=== PATIENT | female | born 1940 | race Caucasian/White ===

== ENCOUNTER 2017-01-13 11:40 | Emergency (ER) | payer OTHER ==
[2017-01-13 12:00] VITALS: TEMP 98.2; BMI 27.3
[2017-01-13 13:50] LABS: BASOPHIL 0.6 % (0-2.0); EOSINOPHIL 5.6 % (0-4.5); MCH 31.7 pg (25.7-33.7); MCHC 34.4 g/dl (32.0-36.0); MEAN CELL VOLUME 91.9 fl (80-96); MEAN PLT VOLUME 8.4 fl (7.5-11.1); NEUTROPHILS 61.6 % (42.8-82.8); PLATELET COUNT 108 K/MM3 (134-434); RDW 13.4 % (11.6-15.6); WHITE BLOOD COUNT 5.1 K/mm3 (4.0-10.0)
[2017-01-13 14:44] LABS: ALBUMIN 2.8 g/dl (3.4-5.0); ANION GAP 6 (8-16); CALCIUM 9.1 mg/dL (8.5-10.1); CO2 30 mmol/L (21-32)
[2017-01-13 14:49] LABS: URINE APPEARANCE CLEAR; URINE BILIRUBIN NEGATIVE (NEGATIVE); URINE BLOOD NEGATIVE (NEGATIVE); URINE COLOR YELLOW; URINE GLUCOSE (UA) 3+ (NEGATIVE); URINE KETONE NEGATIVE (NEGATIVE); URINE LEUK ESTERASE TRACE (NEGATIVE); URINE NITRITE NEGATIVE (NEGATIVE); URINE PROTEIN NEGATIVE (NEGATIVE); URINE UROBILINOGEN NEGATIVE mg/dL (0.2-1.0)
[2017-01-13 14:50] LABS: ALK PHOS 193 U/L (45-117); BILIRUBIN,TOTAL 1.7 mg/dL (0.2-1.0); CPK 51 IU/L (26-192); CREATININE 0.7 mg/dL (0.55-1.02); SGOT/AST 63 U/L (15-37); SGPT/ALT 44 U/L (12-78); TOT PROT 7.2 g/dl (6.4-8.2); TROPONIN I < 0.02 ng/ml (0.00-0.05)
[2017-01-13 14:53] LABS: URINE BACTERIA FEW /hpf (NONE SEEN); URINE HYALINE CAST 3 /lpf; URINE RBC <1 /hpf (0-3); URINE WBC 7 /hpf (3-5)
[2017-01-13 14:56] LABS: GLUCOSE,RANDOM 317 mg/dL (74-106)
[2017-01-13] MEDS ORDERED: Insulin (LOG) Aspart 100 UNITS/ML VIAL SQ ONE (15:00)
[2017-01-13] MEDS ORDERED: ACETAMINOPHEN 325 MG TABLET (FP) PO ONE (15:23)
[2017-01-13] MEDS ORDERED: ACETAMINOPHEN 325 MG TABLET (FP) ONE (15:31)
--- NOTE | 2017-01-13 15:31 | EKG ---
Test Reason : Blood Pressure : / mmHG Vent. Rate : 074 BPM Atrial Rate : 074 BPM P-R Int : 154 ms QRS Dur : 086 ms QT Int : 396 ms P-R-T Axes : 066 008 034 degrees QTc Int : 439 ms NORMAL SINUS RHYTHM POSSIBLE LEFT ATRIAL ENLARGEMENT POSSIBLE ANTERIOR INFARCT , AGE UNDETERMINED ABNORMAL ECG WHEN COMPARED WITH ECG OF 07-DEC-2015 17:58, NO SIGNIFICANT CHANGE WAS FOUND Confirmed by MARYANA SHEPARD, KEITH ([id number]) on 01/13/2017 3:31:21 PM Referred By: Confirmed By:KEITH MIJARES MD
--- NOTE | 2017-01-13 17:02 | PDOC ---
*Physical Exam - Vital Signs Last Vital Signs Temp Pulse Resp BP Pulse Ox 98.2 F 71 18 154/74 98 01/13/17 11:53 01/13/17 15:44 01/13/17 15:44 01/13/17 15:44 01/13/17 15:44 - Physical Exam General Appearance: Yes: Nourished, Appropriately Dressed HEENT: positive: EOMI Neck: positive: Supple Respiratory/Chest: positive: Lungs Clear Cardiovascular: positive: Regular Rhythm, Regular Rate Vascular Pulses: Dorsalis-Pedis (R): 2+ Gastrointestinal/Abdominal: positive: Normal Bowel Sounds, Soft Musculoskeletal: positive: Normal Inspection Extremity: positive: Normal Capillary Refill, Normal Range of Motion Integumentary: positive: Normal Color, Dry, Warm Neurologic: positive: kiln firer helper II-XII NML intact, Fully Oriented, Alert, Motor Strength 09/10 ED Treatment Course - LABORATORY CBC & Chemistry Diagram: 01/13/17 12:57 01/13/17 12:57 - ADDITIONAL ORDERS Additional order review: Laboratory Results 01/13/17 01/13/17 14:33 12:57 Sodium 139 Potassium 4.7 Chloride 103 Carbon Dioxide 30 D Anion Gap 6 L BUN 7 Creatinine 0.7 Creat Clearance w eGFR > 60 Random Glucose 317 H* D Calcium 9.1 Total Bilirubin 1.7 H AST 63 H D ALT 44 D Alkaline Phosphatase 193 H Creatine Kinase 51 Troponin I < 0.02 Total Protein 7.2 Albumin 2.8 L D Urine Color Yellow Urine Appearance Clear Urine pH 6.0 Urine Protein Negative Urine Glucose (UA) 3+ H D Urine Ketones Negative Urine Blood Negative Urine Nitrite Negative Urine Bilirubin Negative Urine Urobilinogen Negative Ur Leukocyte Esterase Trace Urine RBC <1 Urine WBC 7 Ur Epithelial Cells Rare Urine Bacteria Few Hyaline Casts 3 01/13/17 12:57 RBC 4.41 MCV 91.9 MCHC 34.4 RDW 13.4 D MPV 8.4 D Neutrophils % 61.6 Lymphocytes % 24.5 Monocytes % 7.7 Eosinophils % 5.6 H D Basophils % 0.6 - Medications Given in the ED: ED Medications Discontinued Medications Generic Name Dose Route Start Last Admin Trade Name Freq PRN Reason Stop Dose Admin Acetaminophen 650 mg 01/13/17 15:23 01/13/17 15:35 Tylenol - PO 01/13/17 15:24 650 mg ONCE ONE Administration Insulin Aspart 10 units 01/13/17 15:00 01/13/17 15:34 Novolog SQ 01/13/17 15:01 10 units ONCE ONE Administration Medical Decision Making - Medical Decision Making 01/13/17 17:16 pt signed out pending repeat bg repeat bg was 220. pt denies all complaints at this time no cp had mild milner which has improved discussed lab results. pt stable for d/c to home with aide. answered all questions. *DC/Admit/Observation/Transfer Diagnosis at time of Disposition: Diabetes, Hyperglycemia - Discharge Dispostion Disposition: HOME Condition at time of disposition: Stable Admit: No - Referrals Referrals: Jose Harman MD [Primary Care Provider] - Kraig Matos MD [Staff Physician] - - Patient Instructions Additional Instructions: Please follow-up with Boring Machine Set Up Operator Jig and Primary Care Doctor. Please check blood sugars four times a day: before each meal and at bedtime. Desired blood sugar range is 80-120. Please return to the hospital if chest pain returns or worsens.
--- NOTE | 2017-01-13 17:04 | PDOC ---
History of Present Illness - General Chief Complaint: Chest Pain Stated Complaint: CHEST PAIN, DIZZINESS,N/V Time Seen by Provider: 01/13/17 12:07 History Source: Patient, Care Provider (Aide at bedside.) Exam Limitations: Language Barrier (Azeri speaking, windows systems engineer used. Son came later and can tranlate.) - History of Present Illness Initial Comments: 76yo F with PMH of CVA, DM, htn, hypercholesterolemia presents c/o midsternal chest pain. Pt reports having 2 episodes of chest pain: once 2 days ago which resolved on its own, and again this morning. Pt took Tylenol this morning which did not relieve the pain. The pain is worse when walking/with movement, and better with rest. Pain is non-radiating substernal, rated 7/10. Pt also c/ o dizziness, nausea, a systolic blood pressure of 200 (did not recall diastolic ) and a blood glucose of 324 this morning at the onset of the chest pain. Pt denies fever, palpitations, SOB. 01/13/17 16:39 Associated Symptoms: reports: chest pain, nausea/vomiting. denies: diaphoresis , fever/chills, headaches, syncope Aspirin Received prior to arrival: Yes: 81 mg x 1 Past History - Past Medical History Allergies/Adverse Reactions: Allergies Allergy/AdvReac Type Severity Reaction Status Date / Time levofloxacin [From Levaquin] Allergy Intermediate Rash Verified 01/13/17 11:53 Penicillins Allergy Rash Verified 01/13/17 11:53 sulfamethoxazole AdvReac Intermediate Verified 01/13/17 11:53 [From Bactrim] trimethoprim [From Bactrim] AdvReac Intermediate Verified 01/13/17 11:53 Home Medications: Ambulatory Orders Aspirin [ASA -] 81 mg PO DAILY 10/09/14 Atorvastatin Ca [Lipitor] 10 mg PO DAILY 10/09/14 Nadolol 40 mg PO DAILY 10/09/14 Albuterol Sulfate [Proventil HFA Inhaler -] 1 - 2 inh PO Q4H PRN 07/03/15 Ranitidine [Zantac -] 150 mg PO BID #60 tablet 12/17/15 Rifampin [Rifadin -] 600 mg PO MoWeFr@10 #24 capsule 12/17/15 Insulin (Levemir) [Levemir Flexpen -] 0 units SQ DAILY 01/13/17 Anemia: Yes Asthma: Yes Cancer: Yes (LEFT BREAST) Cardiac Disorders: Yes CVA: Yes (08/2011; 06/2013, right sided weakness) Diabetes: Yes GI Disorders: Yes (HX. ULCERS,ESOPHAGEAL VARICES) HTN: Yes Hypercholesterolemia: Yes Liver Disease: Yes (ALCOHOL CIRRHOSIS??-ASCITES) Psychiatric Problems: Yes (ANXIETY.) - Surgical History Cardiac Surgery: Yes (STENT X 1 in LAD 1979) - Immunization History Immunization Up to Date: Yes - Psycho/Social/Smoking Cessation Hx Anxiety: Yes Suicidal Ideation: No Smoking Status: Yes Smoking History: Former smoker Years of Tobacco Use: 5 Have you smoked in the past 12 months: No Number of Cigarettes Smoked Daily: 0 If you are a former smoker, when did you quit?: over 30 years ago Information on smoking cessation initiated: No Hx Alcohol Use: No Drug/Substance Use Hx: No Substance Use Type: None Hx Substance Use Treatment: Yes (ALCOHOL) Review of Systems - Review of Systems Constitutional: No: Chills, Diaphoresis, Fever HEENTM: No: Recent change in vision, Ear Pain, Nose Pain, Throat Pain Respiratory: No: Cough, Shortness of Breath, Stridor, Wheezing, Hemoptysis Cardiac (ROS): Yes: Chest Pain. No: Edema, Irregular Heart Rate, Lightheadedness, Palpitations, Syncope, Chest Tightness ABD/GI: Yes: Nausea. No: Abdominal Distended, Constipated, Diarrhea, Vomiting, Abdominal cramping : No: Dysuria, Hematuria Musculoskeletal: No: Joint Pain, Muscle Pain Integumentary: No: Bruising, Erythema, Rash Neurological: Yes: Dizziness. No: Headache *Physical Exam - Vital Signs Last Vital Signs Temp Pulse Resp BP Pulse Ox 98.2 F 71 18 154/74 98 01/13/17 11:53 01/13/17 15:44 01/13/17 15:44 01/13/17 15:44 01/13/17 15:44 - Physical Exam General Appearance: Yes: Nourished, Appropriately Dressed. No: Apparent Distress HEENT: positive: EOMI, Normal Voice. negative: Pale Conjunctivae, Scleral Icterus (R), Scleral Icterus (L), Rhinorrhea Neck: positive: Trachea midline, Supple Respiratory/Chest: positive: Lungs Clear, Normal Breath Sounds. negative: Respiratory Distress, Accessory Muscle Use Cardiovascular: positive: Regular Rhythm, Regular Rate, S1, S2. negative: Murmur Gastrointestinal/Abdominal: positive: Soft. negative: Distended, Guarding, Rebound, Tenderness Extremity: negative: Swelling, Calf Tenderness, Erythema Integumentary: positive: Dry, Warm. negative: Diaphoresis, Rash Neurologic: positive: Fully Oriented, Alert, Normal Mood/Affect ED Treatment Course - LABORATORY CBC & Chemistry Diagram: 01/13/17 12:57 01/13/17 12:57 - ADDITIONAL ORDERS Additional order review: Laboratory Results 01/13/17 01/13/17 14:33 12:57 Sodium 139 Potassium 4.7 Chloride 103 Carbon Dioxide 30 D Anion Gap 6 L BUN 7 Creatinine 0.7 Creat Clearance w eGFR > 60 Random Glucose 317 H* D Calcium 9.1 Total Bilirubin 1.7 H AST 63 H D ALT 44 D Alkaline Phosphatase 193 H Creatine Kinase 51 Troponin I < 0.02 Total Protein 7.2 Albumin 2.8 L D Urine Color Yellow Urine Appearance Clear Urine pH 6.0 Urine Protein Negative Urine Glucose (UA) 3+ H D Urine Ketones Negative Urine Blood Negative Urine Nitrite Negative Urine Bilirubin Negative Urine Urobilinogen Negative Ur Leukocyte Esterase Trace Urine RBC <1 Urine WBC 7 Ur Epithelial Cells Rare Urine Bacteria Few Hyaline Casts 3 01/13/17 12:57 RBC 4.41 MCV 91.9 MCHC 34.4 RDW 13.4 D MPV 8.4 D Neutrophils % 61.6 Lymphocytes % 24.5 Monocytes % 7.7 Eosinophils % 5.6 H D Basophils % 0.6 - RADIOLOGY Radiology Studies Ordered: Category Date Time Status CHEST X-RAY PORTABLE* [RAD] Stat Radiology 01/13/17 12:47 Completed - Medications Given in the ED: ED Medications Discontinued Medications Generic Name Dose Route Start Last Admin Trade Name Freq PRN Reason Stop Dose Admin Acetaminophen 650 mg 01/13/17 15:23 01/13/17 15:35 Tylenol - PO 01/13/17 15:24 650 mg ONCE ONE Administration Insulin Aspart 10 units 01/13/17 15:00 01/13/17 15:34 Novolog SQ 01/13/17 15:01 10 units ONCE ONE Administration Medical Decision Making - Medical Decision Making 76yo F with PMH of CVA, DM, htn, hypercholesterolemia presents c/o mid sub- sternal chest pain. Pt also c/o dizziness, nausea, htn and hyperglycemia at the onset of chest pain this morning. Pt reports no longer feeling dizzy or nauseous. Blood pressure is improved to 149/68. Pt was last in hospital on for pneumonia. Pt reports that she has a new Smeller and does not remember the name. Last echo in hospital records was from 12/09/15 revealing EF of 75% and increased tricuspid regurg since 02/2015. Pt's PMD is Dr. Kraig Matos and pt reports she follows an Manager Sign at that office. EKG reveals NSR, possible Left atrial enlargement CXR reveals mild increased alvarez central markings -> mild pulmonary venous congestion vs interstitial infiltrates troponins (-) CBC with diff and CMP remarkable for hyperglycemia (317) UA reveals +3 glucosuria Pt reports chest pain has resolved, but she now has a headache. Novolog 10U SQ given for hyperglycemia Tylenol 650mg PO given for headache poc Glucose reassessed 1 hr later -> 220 Pt stable to be discharged home with aide. Pt should follow-up with her PMD and /or Manager Sign. Diet education given and regular blood sugar checks were encouraged. 01/13/17 17:52 *DC/Admit/Observation/Transfer Diagnosis at time of Disposition: Diabetes, Hyperglycemia - Discharge Dispostion Admit: No - Referrals Referrals: Jose Harman MD [Primary Care Provider] - Kraig Matos MD [Staff Physician] - - Patient Instructions Printed Discharge Instructions: DI for Atypical Chest Pain Additional Instructions: Please follow-up with Manager Sign and Primary Care Doctor. Please check blood sugars four times a day: before each meal and at bedtime. Desired blood sugar range is 80-120. Please return to the hospital if chest pain returns or worsens.
[2017-01-13 17:32] VITALS: BP 134/71; PULSE 68
--- NOTE | 2017-01-15 14:46 | PDOC ---
Patient Follow-up (Call Back) - Post ED Follow - Up Condition at time of discharge: Stable Disposition at time of original discharge: HOME Reason for Call Back: Abnwl. Microbiology (+ucx (see sensitivities) Pt not on abx. Called pt, reports intermittent dysuria, no flank pain, n/v/f/c. Rx for macrobid sent to pharmacy given pt's allergies (cr wnl) pt to f/u with PMD)
== END 2017-01-13 17:25 | disposition home or self-care (01) ==
LOC: JER 11:40
PROC: 3E013VG Introduction of Insulin into Subcutaneous Tissue, Percutaneous Approach (ICD-10-PCS; principal; 2017-01-13)
DX: E11.65 Type 2 diabetes mellitus with hyperglycemia (principal); Z79.4 Long term (current) use of insulin; I25.10 Atherosclerotic heart disease of native coronary artery without angina pectoris; I10 Essential (primary) hypertension; Z95.5 Presence of coronary angioplasty implant and graft; I69.851 Hemiplegia and hemiparesis following other cerebrovascular disease affecting right dominant side; Z85.3 Personal history of malignant neoplasm of breast; E78.00 Pure hypercholesterolemia, unspecified; K70.30 Alcoholic cirrhosis of liver without ascites; J44.9 Chronic obstructive pulmonary disease, unspecified; Z87.891 Personal history of nicotine dependence
CPT/HCPCS: 36415; 71010-TC; 80053; 81003; 81015; 84484; 85025; 87086; 87186; 93005; 93010; 99283-25

== ENCOUNTER 2017-09-01 18:44 | Inpatient (IN) | payer OTHER ==
--- NOTE | 2017-09-01 18:51 | PDOC ---
Attending Attestation - [facility] HPI: 09/01/17 19:25 Patient is a 77 yo F with PMH of cirrhosis (secondary to etoh abuse), ascites, thrombocytopenia, left breast cancer, GI bleeds (esophageal), thyroid disorder , CVA (4 years ago- left facial (resolved), residual right sided weakness), CAD with stents DM, HTN, anemia, hypercholesterolemia, anxiety, and hyponatremia, who was BIBA for possible stroke. Patient states that since 10 this morning she felt heaviness in her tongue and left sided weakness. At baseline she uses a walker and was heading to the store when around 2pm when she noticed a significant change in speech with left sided weakness. Afterwards, she states that her headache began. She also notes sob and productive cough with brown sputum. She admits to some chest pressure. Her son came home from work three hours prior to arrival to the ER and called 911. Currently the son notes that the patients speech is still slurred. - Physicial Exam PE: 09/01/17 19:32 Constitutional: Awake, alert, oriented. No acute distress. Head: Left facial droop and weakness. Atraumatic Eyes: PERRL. EOMI. Conjunctivae are not pale. ENT: Mucous membranes are moist and intact. Posterior pharynx without exudates or erythema. Uvula midline. Neck: Supple. Full ROM. No lymphadenopathy. Cardiovascular: Regular rate. Regular rhythm. S1, S2 regular. Distal pulses are 2+ and symmetric. Pulmonary/Chest: Rhonchorous breath sounds - left greater than right. . Abdominal: Soft and non-distended. There is no tenderness. No rebound, guarding or rigidity. No organomegaly. No palpable masses. Good bowel sounds. Back: No CVA tenderness. Musculoskeletal: No edema. No cyanosis. No clubbing. Full range of motion in all extremities. Nocalf tenderness. Radial/pedal pulses are intact and 2+ bilaterally Skin: Skin is warm and dry. No petechiae. No purpura. Neurological: Alert and oriented to person, place, and time. Cranial nerves II -XII are grossly intact. Slurred speech according to patient's son. Strength - LUE 4/5, LLE 5/5, RUE & RLE 4/5 (old and chronic from previous CVA). No sensory deficits. Psychiatric: Good eye contact. Normal interaction, affect and behavior. <Francois,Arpita - Last Filed: 09/01/17 19:25> - Resident Resident Name: DianeLaron - ED Attending Attestation I have performed the following: I have examined & evaluated the patient, The case was reviewed & discussed with the resident, I agree w/resident's findings & plan, Exceptions are as noted - Critical Care Time Total Critical Care Time: 30 Critical Care Statement: The care of this patient involved high complexity decision making to prevent further life threatening deterioration of the patient 's condition and/or to evaluate & treat vital organ system(s) failure or risk of failure. - Medical Decision Making 09/01/17 18:50 I, Dr. Graciela Lobato, DO, attest that this document has been prepared under my direction and personally reviewed by me in its entirety. I further attest, that it accurately reflects all work, treatment, procedures and medical decision -making performed by me. 09/01/17 19:59 a/p: 77yo female with L facial droop, slurred speech, L sided weakness since 10a -hx of CVA in the past with r sided weakness -had L facial weakness during prior cva 4 years ago, facial weakness resolved, but R sided weakness persisted -onset at 10a -no falls, +milner -cough - concerning for pna -will check labs, ekg, cxr, trop, head ct for eval of cva -outside the window for TPA -discussed the plan with the son - will need admission -PMD is Dr. Harman 09/01/17 20:[address] Alamo - recommends admission, ASA 324, lipitor 80, MRI brain without will see patient in consult pt follows with Dr. Harman - covered by [employer] overnight 09/01/17 20:[address] Franco who accepts pt to service <Graciela Lobato - Last Filed: 09/01/17 20:24> Heart Score/ECG Review - ECG Intrepretation Comment:: 09/01/17 19:58 sinus rajeev at 53, nl axis, nl interval, q waves septally that are age indeterminate, no acute st/t wave findings <Graciela Lobato - Last Filed: 09/01/17 20:24> tPA Exclusion checklist 3-4.5h - Time Elapsed Date last known well: 09/01/17 Time last known well: 10:00 Elaspsed time: Day(s) and 10 Hour(s) and 23 Minutes - Thrombolytic Therapy Candidate Is patient eligible for thrombolytic therapy: No - Ineligibility reason(s) Reasons No tPA given: Outside of window - delayed arrival (onset of tongue weakness, slurred speech and L sided heaviness was 10a) <Graciela Lobato - Last Filed: 09/01/17 20:24>
[2017-09-01] MEDS ORDERED: SODIUM CHLORIDE 1,000 ML IV SCH (19:00)
[2017-09-01 19:18] LABS: BASO % 0.4 % (0-2.0)
[2017-09-01 19:20] LABS: EOS % 4.2 % (0-4.5); HEMATOCRIT 40.7 % (32.4-45.2); HEMOGLOBIN 14.2 GM/dL (10.7-15.3); LYMPH % 27.5 % (8-40); MCH 31.4 pg (25.7-33.7); MCHC 34.9 g/dl (32.0-36.0); MEAN CELL VOLUME 89.9 fl (80-96); MONO % 8.9 % (3.8-10.2); PLATELET COUNT 109 K/MM3 (134-434); RBC 4.52 M/mm3 (3.60-5.2); RDW 14.4 % (11.6-15.6); WHITE BLOOD COUNT 5.6 K/mm3 (4.0-10.0)
--- NOTE | 2017-09-01 19:26 | PDOC ---
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 The patient reports onset of a sensation of a heavy tongue as well as slurred speech and worsening left sided weakness at 10am this morning. She report continued symptoms throughout the day prompting her presentation to the ED for further evaluation. She otherwise denies fevers , chills, SOB, chest pain, palpitations, numbness, nausea, vomiting, headache, abdominal pain, or changes with urination or bowel movements. <Laron Contreras - Last Filed: 09/01/17 20:35> - General Chief Complaint: CVA/TIA Stated Complaint: SLURRED SPEECH/WEAKNESS Time Seen by Provider: 09/01/17 18:49 NIH Stroke Scale - Last Known Well Date/Time & Onset Date Last Known Well: 09/01/17 Time Last Known Well: 10:00 - Initial Evaluation Level of consciousness: Alert Ask patient the month and their age: Answers both correctly Ask patient to open & close eyes; make fist and let go: Obeys both correctly Best gaze (horizontal eye movement): Normal Visual field testing: No visual field loss Facial paresis (Show teeth/raise eyebrows/close eyes tight): Minor paralysis ( flattened nasolabial fold, asymmetry on smiling) Motor Function: Left Arm: Normal Motor Function: Right Arm: Normal (extends arm 90 (or 45) degrees for 10 seconds without drift Motor Function: Left Leg: Normal (extends leg 30 degrees for 5 seconds without drift) Motor Function: Right Leg: Drift Limb Ataxia: No ataxia Sensory(Use pinprick test arms,legs,trunk,face/side to side): Normal Best language (Describe picture, name items, read sentences): No Aphasia Dysarthria (read several words): Mild to moderate slurring of words Extinction and Inattention: No abnormality - Total Score NIH Stroke Scale Score: 3 <Laron Contreras - Last Filed: 09/01/17 20:35> Past History <Arpita Parrish - Last Filed: 09/01/17 20:19> - Past Medical History Anemia: Yes Asthma: Yes Cancer: Yes (LEFT BREAST) Cardiac Disorders: Yes CVA: Yes (08/2011; 06/2013, right sided weakness) Diabetes: Yes GI Disorders: Yes (HX. ULCERS,ESOPHAGEAL VARICES) HTN: Yes Hypercholesterolemia: Yes Liver Disease: Yes (ALCOHOL CIRRHOSIS??-ASCITES) Psychiatric Problems: Yes (ANXIETY.) - Surgical History Cardiac Surgery: Yes (STENT X 1 in LAD 1979) - Immunization History Immunization Up to Date: Yes - Suicide/Smoking/Psychosocial Hx Smoking Status: Yes Smoking History: Former smoker Years of Tobacco Use: 5 Have you smoked in the past 12 months: No Number of Cigarettes Smoked Daily: 0 If you are a former smoker, when did you quit?: over 30 years ago Hx Alcohol Use: No Drug/Substance Use Hx: No Substance Use Type: None Hx Substance Use Treatment: Yes (ALCOHOL) <Laron Contreras - Last Filed: 09/01/17 20:35> - Past Medical History Allergies/Adverse Reactions: Allergies Allergy/AdvReac Type Severity Reaction Status Date / Time levofloxacin [From Levaquin] Allergy Intermediate Rash Verified 01/13/17 11:53 Penicillins Allergy Rash Verified 01/13/17 11:53 sulfamethoxazole AdvReac Intermediate Verified 01/13/17 11:53 [From Bactrim] trimethoprim [From Bactrim] AdvReac Intermediate Verified 01/13/17 11:53 Home Medications: Ambulatory Orders Aspirin [ASA -] 81 mg PO DAILY 10/09/14 Atorvastatin Ca [Lipitor] 10 mg PO DAILY 10/09/14 Nadolol 40 mg PO DAILY 10/09/14 Albuterol Sulfate [Proventil HFA Inhaler -] 1 - 2 inh PO Q4H PRN 07/03/15 Ranitidine [Zantac -] 150 mg PO BID #60 tablet 12/17/15 Rifampin [Rifadin -] 600 mg PO MoWeFr@10 #24 capsule 12/17/15 Insulin (Levemir) [Levemir Flexpen -] 0 units SQ DAILY 01/13/17 Nitrofurantoin Monohyd/M-Cryst [Macrobid -] 100 mg PO BID #14 capsule 01/15/17 Review of Systems - Review of Systems Comments:: 09/01/17 20:28 Constitutional: No fevers, chills, fatigue, malaise HEENT: No Rhinorrhea, nasal congestion, visual changes Cardiovascular: No chest pain, syncope, palpitations, lightheadedness Respiratory: No Cough, SOB, Hemoptysis, Gastrointestinal: No Abdominal pain, Nausea, Vomiting, Constipation, Diarrhea, Melena Genitourinary: No Dysuria, Frequency, Urgency, Hesitancy, Hematuria, Flank pain Musculoskeletal: No Myalgia, arthralgia Skin: No rashes, itching, bruising, pallor Neurologic: Weakness, Slurred Speech. No Headache, Dizziness, Numbness, or Tingling Psychiatric: No Hallucinations. No SI or HI <Laron Contreras - Last Filed: 09/01/17 20:35> *Physical Exam - Physical Exam Comments: 09/01/17 20:29 General Appearance: Nourished. No Apparent Distress HEENT: EOMI, QUYEN. No Pharyngeal Erythema, Tonsillar Exudate, Tonsillar Erythema Neck: No Cervical Lymphadenopathy Respiratory/Chest: Lungs Clear, Normal Breath Sounds. No Crackles, Rales, Rhonchi, Wheezing Cardiovascular: Regular Rhythm, Regular Rate. No Murmur, Gallops, Rubs Gastrointestinal/Abdominal: Normal Bowel Sounds, Soft. No Guarding, Rebound, Tenderness Musculoskeletal: No CVA Tenderness Extremity: Normal Capillary Refill Integumentary: Normal Color, Dry, Warm Neurologic: Left sided facial droop noted on exam. No visual field deficits. Fully Oriented, Alert, Normal Mood/Affect, Normal Response, Motor Strength 5/5 in the left leg. Motor strength 3/5 on the right leg. Telephone Lines Repairer strength 4/5 on the left and 3/5 on the right. Normal Finger to Nose and Heel to Pratt <Laron Contreras - Last Filed: 09/01/17 20:35> ED Treatment Course - LABORATORY CBC & Chemistry Diagram: 09/01/17 19:10 09/01/17 19:10 - ADDITIONAL ORDERS Additional order review: Laboratory Results 09/01/17 09/01/17 19:10 19:10 PT with INR 13.90 H INR 1.23 H Sodium 139 Potassium 4.3 Chloride 105 Carbon Dioxide 29 Anion Gap 5 L BUN 12 Creatinine 0.7 Creat Clearance w eGFR > 60 Random Glucose 231 H Calcium 8.5 Total Bilirubin 1.8 H AST 61 H ALT 37 Alkaline Phosphatase 119 H Creatine Kinase 65 Troponin I < 0.02 Total Protein 6.9 Albumin 2.8 L Triglycerides 74 Cholesterol 137 Total LDL Cholesterol 72 HDL Cholesterol 64 H 09/01/17 19:10 RBC 4.52 MCV 89.9 MCHC 34.9 RDW 14.4 MPV 9.0 Neutrophils % 59.0 Lymphocytes % 27.5 Monocytes % 8.9 Eosinophils % 4.2 Basophils % 0.4 - RADIOLOGY Radiograph Interpretation: 09/01/17 20:[address] Impression: No CT evidence of acute intracranial pathology Small chronic left thalamic infarct. Reported By: Carlos Butler MD 09/01/17 2018 <Arpita Parrish - Last Filed: 09/01/17 20:19> - LABORATORY CBC & Chemistry Diagram: 09/01/17 19:10 09/01/17 19:10 - ADDITIONAL ORDERS Additional order review: 09/01/17 19:10 RBC 4.52 MCV 89.9 MCHC 34.9 RDW 14.4 MPV 9.0 Neutrophils % 59.0 Lymphocytes % 27.5 Monocytes % 8.9 Eosinophils % 4.2 Basophils % 0.4 - RADIOLOGY Radiology Studies Ordered: Category Date Time Status HEAD CT (STROKE) [CT] Stat CT Scan 09/01/17 18:50 Ordered <Laron Contreras - Last Filed: 09/01/17 20:35> Medical Decision Making - Medical Decision Making 09/01/17 20:31 The patient is a 77 year old female with a history of HTN, HLD, DM, CAD, 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 Differential includes but is not limited to: CVA, TIA, Infectious, Metabolic derangement. Given the patient's onset of symptoms at 10am, the patient is not a candidate for TPa at this time. CT head does not demonstrate any acute evidence of stroke as read by our radiologist. CBC, cmp, troponin, coags are unremarkable. We discussed the case with Dr. Alamo with neurology who agrees the patient make continue to be experiencing a cva due to her continued symptoms here in the ED and would benefit from MRI, ASA, Lipitor and admission. We discussed the case with the hospitalist team who accepted the patient for admission. We will continue to monitor and reassess the patient while here in the ED. <Laron Contreras - Last Filed: 09/01/17 20:35> *DC/Admit/Observation/Transfer <Arpita Parrish - Last Filed: 09/01/17 20:19> - Discharge Dispostion Admit: Yes <Laron Contreras - Last Filed: 09/01/17 20:35> Diagnosis at time of Disposition: Cerebrovascular accident (CVA) Qualifiers: CVA mechanism: unspecified Qualified Code(s): I63.9 - Cerebral infarction, unspecified - Discharge Dispostion Condition at time of disposition: Stable
[2017-09-01 19:46] LABS: INR 1.23 (0.82-1.09); PROTHROMBIN TIME (PATIENT) 13.9 SEC (9.7-13.0)
[2017-09-01 19:58] LABS: ALBUMIN 2.8 g/dl (3.4-5.0); ANION GAP 5 (8-16); BLOOD UREA NITROGEN 12 mg/dL (7-18); CALCIUM 8.5 mg/dL (8.5-10.1); CHLORIDE 105 mmol/L (98-107); CHOLESTEROL 137 mg/dL (50-200); CO2 29 mmol/L (21-32); CREATININE 0.7 mg/dL (0.55-1.02); GLUCOSE,RANDOM 231 mg/dL (74-106); POTASSIUM 4.3 mmol/L (3.5-5.1); SGOT/AST 61 U/L (15-37); SGPT/ALT 37 U/L (12-78); SODIUM 139 mmol/L (136-145); TRIGLYCERIDES 74 mg/dL (35-160)
[2017-09-01 20:00] LABS: ALK PHOS 119 U/L (45-117); BILIRUBIN,TOTAL 1.8 mg/dL (0.2-1.0); HDL CHOLESTEROL 64 mg/dL (40-60); TOT PROT 6.9 g/dl (6.4-8.2)
[2017-09-01] MEDS ORDERED: ASPIRIN 81 MG CHEWABLE TABLETS PO ONE (20:17)
[2017-09-01] MEDS ORDERED: ATORVASTATIN CA 80 MG TABLET (FP) PO ONE (20:17)
[2017-09-01 20:35] LABS: URINE APPEARANCE CLEAR; URINE BILIRUBIN NEGATIVE (<2.0 mg/dL); URINE BLOOD NEGATIVE (NEGATIVE); URINE COLOR YELLOW; URINE GLUCOSE (UA) NEGATIVE (NEGATIVE); URINE KETONE NEGATIVE (NEGATIVE); URINE LEUK ESTERASE TRACE (NEGATIVE); URINE NITRITE NEGATIVE (NEGATIVE); URINE PROTEIN NEGATIVE (NEGATIVE); URINE UROBILINOGEN 4.0 E.U/dl mg/dL (0.2-1.0)
[2017-09-01 20:38] LABS: EPI CELLS RARE /HPF (FEW); URINE BACTERIA RARE /hpf (NONE SEEN)
[2017-09-01] MEDS ORDERED: ASPIRIN 81 MG CHEWABLE TABLETS ONE (20:43)
[2017-09-01] MEDS ORDERED: ATORVASTATIN CA 80 MG TABLET (FP) ONE (20:43)
[2017-09-01] MEDS ORDERED: ALBUTEROL SO4 18 GM HFA INHALER IH PRN (21:31)
--- NOTE | 2017-09-01 21:41 | HP ---
CHIEF COMPLAINT: L sided weakness PCP: Dr Harman (from chart) HISTORY OF PRESENT ILLNESS: 77yo F with an extensive cardiac hx, and PMHx of alcoholic cirrhosis and 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 She also notes R arm intentional tremors that are new. Symptoms started 10am this morning. She was noted to have speech slurring in the ER, which resolved on our exam. Has prior L thalamic infarct. In the ER, she was hemodynamically stable. She was found to have a NIHSS of 3. SHe was not given tPA since she was out of the window. Head CT shows prior small L thalamic infarct but no new infarct. She is currently getting an MRI and MRA of head & neck. EKG shows some flattened T waves in lateral leads. Recent Travel: Denies PAST MEDICAL HISTORY: Cirrhosis (secondary to etoh abuse), ascites, thrombocytopenia, left breast cancer, GI bleeds (esophageal), thyroid disorder , CVA (4 years ago- left facial (resolved), residual right sided weakness), CAD with stents DM, HTN, anemia, hypercholesterolemia, anxiety, and hyponatremia, PAST SURGICAL HISTORY: Cardiac stents Social History: Smoking: Denies Alcohol: Denies Drugs: Denies Allergies levofloxacin [From Levaquin] Allergy (Intermediate, Verified 09/01/17 20:34) Rash Penicillins Allergy (Verified 09/01/17 20:34) Rash sulfamethoxazole [From Bactrim] Adverse Reaction (Intermediate, Verified 20:34) dizziness, dyspepsia and nausea trimethoprim [From Bactrim] Adverse Reaction (Intermediate, Verified 09/01/17 20 :34) dizziness, dyspepsia and nausea HOME MEDICATIONS: Home Medications Medication Instructions Recorded Aspirin [ASA -] 81 mg PO DAILY 10/09/14 Atorvastatin Ca [Lipitor] 10 mg PO DAILY 10/09/14 Nadolol 40 mg PO DAILY 10/09/14 Albuterol Sulfate [Proventil HFA 1 - 2 inh PO Q4H PRN 07/03/15 Inhaler -] Ranitidine [Zantac -] 150 mg PO BID #60 tablet 12/17/15 Rifampin [Rifadin -] 600 mg PO MoWeFr@10 #24 capsule 12/17/15 Insulin (Levemir) [Levemir Flexpen 0 units SQ DAILY 01/13/17 -] Nitrofurantoin Monohyd/M-Cryst 100 mg PO BID #14 capsule 01/15/17 [Macrobid -] REVIEW OF SYSTEMS CONSTITUTIONAL: Absent: fever, chills, diaphoresis, generalized weakness, malaise, loss of appetite, weight change HEENT: Absent: rhinorrhea, nasal congestion, throat pain, throat swelling, difficulty swallowing, mouth swelling, ear pain, eye pain, visual changes CARDIOVASCULAR: Absent: chest pain, syncope, palpitations, irregular heart rate , lightheadedness, peripheral edema RESPIRATORY: Absent: cough, shortness of breath, dyspnea with exertion, orthopnea, wheezing, stridor, hemoptysis GASTROINTESTINAL:Absent: abdominal pain, abdominal distension, nausea, vomiting , diarrhea, constipation, melena, hematochezia GENITOURINARY: Absent: dysuria, frequency, urgency, hesitancy, hematuria, flank pain, genital pain MUSCULOSKELETAL: Absent: myalgia, arthralgia, joint swelling, back pain, neck pain SKIN: Absent: rash, itching, pallor HEMATOLOGIC/IMMUNOLOGIC: Absent: easy bleeding, easy bruising, lymphadenopathy, frequent infections ENDOCRINE:Absent: unexplained weight gain, unexplained weight loss, heat intolerance, cold intolerance NEUROLOGIC: Absent: headache, focal weakness or paresthesias, dizziness, unsteady gait, seizure, mental status changes, bladder or bowel incontinence PSYCHIATRIC: Absent: anxiety, depression, suicidal or homicidal ideation, hallucinations. PHYSICAL EXAMINATION Vital Signs Period Temp Pulse Resp BP Sys/Donovan Pulse Ox Last 24 Hr 98.0 F-98.6 F 55-70 15-20 131-141/54-84 96-98 GEN: AAOx3, NAD, Lying comfortably HEENT: PERRLA, EOmi, L sided facial droop with flattening of L nasolabial folds CV: S1, S2, RRR LUNG: Crackles on the R side, good air intke ABD: Soft, NT, ND MSK: 3/5 weakness in LUE and LLE. 5/5 on R side. NEURO: Full neurological exam performed. Decreased sensation to R face, RUE, and RLE. L sided facial droop. 3/5 strength on L side, 5/5 on right. Dysmetria on L hand. Intention tremor ASSESSMENT/PLAN: 77yo F with an extensive cardiac hx, and PMHx of alcoholic cirrhosis and prior L thalamic CVA 4 years ago with residual R sided weakness who presented to the ER w/ s/sx of stroke # Suspected CVA -- Patient has new L facial droop and RUE tremor. Out of tPA window. ASA and Statin given in ER. Head CT shows old infarct, nothing new. MRI/MRA pending. Will hold antiHTN meds for now. Allow permissive HTN up to 24hrs, patient's normal BP is around 130s/80s, so will tolerate up to 160s. Continue secondary prevention med mgmt w/ ASA, high intensity statin. Lipid panel ok. Echo to check for clots. NPO for now until s/s evaluates. Dr Alamo consulted in ER. # IDDM -- BGMs and ISS ACHS. Patient verbally stated she takes Levemir 50 HS, but was unsure, hold for now, confirm in AM # HTN -- Hold BB for 24 hour period # Alcoholic Cirrhosis -- Chronic. Labwork is at baseline. # Asthma -- Continue albuterol prn # FEN/PPx -- No IVF, NPO for now until s/s eval. Lovenox SQd # Dispo -- Admit to tele Case d/w Dr Botello & Dr Joan Cline MD - pGY1 Night Nursing Care Partner Visit type - Emergency Visit Emergency Visit: Yes ED Registration Date: 09/01/17 Care time: The patient presented to the Emergency Department on the above date and was hospitalized for further evaluation of their emergent condition. - New Patient This patient is new to me today: Yes Date on this admission: 09/07/17 - Critical Care Critical Care patient: No Hospitalist Screening - Colonoscopy Questionnaire Colonoscopy Questionnaire: Colonoscopy Questionnaire - Patient: 50 - 75 years old and never had a screening colonoscopy: Unknown History of colon or rectal polyps, or CA: Unknown History of IBD, Crohn's disease or UC: Unknown History of abdominal radiation therapy as a child: Unknown - Relative: 1 with colon or rectal CA, or polyps at age 60 or younger: Unknown Colon or rectal CA diagnosed at age 45 or younger: Unknown Multiple relatives with colon or rectal CA: Unknown - Outcome: Screening Result: Negative Screen
[2017-09-02] MEDS: INSULIN SLIDING SCALE (NOVOLOG) 1 VIAL SQ SCH ×5 (00:48→21:37)
[2017-09-02] MEDS: ROSUVASTATIN CA 20 MG TABLET (FP) PO SCH ×2 (00:48→22:23)
[2017-09-02 05:55] VITALS: BMI 24.2
[2017-09-02 06:35] LABS: BASO % 0.4 % (0-2.0); EOS % 5.7 % (0-4.5); HEMOGLOBIN 14.2 GM/dL (10.7-15.3); LYMPH % 32.4 % (8-40); MCH 31.7 pg (25.7-33.7); MCHC 35.6 g/dl (32.0-36.0); MEAN CELL VOLUME 89.2 fl (80-96); MEAN PLT VOLUME 8.9 fl (7.5-11.1); MONO % 8.8 % (3.8-10.2); NEUT % 52.7 % (42.8-82.8); PLATELET COUNT 95 K/MM3 (134-434); RBC 4.49 M/mm3 (3.60-5.2); RDW 14.2 % (11.6-15.6)
[2017-09-02 06:57] LABS: ALBUMIN 2.7 g/dl (3.4-5.0); ANION GAP 4 (8-16); BILIRUBIN,TOTAL 2.1 mg/dL (0.2-1.0); BLOOD UREA NITROGEN 9 mg/dL (7-18); CALCIUM 8.1 mg/dL (8.5-10.1); CHLORIDE 112 mmol/L (98-107); CO2 28 mmol/L (21-32); CREATININE 0.6 mg/dL (0.55-1.02); GLUCOSE,RANDOM 115 mg/dL (74-106); MAGNESIUM 1.6 mg/dL (1.8-2.4); PHOSPHOROUS 3.1 mg/dL (2.5-4.9); POTASSIUM 3.6 mmol/L (3.5-5.1); SGOT/AST 65 U/L (15-37); SGPT/ALT 38 U/L (12-78); SODIUM 144 mmol/L (136-145); TOT PROT 6.6 g/dl (6.4-8.2)
[2017-09-02 07:06] LABS: ALK PHOS 123 U/L (45-117)
--- NOTE | 2017-09-02 07:50 | PN ---
Teaching Attending Note Name of Resident: Flavia Cline ATTENDING PHYSICIAN STATEMENT I saw and evaluated the patient. I reviewed the resident's note and discussed the case with the resident. I agree with the resident's findings and plan as documented. Patient is Slovak speaking and presented c/o right sided weakness in upper and lower extremity. Exam significant for 3/5 strength right side , left sided facial droop with loss of nasolabial folds. Admit to telemetry for CVA workup, MRI/MRA, ECHO, continue aspirin and plavix and atorvastatin. Permissive hypertension.
--- NOTE | 2017-09-02 09:32 | CONSULT ---
Consult - text type - Consultation Consultation Note: Neurology CHIEF COMPLAINT: L sided weakness HISTORY OF PRESENT ILLNESS: 77yo F with an extensive cardiac hx, and PMHx of alcoholic cirrhosis and 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 Symptoms began the morning of admission and in ER was concerned about slurred speech. SHe was not given tPA since she was out of the window. Head CT shows prior small L thalamic infarct but no new infarct. MRI brain, MRA head and neck, completed overnight. Prelim read of mine did not show acute infarct, but awaiting official read. She does having underlying risk factors with HTN, CAD, DM. Does report taking medication daily. Reports feeling better this morning. Carotids occurring at bedside during my evaluation. Recent Travel: Denies PAST MEDICAL HISTORY: Cirrhosis (secondary to etoh abuse), ascites, thrombocytopenia, left breast cancer, GI bleeds (esophageal), thyroid disorder , CVA (4 years ago- left facial (resolved), residual right sided weakness), CAD with stents DM, HTN, anemia, hypercholesterolemia, anxiety, and hyponatremia, PAST SURGICAL HISTORY: Cardiac stents Social History: Smoking: Denies Alcohol: Denies Drugs: Denies Allergies levofloxacin [From Levaquin] Allergy (Intermediate, Verified 09/01/17 20:34) Rash Penicillins Allergy (Verified 09/01/17 20:34) Rash sulfamethoxazole [From Bactrim] Adverse Reaction (Intermediate, Verified 20:34) dizziness, dyspepsia and nausea trimethoprim [From Bactrim] Adverse Reaction (Intermediate, Verified 09/01/17 20 :34) dizziness, dyspepsia and nausea Active Medications Albuterol Sulfate (Ventolin Hfa Inhaler -) 1 puff IH Q4H PRN PRN Reason: ASTHMA Aspirin (Asa -) 81 mg PO DAILY [facility] Enoxaparin Sodium (Lovenox -) 40 mg SQ DAILY [facility] Sodium Chloride (Normal Saline -) 1,000 mls @ 42 mls/hr IV ASDIR [facility] Last Admin: 09/01/17 20:12 Dose: 42 mls/hr Insulin Aspart (Novolog Vial Sliding Scale -) 1 vial SQ ACHS [facility] PRN Reason: Protocol Last Admin: 09/02/17 06:05 Dose: Not Given Insulin Detemir (Levemir Vial) 50 units SQ HS [facility] Rosuvastatin Calcium (Crestor -) 20 mg PO HS [facility] Last Admin: 09/02/17 00:48 Dose: 20 mg REVIEW OF SYSTEMS CONSTITUTIONAL: Absent: fever, chills, diaphoresis, generalized weakness, malaise, loss of appetite, weight change HEENT: Absent: rhinorrhea, nasal congestion, throat pain, throat swelling, difficulty swallowing, mouth swelling, ear pain, eye pain, visual changes CARDIOVASCULAR: Absent: chest pain, syncope, palpitations, irregular heart rate , lightheadedness, peripheral edema RESPIRATORY: Absent: cough, shortness of breath, dyspnea with exertion, orthopnea, wheezing, stridor, hemoptysis GASTROINTESTINAL:Absent: abdominal pain, abdominal distension, nausea, vomiting , diarrhea, constipation, melena, hematochezia GENITOURINARY: Absent: dysuria, frequency, urgency, hesitancy, hematuria, flank pain, genital pain MUSCULOSKELETAL: Absent: myalgia, arthralgia, joint swelling, back pain, neck pain SKIN: Absent: rash, itching, pallor HEMATOLOGIC/IMMUNOLOGIC: Absent: easy bleeding, easy bruising, lymphadenopathy, frequent infections ENDOCRINE:Absent: unexplained weight gain, unexplained weight loss, heat intolerance, cold intolerance NEUROLOGIC: Absent: headache, focal weakness or paresthesias, dizziness, unsteady gait, seizure, mental status changes, bladder or bowel incontinence PSYCHIATRIC: Absent: anxiety, depression, suicidal or homicidal ideation, hallucinations. PHYSICAL EXAMINATION Vital Signs Period Temp Pulse Resp BP Sys/Donovan Pulse Ox Last 24 Hr 98 F-98.6 F 55-84 15-21 117-155/54-93 96-98 GEN: AAOx3, NAD, Lying comfortably HEENT: PERRLA, EOmi, L sided facial droop with flattening of L nasolabial folds CV: S1, S2, RRR LUNG: Crackles on the R side, good air intake ABD: Soft, NT, ND MSK: 3/5 weakness in LUE and LLE. 5/5 on R side. NEURO: L sided facial droop, Diminished PP to R face, RUE, and RLE. 4+L sided, 4 - R sided. Finger to nose intact, gait deferred CT head reviewed MRI, MRA prelim reviewed ASSESSMENT/PLAN: 77yo F with an extensive cardiac hx, and PMHx of alcoholic cirrhosis and 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 Symptoms began the morning of admission and in ER was concerned about slurred speech. SHe was not given tPA since she was out of the window. ead CT showed prior small L thalamic infarct but no new infarct. MRI brain, MRA head and neck, completed overnight. Prelim read of mine did not show acute infarct, but awaiting official read. Reports feeling better this morning. Carotids occurring at bedside during my evaluation, follow up Echo Cardiology consult Monitor BP, can now treat and goal < 160/90 for now, < 130/80 as outpatient on ASA 81mg, leave the same for now, if new CVA noted on imaging then would consider Aggrenox Continue Crestor, goal LDL<70 Monitor glucose, maintain euglycemic range PT DVT PPX
--- NOTE | 2017-09-02 09:46 | EKG ---
Test Reason : Blood Pressure : / mmHG Vent. Rate : 062 BPM Atrial Rate : 062 BPM P-R Int : 172 ms QRS Dur : 096 ms QT Int : 446 ms P-R-T Axes : 063 -01 017 degrees QTc Int : 452 ms NORMAL SINUS RHYTHM INCOMPLETE RIGHT BUNDLE BRANCH BLOCK NONSPECIFIC T WAVE ABNORMALITY ABNORMAL ECG WHEN COMPARED WITH ECG OF 01-SEP-2017 18:55, NO SIGNIFICANT CHANGE WAS FOUND Confirmed by JAY SOLARES MD ([id number]) on 09/02/2017 9:45:46 AM Referred By: Confirmed By:JAY SOLARES MD
--- NOTE | 2017-09-02 09:50 | EKG ---
Test Reason : Blood Pressure : / mmHG Vent. Rate : 053 BPM Atrial Rate : 053 BPM P-R Int : 166 ms QRS Dur : 090 ms QT Int : 488 ms P-R-T Axes : 051 001 014 degrees QTc Int : 457 ms SINUS BRADYCARDIA INCOMPLETE RBBB WHEN COMPARED WITH ECG OF 13-JAN-2017 11:55, NO SIGNIFICANT CHANGE WAS FOUND Confirmed by JAY SOLARES MD ([id number]) on 09/02/2017 9:50:23 AM Referred By: Confirmed By:JAY SOLARES MD
[2017-09-02] MEDS ORDERED: PT OWN MED DRAWER 7, Y5N ONE (09:54)
[2017-09-02] MEDS ORDERED: NADOLOL 40 MG TABLET (FP) PO SCH (10:00)
[2017-09-02] MEDS: ENOXAPARIN NA (PORCINE) 40 MG/0.4 ML DISP.SYRIN SQ SCH (10:00)
[2017-09-02] MEDS: ASPIRIN 81 MG CHEWABLE TABLETS PO SCH (10:00)
--- NOTE | 2017-09-02 10:41 | CONSULT ---
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 Last seen by me in 2014. 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 Cardiovascular: Yes: CAD (stent), HTN, Hyperlipdemia Pulmonary: Yes: Asthma Gastrointestinal: Yes: Ascites (h/o sbp intolerant to bactrim and levaquin), Esophageal Varices (h/o bleeding, banding and on nadalol), GI Bleed (variceal and duodenal ulcer), Peptic Ulcer Disease, Other (diabetic gastropareis, h/o hpylori rxed with pylera) Hepatobiliary: Yes: Cirrhosis Heme/Onc: Yes: Cancer (breast s/p lumpectomy 12/21), Thrombocytopenia (due to cirrhosis) Psych: Yes: Depression Endocrine: Yes: Diabetes Mellitus (historically poor control) - Past Surgical History Past Surgical History: Yes: Colonoscopy (multiple large polyps. poor prep in past.), Stent (cardiac), Tonsillectomy, Upper Endoscopy (h/o esoph varices. on nadalol. s/p banding. due to surveillance egd in 01/2015) - Smoking History Smoking history: Former smoker Have you smoked in the past 12 months: No Aproximately how many cigarettes per day: 0 If you are a former smoker, when did you quit?: over 30 years ago - Alcohol/Substance Use Hx Alcohol Use: No - Social History ADL: Independent History - Admission Reason For Visit: CEREBROVASCULAR ACCIDENT (CVA) - Diagnostics X-ray: Report Reviewed CT Scan: Report Reviewed MRI: Report Reviewed - General Mental Status: Alert and Oriented, Awake and Alert, Able to Follow Commands Attention: Intact Ability to Follow Directions: Excellent Head/Neck Control: WFL - Hearing Hearing: Normal Speech Evaluation - Communication Primary Language: SAMOAN Communication: Yes: Within Normal Limits, Language Barrier Oral Expression Ability: Yes: No Impairment - Speech Production Able to Make Needs Known: Yes: WNL Intelligibility: Yes: WNL - Speech Characteristics Voice Loudness: Normal Voice Pitch: Yes: Normal Voice Phonatory-based Quality: Yes: Normal Speech Pattern: Normal Speech Clarity: < 100% Nasal Resonance: Normal Articulation: Yes: Precise Rate of Speech: Intact - Language/Auditory Comprehension Follows: Yes: 2 Stage Simple Commands - Language/Verbal Expression Able to Respond to Simple Queries: Yes: WNL Able to Communicate Wants and Needs: Yes: WNL Functional Communication Status: Yes: WNL - Swallow Evaluation/Bedside Assessment Current Nutritional Intake: NPO Oral Secretions: Yes: WFL Dentition: Yes: Adequate Facial Symmetry at Rest: Facial Droop Left Facial Symmetry on Retraction: Facial Droop Left Facial Movement: Controlled Against Resistance Opening: Normal Against Resistance Closing: Normal Pucker Lips: Normal Smile: Normal Lingual Movement: Symmetric Lingual Speed of Movement: Normal Lingual Movement Strgth Against Opposition: Normal Lingual Movement Characteristics: Normal Velopharyngeal Movement: Normal Laryngeal Elevation: WFL Laryngeal Movement: Able to Palpate Rate of Intake: WFL Bolus Size: WFL Labial Seal: WFL Chewing: WFL Oral Prep Time: WFL A-P Transit: WFL Pocketing: None Timing of Swallow: WFL Coughing/Throat Clear: Yes (one instance of brief throat clearing) Recommendations - Speech Evaluation, Impression/Plan Impression: Left facial weakness. Verbal. Swallowing overtly intact. - Dysphagia Impressions/Plan Dysphagia Impressions: Ongoing Evaluation *Silent aspiration: cannot be R/O at bedside Recommendations: Modified Barium Swallow (if throat clearing, cough, congestion , vocal wetness) - Recommendations Diet Consistency: Regular (soft) Medication Administration: Whole with water Liquids: Thin Liquids
--- NOTE | 2017-09-02 11:28 | PN ---
Progress Note, Physician Chief Complaint: AWAKE ALERT STILL MILDLY CONFUSED RIGHT SIDED WEAKNESS - Current Medication List Current Medications: Active Medications Albuterol Sulfate (Ventolin Hfa Inhaler -) 1 puff IH Q4H PRN PRN Reason: ASTHMA Aspirin (Asa -) 81 mg PO DAILY [facility] Last Admin: 09/02/17 10:00 Dose: 81 mg Enoxaparin Sodium (Lovenox -) 40 mg SQ DAILY [facility] Last Admin: 09/02/17 10:00 Dose: 40 mg Sodium Chloride (Normal Saline -) 1,000 mls @ 42 mls/hr IV ASDIR [facility] Last Admin: 09/01/17 20:12 Dose: 42 mls/hr Insulin Aspart (Novolog Vial Sliding Scale -) 1 vial SQ ACHS [facility] PRN Reason: Protocol Last Admin: 09/02/17 10:45 Dose: Not Given Insulin Detemir (Levemir Vial) 50 units SQ HS [facility] Rosuvastatin Calcium (Crestor -) 20 mg PO HS [facility] Last Admin: 09/02/17 00:48 Dose: 20 mg - Objective Vital Signs: Vital Signs Temperature 98 F 09/02/17 10:18 Pulse Rate 70 09/02/17 10:18 Respiratory Rate 20 09/02/17 10:18 Blood Pressure 151/71 09/02/17 10:18 O2 Sat by Pulse Oximetry (%) 98 09/02/17 08:00 Constitutional: Yes: Mild Distress Eyes: Yes: WNL HENT: Yes: Other Neck: Yes: WNL Cardiovascular: Yes: WNL Respiratory: Yes: WNL Gastrointestinal: Yes: WNL Genitourinary: Yes: Incontinence Musculoskeletal: Yes: Muscle Weakness Extremities: Yes: Other Edema: No Peripheral Pulses WNL: Yes Integumentary: Yes: WNL Wound/Incision: Yes: Clean/Dry Neurological: Yes: Facial Droop, Weakness ...Motor Strength: RUE, RLE Psychiatric: Yes: WNL Labs: CBC, BMP 09/02/17 03:00 09/02/17 03:00 INR, PTT INR 1.23 (0.82-1.09) H 09/01/17 19:10 Problem List - Problems (1) Cerebrovascular accident (CVA) Code(s): I63.9 - CEREBRAL INFARCTION, UNSPECIFIED Qualifiers: CVA mechanism: unspecified Qualified Code(s): I63.9 - Cerebral infarction, unspecified (2) Anemia Code(s): D64.9 - ANEMIA, UNSPECIFIED (3) CVA (cerebral infarction) Code(s): I63.9 - CEREBRAL INFARCTION, UNSPECIFIED Qualifiers: Cerebral infarction mechanism: unspecified mechanism Qualified Code(s): I63.9 - Cerebral infarction, unspecified (4) Cirrhosis of liver Code(s): K74.60 - UNSPECIFIED CIRRHOSIS OF LIVER (5) Diabetes Code(s): E11.9 - TYPE 2 DIABETES MELLITUS WITHOUT COMPLICATIONS (6) Hypertension Code(s): I10 - ESSENTIAL (PRIMARY) HYPERTENSION Assessment/Plan NEUROLOGY EVAL MRI/MRA BRAIN CAROTID ECHO CARDIOLOGY EVAL LIPID PANEL CHECK A1C DIETARY/SWALLOW EVAL OOB TO CHAIR PT EVAL SNF
[2017-09-02] MEDS: INSULIN (LEVEMIR) 100 UNITS/ML UNITS SQ SCH (21:36)
[2017-09-03] MEDS: INSULIN SLIDING SCALE (NOVOLOG) 1 VIAL SQ SCH ×4 (06:01→21:50)
[2017-09-03] MEDS: ENOXAPARIN NA (PORCINE) 40 MG/0.4 ML DISP.SYRIN SQ SCH (10:00)
[2017-09-03] MEDS: ASPIRIN 81 MG CHEWABLE TABLETS PO SCH (10:00)
--- NOTE | 2017-09-03 12:51 | CONSULT ---
Consult - text type - Consultation Consultation Note: Neurology HISTORY OF PRESENT ILLNESS: 77yo F with an extensive cardiac hx, and PMHx of alcoholic cirrhosis and 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 Symptoms began the morning of admission and in ER was concerned about slurred speech. SHe was not given tPA since she was out of the window. Head CT shows prior small L thalamic infarct but no new infarct. MRI brain, MRA head and neck, completed and did not show acute changes. No vascular malformations, no focal stenosis. Echo completed and normal LV systolic function. She does having underlying risk factors with HTN, CAD, DM. Does report taking medication daily. Reports feeling better this morning. Active Medications Albuterol Sulfate (Ventolin Hfa Inhaler -) 1 puff IH Q4H PRN PRN Reason: ASTHMA Aspirin (Asa -) 81 mg PO DAILY [facility] Last Admin: 09/03/17 10:00 Dose: 81 mg Enoxaparin Sodium (Lovenox -) 40 mg SQ DAILY [facility] Last Admin: 09/03/17 10:00 Dose: 40 mg Insulin Aspart (Novolog Vial Sliding Scale -) 1 vial SQ ACHS [facility] PRN Reason: Protocol Last Admin: 09/03/17 12:18 Dose: 2 units Insulin Detemir (Levemir Vial) 50 units SQ [facility] Last Admin: 09/02/17 21:36 Dose: 50 units Rosuvastatin Calcium (Crestor -) 20 mg PO HS [facility] Last Admin: 09/02/17 22:23 Dose: 20 mg PHYSICAL EXAMINATION Vital Signs Period Temp Pulse Resp BP Sys/Donovan Pulse Ox Last 24 Hr 98.0 F-98.3 F 64-80 16-24 139-174/63-98 98 GEN: AAOx3, NAD, Lying comfortably HEENT: PERRLA, EOmi, L sided facial droop with flattening of L nasolabial folds CV: S1, S2, RRR LUNG: Crackles on the R side, good air intake ABD: Soft, NT, ND MSK: 3/5 weakness in LUE and LLE. 5/5 on R side. NEURO: L sided facial droop, Diminished PP to R face, RUE, and RLE. 4+L sided, 4 - R sided. Finger to nose intact, gait deferred CT head reviewed MRI, MRA reviewed ASSESSMENT/PLAN: 77yo F with an extensive cardiac hx, and PMHx of alcoholic cirrhosis and 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 Symptoms began the morning of admission and in ER was concerned about slurred speech. SHe was not given tPA since she was out of the window. Head CT showed prior small L thalamic infarct but no new infarct. MRI brain, MRA head and neck, completed and did not show acute changes No malformations or significant stenosis Reports feeling better Echo reviewed and normal LV functions Cardiology follow up Monitor BP, can now treat and goal < 160/90 for now, < 130/80 as outpatient on ASA 81mg, leave the same for now Continue Crestor, goal LDL<70 Monitor glucose, maintain euglycemic range PT DVT PPX
--- NOTE | 2017-09-03 15:31 | PN ---
Progress Note, Physician Chief Complaint: AMS History of Present Illness: seen by neurology MRI/MRA unremarkable vitals stable - Current Medication List Current Medications: Active Medications Albuterol Sulfate (Ventolin Hfa Inhaler -) 1 puff IH Q4H PRN PRN Reason: ASTHMA Aspirin (Asa -) 81 mg PO DAILY [facility] Last Admin: 09/03/17 10:00 Dose: 81 mg Enoxaparin Sodium (Lovenox -) 40 mg SQ DAILY [facility] Last Admin: 09/03/17 10:00 Dose: 40 mg Insulin Aspart (Novolog Vial Sliding Scale -) 1 vial SQ ACHS [facility] PRN Reason: Protocol Last Admin: 09/03/17 12:18 Dose: 2 units Insulin Detemir (Levemir Vial) 50 units SQ HS [facility] Last Admin: 09/02/17 21:36 Dose: 50 units Rosuvastatin Calcium (Crestor -) 20 mg PO HS [facility] Last Admin: 09/02/17 22:23 Dose: 20 mg - Objective Vital Signs: Vital Signs Temperature 98.2 F 09/03/17 14:00 Pulse Rate 76 09/03/17 14:00 Respiratory Rate 22 09/03/17 14:00 Blood Pressure 152/86 09/03/17 14:00 O2 Sat by Pulse Oximetry (%) 98 09/02/17 20:00 Constitutional: Yes: Well Nourished, No Distress, Calm Cardiovascular: Yes: Regular Rate and Rhythm Respiratory: Yes: Regular Gastrointestinal: Yes: Normal Bowel Sounds, Soft Musculoskeletal: Yes: WNL Extremities: Yes: WNL Edema: No Peripheral Pulses WNL: Yes Neurological: Yes: Alert, Pre-Existing Deficit Psychiatric: Yes: Alert Labs: CBC, BMP 09/02/17 03:00 09/02/17 03:00 INR, PTT INR 1.23 (0.82-1.09) H 09/01/17 19:10 Problem List - Problems (1) Cerebrovascular accident (CVA) Assessment/Plan: -seen by neurology No acute changes on MRI/MRA Code(s): I63.9 - CEREBRAL INFARCTION, UNSPECIFIED Qualifiers: CVA mechanism: unspecified Qualified Code(s): I63.9 - Cerebral infarction, unspecified (2) Diabetes Assessment/Plan: A1c at 7.6 BGM Insulin Diabetic diet Code(s): E11.9 - TYPE 2 DIABETES MELLITUS WITHOUT COMPLICATIONS (3) Hypertension Assessment/Plan: Seen by Cardiology BP goal below 160/90 as inpatient and 130/80 as outpatient Code(s): I10 - ESSENTIAL (PRIMARY) HYPERTENSION Assessment/Plan see problem list DVt prophylaxis Physical therapy SNF
--- NOTE | 2017-09-03 18:24 | CON.CARD ---
Consult Consult Specialty:: Cardiology Referred by:: Flex Gerard NP Reason for Consultation:: Cerebrovascular disease - History of Present Illness Chief Complaint: Weakness History of Present Illness: 77 yo with hx dm, htn, hld, prior L thalamic CVA 4 years ago with residual R sided weakness, cad s/p remote pci in P.R., cirrhosis (etoh cirrhosis with varices s/p banding by dr park), breast ca 12/2014, presented to the ER with L sided facial droop and an increase in her R sided weakness. Symptoms began the morning of admission and in ER was concerned about slurred speech. SHe was not given tPA since she was out of the window. Head CT shows prior small L thalamic infarct but no new infarct. MRI brain, MRA head and neck, completed and did not show acute changes. No vascular malformations, no focal stenosis. Echo completed and normal LV systolic function. She does having underlying risk factors with HTN, CAD, DM. Does report taking medication daily. Reports symptoms improving, BP elevated, denies chest pain, dyspnea, palpitations. - History Source History Provided By: Medical Record Limitations to Obtaining History: Language Barrier - Past Medical History [employer]ICAL [employer]: Yes: CVA Cardio/Vascular: Yes: CAD (stent), HTN, Hyperlipdemia Pulmonary: Yes: Asthma Gastrointestinal: Yes: Ascites (h/o sbp intolerant to bactrim and levaquin), Esophageal Varices (h/o bleeding, banding and on nadalol), GI Bleed (variceal and duodenal ulcer), Peptic Ulcer Disease, Other (diabetic gastropareis, h/o hpylori rxed with pylera) Hepatobiliary: Yes: Cirrhosis Psych: Yes: Depression Endocrine: Yes: Diabetes Mellitus (historically poor control) - Past Surgical History Past Surgical History: Yes: Colonoscopy (multiple large polyps. poor prep in past.), Stent (cardiac), Tonsillectomy, Upper Endoscopy (h/o esoph varices. on nadalol. s/p banding. due to surveillance egd in 01/2015) - Alcohol/Substance Use Hx Alcohol Use: No - Smoking History Smoking history: Former smoker Have you smoked in the past 12 months: No Aproximately how many cigarettes per day: 0 If you are a former smoker, when did you quit?: over 30 years ago - Social History Usual Living Arrangement: Alone ADL: Independent Home Medications - Allergies Allergies/Adverse Reactions: Allergies Allergy/AdvReac Type Severity Reaction Status Date / Time levofloxacin [From Levaquin] Allergy Intermediate Rash Verified 09/01/17 20:34 Penicillins Allergy Rash Verified 09/01/17 20:34 sulfamethoxazole AdvReac Intermediate Verified 09/01/17 20:34 [From Bactrim] trimethoprim [From Bactrim] AdvReac Intermediate Verified 09/01/17 20:34 - Home Medications Home Medications: Ambulatory Orders Aspirin [ASA -] 81 mg PO DAILY 10/09/14 Atorvastatin Ca [Lipitor] 10 mg PO DAILY 10/09/14 Nadolol 40 mg PO DAILY 10/09/14 Albuterol Sulfate [Proventil HFA Inhaler -] 1 - 2 inh PO Q4H PRN 07/03/15 Ranitidine [Zantac -] 150 mg PO BID #60 tablet 12/17/15 Rifampin [Rifadin -] 600 mg PO MoWeFr@10 #24 capsule 12/17/15 Nitrofurantoin Monohyd/M-Cryst [Macrobid -] 100 mg PO BID #14 capsule 01/15/17 Insulin Detemir [Levemir Flextouch] 50 units SQ HS 09/02/17 Family Disease History - Family Disease History Family Disease History: Diabetes: Brother Review of Systems - Review of Systems Constitutional: reports: Weakness Neurological: reports: Change in Speech Vital Signs: Vital Signs Temperature 98.6 F 09/03/17 18:00 Pulse Rate 83 09/03/17 18:00 Respiratory Rate 19 09/03/17 18:00 Blood Pressure 170/80 09/03/17 18:00 O2 Sat by Pulse Oximetry (%) 98 09/02/17 20:00 Constitutional: Yes: No Distress, Calm, Thin Neck: Yes: Supple Respiratory: Yes: Regular, CTA Bilaterally Gastrointestinal: Yes: Normal Bowel Sounds, Soft Cardiovascular: Yes: Regular Rate and Rhythm JVD: No Carotid Bruit: No Heart Sounds: Yes: S1, S2 Murmur: Yes: Systolic Murmur, Grade 2 Edema: No - Other Data Labs, Other Data: CBC, BMP 09/02/17 03:00 09/02/17 03:00 INR, PTT INR 1.23 (0.82-1.09) H 09/01/17 19:10 SB @ 53 Ejection Fraction %: LVEF > or = 40 % Imaging - Results Chest X-ray: Report Reviewed (Interstitial changes) MRI: Report Reviewed (No acute strokes) Problem List - Problems (1) Cerebrovascular disease Code(s): I67.9 - CEREBROVASCULAR DISEASE, UNSPECIFIED (2) Hyperlipidemia Code(s): E78.5 - HYPERLIPIDEMIA, UNSPECIFIED Qualifiers: Hyperlipidemia type: pure hypercholesterolemia Qualified Code(s): E78.00 - Pure hypercholesterolemia, unspecified; E78.0 - Pure hypercholesterolemia (3) Coronary artery disease Code(s): I25.10 - ATHSCL HEART DISEASE OF [place] CORONARY ARTERY W/O ANG PCTRS Qualifiers: Coronary Disease-Associated Artery/Lesion type: [place] artery [place] vs. transplanted heart: [place] heart Associated angina: without angina Qualified Code(s): I25.10 - Atherosclerotic heart disease of [place] coronary artery without angina pectoris (4) S/P coronary artery stent placement Code(s): Z95.5 - PRESENCE OF CORONARY ANGIOPLASTY IMPLANT AND GRAFT (5) Chronic ischemic heart disease Code(s): I25.9 - CHRONIC ISCHEMIC HEART DISEASE, UNSPECIFIED (6) Cirrhosis of liver Code(s): K74.60 - UNSPECIFIED CIRRHOSIS OF LIVER Qualifiers: Hepatic cirrhosis type: alcoholic cirrhosis Ascites presence: without ascites Qualified Code(s): K70.30 - Alcoholic cirrhosis of liver without ascites (7) Esophageal varices without bleeding Code(s): I85.00 - ESOPHAGEAL VARICES WITHOUT BLEEDING (8) Hypertension Code(s): I10 - ESSENTIAL (PRIMARY) HYPERTENSION Assessment/Plan 09/02/2017 Echo: Normal LV size and fxn, mild MR, mod AR, TR, MRA neg carotid stenosis carotids 02/2015: no sig stenosis stress echo 05/2013: no ecg or echo changes of ischemia patent prior stent in lad and no sig residual dz on cath 10/2011 1. Cerebrovascular disease with old L thalamic lacunar infarct 2. Cirrhosis of liver referable to prior etoh abuse 3. HTN 4. CAD s/p s/p remote pci in P.R. (lad) 5. Hyperlipidemia 6. Chronic atypical cp P:1. Continue ASA 81 qd, Crestor 20 qhs, resume Nadolol 20 qd and Diovan 80 qd as hemodynamics tolerate 2. DVT prophylaxis 3. Thank you for consultative opportunity
[2017-09-03] MEDS ORDERED: PT OWN MED DRAWER 7, Y5N ONE (21:15)
[2017-09-03] MEDS: ROSUVASTATIN CA 20 MG TABLET (FP) PO SCH (21:47)
[2017-09-03] MEDS: INSULIN (LEVEMIR) 100 UNITS/ML UNITS SQ SCH (21:50)
[2017-09-04] MEDS: INSULIN SLIDING SCALE (NOVOLOG) 1 VIAL SQ SCH ×4 (06:30→21:49)
[2017-09-04] MEDS: ENOXAPARIN NA (PORCINE) 40 MG/0.4 ML DISP.SYRIN SQ SCH (09:38)
[2017-09-04] MEDS: ASPIRIN 81 MG CHEWABLE TABLETS PO SCH (09:38)
--- NOTE | 2017-09-04 10:05 | PN ---
Progress Note (short form) - Note Progress Note: S: no cp sob palps dizzy, mild cough o: Vital Signs Period Temp Pulse Resp BP Sys/Donovan Pulse Ox Last 24 Hr 98 F-98.6 F 76-87 16-22 136-171/57-86 nad no jvd rrr s1s2 2/6 sys murmur at lsb/apex ctab, nl eff aaox3 no le e/c/c abd nt nd pos bs no jaundice diaphoresis Current Medications Generic Name Dose Route Start Last Admin Trade Name Freq PRN Reason Stop Dose Admin Albuterol Sulfate 1 puff 09/01/17 21:31 Ventolin Hfa Inhaler - IH Q4H PRN ASTHMA Aspirin 81 mg 09/02/17 10:00 09/04/17 09:38 Asa - PO 81 mg DAILY [facility] Administration Enoxaparin Sodium 40 mg 09/02/17 10:00 09/04/17 09:38 Lovenox - SQ 40 mg DAILY [facility] Administration Insulin Aspart 1 vial 09/01/17 22:00 09/04/17 06:30 Novolog Vial Sliding Scale - SQ Not Given ACHS [facility] Protocol Insulin Detemir 50 units 09/02/17 22:00 09/03/17 21:50 Levemir Vial SQ 50 units HS [facility] Administration Rosuvastatin Calcium 20 mg 09/01/17 22:00 09/03/17 21:47 Crestor - PO 20 mg HS [facility] Administration CBC, BMP 09/02/17 03:00 09/02/17 03:00 EKG: sr, nl intervals, possible LVH. Non-specific T wave abnormalities, no ischemic changes echo 10/2014: nl lv/rv, no sig valve path echo 12/2015: nl lv/rv, mod-sev tr, rvsp 37 echo 08/2017: nl lv/rv, mild mr, mod tr, mod ar mibi 02/2017: nl mpi, nl lvef CT chest: consolidation in left lung apex, lingula and RUL, RLL. diffuse nodularity, LAD. carotids 02/2015: no sig stenosis stress echo 05/2013: no ecg or echo changes of ischemia tele: sr a/p: 77 yo with hx dm, htn, hld, cvas/tias, cad s/p remote pci in P.R., cirrhosis (etoh cirrhosis with varices s/p banding by dr park), breast ca 12/2014, here with tia. TIA with h/o CVA -h/o CVA x 2 in past, here now with TIA -cont ASA. Con't statin. bp control as mentioned below Cirrhosis of liver -sec to prior etoh abuse -no signs of bleeding on asa mod-sev tr - no signs right heart failure on exam - rv normal on echo and no sig pulm htn - monitor for now Hypertension -resume home nadolol 20 qd. also was on diovan 80. Chronic ischemic heart disease/cad s/p remote pci in P.R. (lad) -patent prior stent in lad and no sig residual dz on cath 10/2011 -no ischemia on recent mibi -no signs acs here -cont nadolol (on for portal htn) -cont asa, statin
[2017-09-04] MEDS: NADOLOL 20 MG TABLET (FP) PO SCH (11:41)
--- NOTE | 2017-09-04 12:10 | PN ---
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 Symptoms began the morning of admission and in ER was concerned about slurred speech. SHe was not given tPA since she was out of the window. Head CT shows prior small L thalamic infarct but no new infarct. MRI brain, MRA head and neck, completed and did not show acute changes. No vascular malformations, no focal stenosis. Echo completed and normal LV systolic function. She does having underlying risk factors with HTN, CAD, DM which are being addressd medically. Doing well and sitting in chair, no new neurologic complaints this AM. Being seen by Cardiology, note reviewed. Active Medications Albuterol Sulfate (Ventolin Hfa Inhaler -) 1 puff IH Q4H PRN PRN Reason: ASTHMA Aspirin (Asa -) 81 mg PO DAILY [facility] Last Admin: 09/04/17 09:38 Dose: 81 mg Enoxaparin Sodium (Lovenox -) 40 mg SQ DAILY [facility] Last Admin: 09/04/17 09:38 Dose: 40 mg Insulin Aspart (Novolog Vial Sliding Scale -) 1 vial SQ [facility] PRN Reason: Protocol Last Admin: 09/04/17 11:36 Dose: Not Given Insulin Detemir (Levemir Vial) 50 units SQ [facility] Last Admin: 09/03/17 21:50 Dose: 50 units Nadolol (Corgard -) 20 mg PO DAILY [facility] Last Admin: 09/04/17 11:41 Dose: 20 mg Rosuvastatin Calcium (Crestor -) 20 mg PO [facility] Last Admin: 09/03/17 21:47 Dose: 20 mg PHYSICAL EXAMINATION Active Medications Generic Name Dose Route Start Last Admin Trade Name Freq PRN Reason Stop Dose Admin Albuterol Sulfate 1 puff 09/01/17 21:31 Ventolin Hfa Inhaler - IH Q4H PRN ASTHMA Aspirin 81 mg 09/02/17 10:00 09/04/17 09:38 Asa - PO 81 mg DAILY [facility] Administration Enoxaparin Sodium 40 mg 09/02/17 10:00 09/04/17 09:38 Lovenox - SQ 40 mg DAILY [facility] Administration Insulin Aspart 1 vial 09/01/17 22:00 09/04/17 11:36 Novolog Vial Sliding Scale - SQ Not Given ACHS [facility] Protocol Insulin Detemir 50 units 09/02/17 22:00 09/03/17 21:50 Levemir Vial SQ 50 units HS [facility] Administration Nadolol 20 mg 09/04/17 10:15 09/04/17 11:41 Corgard - PO 20 mg DAILY [facility] Administration Rosuvastatin Calcium 20 mg 09/01/17 22:00 09/03/17 21:47 Crestor - PO 20 mg HS [facility] Administration GEN: AAOx3, NAD, Lying comfortably HEENT: PERRLA, EOmi, L sided facial droop with flattening of L nasolabial folds CV: S1, S2, RRR LUNG: Crackles on the R side, good air intake ABD: Soft, NT, ND MSK: 3/5 weakness in LUE and LLE. 5/5 on R side. NEURO: L sided facial droop, Diminished PP to R face, RUE, and RLE. 4+L sided, 4 - R sided. Finger to nose intact, gait deferred CT head reviewed MRI, MRA reviewed ASSESSMENT/PLAN: 77yo F with an extensive cardiac hx, and PMHx of alcoholic cirrhosis and 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 Symptoms began the morning of admission and in ER was concerned about slurred speech. SHe was not given tPA since she was out of the window. Head CT showed prior small L thalamic infarct but no new infarct. MRI brain, MRA head and neck, completed and did not show acute changes No malformations or significant stenosis Echo reviewed and normal LV functions Cardiology follow up Monitor BP, can now treat and goal < 160/90 for now, < 130/80 as outpatient on ASA 81mg, leave the same for now as no new infarct noted Continue Pratibha, currently LDL 72 Monitor glucose, maintain euglycemic range PT DVT PPX
--- NOTE | 2017-09-04 20:48 | PN ---
Progress Note, Physician Chief Complaint: AMS History of Present Illness: seen by neurology MRI/MRA unremarkable vitals stable - Current Medication List Current Medications: Active Medications Albuterol Sulfate (Ventolin Hfa Inhaler -) 1 puff IH Q4H PRN PRN Reason: ASTHMA Aspirin (Asa -) 81 mg PO DAILY [facility] Last Admin: 09/04/17 09:38 Dose: 81 mg Enoxaparin Sodium (Lovenox -) 40 mg SQ DAILY [facility] Last Admin: 09/04/17 09:38 Dose: 40 mg Insulin Aspart (Novolog Vial Sliding Scale -) 1 vial SQ ACHS [facility] PRN Reason: Protocol Last Admin: 09/04/17 16:26 Dose: 2 units Insulin Detemir (Levemir Vial) 50 units SQ [facility] Last Admin: 09/03/17 21:50 Dose: 50 units Nadolol (Corgard -) 20 mg PO DAILY [facility] Last Admin: 09/04/17 11:41 Dose: 20 mg Rosuvastatin Calcium (Crestor -) 20 mg PO [facility] Last Admin: 09/03/17 21:47 Dose: 20 mg - Objective Vital Signs: Vital Signs Temperature 98 F 09/04/17 16:25 Pulse Rate 77 09/04/17 20:00 Respiratory Rate 18 09/04/17 20:00 Blood Pressure 160/74 09/04/17 20:00 O2 Sat by Pulse Oximetry (%) 98 09/02/17 20:00 Constitutional: Yes: Well Nourished, No Distress, Calm Cardiovascular: Yes: Regular Rate and Rhythm Respiratory: Yes: Regular Gastrointestinal: Yes: Normal Bowel Sounds, Soft Musculoskeletal: Yes: Muscle Weakness Edema: No Peripheral Pulses WNL: Yes Neurological: Yes: Pre-Existing Deficit Labs: CBC, BMP 09/02/17 03:00 09/02/17 03:00 INR, PTT INR 1.23 (0.82-1.09) H 09/01/17 19:10 Problem List - Problems (1) Cerebrovascular accident (CVA) Assessment/Plan: -seen by neurology No acute changes on MRI/MRA Code(s): I63.9 - CEREBRAL INFARCTION, UNSPECIFIED Qualifiers: CVA mechanism: unspecified Qualified Code(s): I63.9 - Cerebral infarction, unspecified (2) Diabetes Assessment/Plan: A1c at 7.6 BGM Insulin Diabetic diet Code(s): E11.9 - TYPE 2 DIABETES MELLITUS WITHOUT COMPLICATIONS (3) Hypertension Assessment/Plan: Seen by Cardiology BP goal below 160/90 as inpatient and 130/80 as outpatient Started on Nadolol Monitor trend Code(s): I10 - ESSENTIAL (PRIMARY) HYPERTENSION Assessment/Plan see problem list DVt prophylaxis Physical therapy SNF
[2017-09-04] MEDS: ROSUVASTATIN CA 20 MG TABLET (FP) PO SCH (21:49)
[2017-09-04] MEDS: INSULIN (LEVEMIR) 100 UNITS/ML UNITS SQ SCH (21:50)
[2017-09-05 04:06] VITALS: TEMP 98.4
[2017-09-05] MEDS: INSULIN SLIDING SCALE (NOVOLOG) 1 VIAL SQ SCH ×2 (06:09→12:18)
[2017-09-05 08:04] VITALS: BP 119/49; PULSE 62
--- NOTE | 2017-09-05 09:38 | PN ---
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 Symptoms began the morning of admission and in ER was concerned about slurred speech. SHe was not given tPA since she was out of the window. Head CT shows prior small L thalamic infarct but no new infarct. MRI brain, MRA head and neck, completed and did not show acute changes. No vascular malformations, no focal stenosis. Echo completed and normal LV systolic function. She does having underlying risk factors with HTN, CAD, DM which are being addressd medically. Doing well and sitting in chair, no new neurologic complaints this AM. Doing well, sitting in chair at bedside. Active Medications Albuterol Sulfate (Ventolin Hfa Inhaler -) 1 puff IH Q4H PRN PRN Reason: ASTHMA Aspirin (Asa -) 81 mg PO DAILY [facility] Last Admin: 09/04/17 09:38 Dose: 81 mg Enoxaparin Sodium (Lovenox -) 40 mg SQ DAILY [facility] Last Admin: 09/04/17 09:38 Dose: 40 mg Insulin Aspart (Novolog Vial Sliding Scale -) 1 vial SQ [facility] PRN Reason: Protocol Last Admin: 09/05/17 06:09 Dose: Not Given Insulin Detemir (Levemir Vial) 50 units SQ [facility] Last Admin: 09/04/17 21:50 Dose: 50 units Nadolol (Corgard -) 20 mg PO DAILY [facility] Last Admin: 09/04/17 11:41 Dose: 20 mg Rosuvastatin Calcium (Crestor -) 20 mg PO [facility] Last Admin: 09/04/17 21:49 Dose: 20 mg PHYSICAL EXAMINATION Vital Signs Temperature 98.4 F 09/05/17 04:00 Pulse Rate 62 09/05/17 08:00 Respiratory Rate 21 09/05/17 08:04 Blood Pressure 119/49 09/05/17 08:00 O2 Sat by Pulse Oximetry (%) 98 09/02/17 20:00 GEN: AAOx3, NAD, Lying comfortably HEENT: PERRLA, EOmi, L sided facial droop with flattening of L nasolabial folds CV: S1, S2, RRR LUNG: Crackles on the R side, good air intake ABD: Soft, NT, ND MSK: 3/5 weakness in LUE and LLE. 5/5 on R side. NEURO: L sided facial droop, Diminished PP to R face, RUE, and RLE. 5-L sided, 5 - R sided. Finger to nose intact, gait deferred CBCD WBC 5.0 K/mm3 (4.0-10.0) 09/02/17 03:00 RBC 4.49 M/mm3 (3.60-5.2) 09/02/17 03:00 Hgb 14.2 GM/dL (10.7-15.3) 09/02/17 03:00 Hct 40.0 % (32.4-45.2) 09/02/17 03:00 MCV 89.2 fl (80-96) 09/02/17 03:00 MCHC 35.6 g/dl (32.0-36.0) 09/02/17 03:00 RDW 14.2 % (11.6-15.6) 09/02/17 03:00 Plt Count 95 K/MM3 (134-434) L 09/02/17 03:00 MPV 8.9 fl (7.5-11.1) 09/02/17 03:00 CMP Sodium 144 mmol/L (136-145) 09/02/17 03:00 Potassium 3.6 mmol/L (3.5-5.1) 09/02/17 03:00 Chloride 112 mmol/L (98-107) H 09/02/17 03:00 Carbon Dioxide 28 mmol/L (21-32) 09/02/17 03:00 Anion Gap 4 (8-16) L 09/02/17 03:00 BUN 9 mg/dL (7-18) 09/02/17 03:00 Creatinine 0.6 mg/dL (0.55-1.02) 09/02/17 03:00 Creat Clearance w eGFR > 60 (>60) 09/02/17 03:00 Calcium 8.1 mg/dL (8.5-10.1) L 09/02/17 03:00 Total Bilirubin 2.1 mg/dL (0.2-1.0) H 09/02/17 03:00 AST 65 U/L (15-37) H 09/02/17 03:00 ALT 38 U/L (12-78) 09/02/17 03:00 Alkaline Phosphatase 123 U/L (45-117) H 09/02/17 03:00 Total Protein 6.6 g/dl (6.4-8.2) 09/02/17 03:00 Albumin 2.7 g/dl (3.4-5.0) L 09/02/17 03:00 CT head reviewed MRI, MRA reviewed ASSESSMENT/PLAN: 77yo F with an extensive cardiac hx, and PMHx of alcoholic cirrhosis and 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 Symptoms began the morning of admission and in ER was concerned about slurred speech. SHe was not given tPA since she was out of the window. Head CT showed prior small L thalamic infarct but no new infarct. MRI brain, MRA head and neck, completed and did not show acute changes No malformations or significant stenosis Echo reviewed and normal LV functions Cardiology follow up Monitor BP, < 130/80 as outpatient on ASA 81mg, leave the same for now as no new infarct noted Continue Crestor, currently LDL 72 Monitor glucose, maintain euglycemic range PT DVT PPX Neurologically appears stable Consider discharge planning
[2017-09-05] MEDS: ENOXAPARIN NA (PORCINE) 40 MG/0.4 ML DISP.SYRIN SQ SCH (10:27)
[2017-09-05] MEDS: ASPIRIN 81 MG CHEWABLE TABLETS PO SCH (10:27)
[2017-09-05] MEDS ORDERED: PT OWN MED DRAWER 7, Y5N ONE (11:47)
[2017-09-05] MEDS ORDERED: HEMOQUE TEST 1 EACH EACH ONE (12:05)
--- NOTE | 2017-09-05 12:36 | PN ---
Progress Note, Physician Chief Complaint: cva History of Present Illness: denies cp, sob, palpit, syncope - Current Medication List Current Medications: Active Medications Albuterol Sulfate (Ventolin Hfa Inhaler -) 1 puff IH Q4H PRN PRN Reason: ASTHMA Aspirin (Asa -) 81 mg PO DAILY [facility] Last Admin: 09/05/17 10:27 Dose: 81 mg Enoxaparin Sodium (Lovenox -) 40 mg SQ DAILY [facility] Last Admin: 09/05/17 10:27 Dose: 40 mg Insulin Aspart (Novolog Vial Sliding Scale -) 1 vial SQ ACHS [facility] PRN Reason: Protocol Last Admin: 09/05/17 12:18 Dose: 2 units Insulin Detemir (Levemir Vial) 50 units SQ HS [facility] Last Admin: 09/04/17 21:50 Dose: 50 units Nadolol (Corgard -) 20 mg PO DAILY [facility] Last Admin: 09/04/17 11:41 Dose: 20 mg Rosuvastatin Calcium (Crestor -) 20 mg PO HS [facility] Last Admin: 09/04/17 21:49 Dose: 20 mg - Objective Vital Signs: Vital Signs Temperature 98.4 F 09/05/17 04:00 Pulse Rate 62 09/05/17 08:00 Respiratory Rate 21 09/05/17 08:04 Blood Pressure 119/49 09/05/17 08:00 O2 Sat by Pulse Oximetry (%) 98 09/02/17 20:00 Constitutional: Yes: Well Nourished, No Distress, Calm Cardiovascular: Yes: Regular Rate and Rhythm, Murmur (3/6 early COLIN rusb), S1, S2. No: Gallop Respiratory: Yes: Regular, Rales (L base). No: Accessory Muscle Use, Wheezes Extremities: No: Cold Edema: No Neurological: Yes: Alert. No: Seizure Psychiatric: No: Agitated Labs: CBC, BMP 09/02/17 03:00 09/02/17 03:00 INR, PTT INR 1.23 (0.82-1.09) H 09/01/17 19:10 Assessment/Plan EKG: sr, nl intervals, possible LVH. Non-specific T wave abnormalities, no ischemic changes echo 12/2015: nl lv/rv, mod-sev tr, rvsp 37 echo 08/2017: nl lv/rv, mild mr, mod tr, mod ar mibi 02/2017: nl mpi, nl lvef CT chest: consolidation in left lung apex, lingula and RUL, RLL. diffuse nodularity, LAD. tele: NSR a/p: 77 yo with hx dm, htn, hld, cvas/tias, cad s/p remote pci in P.R., cirrhosis (etoh cirrhosis with varices s/p banding by dr park), breast ca 12/2014, here with tia. TIA with h/o CVA -h/o CVA x 2 in past, here now with TIA -cont ASA. Con't statin. bp control as mentioned below -remainder of plan per neuro Cirrhosis of liver -sec to prior etoh abuse -no signs of bleeding on asa mod-sev tr - no signs right heart failure on exam - rv normal on echo and no sig pulm htn - monitor clinically Hypertension -resume home nadolol 20 qd. also was on diovan 80. -hasn't followed up with us (patricia) in office in long time Chronic ischemic heart disease/cad s/p remote pci in P.R. (lad) -patent prior stent in lad and no sig residual dz on cath 10/2011 -no ischemia on recent mibi -no signs acs here -cont nadolol (on for portal htn) -cont asa, statin (previously cleared for statin by GI/liver, LFTs had been stable as outpt, remain stable here)
--- NOTE | 2017-09-05 13:05 | DS ---
Physical Examination Vital Signs: Vital Signs Temperature 98.4 F 09/05/17 04:00 Pulse Rate 62 09/05/17 08:00 Respiratory Rate 21 09/05/17 08:04 Blood Pressure 119/49 09/05/17 08:00 O2 Sat by Pulse Oximetry (%) 98 09/02/17 20:00 Constitutional: Yes: Mild Distress Eyes: Yes: WNL HENT: Yes: Other Neck: Yes: WNL Cardiovascular: Yes: WNL Respiratory: Yes: WNL Gastrointestinal: Yes: WNL Renal/: Yes: Incontinence Musculoskeletal: Yes: Muscle Weakness Edema: No Peripheral Pulses WNL: Yes Integumentary: Yes: WNL Wound/Incision: Yes: Clean/Dry Neurological: Yes: Facial Droop, Unsteady Gait, Weakness ...Motor Strength: LUE, LLE, RUE, RLE Psychiatric: Yes: Other Labs: CBC, BMP 09/02/17 03:00 09/02/17 03:00 Discharge Summary Reason For Visit: CEREBROVASCULAR ACCIDENT (CVA) Current Active Problems Cerebrovascular accident (CVA) (Acute) Cerebrovascular disease (Acute) Coronary artery disease (Acute) Hyperlipidemia (Acute) S/P coronary artery stent placement (Acute) Procedures: Principal: MRI BRAIN Hospital Course: ACUTE CVA WITH HEMEPARESIS RIGHT SIDE WITH FACIAL DROOP, TREATED IN ICU WITH CARDIO/NEURO WORKUP, WILL NEED AGGRESSIVE PHYSICAL THERAPY AND LIPID LOWERING STATIN THERAPY/ASA. Condition: Stable - Instructions Diet, Activity, Other Instructions: LOW FAT Disposition: RETIREMENT FACILITY - Home Medications Comprehensive Discharge Medication List: Ambulatory Orders Aspirin [ASA -] 81 mg PO DAILY 10/09/14 Atorvastatin Ca [Lipitor] 10 mg PO DAILY 10/09/14 Nadolol 40 mg PO DAILY 10/09/14 Albuterol Sulfate [Proventil HFA Inhaler -] 1 - 2 inh PO Q4H PRN 07/03/15 Ranitidine [Zantac -] 150 mg PO BID #60 tablet 12/17/15 Rifampin [Rifadin -] 600 mg PO MoWeFr@10 #24 capsule 12/17/15 Nitrofurantoin Monohyd/M-Cryst [Macrobid -] 100 mg PO BID #14 capsule 01/15/17 Insulin Detemir [Levemir Flextouch] 50 units SQ HS 09/02/17 Enoxaparin [Lovenox -] 40 mg SQ DAILY disp.[facility]yrin 09/05/17 Insulin Sliding Scale [Novolog Vial Sliding Scale -] 1 vial SQ ACHS units 09/05 Nadolol [Corgard -] 20 mg PO DAILY tablet 09/05/17 Rosuvastatin [Crestor -] 20 mg PO HS tablet 09/05/17
[2017-09-05] MEDS: NADOLOL 20 MG TABLET (FP) PO SCH (14:22)
== END 2017-09-05 13:40 | DRG 65 ==
LOC: JER 18:44 → JERBED 20:23 → J2W 09-02 02:01
PROVIDERS: ADMIT Internal Medicine; ATTEND Family Medicine
DX: I63.9 Cerebral infarction, unspecified (principal); I69.351 Hemiplegia and hemiparesis following cerebral infarction affecting right dominant side; K70.30 Alcoholic cirrhosis of liver without ascites; D69.6 Thrombocytopenia, unspecified; I25.10 Atherosclerotic heart disease of native coronary artery without angina pectoris; E11.9 Type 2 diabetes mellitus without complications; I10 Essential (primary) hypertension; D64.9 Anemia, unspecified; E78.00 Pure hypercholesterolemia, unspecified; C50.912 Malignant neoplasm of unspecified site of left female breast; R29.703 NIHSS score 3; Z87.891 Personal history of nicotine dependence; Z88.0 Allergy status to penicillin; J45.909 Unspecified asthma, uncomplicated; I34.0 Nonrheumatic mitral (valve) insufficiency; I36.1 Nonrheumatic tricuspid (valve) insufficiency; Z95.5 Presence of coronary angioplasty implant and graft
CPT/HCPCS: 36415; 70450-TC; 70544-TC; 70547-TC; 70551-TC; 71045-TC-FY; 80053; 81003; 81015; 82465; 82550; 82607; 82962; 83036; 83718; 83721; 83735; 84100; 84443; 84478; 84484; 85025; 85610; 86850; 86900; 86901; 93005; 93010; 93306-TC; 97116-GP; 99285-25; J7030

== ENCOUNTER 2018-01-24 15:47 | Inpatient (IN) | payer OTHER ==
[2018-01-24] MEDS ORDERED: ACETAMINOPHEN 1000 MG/100 ML VIAL (NON FORMULARY) IVPB ONE (16:03)
[2018-01-24] MEDS ORDERED: ALBUTEROL SO4 2.5/IPRATROPIUM 0.5 INH SOL 3 ML VIAL.NEB. NEB ONE ×3 (16:03→21:17)
[2018-01-24] MEDS ORDERED: SODIUM CHLORIDE 1,000 ML IV STA (16:03)
[2018-01-24] MEDS ORDERED: ACETAMINOPHEN INJECTION 100 ML IVPB ONE (16:36)
--- NOTE | 2018-01-24 16:39 | PDOC ---
History of Present Illness - General Chief Complaint: Shortness of Breath Stated Complaint: COUGH, FLUID IN LUNGS Time Seen by Provider: 01/24/18 15:52 History Source: Patient Exam Limitations: No Limitations - History of Present Illness Initial Comments: 01/24/18 16:36 Patient is a 77F with history of CAD w/ stents, DM, HTN, anemia, GI bleed, CVA, hyponatremia, HLD, breast Ca here today complaining of two days of fevers, chills, chest pain with cough, and shortness of breath. She was brought in today by her son because the patient was having difficulty breathing. Patient denies abdominal pain, dysuria. Denies leg swelling. Past History - Past Medical History Allergies/Adverse Reactions: Allergies Allergy/AdvReac Type Severity Reaction Status Date / Time levofloxacin [From Levaquin] Allergy Intermediate Rash Verified 09/01/17 20:34 Penicillins Allergy Rash Verified 09/01/17 20:34 sulfamethoxazole AdvReac Intermediate Verified 09/01/17 20:34 [From Bactrim] trimethoprim [From Bactrim] AdvReac Intermediate Verified 09/01/17 20:34 Home Medications: Ambulatory Orders Aspirin [ASA -] 81 mg PO DAILY 10/09/14 Albuterol Sulfate [Proventil HFA Inhaler -] 1 - 2 inh PO Q4H PRN 07/03/15 Insulin Detemir [Levemir Flextouch] 50 units SQ HS 09/02/17 Nadolol [Corgard -] 20 mg PO DAILY tablet 09/05/17 Albuterol 0.083% Nebulizer Elizabeth [Ventolin 0.083% Nebulizer Soln -] 1 amp NEB PRN PRN 01/24/18 Amlodipine Besylate [Norvasc -] 5 mg PO DAILY 01/24/18 Escitalopram Oxalate [Lexapro -] 10 mg PO DAILY 01/24/18 Fludrocortisone Acetate [Florinef -] 0.1 mg PO DAILY 01/24/18 Fluticasone Furoate [Arnuity Ellipta] 100 mcg IH DAILY 01/24/18 Insulin Lispro [Humalog] 100 unit SQ [facility] 01/24/18 Losartan Potassium [Cozaar -] 25 mg PO DAILY 01/24/18 Pantoprazole Sodium [Protonix] 40 mg PO DAILY 01/24/18 Rosuvastatin [Crestor -] 20 mg PO DAILY 01/24/18 Umeclidinium [place] [Incruse Ellipta] 62.5 mcg IH DAILY 01/24/18 Anemia: Yes Asthma: Yes Cancer: Yes (LEFT BREAST) Cardiac Disorders: Yes CVA: Yes (08/2011; 06/2013, right sided weakness) COPD: No CHF: No Dementia: No Diabetes: Yes GI Disorders: Yes (HX. ULCERS,ESOPHAGEAL VARICES) Disorders: No HTN: Yes Hypercholesterolemia: Yes Liver Disease: Yes (ALCOHOL CIRRHOSIS??-ASCITES) Psychiatric Problems: Yes (ANXIETY.) Seizures: No Thyroid Disease: No - Surgical History Abdominal Surgery: No Appendectomy: No Cardiac Surgery: Yes (STENT X 1 in LAD 1978) Cholecystectomy: No Lung Surgery: No Neurologic Surgery: No Orthopedic Surgery: No - Immunization History Immunization Up to Date: Yes - Suicide/Smoking/Psychosocial Hx Smoking Status: Yes Smoking History: Former smoker Years of Tobacco Use: 5 Have you smoked in the past 12 months: No Number of Cigarettes Smoked Daily: 0 If you are a former smoker, when did you quit?: over 30 years ago Information on smoking cessation initiated: No Hx Alcohol Use: No Drug/Substance Use Hx: No Substance Use Type: None Hx Substance Use Treatment: Yes (ALCOHOL) Review of Systems - Review of Systems Comments:: 01/24/18 16:38 GENERAL/CONSTITUTIONAL: +fever +chills. No weakness. HEAD, EYES, EARS, NOSE AND THROAT: No change in vision. No sore throat. CARDIOVASCULAR: +chest pain +shortness of breath RESPIRATORY: +cough, +wheezing, No hemoptysis. GASTROINTESTINAL: No nausea, vomiting, diarrhea or constipation. GENITOURINARY: No dysuria, frequency, or change in urination. MUSCULOSKELETAL: No joint or muscle swelling or pain. No neck or back pain. SKIN: No rash NEUROLOGIC: No headache, vertigo, loss of consciousness, or change in strength/ sensation. ENDOCRINE: No increased thirst. No abnormal weight change HEMATOLOGIC/LYMPHATIC: No anemia, easy bleeding, or history of blood clots. ALLERGIC/IMMUNOLOGIC: No hives or skin allergy. *Physical Exam - Vital Signs Last Vital Signs Temp Pulse Resp BP Pulse Ox 99.0 F 92 H 20 134/117 97 01/24/18 16:11 01/24/18 16:11 01/24/18 16:11 01/24/18 16:11 01/24/18 16:11 - Physical Exam Comments: 01/24/18 16:39 GENERAL: Awake, alert, and fully oriented, in no acute distress, warm to touch HEAD: No signs of trauma, normocephalic, atraumatic EYES: PERRLA, EOMI, sclera anicteric, conjunctiva clear ENT: Auricles normal inspection, hearing grossly normal, nares patent, oropharynx clear without exudates. Moist mucosa NECK: Normal ROM, supple, no lymphadenopathy, JVD, or masses LUNGS: Coughing, small breaths in, wheezing, decreased breath sounds on the right HEART: Tachycardic and normal rhythm, normal S1 and S2, no murmurs, rubs or gallops, peripheral pulses normal and equal bilaterally. ABDOMEN: Soft, nontender, normoactive bowel sounds. No guarding, no rebound. No masses EXTREMITIES: Normal inspection, Normal range of motion, no edema. No clubbing or cyanosis. NEUROLOGICAL: Cranial nerves II through XII grossly intact. Normal speech, no focal sensorimotor deficits SKIN: Warm, Dry, normal turgor, no rashes or lesions noted. ED Treatment Course - LABORATORY CBC & Chemistry Diagram: 01/24/18 16:30 01/24/18 16:30 - RADIOLOGY Radiology Studies Ordered: Category Date Time Status CHEST X-RAY PORTABLE* [RAD] Stat Radiology 01/24/18 16:02 Ordered Medical Decision Making - Medical Decision Making 01/24/18 16:43 Patient is 77F with history of CAD s/p stenting, HLD, CVA DM, HTN, anemia, hyponatremia here today with cough, tactile fever and shortness of breath. Vital signs notable for HR in 100s initially, spO2 of 88% on room air initially , coughing. Given duoneb, septic workup initiated. CXR shows chronic lung disease, questionable infiltrate in right side. Given clinical picture will treat for pneumonia. Patient refusing rectal temp. 01/24/18 16:53 Patient allergic to PCN, levofloxacin, bactrim. Chart reviewed, has tolerated ceftriaxone in the past. Will treat with ceftriaxone and azithromycin. 01/24/18 17:59 ?Congestive changes reported on cxr, will hydrate gently with fluids given patients lactic acid of 2.1. CBC normal. VBG reassuring. Trop/CMP pending. 01/24/18 18:06 Trop undetectable, CMP shows mildly elevated bilirubin at baseline, otherwise normal. Page out for admission. *DC/Admit/Observation/Transfer Diagnosis at time of Disposition: Pneumonia - Discharge Dispostion Condition at time of disposition: Stable Decision to Admit order: Yes - Referrals Referrals: Kraig Matos MD [Primary Care Provider] - - Patient Instructions - Post Discharge Activity
[2018-01-24] MEDS ORDERED: AZITHROMYCIN IVPB 500 MG in DEXTROSE 5%-WATER - 250 ML IVPB ONE (16:52)
[2018-01-24] MEDS ORDERED: CEFTRIAXONE 1,000 MG in DEXTROSE 5%-WATER - 50 ML IVPB ONE (16:52)
[2018-01-24 17:00] LABS: BASO % 0.4 % (0-2.0); EOS % 3.9 % (0-4.5); HEMATOCRIT 40.4 % (32.4-45.2); HEMOGLOBIN 13.9 GM/dL (10.7-15.3); LYMPH % 22.6 % (8-40); MCH 31.2 pg (25.7-33.7); MCHC 34.5 g/dl (32.0-36.0); MEAN CELL VOLUME 90.4 fl (80-96); MEAN PLT VOLUME 8.4 fl (7.5-11.1); NEUT % 65.1 % (42.8-82.8); PLATELET COUNT 139 K/MM3 (134-434); RBC 4.47 M/mm3 (3.60-5.2); RDW 14.3 % (11.6-15.6)
[2018-01-24 17:02] LABS: VENOUS PH 7.43 (7.32-7.42); VENOUS PO2 43.9 mmHg (28-48)
[2018-01-24] MEDS ORDERED: CEFTRIAXONE 1 GM/50 ML BAG ONE (17:10)
[2018-01-24] MEDS ORDERED: AZITHROMYCIN IVPB 250 ML IVPB ONE (17:10)
[2018-01-24 17:12] LABS: INR 1.27 (0.83-1.09); PROTHROMBIN TIME (PATIENT) 14.3 SEC (9.7-13.0)
[2018-01-24 17:15] LABS: ACTIVATED PTT 33.7 SECONDS (25.2-36.5)
[2018-01-24 17:34] LABS: URINE APPEARANCE CLEAR; URINE BILIRUBIN NEGATIVE (<2.0 mg/dL); URINE COLOR LTYELLOW; URINE GLUCOSE (UA) NEGATIVE (NEGATIVE); URINE KETONE NEGATIVE (NEGATIVE); URINE LEUK ESTERASE NEGATIVE (NEGATIVE); URINE NITRITE NEGATIVE (NEGATIVE); URINE PROTEIN NEGATIVE (NEGATIVE)
[2018-01-24 17:57] LABS: ALBUMIN 3.2 g/dl (3.4-5.0); ANION GAP 8 MMOL/L (8-16); BLOOD UREA NITROGEN 5 mg/dL (7-18); CALCIUM 8.8 mg/dL (8.5-10.1); CHLORIDE 104 mmol/L (98-107); CO2 25 mmol/L (21-32); CREATININE 0.8 mg/dL (0.55-1.3); GLUCOSE,RANDOM 186 mg/dL (74-106); POTASSIUM 3.5 mmol/L (3.5-5.1); SGOT/AST 72 U/L (15-37); SGPT/ALT 41 U/L (13-61); SODIUM 137 mmol/L (136-145); TOT PROT 7.7 g/dl (6.4-8.2)
[2018-01-24 17:58] LABS: ALK PHOS 146 U/L (45-117)
--- NOTE | 2018-01-24 18:27 | PDOC ---
Attending Attestation - Resident Resident Name: AmarilisLokesh - ED Attending Attestation I have performed the following: I have examined & evaluated the patient, The case was reviewed & discussed with the resident, I agree w/resident's findings & plan, Exceptions are as noted - HPI HPI: 01/24/18 18:26 77 F with h/o CAD w/ stents, DM, HTN, anemia, GI bleed, CVA, hyponatremia, HLD, breast Ca presenting to ED with cough, fever, and SOB. Mild chest pain with coughing. No leg swelling. No recent travel. No known sick contacts. - Physicial Exam PE: 01/24/18 18:28 "GENERAL: Awake, alert, and fully oriented, in no acute distress. HEAD: No signs of trauma EYES: PERRLA, EOMI, sclera anicteric, conjunctiva clear ENT: Auricles normal inspection, hearing grossly normal, nares patent, oropharynx clear without exudates. Moist mucosa NECK: Nontender, no stepoffs, Normal ROM, supple, no lymphadenopathy, JVD, or masses LUNGS: + bilateral expiratory wheezes + bibasilar rales HEART: Regular rate and rhythm, normal S1 and S2, no murmurs, rubs or gallops ABDOMEN: Soft, nontender, normoactive bowel sounds. No guarding, no rebound. No masses EXTREMITIES: Normal range of motion, no edema. No clubbing or cyanosis. No cords, erythema, or tenderness NEUROLOGICAL: Cranial nerves II through XII intact. 5/5 strength and sensation in all extremities, Normal speech, normal gait, normal cerebellar function SKIN: Warm, Dry, normal turgor, no rashes or lesions noted. - Critical Care Time Total Critical Care Time: 60 Critical Care Statement: The care of this patient involved high complexity decision making to prevent further life threatening deterioration of the patient 's condition and/or to evaluate & treat vital organ system(s) failure or risk of failure. - Medical Decision Making 01/24/18 18:28 77 F with cough, CP, SOB, and fevers. Exam notable for hypoxia, with rales and wheezes on exam. Will evaluate for CHF. ALso consider COPD/asthma flare. Will also r/o PNA. - Labs, trop, BNP - CXR - Nebs - Abx - Admit
--- NOTE | 2018-01-24 19:42 | HP ---
Admitting History and Physical - Primary Care Physician PCP: Shawna Cornell - Admission Chief Complaint: Fever, SOB, CP with cough History of Present Illness: 77 y/o woman PMHx of: CAD with stent(1978, LAD), HTN, HLD, DM, Anemia, GI Bleed , Alcohol Cirrhosis, CVA, Hyponatremia, L- Breast Ca, Anxiety. Who presents to the ED with fever, chills, SOB, CP with cough x 2 days. 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: CVA Cardiovascular: Yes: CAD (stent), HTN, Hyperlipdemia Pulmonary: Yes: Asthma Gastrointestinal: Yes: Ascites (h/o sbp intolerant to bactrim and levaquin), Esophageal Varices (h/o bleeding, banding and on nadalol), GI Bleed (variceal and duodenal ulcer), Peptic Ulcer Disease, Other (diabetic gastropareis, h/o hpylori rxed with pylera) Hepatobiliary: Yes: Cirrhosis Heme/Onc: Yes: Cancer (breast s/p lumpectomy 12/21), Thrombocytopenia (due to cirrhosis) Psych: Yes: Depression Endocrine: Yes: Diabetes Mellitus (historically poor control) - Past Surgical History Past Surgical History: Yes: Colonoscopy (multiple large polyps. poor prep in past.), Stent (cardiac), Tonsillectomy, Upper Endoscopy (h/o esoph varices. on nadalol. s/p banding. due to surveillance egd in 01/2015) - Smoking History Smoking history: Former smoker Have you smoked in the past 12 months: No Aproximately how many cigarettes per day: 0 If you are a former smoker, when did you quit?: over 30 years ago - Alcohol/Substance Use Hx Alcohol Use: No History of Substance Use: reports: None - Social History Usual Living Arrangement: Yes: With Child ADL: Independent History of Recent Travel: No Home Medications - Allergies Allergies/Adverse Reactions: Allergies Allergy/AdvReac Type Severity Reaction Status Date / Time levofloxacin [From Levaquin] Allergy Intermediate Rash Verified 09/01/17 20:34 Penicillins Allergy Rash Verified 09/01/17 20:34 sulfamethoxazole AdvReac Intermediate Verified 09/01/17 20:34 [From Bactrim] trimethoprim [From Bactrim] AdvReac Intermediate Verified 09/01/17 20:34 - Home Medications Home Medications: Ambulatory Orders Aspirin [ASA -] 81 mg PO DAILY 10/09/14 Albuterol Sulfate [Proventil HFA Inhaler -] 1 - 2 inh PO Q4H PRN 07/03/15 Insulin Detemir [Levemir Flextouch] 50 units SQ HS 09/02/17 Nadolol [Corgard -] 20 mg PO DAILY tablet 09/05/17 Albuterol 0.083% Nebulizer Elizabeth [Ventolin 0.083% Nebulizer Soln -] 1 amp NEB PRN PRN 01/24/18 Amlodipine Besylate [Norvasc -] 5 mg PO DAILY 01/24/18 Escitalopram Oxalate [Lexapro -] 10 mg PO DAILY 01/24/18 Fludrocortisone Acetate [Florinef -] 0.1 mg PO DAILY 01/24/18 Fluticasone Furoate [Arnuity Ellipta] 100 mcg IH DAILY 01/24/18 Insulin Lispro [Humalog] 100 unit SQ ASDIR 01/24/18 Losartan Potassium [Cozaar -] 25 mg PO DAILY 01/24/18 Pantoprazole Sodium [Protonix] 40 mg PO DAILY 01/24/18 Rosuvastatin [Crestor -] 20 mg PO DAILY 01/24/18 Umeclidinium [place] [Incruse Ellipta] 62.5 mcg IH DAILY 01/24/18 Family Disease History - Family Disease History Family Disease History: Diabetes: Brother Review of Systems - Review of Systems Constitutional: reports: Chills, Fever Eyes: reports: No Symptoms HENT: reports: No Symptoms Neck: reports: No Symptoms Cardiovascular: reports: Chest Pain, Shortness of Breath Respiratory: reports: Cough, SOB Gastrointestinal: reports: No Symptoms Genitourinary: reports: No Symptoms Breasts: reports: No Symptoms Reported Musculoskeletal: reports: No Symptoms Integumentary: reports: No Symptoms Neurological: reports: No Symptoms Endocrine: reports: No Symptoms Hematology/Lymphatic: reports: No Symptoms Psychiatric: reports: No Symptoms Physical Examination Vital Signs: Vital Signs Temperature 99.0 F 01/24/18 16:11 Pulse Rate 80 01/24/18 18:09 Respiratory Rate 16 01/24/18 18:09 Blood Pressure 116/68 01/24/18 18:09 O2 Sat by Pulse Oximetry (%) 98 01/24/18 18:09 Constitutional: Yes: Well Nourished, No Distress, Calm Eyes: Yes: WNL, Conjunctiva Clear, EOM Intact, PERRL HENT: Yes: WNL, Atraumatic, Normocephalic Neck: Yes: WNL, Supple, Trachea Midline Cardiovascular: Yes: WNL, Regular Rate and Rhythm Respiratory: Yes: On Nasal O2, Rales, Rhonchi, Wheezes Gastrointestinal: Yes: WNL, Normal Bowel Sounds, Soft, Abdomen, Obese Renal/: Yes: WNL Musculoskeletal: Yes: WNL Extremities: Yes: WNL Edema: No Peripheral Pulses WNL: Yes Neurological: Yes: WNL, Alert, Oriented, Cran Nerves II-XII Intact ...Motor Strength: WNL Psychiatric: Yes: WNL, Alert, Oriented Labs: CBC, BMP 01/24/18 16:30 01/24/18 16:30 Laboratory Results - last 24 hr 01/24/18 01/24/18 01/24/18 16:30 16:30 16:30 WBC 8.0 RBC 4.47 Hgb 13.9 Hct 40.4 MCV 90.4 MCH 31.2 MCHC 34.5 RDW 14.3 Plt Count 139 D MPV 8.4 Absolute Neuts (auto) 5.2 Neutrophils % 65.1 D Lymphocytes % 22.6 D Monocytes % 8.0 Eosinophils % 3.9 Basophils % 0.4 Nucleated RBC % 0 PT with INR 14.30 H INR 1.27 H PTT (Actin FS) 33.7 VBG pH POC VBG pCO2 POC VBG pO2 Mixed VBG HCO3 Sodium 137 Potassium 3.5 Chloride 104 Carbon Dioxide 25 Anion Gap 8 BUN 5 L Creatinine 0.8 Creat Clearance w eGFR > 60 Random Glucose 186 H Lactic Acid Calcium 8.8 Total Bilirubin 2.0 H AST 72 H ALT 41 Alkaline Phosphatase 146 H Troponin I Total Protein 7.7 Albumin 3.2 L Urine Color Urine Appearance Urine pH Ur Specific [place] Urine Protein Urine Glucose (UA) Urine Ketones Urine Blood Urine Nitrite Urine Bilirubin Urine Urobilinogen Ur Leukocyte Esterase 01/24/18 01/24/18 01/24/18 16:30 16:50 16:50 WBC RBC Hgb Hct MCV MCH MCHC RDW Plt Count MPV Absolute Neuts (auto) Neutrophils % Lymphocytes % Monocytes % Eosinophils % Basophils % Nucleated RBC % PT with INR INR PTT (Actin FS) VBG pH 7.43 H POC VBG pCO2 37.0 L POC VBG pO2 43.9 Mixed VBG HCO3 24.3 Sodium Potassium Chloride Carbon Dioxide Anion Gap BUN Creatinine Creat Clearance w eGFR Random Glucose Lactic Acid 2.1 H Calcium Total Bilirubin AST ALT Alkaline Phosphatase Troponin I < 0.02 Total Protein Albumin Urine Color Urine Appearance Urine pH Ur Specific [place] Urine Protein Urine Glucose (UA) Urine Ketones Urine Blood Urine Nitrite Urine Bilirubin Urine Urobilinogen Ur Leukocyte Esterase 01/24/18 01/24/18 17:23 18:30 WBC RBC Hgb Hct MCV MCH MCHC RDW Plt Count MPV Absolute Neuts (auto) Neutrophils % Lymphocytes % Monocytes % Eosinophils % Basophils % Nucleated RBC % PT with INR INR PTT (Actin FS) VBG pH POC VBG pCO2 POC VBG pO2 Mixed VBG HCO3 Sodium Potassium Chloride Carbon Dioxide Anion Gap BUN Creatinine Creat Clearance w eGFR Random Glucose Lactic Acid 4.2 H* Calcium Total Bilirubin AST ALT Alkaline Phosphatase Troponin I Total Protein Albumin Urine Color Ltyellow Urine Appearance Clear Urine pH 7.0 Ur Specific [place] 1.004 Urine Protein Negative Urine Glucose (UA) Negative Urine Ketones Negative Urine Blood Negative Urine Nitrite Negative Urine Bilirubin Negative Urine Urobilinogen 2.0 H Ur Leukocyte Esterase Negative Intake & Output 01/21/18 01/22/18 01/23/18 01/24/18 23:59 23:59 23:59 23:59 Weight 72.575 kg Current Medications Generic Name Dose Route Start Last Admin Trade Name Freq PRN Reason Stop Dose Admin Albuterol/Ipratropium 1 amp 01/24/18 19:50 Duoneb - NEB Q6H PRN SHORTNESS OF BREATH Amlodipine Besylate 5 mg 01/25/18 10:00 Norvasc - PO DAILY [facility] Aspirin 81 mg 01/25/18 10:00 Asa - PO DAILY [facility] Escitalopram Oxalate 10 mg 01/25/18 10:00 Lexapro - PO DAILY [facility] Fludrocortisone Acetate 0.1 mg 01/25/18 10:00 Florinef - PO DAILY [facility] Heparin Sodium (Porcine) 5,000 unit 01/24/18 22:00 Heparin - SQ BID [facility] Insulin Aspart 1 vial 01/24/18 22:00 Novolog Vial Sliding Scale - SQ ACHS [facility] Protocol Losartan Potassium 25 mg 01/25/18 10:00 Cozaar - PO DAILY [facility] Nadolol 20 mg 01/25/18 10:00 Corgard - PO DAILY [facility] Pantoprazole Sodium 40 mg 01/25/18 10:00 Protonix - PO DAILY [facility] Rosuvastatin Calcium 20 mg 01/24/18 22:00 Crestor - PO HS [facility] Imaging - Results Chest X-ray: Report Reviewed, Image Reviewed Problem List - Problems (1) Pneumonia Code(s): J18.9 - PNEUMONIA, UNSPECIFIED ORGANISM Qualifiers: (2) Cough Code(s): R05 - COUGH (3) Asthma Code(s): J45.909 - UNSPECIFIED ASTHMA, UNCOMPLICATED Qualifiers: Asthma severity: unspecified severity Asthma complication type: uncomplicated (4) Anemia Code(s): D64.9 - ANEMIA, UNSPECIFIED (5) Anxiety Code(s): F41.9 - ANXIETY DISORDER, UNSPECIFIED (6) Chronic ischemic heart disease Code(s): I25.9 - CHRONIC ISCHEMIC HEART DISEASE, UNSPECIFIED (7) Cirrhosis of liver Code(s): K74.60 - UNSPECIFIED CIRRHOSIS OF LIVER Qualifiers: Hepatic cirrhosis type: alcoholic cirrhosis Ascites presence: without ascites Qualified Code(s): K70.30 - Alcoholic cirrhosis of liver without ascites (8) Coronary artery disease Code(s): I25.10 - ATHSCL HEART DISEASE OF [place] CORONARY ARTERY W/O ANG PCTRS Qualifiers: Coronary Disease-Associated Artery/Lesion type: [place] artery [place] vs. transplanted heart: [place] heart Associated angina: without angina Qualified Code(s): I25.10 - Atherosclerotic heart disease of [place] coronary artery without angina pectoris (9) Depression Code(s): F32.9 - MAJOR DEPRESSIVE DISORDER, SINGLE EPISODE, UNSPECIFIED (10) Diabetes Code(s): E11.9 - TYPE 2 DIABETES MELLITUS WITHOUT COMPLICATIONS (11) Dyspnea Code(s): R06.00 - DYSPNEA, UNSPECIFIED Qualifiers: Dyspnea type: shortness of breath Qualified Code(s): R06.02 - Shortness of breath (12) Hyperlipidemia Code(s): E78.5 - HYPERLIPIDEMIA, UNSPECIFIED Qualifiers: Hyperlipidemia type: pure hypercholesterolemia Qualified Code(s): E78.00 - Pure hypercholesterolemia, unspecified; E78.0 - Pure hypercholesterolemia (13) Hypertension Code(s): I10 - ESSENTIAL (PRIMARY) HYPERTENSION (14) S/P coronary artery stent placement Code(s): Z95.5 - PRESENCE OF CORONARY ANGIOPLASTY IMPLANT AND GRAFT Assessment/Plan 77 y/o woman Admitted for Community Acquired Pneumonia for further evaluation of their emergent condition. Plan 1. CAP- [id number] 1, CXR image- ?RML, blood cultures pending, LA 2.1, Ceftriaxone, Azithromycin given in ED, Will start Aztreonam in am, Appreciate ID consult, will order sputum culture, urine legionella, Influenza swab, O2, monitor CBC, Duonebs. 2. Asthma- stable, Duonebs, Continue home meds, Appreciate Pulm Consult, Peak flows, Monitor vitals. 3.CAD- stable, s/p stent, CXR reviewed, EKG reviewed, CP likely pleuritic secondary to cough from PNA, continue home meds 4. HTN- sub optimal, monitor BP, continue home meds, monitor renal function 5. HLD- continue home med 6. CVA hx- fall precautions, continue home meds 7. IDDM- sub optimal, BGMs, ISS, Diabetic Diet, HgbA1c in am 8. Anemia- stable, will transfuse if Hgb < 7.0 9. Hx GI Bleed- stable, no active bleed 10. Cirrhosis- stable, Alcohol related, monitor LFTs 11. Anxiety- controlled, continue home meds 12. FEN- Replete lytes prn, Low Na, Diabetic Diet 13. DVT ppx- OOB, SCDs Code Status: Full Code Dispo: Requires Inpatient Care Visit type - Emergency Visit Emergency Visit: Yes ED Registration Date: 01/24/18 Care time: The patient presented to the Emergency Department on the above date and was hospitalized for further evaluation of their emergent condition. - New Patient This patient is new to me today: Yes Date on this admission: 01/24/18 - Critical Care Critical Care patient: No Hospitalist Screening - Colonoscopy Questionnaire Colonoscopy Questionnaire: Colonoscopy Questionnaire - Patient: 50 - 75 years old and never had a screening colonoscopy: Unknown History of colon or rectal polyps, or CA: Unknown History of IBD, Crohn's disease or UC: Unknown History of abdominal radiation therapy as a child: Unknown - Relative: 1 with colon or rectal CA, or polyps at age 60 or younger: Unknown Colon or rectal CA diagnosed at age 45 or younger: Unknown Multiple relatives with colon or rectal CA: Unknown - Outcome: Screening Result: Negative Screen
[2018-01-24] MEDS: ALBUTEROL SO4 2.5/IPRATROPIUM 0.5 INH SOL 3 ML VIAL.NEB. NEB PRN (21:37)
[2018-01-24] MEDS ORDERED: HEPARIN NA (PORCINE) 5,000 UNITS/ML 1ML VIAL ONE (21:41)
[2018-01-24] MEDS ORDERED: INSULIN (NOVOLOG MIX 70/30) 100 UNITS/ML MDV SQ ONE (21:41)
[2018-01-24] MEDS: HEPARIN NA (PORCINE) 5,000 UNITS/ML 1ML VIAL SQ SCH (21:44)
[2018-01-24] MEDS: INSULIN SLIDING SCALE (NOVOLOG) 1 VIAL SQ SCH (21:44)
[2018-01-24] MEDS: ROSUVASTATIN CA 20 MG TABLET (FP) PO SCH (21:55)
[2018-01-25] MEDS: INSULIN SLIDING SCALE (NOVOLOG) 1 VIAL SQ SCH ×4 (06:07→21:23)
[2018-01-25 07:52] LABS: BASO % 0.6 % (0-2.0); EOS % 6.2 % (0-4.5); HEMATOCRIT 37.2 % (32.4-45.2); HEMOGLOBIN 12.6 GM/dL (10.7-15.3); LYMPH % 23.9 % (8-40); MCH 30.7 pg (25.7-33.7); MCHC 33.8 g/dl (32.0-36.0); MEAN CELL VOLUME 90.8 fl (80-96); MEAN PLT VOLUME 8.5 fl (7.5-11.1); MONO % 6.7 % (3.8-10.2); NEUT % 62.6 % (42.8-82.8); PLATELET COUNT 108 K/MM3 (134-434); RDW 14.4 % (11.6-15.6); WHITE BLOOD COUNT 6.1 K/mm3 (4.0-10.0)
[2018-01-25 08:13] LABS: ANION GAP 9 MMOL/L (8-16); BLOOD UREA NITROGEN 5 mg/dL (7-18); CALCIUM 8.3 mg/dL (8.5-10.1); CHLORIDE 108 mmol/L (98-107); CO2 25 mmol/L (21-32); CREATININE 0.7 mg/dL (0.55-1.3); GLUCOSE,RANDOM 152 mg/dL (74-106); POTASSIUM 3.7 mmol/L (3.5-5.1); SODIUM 142 mmol/L (136-145)
[2018-01-25] MEDS: ALBUTEROL SO4 2.5/IPRATROPIUM 0.5 INH SOL 3 ML VIAL.NEB. NEB PRN ×3 (08:29→19:12)
[2018-01-25] MEDS ORDERED: FUROSEMIDE 40 MG/4 ML INJECTABLE VIAL IVPUSH ONE (09:03)
--- NOTE | 2018-01-25 09:03 | PN ---
Progress Note, Physician Chief Complaint: AWAKE ALERT EVENTS AND NOTES REVIEWED - Current Medication List Current Medications: Active Medications Albuterol/Ipratropium (Duoneb -) 1 amp NEB Q6H PRN PRN Reason: SHORTNESS OF BREATH Last Admin: 01/25/18 08:29 Dose: 1 amp Amlodipine Besylate (Norvasc -) 5 mg PO DAILY [facility] Aspirin (Asa -) 81 mg PO DAILY [facility] Escitalopram Oxalate (Lexapro -) 10 mg PO DAILY [facility] Fludrocortisone Acetate (Florinef -) 0.1 mg PO DAILY [facility] Heparin Sodium (Porcine) (Heparin -) 5,000 unit SQ BID KANNAN Last Admin: 01/24/18 21:44 Dose: 5,000 unit Aztreonam 1 gm/ Dextrose 50 mls @ 100 mls/hr IVPB Q8H-IV [facility]; Protocol Aztreonam 1 gm/ Dextrose 50 mls @ 100 mls/hr IVPB Q8H-IV [facility] Stop: 01/26/18 10:29 Insulin Aspart (Novolog Vial Sliding Scale -) 1 vial SQ ACHS [facility]; Protocol Last Admin: 01/25/18 06:07 Dose: Not Given Losartan Potassium (Cozaar -) 25 mg PO DAILY [facility] Nadolol (Corgard -) 20 mg PO DAILY [facility] Non-Formulary Medication (Fluticasone Furoate [Arnuity Ellipta]) 100 mcg IH DAILY [facility] Pantoprazole Sodium (Protonix -) 40 mg PO DAILY [facility] Rosuvastatin Calcium (Crestor -) 20 mg PO HS [facility] Last Admin: 01/24/18 21:55 Dose: 20 mg - Objective Vital Signs: Vital Signs Temperature 98.3 F 01/25/18 06:43 Pulse Rate 98 H 01/25/18 06:43 Respiratory Rate 20 01/25/18 06:43 Blood Pressure 153/80 01/25/18 06:43 O2 Sat by Pulse Oximetry (%) 96 01/24/18 18:23 Constitutional: Yes: Mild Distress Eyes: Yes: WNL HENT: Yes: WNL Neck: Yes: WNL Cardiovascular: Yes: WNL Respiratory: Yes: On Nasal O2, Wheezes Gastrointestinal: Yes: WNL Genitourinary: Yes: WNL Musculoskeletal: Yes: Muscle Weakness Extremities: Yes: Other Edema: Yes Integumentary: Yes: WNL Wound/Incision: Yes: Clean/Dry Neurological: Yes: Pre-Existing Deficit ...Motor Strength: LLE, RLE Psychiatric: Yes: Other Labs: CBC, BMP 01/25/18 07:10 01/25/18 07:10 INR, PTT INR 1.27 (0.83-1.09) H 01/24/18 16:30 Problem List - Problems (1) Pneumonia Code(s): J18.9 - PNEUMONIA, UNSPECIFIED ORGANISM Qualifiers: (2) Anemia Code(s): D64.9 - ANEMIA, UNSPECIFIED (3) Angina pectoris Code(s): I20.9 - ANGINA PECTORIS, UNSPECIFIED (4) Anxiety Code(s): F41.9 - ANXIETY DISORDER, UNSPECIFIED (5) Asthma Code(s): J45.909 - UNSPECIFIED ASTHMA, UNCOMPLICATED Qualifiers: Asthma severity: unspecified severity Asthma complication type: uncomplicated (6) Hyperlipidemia Code(s): E78.5 - HYPERLIPIDEMIA, UNSPECIFIED Qualifiers: Hyperlipidemia type: pure hypercholesterolemia Qualified Code(s): E78.00 - Pure hypercholesterolemia, unspecified; E78.0 - Pure hypercholesterolemia (7) Hypertension Code(s): I10 - ESSENTIAL (PRIMARY) HYPERTENSION (8) S/P coronary artery stent placement Code(s): Z95.5 - PRESENCE OF CORONARY ANGIOPLASTY IMPLANT AND GRAFT Assessment/Plan IV ABX IV LASIX 02 NC 2L PULM/ID/CARDIO CONSULT OOB TO CHAIR DVT PROPHYLAXIS
[2018-01-25] MEDS: LOSARTAN POTASSIUM 25 MG TABLET PO SCH (09:36)
[2018-01-25] MEDS: ESCITALOPRAM OXALATE 10 MG TABLET (FP) PO SCH (09:36)
[2018-01-25] MEDS: amLODIPine BESYLATE 5 MG TABLET (FP) PO SCH (09:36)
[2018-01-25] MEDS: NADOLOL 20 MG TABLET (FP) PO SCH (09:36)
[2018-01-25] MEDS: PANTOPRAZOLE 40 MG TABLET (FP) PO SCH (09:36)
[2018-01-25] MEDS: ASPIRIN 81 MG CHEWABLE TABLETS PO SCH (09:36)
[2018-01-25] MEDS: HEPARIN NA (PORCINE) 5,000 UNITS/ML 1ML VIAL SQ SCH ×2 (09:36→21:13)
--- NOTE | 2018-01-25 09:51 | CON.CARD ---
Consult Consult Specialty:: Cardiology Referred by:: Ambrosio Reason for Consultation:: shortness of breath - History of Present Illness Chief Complaint: cough History of Present Illness: 77F h/o CAD with stent(1979, LAD), HTN, HLD, DM, Anemia, GI Bleed, Alcohol Cirrhosis, CVA, Hyponatremia, L- Breast Ca, Anxiety p/w fever, chills, cp, cough. Treating empirically for PNA, started on abx, ID consulted. Trop neg x1 , BNP pending. no leukocyosis, lactate 4.2. This morning received one dose of IV lasix 40 mg. feels better today. still has cough and gets pain in chest when coughing or deep breaths. Sees Dr. Ceja in clinic. 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 poor prep in past.), Stent (cardiac), Tonsillectomy, Upper Endoscopy (h/o esoph varices. on nadalol. s/p banding. due to surveillance egd in 01/2015) - Alcohol/Substance Use Hx Alcohol Use: No History of Substance Use: reports: None - Smoking History Smoking history: Former smoker Have you smoked in the past 12 months: No Aproximately how many cigarettes per day: 0 If you are a former smoker, when did you quit?: over 30 years ago - Social History Usual Living Arrangement: Alone ADL: Independent History of Recent Travel: No Home Medications - Allergies Allergies/Adverse Reactions: Allergies Allergy/AdvReac Type Severity Reaction Status Date / Time levofloxacin [From Levaquin] Allergy Intermediate Rash Verified 09/01/17 20:34 Penicillins Allergy Rash Verified 09/01/17 20:34 sulfamethoxazole AdvReac Intermediate Verified 09/01/17 20:34 [From Bactrim] trimethoprim [From Bactrim] AdvReac Intermediate Verified 09/01/17 20:34 - Home Medications Home Medications: Ambulatory Orders Aspirin [ASA -] 81 mg PO DAILY 10/09/14 Albuterol Sulfate [Proventil HFA Inhaler -] 1 - 2 inh PO Q4H PRN 07/03/15 Insulin Detemir [Levemir Flextouch] 50 units SQ HS 09/02/17 Nadolol [Corgard -] 20 mg PO DAILY tablet 09/05/17 Albuterol 0.083% Nebulizer Elizabeth [Ventolin 0.083% Nebulizer Soln -] 1 amp NEB PRN PRN 01/24/18 Amlodipine Besylate [Norvasc -] 5 mg PO DAILY 01/24/18 Escitalopram Oxalate [Lexapro -] 10 mg PO DAILY 01/24/18 Fludrocortisone Acetate [Florinef -] 0.1 mg PO DAILY 01/24/18 Fluticasone Furoate [Arnuity Ellipta] 100 mcg IH DAILY 01/24/18 Insulin Lispro [Humalog] 100 unit SQ ASDIR 01/24/18 Losartan Potassium [Cozaar -] 25 mg PO DAILY 01/24/18 Pantoprazole Sodium [Protonix] 40 mg PO DAILY 01/24/18 Rosuvastatin [Crestor -] 20 mg PO DAILY 01/24/18 Umeclidinium [place] [Incruse Ellipta] 62.5 mcg IH DAILY 01/24/18 Family Disease History - Family Disease History Family Disease History: Diabetes: Brother Review of Systems - Review of Systems Constitutional: reports: No Symptoms Eyes: reports: No Symptoms HENT: reports: No Symptoms Neck: reports: No Symptoms Cardiovascular: reports: Chest Pain, Shortness of Breath Respiratory: reports: Cough Gastrointestinal: reports: No Symptoms Genitourinary: reports: No Symptoms Musculoskeletal: reports: Back Pain Integumentary: reports: No Symptoms Neurological: reports: No Symptoms Endocrine: reports: No Symptoms Hematology/Lymphatic: reports: No Symptoms Psychiatric: reports: No Symptoms Vital Signs: Vital Signs Temperature 98.3 F 01/25/18 06:43 Pulse Rate 98 H 01/25/18 06:43 Respiratory Rate 20 01/25/18 06:43 Blood Pressure 153/80 01/25/18 06:43 O2 Sat by Pulse Oximetry (%) 96 01/24/18 18:23 Constitutional: Yes: Well Nourished, No Distress, Calm Eyes: Yes: WNL HENT: Yes: Atraumatic, Normocephalic Neck: Yes: Supple, Trachea Midline Respiratory: Yes: CTA Bilaterally, On Nasal O2 Gastrointestinal: Yes: Normal Bowel Sounds, Soft Renal/: Yes: WNL Cardiovascular: Yes: Regular Rate and Rhythm JVD: No Heart Sounds: Yes: S1, S2 Edema: No Peripheral Pulses WNL: Yes Peripheral Pulses: 2+ Left Doralis Pedis, 2+ Right Dorsalis Pedis Integumentary: Yes: WNL Neurological: Yes: Alert, Oriented ...Motor Strength: WNL Psychiatric: Yes: Alert, Oriented - Other Data Labs, Other Data: CBC, BMP 01/25/18 07:10 01/25/18 07:10 INR, PTT INR 1.27 (0.83-1.09) H 01/24/18 16:30 Troponin, BNP 01/24/18 16:50 Troponin I < 0.02 Troponin, BNP 01/24/18 16:50 Troponin I < 0.02 Assessment/Plan EKG: sinus rhythm, TWI anterior leads CXR: mild congestion, chronic interstitial changes echo 12/2015: nl lv/rv, mod-sev tr, rvsp 37 echo 08/2017: nl lv/rv, mild mr, mod tr, mod ar mibi 02/2017: nl mpi, nl lvef a/p: 77 yo with hx dm, htn, hld, cvas/tias, cad s/p remote pci in P.R., cirrhosis (etoh cirrhosis with varices s/p banding by dr park), breast ca 12/2014, here with shortness of breath, chest pain Dyspnea, ILD, COPD - treating empirically for PNA per primary team - CXR shows mild congestion/chronic interstitial changes - received lasix 40 mg IV times one this AM - pulm following, CT chest ordered and sputum AFB - hold on further lasix at this point, appears euvolemic. nl EF 08/2017 chest pain - likely pleuritic from cough - trop neg x 1, trending troponins. EKG with new TWI compared to prior however given clinical picture not concerning for ischemia Cirrhosis of liver -sec to prior etoh abuse -no signs of bleeding on asa -on nadolol, h/o varices mod-sev tr - no signs right heart failure on exam - rv normal on echo and no sig pulm htn 08/2017 - monitor clinically Hypertension -on home nadolol, cozaar, amlodipine Chronic ischemic heart disease/cad s/p remote pci in P.R. (lad) -patent prior stent in lad and no sig residual dz on cath 10/2011 -no ischemia on recent mibi -no signs acs here -cont nadolol (on for portal htn) -cont asa, statin (previously cleared for statin by GI/liver, LFTs had been stable as outpt, remain stable here)
--- NOTE | 2018-01-25 09:52 | CON.PULM ---
Consult Consult Specialty:: PULM/CCM Referred by:: MANOLO Reason for Consultation:: SOB /PNA - History of Present Illness Chief Complaint: Cough / SOB History of Present Illness: 77 F, known to me from previous admissions. 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 She was supposed to be on Zithromax/ETH/RIF TIW. Unknown if she started/completed this treatment. Baseline CT: groundglass opacities / nodules / bronchiectasis No recent travel history or sick contacts. Denies hemoptysis or night sweats. CXR: No gross change from previous CXR imaging. 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 poor prep in past.), Stent (cardiac), Tonsillectomy, Upper Endoscopy (h/o esoph varices. on nadalol. s/p banding. due to surveillance egd in 01/2015) - Alcohol/Substance Use Hx Alcohol Use: No History of Substance Use: reports: None - Smoking History Smoking history: Former smoker Have you smoked in the past 12 months: No Aproximately how many cigarettes per day: 0 If you are a former smoker, when did you quit?: over 30 years ago - Social History Usual Living Arrangement: Alone ADL: Independent History of Recent Travel: No Home Medications - Allergies Allergies/Adverse Reactions: Allergies Allergy/AdvReac Type Severity Reaction Status Date / Time levofloxacin [From Levaquin] Allergy Intermediate Rash Verified 09/01/17 20:34 Penicillins Allergy Rash Verified 09/01/17 20:34 sulfamethoxazole AdvReac Intermediate Verified 09/01/17 20:34 [From Bactrim] trimethoprim [From Bactrim] AdvReac Intermediate Verified 09/01/17 20:34 - Home Medications Home Medications: Ambulatory Orders Aspirin [ASA -] 81 mg PO DAILY 10/09/14 Albuterol Sulfate [Proventil HFA Inhaler -] 1 - 2 inh PO Q4H PRN 07/03/15 Insulin Detemir [Levemir Flextouch] 50 units SQ HS 09/02/17 Nadolol [Corgard -] 20 mg PO DAILY tablet 09/05/17 Albuterol 0.083% Nebulizer Elizabeth [Ventolin 0.083% Nebulizer Soln -] 1 amp NEB PRN PRN 01/24/18 Amlodipine Besylate [Norvasc -] 5 mg PO DAILY 01/24/18 Escitalopram Oxalate [Lexapro -] 10 mg PO DAILY 01/24/18 Fludrocortisone Acetate [Florinef -] 0.1 mg PO DAILY 01/24/18 Fluticasone Furoate [Arnuity Ellipta] 100 mcg IH DAILY 01/24/18 Insulin Lispro [Humalog] 100 unit SQ ASDIR 01/24/18 Losartan Potassium [Cozaar -] 25 mg PO DAILY 01/24/18 Pantoprazole Sodium [Protonix] 40 mg PO DAILY 01/24/18 Rosuvastatin [Crestor -] 20 mg PO DAILY 01/24/18 Umeclidinium [place] [Incruse Ellipta] 62.5 mcg IH DAILY 01/24/18 Family Disease History - Family Disease History Family Disease History: Diabetes: Brother Review of Systems - Review of Systems Constitutional: reports: Malaise. denies: Chills, Fever, Night Sweats, Unintentional Wgt. Loss Eyes: reports: No Symptoms HENT: reports: No Symptoms Neck: reports: No Symptoms Cardiovascular: reports: Chest Pain, Shortness of Breath. denies: Edema, Palpitations Respiratory: reports: Cough, SOB, SOB on Exertion. denies: Hemoptysis, Orthopnea, Snoring, Wheezing Gastrointestinal: reports: No Symptoms Genitourinary: reports: No Symptoms Breasts: reports: No Symptoms Reported Musculoskeletal: reports: No Symptoms Integumentary: reports: No Symptoms Neurological: reports: No Symptoms Endocrine: reports: No Symptoms Hematology/Lymphatic: reports: No Symptoms Psychiatric: reports: No Symptoms Physical Exam Vital Sings: Vital Signs Temperature 98.3 F 01/25/18 06:43 Pulse Rate 98 H 01/25/18 06:43 Respiratory Rate 20 01/25/18 06:43 Blood Pressure 153/80 01/25/18 06:43 O2 Sat by Pulse Oximetry (%) 96 01/24/18 18:23 Constitutional: Yes: No Distress Eyes: Yes: Conjunctiva Clear, EOM Intact HENT: Yes: Atraumatic, Normocephalic Neck: Yes: Supple, Trachea Midline Cardiovascular: Yes: Regular Rate and Rhythm Respiratory: Yes: Cough, Diminished, On Nasal O2, Rhonchi, SOB on Exertion, Tachypnea. No: Accessory Muscle Use, Rales, Stridor, Wheezes ...Inspection: Yes: WNL ...Clubbing: No Gastrointestinal: Yes: Normal Bowel Sounds, Soft Musculoskeletal: Yes: WNL Extremities: Yes: WNL Edema: No Peripheral Pulses WNL: Yes Integumentary: Yes: WNL Neurological: Yes: Alert, Oriented ...Motor Strength: WNL Psychiatric: Yes: WNL, Alert, Oriented Labs: CBC, BMP 01/25/18 07:10 01/25/18 07:10 Imaging - Results Chest X-ray: Report Reviewed, Image Reviewed Assessment/Plan Problem List - Problems (1) Pneumonia Code(s): J18.9 - PNEUMONIA, UNSPECIFIED ORGANISM Qualifiers: (2) Cough Code(s): R05 - COUGH (3) Asthma Code(s): J45.909 - UNSPECIFIED ASTHMA, UNCOMPLICATED Qualifiers: Asthma severity: unspecified severity Asthma complication type: uncomplicated (4) Anemia Code(s): D64.9 - ANEMIA, UNSPECIFIED (5) Anxiety Code(s): F41.9 - ANXIETY DISORDER, UNSPECIFIED (6) Chronic ischemic heart disease Code(s): I25.9 - CHRONIC ISCHEMIC HEART DISEASE, UNSPECIFIED (7) Cirrhosis of liver Code(s): K74.60 - UNSPECIFIED CIRRHOSIS OF LIVER Qualifiers: Hepatic cirrhosis type: alcoholic cirrhosis Ascites presence: without ascites Qualified Code(s): K70.30 - Alcoholic cirrhosis of liver without ascites (8) Coronary artery disease Code(s): I25.10 - ATHSCL HEART DISEASE OF [place] CORONARY ARTERY W/O ANG PCTRS Qualifiers: Coronary Disease-Associated Artery/Lesion type: [place] artery [place] vs. transplanted heart: [place] heart Associated angina: without angina Qualified Code(s): I25.10 - Atherosclerotic heart disease of [place] coronary artery without angina pectoris (9) Depression Code(s): F32.9 - MAJOR DEPRESSIVE DISORDER, SINGLE EPISODE, UNSPECIFIED (10) Diabetes Code(s): E11.9 - TYPE 2 DIABETES MELLITUS WITHOUT COMPLICATIONS (11) Dyspnea Code(s): R06.00 - DYSPNEA, UNSPECIFIED Qualifiers: Dyspnea type: shortness of breath Qualified Code(s): R06.02 - Shortness of breath (12) Hyperlipidemia Code(s): E78.5 - HYPERLIPIDEMIA, UNSPECIFIED Qualifiers: Hyperlipidemia type: pure hypercholesterolemia Qualified Code(s): E78.00 - Pure hypercholesterolemia, unspecified; E78.0 - Pure hypercholesterolemia (13) Hypertension Code(s): I10 - ESSENTIAL (PRIMARY) HYPERTENSION (14) S/P coronary artery stent placement Code(s): Z95.5 - PRESENCE OF CORONARY ANGIOPLASTY IMPLANT AND GRAFT Assessment/Plan LUCILLE previously diagnosed in 2016: unclear if she received treatment CT chest ID evaluation has been called IVF Follow [place] O2 as needed No clear indication for systemic steroids at this time Check sputum AFB Will follow Dr Viveros
[2018-01-25] MEDS ORDERED: AZTREONAM 1 GM in DEXTROSE 5%-WATER - 50 ML IVPB SCH (10:00)
[2018-01-25] MEDS ORDERED: CEFUROXIME INJECTION 750 MG in DEXTROSE 5%-WATER - 50 ML IVPB SCH (10:00)
[2018-01-25] MEDS: FLUDROCORTISONE ACETATE 0.1 MG TABLET (FP) PO SCH (12:30)
--- NOTE | 2018-01-25 12:37 | PN ---
Progress Note (short form) - Note Progress Note: ID Consult dictated Pneumonia Hx NTM lung infection Multiple antibiotic allergies Pending c/s empiric vancomycin/ aztreonam
--- NOTE | 2018-01-25 13:37 | EKG ---
Test Reason : Blood Pressure : / mmHG Vent. Rate : 085 BPM Atrial Rate : 085 BPM P-R Int : 146 ms QRS Dur : 086 ms QT Int : 388 ms P-R-T Axes : 044 -20 012 degrees QTc Int : 461 ms NORMAL SINUS RHYTHM POSSIBLE ANTERIOR INFARCT , AGE UNDETERMINED ABNORMAL ECG WHEN COMPARED WITH ECG OF 02-SEP-2017 00:17, BORDERLINE CRITERIA FOR ANTERIOR INFARCT ARE NOW PRESENT INVERTED T WAVES HAVE REPLACED NONSPECIFIC T WAVE ABNORMALITY IN ANTERIOR LEADS Confirmed by KINJAL VICENTE MD ([id number]) on 01/25/2018 1:37:05 PM Referred By: Confirmed By:KINJAL VICENTE MD
[2018-01-25] MEDS: VANCOMYCIN 1,000 MG in DEXTROSE 5%-WATER - 250 ML IVPB SCH (13:48)
--- NOTE | 2018-01-25 16:58 | HOSP ---
Subjective - Review of Symptoms Musculoskeletal: Yes: Muscle Pain Physical Examination Vital Signs: Vital Signs Temperature 97.9 F 01/25/18 14:43 Pulse Rate 87 01/25/18 14:43 Respiratory Rate 18 01/25/18 14:43 Blood Pressure 131/73 01/25/18 14:43 O2 Sat by Pulse Oximetry (%) 96 01/25/18 09:00 Constitutional: Yes: Well Nourished Eyes: Yes: WNL HENT: Yes: WNL Neck: Yes: WNL Respiratory: Yes: WNL Gastrointestinal: Yes: WNL Labs: CBC, BMP 01/25/18 07:10 01/25/18 07:10 Hospitalist Encounter Assessment: 77 year old female with here for pneumonia, currently on IV antibiotics with supportive care with eladio. Informed by RN that patient was having chest pain that started today, worsening with coughing. exam awake, alert in no acute distress, tolerating room air. States chest pain only occurs with coughing and is intermittent since yesterday. No chest pain currently. EKG NSR, no st elevations lung diminished anteriorly/posteriorly, coughing with deep breathing. plan will give one dose of cough suppressant saline treatment via neb x 1 may provided a layer of humidification has eladio ordered chest pain is muscular secondary to coughing spells incentive spirometer
[2018-01-25] MEDS ORDERED: guaiFENesin/D-METHORPHAN HB 5 ML UNIT-DOSE CUPS PO ONE (17:21)
[2018-01-25] MEDS ORDERED: MENTHOL/PHENOL 1 EACH UD MM PRN (17:23)
[2018-01-25] MEDS ORDERED: SODIUM CHLORIDE FOR INHALATION 3 ML VIAL.NEB IH ONE ×4 (17:26→18:00)
[2018-01-25] MEDS ORDERED: PT OWN MED DRAWER 7, Y5N ONE ×2 (17:28→23:59)
[2018-01-25] MEDS: AZTREONAM 1 GM in DEXTROSE 5%-WATER - 50 ML IVPB SCH (17:30)
[2018-01-25] MEDS ORDERED: ROSUVASTATIN CA 10 MG TABLET (FP) ONE (21:08)
[2018-01-25] MEDS ORDERED: INSULIN (NOVOLOG) ASPART 100 UNITS/ML 10ML VIAL ONE (21:08)
[2018-01-25] MEDS: ROSUVASTATIN CA 20 MG TABLET (FP) PO SCH (21:31)
[2018-01-26] MEDS: VANCOMYCIN 1,000 MG in DEXTROSE 5%-WATER - 250 ML IVPB SCH ×2 (00:06→12:20)
--- NOTE | 2018-01-26 01:43 | CONS ---
DATE OF CONSULTATION: DATE OF DICTATION: 01/25/2018 This 77-year-old female is evaluated for pneumonia. History was obtained primarily from the chart. She was admitted to the hospital on January 24, 2018, with a 2-day history of complaints of fever, chills, shortness of breath, cough, and chest pain. She reports worsening cough with production of yellowish sputum. She was admitted to the hospital where a chest x-ray and CAT scan were obtained. CAT scan shows bilateral ground glass infiltrate with bilateral nodular lung lesions. Patient has a history of nontuberculous mycobacterial infection of the lung. It is unclear whether or not she had been treated in the past. On review of previous cultures, she has had several positive sputum cultures for MAC. At the present time, she is awake and alert. She is mildly short of breath at rest on oxygen mask. PAST MEDICAL HISTORY: Positive for coronary artery disease, diabetes mellitus, hypertension, gastroesophageal bleeding, stroke with right hemiparesis, hyperlipidemia, left breast cancer, chronic liver disease, history of atypical mycobacterial infection of the lung in 2016. ALLERGIES: LEVAQUIN, PENICILLIN, AND SULFA (RASH). MEDICATIONS: Include Florinef, Cozaar, heparin, Lexapro, Coreg, Norvasc, Crestor, aspirin, Protonix. SOCIAL HISTORY: Former smoker. Lives in the community. REVIEW OF SYSTEMS: Neurologic: No loss of consciousness, seizure activity, focal weakness. Cardiac: Negative for chest pain or palpitations. Respiratory: As per HPI. Gastrointestinal: Negative for vomiting or diarrhea. Genitourinary: Negative for urinary tract infection. LABORATORY DATA: White count 6.1, hematocrit 37.2, platelet count 108, BUN 5, creatinine 0.7, lactic acid 2.2. Urinalysis: Negative leukocyte esterase. Legionella antigen negative. CAT scan: As described. PHYSICAL EXAMINATION: General: She is awake and alert. She is mildly short of breath at rest. Vital Signs: Temperature 98.3, blood pressure 153/80, pulse 98 and regular, respirations 20 per minute. HEENT: Sclerae anicteric. Heart Sounds: S1, S2. Lungs: Bilateral crepitus and scattered rhonchi. Abdomen: Soft. No tenderness elicited. No mass, rebound, or rigidity. Extremities: Negative for edema. IMPRESSION: 1. Bilateral pneumonia. 2. History of nontuberculous mycobacterial lung infection. 3. Multiple antibiotic allergies. PLAN: Pending cultures. Empiric antibiotic coverage with vancomycin and Azactam in this PENICILLIN ALLERGIC patient. 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 We will discuss with Pulmonary. Treatment may commence after acute pneumonitis has been treated. Will follow, thank you for the kind referral. JAY SAMUELS M.D. [id number]
[2018-01-26] MEDS: AZTREONAM 1 GM in DEXTROSE 5%-WATER - 50 ML IVPB SCH ×3 (02:15→17:23)
[2018-01-26] MEDS: INSULIN SLIDING SCALE (NOVOLOG) 1 VIAL SQ SCH ×4 (06:45→21:42)
[2018-01-26 07:38] LABS: CHOLESTEROL 129 mg/dL (50-200); HDL CHOLESTEROL 59 mg/dL (40-60); TRIGLYCERIDES 56 mg/dL (0-150)
--- NOTE | 2018-01-26 09:04 | PN ---
Progress Note, Physician Chief Complaint: AWAKE ALERT DENIES FEVER OR CHILLS FEELING BETTER - Current Medication List Current Medications: Active Medications Albuterol/Ipratropium (Duoneb -) 1 amp NEB Q6H PRN PRN Reason: SHORTNESS OF BREATH Last Admin: 01/25/18 19:12 Dose: 1 amp Amlodipine Besylate (Norvasc -) 5 mg PO DAILY [facility] Last Admin: 01/25/18 09:36 Dose: 5 mg Aspirin (Asa -) 81 mg PO DAILY [facility] Last Admin: 01/25/18 09:36 Dose: 81 mg Escitalopram Oxalate (Lexapro -) 10 mg PO DAILY [facility] Last Admin: 01/25/18 09:36 Dose: 10 mg Eucalyptus/Menthol/Phenol/Sorbitol (Cepastat Lozenge -) 1 each MM Q4H PRN PRN Reason: SORE THROAT Fludrocortisone Acetate (Florinef -) 0.1 mg PO DAILY [facility] Last Admin: 01/25/18 12:30 Dose: 0.1 mg Heparin Sodium (Porcine) (Heparin -) 5,000 unit SQ BID [facility] Last Admin: 01/25/18 21:13 Dose: 5,000 unit Aztreonam 1 gm/ Dextrose 50 mls @ 100 mls/hr IVPB Q8H-IV [facility]; Protocol Last Admin: 01/26/18 02:15 Dose: 100 mls/hr Vancomycin HCl 1,000 mg/ (Dextrose) 250 mls @ 166.667 mls/hr IVPB BID@0100, 1300 [facility]; Protocol Last Admin: 01/26/18 00:06 Dose: 166.667 mls/hr Insulin Aspart (Novolog Vial Sliding Scale -) 1 vial SQ ACHS [facility]; Protocol Last Admin: 01/26/18 06:45 Dose: Not Given Losartan Potassium (Cozaar -) 25 mg PO DAILY [facility] Last Admin: 01/25/18 09:36 Dose: 25 mg Nadolol (Corgard -) 20 mg PO DAILY [facility] Last Admin: 01/25/18 09:36 Dose: 20 mg Non-Formulary Medication (Fluticasone Furoate [Arnuity Ellipta]) 100 mcg IH DAILY [facility] Pantoprazole Sodium (Protonix -) 40 mg PO DAILY [facility] Last Admin: 01/25/18 09:36 Dose: 40 mg Rosuvastatin Calcium (Crestor -) 20 mg PO HS [facility] Last Admin: 01/25/18 21:31 Dose: 20 mg - Objective Vital Signs: Vital Signs Temperature 98.7 F 01/26/18 06:00 Pulse Rate 76 01/26/18 06:00 Respiratory Rate 20 01/26/18 06:00 Blood Pressure 131/69 01/26/18 06:00 O2 Sat by Pulse Oximetry (%) 95 01/25/18 21:00 Constitutional: Yes: Mild Distress Eyes: Yes: WNL HENT: Yes: WNL Neck: Yes: WNL Cardiovascular: Yes: WNL Respiratory: Yes: On Nasal O2, Wheezes Gastrointestinal: Yes: WNL Genitourinary: Yes: Incontinence Musculoskeletal: Yes: Muscle Weakness Extremities: Yes: Other Edema: No Peripheral Pulses WNL: Yes Integumentary: Yes: WNL Wound/Incision: Yes: Clean/Dry Neurological: Yes: Pre-Existing Deficit ...Motor Strength: LLE, RLE Psychiatric: Yes: Other Labs: CBC, BMP 01/25/18 07:10 01/25/18 07:10 INR, PTT INR 1.27 (0.83-1.09) H 01/24/18 16:30 Problem List - Problems (1) Pneumonia Code(s): J18.9 - PNEUMONIA, UNSPECIFIED ORGANISM Qualifiers: (2) Anemia Code(s): D64.9 - ANEMIA, UNSPECIFIED (3) Angina pectoris Code(s): I20.9 - ANGINA PECTORIS, UNSPECIFIED (4) Anxiety Code(s): F41.9 - ANXIETY DISORDER, UNSPECIFIED (5) Asthma Code(s): J45.909 - UNSPECIFIED ASTHMA, UNCOMPLICATED Qualifiers: Asthma severity: unspecified severity Asthma complication type: uncomplicated (6) Hyperlipidemia Code(s): E78.5 - HYPERLIPIDEMIA, UNSPECIFIED Qualifiers: Hyperlipidemia type: pure hypercholesterolemia Qualified Code(s): E78.00 - Pure hypercholesterolemia, unspecified; E78.0 - Pure hypercholesterolemia (7) Hypertension Code(s): I10 - ESSENTIAL (PRIMARY) HYPERTENSION (8) S/P coronary artery stent placement Code(s): Z95.5 - PRESENCE OF CORONARY ANGIOPLASTY IMPLANT AND GRAFT Assessment/Plan IV ABX AWAIT FOR CULTURES IV LASIX, CT SCAN SHOWS CHF ALSO 02 NC 2L PULM/ID/CARDIO CONSULT OOB TO CHAIR DVT PROPHYLAXIS SNF PLACEMENT
--- NOTE | 2018-01-26 09:59 | EKG ---
Test Reason : Blood Pressure : / mmHG Vent. Rate : 066 BPM Atrial Rate : 066 BPM P-R Int : 162 ms QRS Dur : 090 ms QT Int : 456 ms P-R-T Axes : 051 -12 -02 degrees QTc Int : 478 ms NORMAL SINUS RHYTHM NORMAL ECG WHEN COMPARED WITH ECG OF 24-JAN-2018 17:04, BORDERLINE CRITERIA FOR ANTERIOR INFARCT ARE NO LONGER PRESENT T WAVE INVERSION NO LONGER EVIDENT IN ANTERIOR LEADS Confirmed by MARYANA SHEPARD, KEITH ([id number]) on 01/26/2018 9:58:44 AM Referred By: EDUAR FIELDS Confirmed By:KEITH MIJARES MD
[2018-01-26] MEDS ORDERED: AZTREONAM 1 GM in DEXTROSE 5%-WATER - 50 ML IVPB SCH (10:00)
[2018-01-26] MEDS ORDERED: PT OWN MED DRAWER 7, Y5N ONE ×2 (10:13→17:22)
[2018-01-26] MEDS: amLODIPine BESYLATE 5 MG TABLET (FP) PO SCH (10:18)
[2018-01-26] MEDS: NADOLOL 20 MG TABLET (FP) PO SCH (10:18)
[2018-01-26] MEDS: FLUDROCORTISONE ACETATE 0.1 MG TABLET (FP) PO SCH (10:18)
[2018-01-26] MEDS: LOSARTAN POTASSIUM 25 MG TABLET PO SCH (10:18)
[2018-01-26] MEDS: PANTOPRAZOLE 40 MG TABLET (FP) PO SCH (10:18)
[2018-01-26] MEDS: HEPARIN NA (PORCINE) 5,000 UNITS/ML 1ML VIAL SQ SCH ×2 (10:18→21:39)
[2018-01-26] MEDS: ESCITALOPRAM OXALATE 10 MG TABLET (FP) PO SCH (10:18)
[2018-01-26] MEDS: ASPIRIN 81 MG CHEWABLE TABLETS PO SCH (10:18)
[2018-01-26] MEDS ORDERED: INSULIN (NOVOLOG) ASPART 100 UNITS/ML 10ML VIAL ONE ×2 (11:34→16:40)
--- NOTE | 2018-01-26 13:04 | PN ---
Progress Note, Physician History of Present Illness: PULMONARY ALERT,SOME CLINICAL IMPROVEMENT ,LESS COUGH,LESS SOB - Current Medication List Current Medications: Active Medications Albuterol/Ipratropium (Duoneb -) 1 amp NEB Q6H PRN PRN Reason: SHORTNESS OF BREATH Last Admin: 01/25/18 19:12 Dose: 1 amp Amlodipine Besylate (Norvasc -) 5 mg PO DAILY [facility] Last Admin: 01/26/18 10:18 Dose: 5 mg Aspirin (Asa -) 81 mg PO DAILY [facility] Last Admin: 01/26/18 10:18 Dose: 81 mg Escitalopram Oxalate (Lexapro -) 10 mg PO DAILY [facility] Last Admin: 01/26/18 10:18 Dose: 10 mg Eucalyptus/Menthol/Phenol/Sorbitol (Cepastat Lozenge -) 1 each MM Q4H PRN PRN Reason: SORE THROAT Last Admin: 01/26/18 10:18 Dose: 1 each Fludrocortisone Acetate (Florinef -) 0.1 mg PO DAILY [facility] Last Admin: 01/26/18 10:18 Dose: 0.1 mg Heparin Sodium (Porcine) (Heparin -) 5,000 unit SQ BID [facility] Last Admin: 01/26/18 10:18 Dose: 5,000 unit Aztreonam 1 gm/ Dextrose 50 mls @ 100 mls/hr IVPB Q8H-IV [facility]; Protocol Last Admin: 01/26/18 10:18 Dose: 100 mls/hr Vancomycin HCl 1,000 mg/ (Dextrose) 250 mls @ 166.667 mls/hr IVPB BID@0100, 1300 [facility]; Protocol Last Admin: 01/26/18 12:20 Dose: 166.667 mls/hr Insulin Aspart (Novolog Vial Sliding Scale -) 1 vial SQ ACHS [facility]; Protocol Last Admin: 01/26/18 11:42 Dose: 2 unit Losartan Potassium (Cozaar -) 25 mg PO DAILY [facility] Last Admin: 01/26/18 10:18 Dose: 25 mg Nadolol (Corgard -) 20 mg PO DAILY [facility] Last Admin: 01/26/18 10:18 Dose: 20 mg Non-Formulary Medication (Fluticasone Furoate [Arnuity Ellipta]) 100 mcg IH DAILY [facility] Pantoprazole Sodium (Protonix -) 40 mg PO DAILY [facility] Last Admin: 01/26/18 10:18 Dose: 40 mg Rosuvastatin Calcium (Crestor -) 20 mg PO HS [facility] Last Admin: 01/25/18 21:31 Dose: 20 mg - Objective Vital Signs: Vital Signs Temperature 98.1 F 01/26/18 10:00 Pulse Rate 81 01/26/18 10:00 Respiratory Rate 18 01/26/18 10:00 Blood Pressure 119/49 01/26/18 10:00 O2 Sat by Pulse Oximetry (%) 95 01/25/18 21:00 Constitutional: Yes: Well Nourished, Calm Eyes: Yes: WNL HENT: Yes: WNL Neck: Yes: WNL Cardiovascular: Yes: Regular Rate and Rhythm, S1, S2 Respiratory: Yes: Rales, Rhonchi (MAEVE CRACKLES AND SCATTERED RHONCHI) Gastrointestinal: Yes: Normal Bowel Sounds, Soft Extremities: Yes: WNL Edema: No - ....Imaging Chest X-ray: Report Reviewed, Image Reviewed Assessment/Plan Problem List - Problems (1) Pneumonia Code(s): J18.9 - PNEUMONIA, UNSPECIFIED ORGANISM Qualifiers: (2) Cough Code(s): R05 - COUGH (3) Asthma Code(s): J45.909 - UNSPECIFIED ASTHMA, UNCOMPLICATED Qualifiers: Asthma severity: unspecified severity Asthma complication type: uncomplicated (4) Anemia Code(s): D64.9 - ANEMIA, UNSPECIFIED (5) Anxiety Code(s): F41.9 - ANXIETY DISORDER, UNSPECIFIED (6) Chronic ischemic heart disease Code(s): I25.9 - CHRONIC ISCHEMIC HEART DISEASE, UNSPECIFIED (7) Cirrhosis of liver Code(s): K74.60 - UNSPECIFIED CIRRHOSIS OF LIVER Qualifiers: Hepatic cirrhosis type: alcoholic cirrhosis Ascites presence: without ascites Qualified Code(s): K70.30 - Alcoholic cirrhosis of liver without ascites (8) Coronary artery disease Code(s): I25.10 - ATHSCL HEART DISEASE OF [place] CORONARY ARTERY W/O ANG PCTRS Qualifiers: Coronary Disease-Associated Artery/Lesion type: [place] artery [place] vs. transplanted heart: [place] heart Associated angina: without angina Qualified Code(s): I25.10 - Atherosclerotic heart disease of [place] coronary artery without angina pectoris (9) Depression Code(s): F32.9 - MAJOR DEPRESSIVE DISORDER, SINGLE EPISODE, UNSPECIFIED (10) Diabetes Code(s): E11.9 - TYPE 2 DIABETES MELLITUS WITHOUT COMPLICATIONS (11) Dyspnea Code(s): R06.00 - DYSPNEA, UNSPECIFIED Qualifiers: Dyspnea type: shortness of breath Qualified Code(s): R06.02 - Shortness of breath (12) Hyperlipidemia Code(s): E78.5 - HYPERLIPIDEMIA, UNSPECIFIED Qualifiers: Hyperlipidemia type: pure hypercholesterolemia Qualified Code(s): E78.00 - Pure hypercholesterolemia, unspecified; E78.0 - Pure hypercholesterolemia (13) Hypertension Code(s): I10 - ESSENTIAL (PRIMARY) HYPERTENSION (14) S/P coronary artery stent placement Code(s): Z95.5 - PRESENCE OF CORONARY ANGIOPLASTY IMPLANT AND GRAFT Assessment/Plan LUCILLE previously diagnosed in 2016: unclear if she received treatment ABX as per ID O2 as needed Check sputum AFB DR WESLEY
--- NOTE | 2018-01-26 14:09 | PN ---
Progress Note, Physician History of Present Illness: Awake, alert Seated in bed C/O cough productive of yellowish sputum No c/o chest pain Breathing non-labored on nasal cannula Afebrile - Current Medication List Current Medications: Active Medications Albuterol/Ipratropium (Duoneb -) 1 amp NEB Q6H PRN PRN Reason: SHORTNESS OF BREATH Last Admin: 01/25/18 19:12 Dose: 1 amp Amlodipine Besylate (Norvasc -) 5 mg PO DAILY [facility] Last Admin: 01/26/18 10:18 Dose: 5 mg Aspirin (Asa -) 81 mg PO DAILY [facility] Last Admin: 01/26/18 10:18 Dose: 81 mg Escitalopram Oxalate (Lexapro -) 10 mg PO DAILY [facility] Last Admin: 01/26/18 10:18 Dose: 10 mg Eucalyptus/Menthol/Phenol/Sorbitol (Cepastat Lozenge -) 1 each MM Q4H PRN PRN Reason: SORE THROAT Last Admin: 01/26/18 10:18 Dose: 1 each Fludrocortisone Acetate (Florinef -) 0.1 mg PO DAILY [facility] Last Admin: 01/26/18 10:18 Dose: 0.1 mg Heparin Sodium (Porcine) (Heparin -) 5,000 unit SQ BID [facility] Last Admin: 01/26/18 10:18 Dose: 5,000 unit Aztreonam 1 gm/ Dextrose 50 mls @ 100 mls/hr IVPB Q8H-IV [facility]; Protocol Last Admin: 01/26/18 10:18 Dose: 100 mls/hr Vancomycin HCl 1,000 mg/ (Dextrose) 250 mls @ 166.667 mls/hr IVPB BID@0100, 1300 [facility]; Protocol Last Admin: 01/26/18 12:20 Dose: 166.667 mls/hr Insulin Aspart (Novolog Vial Sliding Scale -) 1 vial SQ ACHS [facility]; Protocol Last Admin: 01/26/18 11:42 Dose: 2 unit Losartan Potassium (Cozaar -) 25 mg PO DAILY [facility] Last Admin: 01/26/18 10:18 Dose: 25 mg Nadolol (Corgard -) 20 mg PO DAILY [facility] Last Admin: 01/26/18 10:18 Dose: 20 mg Non-Formulary Medication (Fluticasone Furoate [Arnuity Ellipta]) 100 mcg IH DAILY [facility] Pantoprazole Sodium (Protonix -) 40 mg PO DAILY [facility] Last Admin: 01/26/18 10:18 Dose: 40 mg Rosuvastatin Calcium (Crestor -) 20 mg PO HS [facility] Last Admin: 01/25/18 21:31 Dose: 20 mg - Objective Vital Signs: Vital Signs Temperature 98.1 F 01/26/18 10:00 Pulse Rate 81 01/26/18 10:00 Respiratory Rate 18 01/26/18 10:00 Blood Pressure 119/49 01/26/18 10:00 O2 Sat by Pulse Oximetry (%) 96 01/26/18 09:00 Constitutional: Yes: No Distress Eyes: Yes: Conjunctiva Clear Cardiovascular: Yes: Regular Rate and Rhythm, S1, S2 Respiratory: Yes: Other (+ bilateral crepitations and rhonchi) Gastrointestinal: Yes: Normal Bowel Sounds, Soft. 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
--- NOTE | 2018-01-26 16:46 | PN ---
Progress Note (short form) - Note Progress Note: s: feels better today. no chest pain today. breathing better, has cough. no palps, dizziness, lightheadedness o: Current Medications Albuterol/Ipratropium (Duoneb -) 1 amp NEB Q6H PRN PRN Reason: SHORTNESS OF BREATH Last Admin: 01/25/18 19:12 Dose: 1 amp Amlodipine Besylate (Norvasc -) 5 mg PO DAILY [facility] Last Admin: 01/26/18 10:18 Dose: 5 mg Aspirin (Asa -) 81 mg PO DAILY [facility] Last Admin: 01/26/18 10:18 Dose: 81 mg Escitalopram Oxalate (Lexapro -) 10 mg PO DAILY [facility] Last Admin: 01/26/18 10:18 Dose: 10 mg Eucalyptus/Menthol/Phenol/Sorbitol (Cepastat Lozenge -) 1 each MM Q4H PRN PRN Reason: SORE THROAT Last Admin: 01/26/18 10:18 Dose: 1 each Fludrocortisone Acetate (Florinef -) 0.1 mg PO DAILY [facility] Last Admin: 01/26/18 10:18 Dose: 0.1 mg Heparin Sodium (Porcine) (Heparin -) 5,000 unit SQ BID [facility] Last Admin: 01/26/18 10:18 Dose: 5,000 unit Aztreonam 1 gm/ Dextrose 50 mls @ 100 mls/hr IVPB Q8H-IV [facility]; Protocol Last Admin: 01/26/18 10:18 Dose: 100 mls/hr Vancomycin HCl 1,000 mg/ (Dextrose) 250 mls @ 166.667 mls/hr IVPB BID@0100, 1300 [facility]; Protocol Last Admin: 01/26/18 12:20 Dose: 166.667 mls/hr Insulin Aspart (Novolog Vial Sliding Scale -) 1 vial SQ ACHS [facility]; Protocol Last Admin: 01/26/18 11:42 Dose: 2 unit Losartan Potassium (Cozaar -) 25 mg PO DAILY [facility] Last Admin: 01/26/18 10:18 Dose: 25 mg Nadolol (Corgard -) 20 mg PO DAILY [facility] Last Admin: 01/26/18 10:18 Dose: 20 mg Non-Formulary Medication (Fluticasone Furoate [Arnuity Ellipta]) 100 mcg IH DAILY [facility] Pantoprazole Sodium (Protonix -) 40 mg PO DAILY [facility] Last Admin: 01/26/18 10:18 Dose: 40 mg Rosuvastatin Calcium (Crestor -) 20 mg PO HS [facility] Last Admin: 01/25/18 21:31 Dose: 20 mg Vital Signs: Vital Signs Period Temp Pulse Resp BP Sys/Donovan Pulse Ox Last 24 Hr 97.5 F-98.7 F 64-98 18-22 116-137/49-81 95-96 Constitutional: Yes: Well Nourished, No Distress, Calm Eyes: Yes: WNL HENT: Yes: Atraumatic, Normocephalic Neck: Yes: Supple, Trachea Midline Respiratory: Yes: CTA Bilaterally, On Nasal O2 Gastrointestinal: Yes: Normal Bowel Sounds, Soft Renal/: Yes: WNL Cardiovascular: Yes: Regular Rate and Rhythm JVD: No Heart Sounds: Yes: S1, S2 Edema: No Peripheral Pulses WNL: Yes Peripheral Pulses: 2+ Left Doralis Pedis, 2+ Right Dorsalis Pedis Integumentary: Yes: WNL Neurological: Yes: Alert, Oriented ...Motor Strength: WNL Psychiatric: Yes: Alert, Oriented Assessment/Plan EKG: sinus rhythm, TWI anterior leads CXR: mild congestion, chronic interstitial changes echo 12/2015: nl lv/rv, mod-sev tr, rvsp 37 echo 08/2017: nl lv/rv, mild mr, mod tr, mod ar mibi 02/2017: nl mpi, nl lvef CT chest 01/2018 bronchiectasis and ground glass opacification unchanged since 2017, advanced hepatocellular disease a/p: 77 yo with hx dm, htn, hld, cvas/tias, cad s/p remote pci in P.R., cirrhosis (etoh cirrhosis with varices s/p banding by dr park), breast ca 12/2014, here with shortness of breath, chest pain Dyspnea, ILD, COPD - treating empirically for PNA per primary team - CXR shows mild congestion/chronic interstitial changes - received lasix 40 mg IV times one 01/25, now appears euvolemic, holding diuretics - pulm and ID following, on IV abx sputum AFB pending chest pain - likely pleuritic from cough, now resolved, cough improving - trop negative, EKG with new TWI compared to prior however given clinical picture not concerning for ischemia Cirrhosis of liver -sec to prior etoh abuse -no signs of bleeding on asa -on nadolol, h/o varices mod-sev tr - no signs right heart failure on exam - rv normal on echo and no sig pulm htn 08/2017 - monitor clinically Hypertension -on home nadolol, cozaar, amlodipine Chronic ischemic heart disease/cad s/p remote pci in P.R. ([facility]) -patent prior stent in [facility] and no sig residual dz on cath 10/2011 -no ischemia on recent mibi -no signs acs here -cont nadolol (on for portal htn) -cont asa, statin (previously cleared for statin by GI/liver, LFTs had been stable as outpt, remain stable here)
[2018-01-26] MEDS ORDERED: ROSUVASTATIN CA 10 MG TABLET (FP) ONE (20:57)
[2018-01-26] MEDS: ROSUVASTATIN CA 20 MG TABLET (FP) PO SCH (21:39)
[2018-01-27] MEDS: VANCOMYCIN 1,000 MG in DEXTROSE 5%-WATER - 250 ML IVPB SCH ×2 (00:11→13:40)
[2018-01-27] MEDS: AZTREONAM 1 GM in DEXTROSE 5%-WATER - 50 ML IVPB SCH ×3 (02:28→17:46)
[2018-01-27] MEDS: INSULIN SLIDING SCALE (NOVOLOG) 1 VIAL SQ SCH ×4 (06:18→21:44)
[2018-01-27] MEDS ORDERED: PT OWN MED DRAWER 7, Y5N ONE ×3 (10:02→13:38)
[2018-01-27] MEDS: HEPARIN NA (PORCINE) 5,000 UNITS/ML 1ML VIAL SQ SCH ×2 (10:05→21:44)
[2018-01-27] MEDS: ESCITALOPRAM OXALATE 10 MG TABLET (FP) PO SCH (10:06)
[2018-01-27] MEDS: ASPIRIN 81 MG CHEWABLE TABLETS PO SCH (10:06)
[2018-01-27] MEDS: NADOLOL 20 MG TABLET (FP) PO SCH (10:06)
[2018-01-27] MEDS: PANTOPRAZOLE 40 MG TABLET (FP) PO SCH (10:06)
[2018-01-27] MEDS: amLODIPine BESYLATE 5 MG TABLET (FP) PO SCH (10:06)
[2018-01-27] MEDS: FLUDROCORTISONE ACETATE 0.1 MG TABLET (FP) PO SCH (11:19)
[2018-01-27] MEDS: LOSARTAN POTASSIUM 25 MG TABLET PO SCH (11:19)
--- NOTE | 2018-01-27 12:07 | PN ---
Progress Note, Physician Chief Complaint: AWAKE ALERT FEELING BETTER - Current Medication List Current Medications: Active Medications Albuterol/Ipratropium (Duoneb -) 1 amp NEB Q6H PRN PRN Reason: SHORTNESS OF BREATH Last Admin: 01/25/18 19:12 Dose: 1 amp Amlodipine Besylate (Norvasc -) 5 mg PO DAILY [facility] Last Admin: 01/27/18 10:06 Dose: 5 mg Aspirin (Asa -) 81 mg PO DAILY [facility] Last Admin: 01/27/18 10:06 Dose: 81 mg Escitalopram Oxalate (Lexapro -) 10 mg PO DAILY [facility] Last Admin: 01/27/18 10:06 Dose: 10 mg Eucalyptus/Menthol/Phenol/Sorbitol (Cepastat Lozenge -) 1 each MM Q4H PRN PRN Reason: SORE THROAT Last Admin: 01/26/18 10:18 Dose: 1 each Fludrocortisone Acetate (Florinef -) 0.1 mg PO DAILY [facility] Last Admin: 01/27/18 11:19 Dose: 0.1 mg Heparin Sodium (Porcine) (Heparin -) 5,000 unit SQ BID [facility] Last Admin: 01/27/18 10:05 Dose: 5,000 unit Aztreonam 1 gm/ Dextrose 50 mls @ 100 mls/hr IVPB Q8H-IV [facility]; Protocol Last Admin: 01/27/18 10:06 Dose: 100 mls/hr Vancomycin HCl 1,000 mg/ (Dextrose) 250 mls @ 166.667 mls/hr IVPB BID@0100, 1300 [facility]; Protocol Last Admin: 01/27/18 00:11 Dose: 166.667 mls/hr Insulin Aspart (Novolog Vial Sliding Scale -) 1 vial SQ ACHS [facility]; Protocol Last Admin: 01/27/18 11:47 Dose: 2 unit Losartan Potassium (Cozaar -) 25 mg PO DAILY [facility] Last Admin: 01/27/18 11:19 Dose: 25 mg Nadolol (Corgard -) 20 mg PO DAILY [facility] Last Admin: 01/27/18 10:06 Dose: 20 mg Non-Formulary Medication (Fluticasone Furoate [Arnuity Ellipta]) 100 mcg IH DAILY [facility] Pantoprazole Sodium (Protonix -) 40 mg PO DAILY [facility] Last Admin: 09/21/18 10:06 Dose: 40 mg Rosuvastatin Calcium (Crestor -) 20 mg PO HS [facility] Last Admin: 01/26/18 21:39 Dose: 20 mg - Objective Vital Signs: Vital Signs Temperature 98.0 F 01/27/18 10:00 Pulse Rate 68 01/27/18 10:00 Respiratory Rate 16 01/27/18 10:00 Blood Pressure 117/57 L 01/27/18 10:00 O2 Sat by Pulse Oximetry (%) 96 01/26/18 21:00 Constitutional: Yes: Mild Distress Eyes: Yes: WNL HENT: Yes: WNL Neck: Yes: WNL Cardiovascular: Yes: WNL Respiratory: Yes: Diminished, On Nasal O2 Gastrointestinal: Yes: WNL Genitourinary: Yes: WNL Musculoskeletal: Yes: WNL Extremities: Yes: WNL Edema: No Peripheral Pulses WNL: Yes Integumentary: Yes: WNL Wound/Incision: Yes: Clean/Dry Neurological: Yes: WNL ...Motor Strength: WNL Psychiatric: Yes: WNL Labs: CBC, BMP 01/25/18 07:10 01/25/18 07:10 INR, PTT INR 1.27 (0.83-1.09) H 01/24/18 16:30 Problem List - Problems (1) Pneumonia Code(s): J18.9 - PNEUMONIA, UNSPECIFIED ORGANISM Qualifiers: (2) Anemia Code(s): D64.9 - ANEMIA, UNSPECIFIED (3) Angina pectoris Code(s): I20.9 - ANGINA PECTORIS, UNSPECIFIED (4) Anxiety Code(s): F41.9 - ANXIETY DISORDER, UNSPECIFIED (5) Asthma Code(s): J45.909 - UNSPECIFIED ASTHMA, UNCOMPLICATED Qualifiers: Asthma severity: unspecified severity Asthma complication type: uncomplicated (6) Hyperlipidemia Code(s): E78.5 - HYPERLIPIDEMIA, UNSPECIFIED Qualifiers: Hyperlipidemia type: pure hypercholesterolemia Qualified Code(s): E78.00 - Pure hypercholesterolemia, unspecified; E78.0 - Pure hypercholesterolemia (7) Hypertension Code(s): I10 - ESSENTIAL (PRIMARY) HYPERTENSION (8) S/P coronary artery stent placement Code(s): Z95.5 - PRESENCE OF CORONARY ANGIOPLASTY IMPLANT AND GRAFT Assessment/Plan IV ABX IV LASIX, CT SCAN SHOWS CHF ALSO 02 NC 2L PULM/ID/CARDIO CONSULT OOB TO CHAIR DVT PROPHYLAXIS SNF PLACEMENT
--- NOTE | 2018-01-27 15:18 | PN ---
Progress Note, Physician History of Present Illness: pulmonary alert,no distress,-dyspnea - Current Medication List Current Medications: Active Medications Albuterol/Ipratropium (Duoneb -) 1 amp NEB Q6H PRN PRN Reason: SHORTNESS OF BREATH Last Admin: 01/25/18 19:12 Dose: 1 amp Amlodipine Besylate (Norvasc -) 5 mg PO DAILY [facility] Last Admin: 01/27/18 10:06 Dose: 5 mg Aspirin (Asa -) 81 mg PO DAILY [facility] Last Admin: 01/27/18 10:06 Dose: 81 mg Escitalopram Oxalate (Lexapro -) 10 mg PO DAILY [facility] Last Admin: 01/27/18 10:06 Dose: 10 mg Eucalyptus/Menthol/Phenol/Sorbitol (Cepastat Lozenge -) 1 each MM Q4H PRN PRN Reason: SORE THROAT Last Admin: 01/26/18 10:18 Dose: 1 each Fludrocortisone Acetate (Florinef -) 0.1 mg PO DAILY [facility] Last Admin: 01/27/18 11:19 Dose: 0.1 mg Heparin Sodium (Porcine) (Heparin -) 5,000 unit SQ BID [facility] Last Admin: 01/27/18 10:05 Dose: 5,000 unit Aztreonam 1 gm/ Dextrose 50 mls @ 100 mls/hr IVPB Q8H-IV [facility]; Protocol Last Admin: 01/27/18 10:06 Dose: 100 mls/hr Vancomycin HCl 1,000 mg/ (Dextrose) 250 mls @ 166.667 mls/hr IVPB BID@0100, 1300 [facility]; Protocol Last Admin: 01/27/18 13:40 Dose: 166.667 mls/hr Insulin Aspart (Novolog Vial Sliding Scale -) 1 vial SQ ACHS [facility]; Protocol Last Admin: 01/27/18 11:47 Dose: 2 unit Losartan Potassium (Cozaar -) 25 mg PO DAILY [facility] Last Admin: 01/27/18 11:19 Dose: 25 mg Nadolol (Corgard -) 20 mg PO DAILY [facility] Last Admin: 01/27/18 10:06 Dose: 20 mg Non-Formulary Medication (Fluticasone Furoate [Arnuity Ellipta]) 100 mcg IH DAILY [facility] Pantoprazole Sodium (Protonix -) 40 mg PO DAILY [facility] Last Admin: 01/27/18 10:06 Dose: 40 mg Rosuvastatin Calcium (Crestor -) 20 mg PO HS [facility] Last Admin: 01/26/18 21:39 Dose: 20 mg - Objective Vital Signs: Vital Signs Temperature 98.3 F 01/27/18 14:45 Pulse Rate 63 01/27/18 14:45 Respiratory Rate 16 01/27/18 14:45 Blood Pressure 120/59 L 01/27/18 14:45 O2 Sat by Pulse Oximetry (%) 96 01/26/18 21:00 Constitutional: Yes: Well Nourished, Calm Eyes: Yes: WNL HENT: Yes: WNL Neck: Yes: WNL Cardiovascular: Yes: Regular Rate and Rhythm, S1, S2 Respiratory: Yes: Wheezes (few wheezes) Gastrointestinal: Yes: Normal Bowel Sounds, Soft Extremities: Yes: WNL Edema: No Labs: CBC, BMP Assessment/Plan Problem List - Problems (1) Pneumonia Code(s): J18.9 - PNEUMONIA, UNSPECIFIED ORGANISM Qualifiers: (2) Cough Code(s): R05 - COUGH (3) Asthma Code(s): J45.909 - UNSPECIFIED ASTHMA, UNCOMPLICATED Qualifiers: Asthma severity: unspecified severity Asthma complication type: uncomplicated (4) Anemia Code(s): D64.9 - ANEMIA, UNSPECIFIED (5) Anxiety Code(s): F41.9 - ANXIETY DISORDER, UNSPECIFIED (6) Chronic ischemic heart disease Code(s): I25.9 - CHRONIC ISCHEMIC HEART DISEASE, UNSPECIFIED (7) Cirrhosis of liver Code(s): K74.60 - UNSPECIFIED CIRRHOSIS OF LIVER Qualifiers: Hepatic cirrhosis type: alcoholic cirrhosis Ascites presence: without ascites Qualified Code(s): K70.30 - Alcoholic cirrhosis of liver without ascites (8) Coronary artery disease Code(s): I25.10 - ATHSCL HEART DISEASE OF [place] CORONARY ARTERY W/O ANG PCTRS Qualifiers: Coronary Disease-Associated Artery/Lesion type: [place] artery [place] vs. transplanted heart: [place] heart Associated angina: without angina Qualified Code(s): I25.10 - Atherosclerotic heart disease of [place] coronary artery without angina pectoris (9) Depression Code(s): F32.9 - MAJOR DEPRESSIVE DISORDER, SINGLE EPISODE, UNSPECIFIED (10) Diabetes Code(s): E11.9 - TYPE 2 DIABETES MELLITUS WITHOUT COMPLICATIONS (11) Dyspnea Code(s): R06.00 - DYSPNEA, UNSPECIFIED Qualifiers: Dyspnea type: shortness of breath Qualified Code(s): R06.02 - Shortness of breath (12) Hyperlipidemia Code(s): E78.5 - HYPERLIPIDEMIA, UNSPECIFIED Qualifiers: Hyperlipidemia type: pure hypercholesterolemia Qualified Code(s): E78.00 - Pure hypercholesterolemia, unspecified; E78.0 - Pure hypercholesterolemia (13) Hypertension Code(s): I10 - ESSENTIAL (PRIMARY) HYPERTENSION (14) S/P coronary artery stent placement Code(s): Z95.5 - PRESENCE OF CORONARY ANGIOPLASTY IMPLANT AND GRAFT Assessment/Plan [place]UC[place]LE previously diagnosed in 2016: unclear if she received treatment ABX as per ID O2 as needed Check sputum AFB DR WESLEY
--- NOTE | 2018-01-27 15:21 | PN ---
Progress Note (short form) - Note Progress Note: s: still has cough, stable dyspnea. no cp, palps, dizziness, lightheadedness o: Current Medications Albuterol/Ipratropium (Duoneb -) 1 amp NEB Q6H PRN PRN Reason: SHORTNESS OF BREATH Last Admin: 01/25/18 19:12 Dose: 1 amp Amlodipine Besylate (Norvasc -) 5 mg PO DAILY [facility] Last Admin: 01/27/18 10:06 Dose: 5 mg Aspirin (Asa -) 81 mg PO DAILY [facility] Last Admin: 01/27/18 10:06 Dose: 81 mg Escitalopram Oxalate (Lexapro -) 10 mg PO DAILY [facility] Last Admin: 01/27/18 10:06 Dose: 10 mg Eucalyptus/Menthol/Phenol/Sorbitol (Cepastat Lozenge -) 1 each MM Q4H PRN PRN Reason: SORE THROAT Last Admin: 01/26/18 10:18 Dose: 1 each Fludrocortisone Acetate (Florinef -) 0.1 mg PO DAILY [facility] Last Admin: 01/27/18 11:19 Dose: 0.1 mg Heparin Sodium (Porcine) (Heparin -) 5,000 unit SQ BID [facility] Last Admin: 01/27/18 10:05 Dose: 5,000 unit Aztreonam 1 gm/ Dextrose 50 mls @ 100 mls/hr IVPB Q8H-IV [facility]; Protocol Last Admin: 01/27/18 10:06 Dose: 100 mls/hr Vancomycin HCl 1,000 mg/ (Dextrose) 250 mls @ 166.667 mls/hr IVPB BID@0100, 1300 [facility]; Protocol Last Admin: 01/27/18 13:40 Dose: 166.667 mls/hr Insulin Aspart (Novolog Vial Sliding Scale -) 1 vial SQ ACHS [facility]; Protocol Last Admin: 01/27/18 11:47 Dose: 2 unit Losartan Potassium (Cozaar -) 25 mg PO DAILY [facility] Last Admin: 01/27/18 11:19 Dose: 25 mg Nadolol (Corgard -) 20 mg PO DAILY [facility] Last Admin: 01/27/18 10:06 Dose: 20 mg Non-Formulary Medication (Fluticasone Furoate [Arnuity Ellipta]) 100 mcg IH DAILY [facility] Pantoprazole Sodium (Protonix -) 40 mg PO DAILY [facility] Last Admin: 01/27/18 10:06 Dose: 40 mg Rosuvastatin Calcium (Crestor -) 20 mg PO HS [facility] Last Admin: 01/26/18 21:39 Dose: 20 mg Vital Signs: Vital Signs Period Temp Pulse Resp BP Sys/Donovan Pulse Ox Last 24 Hr 98.0 F-98.4 F 62-77 16-20 110-134/57-78 96 Constitutional: Yes: Well Nourished, No Distress, Calm Eyes: Yes: WNL HENT: Yes: Atraumatic, Normocephalic Neck: Yes: Supple, Trachea Midline Respiratory: Yes: CTA Bilaterally Gastrointestinal: Yes: Normal Bowel Sounds, Soft Renal/: Yes: WNL Cardiovascular: Yes: Regular Rate and Rhythm JVD: No Heart Sounds: Yes: S1, S2 Edema: No Peripheral Pulses WNL: Yes Peripheral Pulses: 2+ Left Doralis Pedis, 2+ Right Dorsalis Pedis Integumentary: Yes: WNL Neurological: Yes: Alert, Oriented ...Motor Strength: WNL Psychiatric: Yes: Alert, Oriented Assessment/Plan EKG: sinus rhythm, TWI anterior leads CXR: mild congestion, chronic interstitial changes echo 12/2015: nl lv/rv, mod-sev tr, rvsp 37 echo 08/2017: nl lv/rv, mild mr, mod tr, mod ar mibi 02/2017: nl mpi, nl lvef CT chest 01/2018 bronchiectasis and ground glass opacification unchanged since 2017, advanced hepatocellular disease a/p: 77 yo with hx dm, htn, hld, cvas/tias, cad s/p remote pci in P.R., cirrhosis (etoh cirrhosis with varices s/p banding by dr park), breast ca 12/2014, here with shortness of breath, chest pain Dyspnea, ILD, COPD - treating empirically for PNA per primary team - CXR shows mild congestion/chronic interstitial changes - received lasix 40 mg IV times one 01/25, remains euvolemic, holding diuretics - pulm and ID following, on IV abx chest pain - likely pleuritic from cough, now resolved, cough improving - trop negative, EKG with new TWI compared to prior however given clinical picture not concerning for ischemia Cirrhosis of liver -sec to prior etoh abuse -no signs of bleeding on asa -on nadolol, h/o varices mod-sev tr - no signs right heart failure on exam - rv normal on echo and no sig pulm htn 08/2017 - monitor clinically Hypertension -on home nadolol, cozaar, amlodipine Chronic ischemic heart disease/cad s/p remote pci in P.R. ([facility]) -patent prior stent in [facility] and no sig residual dz on cath 10/2011 -no ischemia on recent mibi -no signs acs here -cont nadolol (on for portal htn) -cont asa, statin (previously cleared for statin by GI/liver, LFTs had been stable as outpt, remain stable here)
[2018-01-27] MEDS ORDERED: INSULIN (NOVOLOG) ASPART 100 UNITS/ML 10ML VIAL ONE (16:57)
[2018-01-27] MEDS: ALBUTEROL SO4 2.5/IPRATROPIUM 0.5 INH SOL 3 ML VIAL.NEB. NEB PRN (20:40)
[2018-01-27] MEDS ORDERED: ROSUVASTATIN CA 10 MG TABLET (FP) ONE (21:04)
[2018-01-27] MEDS: ROSUVASTATIN CA 20 MG TABLET (FP) PO SCH (21:44)
[2018-01-28] MEDS ORDERED: PT OWN MED DRAWER 7, Y5N ONE ×2 (00:55→09:50)
[2018-01-28] MEDS: AZTREONAM 1 GM in DEXTROSE 5%-WATER - 50 ML IVPB SCH ×3 (01:35→17:20)
[2018-01-28] MEDS: INSULIN SLIDING SCALE (NOVOLOG) 1 VIAL SQ SCH (06:04)
[2018-01-28 06:52] LABS: HEMATOCRIT 37.8 % (32.4-45.2); HEMOGLOBIN 13.1 GM/dL (10.7-15.3); MCH 30.9 pg (25.7-33.7); MCHC 34.6 g/dl (32.0-36.0); MEAN CELL VOLUME 89.5 fl (80-96); MEAN PLT VOLUME 8.1 fl (7.5-11.1); PLATELET COUNT 127 K/MM3 (134-434); RBC 4.22 M/mm3 (3.60-5.2); RDW 14.4 % (11.6-15.6); WHITE BLOOD COUNT 6.5 K/mm3 (4.0-10.0)
[2018-01-28 07:26] LABS: ANION GAP 6 MMOL/L (8-16); BLOOD UREA NITROGEN 6 mg/dL (7-18); CALCIUM 8.3 mg/dL (8.5-10.1); CHLORIDE 110 mmol/L (98-107); CO2 28 mmol/L (21-32); CREATININE 0.6 mg/dL (0.55-1.3); GLUCOSE,RANDOM 115 mg/dL (74-106); POTASSIUM 3.4 mmol/L (3.5-5.1); SODIUM 143 mmol/L (136-145)
[2018-01-28] MEDS ORDERED: ACETAMINOPHEN 325 MG TABLET (FP) PO PRN (07:52)
[2018-01-28] MEDS ORDERED: POTASSIUM CHLORIDE ORAL LIQUID 20 MEQ/15 ML PO ONE (07:53)
[2018-01-28] MEDS: FLUTICASONE FUROATE 100 MCG IH SCH (07:54)
--- NOTE | 2018-01-28 08:02 | PN ---
Progress Note, Physician Chief Complaint: Pneumonia History of Present Illness: NAD in bed c/o headache self ambulatory afebrile Seen by ID, pulmonary and Cardiology on IV Vancomycin and Aztreonam On bronchodilators - Current Medication List Current Medications: Active Medications Acetaminophen (Tylenol -) 650 mg PO Q4H PRN PRN Reason: PAIN OR FEVER Albuterol/Ipratropium (Duoneb -) 1 amp NEB Q6H PRN PRN Reason: SHORTNESS OF BREATH Last Admin: 01/27/18 20:40 Dose: 1 amp Amlodipine Besylate (Norvasc -) 5 mg PO DAILY [facility] Last Admin: 01/27/18 10:06 Dose: 5 mg Aspirin (Asa -) 81 mg PO DAILY [facility] Last Admin: 01/27/18 10:06 Dose: 81 mg Escitalopram Oxalate (Lexapro -) 10 mg PO DAILY [facility] Last Admin: 01/27/18 10:06 Dose: 10 mg Eucalyptus/Menthol/Phenol/Sorbitol (Cepastat Lozenge -) 1 each MM Q4H PRN PRN Reason: SORE THROAT Last Admin: 01/26/18 10:18 Dose: 1 each Fludrocortisone Acetate (Florinef -) 0.1 mg PO DAILY [facility] Last Admin: 01/27/18 11:19 Dose: 0.1 mg Heparin Sodium (Porcine) (Heparin -) 5,000 unit SQ BID [facility] Last Admin: 01/27/18 21:44 Dose: 5,000 unit Aztreonam 1 gm/ Dextrose 50 mls @ 100 mls/hr IVPB Q8H-IV [facility]; Protocol Last Admin: 01/28/18 01:35 Dose: 100 mls/hr Vancomycin HCl 1,000 mg/ (Dextrose) 250 mls @ 166.667 mls/hr IVPB DAILY@1300 [facility]; Protocol Insulin Aspart (Novolog Vial Sliding Scale -) 1 vial SQ ACHS [facility]; Protocol Last Admin: 01/28/18 06:04 Dose: Not Given Losartan Potassium (Cozaar -) 25 mg PO DAILY [facility] Last Admin: 01/27/18 11:19 Dose: 25 mg Nadolol (Corgard -) 20 mg PO DAILY [facility] Last Admin: 01/27/18 10:06 Dose: 20 mg Pantoprazole Sodium (Protonix -) 40 mg PO DAILY [facility] Last Admin: 01/27/18 10:06 Dose: 40 mg Potassium Chloride (Potassium Chloride Oral Liquid) 40 meq PO ONCE ONE Stop: 01/28/18 07:54 Rosuvastatin Calcium (Crestor -) 20 mg PO HS [facility] Last Admin: 01/27/18 21:44 Dose: 20 mg - Objective Vital Signs: Vital Signs Temperature 98.5 F 01/28/18 06:00 Pulse Rate 68 01/28/18 06:00 Respiratory Rate 20 01/28/18 06:00 Blood Pressure 109/62 01/28/18 06:00 O2 Sat by Pulse Oximetry (%) 97 01/27/18 21:00 Constitutional: Yes: Well Nourished, No Distress, Calm Cardiovascular: Yes: Regular Rate and Rhythm, Murmur (Grade III/) Respiratory: Yes: Regular, Rales (BLLE) Gastrointestinal: Yes: Normal Bowel Sounds, Soft Musculoskeletal: Yes: WNL Extremities: Yes: WNL Edema: No Peripheral Pulses WNL: Yes Neurological: Yes: Alert, Oriented Psychiatric: Yes: Alert, Oriented Labs: CBC, BMP 01/28/18 06:30 01/28/18 06:30 INR, PTT INR 1.27 (0.83-1.09) H 01/24/18 16:30 Problem List - Problems (1) Pneumonia Assessment/Plan: -Repeat CXR -On bronchodilators -Continue IV abx -Steroid not indicated at this time -Nasal O 2 PRN, maintain SpO2> 90% -Pulmonary on board -Add pulmicort 0.25 mg BID Code(s): J18.9 - PNEUMONIA, UNSPECIFIED ORGANISM Qualifiers: (2) Chronic ischemic heart disease Assessment/Plan: -Seen by cardiology: -patent prior stent in [facility] and no sig residual dz on cath 10/2011 -no ischemia on recent mibi -no signs acs here -cont nadolol (on for portal htn) -cont asa, statin (previously cleared for statin by GI/liver, LFTs had been stable as outpt, remain stable here) Code(s): I25.9 - CHRONIC ISCHEMIC HEART DISEASE, UNSPECIFIED (3) Diabetes Assessment/Plan: -A1C 6.5% -BGM AC HS- would d/c -Diabetic low sodium diet -Novolog insulin sliding scale-D/C -renal function is normal, would prefer PO hypoglycemics- start Januvia 100 mg po daily -RD consult Code(s): E11.9 - TYPE 2 DIABETES MELLITUS WITHOUT COMPLICATIONS (4) Hypertension Assessment/Plan: -On nadolol, amlodipine and losartan -On asa 81 mg po daily -Seen by Cardiology -Vitals stable Code(s): I10 - ESSENTIAL (PRIMARY) HYPERTENSION (5) Hypokalemia Assessment/Plan: -Kcl 40 meq once -repeat BMP in am Code(s): E87.6 - HYPOKALEMIA Assessment/Plan see problem list DVT prophylaxis Self ambulatory dispo: home once ready for discharge
[2018-01-28] MEDS ORDERED: ALBUTEROL SO4 0.083% IH SOL 2.5 MG/3 ML VIAL.NEB. NEB SCH (08:15)
[2018-01-28] MEDS: ALBUTEROL SO4 0.083% IH SOL 2.5 MG/3 ML VIAL.NEB. NEB SCH ×4 (09:46→21:39)
[2018-01-28] MEDS: BUDESONIDE 0.25 MG/2ML INH SUSP VIAL NEB SCH ×2 (09:46→20:34)
[2018-01-28] MEDS: NADOLOL 20 MG TABLET (FP) PO SCH (09:56)
[2018-01-28] MEDS: sitaGLIPtin PHOSPHATE 100 MG TABLET (FP) PO SCH (09:56)
[2018-01-28] MEDS: ASPIRIN 81 MG CHEWABLE TABLETS PO SCH (09:56)
[2018-01-28] MEDS: LOSARTAN POTASSIUM 25 MG TABLET PO SCH (09:56)
[2018-01-28] MEDS: amLODIPine BESYLATE 5 MG TABLET (FP) PO SCH (09:56)
[2018-01-28] MEDS: HEPARIN NA (PORCINE) 5,000 UNITS/ML 1ML VIAL SQ SCH ×2 (09:56→21:26)
[2018-01-28] MEDS: ESCITALOPRAM OXALATE 10 MG TABLET (FP) PO SCH (09:56)
[2018-01-28] MEDS: PANTOPRAZOLE 40 MG TABLET (FP) PO SCH (09:56)
[2018-01-28] MEDS: FLUDROCORTISONE ACETATE 0.1 MG TABLET (FP) PO SCH (10:03)
--- NOTE | 2018-01-28 12:01 | PN ---
Progress Note, Physician History of Present Illness: pulmonary alert,-resp distress,+ cough yellow sputum - Current Medication List Current Medications: Active Medications Acetaminophen (Tylenol -) 650 mg PO Q4H PRN PRN Reason: PAIN OR FEVER Last Admin: 01/28/18 08:50 Dose: 650 mg Albuterol Sulfate (Ventolin 0.083% Nebulizer Soln -) 1 amp NEB Q4H [facility] Last Admin: 01/28/18 09:46 Dose: 1 amp Amlodipine Besylate (Norvasc -) 5 mg PO DAILY [facility] Last Admin: 01/28/18 09:56 Dose: 5 mg Aspirin (Asa -) 81 mg PO DAILY [facility] Last Admin: 01/28/18 09:56 Dose: 81 mg Budesonide (Pulmicort 0.25 Mg Nebulizer -) 1 amp NEB RBID [facility] Last Admin: 01/28/18 09:46 Dose: 1 amp Escitalopram Oxalate (Lexapro -) 10 mg PO DAILY [facility] Last Admin: 01/28/18 09:56 Dose: 10 mg Eucalyptus/Menthol/Phenol/Sorbitol (Cepastat Lozenge -) 1 each MM Q4H PRN PRN Reason: SORE THROAT Last Admin: 01/26/18 10:18 Dose: 1 each Fludrocortisone Acetate (Florinef -) 0.1 mg PO DAILY [facility] Last Admin: 01/28/18 10:03 Dose: 0.1 mg Heparin Sodium (Porcine) (Heparin -) 5,000 unit SQ BID [facility] Last Admin: 01/28/18 09:56 Dose: 5,000 unit Aztreonam 1 gm/ Dextrose 50 mls @ 100 mls/hr IVPB Q8H-IV [facility]; Protocol Last Admin: 01/28/18 09:56 Dose: 100 mls/hr Vancomycin HCl 1,000 mg/ (Dextrose) 250 mls @ 166.667 mls/hr IVPB DAILY@1300 [facility]; Protocol Losartan Potassium (Cozaar -) 25 mg PO DAILY [facility] Last Admin: 01/28/18 09:56 Dose: 25 mg Nadolol (Corgard -) 20 mg PO DAILY [facility] Last Admin: 01/28/18 09:56 Dose: Not Given Pantoprazole Sodium (Protonix -) 40 mg PO DAILY [facility] Last Admin: 01/28/18 09:56 Dose: 40 mg Rosuvastatin Calcium (Crestor -) 20 mg PO HS [facility] Last Admin: 01/27/18 21:44 Dose: 20 mg Sitagliptin Phosphate (Januvia -) 100 mg PO DAILY@0700 [facility] Last Admin: 01/28/18 09:56 Dose: 100 mg - Objective Vital Signs: Vital Signs Temperature 97.6 F 01/28/18 10:00 Pulse Rate 58 L 01/28/18 10:00 Respiratory Rate 18 01/28/18 10:00 Blood Pressure 111/62 01/28/18 10:00 O2 Sat by Pulse Oximetry (%) 97 01/27/18 21:00 Constitutional: Yes: Well Nourished, Calm Eyes: Yes: WNL HENT: Yes: WNL Neck: Yes: WNL Cardiovascular: Yes: Regular Rate and Rhythm, S1, S2 Respiratory: Yes: Wheezes (few wheezes) Gastrointestinal: Yes: Normal Bowel Sounds, Soft Extremities: Yes: WNL Edema: No Labs: CBC, BMP 01/28/18 06:30 01/28/18 06:30 INR, PTT INR 1.27 (0.83-1.09) H 01/24/18 16:30 Assessment/Plan Problem List - Problems (1) Pneumonia Code(s): J18.9 - PNEUMONIA, UNSPECIFIED ORGANISM Qualifiers: (2) Cough Code(s): R05 - COUGH (3) Asthma Code(s): J45.909 - UNSPECIFIED ASTHMA, UNCOMPLICATED Qualifiers: Asthma severity: unspecified severity Asthma complication type: uncomplicated (4) Anemia Code(s): D64.9 - ANEMIA, UNSPECIFIED (5) Anxiety Code(s): F41.9 - ANXIETY DISORDER, UNSPECIFIED (6) Chronic ischemic heart disease Code(s): I25.9 - CHRONIC ISCHEMIC HEART DISEASE, UNSPECIFIED (7) Cirrhosis of liver Code(s): K74.60 - UNSPECIFIED CIRRHOSIS OF LIVER Qualifiers: Hepatic cirrhosis type: alcoholic cirrhosis Ascites presence: without ascites Qualified Code(s): K70.30 - Alcoholic cirrhosis of liver without ascites (8) Coronary artery disease Code(s): I25.10 - ATHSCL HEART DISEASE OF [place] CORONARY ARTERY W/O ANG PCTRS Qualifiers: Coronary Disease-Associated Artery/Lesion type: [place] artery [place] vs. transplanted heart: [place] heart Associated angina: without angina Qualified Code(s): I25.10 - Atherosclerotic heart disease of [place] coronary artery without angina pectoris (9) Depression Code(s): F32.9 - MAJOR DEPRESSIVE DISORDER, SINGLE EPISODE, UNSPECIFIED (10) Diabetes Code(s): E11.9 - TYPE 2 DIABETES MELLITUS WITHOUT COMPLICATIONS (11) Dyspnea Code(s): R06.00 - DYSPNEA, UNSPECIFIED Qualifiers: Dyspnea type: shortness of breath Qualified Code(s): R06.02 - Shortness of breath (12) Hyperlipidemia Code(s): E78.5 - HYPERLIPIDEMIA, UNSPECIFIED Qualifiers: Hyperlipidemia type: pure hypercholesterolemia Qualified Code(s): E78.00 - Pure hypercholesterolemia, unspecified; E78.0 - Pure hypercholesterolemia (13) Hypertension Code(s): I10 - ESSENTIAL (PRIMARY) HYPERTENSION (14) S/P coronary artery stent placement Code(s): Z95.5 - PRESENCE OF CORONARY ANGIOPLASTY IMPLANT AND GRAFT Assessment/Plan LUCILLE previously diagnosed in 2016: unclear if she received treatment ABX as per ID O2 as needed DR WESLEY
[2018-01-28] MEDS: VANCOMYCIN 1,000 MG in DEXTROSE 5%-WATER - 250 ML IVPB SCH (12:09)
[2018-01-28 13:50] VITALS: BMI 26.5
[2018-01-28] MEDS ORDERED: ROSUVASTATIN CA 10 MG TABLET (FP) ONE ×2 (20:51→21:28)
[2018-01-28] MEDS: ROSUVASTATIN CA 20 MG TABLET (FP) PO SCH (21:26)
[2018-01-29] MEDS: ALBUTEROL SO4 0.083% IH SOL 2.5 MG/3 ML VIAL.NEB. NEB SCH ×4 (02:10→13:51)
[2018-01-29] MEDS: AZTREONAM 1 GM in DEXTROSE 5%-WATER - 50 ML IVPB SCH ×3 (02:17→17:15)
[2018-01-29] MEDS ORDERED: PT OWN MED DRAWER 7, Y5N ONE ×3 (02:59→12:53)
[2018-01-29] MEDS: sitaGLIPtin PHOSPHATE 100 MG TABLET (FP) PO SCH (06:12)
[2018-01-29] MEDS ORDERED: INSULIN (NOVOLOG) ASPART 100 UNITS/ML 10ML VIAL ONE ×2 (06:54→21:43)
[2018-01-29] MEDS: BUDESONIDE 0.25 MG/2ML INH SUSP VIAL NEB SCH ×2 (07:30→19:54)
--- NOTE | 2018-01-29 07:51 | PN ---
Progress Note, Physician Chief Complaint: Pneumonia History of Present Illness: NAD in bed c/o headache self ambulatory afebrile Seen by ID, pulmonary and Cardiology on IV Vancomycin and Aztreonam On bronchodilators - Current Medication List Current Medications: Active Medications Acetaminophen (Tylenol -) 650 mg PO Q4H PRN PRN Reason: PAIN OR FEVER Last Admin: 01/28/18 08:50 Dose: 650 mg Albuterol Sulfate (Ventolin 0.083% Nebulizer Soln -) 1 amp NEB Q4H [facility] Last Admin: 01/29/18 06:20 Dose: 1 amp Amlodipine Besylate (Norvasc -) 5 mg PO DAILY [facility] Last Admin: 01/28/18 09:56 Dose: 5 mg Aspirin (Asa -) 81 mg PO DAILY [facility] Last Admin: 01/28/18 09:56 Dose: 81 mg Budesonide (Pulmicort 0.25 Mg Nebulizer -) 1 amp NEB RBID [facility] Last Admin: 01/28/18 20:34 Dose: 1 amp Escitalopram Oxalate (Lexapro -) 10 mg PO DAILY [facility] Last Admin: 01/28/18 09:56 Dose: 10 mg Eucalyptus/Menthol/Phenol/Sorbitol (Cepastat Lozenge -) 1 each MM Q4H PRN PRN Reason: SORE THROAT Last Admin: 01/26/18 10:18 Dose: 1 each Fludrocortisone Acetate (Florinef -) 0.1 mg PO DAILY [facility] Last Admin: 01/28/18 10:03 Dose: 0.1 mg Heparin Sodium (Porcine) (Heparin -) 5,000 unit SQ BID [facility] Last Admin: 01/28/18 21:26 Dose: 5,000 unit Aztreonam 1 gm/ Dextrose 50 mls @ 100 mls/hr IVPB Q8H-IV [facility]; Protocol Last Admin: 01/29/18 02:17 Dose: 100 mls/hr Vancomycin HCl 1,000 mg/ (Dextrose) 250 mls @ 166.667 mls/hr IVPB DAILY@1300 [facility]; Protocol Last Admin: 01/28/18 12:09 Dose: 166.667 mls/hr Losartan Potassium (Cozaar -) 25 mg PO DAILY [facility] Last Admin: 01/28/18 09:56 Dose: 25 mg Nadolol (Corgard -) 20 mg PO DAILY [facility] Last Admin: 01/28/18 09:56 Dose: Not Given Pantoprazole Sodium (Protonix -) 40 mg PO DAILY [facility] Last Admin: 01/28/18 09:56 Dose: 40 mg Rosuvastatin Calcium (Crestor -) 20 mg PO HS [facility] Last Admin: 01/28/18 21:26 Dose: 20 mg Sitagliptin Phosphate (Januvia -) 100 mg PO DAILY@0700 [facility] Last Admin: 01/29/18 06:12 Dose: 100 mg - Objective Vital Signs: Vital Signs Temperature 98.5 F 01/29/18 07:07 Pulse Rate 69 01/29/18 07:07 Respiratory Rate 20 01/29/18 07:07 Blood Pressure 124/67 01/29/18 07:07 O2 Sat by Pulse Oximetry (%) 97 01/28/18 09:00 Constitutional: Yes: Well Nourished, No Distress, Calm Cardiovascular: Yes: Regular Rate and Rhythm Respiratory: Yes: Regular Gastrointestinal: Yes: Normal Bowel Sounds, Soft Musculoskeletal: Yes: WNL Extremities: Yes: WNL Edema: No Peripheral Pulses WNL: Yes Neurological: Yes: Alert, Oriented Psychiatric: Yes: Alert, Oriented Labs: CBC, BMP 01/28/18 06:30 INR, PTT INR 1.27 (0.83-1.09) H 01/24/18 16:30 Problem List - Problems (1) Pneumonia Assessment/Plan: -Repeat CXR -On bronchodilators -Continue IV abx -Steroid not indicated at this time -Nasal O 2 PRN, maintain SpO2> 90% -Pulmonary on board -Add pulmicort 0.25 mg BID Code(s): J18.9 - PNEUMONIA, UNSPECIFIED ORGANISM Qualifiers: (2) Chronic ischemic heart disease Assessment/Plan: -Seen by cardiology: -patent prior stent in lad and no sig residual dz on cath 10/2011 -no ischemia on recent mibi -no signs acs here -cont nadolol (on for portal htn) -cont asa, statin (previously cleared for statin by GI/liver, LFTs had been stable as outpt, remain stable here) Code(s): I25.9 - CHRONIC ISCHEMIC HEART DISEASE, UNSPECIFIED (3) Diabetes Assessment/Plan: -A1C 6.5% -BGM AC HS- would d/c -Diabetic low sodium diet -Novolog insulin sliding scale-D/C -renal function is normal, would prefer PO hypoglycemics- start Januvia 100 mg po daily -RD consult Code(s): E11.9 - TYPE 2 DIABETES MELLITUS WITHOUT COMPLICATIONS (4) Hypertension Assessment/Plan: -On nadolol, amlodipine and losartan -On asa 81 mg po daily -Seen by Cardiology -Vitals stable Code(s): I10 - ESSENTIAL (PRIMARY) HYPERTENSION (5) Hypokalemia Assessment/Plan: -Kcl 40 meq once yesterday -today's labs pending -monitor trend Code(s): E87.6 - HYPOKALEMIA Assessment/Plan see problem list DVT prophylaxis Self ambulatory dispo: home once ready for discharge
[2018-01-29 08:18] LABS: ANION GAP 4 MMOL/L (8-16); BLOOD UREA NITROGEN 6 mg/dL (7-18); CALCIUM 8.4 mg/dL (8.5-10.1); CHLORIDE 111 mmol/L (98-107); CO2 29 mmol/L (21-32); CREATININE 0.9 mg/dL (0.55-1.3); GLUCOSE,RANDOM 115 mg/dL (74-106); SODIUM 144 mmol/L (136-145)
[2018-01-29] MEDS: NADOLOL 20 MG TABLET (FP) PO SCH (09:45)
[2018-01-29] MEDS: LOSARTAN POTASSIUM 25 MG TABLET PO SCH (09:45)
[2018-01-29] MEDS: ASPIRIN 81 MG CHEWABLE TABLETS PO SCH (09:45)
[2018-01-29] MEDS: PANTOPRAZOLE 40 MG TABLET (FP) PO SCH (09:46)
[2018-01-29] MEDS: ESCITALOPRAM OXALATE 10 MG TABLET (FP) PO SCH (09:46)
[2018-01-29] MEDS: amLODIPine BESYLATE 5 MG TABLET (FP) PO SCH (09:46)
[2018-01-29] MEDS: FLUDROCORTISONE ACETATE 0.1 MG TABLET (FP) PO SCH (09:46)
[2018-01-29] MEDS: HEPARIN NA (PORCINE) 5,000 UNITS/ML 1ML VIAL SQ SCH ×2 (09:47→21:52)
[2018-01-29] MEDS: VANCOMYCIN 1,000 MG in DEXTROSE 5%-WATER - 250 ML IVPB SCH (12:57)
--- NOTE | 2018-01-29 13:37 | PN ---
Progress Note, Physician History of Present Illness: pulmonary alert,feeling better,less dyspneic - Current Medication List Current Medications: Active Medications Acetaminophen (Tylenol -) 650 mg PO Q4H PRN PRN Reason: PAIN OR FEVER Last Admin: 01/28/18 08:50 Dose: 650 mg Albuterol Sulfate (Ventolin 0.083% Nebulizer Soln -) 1 amp NEB Q4H [facility] Last Admin: 01/29/18 10:05 Dose: 1 amp Amlodipine Besylate (Norvasc -) 5 mg PO DAILY [facility] Last Admin: 01/29/18 09:46 Dose: 5 mg Aspirin (Asa -) 81 mg PO DAILY [facility] Last Admin: 01/29/18 09:45 Dose: 81 mg Budesonide (Pulmicort 0.25 Mg Nebulizer -) 1 amp NEB RBID [facility] Last Admin: 01/29/18 07:30 Dose: 1 amp Escitalopram Oxalate (Lexapro -) 10 mg PO DAILY [facility] Last Admin: 01/29/18 09:46 Dose: 10 mg Eucalyptus/Menthol/Phenol/Sorbitol (Cepastat Lozenge -) 1 each MM Q4H PRN PRN Reason: SORE THROAT Last Admin: 01/26/18 10:18 Dose: 1 each Fludrocortisone Acetate (Florinef -) 0.1 mg PO DAILY [facility] Last Admin: 01/29/18 09:46 Dose: 0.1 mg Heparin Sodium (Porcine) (Heparin -) 5,000 unit SQ BID [facility] Last Admin: 01/29/18 09:47 Dose: 5,000 unit Aztreonam 1 gm/ Dextrose 50 mls @ 100 mls/hr IVPB Q8H-IV [facility]; Protocol Last Admin: 01/29/18 09:46 Dose: 100 mls/hr Vancomycin HCl 1,000 mg/ (Dextrose) 250 mls @ 166.667 mls/hr IVPB DAILY@1300 [facility]; Protocol Last Admin: 01/29/18 12:57 Dose: 166.667 mls/hr Losartan Potassium (Cozaar -) 25 mg PO DAILY [facility] Last Admin: 01/29/18 09:45 Dose: 25 mg Nadolol (Corgard -) 20 mg PO DAILY [facility] Last Admin: 01/29/18 09:45 Dose: 20 mg Pantoprazole Sodium (Protonix -) 40 mg PO DAILY [facility] Last Admin: 01/29/18 09:46 Dose: 40 mg Rosuvastatin Calcium (Crestor -) 20 mg PO HS [facility] Last Admin: 01/28/18 21:26 Dose: 20 mg Sitagliptin Phosphate (Januvia -) 100 mg PO DAILY@0700 [facility] Last Admin: 01/29/18 06:12 Dose: 100 mg - Objective Vital Signs: Vital Signs Temperature 97.8 F 01/29/18 08:15 Pulse Rate 65 01/29/18 08:15 Respiratory Rate 20 01/29/18 08:15 Blood Pressure 138/70 01/29/18 08:15 O2 Sat by Pulse Oximetry (%) 97 01/28/18 09:00 Constitutional: Yes: Well Nourished, Calm Eyes: Yes: WNL HENT: Yes: WNL Neck: Yes: WNL Cardiovascular: Yes: Regular Rate and Rhythm, S1, S2 Respiratory: Yes: Wheezes (few wheezes) Gastrointestinal: Yes: Normal Bowel Sounds, Soft Extremities: Yes: WNL Edema: No Labs: CBC, BMP 01/29/18 06:30 INR, PTT INR 1.27 (0.83-1.09) H 01/24/18 16:30 Assessment/Plan Problem List - Problems (1) Pneumonia Code(s): J18.9 - PNEUMONIA, UNSPECIFIED ORGANISM Qualifiers: (2) Cough Code(s): R05 - COUGH (3) Asthma Code(s): J45.909 - UNSPECIFIED ASTHMA, UNCOMPLICATED Qualifiers: Asthma severity: unspecified severity Asthma complication type: uncomplicated (4) Anemia Code(s): D64.9 - ANEMIA, UNSPECIFIED (5) Anxiety Code(s): F41.9 - ANXIETY DISORDER, UNSPECIFIED (6) Chronic ischemic heart disease Code(s): I25.9 - CHRONIC ISCHEMIC HEART DISEASE, UNSPECIFIED (7) Cirrhosis of liver Code(s): K74.60 - UNSPECIFIED CIRRHOSIS OF LIVER Qualifiers: Hepatic cirrhosis type: alcoholic cirrhosis Ascites presence: without ascites Qualified Code(s): K70.30 - Alcoholic cirrhosis of liver without ascites (8) Coronary artery disease Code(s): I25.10 - ATHSCL HEART DISEASE OF [place] CORONARY ARTERY W/O ANG PCTRS Qualifiers: Coronary Disease-Associated Artery/Lesion type: [place] artery [place] vs. transplanted heart: [place] heart Associated angina: without angina Qualified Code(s): I25.10 - Atherosclerotic heart disease of [place] coronary artery without angina pectoris (9) Depression Code(s): F32.9 - MAJOR DEPRESSIVE DISORDER, SINGLE EPISODE, UNSPECIFIED (10) Diabetes Code(s): E11.9 - TYPE 2 DIABETES MELLITUS WITHOUT COMPLICATIONS (11) Dyspnea Code(s): R06.00 - DYSPNEA, UNSPECIFIED Qualifiers: Dyspnea type: shortness of breath Qualified Code(s): R06.02 - Shortness of breath (12) Hyperlipidemia Code(s): E78.5 - HYPERLIPIDEMIA, UNSPECIFIED Qualifiers: Hyperlipidemia type: pure hypercholesterolemia Qualified Code(s): E78.00 - Pure hypercholesterolemia, unspecified; E78.0 - Pure hypercholesterolemia (13) Hypertension Code(s): I10 - ESSENTIAL (PRIMARY) HYPERTENSION (14) S/P coronary artery stent placement Code(s): Z95.5 - PRESENCE OF CORONARY ANGIOPLASTY IMPLANT AND GRAFT Assessment/Plan LUCILLE previously diagnosed in 2016: unclear if she received treatment ABX as per ID O2 as needed INHALED BRONCHODILATORS DR WESLEY
[2018-01-29] MEDS ORDERED: ROSUVASTATIN CA 10 MG TABLET (FP) ONE (21:52)
[2018-01-29] MEDS: ROSUVASTATIN CA 20 MG TABLET (FP) PO SCH (21:52)
[2018-01-30] MEDS: AZTREONAM 1 GM in DEXTROSE 5%-WATER - 50 ML IVPB SCH ×3 (01:19→17:48)
[2018-01-30] MEDS: sitaGLIPtin PHOSPHATE 100 MG TABLET (FP) PO SCH (06:38)
[2018-01-30] MEDS ORDERED: INSULIN (NOVOLOG) ASPART 100 UNITS/ML 10ML VIAL ONE (06:48)
[2018-01-30] MEDS: BUDESONIDE 0.25 MG/2ML INH SUSP VIAL NEB SCH ×2 (07:30→20:47)
--- NOTE | 2018-01-30 10:12 | PN ---
Progress Note (short form) - Note Progress Note: PULMONARY Denies shortness of breath, cough or fevers. Vital Signs Period Temp Pulse Resp BP Sys/Donovan Pulse Ox Last 24 Hr 97.8 F-98.2 F 61-64 18-20 115-135/59-68 97 Gen: NAD at rest Heart: RRR Lung: bilateral rales Abd: soft, nontender Ext: no edema CBC, BMP 01/28/18 06:30 01/29/18 06:30 Active Medications Acetaminophen (Tylenol -) 650 mg PO Q4H PRN PRN Reason: PAIN OR FEVER Last Admin: 01/28/18 08:50 Dose: 650 mg Albuterol Sulfate (Ventolin 0.083% Nebulizer Soln -) 1 amp NEB Q4H PRN PRN Reason: SHORT OF BREATH/WHEEZING Amlodipine Besylate (Norvasc -) 5 mg PO DAILY [facility] Last Admin: 01/29/18 09:46 Dose: 5 mg Aspirin (Asa -) 81 mg PO DAILY [facility] Last Admin: 01/29/18 09:45 Dose: 81 mg Budesonide (Pulmicort 0.25 Mg Nebulizer -) 1 amp NEB RBID [facility] Last Admin: 01/30/18 07:30 Dose: 1 amp Escitalopram Oxalate (Lexapro -) 10 mg PO DAILY [facility] Last Admin: 01/29/18 09:46 Dose: 10 mg Eucalyptus/Menthol/Phenol/Sorbitol (Cepastat Lozenge -) 1 each MM Q4H PRN PRN Reason: SORE THROAT Last Admin: 01/26/18 10:18 Dose: 1 each Fludrocortisone Acetate (Florinef -) 0.1 mg PO DAILY [facility] Last Admin: 01/29/18 09:46 Dose: 0.1 mg Heparin Sodium (Porcine) (Heparin -) 5,000 unit SQ BID [facility] Last Admin: 01/29/18 21:52 Dose: 5,000 unit Aztreonam 1 gm/ Dextrose 50 mls @ 100 mls/hr IVPB Q8H-IV [facility]; Protocol Last Admin: 01/30/18 01:19 Dose: 100 mls/hr Vancomycin HCl 1,000 mg/ (Dextrose) 250 mls @ 166.667 mls/hr IVPB DAILY@1300 [facility]; Protocol Last Admin: 01/29/18 12:57 Dose: 166.667 mls/hr Losartan Potassium (Cozaar -) 25 mg PO DAILY [facility] Last Admin: 01/29/18 09:45 Dose: 25 mg Nadolol (Corgard -) 20 mg PO DAILY [facility] Last Admin: 01/29/18 09:45 Dose: 20 mg Pantoprazole Sodium (Protonix -) 40 mg PO DAILY [facility] Last Admin: 01/29/18 09:46 Dose: 40 mg Rosuvastatin Calcium (Crestor -) 20 mg PO HS [facility] Last Admin: 01/29/18 21:52 Dose: 20 mg Sitagliptin Phosphate (Januvia -) 100 mg PO DAILY@0700 [facility] Last Admin: 01/30/18 06:38 Dose: 100 mg A/P Pneumonia h/o TIFFANIE COPD Liver Cirrhosis CAD HTN Hyperlipidemia - complete antibiotics - inhaled bronchodilators as needed - O2 to keep SpO2 >90% - will need outpt f/u of chest imaging - DVT prophylaxis
[2018-01-30] MEDS: LOSARTAN POTASSIUM 25 MG TABLET PO SCH (10:45)
[2018-01-30] MEDS: HEPARIN NA (PORCINE) 5,000 UNITS/ML 1ML VIAL SQ SCH ×2 (10:45→21:15)
[2018-01-30] MEDS: amLODIPine BESYLATE 5 MG TABLET (FP) PO SCH (10:45)
[2018-01-30] MEDS: NADOLOL 20 MG TABLET (FP) PO SCH (10:45)
[2018-01-30] MEDS: ESCITALOPRAM OXALATE 10 MG TABLET (FP) PO SCH (10:45)
[2018-01-30] MEDS: PANTOPRAZOLE 40 MG TABLET (FP) PO SCH (10:45)
[2018-01-30] MEDS: ASPIRIN 81 MG CHEWABLE TABLETS PO SCH (10:45)
--- NOTE | 2018-01-30 11:43 | PN ---
Progress Note, Physician Chief Complaint: patient seen and examined in bed breathing better on iv abx vancomycin and aztreonam - Current Medication List Current Medications: Active Medications Acetaminophen (Tylenol -) 650 mg PO Q4H PRN PRN Reason: PAIN OR FEVER Last Admin: 01/28/18 08:50 Dose: 650 mg Albuterol Sulfate (Ventolin 0.083% Nebulizer Soln -) 1 amp NEB Q4H PRN PRN Reason: SHORT OF BREATH/WHEEZING Amlodipine Besylate (Norvasc -) 5 mg PO DAILY [facility] Last Admin: 01/30/18 10:45 Dose: 5 mg Aspirin (Asa -) 81 mg PO DAILY [facility] Last Admin: 01/30/18 10:45 Dose: 81 mg Budesonide (Pulmicort 0.25 Mg Nebulizer -) 1 amp NEB RBID [facility] Last Admin: 01/30/18 07:30 Dose: 1 amp Escitalopram Oxalate (Lexapro -) 10 mg PO DAILY [facility] Last Admin: 01/30/18 10:45 Dose: 10 mg Eucalyptus/Menthol/Phenol/Sorbitol (Cepastat Lozenge -) 1 each MM Q4H PRN PRN Reason: SORE THROAT Last Admin: 01/26/18 10:18 Dose: 1 each Fludrocortisone Acetate (Florinef -) 0.1 mg PO DAILY [facility] Last Admin: 01/29/18 09:46 Dose: 0.1 mg Heparin Sodium (Porcine) (Heparin -) 5,000 unit SQ BID [facility] Last Admin: 01/30/18 10:45 Dose: 5,000 unit Aztreonam 1 gm/ Dextrose 50 mls @ 100 mls/hr IVPB Q8H-IV [facility]; Protocol Last Admin: 01/30/18 10:46 Dose: 100 mls/hr Vancomycin HCl 1,000 mg/ (Dextrose) 250 mls @ 166.667 mls/hr IVPB DAILY@1300 [facility]; Protocol Last Admin: 01/29/18 12:57 Dose: 166.667 mls/hr Losartan Potassium (Cozaar -) 25 mg PO DAILY [facility] Last Admin: 01/30/18 10:45 Dose: 25 mg Nadolol (Corgard -) 20 mg PO DAILY [facility] Last Admin: 01/30/18 10:45 Dose: 20 mg Pantoprazole Sodium (Protonix -) 40 mg PO DAILY [facility] Last Admin: 01/30/18 10:45 Dose: 40 mg Rosuvastatin Calcium (Crestor -) 20 mg PO HS [facility] Last Admin: 01/29/18 21:52 Dose: 20 mg Sitagliptin Phosphate (Januvia -) 100 mg PO DAILY@0700 [facility] Last Admin: 01/30/18 06:38 Dose: 100 mg - Objective Vital Signs: Vital Signs Temperature 98.1 F 01/30/18 06:00 Pulse Rate 63 01/30/18 06:00 Respiratory Rate 18 01/30/18 06:00 Blood Pressure 115/65 01/30/18 06:00 O2 Sat by Pulse Oximetry (%) 97 01/29/18 21:00 Constitutional: Yes: Calm Neck: Yes: Trachea Midline Cardiovascular: Yes: Regular Rate and Rhythm, S1, S2 Respiratory: Yes: Rales Gastrointestinal: Yes: Normal Bowel Sounds, Soft Edema: No Neurological: Yes: Alert, Oriented Labs: CBC, BMP 01/28/18 06:30 01/29/18 06:30 INR, PTT INR 1.27 (0.83-1.09) H 01/24/18 16:30 Problem List - Problems (1) Hypokalemia Assessment/Plan: improved Code(s): E87.6 - HYPOKALEMIA (2) Pneumonia Assessment/Plan: iv vanco and axtreonam Microbiology 01/25/18 06:00 Urine For Antigen Detection Legionella Antigen - Final 01/25/18 06:00 Urine For Antigen Detection Streptococcus pneumoniae Antigen (M - Final 01/25/18 06:00 Sputum - Expectorated Gram Stain - Final 01/25/18 06:00 Sputum - Expectorated Sputum Culture - Final Pseudomonas Aeruginosa bronchodilators oxygen pulm on board dvt ppx Code(s): J18.9 - PNEUMONIA, UNSPECIFIED ORGANISM Qualifiers: (3) Diabetes Assessment/Plan: avani Code(s): E11.9 - TYPE 2 DIABETES MELLITUS WITHOUT COMPLICATIONS Qualifiers: Diabetes mellitus type: type 2 (4) Depression Assessment/Plan: lexapro Code(s): F32.9 - MAJOR DEPRESSIVE DISORDER, SINGLE EPISODE, UNSPECIFIED
[2018-01-30] MEDS ORDERED: PT OWN MED DRAWER 7, Y5N ONE ×3 (12:19→21:48)
[2018-01-30] MEDS: FLUDROCORTISONE ACETATE 0.1 MG TABLET (FP) PO SCH (12:23)
[2018-01-30] MEDS: VANCOMYCIN 1,000 MG in DEXTROSE 5%-WATER - 250 ML IVPB SCH (12:23)
--- NOTE | 2018-01-30 13:56 | PN ---
Progress Note (short form) - Note Progress Note: s: still has cough, stable dyspnea. no cp, palps, dizziness, lightheadedness o: Current Medications Acetaminophen (Tylenol -) 650 mg PO Q4H PRN PRN Reason: PAIN OR FEVER Last Admin: 01/28/18 08:50 Dose: 650 mg Albuterol Sulfate (Ventolin 0.083% Nebulizer Soln -) 1 amp NEB Q4H PRN PRN Reason: SHORT OF BREATH/WHEEZING Amlodipine Besylate (Norvasc -) 5 mg PO DAILY [facility] Last Admin: 01/30/18 10:45 Dose: 5 mg Aspirin (Asa -) 81 mg PO DAILY [facility] Last Admin: 01/30/18 10:45 Dose: 81 mg Budesonide (Pulmicort 0.25 Mg Nebulizer -) 1 amp NEB RBID [facility] Last Admin: 01/30/18 07:30 Dose: 1 amp Escitalopram Oxalate (Lexapro -) 10 mg PO DAILY [facility] Last Admin: 01/30/18 10:45 Dose: 10 mg Eucalyptus/Menthol/Phenol/Sorbitol (Cepastat Lozenge -) 1 each MM Q4H PRN PRN Reason: SORE THROAT Last Admin: 01/26/18 10:18 Dose: 1 each Fludrocortisone Acetate (Florinef -) 0.1 mg PO DAILY [facility] Last Admin: 01/30/18 12:23 Dose: 0.1 mg Heparin Sodium (Porcine) (Heparin -) 5,000 unit SQ BID [facility] Last Admin: 01/30/18 10:45 Dose: 5,000 unit Aztreonam 1 gm/ Dextrose 50 mls @ 100 mls/hr IVPB Q8H-IV [facility]; Protocol Last Admin: 01/30/18 10:46 Dose: 100 mls/hr Vancomycin HCl 1,000 mg/ (Dextrose) 250 mls @ 166.667 mls/hr IVPB DAILY@1300 [facility]; Protocol Last Admin: 01/30/18 12:23 Dose: 166.667 mls/hr Losartan Potassium (Cozaar -) 25 mg PO DAILY [facility] Last Admin: 01/30/18 10:45 Dose: 25 mg Nadolol (Corgard -) 20 mg PO DAILY [facility] Last Admin: 01/30/18 10:45 Dose: 20 mg Pantoprazole Sodium (Protonix -) 40 mg PO DAILY [facility] Last Admin: 01/30/18 10:45 Dose: 40 mg Rosuvastatin Calcium (Crestor -) 20 mg PO HS [facility] Last Admin: 01/29/18 21:52 Dose: 20 mg Sitagliptin Phosphate (Januvia -) 100 mg PO DAILY@0700 [facility] Last Admin: 01/30/18 06:38 Dose: 100 mg Vital Signs: Vital Signs Period Temp Pulse Resp BP Sys/Donovan Pulse Ox Last 24 Hr 97.8 F-98.2 F 61-64 18-18 109-135/59-67 97 Constitutional: Yes: Well Nourished, No Distress, Calm Eyes: Yes: WNL HENT: Yes: Atraumatic, Normocephalic Neck: Yes: Supple, Trachea Midline Respiratory: diffuse fine crackles bilaterally Gastrointestinal: Yes: Normal Bowel Sounds, Soft Renal/: Yes: WNL Cardiovascular: Yes: Regular Rate and Rhythm JVD: No Heart Sounds: Yes: S1, S2 Edema: No Peripheral Pulses WNL: Yes Peripheral Pulses: 2+ Left Doralis Pedis, 2+ Right Dorsalis Pedis Integumentary: Yes: WNL Neurological: Yes: Alert, Oriented ...Motor Strength: WNL Psychiatric: Yes: Alert, Oriented Assessment/Plan EKG: sinus rhythm, TWI anterior leads CXR: mild congestion, chronic interstitial changes echo 12/2015: nl lv/rv, mod-sev tr, rvsp 37 echo 08/2017: nl lv/rv, mild mr, mod tr, mod ar mibi 02/2017: nl mpi, nl lvef CT chest 01/2018 bronchiectasis and ground glass opacification unchanged since 2017, advanced hepatocellular disease a/p: 77 yo with hx dm, htn, hld, cvas/tias, cad s/p remote pci in [facility] cirrhosis (etoh cirrhosis with varices s/p banding by dr park), breast ca 12/2014, here with shortness of breath, chest pain Dyspnea, ILD, COPD - treating empirically for PNA per primary team - CXR shows mild congestion/chronic interstitial changes - received lasix 40 mg IV times one 01/25 - pulm and ID following, on IV abx - euvolemic, holding diuretics chest pain - likely pleuritic from cough, resolved - trop negative, EKG with new TWI compared to prior however given clinical picture not concerning for ischemia Cirrhosis of liver -sec to prior etoh abuse -no signs of bleeding on asa -on nadolol, h/o varices mod-sev tr - no signs right heart failure on exam - rv normal on echo and no sig pulm htn 08/2017 - monitor clinically Hypertension -on home nadolol, cozaar, amlodipine Chronic ischemic heart disease/cad s/p remote pci in [facility] ([place]) -patent prior stent in [place] and no sig residual dz on cath 10/2011 -no ischemia on recent mibi -no signs acs here -cont nadolol (on for portal htn) -cont asa, statin (previously cleared for statin by GI/liver, LFTs had been stable as outpt, remain stable here)
[2018-01-30] MEDS ORDERED: ROSUVASTATIN CA 10 MG TABLET (FP) ONE (21:13)
[2018-01-30] MEDS: ROSUVASTATIN CA 20 MG TABLET (FP) PO SCH (21:15)
[2018-01-31] MEDS ORDERED: PT OWN MED DRAWER 7, Y5N ONE ×5 (02:31→17:18)
[2018-01-31] MEDS: AZTREONAM 1 GM in DEXTROSE 5%-WATER - 50 ML IVPB SCH ×3 (02:40→17:28)
[2018-01-31] MEDS: sitaGLIPtin PHOSPHATE 100 MG TABLET (FP) PO SCH (06:38)
[2018-01-31] MEDS: BUDESONIDE 0.25 MG/2ML INH SUSP VIAL NEB SCH ×2 (07:45→20:25)
[2018-01-31] MEDS: PANTOPRAZOLE 40 MG TABLET (FP) PO SCH (10:23)
[2018-01-31] MEDS: FLUDROCORTISONE ACETATE 0.1 MG TABLET (FP) PO SCH (10:23)
[2018-01-31] MEDS: NADOLOL 20 MG TABLET (FP) PO SCH (10:23)
[2018-01-31] MEDS: HEPARIN NA (PORCINE) 5,000 UNITS/ML 1ML VIAL SQ SCH ×2 (10:23→21:30)
[2018-01-31] MEDS: ESCITALOPRAM OXALATE 10 MG TABLET (FP) PO SCH (10:24)
[2018-01-31] MEDS: amLODIPine BESYLATE 5 MG TABLET (FP) PO SCH (10:24)
[2018-01-31] MEDS: LOSARTAN POTASSIUM 25 MG TABLET PO SCH (10:24)
[2018-01-31] MEDS: ASPIRIN 81 MG CHEWABLE TABLETS PO SCH (10:24)
--- NOTE | 2018-01-31 10:26 | PN ---
Progress Note (short form) - Note Progress Note: PULMONARY Denies shortness of breath, cough or fevers. Vital Signs Period Temp Pulse Resp BP Sys/Donovan Pulse Ox Last 24 Hr 97.7 F-98.3 F 55-62 18-20 113-122/54-58 Gen: NAD at rest Heart: RRR Lung: bilateral rales Abd: soft, nontender Ext: no edema CBC, BMP 01/28/18 06:30 01/29/18 06:30 Active Medications Acetaminophen (Tylenol -) 650 mg PO Q4H PRN PRN Reason: PAIN OR FEVER Last Admin: 01/28/18 08:50 Dose: 650 mg Albuterol Sulfate (Ventolin 0.083% Nebulizer Soln -) 1 amp NEB Q4H PRN PRN Reason: SHORT OF BREATH/WHEEZING Amlodipine Besylate (Norvasc -) 5 mg PO DAILY [facility] Last Admin: 01/31/18 10:24 Dose: 5 mg Aspirin (Asa -) 81 mg PO DAILY [facility] Last Admin: 01/31/18 10:24 Dose: 81 mg Budesonide (Pulmicort 0.25 Mg Nebulizer -) 1 amp NEB RBID [facility] Last Admin: 01/31/18 07:45 Dose: 1 amp Escitalopram Oxalate (Lexapro -) 10 mg PO DAILY [facility] Last Admin: 01/31/18 10:24 Dose: 10 mg Eucalyptus/Menthol/Phenol/Sorbitol (Cepastat Lozenge -) 1 each MM Q4H PRN PRN Reason: SORE THROAT Last Admin: 01/26/18 10:18 Dose: 1 each Fludrocortisone Acetate (Florinef -) 0.1 mg PO DAILY [facility] Last Admin: 01/31/18 10:23 Dose: 0.1 mg Heparin Sodium (Porcine) (Heparin -) 5,000 unit SQ BID [facility] Last Admin: 01/31/18 10:23 Dose: 5,000 unit Aztreonam 1 gm/ Dextrose 50 mls @ 100 mls/hr IVPB Q8H-IV [facility]; Protocol Last Admin: 01/31/18 10:24 Dose: 100 mls/hr Vancomycin HCl 1,000 mg/ (Dextrose) 250 mls @ 166.667 mls/hr IVPB DAILY@1300 [facility]; Protocol Last Admin: 09/24/18 12:23 Dose: 166.667 mls/hr Losartan Potassium (Cozaar -) 25 mg PO DAILY [facility] Last Admin: 01/31/18 10:24 Dose: 25 mg Nadolol (Corgard -) 20 mg PO DAILY [facility] Last Admin: 01/31/18 10:23 Dose: 20 mg Pantoprazole Sodium (Protonix -) 40 mg PO DAILY [facility] Last Admin: 01/31/18 10:23 Dose: 40 mg Rosuvastatin Calcium (Crestor -) 20 mg PO HS [facility] Last Admin: 01/30/18 21:15 Dose: 20 mg Sitagliptin Phosphate (Januvia -) 100 mg PO DAILY@0700 [facility] Last Admin: 01/31/18 06:38 Dose: 100 mg A/P Pneumonia h/o TIFFANIE COPD Liver Cirrhosis CAD HTN Hyperlipidemia - complete antibiotics - inhaled bronchodilators as needed - O2 to keep SpO2 >90% - will need outpt f/u of chest imaging - DVT prophylaxis
--- NOTE | 2018-01-31 13:56 | PN ---
Progress Note, Physician Chief Complaint: patient in bed no distress awake alert - Current Medication List Current Medications: Active Medications Acetaminophen (Tylenol -) 650 mg PO Q4H PRN PRN Reason: PAIN OR FEVER Last Admin: 01/28/18 08:50 Dose: 650 mg Albuterol Sulfate (Ventolin 0.083% Nebulizer Soln -) 1 amp NEB Q4H PRN PRN Reason: SHORT OF BREATH/WHEEZING Amlodipine Besylate (Norvasc -) 5 mg PO DAILY [facility] Last Admin: 01/31/18 10:24 Dose: 5 mg Aspirin (Asa -) 81 mg PO DAILY [facility] Last Admin: 01/31/18 10:24 Dose: 81 mg Budesonide (Pulmicort 0.25 Mg Nebulizer -) 1 amp NEB RBID [facility] Last Admin: 01/31/18 07:45 Dose: 1 amp Escitalopram Oxalate (Lexapro -) 10 mg PO DAILY [facility] Last Admin: 01/31/18 10:24 Dose: 10 mg Eucalyptus/Menthol/Phenol/Sorbitol (Cepastat Lozenge -) 1 each MM Q4H PRN PRN Reason: SORE THROAT Last Admin: 01/26/18 10:18 Dose: 1 each Fludrocortisone Acetate (Florinef -) 0.1 mg PO DAILY [facility] Last Admin: 01/31/18 10:23 Dose: 0.1 mg Heparin Sodium (Porcine) (Heparin -) 5,000 unit SQ BID [facility] Last Admin: 01/31/18 10:23 Dose: 5,000 unit Aztreonam 1 gm/ Dextrose 50 mls @ 100 mls/hr IVPB Q8H-IV [facility]; Protocol Last Admin: 01/31/18 10:24 Dose: 100 mls/hr Vancomycin HCl 1,000 mg/ (Dextrose) 250 mls @ 166.667 mls/hr IVPB DAILY@1300 [facility]; Protocol Last Admin: 01/30/18 12:23 Dose: 166.667 mls/hr Losartan Potassium (Cozaar -) 25 mg PO DAILY [facility] Last Admin: 01/31/18 10:24 Dose: 25 mg Nadolol (Corgard -) 20 mg PO DAILY [facility] Last Admin: 01/31/18 10:23 Dose: 20 mg Pantoprazole Sodium (Protonix -) 40 mg PO DAILY [facility] Last Admin: 01/31/18 10:23 Dose: 40 mg Rosuvastatin Calcium (Crestor -) 20 mg PO HS [facility] Last Admin: 01/30/18 21:15 Dose: 20 mg Sitagliptin Phosphate (Januvia -) 100 mg PO DAILY@0700 [facility] Last Admin: 01/31/18 06:38 Dose: 100 mg - Objective Vital Signs: Vital Signs Temperature 98.0 F 01/31/18 10:00 Pulse Rate 64 01/31/18 10:00 Respiratory Rate 20 01/31/18 10:00 Blood Pressure 119/64 01/31/18 10:00 O2 Sat by Pulse Oximetry (%) 97 01/29/18 21:00 Constitutional: Yes: Calm, Thin Cardiovascular: Yes: Regular Rate and Rhythm, S1, S2 Respiratory: Yes: CTA Bilaterally Gastrointestinal: Yes: Normal Bowel Sounds, Soft Edema: No Neurological: Yes: Alert, Oriented Labs: CBC, BMP 01/28/18 06:30 01/29/18 06:30 INR, PTT INR 1.27 (0.83-1.09) H 01/24/18 16:30 Problem List - Problems (1) Hypokalemia Assessment/Plan: improved Code(s): E87.6 - HYPOKALEMIA (2) Pneumonia Assessment/Plan: iv vanco and axtreonam will continue till tmw Microbiology 01/25/18 06:00 Urine For Antigen Detection Legionella Antigen - Final 01/25/18 06:00 Urine For Antigen Detection Streptococcus pneumoniae Antigen (M - Final 01/25/18 06:00 Sputum - Expectorated Gram Stain - Final 01/25/18 06:00 Sputum - Expectorated Sputum Culture - Final Pseudomonas Aeruginosa bronchodilators oxygen pulm on board dvt ppx Code(s): J18.9 - PNEUMONIA, UNSPECIFIED ORGANISM Qualifiers: (3) Diabetes Assessment/Plan: avani Code(s): E11.9 - TYPE 2 DIABETES MELLITUS WITHOUT COMPLICATIONS Qualifiers: Diabetes mellitus type: type 2 (4) Depression Assessment/Plan: lexapro Code(s): F32.9 - MAJOR DEPRESSIVE DISORDER, SINGLE EPISODE, UNSPECIFIED
[2018-01-31] MEDS: VANCOMYCIN 1,000 MG in DEXTROSE 5%-WATER - 250 ML IVPB SCH (14:09)
--- NOTE | 2018-01-31 15:31 | PN ---
Progress Note (short form) - Note Progress Note: s: still has cough, but better. no cp, palps, dizziness, lightheadedness o: Current Medications Generic Name Dose Route Start Last Admin Trade Name Freq PRN Reason Stop Dose Admin Acetaminophen 650 mg 01/28/18 07:52 01/28/18 08:50 Tylenol - PO 650 mg Q4H PRN Administration PAIN OR FEVER Albuterol Sulfate 1 amp 01/29/18 14:15 Ventolin 0.083% Nebulizer Soln - NEB Q4H PRN SHORT OF BREATH/WHEEZING Amlodipine Besylate 5 mg 01/25/18 10:00 01/31/18 10:24 Norvasc - PO 5 mg DAILY [facility] Administration Aspirin 81 mg 01/25/18 10:00 01/31/18 10:24 Asa - PO 81 mg DAILY [facility] Administration Budesonide 1 amp 01/28/18 08:00 01/31/18 07:45 Pulmicort 0.25 Mg Nebulizer - NEB 1 amp RBID [facility] Administration Escitalopram Oxalate 10 mg 01/25/18 10:00 01/31/18 10:24 Lexapro - PO 10 mg DAILY [facility] Administration Eucalyptus/Menthol/Phenol/Sorbitol 1 each 01/25/18 17:23 01/26/18 10:18 Cepastat Lozenge - MM 1 each Q4H PRN Administration SORE THROAT Fludrocortisone Acetate 0.1 mg 01/25/18 10:00 01/31/18 10:23 Florinef - PO 0.1 mg DAILY [facility] Administration Heparin Sodium (Porcine) 5,000 unit 01/24/18 22:00 01/31/18 10:23 Heparin - SQ 5,000 unit BID [facility] Administration Aztreonam 1 gm/ Dextrose 50 mls @ 100 mls/hr 01/25/18 18:00 01/31/18 10:24 IVPB 100 mls/hr Q8H-IV [facility] Administration Protocol Vancomycin HCl 1,000 mg/ 250 mls @ 166.667 mls/hr 01/28/18 13:00 01/31/18 14: 09 Dextrose IVPB 166.667 mls/hr DAILY@1300 [facility] Administration Protocol Insulin Aspart 1 vial 01/31/18 16:30 Novolog Vial Sliding Scale - SQ BIDAC [facility] Protocol Losartan Potassium 25 mg 01/25/18 10:00 01/31/18 10:24 Cozaar - PO 25 mg DAILY [facility] Administration Nadolol 20 mg 01/25/18 10:00 01/31/18 10:23 Corgard - PO 20 mg DAILY [facility] Administration Pantoprazole Sodium 40 mg 01/25/18 10:00 01/31/18 10:23 Protonix - PO 40 mg DAILY [facility] Administration Rosuvastatin Calcium 20 mg 01/24/18 22:00 01/30/18 21:15 Crestor - PO 20 mg HS [facility] Administration Sitagliptin Phosphate 100 mg 01/28/18 08:04 01/31/18 06:38 Januvia - PO 100 mg DAILY@0700 [facility] Administration Vital Signs: Vital Signs Period Temp Pulse Resp BP Sys/Donovan Pulse Ox Last 24 Hr 97.6 F-98.3 F 56-64 18-20 112-120/56-64 Constitutional: Yes: Well Nourished, No Distress, Calm Neck: Yes: Supple, Trachea Midline Respiratory: diffuse fine crackles bilaterally Gastrointestinal: Yes: Normal Bowel Sounds, Soft Cardiovascular: Yes: Regular Rate and Rhythm JVD: No Heart Sounds: Yes: S1, S2 Edema: No Peripheral Pulses WNL: Yes Integumentary: Yes: no jaundice diaphoresis Neurological: Yes: Alert, Oriented EKG: sinus rhythm, TWI anterior leads CXR: mild congestion, chronic interstitial changes echo 12/2015: nl lv/rv, mod-sev tr, rvsp 37 echo 08/2017: nl lv/rv, mild mr, mod tr, mod ar mibi 02/2017: nl mpi, nl lvef CT chest 01/2018 bronchiectasis and ground glass opacification unchanged since 2017, advanced hepatocellular disease a/p: 77 yo with hx dm, htn, hld, cvas/tias, cad s/p remote pci in P.R., cirrhosis (etoh cirrhosis with varices s/p banding by dr park), breast ca 12/2014, here with shortness of breath, chest pain Dyspnea, ILD, COPD - treating empirically for PNA per primary team - CXR shows mild congestion/chronic interstitial changes - received lasix 40 mg IV times one 01/25 - pulm and ID following, on IV abx - euvolemic, holding diuretics chest pain - likely pleuritic from cough, resolved - trop negative, EKG with new TWI compared to prior however given clinical picture not concerning for ischemia Cirrhosis of liver -sec to prior etoh abuse -no signs of bleeding on asa -on nadolol, h/o varices mod-sev tr - no signs right heart failure on exam - rv normal on echo and no sig pulm htn 08/2017 - monitor clinically Hypertension -on home nadolol, cozaar, amlodipine Chronic ischemic heart disease/cad s/p remote pci in P.R. ([facility]) -patent prior stent in lad and no sig residual dz on cath 10/2011 -no ischemia on recent mibi -no signs acs here -cont nadolol (on for portal htn) -cont asa, statin (previously cleared for statin by GI/liver, LFTs had been stable as outpt, remain stable here)
[2018-01-31] MEDS ORDERED: INSULIN (NOVOLOG) ASPART 100 UNITS/ML 10ML VIAL ONE (17:17)
[2018-01-31] MEDS: INSULIN SLIDING SCALE (NOVOLOG) 1 VIAL SQ SCH (17:29)
[2018-01-31] MEDS: ALBUTEROL SO4 0.083% IH SOL 2.5 MG/3 ML VIAL.NEB. NEB PRN (20:25)
[2018-01-31] MEDS ORDERED: ROSUVASTATIN CA 10 MG TABLET (FP) ONE (21:28)
[2018-01-31] MEDS: ROSUVASTATIN CA 20 MG TABLET (FP) PO SCH (21:30)
[2018-02-01] MEDS ORDERED: PT OWN MED DRAWER 7, Y5N ONE ×6 (01:07→21:06)
[2018-02-01] MEDS: AZTREONAM 1 GM in DEXTROSE 5%-WATER - 50 ML IVPB SCH ×3 (01:16→17:29)
[2018-02-01] MEDS: INSULIN SLIDING SCALE (NOVOLOG) 1 VIAL SQ SCH ×2 (06:02→17:29)
[2018-02-01] MEDS: sitaGLIPtin PHOSPHATE 100 MG TABLET (FP) PO SCH (06:11)
[2018-02-01] MEDS: BUDESONIDE 0.25 MG/2ML INH SUSP VIAL NEB SCH ×2 (08:15→20:05)
--- NOTE | 2018-02-01 08:26 | PN ---
Progress Note, Physician - Current Medication List Current Medications: Active Medications Acetaminophen (Tylenol -) 650 mg PO Q4H PRN PRN Reason: PAIN OR FEVER Last Admin: 01/28/18 08:50 Dose: 650 mg Albuterol Sulfate (Ventolin 0.083% Nebulizer Soln -) 1 amp NEB Q4H PRN PRN Reason: SHORT OF BREATH/WHEEZING Last Admin: 01/31/18 20:25 Dose: 1 amp Amlodipine Besylate (Norvasc -) 5 mg PO DAILY [facility] Last Admin: 01/31/18 10:24 Dose: 5 mg Aspirin (Asa -) 81 mg PO DAILY [facility] Last Admin: 01/31/18 10:24 Dose: 81 mg Budesonide (Pulmicort 0.25 Mg Nebulizer -) 1 amp NEB RBID [facility] Last Admin: 02/01/18 08:15 Dose: 1 amp Escitalopram Oxalate (Lexapro -) 10 mg PO DAILY [facility] Last Admin: 01/31/18 10:24 Dose: 10 mg Eucalyptus/Menthol/Phenol/Sorbitol (Cepastat Lozenge -) 1 each MM Q4H PRN PRN Reason: SORE THROAT Last Admin: 01/26/18 10:18 Dose: 1 each Fludrocortisone Acetate (Florinef -) 0.1 mg PO DAILY [facility] Last Admin: 01/31/18 10:23 Dose: 0.1 mg Heparin Sodium (Porcine) (Heparin -) 5,000 unit SQ BID [facility] Last Admin: 01/31/18 21:30 Dose: 5,000 unit Aztreonam 1 gm/ Dextrose 50 mls @ 100 mls/hr IVPB Q8H-IV [facility]; Protocol Last Admin: 02/01/18 01:16 Dose: 100 mls/hr Vancomycin HCl 1,000 mg/ (Dextrose) 250 mls @ 166.667 mls/hr IVPB DAILY@1300 [facility]; Protocol Last Admin: 01/31/18 14:09 Dose: 166.667 mls/hr Insulin Aspart (Novolog Vial Sliding Scale -) 1 vial SQ BIDAC [facility]; Protocol Last Admin: 02/01/18 06:02 Dose: Not Given Losartan Potassium (Cozaar -) 25 mg PO DAILY [facility] Last Admin: 01/31/18 10:24 Dose: 25 mg Nadolol (Corgard -) 20 mg PO DAILY [facility] Last Admin: 01/31/18 10:23 Dose: 20 mg Pantoprazole Sodium (Protonix -) 40 mg PO DAILY [facility] Last Admin: 01/31/18 10:23 Dose: 40 mg Rosuvastatin Calcium (Crestor -) 20 mg PO HS [facility] Last Admin: 01/31/18 21:30 Dose: 20 mg Sitagliptin Phosphate (Januvia -) 100 mg PO DAILY@0700 [facility] Last Admin: 02/01/18 06:11 Dose: 100 mg - Objective Vital Signs: Vital Signs Temperature 97.9 F 02/01/18 07:41 Pulse Rate 58 L 02/01/18 07:41 Respiratory Rate 20 02/01/18 07:41 Blood Pressure 133/54 L 02/01/18 07:41 O2 Sat by Pulse Oximetry (%) 96 01/31/18 21:00 Cardiovascular: Yes: S1, S2 Respiratory: Yes: On Nasal O2, Rhonchi Gastrointestinal: Yes: Normal Bowel Sounds, Soft Labs: CBC, BMP 01/28/18 06:30 01/29/18 06:30 INR, PTT INR 1.27 (0.83-1.09) H 01/24/18 16:30 Assessment/Plan - Problems (1) Hypokalemia Assessment/Plan: improved Code(s): E87.6 - HYPOKALEMIA (2) Pneumonia Assessment/Plan: iv vanco and axtreonam will continue till tmw Microbiology 01/25/18 06:00 Urine For Antigen Detection Legionella Antigen - Final 01/25/18 06:00 Urine For Antigen Detection Streptococcus pneumoniae Antigen (M - Final 01/25/18 06:00 Sputum - Expectorated Gram Stain - Final 01/25/18 06:00 Sputum - Expectorated Sputum Culture - Final Pseudomonas Aeruginosa bronchodilators oxygen pulm on board dvt ppx Code(s): J18.9 - PNEUMONIA, UNSPECIFIED ORGANISM Qualifiers: (3) Diabetes Assessment/Plan: avani Code(s): E11.9 - TYPE 2 DIABETES MELLITUS WITHOUT COMPLICATIONS Qualifiers: Diabetes mellitus type: type 2 (4) Depression Assessment/Plan: lexapro Code(s): F32.9 - MAJOR DEPRESSIVE DISORDER, SINGLE EPISODE, UNSPECIFIED
[2018-02-01] MEDS: ASPIRIN 81 MG CHEWABLE TABLETS PO SCH (09:24)
[2018-02-01] MEDS: LOSARTAN POTASSIUM 25 MG TABLET PO SCH (09:24)
[2018-02-01] MEDS: ESCITALOPRAM OXALATE 10 MG TABLET (FP) PO SCH (09:24)
[2018-02-01] MEDS: NADOLOL 20 MG TABLET (FP) PO SCH (09:24)
[2018-02-01] MEDS: amLODIPine BESYLATE 5 MG TABLET (FP) PO SCH (09:24)
[2018-02-01] MEDS: PANTOPRAZOLE 40 MG TABLET (FP) PO SCH (09:24)
[2018-02-01] MEDS: FLUDROCORTISONE ACETATE 0.1 MG TABLET (FP) PO SCH (09:28)
[2018-02-01] MEDS: HEPARIN NA (PORCINE) 5,000 UNITS/ML 1ML VIAL SQ SCH ×2 (09:29→21:10)
[2018-02-01] MEDS: VANCOMYCIN 1,000 MG in DEXTROSE 5%-WATER - 250 ML IVPB SCH (13:50)
--- NOTE | 2018-02-01 14:04 | PN ---
Progress Note (short form) - Note Progress Note: PULMONARY Denies shortness of breath, + nonproductive cough. No fevers. Vital Signs Period Temp Pulse Resp BP Sys/Donovan Pulse Ox Last 24 Hr 97.6 F-98.6 F 58-63 16-22 100-135/53-82 96-96 Gen: NAD at rest Heart: RRR Lung: bilateral rales Abd: soft, nontender Ext: no edema CBC, BMP 01/28/18 06:30 01/29/18 06:30 Active Medications Acetaminophen (Tylenol -) 650 mg PO Q4H PRN PRN Reason: PAIN OR FEVER Last Admin: 01/28/18 08:50 Dose: 650 mg Albuterol Sulfate (Ventolin 0.083% Nebulizer Soln -) 1 amp NEB Q4H PRN PRN Reason: SHORT OF BREATH/WHEEZING Last Admin: 01/31/18 20:25 Dose: 1 amp Amlodipine Besylate (Norvasc -) 5 mg PO DAILY [facility] Last Admin: 02/01/18 09:24 Dose: 5 mg Aspirin (Asa -) 81 mg PO DAILY [facility] Last Admin: 02/01/18 09:24 Dose: 81 mg Budesonide (Pulmicort 0.25 Mg Nebulizer -) 1 amp NEB RBID [facility] Last Admin: 02/01/18 08:15 Dose: 1 amp Escitalopram Oxalate (Lexapro -) 10 mg PO DAILY [facility] Last Admin: 02/01/18 09:24 Dose: 10 mg Eucalyptus/Menthol/Phenol/Sorbitol (Cepastat Lozenge -) 1 each MM Q4H PRN PRN Reason: SORE THROAT Last Admin: 01/26/18 10:18 Dose: 1 each Fludrocortisone Acetate (Florinef -) 0.1 mg PO DAILY [facility] Last Admin: 02/01/18 09:28 Dose: 0.1 mg Heparin Sodium (Porcine) (Heparin -) 5,000 unit SQ BID [facility] Last Admin: 02/01/18 09:29 Dose: 5,000 unit Aztreonam 1 gm/ Dextrose 50 mls @ 100 mls/hr IVPB Q8H-IV [facility]; Protocol Last Admin: 02/01/18 09:29 Dose: 100 mls/hr Vancomycin HCl 1,000 mg/ (Dextrose) 250 mls @ 166.667 mls/hr IVPB DAILY@1300 [facility]; Protocol Last Admin: 02/01/18 13:50 Dose: 166.667 mls/hr Insulin Aspart (Novolog Vial Sliding Scale -) 1 vial SQ BIDAC [facility]; Protocol Last Admin: 02/01/18 06:02 Dose: Not Given Losartan Potassium (Cozaar -) 25 mg PO DAILY [facility] Last Admin: 02/01/18 09:24 Dose: 25 mg Nadolol (Corgard -) 20 mg PO DAILY [facility] Last Admin: 02/01/18 09:24 Dose: 20 mg Pantoprazole Sodium (Protonix -) 40 mg PO DAILY [facility] Last Admin: 02/01/18 09:24 Dose: 40 mg Rosuvastatin Calcium (Crestor -) 20 mg PO HS [facility] Last Admin: 01/31/18 21:30 Dose: 20 mg Sitagliptin Phosphate (Januvia -) 100 mg PO DAILY@0700 [facility] Last Admin: 02/01/18 06:11 Dose: 100 mg A/P Pneumonia h/o KALIE COPD Liver Cirrhosis CAD HTN Hyperlipidemia - complete antibiotics - inhaled bronchodilators as needed - O2 to keep SpO2 >90% - will need outpt f/u of chest imaging - DVT prophylaxis
--- NOTE | 2018-02-01 17:33 | PN ---
Progress Note (short form) - Note Progress Note: s: still has cough, but better. no cp, palps, dizziness, lightheadedness o: Current Medications Generic Name Dose Route Start Last Admin Trade Name Freq PRN Reason Stop Dose Admin Acetaminophen 650 mg 01/28/18 07:52 01/28/18 08:50 Tylenol - PO 650 mg Q4H PRN Administration PAIN OR FEVER Albuterol Sulfate 1 amp 01/29/18 14:15 01/31/18 20:25 Ventolin 0.083% Nebulizer Soln - NEB 1 amp Q4H PRN Administration SHORT OF BREATH/WHEEZING Amlodipine Besylate 5 mg 01/25/18 10:00 02/01/18 09:24 Norvasc - PO 5 mg DAILY [facility] Administration Aspirin 81 mg 01/25/18 10:00 02/01/18 09:24 Asa - PO 81 mg DAILY [facility] Administration Budesonide 1 amp 01/28/18 08:00 02/01/18 08:15 Pulmicort 0.25 Mg Nebulizer - NEB 1 amp RBID [facility] Administration Escitalopram Oxalate 10 mg 01/25/18 10:00 02/01/18 09:24 Lexapro - PO 10 mg DAILY [facility] Administration Eucalyptus/Menthol/Phenol/Sorbitol 1 each 01/25/18 17:23 01/26/18 10:18 Cepastat Lozenge - MM 1 each Q4H PRN Administration SORE THROAT Fludrocortisone Acetate 0.1 mg 01/25/18 10:00 02/01/18 09:28 Florinef - PO 0.1 mg DAILY [facility] Administration Heparin Sodium (Porcine) 5,000 unit 01/24/18 22:00 02/01/18 09:29 Heparin - SQ 5,000 unit BID [facility] Administration Aztreonam 1 gm/ Dextrose 50 mls @ 100 mls/hr 01/25/18 18:00 02/01/18 17:29 IVPB 100 mls/hr Q8H-IV [facility] Administration Protocol Vancomycin HCl 1,000 mg/ 250 mls @ 166.667 mls/hr 01/28/18 13:00 02/01/18 13: 50 Dextrose IVPB 166.667 mls/hr DAILY@1300 [facility] Administration Protocol Insulin Aspart 1 vial 01/31/18 16:30 02/01/18 17:29 Novolog Vial Sliding Scale - SQ Not Given BIDAC [facility] Protocol Losartan Potassium 25 mg 01/25/18 10:00 02/01/18 09:24 Cozaar - PO 25 mg DAILY [facility] Administration Nadolol 20 mg 01/25/18 10:00 02/01/18 09:24 Corgard - PO 20 mg DAILY [facility] Administration Pantoprazole Sodium 40 mg 01/25/18 10:00 02/01/18 09:24 Protonix - PO 40 mg DAILY [facility] Administration Rosuvastatin Calcium 20 mg 01/24/18 22:00 01/31/18 21:30 Crestor - PO 20 mg HS [facility] Administration Sitagliptin Phosphate 100 mg 01/28/18 08:04 02/01/18 06:11 Januvia - PO 100 mg DAILY@0700 [facility] Administration Vital Signs: Vital Signs Period Temp Pulse Resp BP Sys/Donovan Pulse Ox Last 24 Hr 97.6 F-98.6 F 54-63 16-22 106-135/53-82 96-96 Constitutional: Yes: Well Nourished, No Distress, Calm Neck: Yes: Supple, Trachea Midline Respiratory: diffuse fine crackles bilaterally Gastrointestinal: Yes: Normal Bowel Sounds, Soft Cardiovascular: Yes: Regular Rate and Rhythm JVD: No Heart Sounds: Yes: S1, S2 Edema: No Peripheral Pulses WNL: Yes Integumentary: Yes: no jaundice diaphoresis Neurological: Yes: Alert, Oriented Laboratory Last Values WBC 6.5 K/mm3 (4.0-10.0) 01/28/18 06:30 RBC 4.22 M/mm3 (3.60-5.2) 01/28/18 06:30 Hgb 13.1 GM/dL (10.7-15.3) 01/28/18 06:30 Hct 37.8 % (32.4-45.2) 01/28/18 06:30 MCV 89.5 fl (80-96) 01/28/18 06:30 MCH 30.9 pg (25.7-33.7) 01/28/18 06:30 MCHC 34.6 g/dl (32.0-36.0) 01/28/18 06:30 RDW 14.4 % (11.6-15.6) 01/28/18 06:30 Plt Count 127 K/MM3 (134-434) L 01/28/18 06:30 MPV 8.1 fl (7.5-11.1) 01/28/18 06:30 Absolute Neuts (auto) 3.8 K/mm3 (1.5-8.0) 01/25/18 07:10 Neutrophils % 62.6 % (42.8-82.8) 01/25/18 07:10 Lymphocytes % 23.9 % (8-40) 01/25/18 07:10 Monocytes % 6.7 % (3.8-10.2) 01/25/18 07:10 Eosinophils % 6.2 % (0-4.5) H 01/25/18 07:10 Basophils % 0.6 % (0-2.0) 01/25/18 07:10 Nucleated RBC % 0 % (0-0) 01/25/18 07:10 PT with INR 14.30 SEC (9.7-13.0) H 01/24/18 16:30 INR 1.27 (0.83-1.09) H 01/24/18 16:30 PTT (Actin FS) 33.7 SECONDS (25.2-36.5) 01/24/18 16:30 VBG pH 7.43 (7.32-7.42) H 01/24/18 16:50 POC VBG pCO2 37.0 mmHg (38-52) L 01/24/18 16:50 POC VBG pO2 43.9 mmHg (28-48) 01/24/18 16:50 Mixed VBG HCO3 24.3 meq/L (19-25) 01/24/18 16:50 Sodium 144 mmol/L (136-145) 01/29/18 06:30 Potassium 4.0 mmol/L (3.5-5.1) 01/29/18 06:30 Chloride 111 mmol/L (98-107) H 01/29/18 06:30 Carbon Dioxide 29 mmol/L (21-32) 01/29/18 06:30 Anion Gap 4 MMOL/L (8-16) L 01/29/18 06:30 BUN 6 mg/dL (7-18) L 01/29/18 06:30 Creatinine 0.9 mg/dL (0.55-1.3) 01/29/18 06:30 Creat Clearance w eGFR > 60 (>60) 01/29/18 06:30 POC Glucometer 110 UNITS (80-120) 02/01/18 05:37 Random Glucose 115 mg/dL (74-106) H 01/29/18 06:30 Hemoglobin A1c % 6.5 % (4.2-6.3) H 01/25/18 07:10 Lactic Acid 2.2 mmol/L (0.4-2.0) H* 01/25/18 05:30 Calcium 8.4 mg/dL (8.5-10.1) L 01/29/18 06:30 Total Bilirubin 2.0 mg/dL (0.2-1) H 01/24/18 16:30 AST 72 U/L (15-37) H 01/24/18 16:30 ALT 41 U/L (13-61) 01/24/18 16:30 Alkaline Phosphatase 146 U/L (45-117) H 01/24/18 16:30 Troponin I < 0.02 ng/ml (0.00-0.05) 01/24/18 16:50 B-Natriuretic Peptide 66.23 pg/ml (5-450) 01/25/18 07:10 Total Protein 7.7 g/dl (6.4-8.2) 01/24/18 16:30 Albumin 3.2 g/dl (3.4-5.0) L 01/24/18 16:30 Triglycerides 56 mg/dL (0-150) 01/26/18 06:30 Cholesterol 129 mg/dL (50-200) 01/26/18 06:30 Total LDL Cholesterol 81 mg/dL (5-100) 01/26/18 06:30 HDL Cholesterol 59 mg/dL (40-60) 01/26/18 06:30 Urine Color Ltyellow 01/24/18 17:23 Urine Appearance Clear 01/24/18 17:23 Urine pH 7.0 (5.0-8.0) 01/24/18 17:23 Ur Specific [place] 1.004 (1.001-1.035) 01/24/18 17:23 Urine Protein Negative (NEGATIVE) 01/24/18 17:23 Urine Glucose (UA) Negative (NEGATIVE) 01/24/18 17:23 Urine Ketones Negative (NEGATIVE) 01/24/18 17:23 Urine Blood Negative (NEGATIVE) 01/24/18 17:23 Urine Nitrite Negative (NEGATIVE) 01/24/18 17:23 Urine Bilirubin Negative (<2.0 mg/dL) 01/24/18 17:23 Urine Urobilinogen 2.0 mg/dL (0.2-1.0) H 01/24/18 17:23 Ur Leukocyte Esterase Negative (NEGATIVE) 01/24/18 17:23 Vancomycin Pre-Dose 10.5 ug/ml (18-26) L 02/01/18 07:00 EKG: sinus rhythm, TWI anterior leads CXR: mild congestion, chronic interstitial changes echo 12/2015: nl lv/rv, mod-sev tr, rvsp 37 echo 08/2017: nl lv/rv, mild mr, mod tr, mod ar mibi 02/2017: nl mpi, nl lvef CT chest 01/2018 bronchiectasis and ground glass opacification unchanged since 2017, advanced hepatocellular disease a/p: 77 yo with hx dm, htn, hld, cvas/tias, cad s/p remote pci in P.R., cirrhosis (etoh cirrhosis with varices s/p banding by dr park), breast ca 12/2014, here with shortness of breath, chest pain Dyspnea, ILD, COPD - treating empirically for PNA per primary team - CXR shows mild congestion/chronic interstitial changes - received lasix 40 mg IV times one 01/25 - pulm and ID following, on IV abx - euvolemic, holding diuretics chest pain - likely pleuritic from cough, resolved - trop negative, EKG with new TWI compared to prior however given clinical picture not concerning for ischemia Cirrhosis of liver -sec to prior etoh abuse -no signs of bleeding on asa -on nadolol, h/o varices mod-sev tr - no signs right heart failure on exam - rv normal on echo and no sig pulm htn 08/2017 - monitor clinically Hypertension -cont nadolol, cozaar, amlodipine Chronic ischemic heart disease/cad s/p remote pci in P.R. ([facility]) -patent prior stent in lad and no sig residual dz on cath 10/2011 -no ischemia on recent mibi -no signs acs here -cont nadolol (on for portal htn) -cont asa, statin (previously cleared for statin by GI/liver, LFTs had been stable as outpt, remain stable here)
[2018-02-01] MEDS: ROSUVASTATIN CA 20 MG TABLET (FP) PO SCH (21:10)
[2018-02-02] MEDS ORDERED: PT OWN MED DRAWER 7, Y5N ONE ×5 (01:41→17:30)
[2018-02-02] MEDS: AZTREONAM 1 GM in DEXTROSE 5%-WATER - 50 ML IVPB SCH ×3 (01:44→17:33)
[2018-02-02] MEDS: INSULIN SLIDING SCALE (NOVOLOG) 1 VIAL SQ SCH ×2 (06:09→17:38)
[2018-02-02] MEDS: sitaGLIPtin PHOSPHATE 100 MG TABLET (FP) PO SCH (06:09)
[2018-02-02] MEDS: BUDESONIDE 0.25 MG/2ML INH SUSP VIAL NEB SCH ×2 (08:10→20:15)
--- NOTE | 2018-02-02 09:17 | PN ---
Progress Note, Physician - Current Medication List Current Medications: Active Medications Acetaminophen (Tylenol -) 650 mg PO Q4H PRN PRN Reason: PAIN OR FEVER Last Admin: 01/28/18 08:50 Dose: 650 mg Albuterol Sulfate (Ventolin 0.083% Nebulizer Soln -) 1 amp NEB Q4H PRN PRN Reason: SHORT OF BREATH/WHEEZING Last Admin: 01/31/18 20:25 Dose: 1 amp Amlodipine Besylate (Norvasc -) 5 mg PO DAILY [facility] Last Admin: 02/01/18 09:24 Dose: 5 mg Aspirin (Asa -) 81 mg PO DAILY [facility] Last Admin: 02/01/18 09:24 Dose: 81 mg Budesonide (Pulmicort 0.25 Mg Nebulizer -) 1 amp NEB RBID [facility] Last Admin: 02/02/18 08:10 Dose: 1 amp Escitalopram Oxalate (Lexapro -) 10 mg PO DAILY [facility] Last Admin: 02/01/18 09:24 Dose: 10 mg Eucalyptus/Menthol/Phenol/Sorbitol (Cepastat Lozenge -) 1 each MM Q4H PRN PRN Reason: SORE THROAT Last Admin: 01/26/18 10:18 Dose: 1 each Fludrocortisone Acetate (Florinef -) 0.1 mg PO DAILY [facility] Last Admin: 02/01/18 09:28 Dose: 0.1 mg Heparin Sodium (Porcine) (Heparin -) 5,000 unit SQ BID [facility] Last Admin: 02/01/18 21:10 Dose: 5,000 unit Aztreonam 1 gm/ Dextrose 50 mls @ 100 mls/hr IVPB Q8H-IV [facility]; Protocol Last Admin: 02/02/18 01:44 Dose: 100 mls/hr Vancomycin HCl 1,000 mg/ (Dextrose) 250 mls @ 166.667 mls/hr IVPB DAILY@1300 [facility]; Protocol Last Admin: 02/01/18 13:50 Dose: 166.667 mls/hr Insulin Aspart (Novolog Vial Sliding Scale -) 1 vial SQ BIDAC [facility]; Protocol Last Admin: 02/02/18 06:09 Dose: Not Given Losartan Potassium (Cozaar -) 25 mg PO DAILY [facility] Last Admin: 02/01/18 09:24 Dose: 25 mg Nadolol (Corgard -) 20 mg PO DAILY [facility] Last Admin: 02/01/18 09:24 Dose: 20 mg Pantoprazole Sodium (Protonix -) 40 mg PO DAILY [facility] Last Admin: 02/01/18 09:24 Dose: 40 mg Rosuvastatin Calcium (Crestor -) 20 mg PO HS [facility] Last Admin: 02/01/18 21:10 Dose: 20 mg Sitagliptin Phosphate (Januvia -) 100 mg PO DAILY@0700 [facility] Last Admin: 02/02/18 06:09 Dose: 100 mg - Objective Vital Signs: Vital Signs Temperature 98 F 02/02/18 07:03 Pulse Rate 60 02/02/18 07:03 Respiratory Rate 20 02/02/18 07:03 Blood Pressure 127/65 02/02/18 07:03 O2 Sat by Pulse Oximetry (%) 96 02/01/18 09:00 Cardiovascular: Yes: S1, S2 Respiratory: Yes: Rhonchi Gastrointestinal: Yes: Normal Bowel Sounds, Soft Labs: CBC, BMP 01/28/18 06:30 01/29/18 06:30 INR, PTT INR 1.27 (0.83-1.09) H 01/24/18 16:30 Assessment/Plan - Problems (1) Hypokalemia Assessment/Plan: improved Code(s): E87.6 - HYPOKALEMIA (2) Pneumonia Assessment/Plan: iv vanco and aztreonam---ID Follow up will continue till tmw Microbiology 01/25/18 06:00 Urine For Antigen Detection Legionella Antigen - Final 01/25/18 06:00 Urine For Antigen Detection Streptococcus pneumoniae Antigen (M - Final 01/25/18 06:00 Sputum - Expectorated Gram Stain - Final 01/25/18 06:00 Sputum - Expectorated Sputum Culture - Final Pseudomonas Aeruginosa bronchodilators oxygen pulm on board dvt ppx Code(s): J18.9 - PNEUMONIA, UNSPECIFIED ORGANISM Qualifiers: (3) Diabetes Assessment/Plan: avani Code(s): E11.9 - TYPE 2 DIABETES MELLITUS WITHOUT COMPLICATIONS Qualifiers: Diabetes mellitus type: type 2 (4) Depression Assessment/Plan: lexapro Code(s): F32.9 - MAJOR DEPRESSIVE DISORDER, SINGLE EPISODE, UNSPECIFIED
[2018-02-02] MEDS: NADOLOL 20 MG TABLET (FP) PO SCH (09:34)
[2018-02-02] MEDS: LOSARTAN POTASSIUM 25 MG TABLET PO SCH (09:34)
[2018-02-02] MEDS: ASPIRIN 81 MG CHEWABLE TABLETS PO SCH (09:34)
[2018-02-02] MEDS: amLODIPine BESYLATE 5 MG TABLET (FP) PO SCH (09:35)
[2018-02-02] MEDS: PANTOPRAZOLE 40 MG TABLET (FP) PO SCH (09:35)
[2018-02-02] MEDS: FLUDROCORTISONE ACETATE 0.1 MG TABLET (FP) PO SCH (09:35)
[2018-02-02] MEDS: ESCITALOPRAM OXALATE 10 MG TABLET (FP) PO SCH (09:35)
[2018-02-02] MEDS: HEPARIN NA (PORCINE) 5,000 UNITS/ML 1ML VIAL SQ SCH ×2 (09:35→22:46)
--- NOTE | 2018-02-02 10:07 | PN ---
Progress Note (short form) - Note Progress Note: PULMONARY Denies shortness of breath, + cough with yellow sputum. No fevers. Vital Signs Period Temp Pulse Resp BP Sys/Donovan Pulse Ox Last 24 Hr 97.6 F-98.6 F 54-60 18-20 115-130/54-65 Gen: NAD at rest Heart: RRR Lung: bilateral rales Abd: soft, nontender Ext: no edema CBC, BMP 01/28/18 06:30 01/29/18 06:30 Active Medications Acetaminophen (Tylenol -) 650 mg PO Q4H PRN PRN Reason: PAIN OR FEVER Last Admin: 01/28/18 08:50 Dose: 650 mg Albuterol Sulfate (Ventolin 0.083% Nebulizer Soln -) 1 amp NEB Q4H PRN PRN Reason: SHORT OF BREATH/WHEEZING Last Admin: 01/31/18 20:25 Dose: 1 amp Amlodipine Besylate (Norvasc -) 5 mg PO DAILY [facility] Last Admin: 02/02/18 09:35 Dose: 5 mg Aspirin (Asa -) 81 mg PO DAILY [facility] Last Admin: 02/02/18 09:34 Dose: 81 mg Budesonide (Pulmicort 0.25 Mg Nebulizer -) 1 amp NEB RBID [facility] Last Admin: 02/02/18 08:10 Dose: 1 amp Escitalopram Oxalate (Lexapro -) 10 mg PO DAILY [facility] Last Admin: 02/02/18 09:35 Dose: 10 mg Eucalyptus/Menthol/Phenol/Sorbitol (Cepastat Lozenge -) 1 each MM Q4H PRN PRN Reason: SORE THROAT Last Admin: 01/26/18 10:18 Dose: 1 each Fludrocortisone Acetate (Florinef -) 0.1 mg PO DAILY [facility] Last Admin: 02/02/18 09:35 Dose: 0.1 mg Heparin Sodium (Porcine) (Heparin -) 5,000 unit SQ BID [facility] Last Admin: 02/02/18 09:35 Dose: 5,000 unit Aztreonam 1 gm/ Dextrose 50 mls @ 100 mls/hr IVPB Q8H-IV [facility]; Protocol Last Admin: 02/02/18 01:44 Dose: 100 mls/hr Vancomycin HCl 1,000 mg/ (Dextrose) 250 mls @ 166.667 mls/hr IVPB DAILY@1300 [facility]; Protocol Last Admin: 02/01/18 13:50 Dose: 166.667 mls/hr Insulin Aspart (Novolog Vial Sliding Scale -) 1 vial SQ BIDAC [facility]; Protocol Last Admin: 02/02/18 06:09 Dose: Not Given Losartan Potassium (Cozaar -) 25 mg PO DAILY [facility] Last Admin: 02/02/18 09:34 Dose: 25 mg Nadolol (Corgard -) 20 mg PO DAILY [facility] Last Admin: 02/02/18 09:34 Dose: 20 mg Pantoprazole Sodium (Protonix -) 40 mg PO DAILY [facility] Last Admin: 02/02/18 09:35 Dose: 40 mg Rosuvastatin Calcium (Crestor -) 20 mg PO HS [facility] Last Admin: 02/01/18 21:10 Dose: 20 mg Sitagliptin Phosphate (Januvia -) 100 mg PO DAILY@0700 [facility] Last Admin: 02/02/18 06:09 Dose: 100 mg A/P Pneumonia h/o KALIE COPD Liver Cirrhosis CAD HTN Hyperlipidemia - complete antibiotics - ID f/u as sputum growing pansensitive pseudomonas - inhaled bronchodilators as needed - O2 to keep SpO2 >90% - will need outpt f/u of chest imaging - DVT prophylaxis
--- NOTE | 2018-02-02 11:03 | PN ---
Progress Note (short form) - Note Progress Note: s: still has cough, but better. no cp, palps, dizziness, lightheadedness o: Current Medications Generic Name Dose Route Start Last Admin Trade Name Freq PRN Reason Stop Dose Admin Acetaminophen 650 mg 01/28/18 07:52 01/28/18 08:50 Tylenol - PO 650 mg Q4H PRN Administration PAIN OR FEVER Albuterol Sulfate 1 amp 01/29/18 14:15 01/31/18 20:25 Ventolin 0.083% Nebulizer Soln - NEB 1 amp Q4H PRN Administration SHORT OF BREATH/WHEEZING Amlodipine Besylate 5 mg 01/25/18 10:00 02/02/18 09:35 Norvasc - PO 5 mg DAILY [facility] Administration Aspirin 81 mg 01/25/18 10:00 02/02/18 09:34 Asa - PO 81 mg DAILY [facility] Administration Budesonide 1 amp 01/28/18 08:00 02/02/18 08:10 Pulmicort 0.25 Mg Nebulizer - NEB 1 amp RBID [facility] Administration Escitalopram Oxalate 10 mg 01/25/18 10:00 02/02/18 09:35 Lexapro - PO 10 mg DAILY [facility] Administration Eucalyptus/Menthol/Phenol/Sorbitol 1 each 01/25/18 17:23 01/26/18 10:18 Cepastat Lozenge - MM 1 each Q4H PRN Administration SORE THROAT Fludrocortisone Acetate 0.1 mg 01/25/18 10:00 02/02/18 09:35 Florinef - PO 0.1 mg DAILY [facility] Administration Heparin Sodium (Porcine) 5,000 unit 01/24/18 22:00 02/02/18 09:35 Heparin - SQ 5,000 unit BID [facility] Administration Aztreonam 1 gm/ Dextrose 50 mls @ 100 mls/hr 01/25/18 18:00 02/02/18 10:40 IVPB 100 mls/hr Q8H-IV [facility] Administration Protocol Vancomycin HCl 1,000 mg/ 250 mls @ 166.667 mls/hr 01/28/18 13:00 02/01/18 13: 50 Dextrose IVPB 166.667 mls/hr DAILY@1300 [facility] Administration Protocol Insulin Aspart 1 vial 01/31/18 16:30 02/02/18 06:09 Novolog Vial Sliding Scale - SQ Not Given BIDAC [facility] Protocol Losartan Potassium 25 mg 01/25/18 10:00 02/02/18 09:34 Cozaar - PO 25 mg DAILY [facility] Administration Nadolol 20 mg 01/25/18 10:00 02/02/18 09:34 Corgard - PO 20 mg DAILY [facility] Administration Pantoprazole Sodium 40 mg 01/25/18 10:00 02/02/18 09:35 Protonix - PO 40 mg DAILY [facility] Administration Rosuvastatin Calcium 20 mg 01/24/18 22:00 02/01/18 21:10 Crestor - PO 20 mg HS [facility] Administration Sitagliptin Phosphate 100 mg 01/28/18 08:04 02/02/18 06:09 Januvia - PO 100 mg DAILY@0700 [facility] Administration Vital Signs: Vital Signs Period Temp Pulse Resp BP Sys/Donovan Pulse Ox Last 24 Hr 97.6 F-98.7 F 54-61 18-20 115-130/54-65 Constitutional: Yes: Well Nourished, No Distress, Calm Neck: Yes: Supple, Trachea Midline Respiratory: diffuse fine crackles bilaterally Gastrointestinal: Yes: Normal Bowel Sounds, Soft Cardiovascular: Yes: Regular Rate and Rhythm JVD: No Heart Sounds: Yes: S1, S2 Edema: No Peripheral Pulses WNL: Yes Integumentary: Yes: no jaundice diaphoresis Neurological: Yes: Alert, Oriented CBC, BMP 01/28/18 06:30 01/29/18 06:30 EKG: sinus rhythm, TWI anterior leads CXR: mild congestion, chronic interstitial changes echo 12/2015: nl lv/rv, mod-sev tr, rvsp 37 echo 08/2017: nl lv/rv, mild mr, mod tr, mod ar mibi 02/2017: nl mpi, nl lvef CT chest 01/2018 bronchiectasis and ground glass opacification unchanged since 2017, advanced hepatocellular disease a/p: 77 yo with hx dm, htn, hld, cvas/tias, cad s/p remote pci in [facility].R., cirrhosis (etoh cirrhosis with varices s/p banding by dr park), breast ca 12/2014, here with shortness of breath, chest pain Dyspnea, ILD, COPD - treating empirically for PNA per primary - CXR shows mild congestion/chronic interstitial changes - received lasix 40 mg IV times one 01/25 - pulm and ID following, on IV abx - euvolemic, holding diuretics chest pain - likely pleuritic from cough, resolved - trop negative, EKG with new TWI compared to prior however given clinical picture not concerning for ischemia Cirrhosis of liver -sec to prior etoh abuse -no signs of bleeding on asa -on nadolol, h/o varices mod-sev tr - no signs right heart failure on exam - rv normal on echo and no sig pulm htn 08/2017 - monitor clinically Hypertension -cont nadolol, cozaar, amlodipine Chronic ischemic heart disease/cad s/p remote pci in [facility] ([facility]) -patent prior stent in [facility] and no sig residual dz on cath 10/2011 -no ischemia on recent mibi -no signs acs here -cont nadolol (on for portal htn) -cont asa, statin (previously cleared for statin by GI/liver, LFTs had been stable as outpt, remain stable here) cardiac connolly stable
[2018-02-02] MEDS: VANCOMYCIN 1,000 MG in DEXTROSE 5%-WATER - 250 ML IVPB SCH (12:39)
[2018-02-02] MEDS ORDERED: INSULIN (NOVOLOG) ASPART 100 UNITS/ML 10ML VIAL ONE (16:34)
[2018-02-02] MEDS: ALBUTEROL SO4 0.083% IH SOL 2.5 MG/3 ML VIAL.NEB. NEB PRN (20:25)
--- NOTE | 2018-02-02 22:32 | PN ---
Progress Note, Physician History of Present Illness: Awake, alert Seated in bed No c/o chest pain Breathing non-labored Afebrile - Current Medication List Current Medications: Active Medications Acetaminophen (Tylenol -) 650 mg PO Q4H PRN PRN Reason: PAIN OR FEVER Last Admin: 01/28/18 08:50 Dose: 650 mg Albuterol Sulfate (Ventolin 0.083% Nebulizer Soln -) 1 amp NEB Q4H PRN PRN Reason: SHORT OF BREATH/WHEEZING Last Admin: 02/02/18 20:25 Dose: 1 amp Amlodipine Besylate (Norvasc -) 5 mg PO DAILY [facility] Last Admin: 02/02/18 09:35 Dose: 5 mg Aspirin (Asa -) 81 mg PO DAILY [facility] Last Admin: 02/02/18 09:34 Dose: 81 mg Budesonide (Pulmicort 0.25 Mg Nebulizer -) 1 amp NEB RBID [facility] Last Admin: 02/02/18 20:15 Dose: 1 amp Escitalopram Oxalate (Lexapro -) 10 mg PO DAILY [facility] Last Admin: 02/02/18 09:35 Dose: 10 mg Eucalyptus/Menthol/Phenol/Sorbitol (Cepastat Lozenge -) 1 each MM Q4H PRN PRN Reason: SORE THROAT Last Admin: 01/26/18 10:18 Dose: 1 each Fludrocortisone Acetate (Florinef -) 0.1 mg PO DAILY [facility] Last Admin: 02/02/18 09:35 Dose: 0.1 mg Heparin Sodium (Porcine) (Heparin -) 5,000 unit SQ BID [facility] Last Admin: 02/02/18 09:35 Dose: 5,000 unit Aztreonam 1 gm/ Dextrose 50 mls @ 100 mls/hr IVPB Q8H-IV [facility]; Protocol Last Admin: 02/02/18 17:33 Dose: 100 mls/hr Vancomycin HCl 1,000 mg/ (Dextrose) 250 mls @ 166.667 mls/hr IVPB DAILY@1300 [facility]; Protocol Last Admin: 02/02/18 12:39 Dose: 166.667 mls/hr Insulin Aspart (Novolog Vial Sliding Scale -) 1 vial SQ BIDAC [facility]; Protocol Last Admin: 02/02/18 17:38 Dose: 2 units Losartan Potassium (Cozaar -) 25 mg PO DAILY [facility] Last Admin: 02/02/18 09:34 Dose: 25 mg Nadolol (Corgard -) 20 mg PO DAILY [facility] Last Admin: 02/02/18 09:34 Dose: 20 mg Pantoprazole Sodium (Protonix -) 40 mg PO DAILY [facility] Last Admin: 02/02/18 09:35 Dose: 40 mg Rosuvastatin Calcium (Crestor -) 20 mg PO HS [facility] Last Admin: 02/01/18 21:10 Dose: 20 mg Sitagliptin Phosphate (Januvia -) 100 mg PO DAILY@0700 [facility] Last Admin: 02/02/18 06:09 Dose: 100 mg - Objective Vital Signs: Vital Signs Temperature 97.8 F 02/02/18 16:30 Pulse Rate 51 L 02/02/18 16:30 Respiratory Rate 20 02/02/18 16:30 Blood Pressure 104/55 L 02/02/18 16:30 O2 Sat by Pulse Oximetry (%) 96 02/01/18 09:00 Constitutional: Yes: No Distress Cardiovascular: Yes: Regular Rate and Rhythm, S1, S2 Respiratory: Yes: Rhonchi, Other (+ bilatersal crepitations) Gastrointestinal: Yes: Normal Bowel Sounds, Soft Labs: CBC, BMP 01/28/18 06:30 01/29/18 06:30 INR, PTT INR 1.27 (0.83-1.09) H 01/24/18 16:30 Assessment/Plan Bilateral pneumonia Multiple antibiotic allergies Hx Pulmonary MAC Continue vancomycin/ aztreonam day #9 Complete 10d course
[2018-02-02] MEDS: ROSUVASTATIN CA 20 MG TABLET (FP) PO SCH (22:45)
[2018-02-03] MEDS: AZTREONAM 1 GM in DEXTROSE 5%-WATER - 50 ML IVPB SCH ×3 (02:21→17:07)
[2018-02-03] MEDS: sitaGLIPtin PHOSPHATE 100 MG TABLET (FP) PO SCH (06:56)
[2018-02-03] MEDS: BUDESONIDE 0.25 MG/2ML INH SUSP VIAL NEB SCH ×2 (07:45→20:34)
[2018-02-03] MEDS: ALBUTEROL SO4 0.083% IH SOL 2.5 MG/3 ML VIAL.NEB. NEB PRN (07:45)
[2018-02-03] MEDS ORDERED: PT OWN MED DRAWER 7, Y5N ONE ×3 (09:53→16:59)
[2018-02-03] MEDS: ASPIRIN 81 MG CHEWABLE TABLETS PO SCH (09:59)
[2018-02-03] MEDS: NADOLOL 20 MG TABLET (FP) PO SCH (09:59)
[2018-02-03] MEDS: LOSARTAN POTASSIUM 25 MG TABLET PO SCH (10:00)
[2018-02-03] MEDS: PANTOPRAZOLE 40 MG TABLET (FP) PO SCH (10:00)
[2018-02-03] MEDS: ESCITALOPRAM OXALATE 10 MG TABLET (FP) PO SCH (10:00)
[2018-02-03] MEDS: amLODIPine BESYLATE 5 MG TABLET (FP) PO SCH (10:00)
[2018-02-03] MEDS: FLUDROCORTISONE ACETATE 0.1 MG TABLET (FP) PO SCH (10:00)
[2018-02-03] MEDS: HEPARIN NA (PORCINE) 5,000 UNITS/ML 1ML VIAL SQ SCH ×2 (10:02→23:14)
--- NOTE | 2018-02-03 11:00 | PN ---
Progress Note, Physician History of Present Illness: Awake, alert Seated in bed No c/o chest pain Breathing non-labored on RA Reports occasional cough productive of yellow sputum Afebrile - Current Medication List Current Medications: Active Medications Acetaminophen (Tylenol -) 650 mg PO Q4H PRN PRN Reason: PAIN OR FEVER Last Admin: 01/28/18 08:50 Dose: 650 mg Albuterol Sulfate (Ventolin 0.083% Nebulizer Soln -) 1 amp NEB Q4H PRN PRN Reason: SHORT OF BREATH/WHEEZING Last Admin: 02/03/18 07:45 Dose: 1 amp Amlodipine Besylate (Norvasc -) 5 mg PO DAILY [facility] Last Admin: 02/03/18 10:00 Dose: 5 mg Aspirin (Asa -) 81 mg PO DAILY [facility] Last Admin: 02/03/18 09:59 Dose: 81 mg Budesonide (Pulmicort 0.25 Mg Nebulizer -) 1 amp NEB RBID [facility] Last Admin: 02/03/18 07:45 Dose: 1 amp Escitalopram Oxalate (Lexapro -) 10 mg PO DAILY [facility] Last Admin: 02/03/18 10:00 Dose: 10 mg Eucalyptus/Menthol/Phenol/Sorbitol (Cepastat Lozenge -) 1 each MM Q4H PRN PRN Reason: SORE THROAT Last Admin: 01/26/18 10:18 Dose: 1 each Fludrocortisone Acetate (Florinef -) 0.1 mg PO DAILY [facility] Last Admin: 02/03/18 10:00 Dose: 0.1 mg Heparin Sodium (Porcine) (Heparin -) 5,000 unit SQ BID [facility] Last Admin: 02/03/18 10:02 Dose: 5,000 unit Aztreonam 1 gm/ Dextrose 50 mls @ 100 mls/hr IVPB Q8H-IV [facility]; Protocol Last Admin: 02/03/18 10:01 Dose: 100 mls/hr Vancomycin HCl 1,000 mg/ (Dextrose) 250 mls @ 166.667 mls/hr IVPB DAILY@1300 [facility]; Protocol Last Admin: 02/02/18 12:39 Dose: 166.667 mls/hr Insulin Aspart (Novolog Vial Sliding Scale -) 1 vial SQ BIDAC [facility]; Protocol Last Admin: 02/02/18 17:38 Dose: 2 units Losartan Potassium (Cozaar -) 25 mg PO DAILY [facility] Last Admin: 02/03/18 10:00 Dose: 25 mg Nadolol (Corgard -) 20 mg PO DAILY [facility] Last Admin: 02/03/18 09:59 Dose: 20 mg Pantoprazole Sodium (Protonix -) 40 mg PO DAILY [facility] Last Admin: 02/03/18 10:00 Dose: 40 mg Rosuvastatin Calcium (Crestor -) 20 mg PO HS [facility] Last Admin: 02/02/18 22:45 Dose: 20 mg Sitagliptin Phosphate (Januvia -) 100 mg PO DAILY@0700 [facility] Last Admin: 02/03/18 06:56 Dose: 100 mg - Objective Vital Signs: Vital Signs Temperature 97.6 F 02/03/18 06:00 Pulse Rate 61 02/03/18 06:00 Respiratory Rate 20 02/03/18 06:00 Blood Pressure 130/70 02/03/18 06:00 O2 Sat by Pulse Oximetry (%) 96 02/01/18 09:00 Constitutional: Yes: No Distress Cardiovascular: Yes: Regular Rate and Rhythm, S1, S2 Respiratory: Yes: Other (+ bilateral crepitations, scatterred rhonchi) Gastrointestinal: Yes: Soft. 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
--- NOTE | 2018-02-03 11:12 | PN ---
Progress Note (short form) - Note Progress Note: PULMONARY OFFERS NO COMPLAINTS Day 10 IV antibiotics VSS/AFEBRILE ANICTERIC SCATTERED RHONCHI S1S2 BS+ SOFT NO EDEMA LABS/MEDS/NOTES/IMAGES REVIEWED Spoke with Dr Matos ( PMD) he states she completed a full course of MAC treatment by Dr Petersen. A/P Pneumonia h/o KALIE treated COPD Liver Cirrhosis CAD HTN Hyperlipidemia - complete antibiotics as per ID - ID f/u as sputum growing pansensitive pseudomonas - inhaled bronchodilators as needed - O2 to keep SpO2 >90% - will need outpt f/u of chest imaging - DVT prophylaxis Omega Correa MD
--- NOTE | 2018-02-03 11:24 | PN ---
Progress Note (short form) - Note Progress Note: s: still has cough, but better. no cp, palps, dizziness, lightheadedness o: Current Medications Generic Name Dose Route Start Last Admin Trade Name Freq PRN Reason Stop Dose Admin Acetaminophen 650 mg 01/28/18 07:52 01/28/18 08:50 Tylenol - PO 650 mg Q4H PRN Administration PAIN OR FEVER Albuterol Sulfate 1 amp 01/29/18 14:15 02/03/18 07:45 Ventolin 0.083% Nebulizer Soln - NEB 1 amp Q4H PRN Administration SHORT OF BREATH/WHEEZING Amlodipine Besylate 5 mg 01/25/18 10:00 02/03/18 10:00 Norvasc - PO 5 mg DAILY [facility] Administration Aspirin 81 mg 01/25/18 10:00 02/03/18 09:59 Asa - PO 81 mg DAILY [facility] Administration Budesonide 1 amp 01/28/18 08:00 02/03/18 07:45 Pulmicort 0.25 Mg Nebulizer - NEB 1 amp RBID [facility] Administration Escitalopram Oxalate 10 mg 01/25/18 10:00 02/03/18 10:00 Lexapro - PO 10 mg DAILY [facility] Administration Eucalyptus/Menthol/Phenol/Sorbitol 1 each 01/25/18 17:23 01/26/18 10:18 Cepastat Lozenge - MM 1 each Q4H PRN Administration SORE THROAT Fludrocortisone Acetate 0.1 mg 01/25/18 10:00 02/03/18 10:00 Florinef - PO 0.1 mg DAILY [facility] Administration Heparin Sodium (Porcine) 5,000 unit 01/24/18 22:00 02/03/18 10:02 Heparin - SQ 5,000 unit BID [facility] Administration Aztreonam 1 gm/ Dextrose 50 mls @ 100 mls/hr 01/25/18 18:00 02/03/18 10:01 IVPB 100 mls/hr Q8H-IV [facility] Administration Protocol Vancomycin HCl 1,000 mg/ 250 mls @ 166.667 mls/hr 01/28/18 13:00 02/02/18 12: 39 Dextrose IVPB 166.667 mls/hr DAILY@1300 [facility] Administration Protocol Insulin Aspart 1 vial 01/31/18 16:30 02/02/18 17:38 Novolog Vial Sliding Scale - SQ 2 units BIDAC [facility] Administration Protocol Losartan Potassium 25 mg 01/25/18 10:00 02/03/18 10:00 Cozaar - PO 25 mg DAILY [facility] Administration Nadolol 20 mg 01/25/18 10:00 02/03/18 09:59 Corgard - PO 20 mg DAILY [facility] Administration Pantoprazole Sodium 40 mg 01/25/18 10:00 02/03/18 10:00 Protonix - PO 40 mg DAILY [facility] Administration Rosuvastatin Calcium 20 mg 01/24/18 22:00 02/02/18 22:45 Crestor - PO 20 mg HS [facility] Administration Sitagliptin Phosphate 100 mg 01/28/18 08:04 02/03/18 06:56 Januvia - PO 100 mg DAILY@0700 [facility] Administration Vital Signs: Vital Signs Period Temp Pulse Resp BP Sys/Donovan Pulse Ox Last 24 Hr 97.6 F-97.9 F 51-61 18-20 104-130/55-70 Constitutional: Yes: Well Nourished, No Distress, Calm Neck: Yes: Supple, Trachea Midline Respiratory: diffuse fine crackles bilaterally Gastrointestinal: Yes: Normal Bowel Sounds, Soft Cardiovascular: Yes: Regular Rate and Rhythm JVD: No Heart Sounds: Yes: S1, S2 Edema: No Peripheral Pulses WNL: Yes Integumentary: Yes: no jaundice diaphoresis Neurological: Yes: Alert, Oriented CBC, BMP 01/28/18 06:30 01/29/18 06:30 EKG: sinus rhythm, TWI anterior leads CXR: mild congestion, chronic interstitial changes echo 12/2015: nl lv/rv, mod-sev tr, rvsp 37 echo 08/2017: nl lv/rv, mild mr, mod tr, mod ar mibi 02/2017: nl mpi, nl lvef CT chest 01/2018 bronchiectasis and ground glass opacification unchanged since 2017, advanced hepatocellular disease a/p: 77 yo with hx dm, htn, hld, cvas/tias, cad s/p remote pci in [facility]R., cirrhosis (etoh cirrhosis with varices s/p banding by dr park), breast ca 12/2014, here with shortness of breath, chest pain Dyspnea, ILD, COPD - treating empirically for PNA per primary - CXR shows mild congestion/chronic interstitial changes - received lasix 40 mg IV times one 01/25 - pulm and ID following, on IV abx - euvolemic, holding diuretics chest pain - likely pleuritic from cough, resolved - trop negative, EKG with new TWI compared to prior however given clinical picture not concerning for ischemia Cirrhosis of liver -sec to prior etoh abuse -no signs of bleeding on asa -on nadolol, h/o varices mod-sev tr - no signs right heart failure on exam - rv normal on echo and no sig pulm htn 08/2017 - monitor clinically Hypertension -cont nadolol, cozaar, amlodipine Chronic ischemic heart disease/cad s/p remote pci in [facility] ([facility]) -patent prior stent in [place] and no sig residual dz on cath 10/2011 -no ischemia on recent mibi -no signs acs here -cont nadolol (on for portal htn) -cont asa, statin (previously cleared for statin by GI/liver, LFTs had been stable as outpt, remain stable here) cardiac connolly stable
[2018-02-03] MEDS: VANCOMYCIN 1,000 MG in DEXTROSE 5%-WATER - 250 ML IVPB SCH (13:05)
--- NOTE | 2018-02-03 15:13 | PN ---
Progress Note, Physician Chief Complaint: AWAKE ALERT FEELING BETTER - Current Medication List Current Medications: Active Medications Acetaminophen (Tylenol -) 650 mg PO Q4H PRN PRN Reason: PAIN OR FEVER Last Admin: 01/28/18 08:50 Dose: 650 mg Amlodipine Besylate (Norvasc -) 5 mg PO DAILY [facility] Last Admin: 02/03/18 10:00 Dose: 5 mg Aspirin (Asa -) 81 mg PO DAILY [facility] Last Admin: 02/03/18 09:59 Dose: 81 mg Budesonide (Pulmicort 0.25 Mg Nebulizer -) 1 amp NEB RBID [facility] Last Admin: 02/03/18 07:45 Dose: 1 amp Escitalopram Oxalate (Lexapro -) 10 mg PO DAILY [facility] Last Admin: 02/03/18 10:00 Dose: 10 mg Eucalyptus/Menthol/Phenol/Sorbitol (Cepastat Lozenge -) 1 each MM Q4H PRN PRN Reason: SORE THROAT Last Admin: 01/26/18 10:18 Dose: 1 each Fludrocortisone Acetate (Florinef -) 0.1 mg PO DAILY [facility] Last Admin: 02/03/18 10:00 Dose: 0.1 mg Heparin Sodium (Porcine) (Heparin -) 5,000 unit SQ BID [facility] Last Admin: 02/03/18 10:02 Dose: 5,000 unit Aztreonam 1 gm/ Dextrose 50 mls @ 100 mls/hr IVPB Q8H-IV [facility]; Protocol Last Admin: 02/03/18 10:01 Dose: 100 mls/hr Vancomycin HCl 1,000 mg/ (Dextrose) 250 mls @ 166.667 mls/hr IVPB DAILY@1300 [facility]; Protocol Last Admin: 02/03/18 13:05 Dose: 166.667 mls/hr Insulin Aspart (Novolog Vial Sliding Scale -) 1 vial SQ BIDAC [facility]; Protocol Last Admin: 02/02/18 17:38 Dose: 2 units Losartan Potassium (Cozaar -) 25 mg PO DAILY [facility] Last Admin: 02/03/18 10:00 Dose: 25 mg Nadolol (Corgard -) 20 mg PO DAILY [facility] Last Admin: 02/03/18 09:59 Dose: 20 mg Pantoprazole Sodium (Protonix -) 40 mg PO DAILY [facility] Last Admin: 02/03/18 10:00 Dose: 40 mg Rosuvastatin Calcium (Crestor -) 20 mg PO HS [facility] Last Admin: 02/02/18 22:45 Dose: 20 mg Sitagliptin Phosphate (Januvia -) 100 mg PO DAILY@0700 [facility] Last Admin: 02/03/18 06:56 Dose: 100 mg - Objective Vital Signs: Vital Signs Temperature 98.2 F 02/03/18 14:00 Pulse Rate 60 02/03/18 14:00 Respiratory Rate 18 02/03/18 14:00 Blood Pressure 116/61 02/03/18 14:00 O2 Sat by Pulse Oximetry (%) 96 02/01/18 09:00 Constitutional: Yes: No Distress Eyes: Yes: WNL HENT: Yes: WNL Neck: Yes: WNL Cardiovascular: Yes: WNL Respiratory: Yes: WNL Gastrointestinal: Yes: WNL Genitourinary: Yes: WNL Musculoskeletal: Yes: WNL Extremities: Yes: WNL Edema: No Peripheral Pulses WNL: Yes Integumentary: Yes: WNL Wound/Incision: Yes: Clean/Dry Neurological: Yes: WNL ...Motor Strength: WNL Psychiatric: Yes: WNL Labs: CBC, BMP 01/28/18 06:30 01/29/18 06:30 INR, PTT INR 1.27 (0.83-1.09) H 01/24/18 16:30 Problem List - Problems (1) Pneumonia Code(s): J18.9 - PNEUMONIA, UNSPECIFIED ORGANISM Qualifiers: (2) Anemia Code(s): D64.9 - ANEMIA, UNSPECIFIED (3) Angina pectoris Code(s): I20.9 - ANGINA PECTORIS, UNSPECIFIED (4) Anxiety Code(s): F41.9 - ANXIETY DISORDER, UNSPECIFIED (5) Asthma Code(s): J45.909 - UNSPECIFIED ASTHMA, UNCOMPLICATED Qualifiers: Asthma severity: unspecified severity Asthma complication type: uncomplicated (6) Hyperlipidemia Code(s): E78.5 - HYPERLIPIDEMIA, UNSPECIFIED Qualifiers: Hyperlipidemia type: pure hypercholesterolemia Qualified Code(s): E78.00 - Pure hypercholesterolemia, unspecified; E78.0 - Pure hypercholesterolemia (7) Hypertension Code(s): I10 - ESSENTIAL (PRIMARY) HYPERTENSION (8) S/P coronary artery stent placement Code(s): Z95.5 - PRESENCE OF CORONARY ANGIOPLASTY IMPLANT AND GRAFT Assessment/Plan IV ABX STOPPED TODAY OBSERVE OFF ABX LASIX CHANGE TO PO 02 NC 2L PULM/ID/CARDIO CONSULT OOB TO CHAIR DVT PROPHYLAXIS SNF PLACEMENT
[2018-02-03] MEDS: INSULIN SLIDING SCALE (NOVOLOG) 1 VIAL SQ SCH ×2 (16:41→16:42)
[2018-02-03] MEDS ORDERED: ROSUVASTATIN CA 10 MG TABLET (FP) ONE (23:12)
[2018-02-03] MEDS: ROSUVASTATIN CA 20 MG TABLET (FP) PO SCH (23:13)
[2018-02-04] MEDS: AZTREONAM 1 GM in DEXTROSE 5%-WATER - 50 ML IVPB SCH ×2 (02:29→11:28)
[2018-02-04] MEDS: INSULIN SLIDING SCALE (NOVOLOG) 1 VIAL SQ SCH ×2 (06:28→17:15)
[2018-02-04] MEDS: sitaGLIPtin PHOSPHATE 100 MG TABLET (FP) PO SCH (06:29)
[2018-02-04] MEDS: BUDESONIDE 0.25 MG/2ML INH SUSP VIAL NEB SCH ×2 (07:31→20:36)
[2018-02-04 07:59] LABS: HEMATOCRIT 37.3 % (32.4-45.2); HEMOGLOBIN 12.8 GM/dL (10.7-15.3); MCH 30.5 pg (25.7-33.7); MCHC 34.2 g/dl (32.0-36.0); MEAN CELL VOLUME 89.4 fl (80-96); MEAN PLT VOLUME 8.7 fl (7.5-11.1); PLATELET COUNT 84 K/MM3 (134-434); RBC 4.18 M/mm3 (3.60-5.2); RDW 14.4 % (11.6-15.6)
[2018-02-04 08:40] LABS: ANION GAP 7 MMOL/L (8-16); BLOOD UREA NITROGEN 7 mg/dL (7-18); CALCIUM 8.5 mg/dL (8.5-10.1); CHLORIDE 111 mmol/L (98-107); CO2 26 mmol/L (21-32); CREATININE 0.9 mg/dL (0.55-1.3); GLUCOSE,RANDOM 109 mg/dL (74-106); SODIUM 144 mmol/L (136-145)
--- NOTE | 2018-02-04 11:04 | PN ---
Progress Note (short form) - Note Progress Note: PULMONARY Denies shortness of breath, + cough improving. No fevers. Vital Signs Period Temp Pulse Resp BP Sys/Donovan Pulse Ox Last 24 Hr 97.9 F-98.3 F 56-65 18-20 110-128/59-65 96 Gen: NAD at rest Heart: RRR Lung: bilateral rales but less Abd: soft, nontender Ext: no edema CBC, BMP 02/04/18 07:06 02/04/18 07:06 Active Medications Acetaminophen (Tylenol -) 650 mg PO Q4H PRN PRN Reason: PAIN OR FEVER Last Admin: 01/28/18 08:50 Dose: 650 mg Amlodipine Besylate (Norvasc -) 5 mg PO DAILY [facility] Last Admin: 02/03/18 10:00 Dose: 5 mg Aspirin (Asa -) 81 mg PO DAILY [facility] Last Admin: 02/03/18 09:59 Dose: 81 mg Budesonide (Pulmicort 0.25 Mg Nebulizer -) 1 amp NEB RBID [facility] Last Admin: 02/04/18 07:31 Dose: 1 amp Escitalopram Oxalate (Lexapro -) 10 mg PO DAILY [facility] Last Admin: 02/03/18 10:00 Dose: 10 mg Eucalyptus/Menthol/Phenol/Sorbitol (Cepastat Lozenge -) 1 each MM Q4H PRN PRN Reason: SORE THROAT Last Admin: 01/26/18 10:18 Dose: 1 each Fludrocortisone Acetate (Florinef -) 0.1 mg PO DAILY [facility] Last Admin: 02/03/18 10:00 Dose: 0.1 mg Heparin Sodium (Porcine) (Heparin -) 5,000 unit SQ BID [facility] Last Admin: 02/03/18 23:14 Dose: 5,000 unit Aztreonam 1 gm/ Dextrose 50 mls @ 100 mls/hr IVPB Q8H-IV [facility]; Protocol Last Admin: 02/04/18 02:29 Dose: 100 mls/hr Vancomycin HCl 1,000 mg/ (Dextrose) 250 mls @ 166.667 mls/hr IVPB DAILY@1300 [facility]; Protocol Last Admin: 02/03/18 13:05 Dose: 166.667 mls/hr Insulin Aspart (Novolog Vial Sliding Scale -) 1 vial SQ BIDAC [facility]; Protocol Last Admin: 02/04/18 06:28 Dose: Not Given Losartan Potassium (Cozaar -) 25 mg PO DAILY [facility] Last Admin: 02/03/18 10:00 Dose: 25 mg Nadolol (Corgard -) 20 mg PO DAILY [facility] Last Admin: 02/03/18 09:59 Dose: 20 mg Pantoprazole Sodium (Protonix -) 40 mg PO DAILY [facility] Last Admin: 02/03/18 10:00 Dose: 40 mg Rosuvastatin Calcium (Crestor -) 20 mg PO HS [facility] Last Admin: 02/03/18 23:13 Dose: 20 mg Sitagliptin Phosphate (Januvia -) 100 mg PO DAILY@0700 [facility] Last Admin: 02/04/18 06:29 Dose: 100 mg A/P Pneumonia h/o KALIE COPD Liver Cirrhosis CAD HTN Hyperlipidemia - complete antibiotics - inhaled bronchodilators as needed - O2 to keep SpO2 >90% - will need outpt f/u of chest imaging - DVT prophylaxis
[2018-02-04] MEDS: amLODIPine BESYLATE 5 MG TABLET (FP) PO SCH (11:14)
[2018-02-04] MEDS: PANTOPRAZOLE 40 MG TABLET (FP) PO SCH (11:14)
[2018-02-04] MEDS: ASPIRIN 81 MG CHEWABLE TABLETS PO SCH (11:14)
[2018-02-04] MEDS: ESCITALOPRAM OXALATE 10 MG TABLET (FP) PO SCH (11:14)
[2018-02-04] MEDS: LOSARTAN POTASSIUM 25 MG TABLET PO SCH (11:14)
[2018-02-04] MEDS: HEPARIN NA (PORCINE) 5,000 UNITS/ML 1ML VIAL SQ SCH ×2 (11:15→22:53)
[2018-02-04] MEDS: NADOLOL 20 MG TABLET (FP) PO SCH (11:15)
[2018-02-04] MEDS ORDERED: PT OWN MED DRAWER 7, Y5N ONE ×2 (11:23→20:15)
[2018-02-04] MEDS: FLUDROCORTISONE ACETATE 0.1 MG TABLET (FP) PO SCH (11:23)
--- NOTE | 2018-02-04 12:26 | DS ---
Physical Examination Vital Signs: Vital Signs Temperature 98.2 F 02/04/18 11:13 Pulse Rate 62 02/04/18 11:13 Respiratory Rate 18 02/04/18 11:13 Blood Pressure 120/55 L 02/04/18 11:13 O2 Sat by Pulse Oximetry (%) 96 02/03/18 21:00 Cardiovascular: Yes: S1, S2 Respiratory: Yes: Rhonchi Gastrointestinal: Yes: Normal Bowel Sounds, Soft Labs: CBC, BMP 02/04/18 07:06 02/04/18 07:06 Discharge Summary Reason For Visit: PNEUMONIA Current Active Problems Hypokalemia (Acute) Pneumonia (Acute) Hospital Course: - Problems (1) Hypokalemia Assessment/Plan: replace renal check mag Code(s): E87.6 - HYPOKALEMIA (2) Pneumonia Assessment/Plan: iv vanco and axtreonam--dc id follow up noted Microbiology 01/25/18 06:00 Urine For Antigen Detection Legionella Antigen - Final 01/25/18 06:00 Urine For Antigen Detection Streptococcus pneumoniae Antigen (M - Final 01/25/18 06:00 Sputum - Expectorated Gram Stain - Final 01/25/18 06:00 Sputum - Expectorated Sputum Culture - Final Pseudomonas Aeruginosa bronchodilators oxygen pulm on board dvt ppx Code(s): J18.9 - PNEUMONIA, UNSPECIFIED ORGANISM Qualifiers: (3) Diabetes Assessment/Plan: syl aleman to asses meds off insulin Code(s): E11.9 - TYPE 2 DIABETES MELLITUS WITHOUT COMPLICATIONS Qualifiers: Diabetes mellitus type: type 2 (4) Depression Assessment/Plan: lexapro Code(s): F32.9 - MAJOR DEPRESSIVE DISORDER, SINGLE EPISODE, UNSPECIFIED Condition: Stable - Instructions Referrals: Kraig Matos MD [Primary Care Provider] - 1 Week - Home Medications Comprehensive Discharge Medication List: Ambulatory Orders Aspirin [ASA -] 81 mg PO DAILY 10/09/14 Albuterol Sulfate [Proventil HFA Inhaler -] 1 - 2 inh PO Q4H PRN 07/03/15 Nadolol [Corgard -] 20 mg PO DAILY tablet 09/05/17 Albuterol 0.083% Nebulizer Elizabeth [Ventolin 0.083% Nebulizer Soln -] 1 amp NEB PRN PRN 01/24/18 Amlodipine Besylate [Norvasc -] 5 mg PO DAILY 01/24/18 Escitalopram Oxalate [Lexapro -] 10 mg PO DAILY 01/24/18 Fludrocortisone Acetate [Florinef -] 0.1 mg PO DAILY 01/24/18 Fluticasone Furoate [Arnuity Ellipta] 100 mcg IH DAILY 01/24/18 Insulin Lispro [Humalog Kwikpen U-100] 100 unit SQ ASDIR 01/24/18 Losartan Potassium [Cozaar -] 25 mg PO DAILY 01/24/18 Pantoprazole Sodium [Protonix] 40 mg PO DAILY 01/24/18 Rosuvastatin [Crestor -] 20 mg PO DAILY 01/24/[address] [place] [Incruse Ellipta] 62.5 mcg IH DAILY 01/24/18 Sitagliptin Phosphate [Januvia -] 100 mg PO DAILY@0700 #30 ud 02/04/18
[2018-02-04] MEDS ORDERED: POTASSIUM CHLORIDE ORAL LIQUID 20 MEQ/15 ML PO ONE (12:30)
[2018-02-04] MEDS: ROSUVASTATIN CA 20 MG TABLET (FP) PO SCH (22:52)
[2018-02-05] MEDS: sitaGLIPtin PHOSPHATE 100 MG TABLET (FP) PO SCH (06:52)
[2018-02-05] MEDS: INSULIN SLIDING SCALE (NOVOLOG) 1 VIAL SQ SCH ×2 (06:52→17:55)
[2018-02-05] MEDS: BUDESONIDE 0.25 MG/2ML INH SUSP VIAL NEB SCH ×2 (07:30→20:37)
[2018-02-05 09:31] LABS: ANION GAP 11 MMOL/L (8-16); BLOOD UREA NITROGEN 5 mg/dL (7-18); CALCIUM 8.9 mg/dL (8.5-10.1); CHLORIDE 112 mmol/L (98-107); CO2 22 mmol/L (21-32); CREATININE 0.7 mg/dL (0.55-1.3); GLUCOSE,RANDOM 89 mg/dL (74-106); MAGNESIUM 2.1 mg/dL (1.8-2.4); POTASSIUM 3.3 mmol/L (3.5-5.1); SODIUM 145 mmol/L (136-145)
[2018-02-05] MEDS ORDERED: PT OWN MED DRAWER 7, Y5N ONE (09:37)
[2018-02-05] MEDS: HEPARIN NA (PORCINE) 5,000 UNITS/ML 1ML VIAL SQ SCH ×2 (09:50→21:31)
[2018-02-05] MEDS: LOSARTAN POTASSIUM 25 MG TABLET PO SCH (09:51)
[2018-02-05] MEDS: FLUDROCORTISONE ACETATE 0.1 MG TABLET (FP) PO SCH (09:51)
[2018-02-05] MEDS: amLODIPine BESYLATE 5 MG TABLET (FP) PO SCH (09:51)
[2018-02-05] MEDS: ESCITALOPRAM OXALATE 10 MG TABLET (FP) PO SCH (09:52)
[2018-02-05] MEDS: PANTOPRAZOLE 40 MG TABLET (FP) PO SCH (09:52)
[2018-02-05] MEDS: ASPIRIN 81 MG CHEWABLE TABLETS PO SCH (09:52)
[2018-02-05] MEDS: NADOLOL 20 MG TABLET (FP) PO SCH (09:52)
[2018-02-05] MEDS ORDERED: POTASSIUM CHLORIDE TABS 10 MEQ TABLET.ER (FP) PO ONE (10:00)
--- NOTE | 2018-02-05 10:47 | CONSULT ---
Consult - text type - Consultation Consultation Note: Renal Consult for Hypokalemia This is a 77 year old woman with hx of CAD, Hypertension, Hyperlipidemia, DM, Anemia, GIB, Alocholic cirrhosis, CVA, Left Breast Ca who presented with sob, cough an found to have PNA and now with hypokalemia. Pt denies any N/V/D. Tolerating oral diet. No diuretic use or frequent urination. On PPI. ON IV Abx for PNA, feels better overall. Denies any CP, SOB, Muscle weakness. PMhx: as above Allergies: as listed in EMR Family hx: NC Social Hx: Former etoh ROS: as per HPI, all other petinent ros negative Home Medications Medication Instructions Recorded Aspirin [ASA -] 81 mg PO DAILY 10/09/14 Albuterol Sulfate [Proventil HFA 1 - 2 inh PO Q4H PRN 07/03/15 Inhaler -] Nadolol [Corgard -] 20 mg PO DAILY tablet 09/05/17 Albuterol 0.083% Nebulizer Elizabeth 1 amp NEB PRN PRN 01/24/18 [Ventolin 0.083% Nebulizer Soln -] Amlodipine Besylate [Norvasc -] 5 mg PO DAILY 01/24/18 Escitalopram Oxalate [Lexapro -] 10 mg PO DAILY 01/24/18 Fludrocortisone Acetate [Florinef 0.1 mg PO DAILY 01/24/18 -] Fluticasone Furoate [Arnuity 100 mcg IH DAILY 01/24/18 Ellipta] Insulin Lispro [Humalog Kwikpen 100 unit SQ ASDIR 01/24/18 U-100] Losartan Potassium [Cozaar -] 25 mg PO DAILY 01/24/18 Pantoprazole Sodium [Protonix] 40 mg PO DAILY 01/24/18 Rosuvastatin [Crestor -] 20 mg PO DAILY 01/24/18 Umeclidinium [place] [Incruse 62.5 mcg IH DAILY 01/24/18 Ellipta] Sitagliptin Phosphate [Januvia -] 100 mg PO DAILY@0700 #30 ud 02/04/18 Intake & Output 02/02/18 02/03/18 02/04/18 02/05/18 23:59 23:59 23:59 23:59 Intake Total 500 950 850 Balance 500 950 850 Vital Signs Temperature 97.6 F 02/05/18 07:33 Pulse Rate 62 02/05/18 07:33 Respiratory Rate 20 02/05/18 07:33 Blood Pressure 125/56 L 02/05/18 07:33 O2 Sat by Pulse Oximetry (%) 98 02/04/18 09:10 NAD awake and alert neck supple, no JVD RRR, No M/R Dec Bs, midl rales soft NT/ND No LE edema, clubbing or cyanosis CBC, BMP 02/04/18 07:06 02/05/18 06:30 Current Medications Acetaminophen (Tylenol -) 650 mg PO Q4H PRN PRN Reason: PAIN OR FEVER Last Admin: 01/28/18 08:50 Dose: 650 mg Amlodipine Besylate (Norvasc -) 5 mg PO DAILY [facility] Last Admin: 02/05/18 09:51 Dose: 5 mg Aspirin (Asa -) 81 mg PO DAILY [facility] Last Admin: 02/05/18 09:52 Dose: 81 mg Budesonide (Pulmicort 0.25 Mg Nebulizer -) 1 amp NEB RBID [facility] Last Admin: 02/05/18 07:30 Dose: 1 amp Escitalopram Oxalate (Lexapro -) 10 mg PO DAILY [facility] Last Admin: 02/05/18 09:52 Dose: 10 mg Eucalyptus/Menthol/Phenol/Sorbitol (Cepastat Lozenge -) 1 each MM Q4H PRN PRN Reason: SORE THROAT Last Admin: 01/26/18 10:18 Dose: 1 each Fludrocortisone Acetate (Florinef -) 0.1 mg PO DAILY [facility] Last Admin: 02/05/18 09:51 Dose: 0.1 mg Heparin Sodium (Porcine) (Heparin -) 5,000 unit SQ BID [facility] Last Admin: 02/05/18 09:50 Dose: 5,000 unit Insulin Aspart ([facility]; Protocol Last Admin: 02/05/18 06:52 Dose: Not Given Losartan Potassium (Cozaar -) 25 mg PO DAILY [facility] Last Admin: 02/05/18 09:51 Dose: 25 mg Nadolol (Corgard -) 20 mg PO DAILY [facility] Last Admin: 02/05/18 09:52 Dose: 20 mg Pantoprazole Sodium (Protonix -) 40 mg PO DAILY [facility] Last Admin: 02/05/18 09:52 Dose: 40 mg Rosuvastatin Calcium (Crestor -) 20 mg PO HS [facility] Last Admin: 02/04/18 22:52 Dose: 20 mg Sitagliptin Phosphate (Januvia -) 100 mg PO DAILY@0700 [facility] Last Admin: 02/05/18 06:52 Dose: 100 mg 77 year old woman with hx of CAD, Hypertension, Hyperlipidemia, DM, Anemia, GIB , Alocholic cirrhosis, CVA, Left Breast Ca who presented with sob, cough an found to have PNA and now with hypokalemia. #Hypokalmeia w/o diuretics/GI losses #PNA #Thrombocytopenia #Hypertension K losses likely due to renal losses in some cases exogenous steroids (florinef) can lead to salt retention and increased urinary K loss Would supplant KCL 20-40meq daily for now Trend Mg levels and keep > 2 Continue ARB BP at goal Continue Abx as per ID Trend K daily Trend Plts counts, not on heparin Thank you Aman Whitehead DO
--- NOTE | 2018-02-05 11:19 | PN ---
Progress Note (short form) - Note Progress Note: s: no cp, palps, dizziness, lightheadedness, sob o: Current Medications Generic Name Dose Route Start Last Admin Trade Name Freq PRN Reason Stop Dose Admin Acetaminophen 650 mg 01/28/18 07:52 01/28/18 08:50 Tylenol - PO 650 mg Q4H PRN Administration PAIN OR FEVER Amlodipine Besylate 5 mg 01/25/18 10:00 02/05/18 09:51 Norvasc - PO 5 mg DAILY [facility] Administration Aspirin 81 mg 01/25/18 10:00 02/05/18 09:52 Asa - PO 81 mg DAILY [facility] Administration Budesonide 1 amp 01/28/18 08:00 02/05/18 07:30 Pulmicort 0.25 Mg Nebulizer - NEB 1 amp RBID [facility] Administration Escitalopram Oxalate 10 mg 01/25/18 10:00 02/05/18 09:52 Lexapro - PO 10 mg DAILY [facility] Administration Eucalyptus/Menthol/Phenol/Sorbitol 1 each 01/25/18 17:23 01/26/18 10:18 Cepastat Lozenge - MM 1 each Q4H PRN Administration SORE THROAT Fludrocortisone Acetate 0.1 mg 01/25/18 10:00 02/05/18 09:51 Florinef - PO 0.1 mg DAILY [facility] Administration Heparin Sodium (Porcine) 5,000 unit 01/24/18 22:00 02/05/18 09:50 Heparin - SQ 5,000 unit BID [facility] Administration Insulin Aspart 1 vial 01/31/18 16:30 02/05/18 06:52 Novolog Vial Sliding Scale - SQ Not Given B[facility]AC [facility] Protocol Losartan Potassium 25 mg 01/25/18 10:00 02/05/18 09:51 Cozaar - PO 25 mg DAILY [facility] Administration Nadolol 20 mg 01/25/18 10:00 02/05/18 09:52 Corgard - PO 20 mg DAILY [facility] Administration Pantoprazole Sodium 40 mg 01/25/18 10:00 02/05/18 09:52 Protonix - PO 40 mg DAILY [facility] Administration Rosuvastatin Calcium 20 mg 01/24/18 22:00 02/04/18 22:52 Crestor - PO 20 mg HS [facility] Administration Sitagliptin Phosphate 100 mg 01/28/18 08:04 02/05/18 06:52 Januvia - PO 100 mg DAILY@0700 [facility] Administration Vital Signs: Vital Signs Period Temp Pulse Resp BP Sys/Donovan Pulse Ox Last 24 Hr 97.6 F-98.2 F 58-62 18-20 114-125/56-61 Constitutional: Yes: Well Nourished, No Distress, Calm Neck: Yes: Supple, Trachea Midline Respiratory: cta bl nl eff Gastrointestinal: Yes: Normal Bowel Sounds, Soft Cardiovascular: Yes: Regular Rate and Rhythm JVD: No Heart Sounds: Yes: S1, S2 Edema: No Integumentary: Yes: no jaundice diaphoresis Neurological: Yes: Alert, Oriented CBC, BMP 02/04/18 07:06 02/05/18 06:30 EKG: sinus rhythm, TWI anterior leads CXR: mild congestion, chronic interstitial changes echo 12/2015: nl lv/rv, mod-sev tr, rvsp 37 echo 08/2017: nl lv/rv, mild mr, mod tr, mod ar mibi 02/2017: nl mpi, nl lvef CT chest 01/2018 bronchiectasis and ground glass opacification unchanged since 2017, advanced hepatocellular disease a/p: 77 yo with hx dm, htn, hld, cvas/tias, cad s/p remote pci in P.R., cirrhosis (etoh cirrhosis with varices s/p banding by dr park), breast ca 12/2014, here with shortness of breath, chest pain Dyspnea, ILD, COPD - s/p abx for pna chest pain - likely pleuritic from cough, resolved - trop negative, EKG with new TWI compared to prior however given clinical picture not concerning for ischemia Cirrhosis of liver -sec to prior etoh abuse -no signs of bleeding on asa -on nadolol, h/o varices mod-sev tr - no signs right heart failure on exam - rv normal on echo and no sig pulm htn 08/2017 Hypertension -cont nadolol, cozaar, amlodipine Chronic ischemic heart disease/cad s/p remote pci in P.R. (lad) -patent prior stent in lad and no sig residual dz on cath 10/2011 -no ischemia on recent mibi -no signs acs here -cont nadolol (on for portal htn) -cont asa, statin (previously cleared for statin by GI/liver, LFTs had been stable as outpt, remain stable here) cardiac connolly stable
[2018-02-05] MEDS ORDERED: POTASSIUM CHLORIDE TABS 20 MEQ TABLET.ER (FP) PO ONE (11:30)
--- NOTE | 2018-02-05 11:32 | PN ---
Progress Note, Physician - Current Medication List Current Medications: Active Medications Acetaminophen (Tylenol -) 650 mg PO Q4H PRN PRN Reason: PAIN OR FEVER Last Admin: 01/28/18 08:50 Dose: 650 mg Amlodipine Besylate (Norvasc -) 5 mg PO DAILY [facility] Last Admin: 02/05/18 09:51 Dose: 5 mg Aspirin (Asa -) 81 mg PO DAILY [facility] Last Admin: 02/05/18 09:52 Dose: 81 mg Budesonide (Pulmicort 0.25 Mg Nebulizer -) 1 amp NEB RBID [facility] Last Admin: 02/05/18 07:30 Dose: 1 amp Escitalopram Oxalate (Lexapro -) 10 mg PO DAILY [facility] Last Admin: 02/05/18 09:52 Dose: 10 mg Eucalyptus/Menthol/Phenol/Sorbitol (Cepastat Lozenge -) 1 each MM Q4H PRN PRN Reason: SORE THROAT Last Admin: 01/26/18 10:18 Dose: 1 each Fludrocortisone Acetate (Florinef -) 0.1 mg PO DAILY [facility] Last Admin: 02/05/18 09:51 Dose: 0.1 mg Heparin Sodium (Porcine) (Heparin -) 5,000 unit SQ BID [facility] Last Admin: 02/05/18 09:50 Dose: 5,000 unit Insulin Aspart ([facility] -) [facility] Protocol Last Admin: 02/05/18 06:52 Dose: Not Given Losartan Potassium (Cozaar -) 25 mg PO DAILY [facility] Last Admin: 02/05/18 09:51 Dose: 25 mg Nadolol (Corgard -) 20 mg PO DAILY [facility] Last Admin: 02/05/18 09:52 Dose: 20 mg Pantoprazole Sodium (Protonix -) 40 mg PO DAILY [facility] Last Admin: 02/05/18 09:52 Dose: 40 mg Potassium Chloride (K-Dur -) 20 meq PO DAILY [facility] Rosuvastatin Calcium (Crestor -) 20 mg PO HS [facility] Last Admin: 02/04/18 22:52 Dose: 20 mg Sitagliptin Phosphate (Januvia -) 100 mg PO DAILY@0700 [facility] Last Admin: 02/05/18 06:52 Dose: 100 mg - Objective Vital Signs: Vital Signs Temperature 97.6 F 02/05/18 07:33 Pulse Rate 62 02/05/18 07:33 Respiratory Rate 20 02/05/18 07:33 Blood Pressure 125/56 L 02/05/18 07:33 O2 Sat by Pulse Oximetry (%) 98 02/04/18 09:10 Cardiovascular: Yes: S1, S2 Respiratory: Yes: Regular, CTA Bilaterally Gastrointestinal: Yes: Normal Bowel Sounds, Soft Labs: CBC, BMP 02/04/18 07:06 02/05/18 06:30 INR, PTT INR 1.27 (0.83-1.09) H 01/24/18 16:30 Assessment/Plan - Problems (1) Hypokalemia Assessment/Plan: improved Code(s): E87.6 - HYPOKALEMIA (2) Pneumonia Assessment/Plan: iv vanco and aztreonam---ID Follow up will continue till tmw Microbiology 01/25/18 06:00 Urine For Antigen Detection Legionella Antigen - Final 01/25/18 06:00 Urine For Antigen Detection Streptococcus pneumoniae Antigen (M - Final 01/25/18 06:00 Sputum - Expectorated Gram Stain - Final 01/25/18 06:00 Sputum - Expectorated Sputum Culture - Final Pseudomonas Aeruginosa bronchodilators oxygen pulm on board dvt ppx Code(s): J18.9 - PNEUMONIA, UNSPECIFIED ORGANISM Qualifiers: (3) Diabetes Assessment/Plan: avani Code(s): E11.9 - TYPE 2 DIABETES MELLITUS WITHOUT COMPLICATIONS Qualifiers: Diabetes mellitus type: type 2 (4) Depression Assessment/Plan: lexapro Code(s): F32.9 - MAJOR DEPRESSIVE DISORDER, SINGLE EPISODE, UNSPECIFIED (5) Thrombocytopenia Assessment/Plan: Monitor-hem consult
[2018-02-05 12:59] LABS: BASO % 0.8 % (0-2.0); EOS % 5.9 % (0-4.5); HEMATOCRIT 37.5 % (32.4-45.2); HEMOGLOBIN 12.6 GM/dL (10.7-15.3); LYMPH % 28.3 % (8-40); MCH 30.1 pg (25.7-33.7); MCHC 33.6 g/dl (32.0-36.0); MEAN CELL VOLUME 89.5 fl (80-96); MEAN PLT VOLUME 8.7 fl (7.5-11.1); MONO % 8.5 % (3.8-10.2); NEUT % 56.5 % (42.8-82.8); PLATELET COUNT 84 K/MM3 (134-434); RBC 4.19 M/mm3 (3.60-5.2); RDW 14.5 % (11.6-15.6); WHITE BLOOD COUNT 5.3 K/mm3 (4.0-10.0)
--- NOTE | 2018-02-05 13:10 | PN ---
Progress Note (short form) - Note Progress Note: PULMONARY Denies shortness of breath, + cough resolving. No fevers. Vital Signs Period Temp Pulse Resp BP Sys/Donovan Pulse Ox Last 24 Hr 97.6 F-98.2 F 58-62 18-20 114-125/56-61 Gen: NAD at rest Heart: RRR Lung: bilateral rales but less Abd: soft, nontender Ext: no edema CBC, BMP 02/05/18 12:32 02/05/18 06:30 Active Medications Acetaminophen (Tylenol -) 650 mg PO Q4H PRN PRN Reason: PAIN OR FEVER Last Admin: 01/28/18 08:50 Dose: 650 mg Amlodipine Besylate (Norvasc -) 5 mg PO DAILY [facility] Last Admin: 02/05/18 09:51 Dose: 5 mg Aspirin (Asa -) 81 mg PO DAILY [facility] Last Admin: 02/05/18 09:52 Dose: 81 mg Budesonide (Pulmicort 0.25 Mg Nebulizer -) 1 amp NEB RBID [facility] Last Admin: 02/05/18 07:30 Dose: 1 amp Escitalopram Oxalate (Lexapro -) 10 mg PO DAILY [facility] Last Admin: 02/05/18 09:52 Dose: 10 mg Eucalyptus/Menthol/Phenol/Sorbitol (Cepastat Lozenge -) 1 each MM Q4H PRN PRN Reason: SORE THROAT Last Admin: 01/26/18 10:18 Dose: 1 each Fludrocortisone Acetate (Florinef -) 0.1 mg PO DAILY [facility] Last Admin: 02/05/18 09:51 Dose: 0.1 mg Heparin Sodium (Porcine) (Heparin -) 5,000 unit SQ BID [facility] Last Admin: 02/05/18 09:50 Dose: 5,000 unit Insulin Aspart ([facility] Sliding Scale -) [facility] Last Admin: 02/05/18 06:52 Dose: Not Given Losartan Potassium (Cozaar -) 25 mg PO DAILY [facility] Last Admin: 02/05/18 09:51 Dose: 25 mg Nadolol (Corgard -) 20 mg PO DAILY [facility] Last Admin: 02/05/18 09:52 Dose: 20 mg Pantoprazole Sodium (Protonix -) 40 mg PO DAILY [facility] Last Admin: 02/05/18 09:52 Dose: 40 mg Potassium Chloride (K-Dur -) 20 meq PO DAILY [facility] Rosuvastatin Calcium (Crestor -) 20 mg PO HS [facility] Last Admin: 02/04/18 22:52 Dose: 20 mg Sitagliptin Phosphate (Januvia -) 100 mg PO DAILY@0700 [facility] Last Admin: 02/05/18 06:52 Dose: 100 mg A/P Pneumonia h/o KALIE COPD Liver Cirrhosis CAD HTN Hyperlipidemia - completed antibiotics - inhaled bronchodilators as needed - O2 to keep SpO2 >90% - will need outpt f/u of chest imaging - DVT prophylaxis
--- NOTE | 2018-02-05 15:10 | CONSULT ---
Consult - text type - Consultation Consultation Note: This is a 77 year old woman with hx of CAD, Hypertension, Hyperlipidemia, DM, Anemia, GIB, Alocholic cirrhosis, CVA, Left Breast Ca who presented with sob, cough an found to have PNA and now with hypokalemia. Pt denies any N/V/D. Tolerating oral diet. No diuretic use or frequent urination. On PPI. ON IV Abx for PNA, feels better overall. Denies any CP, SOB, Muscle weakness. PMhx: as above Allergies: as listed in EMR Family hx: NC Social Hx: Former etoh ROS: as per HPI, all other petinent ros negative Last Vital Signs Temp Pulse Resp BP Pulse Ox 98 F 62 18 120/52 L 98 02/05/18 10:00 02/05/18 10:00 02/05/18 10:00 02/05/18 10:00 02/05/18 09:00 Cor: RSR, No murmurs, No gallops Lungs: Clear to P&A Abd: Soft, Normal bowel sounds, No organomegaly Ext:No significant edema Skin: No rashes, Integument intact Abnormal Lab Results 02/05/18 02/05/18 06:30 12:32 Plt Count 84 L Eosinophils % 5.9 H Potassium 3.3 L Chloride 112 H BUN 5 L Active Medications Generic Name Dose Route Start Last Admin Trade Name Freq PRN Reason Stop Dose Admin Acetaminophen 650 mg 01/28/18 07:52 01/28/18 08:50 Tylenol - PO 650 mg Q4H PRN Administration PAIN OR FEVER Amlodipine Besylate 5 mg 01/25/18 10:00 02/05/18 09:51 Norvasc - PO 5 mg DAILY KANNAN Administration Aspirin 81 mg 01/25/18 10:00 02/05/18 09:52 Asa - PO 81 mg DAILY KANNAN Administration Budesonide 1 amp 01/28/18 08:00 02/05/18 07:30 Pulmicort 0.25 Mg Nebulizer - NEB 1 amp RBID KANNAN Administration Escitalopram Oxalate 10 mg 01/25/18 10:00 02/05/18 09:52 Lexapro - PO 10 mg DAILY KANNAN Administration Eucalyptus/Menthol/Phenol/Sorbitol 1 each 01/25/18 17:23 01/26/18 10:18 Cepastat Lozenge - MM 1 each Q4H PRN Administration SORE THROAT Fludrocortisone Acetate 0.1 mg 01/25/18 10:00 02/05/18 09:51 Florinef - PO 0.1 mg DAILY KANNAN Administration Heparin Sodium (Porcine) 5,000 unit 01/24/18 22:00 02/05/18 09:50 Heparin - SQ 5,000 unit BID KANNAN Administration Insulin Aspart 1 vial 01/31/18 16:30 02/05/18 06:52 Novolog Vial Sliding Scale - SQ Not Given BIDAC KANNAN Protocol Losartan Potassium 25 mg 01/25/18 10:00 02/05/18 09:51 Cozaar - PO 25 mg DAILY KANNAN Administration Nadolol 20 mg 01/25/18 10:00 02/05/18 09:52 Corgard - PO 20 mg DAILY KANNAN Administration Pantoprazole Sodium 40 mg 01/25/18 10:00 02/05/18 09:52 Protonix - PO 40 mg DAILY KANNAN Administration Potassium Chloride 20 meq 02/06/18 10:00 K-Dur - PO DAILY KANNAN Rosuvastatin Calcium 20 mg 01/24/18 22:00 02/04/18 22:52 Crestor - PO 20 mg HS KANNAN Administration Sitagliptin Phosphate 100 mg 01/28/18 08:04 02/05/18 06:52 Januvia - PO 100 mg DAILY@0700 KANNAN Administration A/P 77 year old woman with hx of CAD, Hypertension, Hyperlipidemia, DM, Anemia, GIB , Alocholic cirrhosis, CVA, Left Breast Ca who presented with sob, cough an found to have PNA and now with hypokalemia. Thrombocytopenia ---chronic, mild--baseline 90s to 150 Most likely ITP worsened due to pneumonia Check B12/folate/TSH/fT4/ check u/s liver/spleen monitor
--- NOTE | 2018-02-05 15:47 | CONSULT ---
Consult Consult Specialty:: endocrine Referred by:: dr.annabi smith Reason for Consultation:: diabetes melllitus - History of Present Illness Chief Complaint: high sugar History of Present Illness: 77 y/o woman PMHx of: CAD with stent(1978, LAD), HTN, HLD, DM, Anemia, GI Bleed , Alcohol Cirrhosis, CVA, Hyponatremia,adrenal insufiency L- Breast Ca, Anxiety. 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 poor prep in past.), Stent (cardiac), Tonsillectomy, Upper Endoscopy (h/o esoph varices. on nadalol. s/p banding. due to surveillance egd in 01/2015) - Alcohol/Substance Use Hx Alcohol Use: No History of Substance Use: reports: None - Smoking History Smoking history: Former smoker Have you smoked in the past 12 months: No Aproximately how many cigarettes per day: 0 If you are a former smoker, when did you quit?: over 30 years ago - Social History Usual Living Arrangement: Alone ADL: Independent History of Recent Travel: No Home Medications - Allergies Allergies/Adverse Reactions: Allergies Allergy/AdvReac Type Severity Reaction Status Date / Time levofloxacin [From Levaquin] Allergy Intermediate Rash Verified 09/01/17 20:34 Penicillins Allergy Rash Verified 09/01/17 20:34 sulfamethoxazole AdvReac Intermediate Verified 09/01/17 20:34 [From Bactrim] trimethoprim [From Bactrim] AdvReac Intermediate Verified 09/01/17 20:34 - Home Medications Home Medications: Ambulatory Orders Aspirin [ASA -] 81 mg PO DAILY 10/09/14 Albuterol Sulfate [Proventil HFA Inhaler -] 1 - 2 inh PO Q4H PRN 07/03/15 Nadolol [Corgard -] 20 mg PO DAILY tablet 09/05/17 Albuterol 0.083% Nebulizer Elizabeth [Ventolin 0.083% Nebulizer Soln -] 1 amp NEB PRN PRN 01/24/18 Amlodipine Besylate [Norvasc -] 5 mg PO DAILY 01/24/18 Escitalopram Oxalate [Lexapro -] 10 mg PO DAILY 01/24/18 Fludrocortisone Acetate [Florinef -] 0.1 mg PO DAILY 01/24/18 Fluticasone Furoate [Arnuity Ellipta] 100 mcg IH DAILY 01/24/18 Insulin Lispro [Humalog Kwikpen U-100] 100 unit SQ ASDIR 01/24/18 Losartan Potassium [Cozaar -] 25 mg PO DAILY 01/24/18 Pantoprazole Sodium [Protonix] 40 mg PO DAILY 01/24/18 Rosuvastatin [Crestor -] 20 mg PO DAILY 01/24/18 Umeclidinium [place] [Incruse Ellipta] 62.5 mcg IH DAILY 01/24/18 Sitagliptin Phosphate [Januvia -] 100 mg PO DAILY@0700 #30 ud 02/04/18 Potassium Chloride [K-Dur -] 20 meq PO DAILY #30 tablet.er 02/05/18 Family Disease History - Family Disease History Family Disease History: Diabetes: Brother Review of Systems - Review of Systems Constitutional: reports: Lethargy, Weakness Eyes: reports: No Symptoms HENT: reports: No Symptoms Neck: reports: No Symptoms Cardiovascular: reports: Shortness of Breath Respiratory: reports: Exercise Intolerance, SOB on Exertion Gastrointestinal: reports: Constipation Genitourinary: reports: No Symptoms Breasts: reports: Pain, Skin Changes Musculoskeletal: reports: Muscle Cramps, Muscle Weakness Integumentary: reports: No Symptoms Neurological: reports: No Symptoms Physical Exam Vital Signs: Vital Signs Temperature 98 F 02/05/18 10:00 Pulse Rate 62 02/05/18 10:00 Respiratory Rate 18 02/05/18 10:00 Blood Pressure 120/52 L 02/05/18 10:00 O2 Sat by Pulse Oximetry (%) 98 02/05/18 09:00 Constitutional: Yes: Anxious Eyes: Yes: EOM Intact HENT: Yes: Normocephalic Neck: Yes: Trachea Midline Cardiovascular: Yes: Regular Rate and Rhythm Respiratory: Yes: CTA Bilaterally Gastrointestinal: Yes: Normal Bowel Sounds ...Rectal Exam: Yes: Deferred Musculoskeletal: Yes: WNL Extremities: Yes: WNL Neurological: Yes: Alert, Oriented Labs: CBC, BMP 02/05/18 12:32 02/05/18 06:30 Problem List - Problems (1) Type 2 diabetes mellitus with diabetic neuropathic arthropathy Code(s): E11.610 - TYPE 2 DIABETES MELLITUS W DIABETIC NEUROPATHIC ARTHROPATHY (2) Anemia Code(s): D64.9 - ANEMIA, UNSPECIFIED (3) Angina pectoris Code(s): I20.9 - ANGINA PECTORIS, UNSPECIFIED (4) Anterior epistaxis Code(s): R04.0 - EPISTAXIS Assessment/Plan Current Active Problems adrenal mineralcorticoid defiency diabetes mellitus hyperglycemia/insulin dependent Hypokalemia (Acute) Pneumonia (Acute) Abnormal Lab Results 02/05/18 02/05/18 06:30 12:32 Plt Count 84 L Eosinophils % 5.9 H Potassium 3.3 L Chloride 112 H BUN 5 L Laboratory Results - last 24 hr 02/04/18 02/05/18 02/05/18 17:14 06:30 06:51 WBC RBC Hgb Hct MCV MCH MCHC RDW Plt Count MPV Absolute Neuts (auto) Neutrophils % Lymphocytes % Monocytes % Eosinophils % Basophils % Nucleated RBC % Sodium 145 Potassium 3.3 L Chloride 112 H Carbon Dioxide 22 Anion Gap 11 BUN 5 L Creatinine 0.7 Creat Clearance w eGFR > 60 POC Glucometer 145 91 Random Glucose 89 Calcium 8.9 Magnesium 2.1 02/05/18 12:32 WBC 5.3 RBC 4.19 Hgb 12.6 Hct 37.5 MCV 89.5 MCH 30.1 MCHC 33.6 RDW 14.5 Plt Count 84 L MPV 8.7 Absolute Neuts (auto) 3.0 Neutrophils % 56.5 Lymphocytes % 28.3 Monocytes % 8.5 Eosinophils % 5.9 H Basophils % 0.8 Nucleated RBC % 0 Sodium Potassium Chloride Carbon Dioxide Anion Gap BUN Creatinine Creat Clearance w eGFR POC Glucometer Random Glucose Calcium Magnesium plan: bgm qid novolog insulin doses florinef .1mg hs levemir 20 units am hold if sugar below 100mg/dl januvia 50mg daily
--- NOTE | 2018-02-05 15:50 | PN ---
Progress Note (short form) - Note Progress Note: addendum dx lactic acidosis with pneumonia Problem List - Problems (1) Pneumonia Code(s): J18.9 - PNEUMONIA, UNSPECIFIED ORGANISM Qualifiers: (2) Anemia Code(s): D64.9 - ANEMIA, UNSPECIFIED (3) Angina pectoris Code(s): I20.9 - ANGINA PECTORIS, UNSPECIFIED (4) Anxiety Code(s): F41.9 - ANXIETY DISORDER, UNSPECIFIED (5) Asthma Code(s): J45.909 - UNSPECIFIED ASTHMA, UNCOMPLICATED (6) Hyperlipidemia Code(s): E78.5 - HYPERLIPIDEMIA, UNSPECIFIED Qualifiers: Qualified Code(s): E78.00 - Pure hypercholesterolemia, unspecified; E78.0 - Pure hypercholesterolemia (7) Hypertension Code(s): I10 - ESSENTIAL (PRIMARY) HYPERTENSION (8) S/P coronary artery stent placement Code(s): Z95.5 - PRESENCE OF CORONARY ANGIOPLASTY IMPLANT AND GRAFT
[2018-02-05] MEDS ORDERED: ROSUVASTATIN CA 10 MG TABLET (FP) ONE (20:08)
[2018-02-05] MEDS: ROSUVASTATIN CA 20 MG TABLET (FP) PO SCH (21:31)
[2018-02-06] MEDS: sitaGLIPtin PHOSPHATE 100 MG TABLET (FP) PO SCH (06:48)
[2018-02-06] MEDS: INSULIN (LEVEMIR) 100 UNITS/ML UNITS SQ SCH (06:57)
[2018-02-06 07:01] LABS: BASO % 1.2 % (0-2.0); EOS % 7.2 % (0-4.5); HEMATOCRIT 37.5 % (32.4-45.2); HEMOGLOBIN 12.8 GM/dL (10.7-15.3); LYMPH % 31.4 % (8-40); MCH 30.4 pg (25.7-33.7); MEAN CELL VOLUME 89.2 fl (80-96); MEAN PLT VOLUME 8.9 fl (7.5-11.1); MONO % 8.1 % (3.8-10.2); NEUT % 52.1 % (42.8-82.8); PLATELET COUNT 87 K/MM3 (134-434); RDW 14.9 % (11.6-15.6); WHITE BLOOD COUNT 5.5 K/mm3 (4.0-10.0)
[2018-02-06 07:16] LABS: ANION GAP 10 MMOL/L (8-16); BLOOD UREA NITROGEN 6 mg/dL (7-18); CALCIUM 8.9 mg/dL (8.5-10.1); CHLORIDE 113 mmol/L (98-107); CO2 23 mmol/L (21-32); CREATININE 0.8 mg/dL (0.55-1.3); GLUCOSE,RANDOM 103 mg/dL (74-106); POTASSIUM 3.5 mmol/L (3.5-5.1); SODIUM 146 mmol/L (136-145)
[2018-02-06] MEDS ORDERED: INSULIN (LEVEMIR) 100 UNITS/ML UNITS SQ ONE (07:19)
[2018-02-06] MEDS ORDERED: PT OWN MED DRAWER 7, Y5N ONE ×4 (07:20→21:15)
[2018-02-06] MEDS: INSULIN SLIDING SCALE (NOVOLOG) 1 VIAL SQ SCH ×2 (07:36→17:40)
[2018-02-06] MEDS: BUDESONIDE 0.25 MG/2ML INH SUSP VIAL NEB SCH ×2 (07:40→20:00)
--- NOTE | 2018-02-06 08:20 | PN ---
Progress Note (short form) - Note Progress Note: PLAN AND NOTES REVIEWED OVER THE WEEKEND PATIENT HAD WORSENING OF ITP AND ADRENAL INSUFFICIENCY ON CORTEF 1MG HS HEMATOLOGY WORKUP IN PROGRESS PLATLETS DOWN TO 87. WILL MONITOR LABS/F/U SONO LIVER SPLEEN Problem List - Problems (1) Pneumonia Code(s): J18.9 - PNEUMONIA, UNSPECIFIED ORGANISM Qualifiers: (2) Anemia Code(s): D64.9 - ANEMIA, UNSPECIFIED (3) Angina pectoris Code(s): I20.9 - ANGINA PECTORIS, UNSPECIFIED (4) Anxiety Code(s): F41.9 - ANXIETY DISORDER, UNSPECIFIED (5) Asthma Code(s): J45.909 - UNSPECIFIED ASTHMA, UNCOMPLICATED Qualifiers: Asthma severity: unspecified severity Asthma complication type: uncomplicated (6) Hyperlipidemia Code(s): E78.5 - HYPERLIPIDEMIA, UNSPECIFIED Qualifiers: Hyperlipidemia type: pure hypercholesterolemia Qualified Code(s): E78.00 - Pure hypercholesterolemia, unspecified; E78.0 - Pure hypercholesterolemia (7) Hypertension Code(s): I10 - ESSENTIAL (PRIMARY) HYPERTENSION (8) S/P coronary artery stent placement Code(s): Z95.5 - PRESENCE OF CORONARY ANGIOPLASTY IMPLANT AND GRAFT
--- NOTE | 2018-02-06 10:35 | PN ---
Progress Note (short form) - Note Progress Note: Breathing continues to slowly improve, No CP or SOB. Cough is resolving. No fevers. Intake & Output 02/03/18 02/04/18 02/05/18 02/06/18 23:59 23:59 23:59 23:59 Intake Total 950 850 700 Balance 950 850 700 Last Vital Signs Temp Pulse Resp BP Pulse Ox 98 F 61 20 124/65 98 02/06/18 06:38 02/06/18 06:38 02/05/18 21:28 02/06/18 06:38 02/05/18 21:00 Active Medications Acetaminophen (Tylenol -) 650 mg PO Q4H PRN PRN Reason: PAIN OR FEVER Last Admin: 01/28/18 08:50 Dose: 650 mg Amlodipine Besylate (Norvasc -) 5 mg PO DAILY [facility] Last Admin: 02/05/18 09:51 Dose: 5 mg Aspirin (Asa -) 81 mg PO DAILY [facility] Last Admin: 02/05/18 09:52 Dose: 81 mg Budesonide (Pulmicort 0.25 Mg Nebulizer -) 1 amp NEB RBID [facility] Last Admin: 02/05/18 20:37 Dose: 1 amp Escitalopram Oxalate (Lexapro -) 10 mg PO DAILY [facility] Last Admin: 02/05/18 09:52 Dose: 10 mg Eucalyptus/Menthol/Phenol/Sorbitol (Cepastat Lozenge -) 1 each MM Q4H PRN PRN Reason: SORE THROAT Last Admin: 01/26/18 10:18 Dose: 1 each Fludrocortisone Acetate (Florinef -) 0.1 mg PO DAILY [facility] Last Admin: 02/05/18 09:51 Dose: 0.1 mg Insulin Aspart (Novolog Vial Sliding Scale -) 1 vial SQ BIDAC [facility]; Protocol Last Admin: 02/06/18 07:36 Dose: Not Given Insulin Detemir (Levemir Vial) 20 units SQ AM [facility] Last Admin: 02/06/18 06:57 Dose: 20 units Losartan Potassium (Cozaar -) 25 mg PO DAILY [facility] Last Admin: 02/05/18 09:51 Dose: 25 mg Nadolol (Corgard -) 20 mg PO DAILY [facility] Last Admin: 02/05/18 09:52 Dose: 20 mg Pantoprazole Sodium (Protonix -) 40 mg PO DAILY [facility] Last Admin: 02/05/18 09:52 Dose: 40 mg Potassium Chloride (K-Dur -) 20 meq PO DAILY [facility] Rosuvastatin Calcium (Crestor -) 20 mg PO HS [facility] Last Admin: 02/05/18 21:31 Dose: 20 mg Sitagliptin Phosphate (Januvia -) 100 mg PO DAILY@0700 [facility] Last Admin: 02/06/18 06:48 Dose: 100 mg Gen: NAD at rest Heart: RRR Lung: Improving bibasilar rhonchi Abd: soft, nontender Ext: no edema Laboratory Results - last 24 hr 02/05/18 02/06/18 02/06/18 12:32 06:00 06:00 WBC 5.3 5.5 RBC 4.19 4.20 Hgb 12.6 12.8 Hct 37.5 37.5 MCV 89.5 89.2 MCH 30.1 30.4 MCHC 33.6 34.0 RDW 14.5 14.9 Plt Count 84 L 87 L MPV 8.7 8.9 Absolute Neuts (auto) 3.0 2.9 Neutrophils % 56.5 52.1 Lymphocytes % 28.3 31.4 Monocytes % 8.5 8.1 Eosinophils % 5.9 H 7.2 H Basophils % 0.8 1.2 Nucleated RBC % 0 0 Sodium 146 H Potassium 3.5 Chloride 113 H Carbon Dioxide 23 Anion Gap 10 BUN 6 L Creatinine 0.8 Creat Clearance w eGFR > 60 POC Glucometer Random Glucose 103 Calcium 8.9 Cortisol PM Sample 02/06/18 02/06/18 06:00 06:47 WBC RBC Hgb Hct MCV MCH MCHC RDW Plt Count MPV Absolute Neuts (auto) Neutrophils % Lymphocytes % Monocytes % Eosinophils % Basophils % Nucleated RBC % Sodium Potassium Chloride Carbon Dioxide Anion Gap BUN Creatinine Creat Clearance w eGFR POC Glucometer 107 Random Glucose Calcium Cortisol PM Sample Cancelled A/P Pneumonia h/o KALIE COPD Liver Cirrhosis CAD HTN Hyperlipidemia ITP Suspected adrenal insufficiency - completed antibiotics - inhaled bronchodilators as needed - O2 to keep SpO2 >90% - will need outpt f/u of chest imaging - DVT prophylaxis Dr Viveros
[2018-02-06] MEDS: LOSARTAN POTASSIUM 25 MG TABLET PO SCH (11:00)
[2018-02-06] MEDS: ASPIRIN 81 MG CHEWABLE TABLETS PO SCH (11:00)
[2018-02-06] MEDS: POTASSIUM CHLORIDE TABS 20 MEQ TABLET.ER (FP) PO SCH (11:00)
[2018-02-06] MEDS: NADOLOL 20 MG TABLET (FP) PO SCH (11:00)
[2018-02-06] MEDS: amLODIPine BESYLATE 5 MG TABLET (FP) PO SCH (11:00)
[2018-02-06] MEDS: PANTOPRAZOLE 40 MG TABLET (FP) PO SCH (11:00)
[2018-02-06] MEDS: ESCITALOPRAM OXALATE 10 MG TABLET (FP) PO SCH (11:00)
[2018-02-06] MEDS: FLUDROCORTISONE ACETATE 0.1 MG TABLET (FP) PO SCH (11:07)
--- NOTE | 2018-02-06 13:16 | PN ---
Progress Note, Physician Chief Complaint: The patient sen in her bed . Feeling well. Poor appetite. No chest pain. No shortness of breath. History of Present Illness: This is a 77 year old woman with hx of CAD, Hypertension, Hyperlipidemia, DM, Anemia, GIB, Alocholic cirrhosis of liver, CVA, Left Breast Ca who presented with sob, cough an found to have PNA and Hypokalemia. Pt denies any N/V/D. - Current Medication List Current Medications: Active Medications Acetaminophen (Tylenol -) 650 mg PO Q4H PRN PRN Reason: PAIN OR FEVER Last Admin: 01/28/18 08:50 Dose: 650 mg Amlodipine Besylate (Norvasc -) 5 mg PO DAILY [facility] Last Admin: 02/06/18 11:00 Dose: 5 mg Aspirin (Asa -) 81 mg PO DAILY [facility] Last Admin: 02/06/18 11:00 Dose: 81 mg Budesonide (Pulmicort 0.25 Mg Nebulizer -) 1 amp NEB RBID [facility] Last Admin: 02/06/18 07:40 Dose: 1 amp Escitalopram Oxalate (Lexapro -) 10 mg PO DAILY [facility] Last Admin: 02/06/18 11:00 Dose: 10 mg Eucalyptus/Menthol/Phenol/Sorbitol (Cepastat Lozenge -) 1 each MM Q4H PRN PRN Reason: SORE THROAT Last Admin: 01/26/18 10:18 Dose: 1 each Fludrocortisone Acetate (Florinef -) 0.1 mg PO DAILY [facility] Last Admin: 02/06/18 11:07 Dose: 0.1 mg Insulin Aspart (Novolog Vial Sliding Scale -) 1 vial SQ BIDAC [facility]; Protocol Last Admin: 02/06/18 07:36 Dose: Not Given Insulin Detemir (Levemir Vial) 20 units SQ AM [facility] Last Admin: 02/06/18 06:57 Dose: 20 units Losartan Potassium (Cozaar -) 25 mg PO DAILY [facility] Last Admin: 02/06/18 11:00 Dose: 25 mg Nadolol (Corgard -) 20 mg PO DAILY [facility] Last Admin: 02/06/18 11:00 Dose: 20 mg Pantoprazole Sodium (Protonix -) 40 mg PO DAILY [facility] Last Admin: 02/06/18 11:00 Dose: 40 mg Potassium Chloride (K-Dur -) 20 meq PO DAILY [facility] Last Admin: 02/06/18 11:00 Dose: 20 meq Rosuvastatin Calcium (Crestor -) 20 mg PO HS [facility] Last Admin: 02/05/18 21:31 Dose: 20 mg Sitagliptin Phosphate (Januvia -) 100 mg PO DAILY@0700 [facility] Last Admin: 02/06/18 06:48 Dose: 100 mg - Objective Vital Signs: Vital Signs Temperature 98 F 02/06/18 06:38 Pulse Rate 61 02/06/18 06:38 Respiratory Rate 20 02/05/18 21:28 Blood Pressure 124/65 02/06/18 06:38 O2 Sat by Pulse Oximetry (%) 98 02/05/18 21:00 Constitutional: Yes: Well Nourished, No Distress Eyes: Yes: Conjunctiva Clear HENT: Yes: Normocephalic Neck: Yes: Supple, Trachea Midline Respiratory: Yes: Regular, CTA Bilaterally Gastrointestinal: Yes: Normal Bowel Sounds, Soft Edema: No Neurological: Yes: Alert, Oriented Labs: CBC, BMP 02/06/18 06:00 02/06/18 06:00 INR, PTT INR 1.27 (0.83-1.09) H 01/24/18 16:30 Problem List - Problems (1) Hypokalemia Code(s): E87.6 - HYPOKALEMIA (2) Pneumonia Code(s): J18.9 - PNEUMONIA, UNSPECIFIED ORGANISM Qualifiers: (3) Type 2 diabetes mellitus with diabetic neuropathic arthropathy Code(s): E11.610 - TYPE 2 DIABETES MELLITUS W DIABETIC NEUROPATHIC ARTHROPATHY (4) Anemia Code(s): D64.9 - ANEMIA, UNSPECIFIED (5) Anxiety Code(s): F41.9 - ANXIETY DISORDER, UNSPECIFIED (6) Breast cancer Code(s): C50.919 - MALIGNANT NEOPLASM OF UNSP SITE OF UNSPECIFIED FEMALE BREAST (7) Cerebrovascular accident (CVA) Code(s): I63.9 - CEREBRAL INFARCTION, UNSPECIFIED Qualifiers: CVA mechanism: unspecified Qualified Code(s): I63.9 - Cerebral infarction, unspecified (8) Cirrhosis of liver Code(s): K74.60 - UNSPECIFIED CIRRHOSIS OF LIVER Qualifiers: Hepatic cirrhosis type: alcoholic cirrhosis Ascites presence: without ascites Qualified Code(s): K70.30 - Alcoholic cirrhosis of liver without ascites Assessment/Plan This is a 77 y/o female with multiple medical problems including CAD, Hypertension, Hyperlipidemia, DM, Anemia, GIB, Alocholic cirrhosis, CVA, Left Breast Ca who presented with sob, cough. The patient was found to have Pneumonia and Hypokalemia. On fluodrocortisone daily. Hypokalemia is resolving on KCl supplements. Fluodrocortisone is a very pitent mineralocoticoid and is a powerful Kaliuretic agent. Will need to monitor the Serum Potassium as long as she is on it, and supplement as needed. Will continue the KDure as ordered, concur with the current management and w/u. Thank you. Juany Leyva MD
--- NOTE | 2018-02-06 15:41 | PN ---
Progress Note (short form) - Note Progress Note: s: no cp, palps, dizziness, lightheadedness, sob o: Current Medications Acetaminophen (Tylenol -) 650 mg PO Q4H PRN PRN Reason: PAIN OR FEVER Last Admin: 01/28/18 08:50 Dose: 650 mg Amlodipine Besylate (Norvasc -) 5 mg PO DAILY [facility] Last Admin: 02/06/18 11:00 Dose: 5 mg Aspirin (Asa -) 81 mg PO DAILY [facility] Last Admin: 02/06/18 11:00 Dose: 81 mg Budesonide (Pulmicort 0.25 Mg Nebulizer -) 1 amp NEB RBID [facility] Last Admin: 02/06/18 07:40 Dose: 1 amp Escitalopram Oxalate (Lexapro -) 10 mg PO DAILY [facility] Last Admin: 02/06/18 11:00 Dose: 10 mg Eucalyptus/Menthol/Phenol/Sorbitol (Cepastat Lozenge -) 1 each MM Q4H PRN PRN Reason: SORE THROAT Last Admin: 01/26/18 10:18 Dose: 1 each Fludrocortisone Acetate (Florinef -) 0.1 mg PO DAILY [facility] Last Admin: 02/06/18 11:07 Dose: 0.1 mg Insulin Aspart (Novolog Vial Sliding Scale -) 1 vial SQ BIDAC [facility]; Protocol Last Admin: 02/06/18 07:36 Dose: Not Given Insulin Detemir (Levemir Vial) 20 units SQ AM [facility] Last Admin: 02/06/18 06:57 Dose: 20 units Losartan Potassium (Cozaar -) 25 mg PO DAILY [facility] Last Admin: 02/06/18 11:00 Dose: 25 mg Nadolol (Corgard -) 20 mg PO DAILY [facility] Last Admin: 02/06/18 11:00 Dose: 20 mg Pantoprazole Sodium (Protonix -) 40 mg PO DAILY [facility] Last Admin: 02/06/18 11:00 Dose: 40 mg Potassium Chloride (K-Dur -) 20 meq PO DAILY [facility] Last Admin: 02/06/18 11:00 Dose: 20 meq Rosuvastatin Calcium (Crestor -) 20 mg PO HS [facility] Last Admin: 02/05/18 21:31 Dose: 20 mg Sitagliptin Phosphate (Januvia -) 100 mg PO DAILY@0700 [facility] Last Admin: 02/06/18 06:48 Dose: 100 mg Vital Signs: Vital Signs Period Temp Pulse Resp BP Sys/Donovan Pulse Ox Last 24 Hr 97.8 F-98 F 57-61 18-20 120-135/55-65 98 Constitutional: Yes: Well Nourished, No Distress, Calm Neck: Yes: Supple, Trachea Midline Respiratory: cta bl nl eff Gastrointestinal: Yes: Normal Bowel Sounds, Soft Cardiovascular: Yes: Regular Rate and Rhythm JVD: No Heart Sounds: Yes: S1, S2 Edema: No Integumentary: Yes: no jaundice diaphoresis Neurological: Yes: Alert, Oriented EKG: sinus rhythm, TWI anterior leads CXR: mild congestion, chronic interstitial changes echo 12/2015: nl lv/rv, mod-sev tr, rvsp 37 echo 08/2017: nl lv/rv, mild mr, mod tr, mod ar mibi 02/2017: nl mpi, nl lvef CT chest 01/2018 bronchiectasis and ground glass opacification unchanged since 2017, advanced hepatocellular disease a/p: 77 yo with hx dm, htn, hld, cvas/tias, cad s/p remote pci in P.R., cirrhosis (etoh cirrhosis with varices s/p banding by dr park), breast ca 12/2014, here with shortness of breath, chest pain Dyspnea, ILD, COPD - s/p abx for pna chest pain - likely pleuritic from cough, resolved - trop negative, EKG with new TWI compared to prior however given clinical picture not concerning for ischemia Cirrhosis of liver -sec to prior etoh abuse -no signs of bleeding on asa -on nadolol, h/o varices mod-sev tr - no signs right heart failure on exam - rv normal on echo and no sig pulm htn 08/2017 Hypertension -cont nadolol, cozaar, amlodipine Chronic ischemic heart disease/cad s/p remote pci in P.R. (lad) -patent prior stent in lad and no sig residual dz on cath 10/2011 -no ischemia on recent mibi -no signs acs here -cont nadolol (on for portal htn) -cont asa, statin (previously cleared for statin by GI/liver, LFTs had been stable as outpt, remain stable here) cardiac connolly stable
--- NOTE | 2018-02-06 21:13 | PN ---
Progress Note (short form) - Note Progress Note: Patient seen and examied Feels well o: Current Medications Acetaminophen (Tylenol -) 650 mg PO Q4H PRN PRN Reason: PAIN OR FEVER Last Admin: 01/28/18 08:50 Dose: 650 mg Amlodipine Besylate (Norvasc -) 5 mg PO DAILY [facility] Last Admin: 02/06/18 11:00 Dose: 5 mg Aspirin (Asa -) 81 mg PO DAILY [facility] Last Admin: 02/06/18 11:00 Dose: 81 mg Budesonide (Pulmicort 0.25 Mg Nebulizer -) 1 amp NEB RBID [facility] Last Admin: 02/06/18 07:40 Dose: 1 amp Escitalopram Oxalate (Lexapro -) 10 mg PO DAILY [facility] Last Admin: 02/06/18 11:00 Dose: 10 mg Eucalyptus/Menthol/Phenol/Sorbitol (Cepastat Lozenge -) 1 each MM Q4H PRN PRN Reason: SORE THROAT Last Admin: 01/26/18 10:18 Dose: 1 each Fludrocortisone Acetate (Florinef -) 0.1 mg PO DAILY [facility] Last Admin: 02/06/18 11:07 Dose: 0.1 mg Insulin Aspart (Novolog Vial Sliding Scale -) 1 vial SQ BIDAC [facility]; Protocol Last Admin: 02/06/18 07:36 Dose: Not Given Insulin Detemir (Levemir Vial) 20 units SQ AM [facility] Last Admin: 02/06/18 06:57 Dose: 20 units Losartan Potassium (Cozaar -) 25 mg PO DAILY [facility] Last Admin: 02/06/18 11:00 Dose: 25 mg Nadolol (Corgard -) 20 mg PO DAILY [facility] Last Admin: 02/06/18 11:00 Dose: 20 mg Pantoprazole Sodium (Protonix -) 40 mg PO DAILY [facility] Last Admin: 02/06/18 11:00 Dose: 40 mg Potassium Chloride (K-Dur -) 20 meq PO DAILY [facility] Last Admin: 02/06/18 11:00 Dose: 20 meq Rosuvastatin Calcium (Crestor -) 20 mg PO HS [facility] Last Admin: 02/05/18 21:31 Dose: 20 mg Sitagliptin Phosphate (Januvia -) 100 mg PO DAILY@0700 [facility] Last Admin: 02/06/18 06:48 Dose: 100 mg Vital Signs: Vital Signs Period Temp Pulse Resp BP Sys/Donovan Pulse Ox Last 24 Hr 97.8 F-98 F 57-61 18-20 120-135/55-65 98 Constitutional: Yes: Well Nourished, No Distress, Calm Neck: Yes: Supple, Trachea Midline Respiratory: cta bl nl eff Gastrointestinal: Yes: Normal Bowel Sounds, Soft Cardiovascular: Yes: Regular Rate and Rhythm Heart Sounds: Yes: S1, S2 Integumentary: Yes: no jaundice diaphoresis Neurological: Yes: Alert, Oriented A/P 77 year old woman with hx of CAD, Hypertension, Hyperlipidemia, DM, Anemia, GIB , Alocholic cirrhosis, CVA, Left Breast Ca who presented with sob, cough an found to have PNA and now with hypokalemia. Thrombocytopenia ---chronic, mild--baseline 90s to 150 Most likely cirrhosis worsened due to pneumonia Stable now and at base line Unlikely HIT Reverse AG ratio--check protein studies ? liver disease Needs follow up as outpatient
[2018-02-06] MEDS: ROSUVASTATIN CA 20 MG TABLET (FP) PO SCH (21:28)
[2018-02-07] MEDS ORDERED: INSULIN (NOVOLOG) ASPART 100 UNITS/ML 10ML VIAL ONE (06:02)
[2018-02-07] MEDS ORDERED: PT OWN MED DRAWER 7, Y5N ONE (06:03)
[2018-02-07] MEDS: sitaGLIPtin PHOSPHATE 100 MG TABLET (FP) PO SCH (06:19)
[2018-02-07] MEDS: INSULIN (LEVEMIR) 100 UNITS/ML UNITS SQ SCH (06:22)
[2018-02-07] MEDS: INSULIN SLIDING SCALE (NOVOLOG) 1 VIAL SQ SCH ×2 (06:22→16:39)
[2018-02-07] MEDS ORDERED: INSULIN (LEVEMIR) 100 UNITS/ML UNITS SQ ONE (06:32)
[2018-02-07 07:18] LABS: HEMATOCRIT 40.5 % (32.4-45.2); HEMOGLOBIN 13.7 GM/dL (10.7-15.3); MCH 30.3 pg (25.7-33.7); MCHC 33.8 g/dl (32.0-36.0); MEAN CELL VOLUME 89.6 fl (80-96); MEAN PLT VOLUME 8.6 fl (7.5-11.1); PLATELET COUNT 100 K/MM3 (134-434); RBC 4.52 M/mm3 (3.60-5.2); RDW 14.6 % (11.6-15.6)
[2018-02-07] MEDS: BUDESONIDE 0.25 MG/2ML INH SUSP VIAL NEB SCH (07:30)
[2018-02-07 09:16] LABS: ALBUMIN 2.6 g/dl (3.4-5.0); ALK PHOS 111 U/L (45-117); ANION GAP 8 MMOL/L (8-16); BILIRUBIN,TOTAL 1.3 mg/dL (0.2-1); BLOOD UREA NITROGEN 6 mg/dL (7-18); CALCIUM 8.6 mg/dL (8.5-10.1); CHLORIDE 111 mmol/L (98-107); CO2 24 mmol/L (21-32); CREATININE 0.8 mg/dL (0.55-1.3); GLUCOSE,RANDOM 92 mg/dL (74-106); POTASSIUM 3.3 mmol/L (3.5-5.1); SGOT/AST 52 U/L (15-37); SGPT/ALT 30 U/L (13-61); SODIUM 142 mmol/L (136-145); TOT PROT 7.1 g/dl (6.4-8.2)
[2018-02-07] MEDS: ASPIRIN 81 MG CHEWABLE TABLETS PO SCH (09:51)
[2018-02-07] MEDS: NADOLOL 20 MG TABLET (FP) PO SCH (09:51)
[2018-02-07] MEDS: amLODIPine BESYLATE 5 MG TABLET (FP) PO SCH (09:51)
[2018-02-07] MEDS: FLUDROCORTISONE ACETATE 0.1 MG TABLET (FP) PO SCH (09:51)
[2018-02-07] MEDS: ESCITALOPRAM OXALATE 10 MG TABLET (FP) PO SCH (09:51)
[2018-02-07] MEDS: POTASSIUM CHLORIDE TABS 20 MEQ TABLET.ER (FP) PO SCH (09:51)
[2018-02-07] MEDS: PANTOPRAZOLE 40 MG TABLET (FP) PO SCH (09:51)
[2018-02-07] MEDS: LOSARTAN POTASSIUM 25 MG TABLET PO SCH (09:51)
[2018-02-07] MEDS ORDERED: POTASSIUM CHLORIDE TABS 20 MEQ TABLET.ER (FP) PO ONE (10:13)
--- NOTE | 2018-02-07 10:15 | DS ---
Physical Examination Vital Signs: Vital Signs Temperature 98.9 F 02/07/18 06:37 Pulse Rate 60 02/07/18 06:37 Respiratory Rate 20 02/07/18 06:37 Blood Pressure 126/67 02/07/18 06:37 O2 Sat by Pulse Oximetry (%) 97 02/06/18 21:00 Constitutional: Yes: Calm Neck: Yes: Trachea Midline Cardiovascular: Yes: Regular Rate and Rhythm, S1, S2 Respiratory: Yes: CTA Bilaterally Gastrointestinal: Yes: Normal Bowel Sounds, Soft Edema: No Neurological: Yes: Alert, Oriented Labs: CBC, BMP 02/07/18 06:30 02/07/18 06:30 Discharge Summary Reason For Visit: PNEUMONIA Current Active Problems Hypokalemia (Acute) Pneumonia (Acute) Type 2 diabetes mellitus with diabetic neuropathic arthropathy (Acute) Hospital Course: - Primary Care Physician PCP: Shawna Cornell - Admission Chief Complaint: Fever, SOB, CP with cough History of Present Illness: 77 y/o woman PMHx of: CAD with stent(1979, LAD), HTN, HLD, DM, Anemia, GI Bleed , Alcohol Cirrhosis, CVA, Hyponatremia, L- Breast Ca, Anxiety. Who presents to the ED with fever, chills, SOB, CP with cough x 2 days. 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 Cardiovascular: Yes: CAD (stent), HTN, Hyperlipdemia Pulmonary: Yes: Asthma Gastrointestinal: Yes: Ascites (h/o sbp intolerant to bactrim and levaquin), Esophageal Varices (h/o bleeding, banding and on nadalol), GI Bleed (variceal and duodenal ulcer), Peptic Ulcer Disease, Other (diabetic gastropareis, h/o hpylori rxed with pylera) Hepatobiliary: Yes: Cirrhosis Heme/Onc: Yes: Cancer (breast s/p lumpectomy 12/21), Thrombocytopenia (due to cirrhosis) Psych: Yes: Depression Endocrine: Yes: Diabetes Mellitus (historically poor control) - Past Surgical History Past Surgical History: Yes: Colonoscopy (multiple large polyps. poor prep in past.), Stent (cardiac), Tonsillectomy, Upper Endoscopy (h/o esoph varices. on nadalol. s/p banding. due to surveillance egd in 01/2015) hospital course: dspnea secondary to pna got 10 days of iv abx vancomycin and aztreonam hx pulmonary MAC thrombocytopenia followed by heme- can see as outpatient hypokalemia on fludocortisone, potassium supplement ordered needs to be checked as outpatient as well lactic acidosis resolved, pna improved completed abx therapy cxr shows improvement as well DM on insulin hba1c 6.5 Condition: Stable - Instructions Diet, Activity, Other Instructions: SEE DR PARRY THIS WEEK FOR BLOOD TEST FOR POTASSIUM Referrals: Kraig Parry MD [Primary Care Provider] - 1 Week Disposition: HOME - Home Medications Comprehensive Discharge Medication List: Ambulatory Orders Aspirin [ASA -] 81 mg PO DAILY 10/09/14 Albuterol Sulfate [Proventil HFA Inhaler -] 1 - 2 inh PO Q4H PRN 07/03/15 Nadolol [Corgard -] 20 mg PO DAILY tablet 09/05/17 Albuterol 0.083% Nebulizer Elizabeth [Ventolin 0.083% Nebulizer Soln -] 1 amp NEB PRN PRN 01/24/18 Amlodipine Besylate [Norvasc -] 5 mg PO DAILY 01/24/18 Escitalopram Oxalate [Lexapro -] 10 mg PO DAILY 01/24/18 Fludrocortisone Acetate [Florinef -] 0.1 mg PO DAILY 01/24/18 Fluticasone Furoate [Arnuity Ellipta] 100 mcg IH DAILY 01/24/18 Insulin Lispro [Humalog Kwikpen U-100] 100 unit SQ ASDIR 01/24/18 Losartan Potassium [Cozaar -] 25 mg PO DAILY 01/24/18 Pantoprazole Sodium [Protonix] 40 mg PO DAILY 01/24/18 Rosuvastatin [Crestor -] 20 mg PO DAILY 01/24/18 Umeclidinium [place] [Incruse Ellipta] 62.5 mcg IH DAILY 01/24/18 Sitagliptin Phosphate [Januvia -] 100 mg PO DAILY@0700 #30 ud 02/04/18 Potassium Chloride [K-Dur -] 20 meq PO DAILY #30 tablet.er 02/05/18
--- NOTE | 2018-02-07 10:23 | PN ---
Progress Note (short form) - Note Progress Note: extra potassium dose ordered called son Ji and left message on answering machine called other son as well and no answer , no answering machine to leave message Problem List - Problems (1) Hypokalemia Code(s): E87.6 - HYPOKALEMIA (2) Pneumonia Code(s): J18.9 - PNEUMONIA, UNSPECIFIED ORGANISM Qualifiers: (3) Diabetes Code(s): E11.9 - TYPE 2 DIABETES MELLITUS WITHOUT COMPLICATIONS Qualifiers: Diabetes mellitus type: type 2 (4) Depression Code(s): F32.9 - MAJOR DEPRESSIVE DISORDER, SINGLE EPISODE, UNSPECIFIED
--- NOTE | 2018-02-07 10:32 | PN ---
Progress Note (short form) - Note Progress Note: Breathing continues to improve. No CP or SOB. Cough is resolving. No fevers. Intake & Output 02/04/18 02/05/18 02/06/18 02/07/18 23:59 23:59 23:59 23:59 Intake Total 850 700 200 Balance 850 700 200 Last Vital Signs Temp Pulse Resp BP Pulse Ox 98.9 F 60 20 126/67 97 02/07/18 06:37 02/07/18 06:37 02/07/18 06:37 02/07/18 06:37 02/06/18 21:00 Active Medications Acetaminophen (Tylenol -) 650 mg PO Q4H PRN PRN Reason: PAIN OR FEVER Last Admin: 01/28/18 08:50 Dose: 650 mg Amlodipine Besylate (Norvasc -) 5 mg PO DAILY [facility] Last Admin: 02/07/18 09:51 Dose: 5 mg Aspirin (Asa -) 81 mg PO DAILY [facility] Last Admin: 02/07/18 09:51 Dose: 81 mg Budesonide (Pulmicort 0.25 Mg Nebulizer -) 1 amp NEB RBID [facility] Last Admin: 02/06/18 20:00 Dose: 1 amp Escitalopram Oxalate (Lexapro -) 10 mg PO DAILY [facility] Last Admin: 02/07/18 09:51 Dose: 10 mg Eucalyptus/Menthol/Phenol/Sorbitol (Cepastat Lozenge -) 1 each MM Q4H PRN PRN Reason: SORE THROAT Last Admin: 01/26/18 10:18 Dose: 1 each Fludrocortisone Acetate (Florinef -) 0.1 mg PO DAILY [facility] Last Admin: 02/07/18 09:51 Dose: 0.1 mg Insulin Aspart (Novolog Vial Sliding Scale -) 1 vial SQ BIDAC [facility]; Protocol Last Admin: 02/07/18 06:22 Dose: Not Given Insulin Detemir (Levemir Vial) 12 units SQ AM [facility] Losartan Potassium (Cozaar -) 25 mg PO DAILY [facility] Last Admin: 02/07/18 09:51 Dose: 25 mg Nadolol (Corgard -) 20 mg PO DAILY [facility] Last Admin: 02/07/18 09:51 Dose: 20 mg Pantoprazole Sodium (Protonix -) 40 mg PO DAILY [facility] Last Admin: 02/07/18 09:51 Dose: 40 mg Potassium Chloride (K-Dur -) 20 meq PO DAILY [facility] Last Admin: 02/07/18 09:51 Dose: 20 meq Rosuvastatin Calcium (Crestor -) 20 mg PO HS [facility] Last Admin: 02/06/18 21:28 Dose: 20 mg Sitagliptin Phosphate (Januvia -) 100 mg PO DAILY@0700 [facility] Last Admin: 02/07/18 06:19 Dose: 100 mg Gen: NAD at rest Heart: RRR Lung: Improving bibasilar rhonchi Abd: soft, nontender Ext: no edema Laboratory Results - last 24 hr 02/06/18 02/06/18 02/07/18 06:00 17:21 06:20 WBC RBC Hgb Hct MCV MCH MCHC RDW Plt Count MPV Sodium Potassium Chloride Carbon Dioxide Anion Gap BUN Creatinine Creat Clearance w eGFR POC Glucometer 134 82 Random Glucose Calcium Total Bilirubin AST ALT Alkaline Phosphatase Total Protein Albumin Vitamin B12 TSH Free T4 Cortisol AM Sample 6.5 Cortisol PM Sample Cancelled 02/07/18 02/07/18 06:30 06:30 WBC 6.0 RBC 4.52 Hgb 13.7 Hct 40.5 MCV 89.6 MCH 30.3 MCHC 33.8 RDW 14.6 Plt Count 100 L MPV 8.6 Sodium 142 Potassium 3.3 L Chloride 111 H Carbon Dioxide 24 Anion Gap 8 BUN 6 L Creatinine 0.8 Creat Clearance w eGFR > 60 POC Glucometer Random Glucose 92 Calcium 8.6 Total Bilirubin 1.3 H AST 52 H ALT 30 Alkaline Phosphatase 111 Total Protein 7.1 Albumin 2.6 L Vitamin B12 1521 H TSH 1.53 Free T4 1.27 Cortisol AM Sample Cortisol PM Sample A/P Pneumonia h/o KALIE COPD Liver Cirrhosis CAD HTN Hyperlipidemia ITP Suspected adrenal insufficiency - completed antibiotics - inhaled bronchodilators as needed - O2 to keep SpO2 >90% - will need outpt f/u of chest imaging - DVT prophylaxis - D/C planning Dr Viveros
--- NOTE | 2018-02-07 11:31 | PN ---
Progress Note (short form) - Note Progress Note: s: no cp, palps, dizziness, lightheadedness, sob o: Current Medications Acetaminophen (Tylenol -) 650 mg PO Q4H PRN PRN Reason: PAIN OR FEVER Last Admin: 01/28/18 08:50 Dose: 650 mg Amlodipine Besylate (Norvasc -) 5 mg PO DAILY [facility] Last Admin: 02/07/18 09:51 Dose: 5 mg Aspirin (Asa -) 81 mg PO DAILY [facility] Last Admin: 02/07/18 09:51 Dose: 81 mg Budesonide (Pulmicort 0.25 Mg Nebulizer -) 1 amp NEB RBID [facility] Last Admin: 02/07/18 07:30 Dose: 1 amp Escitalopram Oxalate (Lexapro -) 10 mg PO DAILY [facility] Last Admin: 02/07/18 09:51 Dose: 10 mg Eucalyptus/Menthol/Phenol/Sorbitol (Cepastat Lozenge -) 1 each MM Q4H PRN PRN Reason: SORE THROAT Last Admin: 01/26/18 10:18 Dose: 1 each Fludrocortisone Acetate (Florinef -) 0.1 mg PO DAILY [facility] Last Admin: 02/07/18 09:51 Dose: 0.1 mg Insulin Aspart (Novolog Vial Sliding Scale -) 1 vial SQ BIDAC [facility]; Protocol Last Admin: 02/07/18 06:22 Dose: Not Given Insulin Detemir (Levemir Vial) 12 units SQ AM [facility] Losartan Potassium (Cozaar -) 25 mg PO DAILY [facility] Last Admin: 02/07/18 09:51 Dose: 25 mg Nadolol (Corgard -) 20 mg PO DAILY [facility] Last Admin: 02/07/18 09:51 Dose: 20 mg Pantoprazole Sodium (Protonix -) 40 mg PO DAILY [facility] Last Admin: 02/07/18 09:51 Dose: 40 mg Potassium Chloride (K-Dur -) 20 meq PO DAILY [facility] Last Admin: 02/07/18 09:51 Dose: 20 meq Rosuvastatin Calcium (Crestor -) 20 mg PO HS [facility] Last Admin: 02/06/18 21:28 Dose: 20 mg Sitagliptin Phosphate (Januvia -) 100 mg PO DAILY@0700 [facility] Last Admin: 02/07/18 06:19 Dose: 100 mg Vital Signs: Vital Signs Period Temp Pulse Resp BP Sys/Donovan Pulse Ox Last 24 Hr 98.0 F-98.9 F 56-60 20-20 107-126/50-67 97 Constitutional: Yes: Well Nourished, No Distress, Calm Neck: Yes: Supple, Trachea Midline Respiratory: cta bl nl eff Gastrointestinal: Yes: Normal Bowel Sounds, Soft Cardiovascular: Yes: Regular Rate and Rhythm JVD: No Heart Sounds: Yes: S1, S2 Edema: No Integumentary: Yes: no jaundice diaphoresis Neurological: Yes: Alert, Oriented EKG: sinus rhythm, TWI anterior leads CXR: mild congestion, chronic interstitial changes echo 12/2015: nl lv/rv, mod-sev tr, rvsp 37 echo 08/2017: nl lv/rv, mild mr, mod tr, mod ar mibi 02/2017: nl mpi, nl lvef CT chest 01/2018 bronchiectasis and ground glass opacification unchanged since 2017, advanced hepatocellular disease a/p: 77 yo with hx dm, htn, hld, cvas/tias, cad s/p remote pci in P.R., cirrhosis (etoh cirrhosis with varices s/p banding by dr park), breast ca 12/2014, here with shortness of breath, chest pain Dyspnea, ILD, COPD - s/p abx for pna chest pain - likely pleuritic from cough, resolved - trop negative, EKG with new TWI compared to prior however given clinical picture not concerning for ischemia Cirrhosis of liver -sec to prior etoh abuse -no signs of bleeding on asa -on nadolol, h/o varices mod-sev tr - no signs right heart failure on exam - rv normal on echo and no sig pulm htn 08/2017 Hypertension -cont nadolol, cozaar, amlodipine Chronic ischemic heart disease/cad s/p remote pci in P.R. (lad) -patent prior stent in lad and no sig residual dz on cath 10/2011 -no ischemia on recent mibi -no signs acs here -cont nadolol (on for portal htn) -cont asa, statin (previously cleared for statin by GI/liver, LFTs had been stable as outpt, remain stable here) cardiac connolly stable
[2018-02-07 15:55] VITALS: BP 120/53; PULSE 56; TEMP 98.2
--- NOTE | 2018-02-07 16:16 | PN ---
Progress Note (short form) - Note Progress Note: Renal follow up for Hypokalemia Pt seen and examined at the bedside no acute complaints no sob, cp, abd pain Vital Signs Temperature 98.2 F 02/07/18 13:25 Pulse Rate 56 L 02/07/18 13:25 Respiratory Rate 20 02/07/18 13:25 Blood Pressure 120/53 L 02/07/18 13:25 O2 Sat by Pulse Oximetry (%) 97 02/07/18 09:00 Intake & Output 02/04/18 02/05/18 02/06/18 02/07/18 23:59 23:59 23:59 23:59 Intake Total 850 700 200 200 Balance 850 700 200 200 NAD awake and alert RRR, No M/R CTA, no rales or wheeze soft NT/ND No Le edema, clubbing or cyanosis CBC, BMP 02/07/18 06:30 02/07/18 06:30 Current Medications Acetaminophen (Tylenol -) 650 mg PO Q4H PRN PRN Reason: PAIN OR FEVER Last Admin: 01/28/18 08:50 Dose: 650 mg Amlodipine Besylate (Norvasc -) 5 mg PO DAILY [facility] Last Admin: 02/07/18 09:51 Dose: 5 mg Aspirin (Asa -) 81 mg PO DAILY [facility] Last Admin: 02/07/18 09:51 Dose: 81 mg Budesonide (Pulmicort 0.25 Mg Nebulizer -) 1 amp NEB RBID [facility] Last Admin: 02/07/18 07:30 Dose: 1 amp Escitalopram Oxalate (Lexapro -) 10 mg PO DAILY [facility] Last Admin: 02/07/18 09:51 Dose: 10 mg Eucalyptus/Menthol/Phenol/Sorbitol (Cepastat Lozenge -) 1 each MM Q4H PRN PRN Reason: SORE THROAT Last Admin: 01/26/18 10:18 Dose: 1 each Fludrocortisone Acetate (Florinef -) 0.1 mg PO DAILY [facility] Last Admin: 02/07/18 09:51 Dose: 0.1 mg Insulin Aspart (Novolog Vial Sliding Scale -) 1 vial SQ BIDAC [facility]; Protocol Last Admin: 02/07/18 06:22 Dose: Not Given Insulin Detemir (Levemir Vial) 12 units SQ AM [facility] Losartan Potassium (Cozaar -) 25 mg PO DAILY [facility] Last Admin: 02/07/18 09:51 Dose: 25 mg Nadolol (Corgard -) 20 mg PO DAILY [facility] Last Admin: 02/07/18 09:51 Dose: 20 mg Pantoprazole Sodium (Protonix -) 40 mg PO DAILY [facility] Last Admin: 02/07/18 09:51 Dose: 40 mg Potassium Chloride (K-Dur -) 20 meq PO DAILY [facility] Last Admin: 02/07/18 09:51 Dose: 20 meq Rosuvastatin Calcium (Crestor -) 20 mg PO HS [facility] Last Admin: 02/06/18 21:28 Dose: 20 mg Sitagliptin Phosphate (Januvia -) 100 mg PO DAILY@0700 [facility] Last Admin: 02/07/18 06:19 Dose: 100 mg 77 year old woman with hx of CAD, Hypertension, Hyperlipidemia, DM, Anemia, GIB , Alocholic cirrhosis, CVA, Left Breast Ca who presented with sob, cough an found to have PNA and now with hypokalemia. #Hypokalmeia w/o diuretics/GI losses Continue KCL daily as outpatient repeat labs in 1 week with PMD if K remains low can follow up in our office for management Thank you Aman Whitehead DO
[2018-02-08] MEDS ORDERED: INSULIN (LEVEMIR) 100 UNITS/ML UNITS SQ SCH (07:00)
== END 2018-02-07 16:46 | disposition home or self-care (01) | DRG 178 ==
LOC: JER 15:47 → JERBED 18:23 → J8W 22:43
PROVIDERS: ADMIT Family Medicine; ATTEND Family Medicine
DX: J15.1 Pneumonia due to Pseudomonas (principal); J84.9 Interstitial pulmonary disease, unspecified; E87.2 Acidosis; J45.909 Unspecified asthma, uncomplicated; I25.10 Atherosclerotic heart disease of native coronary artery without angina pectoris; I10 Essential (primary) hypertension; E78.5 Hyperlipidemia, unspecified; D64.9 Anemia, unspecified; F41.8 Other specified anxiety disorders; Z98.61 Coronary angioplasty status; E87.6 Hypokalemia; J44.9 Chronic obstructive pulmonary disease, unspecified; R07.9 Chest pain, unspecified; K70.30 Alcoholic cirrhosis of liver without ascites; E11.610 Type 2 diabetes mellitus with diabetic neuropathic arthropathy; D69.6 Thrombocytopenia, unspecified; I36.1 Nonrheumatic tricuspid (valve) insufficiency
CPT/HCPCS: 36415; 71045-TC-FY; 71046-TC-FY; 71250-TC; 76700-TC; 80048; 80053; 80061; 81003; 82533; 82607; 82747; 82784; 82803; 82962; 83036; 83605; 83721; 83735; 83880; 84155; 84165; 84439; 84443; 84484; 85014; 85025; 85027; 85610; 85730; 86022; 86334; 87040; 87070; 87086; 87116; 87186; 87205; 87206; 87804; 87899; 93005; 93010; 94010; 94640; 97116-GP; 99285-25; G0480; J0131; J1644; J7030; J7620

== ENCOUNTER 2018-05-06 16:27 | Inpatient (IN) | payer OTHER ==
--- NOTE | 2018-05-06 17:08 | PDOC ---
History of Present Illness - General Chief Complaint: Back Pain Stated Complaint: BACK AND LEG PAIN Time Seen by Provider: 05/06/18 17:07 History Source: Patient, Family (Son) Exam Limitations: No Limitations - History of Present Illness Initial Comments: Pt is a 77 yo F, with PMH of CAD (with stents), DM, HTN, anemia, hypoNa, CVA (L- sided residual deficits/tremor), and breast CA, who is presenting with complaints of fatigue, decreased PO food and fluid intake, and sacral ulcers x1 month. Pt is accompanied by her son, who states the pt flew in from [place] today, and she was there for a month after her . Her son states that the pt was staying with her daughter in [place], but the family noticed the pt not ambulating and eating as often, and the family members could not help the pt with her activities of daily living. The ulcers in her sacral region started a few weeks ago since the pt has been lying in bed. The [place] the [place] today, and the son brought her immediately to the ER due to complaints of pain in sacral region and that pt appeared more weak than usual. The pt has no family members available here who will be able to help her with her daily activities. Pt denies any fevers/chills, headache, vision changes, chest pain, palpitations, SOB, nausea/vomiting, abdominal pain, urinary symptoms, diarrhea/ constipation, or leg swelling more than usual. Social: Pt denies any cigarette, alcohol, or drug use. Pt just traveled from [place], no sick contacts known. Surgical: no relevant history Family: no relevant history 05/07/18 00:13 Past History - Travel Traveled outside of the country in the last 30 days: Yes If so, where?: [place] Close contact w/someone who was outside of country & ill: No - Past Medical History Allergies/Adverse Reactions: Allergies Allergy/AdvReac Type Severity Reaction Status Date / Time levofloxacin [From Levaquin] Allergy Intermediate Rash Verified 05/06/18 16:50 Penicillins Allergy Rash Verified 05/06/18 16:50 sulfamethoxazole AdvReac Intermediate Verified 05/06/18 16:50 [From Bactrim] trimethoprim [From Bactrim] AdvReac Intermediate Verified 05/06/18 16:50 Home Medications: Ambulatory Orders Aspirin [ASA -] 81 mg PO DAILY 10/09/14 Albuterol Sulfate [Proventil HFA Inhaler -] 1 - 2 inh PO Q4H PRN 07/03/15 Nadolol [Corgard -] 20 mg PO DAILY tablet 09/05/17 Amlodipine Besylate [Norvasc -] 5 mg PO DAILY 01/24/18 Escitalopram Oxalate [Lexapro -] 10 mg PO DAILY 01/24/18 Fludrocortisone Acetate [Florinef -] 0.1 mg PO DAILY 01/24/18 Fluticasone Furoate [Arnuity Ellipta] 100 mcg IH DAILY 01/24/18 Pantoprazole Sodium [Protonix] 40 mg PO DAILY 01/24/18 Umeclidinium Huntley [Incruse Ellipta] 62.5 mcg IH DAILY 01/24/18 Atorvastatin Calcium [Lipitor] 10 mg PO DAILY 05/07/18 Humalog Kwikpen U-100 2 - 12 units SQ ASDIR PRN 05/07/18 Insulin (Levemir) [Levemir Vial] 50 units SQ ACDIN 05/07/18 Nortriptyline HCl [Pamelor -] 25 mg PO DAILY 05/07/18 Valsartan/Hydrochlorothiazide [Diovan Hct 320-12.5 mg Tab] 1 each PO 05/07/18 Anemia: Yes Asthma: Yes Cancer: Yes (breast cancer) Cardiac Disorders: Yes (cad with stents) CVA: Yes COPD: No Diabetes: Yes GI Disorders: Yes (HX. ULCERS,ESOPHAGEAL VARICES) HTN: Yes Hypercholesterolemia: Yes Liver Disease: Yes (ALCOHOL CIRRHOSIS??-ASCITES) Psychiatric Problems: Yes (ANXIETY.) - Surgical History Cardiac Surgery: Yes (STENT X 1 in LAD 1978) - Immunization History Immunization Up to Date: Yes - Suicide/Smoking/Psychosocial Hx Smoking Status: Yes Smoking History: Never smoked Years of Tobacco Use: 5 Have you smoked in the past 12 months: No Number of Cigarettes Smoked Daily: 0 If you are a former smoker, when did you quit?: over 30 years ago Information on smoking cessation initiated: No Hx Alcohol Use: No Drug/Substance Use Hx: No Substance Use Type: None Hx Substance Use Treatment: Yes (ALCOHOL) Review of Systems - Review of Systems Able to Perform ROS?: Yes Is the patient limited Palestinian proficient: Yes Constitutional: Yes: Loss of Appetite, Malaise, Weakness, Weight Stable. No: Chills, Fever HEENTM: No: Recent change in vision, Nose Congestion, Hearing Loss, Throat Swelling, Difficulty Swallowing Respiratory: No: Cough, Orthopnea, Shortness of Breath Cardiac (ROS): No: Chest Pain, Edema, Irregular Heart Rate, Lightheadedness, Palpitations, Syncope, Chest Tightness ABD/GI: Yes: Poor Appetite, Poor Fluid Intake. No: Constipated, Diarrhea, Nausea, Vomiting, Abdominal cramping : No: Burning, Dysuria, Frequency, Hematuria, Urgency Musculoskeletal: Yes: See HPI, Back Pain (lower back pain/sacral area 2/2 to new ulcers and lying in bed), Muscle Weakness. No: Muscle Pain Integumentary: Yes: See HPI, Lesions (new ulcers on sacral region). No: Rash Neurological: Yes: Pre-Existing Deficit (CVA in the past -- tremor in L arm and L leg), Tremors, Weakness, Unsteady Gait (chronic issues with ambulation; past history of CVA). No: Headache, Numbness, Ataxia, Dizziness Psychiatric: Yes: Depression, Stressors, Emotional Problems, Change in Appetite. No: Sleep Pattern Change Endocrine: No: Increased Urine, Change in Weight Hematologic/Lymphatic: No: Anemia, Blood Clots, Easy Bleeding All Other Systems: Reviewed and Negative *Physical Exam - Vital Signs Last Vital Signs Temp Pulse Resp BP Pulse Ox 96.5 F L 56 L 16 130/55 L 98 05/06/18 16:40 05/06/18 16:40 05/06/18 16:40 05/06/18 16:40 05/06/18 16:40 - Physical Exam General Appearance: Yes: Nourished, Appropriately Dressed, Obese. No: Apparent Distress (pt mildly uncomfortable due to ulcers, but can lie comfortably, vitals stable, NAD) HEENT: positive: EOMI, QUYEN, Normal ENT Inspection, Normal Voice, Pharynx Normal , Hearing Grossly Normal. negative: Scleral Icterus (R), Scleral Icterus (L), Pharyngeal Erythema, Tonsillar Exudate, Tonsillar Erythema, Hearing Decreased Neck: positive: Trachea midline, Normal Thyroid, Supple. negative: Tender, Rigid, Lymphadenopathy (R), Lymphadenopathy (L), Rigidity Respiratory/Chest: positive: Decreased Breath Sounds, Rhonchi (coarse lung sounds b/l anterior and posterior). negative: Chest Tender, Lungs Clear, Normal Breath Sounds, Respiratory Distress, Accessory Muscle Use, Wheezing, Dullness Cardiovascular: positive: Regular Rhythm, S1, S2, Edema (mild b/l pedal edema), Bradycardia (HR in 50s-60s, pt has had similar rate in the past). negative: Regular Rate, JVD, Murmur Vascular Pulses: Carotid (R): 4+, Carotid (L): 4+ Gastrointestinal/Abdominal: positive: Normal Bowel Sounds, Flat, Soft. negative : Tender, Organomegaly, Pulsatile Mass, Guarding, Rebound, Tenderness Rectal Exam: positive: deferred Lymphatic: negative: Adenopathy, Tenderness Musculoskeletal: positive: Normal Inspection. negative: CVA Tenderness, Decreased Range of Motion Extremity: positive: Normal Capillary Refill, Normal Inspection, Normal Range of Motion, Pelvis Stable, Pedal Edema. negative: Tender Integumentary: positive: Normal Color, Dry, Warm, Other (Stage 2 sacral ulcers, no active drainage, no foul smell). negative: Rash Neurologic: positive: astronomy department chair II-XII NML intact, Fully Oriented, Alert, Normal Mood/ Affect, Normal Response, Motor Strength 5/5, Depressed Affect. negative: EOM Palsy, Facial Droop, Sensory Deficit, Finger to Nose Moderate Sedation - Procedure Monitoring Vital Signs: Procedure Monitoring Vital Signs Temperature 96.5 F L 05/06/18 16:40 Pulse Rate 56 L 05/06/18 16:40 Respiratory Rate 16 05/06/18 16:40 Blood Pressure 130/55 L 05/06/18 16:40 O2 Sat by Pulse Oximetry (%) 98 05/06/18 16:40 ED Treatment Course - LABORATORY CBC & Chemistry Diagram: 05/07/18 15:50 05/07/18 15:50 Medical Decision Making - Medical Decision Making Pt was seen at bedside, also will be seen by attending Dr. Rajput. Pt presenting with complaints of fatigue, decreased PO food and fluid intake, and sacral ulcers x1 month. Pt is accompanied by her son, who states the pt flew in from [place] today, and she was there for a month after her . Her son states that the pt was staying with her daughter in [place], but the family noticed the pt not ambulating and eating as often, and the family members could not help the pt with her activities of daily living. The ulcers in her sacral region started a few weeks ago since the pt has been lying in bed. [place], and the son brought her immediately to the ER due to complaints of pain in sacral region and that pt appeared more weak than usual. The pt has no family members available here who will be able to help her with her daily activities. Pt denies any fevers/chills, headache, vision changes , chest pain, palpitations, SOB, nausea/vomiting, abdominal pain, urinary symptoms, diarrhea/constipation, or leg swelling more than usual. Vitals stable, temp 96.5, initiated active re-warming with warm blankets. PE showed [] Considering sepsis 2/2 sacral ulcers, UTI, flu. Ordered work-up including septic work-up/blood cultures, ECG, chest x-ray. Provided 1 L IV NS, 1 g IV tylenol for improvement of pain and fever control. Will continue to reassess pt and monitor for symptomatic improvement. 05/06/18 19:04 First labs sent were QNS -- re-sent CBC and coags to lab. Will send urine sample, will likely need to straight cath, once we can get pt into a private room. 05/06/18 19:09 Lab stated CMP was QNS for cardiac profile. Re-sent blood for cardiac profile and lactic acid. 05/06/18 21:40 CMP: K 3.1 -- will replete with 40 PO K. ECG: NSR, HR 69, Qtc 531. TWIs increased in V2-V3 compared to prior ECG, no reciprocal changes. 05/06/18 21:48 Troponin negative. Influenza test negative. Repeat lactic 2.6 (improving). Pt has b/l pitting pedal edema, chest x-ray looked hazy b/l. Will hold off on additional fluid resuscitation for now. Providing 1 g Vanc to cover for potential infection from sacral ulcers. 05/06/18 22:42 Hospitalist team at bedside to see pt. 05/07/18 00:04 Pt lying comfortably and has been able to eat in department. Awaiting bed upstairs. 05/07/18 00:16 *DC/Admit/Observation/Transfer Diagnosis at time of Disposition: Lactic acidosis Sacral decubitus ulcer Qualifiers: Pressure injury stage: stage 2 Qualified Code(s): L89.152 - Pressure ulcer of sacral region, stage 2 Failure to thrive Qualifiers: Failure to thrive age range: in adult Qualified Code(s): R62.7 - Adult failure to thrive - Discharge Dispostion Condition at time of disposition: Stable Decision to Admit order: Yes - Referrals - Patient Instructions - Post Discharge Activity
[2018-05-06] MEDS ORDERED: ACETAMINOPHEN 1000 MG/100 ML VIAL (NON FORMULARY) IVPB ONE (17:20)
[2018-05-06] MEDS ORDERED: ACETAMINOPHEN INJECTION 100 ML IVPB ONE (17:26)
[2018-05-06] MEDS ORDERED: SODIUM CHLORIDE 1,000 ML IV STA (17:34)
[2018-05-06 19:09] LABS: ALBUMIN 2.4 g/dl (3.4-5.0); ALK PHOS 248 U/L (45-117); ANION GAP 9 MMOL/L (8-16); BILIRUBIN,TOTAL 3.4 mg/dL (0.2-1); BLOOD UREA NITROGEN 9 mg/dL (7-18); CALCIUM 8.6 mg/dL (8.5-10.1); CHLORIDE 106 mmol/L (98-107); CO2 25 mmol/L (21-32); CREATININE 1.1 mg/dL (0.55-1.3); GLUCOSE,RANDOM 212 mg/dL (74-106); POTASSIUM 3.1 mmol/L (3.5-5.1); SGOT/AST 70 U/L (15-37); SGPT/ALT 39 U/L (13-61); SODIUM 140 mmol/L (136-145); TOT PROT 6.9 g/dl (6.4-8.2)
[2018-05-06] MEDS ORDERED: POTASSIUM CHLORIDE TABS 20 MEQ TABLET.ER (FP) PO ONE ×2 (19:16→21:13)
--- NOTE | 2018-05-06 19:31 | PDOC ---
Attending Attestation - Resident Resident Name: Alexandra Gayle - ED Attending Attestation I have performed the following: I have examined & evaluated the patient, The case was reviewed & discussed with the resident, I agree w/resident's findings & plan - HPI HPI: 05/06/18 21:46 [id number], with a significant past medical history of CAD (s/p stenting), DM, HTN, anemia, GI bleed, CVA (2014 with residual right sided deficits), hyponatremia, HLD, breast Ca, who presents to the emergency department with, back pain along a sacral decubitus ulcer. +Generalized weakness, poor PO intake and family unable to care for her. Primary Care Physician: Dr. Matos - Physicial Exam PE: 05/06/18 21:47 NAD, well appearing, MMM, nl conjunctiva, anicteric; neck supple. lungs clear, + soft holosystolic murmur, abdomen soft nontender. RUIZ x4, no focal neuro deficits.+ Sacral decubitus ulcer. No peripheral edema. normal color for ethnicity, WWP. - Medical Decision Making 05/06/18 21:47 See HPI for details Vital signs reviewed, wnl. no fever rectally, 97.5. Prior notes reviewed, including admissions, discharges and consultations. laboratory results and imaging reviewed, basic labs and lytes wnl, notable for lactic acidosis (no fever to suggest sepsis/infection), possible dehydration. lactic acid downtrending with hydration UA_neg prelim for infection Cardiac panel_neg trop. EKG normal sinus rhythm, no interval abnormalities, narrow QRS, ST and T wave segments and morphology normal. TWI in precordial and inferior leads, changed from prior. ED course: sacral ulcer, possible source of infection, though no fevers, + lactic. so IV vancomycin for possible sacral ulcer/infection. Dispo: Admit for lactic acidosis/sacral decub ulcer, FTT, poor mobility and inability for family to care for her. Discussed results and management plan with pt and family member at bedside, agree with impression and plan 05/07/18 00:52 05/07/18 01:26 05/07/18 16:35
[2018-05-06 19:35] LABS: INR 1.25 (0.83-1.09); PROTHROMBIN TIME (PATIENT) 14.8 SEC (9.7-13.0)
[2018-05-06 19:37] LABS: BASO % 0.1 % (0-2.0); EOS % 0.3 % (0-4.5); HEMOGLOBIN 15.3 GM/dL (10.7-15.3); LYMPH % 13.1 % (8-40); MCH 29.4 pg (25.7-33.7); MCHC 34.1 g/dl (32.0-36.0); MEAN CELL VOLUME 86.3 fl (80-96); MEAN PLT VOLUME 8.4 fl (7.5-11.1); MONO % 5.3 % (3.8-10.2); NEUT % 81.2 % (42.8-82.8); PLATELET COUNT 155 K/MM3 (134-434); RBC 5.21 M/mm3 (3.60-5.2); WHITE BLOOD COUNT 10.2 K/mm3 (4.0-10.0)
[2018-05-06 19:38] LABS: ACTIVATED PTT 31.9 SECONDS (25.2-36.5)
[2018-05-06] MEDS ORDERED: POTASSIUM CHLORIDE ORAL LIQUID 20 MEQ/15 ML PO ONE (21:33)
[2018-05-06] MEDS ORDERED: VANCOMYCIN 1,000 MG in DEXTROSE 5%-WATER - 250 ML IVPB ONE (22:43)
--- NOTE | 2018-05-06 23:57 | PN ---
Teaching Attending Note Name of Resident: Bhakti Connor ATTENDING PHYSICIAN STATEMENT I saw and evaluated the patient. I reviewed the resident's note and discussed the case with the resident. I agree with the resident's findings and plan as documented. PCP: Dr. Matos SUBJECTIVE: Seen and examined with resident; please refer to their note for further historical details. Briefly, this is a 77 y/o HF who is Serbian-speaking only who presents to the hospital with a CC of back pain around a stage II sacral ulcer. She has a history of multiple admits here and has a history of HTN, CAD , DM, Anemia, GIB, Alcoholic cirrhosis, L-breast cancer (unsure of complete history but the son tells us that, MAC pneumonia, pseudomonas colonization, chronic thrombocytopenia, moderate to severe TR. She is a poor historian and doesn't know the medications she is taking. She has a decubitus that has been hurting her for the past 5-6 days with pain radiating throughout the site. She recently traveled back from [place] where she was staying with family after the of her ; [place] and per the ER there were issues taking care of her at home and there was concern so she was brought to the hospital. Poor PO intake. No anil source of infection identifed. Medication list is unknown; spoke to son Ji who said that he would bring the list to the hospital in the AM. 10 sys ROS done and negative aside from HPI PMH and PSH reviewed FH asked and noncontributory Socially she just got back from [place] and recently ; has h/o EtOH cirrhosis but denies current EtOH abuse Medication list pending; old med list from prior admissions reviewed OBJECTIVE: VS, labs, imaging reviewed NAD, AAO, resting comfortably in bed Stage II sacral decub with minimal surrounding erythema and no anil drainage or foul odor RRR s1/2 no mgr Lungs CTAB w/ sym exp Mild tenderness to palpation without any localizing sx; ND, +BS. Body habitus limits assessment of hsm. Dependent edema noted, moves all 4 extremities, normal muscle tone CN2-12 wnl, no fnd Normal mood, appropriate affect Labs show leukocytosis to 10 with a lactate of 3.5 that trended down to 2.5; negative UA; negative CE's, Kypokalemia to 3.1, glu 212. Bili elevated to 3.4, AST/ALT 70/39, 248 Alk Phos, negative flu, negative prior HIV. Prior hepatitis panel reviewed Imaging pending; CT abdomen/pelvis EKG reviewed ASSESSMENT AND PLAN: Mrs. Ribera is a 77 y/o female presenting to the ER with back pain found to have a positive LA with no fever or identifying source of infection. 1) Elevated Lactate -She had a lactate that came down with hydration. No fever, WBC is only 10. No source of infection identified so far but she does have some abdominal pain to examination so will check a CT. Negative UA, CXR, no cough or SOB, decub present but not infected-appearing. Check ESR/CRP, panculture. Consult ID if further concern persists for occult infection. No fevers. 2) Stage II Decub -Present on admission; doesn't appear infected. Cultured for completeness and consulting wound care for further recs. 3) History of Breast Cancer -Per the son she had a lump removed and she never had any chemo or radiation; reviewing old records. Needs to be followed up 4) Hx CAD -S/p remote PCI to LAD in [place] -Continue home meds; monitor. HR in mid to high 50s so watch with BB. 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 Needs OP followup with GI, scope, etc. Not currently drinking per the pt. 7) H/o ILD -Has seen pulm in past, respiratory status stable 8) HTN -Continue home meds, monitor 9) History of MAC/Pseud -Consider if she is infected said organisms 10) Moderate to severe TR -Reviewed old echo; monitor. Avoid fluctuations in BP 11) Adrenal Insufficiency -Continue home steroids, consider AM cortisol 12) Thrombocytopenia -Trend CBC; trending at baseline. Likely due to cirrhosis 13) Abdominal Discomfort with elevated bilirubin -CT abdomen pending; consider additional studies based on what is seen. Fractionate bili and trend CMP. H/o cirrhosis considered but want to r/o any other occult pathology FENA -LR@60 -PRN replete; replete K. Consider atypical causes of hypokalemia as this is persistent -Cardiac diet -As tolerated; consult PT She will need her home meds entered and reconciled; being brought in by son * Full Code
[2018-05-07] MEDS ORDERED: POTASSIUM CHLORIDE ORAL LIQUID 20 MEQ/15 ML ONE (00:43)
[2018-05-07] MEDS ORDERED: VANCOMYCIN 1 GRAM (PRE-DOCKED) 1,000 MG/250 ML BAG IVPB ONE (00:44)
[2018-05-07 01:24] LABS: URINE APPEARANCE CLEAR; URINE BILIRUBIN NEGATIVE (<2.0 mg/dL); URINE COLOR YELLOW; URINE GLUCOSE (UA) NEGATIVE (NEGATIVE); URINE KETONE NEGATIVE (NEGATIVE); URINE LEUK ESTERASE TRACE (NEGATIVE); URINE NITRITE NEGATIVE (NEGATIVE); URINE PROTEIN 2+ (NEGATIVE); URINE UROBILINOGEN 4.0 E.U/dl mg/dL (0.2-1.0)
[2018-05-07] MEDS ORDERED: ACETAMINOPHEN 325 MG TABLET (FP) PO ONE (01:37)
--- NOTE | 2018-05-07 01:48 | HP ---
<Bhakti Connor - Last Filed: 05/07/18 22:22> CHIEF COMPLAINT: back pain, dropped off by family PCP: Dr. Matos HISTORY OF PRESENT ILLNESS: History given by ED resident. 77F w/ pmhx of CAD, DM, HTN, CVA (2013 w/ R residual deficits), anemia, breast cx 12/21 who was brought to the hospital by family with complaints of back pain. Per son, pt arrived from [place] today. Recently, her 1 month ago after which she traveled to [place] to be with her siblings. It was noted that pt was found to have decreased motivation and ability to perform IADLs so pt was sent back [place] Pt's son received her and consequently found the pt not able to function independently. Pt now currently complaining of lower back pain that has been limiting her ability to ambulate. She admits to taking medications but does not know the name of her medication list. Of note, per son, pt was diagnosed with breast cancer, after which she had a lumpectomy. Denies undergoing radiation or chemotherapy for further treatment. ER course was notable for: (1) Lac 3.5 > 2.6, T Bili 2.4, AST/ALT 54/33, Alk P 218, CRP 4m K 3.1 (2) NS 1L, IV Tylenol; K repleted (3) Recent Travel: Arrived from [place] today PAST MEDICAL HISTORY: CAD DM HTN CVA (2013) anemia breast cancer (diagnosed 12/21) PAST SURGICAL HISTORY: lumpectomy Social History: Smoking: Denies Alcohol: Former drinker Drugs: Denies Family History: Denies Allergies levofloxacin [From Levaquin] Allergy (Intermediate, Verified 05/06/18 16:50) Rash Penicillins Allergy (Verified 05/06/18 16:50) Rash sulfamethoxazole [From Bactrim] Adverse Reaction (Intermediate, Verified 16:50) dizziness, dyspepsia and nausea trimethoprim [From Bactrim] Adverse Reaction (Intermediate, Verified 05/06/18 16 :50) dizziness, dyspepsia and nausea HOME MEDICATIONS: Home Medications Medication Instructions Recorded Aspirin [ASA -] 81 mg PO DAILY 10/09/14 Albuterol Sulfate [Proventil HFA 1 - 2 inh PO Q4H PRN 07/03/15 Inhaler -] Nadolol [Corgard -] 20 mg PO DAILY tablet 09/05/17 Albuterol 0.083% Nebulizer Elizabeth 1 amp NEB PRN PRN 01/24/18 [Ventolin 0.083% Nebulizer Soln -] Amlodipine Besylate [Norvasc -] 5 mg PO DAILY 01/24/18 Escitalopram Oxalate [Lexapro -] 10 mg PO DAILY 01/24/18 Fludrocortisone Acetate [Florinef 0.1 mg PO DAILY 01/24/18 -] Fluticasone Furoate [Arnuity 100 mcg IH DAILY 01/24/18 Ellipta] Insulin Lispro [Humalog Kwikpen 100 unit SQ ASDIR 01/24/18 U-100] Losartan Potassium [Cozaar -] 25 mg PO DAILY 01/24/18 Pantoprazole Sodium [Protonix] 40 mg PO DAILY 01/24/18 Rosuvastatin [Crestor -] 20 mg PO DAILY 01/24/18 Umeclidinium [place] [Incruse 62.5 mcg IH DAILY 01/24/18 Ellipta] Sitagliptin Phosphate [Januvia -] 100 mg PO DAILY@0700 #30 ud 02/04/18 Potassium Chloride [K-Dur -] 20 meq PO DAILY #30 tablet.er 02/05/18 Insulin (Levemir) [Levemir Vial] 12 units SQ AM #100 units 02/07/18 REVIEW OF SYSTEMS CONSTITUTIONAL: +poor appetite; -f/c, weight loss HEENT: -throat pain, rhinorrhea, ear pain, eye pain CARDIOVASCULAR: -cp, lightheadedness, peripheral edema RESPIRATORY: -cough, sob, blake, orthopnea, wheezing GASTROINTESTINAL: +abdominal pain; -distension, n/v, c/d, melena, hematochezia GENITOURINARY: -dysuria, frequency, hesitancy, hematuria, flank pain MUSCULOSKELETAL: -myalgia, neck pain ENDOCRINE: -hot flashes, -unintentional weight changes NEUROLOGIC: -milner, dizziness, seizure, mental status changes PHYSICAL EXAMINATION Vital Signs - 24 hr 05/06/18 16:40 Temperature 96.5 F L Pulse Rate 56 L Respiratory 16 Rate Blood Pressure 130/55 L O2 Sat by Pulse 98 Oximetry (%) GENERAL: AAOx3. NAD. HEENT: AT/NC. EOMI. Dry membranes. NECK: Normal range of motion, supple without lymphadenopathy, JVD, or masses. LUNGS: CTA B/L. No wheezes, rhonchi, crackles noted. HEART: RRR. Normal S1, S2. No murmurs noted. ABDOMEN: Soft, NT/ND. No masses/bruit noted. +BS in all 4Q's. MUSCULOSKELETAL: No CVA tenderness. EXTREMITIES: No peripheral edema noted. 5/5 muscle strength in u/l b/l LE. NEUROLOGICAL: Normal speech. CN II-XII intact. PSYCHIATRIC: Cooperative. Good eye contact. Appropriate mood and affect. SKIN: 0.5x1cm Stage II sacral decubitus ulcer, non-draining, dry, erythematous CBCD WBC 10.2 K/mm3 (4.0-10.0) H 05/06/18 18:54 RBC 5.21 M/mm3 (3.60-5.2) H 05/06/18 18:54 Hgb 15.3 GM/dL (10.7-15.3) 05/06/18 18:54 Hct 45.0 % (32.4-45.2) 05/06/18 18:54 MCV 86.3 fl (80-96) 05/06/18 18:54 MCHC 34.1 g/dl (32.0-36.0) 05/06/18 18:54 RDW 18.0 % (11.6-15.6) H 05/06/18 18:54 Plt Count 155 K/MM3 (134-434) D 05/06/18 18:54 MPV 8.4 fl (7.5-11.1) 05/06/18 18:54 CMP Sodium 140 mmol/L (136-145) 05/06/18 18:15 Potassium 3.1 mmol/L (3.5-5.1) L 05/06/18 18:15 Chloride 106 mmol/L (98-107) 05/06/18 18:15 Carbon Dioxide 25 mmol/L (21-32) 05/06/18 18:15 Anion Gap 9 MMOL/L (8-16) 05/06/18 18:15 BUN 9 mg/dL (7-18) 05/06/18 18:15 Creatinine 1.1 mg/dL (0.55-1.3) 05/06/18 18:15 Creat Clearance w eGFR 48.42 (>60) 05/06/18 18:15 Calcium 8.6 mg/dL (8.5-10.1) 05/06/18 18:15 Total Bilirubin 3.4 mg/dL (0.2-1) H 05/06/18 18:15 AST 70 U/L (15-37) H 05/06/18 18:15 ALT 39 U/L (13-61) 05/06/18 18:15 Alkaline Phosphatase 248 U/L (45-117) H 05/06/18 18:15 Total Protein 6.9 g/dl (6.4-8.2) 05/06/18 18:15 Albumin 2.4 g/dl (3.4-5.0) L 05/06/18 18:15 ASSESSMENT/PLAN: 77F w/ pmhx of CAD s/p stent placement, DM, HTN, anemia, CVA (2013, residual R sided deficits), HLD, Breast cx (diagnosed 12/21) brought by the family with complaints of back pain. #Elevated Lactate -Lac 3.5 > 2.6; improved after NS given. -cont to trend lactate, cont giving IVf -Source of infection unclear, but pt complaining of abd pain; CTAP ordered -U/A neg, CXR neg, denie cough symptoms. Upon physical exam, sacral decubitus does not appear to look toxic or infected. -ESR/CRP, BCx, UCx, ordered -Will consider giving IV abx if potential source found on imaging #Stage II Sacral decubitus ulcer -does not appear to look infected -frequent turns daily -daily cleaning/wound dressing changes -wound cx ordered #Hx of Breast cx (diagnosed 12/2014) -Obtain records -According to son, pt underwent lumpectomy, but pt did not have radiation or chemotherapy -further follow up warranted #Hypokalemia; K 3.1 -KCl 10 mEq x 10 bags -replete PRN #CAD -home meds per primary team #DM -hold home DM meds -BGMs ACHS -ISS ACHS #HTN -home meds per primary team #Anemia; Hgb currently stable at 15. 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 Will likely need GI follow up outpatient #Adrenal Insufficiency -meds per primary team #Prophylaxis -SQH #FEN -NS @ 77 -recheck lytes in AM (K) -diabetic/sodium-controlled diet dispo -admit to tele inpt -full code -needs meds reconciled Visit type - Emergency Visit Emergency Visit: Yes ED Registration Date: 05/06/18 Care time: The patient presented to the Emergency Department on the above date and was hospitalized for further evaluation of their emergent condition. - New Patient This patient is new to me today: Yes Date on this admission: 05/07/18 - Critical Care Critical Care patient: No <JustinajayLes goodwin - Last Filed: 05/29/18 19:33> Seen and examined;agree with all the above aside form as edited by me in my own note. Thank you. Was present for all vital parts of encounter; plan discussed with me. Agree with above as documented by the resident.
[2018-05-07 02:07] LABS: EPI CELLS MODERATE /HPF (FEW); URINE HYALINE CAST 4 /lpf; URINE MUCUS RARE
[2018-05-07] MEDS ORDERED: ACETAMINOPHEN 325 MG TABLET (FP) ONE (02:47)
[2018-05-07] MEDS ORDERED: KCL 10 MEQ IVPB 10 MEQ/100 ML INFUS.BAG IVPB ONE (02:48)
[2018-05-07] MEDS: SODIUM CHLORIDE 1,000 ML IV SCH (02:55)
[2018-05-07] MEDS: KCL 10 MEQ IVPB 10 MEQ/100 ML INFUS.BAG IVPB SCH ×3 (02:55→18:18)
[2018-05-07 07:59] LABS: MAGNESIUM 1.9 mg/dL (1.8-2.4)
[2018-05-07] MEDS ORDERED: AZITHROMYCIN IVPB 500 MG/250 ML BAG IVPB SCH (10:00)
--- NOTE | 2018-05-07 11:26 | EKG ---
Test Reason : Blood Pressure : / mmHG Vent. Rate : 069 BPM Atrial Rate : 069 BPM P-R Int : 156 ms QRS Dur : 090 ms QT Int : 496 ms P-R-T Axes : 051 -28 -20 degrees QTc Int : 531 ms NORMAL SINUS RHYTHM MINIMAL VOLTAGE CRITERIA FOR LVH, MAY BE NORMAL VARIANT ANTERIOR INFARCT , AGE UNDETERMINED PROLONGED QT ABNORMAL ECG WHEN COMPARED WITH ECG OF 25-JAN-2018 16:47, T WAVE INVERSION NOW EVIDENT IN ANTERIOR LEADS Confirmed by KEITH MIJARES MD ([id number]) on 05/07/2018 11:26:11 AM Referred By: Confirmed By:KEITH MIJARES MD
[2018-05-07] MEDS ORDERED: CEFEPIME 2 GM in DEXTROSE 5%-WATER 100 ML IVPB SCH (12:45)
--- NOTE | 2018-05-07 14:48 | CON.PULM ---
Consult Consult Specialty:: PULMONARY Referred by:: PMD Reason for Consultation:: SOB - History of Present Illness Chief Complaint: BACK PAIN History of Present Illness: Pt is a 77 yo F, with PMH of CAD (with stents), DM, HTN, anemia, hypoNa, CVA (L- sided residual deficits/tremor), and breast CA, who is presenting with complaints of fatigue, decreased PO food and fluid intake, and sacral ulcers x1 month. Pt is accompanied by her son, who states the pt flew in from [place] today, and she was there for a month after her . Her son states that the pt was staying with her daughter in [place], but the family noticed the pt not ambulating and eating as often, and the family members could not help the pt with her activities of daily living. The ulcers in her sacral region started a few weeks ago since the pt has been lying in bed. The [place] today, and the son brought her immediately to the ER due to complaints of pain in sacral region and that pt appeared more weak than usual. The pt has no family members available here who will be able to help her with her daily activities. Pt denies any fevers/chills, headache, vision changes, chest pain, palpitations, SOB, nausea/vomiting, abdominal pain, urinary symptoms, diarrhea/ constipation, or leg swelling more than usual. 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: CVA Cardio/Vascular: Yes: CAD (stent), HTN, Hyperlipdemia Pulmonary: Yes: Asthma Gastrointestinal: Yes: Ascites (h/o sbp intolerant to bactrim and levaquin), Esophageal Varices (h/o bleeding, banding and on nadalol), GI Bleed (variceal and duodenal ulcer), Peptic Ulcer Disease, Other (diabetic gastropareis, h/o hpylori rxed with pylera) Hepatobiliary: Yes: Cirrhosis ...: No Heme/Onc: No: Anemia Psych: Yes: Depression Endocrine: Yes: Diabetes Mellitus (historically poor control) Dermatology: Yes: Other (SACRAL DECUBITI) - Past Surgical History Past Surgical History: Yes: Colonoscopy (multiple large polyps. poor prep in past.), Stent (cardiac), Tonsillectomy, Upper Endoscopy (h/o esoph varices. on nadalol. s/p banding. due to surveillance egd in 01/2015) - Alcohol/Substance Use Hx Alcohol Use: No History of Substance Use: reports: None - Smoking History Smoking history: Never smoked Have you smoked in the past 12 months: No Aproximately how many cigarettes per day: 0 If you are a former smoker, when did you quit?: over 30 years ago - Social History Usual Living Arrangement: Alone ADL: Independent Place of : Other History of Recent Travel: Yes Home Medications - Allergies Allergies/Adverse Reactions: Allergies Allergy/AdvReac Type Severity Reaction Status Date / Time levofloxacin [From Levaquin] Allergy Intermediate Rash Verified 05/06/18 16:50 Penicillins Allergy Rash Verified 05/06/18 16:50 sulfamethoxazole AdvReac Intermediate Verified 05/06/18 16:50 [From Bactrim] trimethoprim [From Bactrim] AdvReac Intermediate Verified 05/06/18 16:50 - Home Medications Home Medications: Ambulatory Orders Aspirin [ASA -] 81 mg PO DAILY 10/09/14 Albuterol Sulfate [Proventil HFA Inhaler -] 1 - 2 inh PO Q4H PRN 07/03/15 Nadolol [Corgard -] 20 mg PO DAILY tablet 09/05/17 Albuterol 0.083% Nebulizer Elizabeth [Ventolin 0.083% Nebulizer Soln -] 1 amp NEB PRN PRN 01/24/18 Amlodipine Besylate [Norvasc -] 5 mg PO DAILY 01/24/18 Escitalopram Oxalate [Lexapro -] 10 mg PO DAILY 01/24/18 Fludrocortisone Acetate [Florinef -] 0.1 mg PO DAILY 01/24/18 Fluticasone Furoate [Arnuity Ellipta] 100 mcg IH DAILY 01/24/18 Insulin Lispro [Humalog Kwikpen U-100] 100 unit SQ ASDIR 01/24/18 Losartan Potassium [Cozaar -] 25 mg PO DAILY 01/24/18 Pantoprazole Sodium [Protonix] 40 mg PO DAILY 01/24/18 Rosuvastatin [Crestor -] 20 mg PO DAILY 01/24/18 Umeclidinium [place] [Incruse Ellipta] 62.5 mcg IH DAILY 01/24/18 Sitagliptin Phosphate [Januvia -] 100 mg PO DAILY@0700 #30 ud 02/04/18 Potassium Chloride [K-Dur -] 20 meq PO DAILY #30 tablet.er 02/05/18 Insulin (Levemir) [Levemir Vial] 12 units SQ AM #100 units 02/07/18 Family Disease History - Family Disease History Family Disease History: Diabetes: Brother Review of Systems Unable to obtain ROS, reason: POOR INFORMANT - Review of Systems Musculoskeletal: reports: Back Pain Physical Exam Vital Sings: Vital Signs Temperature 96.5 F L 05/06/18 16:40 Pulse Rate 56 L 05/06/18 16:40 Respiratory Rate 16 05/06/18 16:40 Blood Pressure 130/55 L 05/06/18 16:40 O2 Sat by Pulse Oximetry (%) 98 05/06/18 16:40 Constitutional: Yes: Anxious Eyes: Yes: EOM Intact HENT: Yes: Normocephalic Neck: Yes: Trachea Midline Cardiovascular: Yes: Regular Rate and Rhythm Respiratory: Yes: Diminished Gastrointestinal: Yes: Normal Bowel Sounds Edema: LLE: 1+, RLE: 1+ Integumentary: Yes: Other (SACRAL DECUBITI) Labs: CBC, BMP 05/06/18 18:54 05/06/18 18:15 REST REVIEWED Imaging - Results Chest X-ray: Report Reviewed, Image Reviewed Cat Scan: Report Reviewed Ultrasound: Report Reviewed Problem List - Problems (1) Asthma Code(s): J45.909 - UNSPECIFIED ASTHMA, UNCOMPLICATED Qualifiers: Asthma severity: unspecified severity Asthma complication type: uncomplicated (2) Breast cancer Code(s): C50.919 - MALIGNANT NEOPLASM OF UNSP SITE OF UNSPECIFIED FEMALE BREAST (3) CVA (cerebral infarction) Code(s): I63.9 - CEREBRAL INFARCTION, UNSPECIFIED Qualifiers: Cerebral infarction mechanism: unspecified mechanism Qualified Code(s): I63.9 - Cerebral infarction, unspecified (4) Chronic ischemic heart disease Code(s): I25.9 - CHRONIC ISCHEMIC HEART DISEASE, UNSPECIFIED (5) Cirrhosis of liver Code(s): K74.60 - UNSPECIFIED CIRRHOSIS OF LIVER Qualifiers: Hepatic cirrhosis type: alcoholic cirrhosis Ascites presence: without ascites Qualified Code(s): K70.30 - Alcoholic cirrhosis of liver without ascites (6) Coagulopathy Code(s): D68.9 - COAGULATION DEFECT, UNSPECIFIED (7) Depression Code(s): F32.9 - MAJOR DEPRESSIVE DISORDER, SINGLE EPISODE, UNSPECIFIED (8) Diabetes Code(s): E11.9 - TYPE 2 DIABETES MELLITUS WITHOUT COMPLICATIONS Qualifiers: Diabetes mellitus type: type 2 (9) Esophageal varices without bleeding Code(s): I85.00 - ESOPHAGEAL VARICES WITHOUT BLEEDING (10) Hyperlipidemia Code(s): E78.5 - HYPERLIPIDEMIA, UNSPECIFIED Qualifiers: Hyperlipidemia type: pure hypercholesterolemia Qualified Code(s): E78.00 - Pure hypercholesterolemia, unspecified; E78.0 - Pure hypercholesterolemia (11) Hypertension Code(s): I10 - ESSENTIAL (PRIMARY) HYPERTENSION (12) S/P coronary artery stent placement Code(s): Z95.5 - PRESENCE OF CORONARY ANGIOPLASTY IMPLANT AND GRAFT Assessment/Plan 77 YEAR OLD FEMALE APPEARING MUCH OLDER THAN STATED AGE DEVELOPED SACRAL DECUBITI AND SEVERE PAIN WITH SIGNS OF INFECTION LIKELY POLYMICROBIAL SACRAL ULCER INFECTION MULTIPLE CO-MORBID CONDITIONS: CVA/PCI STENT/BREAST CA BILATERAL INFILTRATES NOTED ON CXR APPEARING CHRONIC IN NATURE UPON REVIEW OF PREV CT CHEST (01/2018) INFILTRATES AND B/L NODULES ARE PRESENT WHICH COULD BE C/W METASTATIC DISEASE GOALS OF CARE TO BE DETERMINED REVIEW OLD RECORDS NOT TO REPEAT RECENT TESTING O2 SUPPLEMENTATION CUTURE DECUBITI WILL LIKELY NEED A DEBRIDEMENT AND OFFLOADING/WOUND CONSULT SHOULD BE CALLED WOULD CONTINUE BRONCHODILATORS GLYCEMIC CONTROL PAIN RELIEF Omega AMARO MD
[2018-05-07] MEDS ORDERED: KCL 10 MEQ IVPB 20 MEQ/200 ML INFUS.BAG IVPB ONE (15:47)
[2018-05-07] MEDS ORDERED: AZITHROMYCIN IVPB 500 MG/250 ML BAG IVPB ONE (15:47)
--- NOTE | 2018-05-07 15:57 | PN ---
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 sacral ulcer is superficial and not infected no signs sepsis other then elevated lactic acid etiology of her liver cirrhosis is unclear as well I don't think she has sepsis- but cultures have been sent her cxray is unchanged and her decubitus is a stage 2 and not infected her hip pain may be from her comp fx l1 rocephin for now (has tolerated cephalsosporins in the past)-would stop if cultures are negative multiple antibiotic allergies noted Problem List - Problems (1) Elevated lactic acid level Code(s): R79.89 - OTHER SPECIFIED ABNORMAL FINDINGS OF BLOOD CHEMISTRY (2) Sacral ulcer Code(s): L98.429 - NON-PRESSURE CHRONIC ULCER OF BACK WITH UNSPECIFIED SEVERITY (3) Cirrhosis of liver Code(s): K74.60 - UNSPECIFIED CIRRHOSIS OF LIVER Qualifiers: Hepatic cirrhosis type: alcoholic cirrhosis Ascites presence: without ascites Qualified Code(s): K70.30 - Alcoholic cirrhosis of liver without ascites (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
[2018-05-07 16:26] LABS: BASO % 0.6 % (0-2.0); EOS % 3.4 % (0-4.5); HEMATOCRIT 44.5 % (32.4-45.2); LYMPH % 15.6 % (8-40); MCH 29.5 pg (25.7-33.7); MCHC 33.7 g/dl (32.0-36.0); MEAN CELL VOLUME 87.4 fl (80-96); MEAN PLT VOLUME 8.5 fl (7.5-11.1); MONO % 6.9 % (3.8-10.2); NEUT % 73.5 % (42.8-82.8); PLATELET COUNT 147 K/MM3 (134-434); RBC 5.09 M/mm3 (3.60-5.2); WHITE BLOOD COUNT 9.7 K/mm3 (4.0-10.0)
[2018-05-07 16:46] LABS: ALBUMIN 2.2 g/dl (3.4-5.0); ALK PHOS 218 U/L (45-117); ANION GAP 8 MMOL/L (8-16); BILIRUBIN,TOTAL 2.4 mg/dL (0.2-1); BLOOD UREA NITROGEN 7 mg/dL (7-18); CALCIUM 8.4 mg/dL (8.5-10.1); CHLORIDE 111 mmol/L (98-107); CO2 26 mmol/L (21-32); GLUCOSE,RANDOM 167 mg/dL (74-106); LDH 352 U/L (84-246); POTASSIUM 3.1 mmol/L (3.5-5.1); SGOT/AST 54 U/L (15-37); SGPT/ALT 33 U/L (13-61); SODIUM 145 mmol/L (136-145); TOT PROT 6.2 g/dl (6.4-8.2)
--- NOTE | 2018-05-07 16:46 | CONS ---
INFECTIOUS DISEASE CONSULTATION REQUESTED BY: Hospitalist service DATE OF CONSULTATION: DATE OF DICTATION: 05/07/2018 HISTORY OF PRESENT ILLNESS: This is a 77-year-old woman who was brought directly to the hospital from the airport. She lost her last month in [place]. She has been eating poorly and not ambulating there. She says she has not been ambulating due to pain in her right hip. She developed a bedsore. When her son picked her up at the airport, he brought her to the hospital because she was complaining of severe sacral pain. She was evaluated in the emergency room where she was noted to have generalized weakness. She was hypothermic and had an elevated lactic acid with a normal white count. She was admitted for sepsis. Her workup to date has included a CAT scan of her abdomen and pelvis that showed ascites, cirrhosis, varices, and a compression fracture of L1. Ultrasound as well showed the ascites. She has a chest x-ray unchanged from prior films that shows increased interstitial and nodular infiltrates. The patient has a history in 2015 of a workup that revealed that. She was treated for this by Dr. Petersen at that time. ALLERGIES: She has multiple allergies including LEVAQUIN, PENICILLIN and BACTRIM. She has tolerated cephalosporins in the past. PAST MEDICAL HISTORY: Notable for coronary artery disease, diabetes, hypertension, CVA in 2013, anemia, breast cancer, and liver cirrhosis of unclear etiology. MEDICATIONS: At home include aspirin, albuterol, Corgard, amlodipine, Lexapro, Florinef, fluticasone, insulin, losartan, Protonix, Crestor, Januvia, potassium. SOCIAL HISTORY: She just lost her and she has returned to live with her son. There is no history of cigarette or substance abuse. REVIEW OF SYSTEMS: She has had a poor appetite. She reports hip pain which is making it difficult for her to ambulate. She denies any cough or shortness of breath. PHYSICAL EXAM: General: She is awake and alert. She notes bilateral lower extremity pain and lower back pain. She is completely alert. Vital Signs: Temperature is 98.2, pulse 56, blood pressure 130/55, respiratory rate 16, weight is 72 kg. She is saturating 98% on room air. HEENT: She is normocephalic. Her eyes are anicteric. Neck: Supple. Lungs: Have bibasilar crackles. Heart: Regular rate and rhythm. Abdomen: Soft, nontender. Extremities: Without edema. Skin: She has a stage 2 sacral ulcer with minimal erythema. There are no erosions. There is no purulence and there is nothing to suggest infection. DIAGNOSTIC DATA: She had an influenza screen that is negative. White count is 10.2. Hemoglobin is 16.3, platelets are 155. BUN 9, creatinine 1.1. Glucose 212. Total bilirubin of 3.4 with alkaline phosphatase of 248. Cultures have been sent. IN SUMMARY: This is an elderly woman who has been brought to the hospital with prior history of pulmonary mass with a superficial sacral ulcer and hip that could be well referred from the compression fracture of L1. I would treat her with Rocephin for now. She has tolerated cephalosporins in the past, though I doubt she has sepsis and would stop antibiotics if the cultures are negative. Multiple antibiotic allergies are noted. The etiology of her hip pain needs to be investigated as well as her generalized weakness and poor appetite. The etiology of her cirrhosis as well is unclear. Further recommendations to follow. The case was discussed with the hospitalist. Moisés [id number]
--- NOTE | 2018-05-07 18:11 | PN ---
Progress Note, Physician Chief Complaint: back pain Depression lactic acidosis History of Present Illness: Brought in to the hospital directly from the airport Lost her 1 month ago, has been declining ever since Depressed Stage 3 on coccyx area, mild purulent drainage on the dressing c/o back pain hx of MAC, ground glass appearance on CT n CXR Liver cirrhosis 2/2 to alcohol abuse? 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 Last Colonoscopy/EGD-07/03/15- several hyperplastic polyps - Current Medication List Current Medications: Active Medications Sodium Chloride (Normal Saline -) 1,000 mls @ 75 mls/hr IV ASDIR KANNAN Last Admin: 05/07/18 02:55 Dose: 75 mls/hr Ceftriaxone Sodium 1 gm/ (Dextrose) 50 mls @ 100 mls/hr IVPB DAILY KANNAN; Protocol Insulin Aspart (Novolog Vial Sliding Scale -) 1 vial SQ ACHS KANNAN; Protocol - Objective Vital Signs: Vital Signs Temperature 96.5 F L 05/06/18 16:40 Pulse Rate 56 L 05/06/18 16:40 Respiratory Rate 16 05/06/18 16:40 Blood Pressure 130/55 L 05/06/18 16:40 O2 Sat by Pulse Oximetry (%) 98 05/06/18 16:40 Constitutional: Yes: Well Nourished, No Distress, Calm Cardiovascular: Yes: Regular Rate and Rhythm Respiratory: Yes: Regular Gastrointestinal: Yes: Normal Bowel Sounds, Soft Musculoskeletal: Yes: Muscle Weakness Extremities: Yes: WNL Edema: No Peripheral Pulses WNL: Yes Integumentary: Yes: Pressure Ulcer (stage III) Neurological: Yes: Alert, Pre-Existing Deficit Psychiatric: Yes: Alert Labs: CBC, BMP 05/07/18 15:50 05/07/18 15:50 INR, PTT INR 1.25 (0.83-1.09) H 05/06/18 18:54 Problem List - Problems (1) Back pain Assessment/Plan: -2/2 to compression fracture of L1 and L4, L1-acute/subacute -has had kyphoplasty for L4 fx -NS consult -pain management Code(s): M54.9 - DORSALGIA, UNSPECIFIED (2) Elevated lactic acid level Assessment/Plan: -not 2/2 to sepsis -multifactorial-malignancy?DM2 Code(s): R79.89 - OTHER SPECIFIED ABNORMAL FINDINGS OF BLOOD CHEMISTRY (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 Assessment/Plan: -Pulmonary consult -is not on any maintenance abx -no acute symptoms at this time Code(s): A31.0 - PULMONARY MYCOBACTERIAL INFECTION (4) Lactic acidosis Code(s): E87.2 - ACIDOSIS (5) Sacral decubitus ulcer Code(s): L89.159 - PRESSURE ULCER OF SACRAL REGION, UNSPECIFIED STAGE Qualifiers: Pressure injury stage: stage 2 Qualified Code(s): L89.152 - Pressure ulcer of sacral region, stage 2 (6) Cirrhosis of liver Code(s): K74.60 - UNSPECIFIED CIRRHOSIS OF LIVER Qualifiers: Hepatic cirrhosis type: alcoholic cirrhosis Ascites presence: without ascites Qualified Code(s): K70.30 - Alcoholic cirrhosis of liver without ascites (7) Diabetes Assessment/Plan: -Check A1c -Start Metformin 500 mg po bid, given her renal fxn is normal -Novolog sliding scale -BGM AC HS -Diabetic/low sodium diet Code(s): E11.9 - TYPE 2 DIABETES MELLITUS WITHOUT COMPLICATIONS Qualifiers: Diabetes mellitus type: type 2 (8) Hypokalemia Assessment/Plan: -2/2 to decreased po intake -replace and monitor trend Code(s): E87.6 - HYPOKALEMIA Assessment/Plan see problem list Physical therapy
[2018-05-07] MEDS: INSULIN SLIDING SCALE (NOVOLOG) 1 VIAL SQ SCH ×2 (18:21→21:42)
[2018-05-07] MEDS: CEFEPIME HCL/D5W 2 GM/50 ML BAG IVPB SCH ×2 (18:27→20:12)
[2018-05-07] MEDS ORDERED: CEFTRIAXONE 1 GM/50 ML BAG ONE (18:29)
[2018-05-07] MEDS: CEFTRIAXONE 1 GM in DEXTROSE 5%-WATER - 50 ML IVPB SCH (18:30)
[2018-05-08] MEDS ORDERED: MORPHINE SULFATE 2 MG/ML VIAL IVPUSH ONE ×2 (00:54→01:30)
[2018-05-08] MEDS: INSULIN SLIDING SCALE (NOVOLOG) 1 VIAL SQ SCH ×5 (02:00→21:27)
[2018-05-08] MEDS ORDERED: MORPHINE SULFATE 2 MG/ML VIAL ONE (02:08)
[2018-05-08] MEDS: SODIUM CHLORIDE 1,000 ML IV SCH (02:51)
[2018-05-08 07:41] LABS: BASO % 0.6 % (0-2.0); EOS % 3.3 % (0-4.5); HEMATOCRIT 42.2 % (32.4-45.2); LYMPH % 20.4 % (8-40); MCH 28.9 pg (25.7-33.7); MCHC 33.2 g/dl (32.0-36.0); MEAN CELL VOLUME 87.1 fl (80-96); MEAN PLT VOLUME 8.2 fl (7.5-11.1); MONO % 8.1 % (3.8-10.2); NEUT % 67.6 % (42.8-82.8); PLATELET COUNT 129 K/MM3 (134-434); RBC 4.85 M/mm3 (3.60-5.2); RDW 18.5 % (11.6-15.6); WHITE BLOOD COUNT 8.1 K/mm3 (4.0-10.0)
[2018-05-08 08:54] LABS: ALK PHOS 205 U/L (45-117); ANION GAP 9 MMOL/L (8-16); BILIRUBIN,TOTAL 1.9 mg/dL (0.2-1); BLOOD UREA NITROGEN 7 mg/dL (7-18); CALCIUM 8.4 mg/dL (8.5-10.1); CHLORIDE 115 mmol/L (98-107); CO2 23 mmol/L (21-32); CREATININE 0.8 mg/dL (0.55-1.3); GLUCOSE,RANDOM 146 mg/dL (74-106); SGOT/AST 49 U/L (15-37); SGPT/ALT 32 U/L (13-61); SODIUM 147 mmol/L (136-145); TOT PROT 5.8 g/dl (6.4-8.2)
[2018-05-08 09:00] LABS: POTASSIUM 2.8 mmol/L (3.5-5.1)
[2018-05-08] MEDS ORDERED: DEXTROSE 5%-WATER - 50 ML IVPB ONE (09:27)
[2018-05-08] MEDS ORDERED: cefTRIAXone SODIUM 1 GM VIAL ONE (09:27)
[2018-05-08] MEDS: CEFTRIAXONE 1 GM in DEXTROSE 5%-WATER - 50 ML IVPB SCH (09:29)
[2018-05-08] MEDS ORDERED: POTASSIUM CHLORIDE ORAL LIQUID 20 MEQ/15 ML PO ONE ×2 (10:50→15:09)
[2018-05-08 11:26] LABS: MAGNESIUM 1.5 mg/dL (1.8-2.4)
[2018-05-08] MEDS ORDERED: MAGNESIUM SULF 50% (8.12 MEQ/2 ML-1 GM VIAL) IVPB ONE (11:57)
[2018-05-08] MEDS ORDERED: ACETAMINOPHEN 325 MG TABLET (FP) PO PRN (12:02)
--- NOTE | 2018-05-08 12:03 | PN ---
Progress Note, Physician Chief Complaint: patient in bed complaining of back pain - Current Medication List Current Medications: Active Medications Sodium Chloride (Normal Saline -) 1,000 mls @ 75 mls/hr IV ASDIR [facility] Last Admin: 05/08/18 02:51 Dose: 75 mls/hr Ceftriaxone Sodium 1 gm/ (Dextrose) 50 mls @ 100 mls/hr IVPB DAILY [facility]; Protocol Last Admin: 05/08/18 09:29 Dose: 100 mls/hr Insulin Aspart (Novolog Vial Sliding Scale -) 1 vial SQ ACHS [facility]; Protocol Last Admin: 05/08/18 06:18 Dose: Not Given Potassium Chloride (Potassium Chloride Oral Liquid) 40 meq PO ONCE ONE Stop: 05/08/18 15:10 - Objective Vital Signs: Vital Signs Temperature 98.6 F 05/08/18 06:00 Pulse Rate 67 05/08/18 06:00 Respiratory Rate 18 05/08/18 06:00 Blood Pressure 151/76 05/08/18 06:00 O2 Sat by Pulse Oximetry (%) 97 05/07/18 23:00 Constitutional: Yes: Anxious Cardiovascular: Yes: Regular Rate and Rhythm, S1, S2 Respiratory: Yes: CTA Bilaterally Gastrointestinal: Yes: Normal Bowel Sounds, Soft Labs: CBC, BMP 05/08/18 06:50 05/08/18 06:50 INR, PTT INR 1.25 (0.83-1.09) H 05/06/18 18:54 Problem List - Problems (1) Back pain Assessment/Plan: ct abdomen show compression fracture of L1 gage get ANSELMO eval pain control/ stool softner Code(s): M54.9 - DORSALGIA, UNSPECIFIED (2) Electrolyte abnormality Assessment/Plan: potassium and magnesium repleted recheck in AM Code(s): E87.8 - OTH DISORDERS OF ELECTROLYTE AND FLUID BALANCE, NEC (3) Sacral decubitus ulcer Assessment/Plan: frequent turn position wound care consult wound culture pending Code(s): L89.159 - PRESSURE ULCER OF SACRAL REGION, UNSPECIFIED STAGE Qualifiers: Pressure injury stage: stage 2 Qualified Code(s): L89.152 - Pressure ulcer of sacral region, stage 2 (4) Elevated lactic acid level Assessment/Plan: ID consult ordered got iv vancomycin yesterday Microbiology 05/06/18 18:31 Blood - Peripheral Venous Blood Culture - Preliminary NO GROWTH OBTAINED AFTER 24 HOURS, INCUBATION TO CONTINUE FOR 4 DAYS. 05/06/18 18:31 Blood - Peripheral Venous Blood Culture - Preliminary NO GROWTH OBTAINED AFTER 24 HOURS, INCUBATION TO CONTINUE FOR 4 DAYS. Code(s): R79.89 - OTHER SPECIFIED ABNORMAL FINDINGS OF BLOOD CHEMISTRY
[2018-05-08] MEDS: oxyCODONE HCL 5 MG TABLET PO PRN (12:11)
[2018-05-08 13:15] LABS: HEP.C VIRUS AB <0.1 s/co ratio (0.0-0.9)
--- NOTE | 2018-05-08 14:28 | PN ---
Progress Note, Physician History of Present Illness: PULMONARY ALERT,NO DISTRESS,C/O BACK PAIN - Current Medication List Current Medications: Active Medications Acetaminophen (Tylenol -) 650 mg PO Q6H PRN PRN Reason: PAIN LEVEL 4 - 6 Heparin Sodium (Porcine) (Heparin -) 5,000 unit SQ BID [facility] Sodium Chloride (Normal Saline -) 1,000 mls @ 75 mls/hr IV ASDIR [facility] Last Admin: 05/08/18 02:51 Dose: 75 mls/hr Ceftriaxone Sodium 1 gm/ (Dextrose) 50 mls @ 100 mls/hr IVPB DAILY [facility]; Protocol Last Admin: 05/08/18 09:29 Dose: 100 mls/hr Insulin Aspart (Novolog Vial Sliding Scale -) 1 vial SQ ACHS [facility]; Protocol Last Admin: 05/08/18 12:04 Dose: Not Given Oxycodone HCl (Roxicodone -) 5 mg PO Q6H PRN PRN Reason: PAIN LEVEL 7 - 10 Last Admin: 05/08/18 12:11 Dose: 5 mg Potassium Chloride (Potassium Chloride Oral Liquid) 40 meq PO ONCE ONE Stop: 05/08/18 15:10 - Objective Vital Signs: Vital Signs Temperature 98.6 F 05/08/18 06:00 Pulse Rate 67 05/08/18 06:00 Respiratory Rate 18 05/08/18 06:00 Blood Pressure 151/76 05/08/18 06:00 O2 Sat by Pulse Oximetry (%) 97 05/07/18 23:00 Constitutional: Yes: Well Nourished, Calm Eyes: Yes: WNL HENT: Yes: WNL Neck: Yes: WNL Cardiovascular: Yes: Regular Rate and Rhythm, S1, S2 Respiratory: Yes: Diminished Gastrointestinal: Yes: Normal Bowel Sounds, Soft Extremities: Yes: WNL Edema: No Labs: CBC, BMP 05/08/18 06:50 05/08/18 06:50 INR, PTT INR 1.25 (0.83-1.09) H 05/06/18 18:54 Assessment/Plan Problem List - Problems (1) Asthma Code(s): J45.909 - UNSPECIFIED ASTHMA, UNCOMPLICATED Qualifiers: Asthma severity: unspecified severity Asthma complication type: uncomplicated (2) Breast cancer Code(s): C50.919 - MALIGNANT NEOPLASM OF UNSP SITE OF UNSPECIFIED FEMALE BREAST (3) CVA (cerebral infarction) Code(s): I63.9 - CEREBRAL INFARCTION, UNSPECIFIED Qualifiers: Cerebral infarction mechanism: unspecified mechanism Qualified Code(s): I63.9 - Cerebral infarction, unspecified (4) Chronic ischemic heart disease Code(s): I25.9 - CHRONIC ISCHEMIC HEART DISEASE, UNSPECIFIED (5) Cirrhosis of liver Code(s): K74.60 - UNSPECIFIED CIRRHOSIS OF LIVER Qualifiers: Hepatic cirrhosis type: alcoholic cirrhosis Ascites presence: without ascites Qualified Code(s): K70.30 - Alcoholic cirrhosis of liver without ascites (6) Coagulopathy Code(s): D68.9 - COAGULATION DEFECT, UNSPECIFIED (7) Depression Code(s): F32.9 - MAJOR DEPRESSIVE DISORDER, SINGLE EPISODE, UNSPECIFIED (8) Diabetes Code(s): E11.9 - TYPE 2 DIABETES MELLITUS WITHOUT COMPLICATIONS Qualifiers: Diabetes mellitus type: type 2 (9) Esophageal varices without bleeding Code(s): I85.00 - ESOPHAGEAL VARICES WITHOUT BLEEDING (10) Hyperlipidemia Code(s): E78.5 - HYPERLIPIDEMIA, UNSPECIFIED Qualifiers: Hyperlipidemia type: pure hypercholesterolemia Qualified Code(s): E78.00 - Pure hypercholesterolemia, unspecified; E78.0 - Pure hypercholesterolemia (11) Hypertension Code(s): I10 - ESSENTIAL (PRIMARY) HYPERTENSION (12) S/P coronary artery stent placement Code(s): Z95.5 - PRESENCE OF CORONARY ANGIOPLASTY IMPLANT AND GRAFT Assessment/Plan SACRAL DECUBITI AND SEVERE PAIN WITH SIGNS OF INFECTION LIKELY POLYMICROBIAL SACRAL ULCER INFECTION CVA PCI STENT BREAST CA BILATERAL INFILTRATES NOTED ON CXR APPEARING CHRONIC IN NATURE H/O KALIE GOALS OF CARE TO BE DETERMINED O2 SUPPLEMENTATION WILL LIKELY NEED A DEBRIDEMENT AND OFFLOADING/WOUND CONSULT SHOULD BE CALLED WOULD CONTINUE BRONCHODILATORS GLYCEMIC CONTROL PAIN RELIEF DR WESLEY
--- NOTE | 2018-05-08 15:07 | CONSULT ---
Consult - text type - Consultation Consultation Note: NEUROSURGERY CONSULTATION Sue Ribera is a 77 year old female who was brought into the ER with a recent history of back pain and inability to ambulate. The patient has multiple medical problems including: CAD, DM, HTN, CVA in 2014, anemia, and Breast cancer. The patient is lying in bed and describes a fall approximately 1 week ago. She has pain associated with changes in position and had difficulty getting on and off a bedpan. She has not been ambulating due to back pain. CT Lumbar demonstrates fractures in L4 and L1. The L4 fracture was treated with percutaneous cement augmentation (likely kyphoplasty) and the L1 fracture appears new. The L1 fracture was not present on CT Lumbar performed on February. There is retropulsion of bone (burst fracture) and at least 50% canal compromise. It is not easy to determine the level of the conus on the CT images , however, there is concern for possible compression. 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 This patient may experience some pain control and ability to ambulate with Physical Therapy with a Lumbar corset (abdominal binder versus Addison Quickdraw type brace). I feel that MRI Lumbar will be important to evaluate the spinal cord/conus, and posterior ligamentous complex as well as to check for edema within L1 (to determine acuity).
[2018-05-08 17:18] LABS: ALBUMIN 2.1 g/dl (3.4-5.0); ALK PHOS 218 U/L (45-117); ANION GAP 8 MMOL/L (8-16); BILIRUBIN,TOTAL 1.7 mg/dL (0.2-1); BLOOD UREA NITROGEN 8 mg/dL (7-18); CALCIUM 8.3 mg/dL (8.5-10.1); CHLORIDE 113 mmol/L (98-107); CO2 24 mmol/L (21-32); CREATININE 0.9 mg/dL (0.55-1.3); GLUCOSE,RANDOM 217 mg/dL (74-106); SGOT/AST 50 U/L (15-37); SGPT/ALT 33 U/L (13-61); SODIUM 145 mmol/L (136-145); TOT PROT 6.1 g/dl (6.4-8.2)
[2018-05-08] MEDS: HEPARIN NA (PORCINE) 5,000 UNITS/ML 1ML VIAL SQ SCH (21:24)
[2018-05-08 21:37] VITALS: BMI 27.4
[2018-05-09] MEDS: INSULIN SLIDING SCALE (NOVOLOG) 1 VIAL SQ SCH ×4 (06:26→21:48)
[2018-05-09] MEDS: SODIUM CHLORIDE 1,000 ML IV SCH (06:26)
[2018-05-09] MEDS: oxyCODONE HCL 5 MG TABLET PO PRN (06:29)
[2018-05-09 07:12] LABS: CARCINOEMBRYONIC ANTIGEN 4.6 ng/mL (0.0-4.7)
[2018-05-09 07:27] LABS: BASO % 0.4 % (0-2.0); EOS % 2.3 % (0-4.5); HEMATOCRIT 41.6 % (32.4-45.2); HEMOGLOBIN 13.9 GM/dL (10.7-15.3); LYMPH % 19.6 % (8-40); MCH 29.1 pg (25.7-33.7); MCHC 33.4 g/dl (32.0-36.0); MEAN CELL VOLUME 87.1 fl (80-96); MEAN PLT VOLUME 8.3 fl (7.5-11.1); MONO % 8.5 % (3.8-10.2); NEUT % 69.2 % (42.8-82.8); PLATELET COUNT 125 K/MM3 (134-434); RBC 4.77 M/mm3 (3.60-5.2); RDW 18.1 % (11.6-15.6); WHITE BLOOD COUNT 8.8 K/mm3 (4.0-10.0)
[2018-05-09 07:55] LABS: ALBUMIN 2.1 g/dl (3.4-5.0); ALK PHOS 201 U/L (45-117); ANION GAP 9 MMOL/L (8-16); BILIRUBIN,TOTAL 2.3 mg/dL (0.2-1); BLOOD UREA NITROGEN 6 mg/dL (7-18); CHLORIDE 112 mmol/L (98-107); CO2 23 mmol/L (21-32); CREATININE 0.7 mg/dL (0.55-1.3); GLUCOSE,RANDOM 111 mg/dL (74-106); SGOT/AST 47 U/L (15-37); SGPT/ALT 29 U/L (13-61); SODIUM 144 mmol/L (136-145); TOT PROT 5.7 g/dl (6.4-8.2)
[2018-05-09 08:13] LABS: POTASSIUM 2.9 mmol/L (3.5-5.1)
[2018-05-09] MEDS ORDERED: DEXTROSE 5%-WATER - 50 ML IVPB ONE (09:39)
[2018-05-09] MEDS ORDERED: cefTRIAXone SODIUM 1 GM VIAL ONE (09:39)
[2018-05-09] MEDS: POTASSIUM CHLORIDE ORAL LIQUID 20 MEQ/15 ML PO SCH (09:52)
[2018-05-09] MEDS: CEFTRIAXONE 1 GM in DEXTROSE 5%-WATER - 50 ML IVPB SCH (09:52)
[2018-05-09] MEDS: HEPARIN NA (PORCINE) 5,000 UNITS/ML 1ML VIAL SQ SCH ×2 (09:53→21:48)
[2018-05-09] MEDS: KCL 10 MEQ IVPB 10 MEQ/100 ML INFUS.BAG IVPB SCH ×3 (09:53→12:49)
--- NOTE | 2018-05-09 10:06 | PN ---
Progress Note, Physician Chief Complaint: back pain Depression lactic acidosis History of Present Illness: [place] Lost her 1 month ago, has been declining ever since Depressed Stage 3 on coccyx area, mild purulent drainage on the dressing c/o back pain hx of MAC, ground glass appearance on CT and CXR Liver cirrhosis 2/2 to alcohol abuse? 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 Last Colonoscopy/EGD-07/03/15- several hyperplastic polyps CA 19.9 elevated, however not diagnostic - Current Medication List Current Medications: Active Medications Acetaminophen (Tylenol -) 650 mg PO Q6H PRN PRN Reason: PAIN LEVEL 4 - 6 Last Admin: 05/09/18 09:51 Dose: 650 mg Duloxetine HCl (Cymbalta -) 20 mg PO DAILY [facility] Gabapentin (Neurontin -) 100 mg PO TID [facility] Heparin Sodium (Porcine) (Heparin -) 5,000 unit SQ BID [facility] Last Admin: 05/09/18 09:53 Dose: 5,000 unit Ceftriaxone Sodium 1 gm/ (Dextrose) 50 mls @ 100 mls/hr IVPB DAILY [facility]; Protocol Last Admin: 05/09/18 09:52 Dose: 100 mls/hr Potassium Chloride (Potassium Chloride 10 Meq Premix Ivpb -) 10 meq in 100 mls @ 100 mls/hr IVPB Q60M [facility] Stop: 05/09/18 12:29 Last Admin: 05/09/18 09:53 Dose: 100 mls/hr Insulin Aspart (Novolog Vial Sliding Scale -) 1 vial SQ ACHS [facility]; Protocol Last Admin: 05/09/18 06:26 Dose: Not Given Metformin HCl (Glucophage -) 500 mg PO BID@0700,1630 [facility] Oxycodone HCl (Roxicodone -) 5 mg PO Q6H PRN PRN Reason: PAIN LEVEL 7 - 10 Last Admin: 05/09/18 06:29 Dose: 5 mg Potassium Chloride (Potassium Chloride Oral Liquid) 40 meq PO DAILY [facility] Last Admin: 05/09/18 09:52 Dose: 40 meq - Objective Vital Signs: Vital Signs Temperature 98.3 F 05/09/18 06:54 Pulse Rate 90 01/01/19 06:54 Respiratory Rate 20 05/09/18 06:54 Blood Pressure 124/90 05/09/18 06:54 O2 Sat by Pulse Oximetry (%) 95 05/08/18 21:00 Constitutional: Yes: Well Nourished, No Distress, Calm Cardiovascular: Yes: Regular Rate and Rhythm Respiratory: Yes: Rales (BLL) Gastrointestinal: Yes: Normal Bowel Sounds, Soft, Abdomen, Obese, Ascites Genitourinary: Yes: WNL Musculoskeletal: Yes: Back Pain Extremities: Yes: WNL Edema: No Peripheral Pulses WNL: Yes Wound/Incision: Yes: Dressing Removed, Draining (minimal purulent) Neurological: Yes: Alert, Pre-Existing Deficit Psychiatric: Yes: Alert Labs: CBC, BMP 05/09/18 06:30 05/09/18 06:30 INR, PTT INR 1.25 (0.83-1.09) H 05/06/18 18:54 Problem List - Problems (1) Back pain Assessment/Plan: -2/2 to compression fracture of L1 and L4, L1-acute/subacute -has had kyphoplasty for L4 fx -NS consult -pain management -added gabapentin 100 mg po tid Code(s): M54.9 - DORSALGIA, UNSPECIFIED (2) Elevated lactic acid level Assessment/Plan: -not 2/2 to sepsis -multifactorial-malignancy?DM2 -D/C IVF Code(s): R79.89 - OTHER SPECIFIED ABNORMAL FINDINGS OF BLOOD CHEMISTRY (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 Assessment/Plan: -Pulmonary consult -is not on any maintenance abx -no acute symptoms at this time Code(s): A31.0 - PULMONARY MYCOBACTERIAL INFECTION (4) Sacral decubitus ulcer Assessment/Plan: -wound culture pending -Debridement not indicated -encouraged offloading -Allevyn dressing on the sacrum Code(s): L89.159 - PRESSURE ULCER OF SACRAL REGION, UNSPECIFIED STAGE Qualifiers: Pressure injury stage: stage 2 Qualified Code(s): L89.152 - Pressure ulcer of sacral region, stage 2 (5) Cirrhosis of liver Code(s): K74.60 - UNSPECIFIED CIRRHOSIS OF LIVER Qualifiers: Hepatic cirrhosis type: alcoholic cirrhosis Ascites presence: with ascites Qualified Code(s): K70.31 - Alcoholic cirrhosis of liver with ascites (6) Diabetes Assessment/Plan: -A1c 6.8 -Start Metformin 500 mg po bid, given her renal fxn is normal -Novolog sliding scale -BGM AC HS -Diabetic/low sodium diet Code(s): E11.9 - TYPE 2 DIABETES MELLITUS WITHOUT COMPLICATIONS Qualifiers: Diabetes mellitus type: type 2 (7) Hypokalemia Assessment/Plan: -2/2 to decreased po intake -replace= KCl 40 meq PO + KCl 10 meqx3 through IV -monitor trend Code(s): E87.6 - HYPOKALEMIA (8) Depression Assessment/Plan: -start cymbalta 20 mg po daily-anxiety/depression and hopefully chronic pain Code(s): F32.9 - MAJOR DEPRESSIVE DISORDER, SINGLE EPISODE, UNSPECIFIED Assessment/Plan see problem list Physical therapy
[2018-05-09] MEDS ORDERED: INSULIN (NOVOLOG) ASPART 100 UNITS/ML 10ML VIAL ONE ×3 (10:17→16:04)
--- NOTE | 2018-05-09 10:22 | CON.GI ---
Consult Consult Specialty:: GI: for Dr. Woods Referred by:: Dr. 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 Was living in [place] after the of her . Has a history of liver disease and she states being evaluated by Dr. Ekta Franlkin. She is aware that she is in [place] now but has not seen her of late. Dr. Pena's prior work-up of Ms. Ribera included 07/01/15 MRI/MRCP of abdomen that revealed cirrhotic appearing liver, renal cysts, enlarged heart and normal biliary tract. 07/03/17 colonoscopy revealed a diminutive cecal tubular adenoma, hyperplastic sigmoid polyp and prior tattoo site. 04/10/15 EGD revealed 2 columns of small-med sized varices. There were no stigmata described however banding was performed. Daily nadolol was recommended. Admission CT scan of the abdomen without contrast revealed thickened gastric wall, ascites, possible gallstones, slighltly disteneded gallbladder, splenomegaly. 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 poor prep in past.), Stent (cardiac), Tonsillectomy, Upper Endoscopy (h/o esoph varices. on nadalol. s/p banding. due to surveillance egd in 04/10/15) - Alcohol/Substance Use Hx Alcohol Use: Yes (occasional beer) History of Substance Use: reports: None - Smoking History Smoking history: Former smoker Have you smoked in the past 12 months: No Aproximately how many cigarettes per day: 0 If you are a former smoker, when did you quit?: over 30 years ago - Social History Usual Living Arrangement: Alone ADL: Independent Place of : Other ([place]) History of Recent Travel: Yes Home Medications - Allergies Allergies/Adverse Reactions: Allergies Allergy/AdvReac Type Severity Reaction Status Date / Time levofloxacin [From Levaquin] Allergy Intermediate Rash Verified 05/06/18 16:50 Penicillins Allergy Rash Verified 05/06/18 16:50 sulfamethoxazole AdvReac Intermediate Verified 05/06/18 16:50 [From Bactrim] trimethoprim [From Bactrim] AdvReac Intermediate Verified 05/06/18 16:50 - Home Medications Home Medications: Ambulatory Orders Aspirin [ASA -] 81 mg PO DAILY 10/09/14 Albuterol Sulfate [Proventil HFA Inhaler -] 1 - 2 inh PO Q4H PRN 07/03/15 Nadolol [Corgard -] 20 mg PO DAILY tablet 09/05/17 Amlodipine Besylate [Norvasc -] 5 mg PO DAILY 01/24/18 Escitalopram Oxalate [Lexapro -] 10 mg PO DAILY 01/24/18 Fludrocortisone Acetate [Florinef -] 0.1 mg PO DAILY 01/24/18 Fluticasone Furoate [Arnuity Ellipta] 100 mcg IH DAILY 01/24/18 Pantoprazole Sodium [Protonix] 40 mg PO DAILY 01/24/18 Umeclidinium [place] [Incruse Ellipta] 62.5 mcg IH DAILY 01/24/18 Atorvastatin Calcium [Lipitor] 10 mg PO DAILY 05/07/18 Humalog Kwikpen U-100 2 - 12 units SQ ASDIR PRN 05/07/18 Insulin (Levemir) [Levemir Vial] 50 units SQ ACDIN 05/07/18 Nortriptyline HCl [Pamelor -] 25 mg PO DAILY 05/07/18 Valsartan/Hydrochlorothiazide [Diovan Hct 320-12.5 mg Tab] 1 each PO 05/07/18 Family Disease History - Family Disease History Family Disease History: Diabetes: Brother (4 brothers), Other: Father ( 80's: unclear cancer), Mother ( 90's, unclear cause), Brother, Sister ( 7 sisters), Son (3, 1 : does not recall cause), Daughter (3) Review of Systems - Review of Systems Constitutional: denies: Chills Gastrointestinal: denies: Abdominal Pain, Bloating, Constipation, Diarrhea, Melena, Rectal Bleeding, Vomiting, Vomiting Blood Musculoskeletal: reports: Back Pain Physical Exam-GI Vital Signs: Vital Signs Temperature 98.3 F 05/09/18 06:54 Pulse Rate 90 05/09/18 06:54 Respiratory Rate 20 05/09/18 06:54 Blood Pressure 124/90 05/09/18 06:54 O2 Sat by Pulse Oximetry (%) 95 05/08/18 21:00 Constitutional: Yes: Calm Eyes: No: Sclera Icterus Cardiovascular: Yes: Regular Rate and Rhythm, Murmur (+ 2/6) Respiratory: Yes: Rhonchi (bilaterally) Gastrointestinal Inspection: Yes: Distention (mildly protuberant abdomen). No: Scars ...Auscultate: Yes: Normoactive Bowel Sounds ...Palpate: No: Hepatomegaly, Splenomegaly, Tenderness ...Percussion: No: Tympanitic Edema: No (No LE edema) Neurological: Yes: Alert, Oriented (x person, partially to place and time), Tremors. No: [facility] Labs: CBC, BMP 05/09/18 06:30 05/09/18 06:30 INR, PTT INR 1.25 (0.83-1.09) H 05/06/18 18:54 Hepatic Panel Total Bilirubin 2.3 mg/dL (0.2-1) H 05/09/18 06:30 AST 47 U/L (15-37) H 05/09/18 06:30 ALT 29 U/L (13-61) 05/09/18 06:30 Alkaline Phosphatase 201 U/L (45-117) H 05/09/18 06:30 Albumin 2.1 g/dl (3.4-5.0) L 05/09/18 06:30 Laboratory Tests 05/07/18 06:20 Hepatitis A IgM Ab Negative Hep Bs Antigen Negative Hep B Core IgM Ab Negative Hepatitis C Antibody <0.1 Imaging - Results Cat Scan: Report Reviewed, Image Reviewed Ultrasound: Report Reviewed (No biliary ductal dilatation) Problem List - Problems (1) Cirrhosis of liver Assessment/Plan: Unclear etiology: possibly MISHRA as she does not give heavy alcohol history Q6 Month AFP tumor marker and hepatic US Needs diuresis / further evaluation, CXR given tachypnea / rhonchi noted on exam : [employer] 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 Will need surveillance upper endopscopy when clinical condition permits as well. We discussed follow-up options. She was amenable to following up with Dr. Ekta [place] and explained that she would discuss things with her son. MRCP of the abdomen when clinical course permits for evaluation of biliary tract. No clinical cholecystitis. Suspect that thickened GB wall reflecting hypoalbuminemic state and ascites. 2g low Na diet Non-selective beta leander therapy Code(s): K74.60 - UNSPECIFIED CIRRHOSIS OF LIVER Qualifiers: Hepatic cirrhosis type: alcoholic cirrhosis Ascites presence: with ascites Qualified Code(s): K70.31 - Alcoholic cirrhosis of liver with ascites
[2018-05-09] MEDS: DULoxetine HCL 20 MG CAPSULE.DR (FP) PO SCH (11:47)
--- NOTE | 2018-05-09 11:49 | PN ---
Progress Note (short form) - Note Progress Note: PULMONARY VSS/AFEBRILE DAY #3 IV ANTIBIOTICS NO SIGNIFICANT CHANGE IN EXAM LABS/MEDS/NOTES REVIEWED - Problems (1) Asthma Code(s): J45.909 - UNSPECIFIED ASTHMA, UNCOMPLICATED Qualifiers: Asthma severity: unspecified severity Asthma complication type: uncomplicated (2) Breast cancer Code(s): C50.919 - MALIGNANT NEOPLASM OF UNSP SITE OF UNSPECIFIED FEMALE BREAST (3) CVA (cerebral infarction) Code(s): I63.9 - CEREBRAL INFARCTION, UNSPECIFIED Qualifiers: Cerebral infarction mechanism: unspecified mechanism Qualified Code(s): I63.9 - Cerebral infarction, unspecified (4) Chronic ischemic heart disease Code(s): I25.9 - CHRONIC ISCHEMIC HEART DISEASE, UNSPECIFIED (5) Cirrhosis of liver Code(s): K74.60 - UNSPECIFIED CIRRHOSIS OF LIVER Qualifiers: Hepatic cirrhosis type: alcoholic cirrhosis Ascites presence: without ascites Qualified Code(s): K70.30 - Alcoholic cirrhosis of liver without ascites (6) Coagulopathy Code(s): D68.9 - COAGULATION DEFECT, UNSPECIFIED (7) Depression Code(s): F32.9 - MAJOR DEPRESSIVE DISORDER, SINGLE EPISODE, UNSPECIFIED (8) Diabetes Code(s): E11.9 - TYPE 2 DIABETES MELLITUS WITHOUT COMPLICATIONS Qualifiers: Diabetes mellitus type: type 2 (9) Esophageal varices without bleeding Code(s): I85.00 - ESOPHAGEAL VARICES WITHOUT BLEEDING (10) Hyperlipidemia Code(s): E78.5 - HYPERLIPIDEMIA, UNSPECIFIED Qualifiers: Hyperlipidemia type: pure hypercholesterolemia Qualified Code(s): E78.00 - Pure hypercholesterolemia, unspecified; E78.0 - Pure hypercholesterolemia (11) Hypertension Code(s): I10 - ESSENTIAL (PRIMARY) HYPERTENSION (12) S/P coronary artery stent placement Code(s): Z95.5 - PRESENCE OF CORONARY ANGIOPLASTY IMPLANT AND GRAFT Assessment/Plan 77 YEAR OLD FEMALE APPEARING MUCH OLDER THAN STATED AGE DEVELOPED SACRAL DECUBITI AND SEVERE PAIN WITH SIGNS OF INFECTION LIKELY POLYMICROBIAL SACRAL ULCER INFECTION MULTIPLE CO-MORBID CONDITIONS: CVA/PCI STENT/BREAST CA BILATERAL INFILTRATES NOTED ON CXR APPEARING CHRONIC IN NATURE UPON REVIEW OF PREV CT CHEST (01/2018) INFILTRATES AND B/L NODULES ARE PRESENT WHICH COULD BE C/W METASTATIC DISEASE GOALS OF CARE TO BE DETERMINED REVIEW OLD RECORDS NOT TO REPEAT RECENT TESTING O2 SUPPLEMENTATION CUTURE DECUBITI WILL LIKELY NEED A DEBRIDEMENT AND OFFLOADING/WOUND CONSULT SHOULD BE CALLED WOULD CONTINUE BRONCHODILATORS GLYCEMIC CONTROL PAIN RELIEF CONSIDER CT CHEST GIVEN CXR FINDINGS Omega AMARO MD Problem List - Problems (1) Asthma Code(s): J45.909 - UNSPECIFIED ASTHMA, UNCOMPLICATED Qualifiers: Asthma severity: unspecified severity Asthma complication type: uncomplicated (2) Breast cancer Code(s): C50.919 - MALIGNANT NEOPLASM OF UNSP SITE OF UNSPECIFIED FEMALE BREAST (3) CVA (cerebral infarction) Code(s): I63.9 - CEREBRAL INFARCTION, UNSPECIFIED Qualifiers: Cerebral infarction mechanism: unspecified mechanism Qualified Code(s): I63.9 - Cerebral infarction, unspecified (4) Chronic ischemic heart disease Code(s): I25.9 - CHRONIC ISCHEMIC HEART DISEASE, UNSPECIFIED (5) Cirrhosis of liver Code(s): K74.60 - UNSPECIFIED CIRRHOSIS OF LIVER Qualifiers: Hepatic cirrhosis type: alcoholic cirrhosis Ascites presence: with ascites Qualified Code(s): K70.31 - Alcoholic cirrhosis of liver with ascites (6) Coagulopathy Code(s): D68.9 - COAGULATION DEFECT, UNSPECIFIED (7) Depression Code(s): F32.9 - MAJOR DEPRESSIVE DISORDER, SINGLE EPISODE, UNSPECIFIED (8) Diabetes Code(s): E11.9 - TYPE 2 DIABETES MELLITUS WITHOUT COMPLICATIONS Qualifiers: Diabetes mellitus type: type 2 (9) Esophageal varices without bleeding Code(s): I85.00 - ESOPHAGEAL VARICES WITHOUT BLEEDING (10) Hyperlipidemia Code(s): E78.5 - HYPERLIPIDEMIA, UNSPECIFIED Qualifiers: Hyperlipidemia type: pure hypercholesterolemia Qualified Code(s): E78.00 - Pure hypercholesterolemia, unspecified; E78.0 - Pure hypercholesterolemia (11) Hypertension Code(s): I10 - ESSENTIAL (PRIMARY) HYPERTENSION (12) S/P coronary artery stent placement Code(s): Z95.5 - PRESENCE OF CORONARY ANGIOPLASTY IMPLANT AND GRAFT
[2018-05-09] MEDS: GABAPENTIN 100 MG CAPSULE (FP) PO SCH ×2 (14:08→21:48)
[2018-05-09] MEDS: metFORMIN HCL 500 MG TABLET (FP) PO SCH (16:07)
--- NOTE | 2018-05-09 20:23 | PN ---
Progress Note (short form) - Note Progress Note: Patient lying in bed with continued complaints of low back pain. She is moving both legs with grossly full power. Awaiting Lumbar MRI to assess L1 burst fracture and L4 compression fracture previously treated with kyphoplasty. Cervical MRI obtained which demonstrates soft disc herniation at C34 and C45 with spondylosis at multiple levels including C56 and C67 to include hypertrophy of the posterior longitudinal ligament, osteophytes, disc bulges and canal stenosis. There is effacement of the ventral and dorsal CSF spaces and deformation of the contours of the Cervical spinal cord. The patient describes numbness and tingling in her hands with dropping things and loss of fine motor skills. Given her potential pulmonary metastatic disease and infected sacral/coccygeal decubitus, she is not an ideal candidate for spinal instrumentation. Hopefully the L1 fracture can heal in a brace and I would recommend TLSO (routine postop Lumbar brace from [employer]) and standing films in brace. MRI Lumbar will still be important in management. Cervical spondylosis and neck pain may be amenable to surgical intervention, however, decision making for this will need to reflect her overall medical condition and other active medical processes. Will follow.
[2018-05-10] MEDS: oxyCODONE HCL 5 MG TABLET PO PRN ×2 (01:11→09:42)
[2018-05-10] MEDS ORDERED: ALBUTEROL SO4 0.083% IH SOL 2.5 MG/3 ML VIAL.NEB. NEB ONE ×3 (01:59→10:56)
[2018-05-10] MEDS: INSULIN SLIDING SCALE (NOVOLOG) 1 VIAL SQ SCH ×4 (06:15→22:12)
[2018-05-10] MEDS: GABAPENTIN 100 MG CAPSULE (FP) PO SCH ×3 (06:15→22:08)
[2018-05-10] MEDS: metFORMIN HCL 500 MG TABLET (FP) PO SCH ×2 (06:15→16:22)
[2018-05-10 07:24] LABS: BASO % 0.8 % (0-2.0); EOS % 3.5 % (0-4.5); HEMATOCRIT 41.6 % (32.4-45.2); HEMOGLOBIN 14.1 GM/dL (10.7-15.3); LYMPH % 25.3 % (8-40); MCH 29.4 pg (25.7-33.7); MCHC 33.9 g/dl (32.0-36.0); MEAN CELL VOLUME 86.9 fl (80-96); MONO % 8.8 % (3.8-10.2); NEUT % 61.6 % (42.8-82.8); PLATELET COUNT 139 K/MM3 (134-434); RBC 4.78 M/mm3 (3.60-5.2); RDW 18.4 % (11.6-15.6); WHITE BLOOD COUNT 9.1 K/mm3 (4.0-10.0)
[2018-05-10 07:56] LABS: ALBUMIN 2.1 g/dl (3.4-5.0); ALK PHOS 232 U/L (45-117); ANION GAP 8 MMOL/L (8-16); BLOOD UREA NITROGEN 6 mg/dL (7-18); CALCIUM 8.1 mg/dL (8.5-10.1); CHLORIDE 106 mmol/L (98-107); CO2 23 mmol/L (21-32); CREATININE 0.8 mg/dL (0.55-1.3); GLUCOSE,RANDOM 206 mg/dL (74-106); POTASSIUM 3.4 mmol/L (3.5-5.1); SGOT/AST 46 U/L (15-37); SGPT/ALT 32 U/L (13-61); SODIUM 137 mmol/L (136-145)
--- NOTE | 2018-05-10 09:21 | CONSULT ---
Consult - text type - Consultation Consultation Note: Neurology HISTORY OF PRESENT ILLNESS: 77F w/ pmhx of CAD, DM, HTN, CVA (2013 w/ R residual deficits), anemia, breast cx 12/21 who was brought to the hospital by family with complaints of back pain. Per son, pt arrived from [place] day of admission. Recently, her 1 month ago after which she traveled to [place] to be with her siblings. It was noted that pt was found to have decreased motivation and ability to perform IADLs so pt was sent back [place] Pt's son received her and consequently found the pt not able to function independently. OF note, was complaining of lower back pain that has been limiting her ability to ambulate. Per notes, patient with L1 and L4 compression fx. L1 acute/subacute , L4 s/p kyphoplasty per notes. NSGY note reviewed, no acute surgical intervention thus far. Neurologically with RUE tremor noted, denies h/o Parkinson's but appears to be consistent with pill rolling. Will add Sinemet 25/ 100 tid to regiment. Recent Travel: Arrived from [place] today PAST MEDICAL HISTORY: CAD DM HTN CVA (2013) anemia breast cancer (diagnosed 12/21) PAST SURGICAL HISTORY: lumpectomy Social History: Smoking: Denies Alcohol: Former drinker Drugs: Denies Family History: Denies Allergies levofloxacin [From Levaquin] Allergy (Intermediate, Verified 05/06/18 16:50) Rash Penicillins Allergy (Verified 05/06/18 16:50) Rash sulfamethoxazole [From Bactrim] Adverse Reaction (Intermediate, Verified 16:50) dizziness, dyspepsia and nausea trimethoprim [From Bactrim] Adverse Reaction (Intermediate, Verified 05/06/18 16 :50) dizziness, dyspepsia and nausea HOME MEDICATIONS: Home Medications Medication Instructions Recorded Aspirin [ASA -] 81 mg PO DAILY 10/09/14 Albuterol Sulfate [Proventil HFA 1 - 2 inh PO Q4H PRN 07/03/15 Inhaler -] Nadolol [Corgard -] 20 mg PO DAILY tablet 09/05/17 Albuterol 0.083% Nebulizer Elizabeth 1 amp NEB PRN PRN 01/24/18 [Ventolin 0.083% Nebulizer Soln -] Amlodipine Besylate [Norvasc -] 5 mg PO DAILY 01/24/18 Escitalopram Oxalate [Lexapro -] 10 mg PO DAILY 01/24/18 Fludrocortisone Acetate [Florinef 0.1 mg PO DAILY 01/24/18 -] Fluticasone Furoate [Arnuity 100 mcg IH DAILY 01/24/18 Ellipta] Insulin Lispro [Humalog Kwikpen 100 unit SQ ASDIR 01/24/18 U-100] Losartan Potassium [Cozaar -] 25 mg PO DAILY 01/24/18 Pantoprazole Sodium [Protonix] 40 mg PO DAILY 01/24/18 Rosuvastatin [Crestor -] 20 mg PO DAILY 01/24/18 Umeclidinium Frederick [Incruse 62.5 mcg IH DAILY 01/24/18 Ellipta] Sitagliptin Phosphate [Januvia -] 100 mg PO DAILY@0700 #30 ud 02/04/18 Potassium Chloride [K-Dur -] 20 meq PO DAILY #30 tablet.er 02/05/18 Insulin (Levemir) [Levemir Vial] 12 units SQ AM #100 units 02/07/18 REVIEW OF SYSTEMS CONSTITUTIONAL: +poor appetite; -f/c, weight loss HEENT: -throat pain, rhinorrhea, ear pain, eye pain CARDIOVASCULAR: -cp, lightheadedness, peripheral edema RESPIRATORY: -cough, sob, blake, orthopnea, wheezing GASTROINTESTINAL: +abdominal pain; -distension, n/v, c/d, melena, hematochezia GENITOURINARY: -dysuria, frequency, hesitancy, hematuria, flank pain MUSCULOSKELETAL: -myalgia, neck pain ENDOCRINE: -hot flashes, -unintentional weight changes NEUROLOGIC: -milner, dizziness, seizure, mental status changes PHYSICAL EXAMINATION Vital Signs Period Temp Pulse Resp BP Sys/Donovan Pulse Ox Last 24 Hr 98 F-98.3 F 96-110 18-20 142-152/80-84 95 GENERAL: AAOx3. NAD. HEENT: AT/NC. EOMI. Dry membranes. NECK: Normal range of motion, supple without lymphadenopathy, JVD, or masses. LUNGS: CTA B/L. No wheezes, rhonchi, crackles noted. HEART: RRR. Normal S1, S2. No murmurs noted. ABDOMEN: Soft, NT/ND. No masses/bruit noted. +BS in all 4Q's. MUSCULOSKELETAL: No CVA tenderness. EXTREMITIES: No peripheral edema noted. 5/5 muscle strength in u/l b/l LE. NEUROLOGICAL: Normal speech. CN II-XII intact, RUE low amplitude tremor noted, minimal cogwheeling, strenght intact grossly, gait deferred PSYCHIATRIC: Cooperative. Good eye contact. Appropriate mood and affect. SKIN: 0.5x1cm Stage II sacral decubitus ulcer, non-draining, dry, erythematous CBCD WBC 9.1 K/mm3 (4.0-10.0) 05/10/18 06:30 RBC 4.78 M/mm3 (3.60-5.2) 05/10/18 06:30 Hgb 14.1 GM/dL (10.7-15.3) 05/10/18 06:30 Hct 41.6 % (32.4-45.2) 05/10/18 06:30 MCV 86.9 fl (80-96) 05/10/18 06:30 MCHC 33.9 g/dl (32.0-36.0) 05/10/18 06:30 RDW 18.4 % (11.6-15.6) H 05/10/18 06:30 Plt Count 139 K/MM3 (134-434) 05/10/18 06:30 MPV 8.0 fl (7.5-11.1) 05/10/18 06:30 CMP Sodium 137 mmol/L (136-145) 05/10/18 06:30 Potassium 3.4 mmol/L (3.5-5.1) L 05/10/18 06:30 Chloride 106 mmol/L (98-107) 05/10/18 06:30 Carbon Dioxide 23 mmol/L (21-32) 05/10/18 06:30 Anion Gap 8 MMOL/L (8-16) 05/10/18 06:30 BUN 6 mg/dL (7-18) L 05/10/18 06:30 Creatinine 0.8 mg/dL (0.55-1.3) 05/10/18 06:30 Creat Clearance w eGFR > 60 (>60) 05/10/18 06:30 Random Glucose 206 mg/dL (74-106) H 05/10/18 06:30 Calcium 8.1 mg/dL (8.5-10.1) L 05/10/18 06:30 Total Bilirubin 2.0 mg/dL (0.2-1) H 05/10/18 06:30 AST 46 U/L (15-37) H 05/10/18 06:30 ALT 32 U/L (13-61) 05/10/18 06:30 Alkaline Phosphatase 232 U/L (45-117) H 05/10/18 06:30 Total Protein 6.0 g/dl (6.4-8.2) L 05/10/18 06:30 Albumin 2.1 g/dl (3.4-5.0) L 05/10/18 06:30 CARDIAC ENZYMES Creatine Kinase 178 IU/L (26-192) 05/06/18 21:11 Troponin I 0.02 ng/ml (0.00-0.05) 05/06/18 21:11 ASSESSMENT/PLAN: 77F w/ pmhx of CAD, DM, HTN, CVA (2013 w/ R residual deficits), anemia, breast cx 12/21 who was brought to the hospital by family with complaints of back pain. Per son, pt arrived from [place] day of admission. Recently, her 1 month ago after which she traveled to [place] to be with her siblings. It was noted that pt was found to have decreased motivation and ability to perform IADLs so pt was sent [place] Pt's son received her and consequently found the pt not able to function independently. OF note, was complaining of lower back pain that has been limiting her ability to ambulate. Per notes, patient with L1 and L4 compression fx. L1 acute/subacute , L4 s/p kyphoplasty per notes. NSGY note reviewed, no acute surgical intervention thus far. Neurologically with RUE tremor noted, denies h/o Parkinson's but appears to be consistent with pill rolling. Less likely to be benign essential tremor. Will add Sinemet 25/100 tid to regiment. MRI C spine also completed, awaiting offical report, follow up. Continued medical optimization, ambulation as tolerated, especially with sacral decub. Likely to require placement. Fall risk. Physicial therapy as tolerated.
[2018-05-10] MEDS ORDERED: cefTRIAXone SODIUM 1 GM VIAL ONE (09:26)
[2018-05-10] MEDS: DULoxetine HCL 20 MG CAPSULE.DR (FP) PO SCH (09:38)
[2018-05-10] MEDS: POTASSIUM CHLORIDE ORAL LIQUID 20 MEQ/15 ML PO SCH (09:38)
[2018-05-10] MEDS: CEFTRIAXONE 1 GM in DEXTROSE 5%-WATER - 50 ML IVPB SCH (09:38)
[2018-05-10] MEDS: HEPARIN NA (PORCINE) 5,000 UNITS/ML 1ML VIAL SQ SCH ×2 (09:38→22:09)
[2018-05-10] MEDS ORDERED: INSULIN (NOVOLOG) ASPART 100 UNITS/ML 10ML VIAL ONE ×2 (10:35→16:16)
--- NOTE | 2018-05-10 10:46 | PN ---
Progress Note, Physician Chief Complaint: back pain Depression lactic acidosis History of Present Illness: Brought in to the [place] Lost her 1 month ago, has been declining ever since Depressed Stage 3 on coccyx area, mild purulent drainage on the dressing c/o back pain hx of MAC, ground glass appearance on CT and CXR Liver cirrhosis 2/2 to alcohol abuse? 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 Last Colonoscopy/EGD-07/03/15- several hyperplastic polyps CA 19.9 elevated, however not diagnostic SOB today, IVF stopped yesterday Seen by pulmonary - Current Medication List Current Medications: Active Medications Acetaminophen (Tylenol -) 650 mg PO Q6H PRN PRN Reason: PAIN LEVEL 4 - 6 Last Admin: 05/09/18 09:51 Dose: 650 mg Carbidopa/Levodopa (Sinemet 25/100 -) 1 each PO TID [facility] Duloxetine HCl (Cymbalta -) 20 mg PO DAILY [facility] Last Admin: 05/10/18 09:38 Dose: 20 mg Gabapentin (Neurontin -) 100 mg PO TID [facility] Last Admin: 05/10/18 06:15 Dose: 100 mg Heparin Sodium (Porcine) (Heparin -) 5,000 unit SQ BID [facility] Last Admin: 05/10/18 09:38 Dose: 5,000 unit Ceftriaxone Sodium 1 gm/ (Dextrose) 50 mls @ 100 mls/hr IVPB DAILY [facility]; Protocol Last Admin: 05/10/18 09:38 Dose: 100 mls/hr Insulin Aspart (Novolog Vial Sliding Scale -) 1 vial SQ ACHS [facility]; Protocol Last Admin: 05/10/18 06:15 Dose: Not Given Metformin HCl (Glucophage -) 500 mg PO BID@0700,1630 [facility] Last Admin: 05/10/18 06:15 Dose: 500 mg Oxycodone HCl (Roxicodone -) 5 mg PO Q6H PRN PRN Reason: PAIN LEVEL 7 - 10 Last Admin: 05/10/18 09:42 Dose: 5 mg Potassium Chloride (Potassium Chloride Oral Liquid) 40 meq PO DAILY [facility] Last Admin: 05/10/18 09:38 Dose: 40 meq - Objective Vital Signs: Vital Signs Temperature 98.0 F 05/10/18 06:00 Pulse Rate 110 H 05/10/18 06:00 Respiratory Rate 20 05/10/18 02:00 Blood Pressure 145/82 05/10/18 06:00 O2 Sat by Pulse Oximetry (%) 95 05/09/18 21:00 Constitutional: Yes: Well Nourished, Calm, Mild Distress Cardiovascular: Yes: Regular Rate and Rhythm Respiratory: Yes: Regular, On Nasal O2, Rhonchi (BLL), SOB Gastrointestinal: Yes: Normal Bowel Sounds, Soft, Abdomen, Obese, Ascites Musculoskeletal: Yes: Muscle Weakness Edema: Yes Edema: LLE: Trace, RLE: Trace Peripheral Pulses WNL: Yes Wound/Incision: Yes: Dressing Dry and Intact Neurological: Yes: Alert, Pre-Existing Deficit Psychiatric: Yes: Alert Labs: CBC, BMP 05/10/18 06:30 05/10/18 06:30 INR, PTT INR 1.25 (0.83-1.09) H 05/06/18 18:54 Problem List - Problems (1) Back pain Assessment/Plan: -2/2 to compression fracture of L1 and L4, L1-acute/subacute -has had kyphoplasty for L4 fx -NS consult -pain management -added gabapentin 100 mg po tid -Oxycodone 5 mg po Q6H PRN -Cervical spine MRI still pending -Physical therapy -Lumbar MRI pending Code(s): M54.9 - DORSALGIA, UNSPECIFIED (2) Elevated lactic acid level Assessment/Plan: -not 2/2 to sepsis -multifactorial-malignancy?DM2 Code(s): R79.89 - OTHER SPECIFIED ABNORMAL FINDINGS OF BLOOD CHEMISTRY (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 Assessment/Plan: -Pulmonary consult -is not on any maintenance abx -no acute symptoms at this time Code(s): A31.0 - PULMONARY MYCOBACTERIAL INFECTION (4) Sacral decubitus ulcer Assessment/Plan: -wound culture pending -Debridement not indicated -encouraged offloading -Allevyn dressing on the sacrum Code(s): L89.159 - PRESSURE ULCER OF SACRAL REGION, UNSPECIFIED STAGE Qualifiers: Pressure injury stage: stage 2 Qualified Code(s): L89.152 - Pressure ulcer of sacral region, stage 2 (5) Cirrhosis of liver Code(s): K74.60 - UNSPECIFIED CIRRHOSIS OF LIVER Qualifiers: Hepatic cirrhosis type: alcoholic cirrhosis Ascites presence: with ascites Qualified Code(s): K70.31 - Alcoholic cirrhosis of liver with ascites (6) Diabetes Assessment/Plan: -A1c 6.8 -Start Metformin 500 mg po bid, given her renal fxn is normal -Novolog sliding scale -BGM AC HS -Diabetic/low sodium diet Code(s): E11.9 - TYPE 2 DIABETES MELLITUS WITHOUT COMPLICATIONS Qualifiers: Diabetes mellitus type: type 2 (7) Hypokalemia Assessment/Plan: -2/2 to decreased po intake -improved -replace= KCl 40 meq PO daily -monitor trend Code(s): E87.6 - HYPOKALEMIA (8) Depression Assessment/Plan: -start cymbalta 20 mg po daily-anxiety/depression and hopefully chronic pain Code(s): F32.9 - MAJOR DEPRESSIVE DISORDER, SINGLE EPISODE, UNSPECIFIED (9) Tremor Assessment/Plan: -Seen by neurology -started on Sinemet Code(s): R25.1 - TREMOR, UNSPECIFIED (10) Shortness of breath Assessment/Plan: -fluid overload? -CXR stat -Bronchodilators+ pulmicort added -Furosemide 40 mg IVP Code(s): R06.02 - SHORTNESS OF BREATH Assessment/Plan see problem list physical therapy
[2018-05-10] MEDS ORDERED: oxyCODONE HCL 5 MG TABLET PO PRN (10:54)
[2018-05-10] MEDS: FUROSEMIDE 40 MG/4 ML INJECTABLE VIAL IVPUSH SCH (11:08)
--- NOTE | 2018-05-10 12:08 | PN ---
Progress Note (short form) - Note Progress Note: PULMONARY More short of breath today. Given lasix. Vital Signs Period Temp Pulse Resp BP Sys/Donovan Pulse Ox Last 24 Hr 98 F-98.3 F 96-110 18-20 142-152/80-84 95 Gen: mildly tachypneic at rest Heart: RRR Lung: scattered rhonchi Abd: soft, nontender Ext: no edema CBC, BMP 05/10/18 06:30 05/10/18 06:30 Active Medications Acetaminophen (Tylenol -) 650 mg PO Q6H PRN PRN Reason: PAIN LEVEL 4 - 6 Last Admin: 05/09/18 09:51 Dose: 650 mg Albuterol/Ipratropium (Duoneb -) 1 amp NEB RQ4H [place] Budesonide (Pulmicort 0.5 Mg Nebulizer -) 1 amp NEB RBID [facility] Carbidopa/Levodopa (Sinemet 25/100 -) 1 each PO TID [facility] Duloxetine HCl (Cymbalta -) 20 mg PO DAILY [facility] Last Admin: 05/10/18 09:38 Dose: 20 mg Furosemide (Lasix Injection -) 40 mg IVPUSH DAILY [facility] Last Admin: 05/10/18 11:08 Dose: 40 mg Gabapentin (Neurontin -) 100 mg PO TID [facility] Last Admin: 05/10/18 06:15 Dose: 100 mg Heparin Sodium (Porcine) (Heparin -) 5,000 unit SQ BID [facility] Last Admin: 05/10/18 09:38 Dose: 5,000 unit Ceftriaxone Sodium 1 gm/ (Dextrose) 50 mls @ 100 mls/hr IVPB DAILY [facility]; Protocol Last Admin: 05/10/18 09:38 Dose: 100 mls/hr Insulin Aspart (Novolog Vial Sliding Scale -) 1 vial SQ ACHS [facility]; Protocol Last Admin: 05/10/18 10:47 Dose: 2 unit Metformin HCl (Glucophage -) 500 mg PO BID@0700,1630 [facility] Last Admin: 05/10/18 06:15 Dose: 500 mg Oxycodone HCl (Roxicodone -) 5 mg PO Q4H PRN PRN Reason: PAIN LEVEL 7 - 10 Potassium Chloride (Potassium Chloride Oral Liquid) 40 meq PO DAILY [facility] Last Admin: 05/10/18 09:38 Dose: 40 meq A/P UTI r/o Pneumonia Interstitial Lung Disease CAD h/o CVA h/o Breast Ca - agree with lasix trial - CXR - O2 to keep spO2 >90% - inhaled bronchodilators - if CXR significantly different, consider CT chest noncontrast - DVT prophylaxis
[2018-05-10] MEDS: ALBUTEROL SO4 2.5/IPRATROPIUM 0.5 INH SOL 3 ML VIAL.NEB. NEB SCH ×3 (12:15→20:30)
[2018-05-10] MEDS: CARBIDOPA/LEVODOPA 25/100 TABLET (FP) PO SCH ×2 (14:07→22:08)
--- NOTE | 2018-05-10 14:32 | PN ---
Progress Note (short form) - Note Progress Note: awake and alert feels better less hip pain Vital Signs Period Temp Pulse Resp BP Sys/Donovan Pulse Ox Last 24 Hr 98 F-98.2 F 96-110 18-20 142-146/81-84 95 cor-rrr lungs decreased bs at bases abd soft,nt ext no edema superficial sacral ulcer- clean no drainage or erythema CBC, BMP 05/10/18 06:30 05/10/18 06:30 Microbiology 05/08/18 03:15 Ulcer Gram Stain - Final 05/08/18 03:15 Ulcer Wound Culture - Final Yeast Like Organism 05/06/18 18:31 Blood - Peripheral Venous Blood Culture - Preliminary NO GROWTH OBTAINED AFTER 72 HOURS, INCUBATION TO CONTINUE FOR 2 DAYS. 05/06/18 18:31 Blood - Peripheral Venous Blood Culture - Preliminary NO GROWTH OBTAINED AFTER 72 HOURS, INCUBATION TO CONTINUE FOR 2 DAYS. 05/07/18 01:09 Urine - Urine - Catheterized Urine Culture - Final Contaminated: Please Repeat a/p no signs sepsis- would d/c rocephin consider chest ct in 2016 she had w/u of abnormal chest ct- quantiferon was negative and sputum grew MAC she was treated for pulmonary MAC by Dr Petersen sacral ulcer is superficial and not infected no signs sepsis other then elevated lactic acid etiology of her liver cirrhosis is unclear as well multiple antibiotic allergies noted Problem List - Problems (1) Elevated lactic acid level Code(s): R79.89 - OTHER SPECIFIED ABNORMAL FINDINGS OF BLOOD CHEMISTRY (2) Sacral ulcer Code(s): L98.429 - NON-PRESSURE CHRONIC ULCER OF BACK WITH UNSPECIFIED SEVERITY (3) Cirrhosis of liver Code(s): K74.60 - UNSPECIFIED CIRRHOSIS OF LIVER Qualifiers: Hepatic cirrhosis type: alcoholic cirrhosis Ascites presence: with ascites Qualified Code(s): K70.31 - Alcoholic cirrhosis of liver with ascites (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
--- NOTE | 2018-05-10 15:24 | CONSULT ---
Consult Consult Specialty:: HEMATOLOGY-ONCOLOGY Referred by:: Rajani Schulte NP Reason for Consultation:: hx of breast ca - History of Present Illness Chief Complaint: immobility, lower back pain History of Present Illness: 77 yr old Austrian-speaking woman with hx of breast cancer(dx'd in 2014) hx of CVA, DMII, hypoNa, hx of variceal bleed, ascitis, hx of colon polyps, hx of MAC txment, presents with lower back pain, decr appetite and decr mobility for past month. brought in by family for further evaluation. pt c/o lower back and sacral pain. a/w nausea denies sob, chest pain, abdominal pain, vomiting, diarrhea, constipation, fevers , weight loss, visual changes, trauma, LE edema. feels that her abdomen has been the same girth. 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 poor prep in past.), Stent (cardiac), Tonsillectomy, Upper Endoscopy (h/o esoph varices. on nadalol. s/p banding. due to surveillance egd in 04/10/15) - Alcohol/Substance Use Hx Alcohol Use: Yes (occasional beer) History of Substance Use: reports: None - Smoking History Smoking history: Former smoker Have you smoked in the past 12 months: No Aproximately how many cigarettes per day: 0 If you are a former smoker, when did you quit?: over 30 years ago - Social History Usual Living Arrangement: Alone ADL: Independent History of Recent Travel: Yes Home Medications - Allergies Allergies/Adverse Reactions: Allergies Allergy/AdvReac Type Severity Reaction Status Date / Time levofloxacin [From Levaquin] Allergy Intermediate Rash Verified 05/06/18 16:50 Penicillins Allergy Rash Verified 05/06/18 16:50 sulfamethoxazole AdvReac Intermediate Verified 05/06/18 16:50 [From Bactrim] trimethoprim [From Bactrim] AdvReac Intermediate Verified 05/06/18 16:50 - Home Medications Home Medications: Ambulatory Orders Aspirin [ASA -] 81 mg PO DAILY 10/09/14 Albuterol Sulfate [Proventil HFA Inhaler -] 1 - 2 inh PO Q4H PRN 07/03/15 Nadolol [Corgard -] 20 mg PO DAILY tablet 09/05/17 Amlodipine Besylate [Norvasc -] 5 mg PO DAILY 01/24/18 Escitalopram Oxalate [Lexapro -] 10 mg PO DAILY 01/24/18 Fludrocortisone Acetate [Florinef -] 0.1 mg PO DAILY 01/24/18 Fluticasone Furoate [Arnuity Ellipta] 100 mcg IH DAILY 01/24/18 Pantoprazole Sodium [Protonix] 40 mg PO DAILY 01/24/18 Umeclidinium Corral [Incruse Ellipta] 62.5 mcg IH DAILY 01/24/18 Atorvastatin Calcium [Lipitor] 10 mg PO DAILY 05/07/18 Humalog Kwikpen U-100 2 - 12 units SQ ASDIR PRN 05/07/18 Insulin (Levemir) [Levemir Vial] 50 units SQ ACDIN 05/07/18 Nortriptyline HCl [Pamelor -] 25 mg PO DAILY 05/07/18 Valsartan/Hydrochlorothiazide [Diovan Hct 320-12.5 mg Tab] 1 each PO 05/07/18 Family Disease History - Family Disease History Family Disease History: Diabetes: Brother (4 brothers), Other: Father ( 80's: unclear cancer), Mother ( 90's, unclear cause), Brother, Sister ( 7 sisters), Son (3, 1 : does not recall cause), Daughter (3) Physical Exam Vital Signs: Vital Signs Temperature 98.4 F 05/10/18 14:00 Pulse Rate 129 H 05/10/18 14:00 Respiratory Rate 20 05/10/18 14:00 Blood Pressure 146/86 05/10/18 14:00 O2 Sat by Pulse Oximetry (%) 95 05/10/18 08:00 Labs: CBC, BMP 05/10/18 06:30 05/10/18 06:30 Assessment/Plan 77 yr old woman with multiple co-morbidities presents with lower back pain and decreased mobility found to have sacral decubitis ulcer Stage III. A/P no f/u notes in outpatient clinic, unclear why pt was not started on hormonal therapy for breast biopsy findings if surgical intervention for lumbar fracture is attempted, would recommend biopsy to evaluate for metastatic lesions, defer surgical intervention for 5- 7days off ASA await MRI Lumbar spine for further evaluation, osteolytic vs metastatic fracture if mobility improves, will likely need bone scan and mammogram as outpatient for mets, possible rebiopsy and bone density scan prior to initiation of any treatment also found to have ascitis, if paracentesis is attempted, please send for cytological evaluation. DVT prophylaxis
--- NOTE | 2018-05-10 17:14 | PN ---
Progress Note (short form) - Note Progress Note: Vascular Surgery Stage 3 sacral ulcer. 2x2 cm with area of slough centrally. Start santyl to area daily. offload area please. Reuben Milian DO
--- NOTE | 2018-05-10 17:33 | PN ---
Progress Note (short form) - Note Progress Note: Patient lying in bed complaining of back and neck pains. 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 Patient may benefit from Anterior Cervical Decompression and Fusion (likely C34 ACDF and C5 & C6 Corpectomies with anglican of lordosis and reconstruction using PEEK cages and anterior plating). I discussed this with the patient and plan to speak with her son to review the risks, benefits and alternatives to surgery in detail. MRI Lumbar still pending.
[2018-05-10] MEDS: COLLAGENASE CLOSTRIDIUM HIST. 30 GRAMS TUBE TP SCH (18:15)
--- NOTE | 2018-05-10 18:43 | RAPID ---
Physical Examination Vital Signs: Vital Signs Temperature 98.4 F 05/10/18 14:00 Pulse Rate 129 H 05/10/18 14:00 Respiratory Rate 20 05/10/18 14:00 Blood Pressure 146/86 05/10/18 14:00 O2 Sat by Pulse Oximetry (%) 95 05/10/18 08:00 Labs: CBC, BMP 05/10/18 06:30 05/10/18 06:30 Rapid Response - Rapid Response Assessment: Rapid response called on unit. Per nurse, vitals were taken and patient was seen tachy at 139. Upon initial exam, pt denied chest pain, sob, abd pain, difficulty breathing. Pt is Grenadian speaking and able to respond to commands and answer questions. VS: 149/81 HR 139 97% RA PE: Comfortable, NAD. Alert and oriented. CTA B/L tachycardic. Normal S1, S2. No murmurs noted. No reproducible chest tenderness. Abd soft, NT/ND. Responds to commands. A/P: -hold metformin and oxycodone -continued home meds: Nadolol, Losartan, Amlodipine -EKG done showed sinus tachycardia, no evidence of ischemic changes -trops ordered -transfer orders for telemetry -repeat EKG in AM -Echo deferred for now as previously done 08/24 -CXR done earlier today showed chronic lung dz with superimposed infiltrate. Pt already received Rocephin today. -will follow up labs and sign out to night team
[2018-05-10] MEDS: LOSARTAN POTASSIUM 25 MG TABLET PO SCH (18:54)
[2018-05-10] MEDS: NADOLOL 20 MG TABLET (FP) PO SCH (18:54)
[2018-05-10] MEDS: BUDESONIDE 0.5 MG/2 ML INH SUSP VIAL NEB SCH (20:30)
[2018-05-10] MEDS ORDERED: PT OWN MED DRAWER 7, Y5N ONE (21:20)
[2018-05-11] MEDS: ALBUTEROL SO4 2.5/IPRATROPIUM 0.5 INH SOL 3 ML VIAL.NEB. NEB SCH ×6 (00:05→20:53)
[2018-05-11 07:00] LABS: BASO % 0.7 % (0-2.0); EOS % 3.8 % (0-4.5); HEMATOCRIT 39.6 % (32.4-45.2); HEMOGLOBIN 13.3 GM/dL (10.7-15.3); LYMPH % 27.4 % (8-40); MCH 29.3 pg (25.7-33.7); MCHC 33.6 g/dl (32.0-36.0); MEAN CELL VOLUME 87.1 fl (80-96); MEAN PLT VOLUME 8.2 fl (7.5-11.1); MONO % 9.7 % (3.8-10.2); NEUT % 58.4 % (42.8-82.8); PLATELET COUNT 139 K/MM3 (134-434); RBC 4.54 M/mm3 (3.60-5.2); RDW 18.1 % (11.6-15.6); WHITE BLOOD COUNT 9.8 K/mm3 (4.0-10.0)
[2018-05-11] MEDS: CARBIDOPA/LEVODOPA 25/100 TABLET (FP) PO SCH ×3 (07:04→21:06)
[2018-05-11] MEDS: INSULIN SLIDING SCALE (NOVOLOG) 1 VIAL SQ SCH ×4 (07:04→21:06)
[2018-05-11] MEDS: GABAPENTIN 100 MG CAPSULE (FP) PO SCH ×3 (07:04→21:06)
[2018-05-11 07:26] LABS: ALK PHOS 216 U/L (45-117); ANION GAP 7 MMOL/L (8-16); BILIRUBIN,TOTAL 1.6 mg/dL (0.2-1); BLOOD UREA NITROGEN 6 mg/dL (7-18); CALCIUM 8.5 mg/dL (8.5-10.1); CHLORIDE 104 mmol/L (98-107); CO2 28 mmol/L (21-32); CREATININE 0.7 mg/dL (0.55-1.3); GLUCOSE,RANDOM 143 mg/dL (74-106); POTASSIUM 3.4 mmol/L (3.5-5.1); SGOT/AST 46 U/L (15-37); SGPT/ALT 10 U/L (13-61); SODIUM 139 mmol/L (136-145); TOT PROT 5.7 g/dl (6.4-8.2)
[2018-05-11] MEDS: BUDESONIDE 0.5 MG/2 ML INH SUSP VIAL NEB SCH ×2 (08:18→20:52)
--- NOTE | 2018-05-11 08:24 | PN ---
Teaching Attending Note Name of Resident: Kayley Simms ATTENDING PHYSICIAN STATEMENT I saw and evaluated the patient. I reviewed the resident's note and discussed the case with the resident. I agree with the resident's findings and plan as documented. SUBJECTIVE:Patient seen and examined Presents with compression fracture of lumbar spine , immobility , with decubitus . 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 Current problems directed tow lower back compression and pain. MRI of lumbar spine pending N.S note seen Has been on ASA therapy and if surgery is to be performed would delay at least 5-7 days. Seen by wound care and therapy acted. Need to be certain that compression is osteoporotic rather than pathologic. Bone scan and mammogram in future . Would vertebroplasty be of benefit for lumbar compression? I.R. and N.S. input pending MRI. Last Vital Signs Temp Pulse Resp BP Pulse Ox 97.9 F 94 H 18 111/71 98 05/11/18 06:00 05/11/18 06:00 05/11/18 06:00 05/11/18 06:00 05/10/18 21:00 HEENT: RAJI, EOM Intact, right ptosis Oropharynx: No thrush, No mucositis Nodes: Without adenopathy Breasts: Without masses; left breast scar 3:00 Cor: RSR, No murmurs, No gallops Lungs: Clear to P&A Abd: Soft, Normal bowel sounds, No organomegaly Ext:No significant edema Skin: decubitus dressed sacrum CBC, BMP 05/11/18 05:30 05/11/18 06:00 Current Medications Generic Name Dose Route Start Last Admin Trade Name Freq PRN Reason Stop Dose Admin Acetaminophen 650 mg 05/08/18 12:02 05/09/18 09:51 Tylenol - PO 650 mg Q6H PRN Administration PAIN LEVEL 4 - 6 Albuterol/Ipratropium 1 amp 05/10/18 12:00 05/11/18 07:56 Duoneb - NEB 1 amp RQ4H [facility] Administration Amlodipine Besylate 5 mg 05/11/18 10:00 Norvasc - PO DAILY [facility] Budesonide 1 amp 05/10/18 20:00 05/11/18 08:18 Pulmicort 0.5 Mg Nebulizer - NEB 1 amp RBID [facility] Administration Carbidopa/Levodopa 1 each 05/10/18 14:00 05/11/18 07:04 Sinemet 25/100 - PO 1 each TID [facility] Administration Collagenase 1 applic 05/10/18 17:30 05/10/18 18:15 Santyl - TP Not Given DAILY [facility] Protocol Furosemide 40 mg 05/10/18 11:15 05/10/18 11:08 Lasix Injection - IVPUSH 40 mg DAILY [facility] Administration Gabapentin 100 mg 05/09/18 14:00 05/11/18 07:04 Neurontin - PO 100 mg TID [facility] Administration Heparin Sodium (Porcine) 5,000 unit 05/08/18 22:00 05/10/18 22:09 Heparin - SQ 5,000 unit BID [facility] Administration Insulin Aspart 1 vial 05/07/18 07:00 05/11/18 07:04 Novolog Vial Sliding Scale - SQ Not Given ACHS [facility] Protocol Losartan Potassium 25 mg 05/10/18 17:55 05/10/18 18:54 Cozaar - PO 25 mg DAILY [facility] Administration Nadolol 20 mg 05/10/18 18:00 05/10/18 18:54 Corgard - PO 20 mg DAILY [facility] Administration Potassium Chloride 40 meq 05/09/18 10:00 05/10/18 09:38 Potassium Chloride Oral Liquid PO 40 meq DAILY [facility] Administration Impression: Compression lumbar spine - await MRI re further management decisions. Mammogrma and bone scan in future when feasible. OBJECTIVE: ASSESSMENT AND PLAN:
--- NOTE | 2018-05-11 08:57 | PN ---
Progress Note (short form) - Note Progress Note: Neurology HISTORY OF PRESENT ILLNESS: 77F w/ pmhx of CAD, DM, HTN, CVA (2013 w/ R residual deficits), anemia, breast cx 12/21 who was brought to the hospital by family with complaints of back pain. Per son, pt arrived from [place] day of admission. Recently, her 1 month ago after which she traveled to [place] to be with her siblings. It was noted that pt was found to have decreased motivation and ability to perform IADLs so pt was sent [place] Pt's son received her and consequently found the pt not able to function independently. OF note, was complaining of lower back pain that has been limiting her ability to ambulate. Per notes, patient with L1 and L4 compression fx. L1 acute/subacute , L4 s/p kyphoplasty per notes. MRI C spine compelted and with bulge/herniation , slight impingement at C3/C4, NSGY note reviewed, considering ACDF. MRI L spine pending. Neurologically with RUE tremor noted, denied h/o Parkinson's but appeared to be consistent with pill rolling. Added Sinemet 25/100 tid to regiment, tremor still visible, slightly reduced, will need more time to evaluate medication. Allergies levofloxacin [From Levaquin] Allergy (Intermediate, Verified 05/06/18 16:50) Rash Penicillins Allergy (Verified 05/06/18 16:50) Rash sulfamethoxazole [From Bactrim] Adverse Reaction (Intermediate, Verified 16:50) dizziness, dyspepsia and nausea trimethoprim [From Bactrim] Adverse Reaction (Intermediate, Verified 05/06/18 16 :50) dizziness, dyspepsia and nausea Active Medications Acetaminophen (Tylenol -) 650 mg PO Q6H PRN PRN Reason: PAIN LEVEL 4 - 6 Last Admin: 05/09/18 09:51 Dose: 650 mg Albuterol/Ipratropium (Duoneb -) 1 amp NEB RQ4H [facility] Last Admin: 05/11/18 07:56 Dose: 1 amp Amlodipine Besylate (Norvasc -) 5 mg PO DAILY [facility] Budesonide (Pulmicort 0.5 Mg Nebulizer -) 1 amp NEB RBID [facility] Last Admin: 05/11/18 08:18 Dose: 1 amp Carbidopa/Levodopa (Sinemet 25/100 -) 1 each PO TID [facility] Last Admin: 05/11/18 07:04 Dose: 1 each Collagenase (Santyl -) 1 applic TP DAILY [facility]; Protocol Last Admin: 05/10/18 18:15 Dose: Not Given Furosemide (Lasix Injection -) 40 mg IVPUSH DAILY [facility] Last Admin: 05/10/18 11:08 Dose: 40 mg Gabapentin (Neurontin -) 100 mg PO TID [facility] Last Admin: 05/11/18 07:04 Dose: 100 mg Heparin Sodium (Porcine) (Heparin -) 5,000 unit SQ BID [facility] Last Admin: 05/10/18 22:09 Dose: 5,000 unit Insulin Aspart (Novolog Vial Sliding Scale -) 1 vial SQ ACHS [facility]; Protocol Last Admin: 05/11/18 07:04 Dose: Not Given Losartan Potassium (Cozaar -) 25 mg PO DAILY [facility] Last Admin: 05/10/18 18:54 Dose: 25 mg Nadolol (Corgard -) 20 mg PO DAILY [facility] Last Admin: 05/10/18 18:54 Dose: 20 mg Potassium Chloride (Potassium Chloride Oral Liquid) 40 meq PO DAILY [facility] Last Admin: 05/10/18 09:38 Dose: 40 meq PHYSICAL EXAMINATION Vital Signs Period Temp Pulse Resp BP Sys/Donovan Pulse Ox Last 24 Hr 97.9 F-98.4 F 94-135 18-20 111-151/67-86 98 GENERAL: AAOx3. NAD. HEENT: AT/NC. EOMI. Dry membranes. NECK: Normal range of motion, supple without lymphadenopathy, JVD, or masses. LUNGS: CTA B/L. No wheezes, rhonchi, crackles noted. HEART: RRR. Normal S1, S2. No murmurs noted. ABDOMEN: Soft, NT/ND. No masses/bruit noted. +BS in all 4Q's. MUSCULOSKELETAL: No CVA tenderness. EXTREMITIES: No peripheral edema noted. 5/5 muscle strength in u/l b/l LE. NEUROLOGICAL: Normal speech. CN II-XII intact, RUE low amplitude tremor noted, minimal cogwheeling, strenght intact grossly, gait deferred PSYCHIATRIC: Cooperative. Good eye contact. Appropriate mood and affect. SKIN: 0.5x1cm Stage II sacral decubitus ulcer, non-draining, dry, erythematous CBCD WBC 9.8 K/mm3 (4.0-10.0) 05/11/18 05:30 RBC 4.54 M/mm3 (3.60-5.2) 05/11/18 05:30 Hgb 13.3 GM/dL (10.7-15.3) 05/11/18 05:30 Hct 39.6 % (32.4-45.2) 05/11/18 05:30 MCV 87.1 fl (80-96) 05/11/18 05:30 MCHC 33.6 g/dl (32.0-36.0) 05/11/18 05:30 RDW 18.1 % (11.6-15.6) H 05/11/18 05:30 Plt Count 139 K/MM3 (134-434) 05/11/18 05:30 MPV 8.2 fl (7.5-11.1) 05/11/18 05:30 CMP Sodium 139 mmol/L (136-145) 05/11/18 06:00 Potassium 3.4 mmol/L (3.5-5.1) L 05/11/18 06:00 Chloride 104 mmol/L (98-107) 05/11/18 06:00 Carbon Dioxide 28 mmol/L (21-32) 05/11/18 06:00 Anion Gap 7 MMOL/L (8-16) L 05/11/18 06:00 BUN 6 mg/dL (7-18) L 05/11/18 06:00 Creatinine 0.7 mg/dL (0.55-1.3) 05/11/18 06:00 Creat Clearance w eGFR > 60 (>60) 05/11/18 06:00 Random Glucose 143 mg/dL (74-106) H 05/11/18 06:00 Calcium 8.5 mg/dL (8.5-10.1) 05/11/18 06:00 Total Bilirubin 1.6 mg/dL (0.2-1) H 05/11/18 06:00 AST 46 U/L (15-37) H 05/11/18 06:00 ALT 10 U/L (13-61) L 05/11/18 06:00 Alkaline Phosphatase 216 U/L (45-117) H 05/11/18 06:00 Total Protein 5.7 g/dl (6.4-8.2) L 05/11/18 06:00 Albumin 2.0 g/dl (3.4-5.0) L 05/11/18 06:00 CARDIAC ENZYMES Creatine Kinase 178 IU/L (26-192) 05/06/18 21:11 Troponin I 0.03 ng/ml (0.00-0.05) 05/11/18 03:15 ASSESSMENT/PLAN: 77F w/ pmhx of CAD, DM, HTN, CVA (2013 w/ R residual deficits), anemia, breast cx 12/21 who was brought to the hospital by family with complaints of back pain. Per son, pt arrived from [place] day of admission. Recently, her 1 month ago after which she traveled to [place] to be with her siblings. It was noted that pt was found to have decreased motivation and ability to perform IADLs so pt was [place] Pt's son received her and consequently found the pt not able to function independently. OF note, was complaining of lower back pain that has been limiting her ability to ambulate. Per notes, patient with L1 and L4 compression fx. L1 acute/subacute , L4 s/p kyphoplasty per notes. MRI C spine compelted and with bulge/herniation , slight impingement at C3/C4, NSGY note reviewed, considering ACDF. MRI L spine pending. Neurologically with RUE tremor noted, denies h/o Parkinson's but appears to be consistent with pill rolling. Less likely to be benign essential tremor. Will add Sinemet 25/100 tid to regiment. Neurologically with RUE tremor noted, denied h/o Parkinson's but appeared to be consistent with pill rolling. Added Sinemet 25/100 tid to regiment, tremor still visible, slightly reduced, will need more time to evaluate medication. Continued medical optimization, ambulation as tolerated, especially with sacral decub. Likely to require placement. Fall risk. Physicial therapy as tolerated. DVT ppx
[2018-05-11] MEDS ORDERED: POTASSIUM CHLORIDE TABS 10 MEQ TABLET.ER (FP) PO ONE (10:08)
--- NOTE | 2018-05-11 10:13 | PN ---
Progress Note, Physician Chief Complaint: AWAKE ALERT WEAK/TIRED EVENTS AND NOTES REVIEWED - Current Medication List Current Medications: Active Medications Acetaminophen (Tylenol -) 650 mg PO Q6H PRN PRN Reason: PAIN LEVEL 4 - 6 Last Admin: 05/09/18 09:51 Dose: 650 mg Albuterol/Ipratropium (Duoneb -) 1 amp NEB RQ4H [facility] Last Admin: 05/11/18 07:56 Dose: 1 amp Amlodipine Besylate (Norvasc -) 5 mg PO DAILY [facility] Budesonide (Pulmicort 0.5 Mg Nebulizer -) 1 amp NEB RBID [facility] Last Admin: 05/11/18 08:18 Dose: 1 amp Carbidopa/Levodopa (Sinemet 25/100 -) 1 each PO TID [facility] Last Admin: 05/11/18 07:04 Dose: 1 each Collagenase (Santyl -) 1 applic TP DAILY [facility]; Protocol Last Admin: 05/10/18 18:15 Dose: Not Given Furosemide (Lasix Injection -) 40 mg IVPUSH DAILY [facility] Last Admin: 05/10/18 11:08 Dose: 40 mg Gabapentin (Neurontin -) 100 mg PO TID [facility] Last Admin: 05/11/18 07:04 Dose: 100 mg Heparin Sodium (Porcine) (Heparin -) 5,000 unit SQ BID [facility] Last Admin: 05/10/18 22:09 Dose: 5,000 unit Insulin Aspart (Novolog Vial Sliding Scale -) 1 vial SQ ACHS [facility]; Protocol Last Admin: 05/11/18 07:04 Dose: Not Given Losartan Potassium (Cozaar -) 25 mg PO DAILY [facility] Last Admin: 05/10/18 18:54 Dose: 25 mg Nadolol (Corgard -) 20 mg PO DAILY [facility] Last Admin: 05/10/18 18:54 Dose: 20 mg Potassium Chloride (Potassium Chloride Oral Liquid) 40 meq PO DAILY [facility] Last Admin: 05/10/18 09:38 Dose: 40 meq Potassium Chloride (K-Dur -) 10 meq PO ONCE ONE Stop: 05/11/18 10:09 - Objective Vital Signs: Vital Signs Temperature 97.9 F 05/11/18 06:00 Pulse Rate 92 H 05/11/18 09:51 Respiratory Rate 18 05/11/18 09:51 Blood Pressure 127/75 05/11/18 09:51 O2 Sat by Pulse Oximetry (%) 98 05/11/18 09:00 Constitutional: Yes: Mild Distress Eyes: Yes: WNL HENT: Yes: WNL Neck: Yes: WNL Cardiovascular: Yes: Regular Rate and Rhythm Respiratory: Yes: CTA Bilaterally Gastrointestinal: Yes: Soft Genitourinary: Yes: Other Musculoskeletal: Yes: Back Pain, Muscle Weakness Extremities: Yes: Other Edema: No Integumentary: Yes: WNL Wound/Incision: Yes: Clean/Dry Neurological: Yes: Pre-Existing Deficit, Weakness ...Motor Strength: LLE, RLE Psychiatric: Yes: Other Labs: CBC, BMP 05/11/18 05:30 05/11/18 06:00 INR, PTT INR 1.25 (0.83-1.09) H 05/06/18 18:54 Problem List - Problems (1) Back pain Code(s): M54.9 - DORSALGIA, UNSPECIFIED (2) Electrolyte abnormality Code(s): E87.8 - OTH DISORDERS OF ELECTROLYTE AND FLUID BALANCE, NEC (3) Failure to thrive Code(s): SDC3307 - Qualifiers: Failure to thrive age range: in adult Qualified Code(s): R62.7 - Adult failure to thrive (4) Type 2 diabetes mellitus with diabetic neuropathic arthropathy Code(s): E11.610 - TYPE 2 DIABETES MELLITUS W DIABETIC NEUROPATHIC ARTHROPATHY Assessment/Plan CERVICAL VERTEBRAL COMPRESSION FX NEUROSURGERY EVAL WILL WEIGH BENEFITS VS RISK FOR SURGERY KCL CORRECTED PAIN CONTROL PT EVAL SNF
[2018-05-11] MEDS: FUROSEMIDE 40 MG/4 ML INJECTABLE VIAL IVPUSH SCH (10:55)
[2018-05-11] MEDS: LOSARTAN POTASSIUM 25 MG TABLET PO SCH (10:55)
[2018-05-11] MEDS: POTASSIUM CHLORIDE ORAL LIQUID 20 MEQ/15 ML PO SCH (10:55)
[2018-05-11] MEDS: NADOLOL 20 MG TABLET (FP) PO SCH (10:55)
[2018-05-11] MEDS: amLODIPine BESYLATE 5 MG TABLET (FP) PO SCH (10:55)
[2018-05-11] MEDS: COLLAGENASE CLOSTRIDIUM HIST. 30 GRAMS TUBE TP SCH (10:56)
[2018-05-11] MEDS: HEPARIN NA (PORCINE) 5,000 UNITS/ML 1ML VIAL SQ SCH ×2 (10:56→21:06)
--- NOTE | 2018-05-11 12:20 | PN ---
Progress Note (short form) - Note Progress Note: PULMONARY Breathing about the same. c/o back pain. Vital Signs Period Temp Pulse Resp BP Sys/Donovan Pulse Ox Last 24 Hr 97.9 F-98.4 F 92-135 18-20 111-151/67-86 98-98 Gen: mildly tachypneic at rest Heart: RRR Lung: scattered rhonchi Abd: soft, nontender Ext: no edema CBC, BMP 05/11/18 05:30 05/11/18 06:00 Active Medications Acetaminophen (Tylenol -) 650 mg PO Q6H PRN PRN Reason: PAIN LEVEL 4 - 6 Last Admin: 05/09/18 09:51 Dose: 650 mg Albuterol/Ipratropium (Duoneb -) 1 amp NEB RQ4H [facility] Last Admin: 05/11/18 11:31 Dose: 1 amp Amlodipine Besylate (Norvasc -) 5 mg PO DAILY [facility] Last Admin: 05/11/18 10:55 Dose: 5 mg Budesonide (Pulmicort 0.5 Mg Nebulizer -) 1 amp NEB RBID [facility] Last Admin: 05/11/18 08:18 Dose: 1 amp Carbidopa/Levodopa (Sinemet 25/100 -) 1 each PO TID [facility] Last Admin: 05/11/18 07:04 Dose: 1 each Collagenase (Santyl -) 1 applic TP DAILY [facility]; Protocol Last Admin: 05/11/18 10:56 Dose: 1 applic Furosemide (Lasix Injection -) 40 mg IVPUSH DAILY [facility] Last Admin: 05/11/18 10:55 Dose: 40 mg Gabapentin (Neurontin -) 100 mg PO TID [facility] Last Admin: 05/11/18 07:04 Dose: 100 mg Heparin Sodium (Porcine) (Heparin -) 5,000 unit SQ BID [facility] Last Admin: 05/11/18 10:56 Dose: 5,000 unit Insulin Aspart (Novolog Vial Sliding Scale -) 1 vial SQ ACHS [facility]; Protocol Last Admin: 05/11/18 10:57 Dose: 2 unit Losartan Potassium (Cozaar -) 25 mg PO DAILY [facility] Last Admin: 05/11/18 10:55 Dose: 25 mg Nadolol (Corgard -) 20 mg PO DAILY [facility] Last Admin: 05/11/18 10:55 Dose: 20 mg Potassium Chloride (Potassium Chloride Oral Liquid) 40 meq PO DAILY [facility] Last Admin: 05/11/18 10:55 Dose: 40 meq A/P UTI r/o Pneumonia Interstitial Lung Disease CAD h/o CVA h/o Breast Ca - continue lasix - monitor urine output, creatinine - O2 to keep spO2 >90% - inhaled bronchodilators - DVT prophylaxis
--- NOTE | 2018-05-11 12:46 | PN ---
GI Progress Note Subjective: Complains of back pain No abdominal pain - Objective Vital Signs: Vital Signs Temperature 97.9 F 05/11/18 06:00 Pulse Rate 92 H 05/11/18 09:51 Respiratory Rate 18 05/11/18 09:51 Blood Pressure 127/75 05/11/18 09:51 O2 Sat by Pulse Oximetry (%) 98 05/11/18 09:00 Constitutional: Calm Eyes: No: Sclera Icterus Cardiovascular: Yes: Regular Rate and Rhythm Respiratory: Yes: Diminished (at bases bilaterally), Rhonchi (scattered b/l) Gastrointestinal Inspection: Yes: Distention (midly protuberant abdomen) ...Auscultate: Yes: Normoactive Bowel Sounds ...Palpate: No: Hepatomegaly, Splenomegaly, Tenderness ...Percussion: No: Tympanitic Edema: No (No LE edema) Neurological: Yes: Alert Labs: CBC, BMP 05/11/18 05:30 05/11/18 06:00 INR, PTT INR 1.25 (0.83-1.09) H 05/06/18 18:54 Hepatic Panel Total Bilirubin 1.6 mg/dL (0.2-1) H 05/11/18 06:00 AST 46 U/L (15-37) H 05/11/18 06:00 ALT 10 U/L (13-61) L 05/11/18 06:00 Alkaline Phosphatase 216 U/L (45-117) H 05/11/18 06:00 Albumin 2.0 g/dl (3.4-5.0) L 05/11/18 06:00 Problem List - Problems (1) Cirrhosis of liver Assessment/Plan: Plan as per initial consult MRCP when patient able Management of volume status per PMD Recall when MRCP completed Code(s): K74.60 - UNSPECIFIED CIRRHOSIS OF LIVER Qualifiers: Hepatic cirrhosis type: alcoholic cirrhosis Ascites presence: with ascites Qualified Code(s): K70.31 - Alcoholic cirrhosis of liver with ascites
--- NOTE | 2018-05-11 16:15 | EKG ---
Test Reason : Blood Pressure : / mmHG Vent. Rate : 088 BPM Atrial Rate : 088 BPM P-R Int : 142 ms QRS Dur : 086 ms QT Int : 406 ms P-R-T Axes : 066 -45 -05 degrees QTc Int : 491 ms NORMAL SINUS RHYTHM LEFT ANTERIOR FASCICULAR BLOCK INFERIOR INFARCT , AGE UNDETERMINED ABNORMAL ECG WHEN COMPARED WITH ECG OF 10-MAY-2018 17:37, SIGNIFICANT CHANGES HAVE OCCURRED Confirmed by MARYANA SHEPARD, KEITH ([id number]) on 05/11/2018 4:15:02 PM Referred By: Confirmed By:KEITH MIJARES MD
--- NOTE | 2018-05-11 16:36 | PN ---
Progress Note (short form) - Note Progress Note: Neurologically stable. MRI Lumbar still pending. Reduced back pain today. Await MRI Lumbar to assess fracture of L1 Patient may benefit from Cervical decompression/fusion, however, may be too infirm medically. Will need to coordinate plan of care once MRI Lumbar is obtained and medical status stabilizes.
[2018-05-12] MEDS: ALBUTEROL SO4 2.5/IPRATROPIUM 0.5 INH SOL 3 ML VIAL.NEB. NEB SCH ×6 (00:10→20:45)
[2018-05-12] MEDS: INSULIN SLIDING SCALE (NOVOLOG) 1 VIAL SQ SCH ×4 (06:10→21:15)
[2018-05-12] MEDS: CARBIDOPA/LEVODOPA 25/100 TABLET (FP) PO SCH ×3 (06:12→21:13)
[2018-05-12] MEDS: GABAPENTIN 100 MG CAPSULE (FP) PO SCH ×3 (06:12→21:12)
[2018-05-12 07:12] LABS: BASO % 0.8 % (0-2.0); EOS % 4.2 % (0-4.5); HEMOGLOBIN 12.7 GM/dL (10.7-15.3); LYMPH % 27.8 % (8-40); MCH 29.1 pg (25.7-33.7); MCHC 33.3 g/dl (32.0-36.0); MEAN CELL VOLUME 87.4 fl (80-96); MEAN PLT VOLUME 7.9 fl (7.5-11.1); MONO % 10.5 % (3.8-10.2); NEUT % 56.7 % (42.8-82.8); PLATELET COUNT 133 K/MM3 (134-434); RBC 4.35 M/mm3 (3.60-5.2); RDW 17.8 % (11.6-15.6)
[2018-05-12 07:41] LABS: ALBUMIN 1.9 g/dl (3.4-5.0); ALK PHOS 199 U/L (45-117); ANION GAP 6 MMOL/L (8-16); BILIRUBIN,TOTAL 1.4 mg/dL (0.2-1); BLOOD UREA NITROGEN 9 mg/dL (7-18); CALCIUM 8.6 mg/dL (8.5-10.1); CHLORIDE 102 mmol/L (98-107); CO2 33 mmol/L (21-32); CREATININE 0.8 mg/dL (0.55-1.3); GLUCOSE,RANDOM 171 mg/dL (74-106); POTASSIUM 3.3 mmol/L (3.5-5.1); SGOT/AST 34 U/L (15-37); SGPT/ALT 10 U/L (13-61); SODIUM 141 mmol/L (136-145); TOT PROT 5.6 g/dl (6.4-8.2)
[2018-05-12] MEDS: BUDESONIDE 0.5 MG/2 ML INH SUSP VIAL NEB SCH ×2 (07:55→20:45)
--- NOTE | 2018-05-12 09:15 | PN ---
Progress Note (short form) - Note Progress Note: Neurology HISTORY OF PRESENT ILLNESS: 77F w/ pmhx of CAD, DM, HTN, CVA (2013 w/ R residual deficits), anemia, breast cx 12/21 who was brought to the hospital by family with complaints of back pain. Per son, pt arrived from [place] day of admission. Recently, her 1 month ago after which she traveled to [place] to be with her siblings. It was noted that pt was found to have decreased motivation and ability to perform IADLs so pt was [place] Pt's son received her and consequently found the pt not able to function independently. OF note, was complaining of lower back pain that has been limiting her ability to ambulate. Per notes, patient with L1 and L4 compression fx. L1 acute/subacute , L4 s/p kyphoplasty per notes. MRI C spine compelted and with bulge/herniation , slight impingement at C3/C4, NSGY note reviewed, considering ACDF. MRI L spine completed, awaiting official report. Neurologically with RUE tremor noted , denied h/o Parkinson's but appeared to be consistent with pill rolling. Added Sinemet 25/100 tid to regiment, tremor still visible, reduced, can be continued at current dose. Allergies levofloxacin [From Levaquin] Allergy (Intermediate, Verified 05/06/18 16:50) Rash Penicillins Allergy (Verified 05/06/18 16:50) Rash sulfamethoxazole [From Bactrim] Adverse Reaction (Intermediate, Verified 16:50) dizziness, dyspepsia and nausea trimethoprim [From Bactrim] Adverse Reaction (Intermediate, Verified 05/06/18 16 :50) dizziness, dyspepsia and nausea Active Medications Acetaminophen (Tylenol -) 650 mg PO Q6H PRN PRN Reason: PAIN LEVEL 4 - 6 Last Admin: 05/09/18 09:51 Dose: 650 mg Albuterol/Ipratropium (Duoneb -) 1 amp NEB RQ4H [facility] Last Admin: 05/12/18 07:55 Dose: 1 amp Amlodipine Besylate (Norvasc -) 5 mg PO DAILY [facility] Last Admin: 05/11/18 10:55 Dose: 5 mg Budesonide (Pulmicort 0.5 Mg Nebulizer -) 1 amp NEB RBID [facility] Last Admin: 05/12/18 07:55 Dose: 1 amp Carbidopa/Levodopa (Sinemet 25/100 -) 1 each PO TID [facility] Last Admin: 05/12/18 06:12 Dose: 1 each Collagenase (Santyl -) 1 applic TP DAILY [facility]; Protocol Last Admin: 05/11/18 10:56 Dose: 1 applic Furosemide (Lasix Injection -) 40 mg IVPUSH DAILY [facility] Last Admin: 05/11/18 10:55 Dose: 40 mg Gabapentin (Neurontin -) 100 mg PO TID [facility] Last Admin: 05/12/18 06:12 Dose: 100 mg Heparin Sodium (Porcine) (Heparin -) 5,000 unit SQ BID [facility] Last Admin: 05/11/18 21:06 Dose: 5,000 unit Insulin Aspart (Novolog Vial Sliding Scale -) 1 vial SQ ACHS [facility]; Protocol Last Admin: 05/12/18 06:10 Dose: Not Given Losartan Potassium (Cozaar -) 25 mg PO DAILY [facility] Last Admin: 05/11/18 10:55 Dose: 25 mg Nadolol (Corgard -) 20 mg PO DAILY [facility] Last Admin: 05/11/18 10:55 Dose: 20 mg Potassium Chloride (Potassium Chloride Oral Liquid) 40 meq PO DAILY [facility] Last Admin: 05/11/18 10:55 Dose: 40 meq PHYSICAL EXAMINATION Vital Signs Period Temp Pulse Resp BP Sys/Donovan Pulse Ox Last 24 Hr 97.8 F-98.2 F 82-97 18-20 108-127/49-75 96 GENERAL: AAOx3. NAD. HEENT: AT/NC. EOMI. Dry membranes. NECK: Normal range of motion, supple without lymphadenopathy, JVD, or masses. LUNGS: CTA B/L. No wheezes, rhonchi, crackles noted. HEART: RRR. Normal S1, S2. No murmurs noted. ABDOMEN: Soft, NT/ND. No masses/bruit noted. +BS in all 4Q's. MUSCULOSKELETAL: No CVA tenderness. EXTREMITIES: No peripheral edema noted. 5/5 muscle strength in u/l b/l LE. NEUROLOGICAL: Normal speech. CN II-XII intact, RUE low amplitude tremor noted, minimal cogwheeling, strenght intact grossly, gait deferred PSYCHIATRIC: Cooperative. Good eye contact. Appropriate mood and affect. SKIN: 0.5x1cm Stage II sacral decubitus ulcer, non-draining, dry, erythematous CBCD WBC 8.0 K/mm3 (4.0-10.0) 05/12/18 06:25 RBC 4.35 M/mm3 (3.60-5.2) 05/12/18 06:25 Hgb 12.7 GM/dL (10.7-15.3) 05/12/18 06:25 Hct 38.0 % (32.4-45.2) 05/12/18 06:25 MCV 87.4 fl (80-96) 05/12/18 06:25 MCHC 33.3 g/dl (32.0-36.0) 05/12/18 06:25 RDW 17.8 % (11.6-15.6) H 05/12/18 06:25 Plt Count 133 K/MM3 (134-434) L 05/12/18 06:25 MPV 7.9 fl (7.5-11.1) 05/12/18 06:25 CMP Sodium 141 mmol/L (136-145) 05/12/18 06:25 Potassium 3.3 mmol/L (3.5-5.1) L 05/12/18 06:25 Chloride 102 mmol/L (98-107) 05/12/18 06:25 Carbon Dioxide 33 mmol/L (21-32) H 05/12/18 06:25 Anion Gap 6 MMOL/L (8-16) L 05/12/18 06:25 BUN 9 mg/dL (7-18) 05/12/18 06:25 Creatinine 0.8 mg/dL (0.55-1.3) 05/12/18 06:25 Creat Clearance w eGFR > 60 (>60) 05/12/18 06:25 Random Glucose 171 mg/dL (74-106) H 05/12/18 06:25 Calcium 8.6 mg/dL (8.5-10.1) 05/12/18 06:25 Total Bilirubin 1.4 mg/dL (0.2-1) H 05/12/18 06:25 AST 34 U/L (15-37) 05/12/18 06:25 ALT 10 U/L (13-61) L 05/12/18 06:25 Alkaline Phosphatase 199 U/L (45-117) H 05/12/18 06:25 Total Protein 5.6 g/dl (6.4-8.2) L 05/12/18 06:25 Albumin 1.9 g/dl (3.4-5.0) L 05/12/18 06:25 CARDIAC ENZYMES Creatine Kinase 178 IU/L (26-192) 05/06/18 21:11 Troponin I 0.03 ng/ml (0.00-0.05) 05/11/18 03:15 ASSESSMENT/PLAN: 77F w/ pmhx of CAD, DM, HTN, CVA (2013 w/ R residual deficits), anemia, breast cx 12/21 who was brought to the hospital by family with complaints of back pain. Per son, pt arrived from [place] day of admission. Recently, her 1 month ago after which she traveled to [place] to be with her siblings. It was noted that pt was found to have decreased motivation and ability to perform IADLs so pt was sent [place] Pt's son received her and consequently found the pt not able to function independently. OF note, was complaining of lower back pain that has been limiting her ability to ambulate. Per notes, patient with L1 and L4 compression fx. L1 acute/subacute , L4 s/p kyphoplasty per notes. MRI C spine compelted and with bulge/herniation , slight impingement at C3/C4, NSGY note reviewed, considering ACDF. MRI L spine complete, awaiting official report. Neurologically with RUE tremor noted, denies h/o Parkinson's but appears to be consistent with pill rolling. Sinemet 25/100 tid added to regiment. Neurologically with RUE tremor improving, denied h /o Parkinson's but appeared to be consistent with pill rolling. Follow up MRI L spine. NSGY following. Continued medical optimization, ambulation as tolerated, especially with sacral decub. Likely to require placement. Fall risk. Physicial therapy as tolerated. DVT ppx
--- NOTE | 2018-05-12 10:45 | PN ---
Progress Note, Physician History of Present Illness: pulmonary alert,less dyspneic,+back pain - Current Medication List Current Medications: Active Medications Acetaminophen (Tylenol -) 650 mg PO Q6H PRN PRN Reason: PAIN LEVEL 4 - 6 Last Admin: 05/09/18 09:51 Dose: 650 mg Albuterol/Ipratropium (Duoneb -) 1 amp NEB RQ4H [facility] Last Admin: 05/12/18 07:55 Dose: 1 amp Amlodipine Besylate (Norvasc -) 5 mg PO DAILY [facility] Last Admin: 05/11/18 10:55 Dose: 5 mg Budesonide (Pulmicort 0.5 Mg Nebulizer -) 1 amp NEB RBID [facility] Last Admin: 05/12/18 07:55 Dose: 1 amp Carbidopa/Levodopa (Sinemet 25/100 -) 1 each PO TID [facility] Last Admin: 05/12/18 06:12 Dose: 1 each Collagenase (Santyl -) 1 applic TP DAILY [facility]; Protocol Last Admin: 05/11/18 10:56 Dose: 1 applic Furosemide (Lasix Injection -) 40 mg IVPUSH DAILY [facility] Last Admin: 05/11/18 10:55 Dose: 40 mg Gabapentin (Neurontin -) 100 mg PO TID [facility] Last Admin: 05/12/18 06:12 Dose: 100 mg Heparin Sodium (Porcine) (Heparin -) 5,000 unit SQ BID [facility] Last Admin: 05/11/18 21:06 Dose: 5,000 unit Insulin Aspart (Novolog Vial Sliding Scale -) 1 vial SQ ACHS [facility]; Protocol Last Admin: 05/12/18 06:10 Dose: Not Given Losartan Potassium (Cozaar -) 25 mg PO DAILY [facility] Last Admin: 05/11/18 10:55 Dose: 25 mg Nadolol (Corgard -) 20 mg PO DAILY [facility] Last Admin: 05/11/18 10:55 Dose: 20 mg Potassium Chloride (Potassium Chloride Oral Liquid) 40 meq PO DAILY [facility] Last Admin: 05/11/18 10:55 Dose: 40 meq - Objective Vital Signs: Vital Signs Temperature 98.2 F 05/12/18 06:00 Pulse Rate 88 05/12/18 06:00 Respiratory Rate 19 05/12/18 09:00 Blood Pressure 121/58 L 05/12/18 06:00 O2 Sat by Pulse Oximetry (%) 96 05/12/18 09:00 Constitutional: Yes: Well Nourished, Calm Eyes: Yes: WNL HENT: Yes: WNL Neck: Yes: WNL Cardiovascular: Yes: Regular Rate and Rhythm, S1, S2 Respiratory: Yes: Rhonchi (scattered alvarez rhonchi) Gastrointestinal: Yes: Normal Bowel Sounds, Soft Extremities: Yes: WNL Edema: No Labs: CBC, BMP 05/12/18 06:25 05/12/18 06:25 INR, PTT INR 1.25 (0.83-1.09) H 05/06/18 18:54 Assessment/Plan A/P UTI Pneumonia Interstitial Lung Disease CAD h/o CVA h/o Breast Ca h/o KALIE - lasix - monitor urine output, creatinine - O2 to keep spO2 >90% - inhaled bronchodilators - DVT prophylaxis - chest ct DR WESLEY
[2018-05-12] MEDS: NADOLOL 20 MG TABLET (FP) PO SCH (11:20)
[2018-05-12] MEDS: HEPARIN NA (PORCINE) 5,000 UNITS/ML 1ML VIAL SQ SCH ×2 (11:20→21:13)
[2018-05-12] MEDS: LOSARTAN POTASSIUM 25 MG TABLET PO SCH (11:20)
[2018-05-12] MEDS: POTASSIUM CHLORIDE ORAL LIQUID 20 MEQ/15 ML PO SCH (11:20)
[2018-05-12] MEDS: FUROSEMIDE 40 MG/4 ML INJECTABLE VIAL IVPUSH SCH (11:21)
[2018-05-12] MEDS: amLODIPine BESYLATE 5 MG TABLET (FP) PO SCH (11:21)
--- NOTE | 2018-05-12 11:56 | PN ---
Progress Note, Physician Chief Complaint: seen and examined needs two person assist to get out of bed - Current Medication List Current Medications: Active Medications Acetaminophen (Tylenol -) 650 mg PO Q6H PRN PRN Reason: PAIN LEVEL 4 - 6 Last Admin: 05/09/18 09:51 Dose: 650 mg Albuterol/Ipratropium (Duoneb -) 1 amp NEB RQ4H [facility] Last Admin: 05/12/18 11:21 Dose: 1 amp Amlodipine Besylate (Norvasc -) 5 mg PO DAILY [facility] Last Admin: 05/12/18 11:21 Dose: 5 mg Budesonide (Pulmicort 0.5 Mg Nebulizer -) 1 amp NEB RBID [facility] Last Admin: 05/12/18 07:55 Dose: 1 amp Carbidopa/Levodopa (Sinemet 25/100 -) 1 each PO TID [facility] Last Admin: 05/12/18 06:12 Dose: 1 each Collagenase (Santyl -) 1 applic TP DAILY [facility]; Protocol Last Admin: 05/11/18 10:56 Dose: 1 applic Furosemide (Lasix Injection -) 40 mg IVPUSH DAILY [facility] Last Admin: 05/12/18 11:21 Dose: 40 mg Gabapentin (Neurontin -) 100 mg PO TID [facility] Last Admin: 05/12/18 06:12 Dose: 100 mg Heparin Sodium (Porcine) (Heparin -) 5,000 unit SQ BID [facility] Last Admin: 05/12/18 11:20 Dose: 5,000 unit Insulin Aspart (Novolog Vial Sliding Scale -) 1 vial SQ ACHS [facility]; Protocol Last Admin: 05/12/18 06:10 Dose: Not Given Losartan Potassium (Cozaar -) 25 mg PO DAILY [facility] Last Admin: 05/12/18 11:20 Dose: 25 mg Nadolol (Corgard -) 20 mg PO DAILY [facility] Last Admin: 05/12/18 11:20 Dose: 20 mg Potassium Chloride (Potassium Chloride Oral Liquid) 40 meq PO DAILY [facility] Last Admin: 05/12/18 11:20 Dose: 40 meq - Objective Vital Signs: Vital Signs Temperature 98.2 F 05/12/18 06:00 Pulse Rate 88 05/12/18 06:00 Respiratory Rate 19 05/12/18 09:00 Blood Pressure 121/58 L 05/12/18 06:00 O2 Sat by Pulse Oximetry (%) 96 05/12/18 09:00 Constitutional: Yes: Calm, Thin Cardiovascular: Yes: Regular Rate and Rhythm, S1, S2 Respiratory: Yes: On Nasal O2, Rhonchi Gastrointestinal: Yes: Normal Bowel Sounds, Soft Extremities: Yes: Other (prominent veins) Neurological: Yes: Alert, Oriented Labs: CBC, BMP 05/12/18 06:25 05/12/18 06:25 INR, PTT INR 1.25 (0.83-1.09) H 05/06/18 18:54 Problem List - Problems (1) Back pain Assessment/Plan: ct abdomen show compression fracture of L1 MRI done marked compression onf L! ANSELMO on board neurology saw the patient as well pain control/ stool softner Code(s): M54.9 - DORSALGIA, UNSPECIFIED (2) Electrolyte abnormality Assessment/Plan: potassium recheck in AM Code(s): E87.8 - OTH DISORDERS OF ELECTROLYTE AND FLUID BALANCE, NEC (3) Sacral decubitus ulcer Assessment/Plan: frequent turn position wound care on board collagenase Code(s): L89.159 - PRESSURE ULCER OF SACRAL REGION, UNSPECIFIED STAGE Qualifiers: Pressure injury stage: stage 2 Qualified Code(s): L89.152 - Pressure ulcer of sacral region, stage 2 (4) Elevated lactic acid level Assessment/Plan: ID consult noted Code(s): R79.89 - OTHER SPECIFIED ABNORMAL FINDINGS OF BLOOD CHEMISTRY (5) Interstitial lung disease Assessment/Plan: oxygen bronchodilators chest CT Code(s): J84.9 - INTERSTITIAL PULMONARY DISEASE, UNSPECIFIED (6) Tremor Assessment/Plan: neurology on board sinemet Code(s): R25.1 - TREMOR, UNSPECIFIED
[2018-05-12] MEDS: COLLAGENASE CLOSTRIDIUM HIST. 30 GRAMS TUBE TP SCH (13:48)
[2018-05-12] MEDS ORDERED: ACETAMINOPHEN 325 MG TABLET (FP) PO PRN (17:32)
--- NOTE | 2018-05-12 18:28 | PN ---
Progress Note (short form) - Note Progress Note: Patient resting comfortably. Not using supplemental oxygen. Lumbar MRI reviewed and no conus injury identified. Patient should be able to heal in TLSO brace. Clear from Neurosurgery for discharge to SNF/Rehab. Will see in office in 3 months or sooner if any problems develop. If Cervical symptoms are progressive and persistent, will revisit role for Cervical decompression/fusion if medically stable
[2018-05-12] MEDS ORDERED: INSULIN (NOVOLOG) ASPART 100 UNITS/ML 10ML VIAL ONE (20:38)
[2018-05-13] MEDS: ALBUTEROL SO4 2.5/IPRATROPIUM 0.5 INH SOL 3 ML VIAL.NEB. NEB SCH ×5 (04:38→15:45)
[2018-05-13] MEDS: GABAPENTIN 100 MG CAPSULE (FP) PO SCH ×2 (05:37→15:01)
[2018-05-13] MEDS: CARBIDOPA/LEVODOPA 25/100 TABLET (FP) PO SCH ×2 (05:37→15:01)
[2018-05-13] MEDS: INSULIN SLIDING SCALE (NOVOLOG) 1 VIAL SQ SCH ×3 (06:03→16:59)
[2018-05-13 07:49] LABS: ANION GAP 7 MMOL/L (8-16); BLOOD UREA NITROGEN 8 mg/dL (7-18); CALCIUM 8.5 mg/dL (8.5-10.1); CHLORIDE 100 mmol/L (98-107); CO2 30 mmol/L (21-32); CREATININE 0.7 mg/dL (0.55-1.3); GLUCOSE,RANDOM 173 mg/dL (74-106); POTASSIUM 3.1 mmol/L (3.5-5.1); SODIUM 137 mmol/L (136-145)
[2018-05-13] MEDS: BUDESONIDE 0.5 MG/2 ML INH SUSP VIAL NEB SCH (07:55)
[2018-05-13] MEDS: NADOLOL 20 MG TABLET (FP) PO SCH (09:21)
[2018-05-13] MEDS: amLODIPine BESYLATE 5 MG TABLET (FP) PO SCH (09:21)
[2018-05-13] MEDS: HEPARIN NA (PORCINE) 5,000 UNITS/ML 1ML VIAL SQ SCH (09:21)
[2018-05-13] MEDS: LOSARTAN POTASSIUM 25 MG TABLET PO SCH (09:21)
[2018-05-13] MEDS ORDERED: FUROSEMIDE 40 MG/4 ML INJECTABLE VIAL IVPUSH SCH (10:00)
[2018-05-13] MEDS ORDERED: COLLAGENASE CLOSTRIDIUM HIST. 30 GRAMS TUBE TP SCH (10:00)
[2018-05-13] MEDS ORDERED: POTASSIUM CHLORIDE ORAL LIQUID 20 MEQ/15 ML PO SCH (10:00)
--- NOTE | 2018-05-13 10:59 | PN ---
Progress Note (short form) - Note Progress Note: Resting in NAD. Some dry cough and pleuritic type discomfort. Still with LBP issues. Intake & Output 05/10/18 05/11/18 05/12/18 05/13/18 23:59 23:59 23:59 23:59 Intake Total 800 920 350 250 Balance 800 920 350 250 Last Vital Signs Temp Pulse Resp BP Pulse Ox 98.1 F 82 16 119/71 95 05/13/18 10:00 05/13/18 10:00 05/13/18 10:00 05/13/18 10:00 05/12/18 21:00 Active Medications Acetaminophen (Tylenol -) 650 mg PO Q6H PRN PRN Reason: PAIN LEVEL 4 - 6 Albuterol/Ipratropium (Duoneb -) 1 amp NEB RQ4H [facility] Last Admin: 05/13/18 07:40 Dose: 1 amp Amlodipine Besylate (Norvasc -) 5 mg PO DAILY [facility] Last Admin: 05/13/18 09:21 Dose: 5 mg Budesonide (Pulmicort 0.5 Mg Nebulizer -) 1 amp NEB RBID [facility] Last Admin: 05/13/18 07:55 Dose: 1 amp Carbidopa/Levodopa (Sinemet 25/100 -) 1 each PO TID [facility] Last Admin: 05/13/18 05:37 Dose: 1 each Collagenase (Santyl -) 1 applic TP DAILY [facility]; Protocol Last Admin: 05/13/18 09:22 Dose: 1 applic Furosemide (Lasix Injection -) 40 mg IVPUSH DAILY [facility] Last Admin: 05/13/18 09:21 Dose: 40 mg Gabapentin (Neurontin -) 100 mg PO TID [facility] Last Admin: 05/13/18 05:37 Dose: 100 mg Heparin Sodium (Porcine) (Heparin -) 5,000 unit SQ BID [facility] Last Admin: 05/13/18 09:21 Dose: 5,000 unit Insulin Aspart (Novolog Vial Sliding Scale -) 1 vial SQ ACHS [facility]; Protocol Last Admin: 05/13/18 06:03 Dose: Not Given Losartan Potassium (Cozaar -) 25 mg PO DAILY [facility] Last Admin: 05/13/18 09:21 Dose: 25 mg Nadolol (Corgard -) 20 mg PO DAILY [facility] Last Admin: 05/13/18 09:21 Dose: 20 mg Potassium Chloride (Potassium Chloride Oral Liquid) 40 meq PO DAILY [facility] Last Admin: 05/13/18 09:21 Dose: 40 meq Constitutional: Yes: NAD Eyes: Yes: WNL HENT: Yes: WNL Neck: Yes: WNL Cardiovascular: Yes: Regular Rate and Rhythm, S1, S2 Respiratory: Yes: Rhonchi (scattered alvarez rhonchi) Gastrointestinal: Yes: Normal Bowel Sounds, Soft Extremities: Yes: WNL Edema: No Labs: Laboratory Results - last 24 hr 05/12/18 05/12/18 05/12/18 12:27 16:04 21:14 Sodium Potassium Chloride Carbon Dioxide Anion Gap BUN Creatinine Creat Clearance w eGFR POC Glucometer 232 282 362 Random Glucose Lactic Acid Calcium 05/13/18 05/13/18 05/13/18 05:38 06:30 06:30 Sodium 137 Potassium 3.1 L Chloride 100 Carbon Dioxide 30 Anion Gap 7 L BUN 8 Creatinine 0.7 Creat Clearance w eGFR > 60 POC Glucometer 181 Random Glucose 173 H Lactic Acid 1.7 Calcium 8.5 Assessment/Plan UTI Pneumonia Interstitial Lung Disease CAD h/o CVA h/o Breast Ca h/o LUCILLE - lasix - monitor urine output, creatinine - O2 to keep spO2 >90% - inhaled bronchodilators - DVT prophylaxis - Chest CT ordered Dr Viveros
[2018-05-13] MEDS ORDERED: POTASSIUM CHLORIDE TABS 10 MEQ TABLET.ER (FP) PO ONE (11:27)
--- NOTE | 2018-05-13 11:34 | DS ---
Physical Examination Vital Signs: Vital Signs Temperature 98.1 F 05/13/18 10:00 Pulse Rate 82 05/13/18 10:00 Respiratory Rate 16 05/13/18 10:00 Blood Pressure 119/71 05/13/18 10:00 O2 Sat by Pulse Oximetry (%) 95 05/12/18 21:00 Constitutional: Yes: No Distress Eyes: Yes: WNL HENT: Yes: WNL Neck: Yes: WNL Cardiovascular: Yes: WNL Respiratory: Yes: WNL Gastrointestinal: Yes: Soft Renal/: Yes: WNL Musculoskeletal: Yes: Back Pain, Muscle Weakness Edema: No Neurological: Yes: Pre-Existing Deficit, Unsteady Gait ...Motor Strength: LLE, RLE Psychiatric: Yes: WNL Labs: CBC, BMP 05/12/18 06:25 05/13/18 06:30 Discharge Summary Reason For Visit: LACTIC ACIDOSIS, FAILURE TO THRIVE Current Active Problems Back pain (Acute) Electrolyte abnormality (Acute) Elevated lactic acid level (Acute) Failure to thrive (Acute) Interstitial lung disease (Acute) Lactic acidosis (Acute) 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 Condition: Stable - Instructions Diet, Activity, Other Instructions: LOW SALT INCENTIVE SPIROMETRY PT FOR BACK PAIN CHECK WEEKLY ELECTROLYTES Referrals: Kraig Matos MD [Primary Care Provider] - Ekta Lopez MD, FACP, FACG [Staff Physician] - Disposition: [facility] - Home Medications Comprehensive Discharge Medication List: Ambulatory Orders Aspirin [ASA -] 81 mg PO DAILY 10/09/14 Albuterol Sulfate [Proventil HFA Inhaler -] 1 - 2 inh PO Q4H PRN 07/03/15 Nadolol [Corgard -] 20 mg PO DAILY tablet 09/05/17 Amlodipine Besylate [Norvasc -] 5 mg PO DAILY 01/24/18 Escitalopram Oxalate [Lexapro -] 10 mg PO DAILY 01/24/18 Fludrocortisone Acetate [Florinef -] 0.1 mg PO DAILY 01/24/18 Fluticasone Furoate [Arnuity Ellipta] 100 mcg IH DAILY 01/24/18 Pantoprazole Sodium [Protonix] 40 mg PO DAILY 01/24/18 Umeclidinium [place] [Incruse Ellipta] 62.5 mcg IH DAILY 01/24/18 Atorvastatin Calcium [Lipitor] 10 mg PO DAILY 05/07/18 Humalog Kwikpen U-100 2 - 12 units SQ ASDIR PRN 05/07/18 Insulin (Levemir) [Levemir Vial] 50 units SQ ACDIN 05/07/18 Nortriptyline HCl [Pamelor -] 25 mg PO DAILY 05/07/18 Valsartan/Hydrochlorothiazide [Diovan Hct 320-12.5 mg Tab] 1 each PO 05/07/18 Acetaminophen [Tylenol .Regular Strength -] 650 mg PO Q6H PRN tablet 05/13/18 Albuterol 2.5/Ipratropium 0.5 [Duoneb -] 1 amp NEB RQ4H amp 05/13/18 Budesonide [Pulmicort 0.5 mg Nebulizer -] 1 amp NEB RBID amp 05/13/18 Carbidopa/Levodopa 25/100 [Sinemet 25/100 -] 1 each PO TID tablet 05/13/18 Collagenase Clostridium Hist. [Santyl -] 1 applic TP DAILY tube 05/13/18 Furosemide [Lasix] 40 mg PO BID #60 tablet 05/13/18 Gabapentin [Neurontin -] 100 mg PO TID capsule 05/13/18 Heparin - 5,000 unit SQ BID vial 05/13/18 Insulin Sliding Scale [Novolog Vial Sliding Scale -] 1 vial SQ ACHS units 05/13 Losartan Potassium [Cozaar -] 25 mg PO DAILY tablet 05/13/18 Potassium Chloride [Potassium Chloride Oral Liquid] 40 meq PO DAILY cup
[2018-05-13 15:01] VITALS: BP 143/79; PULSE 87; TEMP 97.7
--- NOTE | 2018-06-24 13:20 | EKG ---
Test Reason : Blood Pressure : / mmHG Vent. Rate : 141 BPM Atrial Rate : 141 BPM P-R Int : 124 ms QRS Dur : 078 ms QT Int : 294 ms P-R-T Axes : 030 -26 092 degrees QTc Int : 450 ms SINUS TACHYCARDIA WITH PREMATURE SUPRAVENTRICULAR COMPLEXES LEFT VENTRICULAR HYPERTROPHY WITH REPOLARIZATION ABNORMALITY NONSPECIFIC ST ABNORMALITY ABNORMAL ECG Confirmed by JAY SOLARES MD ([id number]) on 06/24/2018 1:20:31 PM Referred By: Confirmed By:JAY SOLARES MD
== END 2018-05-13 17:35 | DRG 542 ==
LOC: JER 16:27 → JERBED 22:47 → UNDOADMIN 23:08 → J6S 05-08 00:05 → J4W 05-10 19:05 → J8W 05-12 16:29
PROVIDERS: ADMIT Internal Medicine; ATTEND Family Medicine
DX: M48.56XA Collapsed vertebra, not elsewhere classified, lumbar region, initial encounter for fracture (principal); L89.153 Pressure ulcer of sacral region, stage 3; E87.2 Acidosis; J84.9 Interstitial pulmonary disease, unspecified; N39.0 Urinary tract infection, site not specified; E27.40 Unspecified adrenocortical insufficiency; C50.912 Malignant neoplasm of unspecified site of left female breast; Z17.0 Estrogen receptor positive status [ER+]; E11.9 Type 2 diabetes mellitus without complications; L89.152 Pressure ulcer of sacral region, stage 2; D69.6 Thrombocytopenia, unspecified; K70.30 Alcoholic cirrhosis of liver without ascites; I10 Essential (primary) hypertension; D64.9 Anemia, unspecified; I69.398 Other sequelae of cerebral infarction; Z79.4 Long term (current) use of insulin; J45.909 Unspecified asthma, uncomplicated; I25.10 Atherosclerotic heart disease of native coronary artery without angina pectoris; Z95.5 Presence of coronary angioplasty implant and graft; E78.00 Pure hypercholesterolemia, unspecified; F41.9 Anxiety disorder, unspecified; R62.7 Adult failure to thrive; E87.6 Hypokalemia; I34.0 Nonrheumatic mitral (valve) insufficiency; Z87.891 Personal history of nicotine dependence; R63.4 Abnormal weight loss; Z68.27 Body mass index [BMI] 27.0-27.9, adult; E87.8 Other disorders of electrolyte and fluid balance, not elsewhere classified; I25.9 Chronic ischemic heart disease, unspecified; Z88.1 Allergy status to other antibiotic agents; W18.39XA Other fall on same level, initial encounter; Y93.89 Activity, other specified; Y92.89 Other specified places as the place of occurrence of the external cause; Y99.8 Other external cause status; R25.1 Tremor, unspecified
CPT/HCPCS: 36415; 71045-TC-FY; 72141-TC; 72148-TC; 74176-TC; 76705-TC; 80048; 80053; 80074; 81003; 81015; 82378; 82533; 82550; 82553; 82962; 83036; 83605; 83615; 83735; 84439; 84443; 84484; 85025; 85610; 85651; 85730; 86140; 86301; 87040; 87070; 87077; 87086; 87205; 87804; 93005; 93010; 94640; 97116-GP; 97162-GP; 99285-25; J0131; J1644; J7030

== ENCOUNTER 2018-06-28 17:21 | Inpatient (IN) | payer OTHER ==
--- NOTE | 2018-06-28 18:11 | PDOC ---
History of Present Illness - General Chief Complaint: SIRS, Suspected/Possible Stated Complaint: FEVER - History of Present Illness Initial Comments: 06/28/18 18:22 77 yo female with PMH CAD, DM, HTN, CVA (residual deficits) Anemia, past Breast CA presents with complaint of 5 days of worsening chest congestion, cough productive of brown sputum, and was found to be saturating 89% at group home. She states she has felt mildly feverish at times with some related chills. She also endorses a mild headache but denies any diffuse pain or myalgias. Past History - Travel Traveled outside of the country in the last 30 days: No - Past Medical History Allergies/Adverse Reactions: Allergies Allergy/AdvReac Type Severity Reaction Status Date / Time levofloxacin [From Levaquin] Allergy Intermediate Rash Verified 06/28/18 17:22 Penicillins Allergy Rash Verified 06/28/18 17:22 sulfamethoxazole AdvReac Intermediate Verified 06/28/18 17:22 [From Bactrim] trimethoprim [From Bactrim] AdvReac Intermediate Verified 06/28/18 17:22 Home Medications: Ambulatory Orders Aspirin [ASA -] 81 mg PO DAILY 10/09/14 Nadolol [Corgard -] 20 mg PO DAILY tablet 09/05/17 Escitalopram Oxalate [Lexapro -] 10 mg PO DAILY 01/24/18 Fludrocortisone Acetate [Florinef -] 0.1 mg PO DAILY 01/24/18 Fluticasone Furoate [Arnuity Ellipta] 100 mcg IH DAILY 01/24/18 Pantoprazole Sodium [Protonix] 40 mg PO DAILY 01/24/18 Atorvastatin Calcium [Lipitor] 10 mg PO HS 05/07/18 Insulin (Levemir) [Levemir Vial] 25 units SQ HS 05/07/18 Nortriptyline HCl [Pamelor -] 25 mg PO DAILY 05/07/18 Acetaminophen [Tylenol .Regular Strength -] 650 mg PO Q6H PRN tablet 05/13/18 Budesonide [Pulmicort 0.5 mg Nebulizer -] 1 amp NEB RBID amp 05/13/18 Carbidopa/Levodopa 25/100 [Sinemet 25/100 -] 1 each PO TID tablet 05/13/18 Furosemide [Lasix] 40 mg PO BID #60 tablet 05/13/18 Gabapentin [Neurontin -] 100 mg PO TID capsule 05/13/18 Heparin - 5,000 unit SQ BID vial 05/13/18 Insulin Sliding Scale [Novolog Vial Sliding Scale -] 1 vial SQ ACHS units 05/13 Losartan Potassium [Cozaar -] 25 mg PO DAILY tablet 05/13/18 Potassium Chloride [Potassium Chloride Oral Liquid] 40 meq PO DAILY cup Ipratropium/Albuterol Sulfate [Iprat-Albut 0.5-3(2.5) mg/3 ml] 3 ml IH Q6H 06/28 Nystatin Cream [Mycostatin] 1 applic TP BID 06/28/18 Zinc Oxide 20% Topical Oint 454 gm NR ASDIR 06/28/18 Anemia: Yes Asthma: Yes Cancer: Yes (breast : Left lumpectomy) Cardiac Disorders: Yes (CAD with stents) CVA: Yes COPD: No Diabetes: Yes GI Disorders: Yes (HX. ULCERS,ESOPHAGEAL VARICES) HTN: Yes Hypercholesterolemia: Yes Liver Disease: Yes (ALCOHOL CIRRHOSIS??-ASCITES) Psychiatric Problems: Yes (ANXIETY.) - Surgical History Cardiac Surgery: Yes (STENT X 1 in LAD 1978) - Immunization History Immunization Up to Date: Yes - Suicide/Smoking/Psychosocial Hx Smoking Status: Yes Smoking History: Never smoked Years of Tobacco Use: 5 Have you smoked in the past 12 months: No Number of Cigarettes Smoked Daily: 0 If you are a former smoker, when did you quit?: over 30 years ago Information on smoking cessation initiated: No Hx Alcohol Use: No Drug/Substance Use Hx: No Substance Use Type: None Hx Substance Use Treatment: Yes (ALCOHOL) Review of Systems - Review of Systems Constitutional: Yes: Chills, Fever HEENTM: No: Eye Pain, Blurred Vision Respiratory: Yes: Cough. No: Orthopnea, Shortness of Breath Cardiac (ROS): No: Chest Pain, Edema, Palpitations ABD/GI: No: Abdominal Distended, Constipated, Diarrhea, Nausea, Vomiting Musculoskeletal: Yes: Back Pain *Physical Exam - Vital Signs Last Vital Signs Temp Pulse Resp BP Pulse Ox 99 F 81 20 104/58 L 99 06/28/18 17:23 06/28/18 17:23 06/28/18 17:23 06/28/18 17:23 06/28/18 17:23 - Physical Exam Comments: 06/28/18 18:24 GEN: A&O, no acute distress HEENT: dry mucus membranes, no exudate NECK: supple, no lymphadenopathy HEART: RRR, no murmurs noted LUNGS: Diffuse rhonchi noted with some mild expiratory wheezes ABDOMEN: Soft, nontender to palpation, normoactive bowel sounds EXTREMITIES: normal pulses, no peripheral edema or calf tenderness Moderate Sedation - Procedure Monitoring Vital Signs: Procedure Monitoring Vital Signs Temperature 99 F 06/28/18 17:23 Pulse Rate 81 06/28/18 17:23 Respiratory Rate 20 06/28/18 17:23 Blood Pressure 104/58 L 06/28/18 17:23 O2 Sat by Pulse Oximetry (%) 99 06/28/18 17:23 ED Treatment Course - LABORATORY CBC & Chemistry Diagram: 06/28/18 18:32 06/28/18 18:00 Medical Decision Making - Medical Decision Making 06/28/18 18:26 Pt does not meet SIRS criteria at this time. Suspected pneumonia vs viral URI vs influenza. CBC, CMP, Lactic acid, CXR, UA, Urine/blood cultures, flu swab pending. Suspect likely pneumonia at this point. Blood pressure is slightly below baseline on previous visits, pt appears clinically dry, will bolus fluids gently and reassess. Will also cover with Vancomycin 1000 mg IV and Aztreonam as pt is pcn allergic 06/28/18 18:56 Signout given to night resident who will continue management from this point forward. *DC/Admit/Observation/Transfer Diagnosis at time of Disposition: Healthcare associated bacterial pneumonia - Referrals Referrals: Jose Harman MD [Primary Care Provider] - - Patient Instructions - Post Discharge Activity
--- NOTE | 2018-06-28 18:24 | PDOC ---
Attending Attestation - Resident Resident Name: Rocky Cortes - ED Attending Attestation I have performed the following: I have examined & evaluated the patient, The case was reviewed & discussed with the resident, I agree w/resident's findings & plan, Exceptions are as noted - HPI HPI: 06/28/18 18:23 77 F with h/o CAD (with stents), DM, HTN, anemia, hypoNa, CVA (L-sided residual deficits/tremor), and breast CA, presenting from [place] with cough, SOB, and hypoxia. Pt reports productive cough x several days. Endorses associated SOB as well as subjective fevers. Per NH, pt was also hypoxic to high 80s today. Pt denies any chest pain. Denies leg swelling. - Physicial Exam PE: 06/28/18 18:23 "GENERAL: Awake, alert, and fully oriented, in no acute distress. HEAD: No signs of trauma EYES: PERRLA, EOMI, sclera anicteric, conjunctiva clear ENT: Auricles normal inspection, hearing grossly normal, nares patent, oropharynx clear without exudates. Moist mucosa NECK: Nontender, no stepoffs, Normal ROM, supple, no lymphadenopathy, JVD, or masses LUNGS: + diffuse rhonchi HEART: Regular rate and rhythm, normal S1 and S2, no murmurs, rubs or gallops ABDOMEN: Soft, nontender, normoactive bowel sounds. No guarding, no rebound. No masses EXTREMITIES: Normal range of motion, no edema. No clubbing or cyanosis. No cords, erythema, or tenderness NEUROLOGICAL: Cranial nerves II through XII intact. 5/5 strength and sensation in all extremities, Normal speech, normal gait, normal cerebellar function SKIN: Warm, Dry, normal turgor, no rashes or lesions noted. - Critical Care Time Total Critical Care Time: 60 Critical Care Statement: The care of this patient involved high complexity decision making to prevent further life threatening deterioration of the patient 's condition and/or to evaluate & treat vital organ system(s) failure or risk of failure. - Medical Decision Making 06/28/18 18:24 77 F with cough, SOB, found to be hypoxic at [place] and complaining of subjective fevers. Suspect PNA. Possible CHF though pt with no significant signs of volume overload. - Labs, cultures - CXR - Abx - Admit
[2018-06-28] MEDS ORDERED: AZTREONAM 2 GM in DEXTROSE 5%-WATER 100 ML IVPB ONE (18:32)
[2018-06-28] MEDS ORDERED: VANCOMYCIN 1 GM in D5W (PRE-DOCKED) 1,000 MG/250 ML IVPB ONE (18:32)
[2018-06-28] MEDS ORDERED: VANCOMYCIN 1 GRAM (PRE-DOCKED) 1,000 MG/250 ML BAG IVPB ONE (18:43)
[2018-06-28 18:47] LABS: BASO % 0.4 % (0-2.0); EOS % 4.3 % (0-4.5); HEMATOCRIT 34.6 % (32.4-45.2); HEMOGLOBIN 12.2 GM/dL (10.7-15.3); LYMPH % 15.5 % (8-40); MCH 33.1 pg (25.7-33.7); MCHC 35.4 g/dl (32.0-36.0); MEAN CELL VOLUME 93.4 fl (80-96); MEAN PLT VOLUME 7.7 fl (7.5-11.1); MONO % 8.4 % (3.8-10.2); NEUT % 71.4 % (42.8-82.8); PLATELET COUNT 220 K/MM3 (134-434); RDW 15.4 % (11.6-15.6); WHITE BLOOD COUNT 11.6 K/mm3 (4.0-10.0)
[2018-06-28] MEDS ORDERED: LACTATED RINGERS SOLUTION 1000 ML INFUS.BAG IV ONE (18:47)
[2018-06-28 18:49] LABS: URINE APPEARANCE CLEAR; URINE BILIRUBIN NEGATIVE (<2.0 mg/dL); URINE COLOR YELLOW; URINE GLUCOSE (UA) NEGATIVE (NEGATIVE); URINE KETONE NEGATIVE (NEGATIVE); URINE LEUK ESTERASE NEGATIVE (NEGATIVE); URINE NITRITE NEGATIVE (NEGATIVE); URINE PROTEIN NEGATIVE (NEGATIVE); URINE UROBILINOGEN 4.0 E.U/dl mg/dL (0.2-1.0)
[2018-06-28 19:19] LABS: ALBUMIN 2.1 g/dl (3.4-5.0); ALK PHOS 238 U/L (45-117); ANION GAP 7 MMOL/L (8-16); BILIRUBIN,TOTAL 0.9 mg/dL (0.2-1); BLOOD UREA NITROGEN 13 mg/dL (7-18); CALCIUM 8.6 mg/dL (8.5-10.1); CHLORIDE 97 mmol/L (98-107); CO2 34 mmol/L (21-32); CREATININE 0.7 mg/dL (0.55-1.3); GLUCOSE,RANDOM 180 mg/dL (74-106); POTASSIUM 3.8 mmol/L (3.5-5.1); SGOT/AST 39 U/L (15-37); SGPT/ALT 9 U/L (13-61); SODIUM 137 mmol/L (136-145); TOT PROT 7.4 g/dl (6.4-8.2)
--- NOTE | 2018-06-28 20:13 | HP ---
Admitting History and Physical - Primary Care Physician PCP: Jose Harman - Admission Chief Complaint: Chest Congestion, Productive Cough, Hypoxia History of Present Illness: This is a 77 y/o woman from [facility] with a PMHx of CAD s/p Stents, HTN, CVA ( residual deficits), DM, Breast Ca, Anemia, Anxiety, Ascites (Alcohol Cirrhosis) . Who presents to the ED for evaluation of productive cough- brown phlegm, chest congestion and hypoxia 88% at [place]. Patient reports having a thick brown cough x 7 days, via rn charge (healthcare worker at bedside). Patient denies fever, chills, MEI, dizziness, CP, palpitations. 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 poor prep in past.), Stent (cardiac), Tonsillectomy, Upper Endoscopy (h/o esoph varices. on nadalol. s/p banding. due to surveillance egd in 04/10/15) - Smoking History Smoking history: Never smoked Have you smoked in the past 12 months: No Aproximately how many cigarettes per day: 0 If you are a former smoker, when did you quit?: over 30 years ago - Alcohol/Substance Use Hx Alcohol Use: No History of Substance Use: reports: None - Social History Usual Living Arrangement: Yes: Retirement ADL: Support Services History of Recent Travel: Yes Home Medications - Allergies Allergies/Adverse Reactions: Allergies Allergy/AdvReac Type Severity Reaction Status Date / Time levofloxacin [From Levaquin] Allergy Intermediate Rash Verified 06/28/18 17:22 Penicillins Allergy Rash Verified 06/28/18 17:22 sulfamethoxazole AdvReac Intermediate Verified 06/28/18 17:22 [From Bactrim] trimethoprim [From Bactrim] AdvReac Intermediate Verified 06/28/18 17:22 - Home Medications Home Medications: Ambulatory Orders Aspirin [ASA -] 81 mg PO DAILY 10/09/14 Nadolol [Corgard -] 20 mg PO DAILY tablet 09/05/17 Escitalopram Oxalate [Lexapro -] 10 mg PO DAILY 01/24/18 Fludrocortisone Acetate [Florinef -] 0.1 mg PO DAILY 01/24/18 Fluticasone Furoate [Arnuity Ellipta] 100 mcg IH DAILY 01/24/18 Pantoprazole Sodium [Protonix] 40 mg PO DAILY 01/24/18 Atorvastatin Calcium [Lipitor] 10 mg PO HS 05/07/18 Insulin (Levemir) [Levemir Vial] 25 units SQ HS 05/07/18 Nortriptyline HCl [Pamelor -] 25 mg PO DAILY 05/07/18 Acetaminophen [Tylenol .Regular Strength -] 650 mg PO Q6H PRN tablet 05/13/18 Budesonide [Pulmicort 0.5 mg Nebulizer -] 1 amp NEB RBID amp 05/13/18 Carbidopa/Levodopa 25/100 [Sinemet 25/100 -] 1 each PO TID tablet 05/13/18 Furosemide [Lasix] 40 mg PO BID #60 tablet 05/13/18 Gabapentin [Neurontin -] 100 mg PO TID capsule 05/13/18 Heparin - 5,000 unit SQ BID vial 05/13/18 Insulin Sliding Scale [Novolog Vial Sliding Scale -] 1 vial SQ ACHS units 05/13 Losartan Potassium [Cozaar -] 25 mg PO DAILY tablet 05/13/18 Potassium Chloride [Potassium Chloride Oral Liquid] 40 meq PO DAILY cup Ipratropium/Albuterol Sulfate [Iprat-Albut 0.5-3(2.5) mg/3 ml] 3 ml IH Q6H 06/28 Nystatin Cream [Mycostatin] 1 applic TP BID 06/28/18 Zinc Oxide 20% Topical Oint 454 gm NR ASDIR 06/28/18 Family Disease History - Family Disease History Family Disease History: Diabetes: Brother (4 brothers), Other: Father ( 80's: unclear cancer), Mother ( 90's, unclear cause), Brother, Sister ( 7 sisters), Son (3, 1 : does not recall cause), Daughter (3) Review of Systems - Review of Systems Constitutional: reports: No Symptoms Eyes: reports: No Symptoms HENT: reports: Nasal Congestion Neck: reports: No Symptoms Cardiovascular: reports: No Symptoms Respiratory: reports: Cough Gastrointestinal: reports: No Symptoms Genitourinary: reports: No Symptoms Breasts: reports: No Symptoms Reported Musculoskeletal: reports: No Symptoms Integumentary: reports: No Symptoms Neurological: reports: No Symptoms Endocrine: reports: No Symptoms Hematology/Lymphatic: reports: No Symptoms Psychiatric: reports: No Symptoms Physical Examination Vital Signs: Vital Signs Temperature 99 F 06/28/18 17:23 Pulse Rate 81 06/28/18 17:23 Respiratory Rate 20 06/28/18 17:23 Blood Pressure 104/58 L 06/28/18 17:23 O2 Sat by Pulse Oximetry (%) 95 06/28/18 18:21 Constitutional: Yes: Well Nourished, No Distress, Calm Eyes: Yes: WNL, Conjunctiva Clear, EOM Intact, PERRL HENT: Yes: WNL, Atraumatic, Normocephalic Neck: Yes: WNL, Supple, Trachea Midline Cardiovascular: Yes: WNL, Regular Rate and Rhythm, S1, S2 Respiratory: Yes: Cough, Diminished, On Nasal O2, Rhonchi Gastrointestinal: Yes: WNL Renal/: Yes: WNL Breast(s): Yes: WNL Musculoskeletal: Yes: WNL Extremities: Yes: WNL Edema: No Peripheral Pulses WNL: Yes Neurological: Yes: WNL, Alert, Oriented, Cran Nerves II-XII Intact ...Motor Strength: WNL Psychiatric: Yes: WNL, Alert, Oriented Labs: CBC, BMP 06/28/18 18:32 06/28/18 18:00 Laboratory Results - last 24 hr 06/28/18 06/28/18 06/28/18 18:00 18:20 18:32 WBC 11.6 H RBC 3.70 Hgb 12.2 Hct 34.6 MCV 93.4 D MCH 33.1 D MCHC 35.4 RDW 15.4 D Plt Count 220 D MPV 7.7 Absolute Neuts (auto) 8.3 H Neutrophils % 71.4 D Lymphocytes % 15.5 D Monocytes % 8.4 Eosinophils % 4.3 Basophils % 0.4 Nucleated RBC % 0 Sodium 137 Potassium 3.8 Chloride 97 L Carbon Dioxide 34 H Anion Gap 7 L BUN 13 Creatinine 0.7 Creat Clearance w eGFR > 60 POC Glucometer Random Glucose 180 H Lactic Acid Calcium 8.6 Total Bilirubin 0.9 AST 39 H ALT 9 L Alkaline Phosphatase 238 H Creatine Kinase 29 Troponin I < 0.02 Total Protein 7.4 Albumin 2.1 L Urine Color Urine Appearance Urine pH Ur Specific [place] Urine Protein Urine Glucose (UA) Urine Ketones Urine Blood Urine Nitrite Urine Bilirubin Urine Urobilinogen Ur Leukocyte Esterase Influenza A (Rapid) Negative Influenza B (Rapid) Negative 06/28/18 06/28/18 06/28/18 18:32 18:32 21:22 WBC RBC Hgb Hct MCV MCH MCHC RDW Plt Count MPV Absolute Neuts (auto) Neutrophils % Lymphocytes % Monocytes % Eosinophils % Basophils % Nucleated RBC % Sodium Potassium Chloride Carbon Dioxide Anion Gap BUN Creatinine Creat Clearance w eGFR POC Glucometer 203 Random Glucose Lactic Acid 2.2 H* Calcium Total Bilirubin AST ALT Alkaline Phosphatase Creatine Kinase Troponin I Total Protein Albumin Urine Color Yellow Urine Appearance Clear Urine pH 7.0 Ur Specific [place] 1.011 Urine Protein Negative Urine Glucose (UA) Negative Urine Ketones Negative Urine Blood Negative Urine Nitrite Negative Urine Bilirubin Negative Urine Urobilinogen 4.0 e.u/dl H Ur Leukocyte Esterase Negative Influenza A (Rapid) Influenza B (Rapid) 06/28/18 23:45 WBC RBC Hgb Hct MCV MCH MCHC RDW Plt Count MPV Absolute Neuts (auto) Neutrophils % Lymphocytes % Monocytes % Eosinophils % Basophils % Nucleated RBC % Sodium Potassium Chloride Carbon Dioxide Anion Gap BUN Creatinine Creat Clearance w eGFR POC Glucometer 198 Random Glucose Lactic Acid Calcium Total Bilirubin AST ALT Alkaline Phosphatase Creatine Kinase Troponin I Total Protein Albumin Urine Color Urine Appearance Urine pH Ur Specific [place] Urine Protein Urine Glucose (UA) Urine Ketones Urine Blood Urine Nitrite Urine Bilirubin Urine Urobilinogen Ur Leukocyte Esterase Influenza A (Rapid) Influenza B (Rapid) Intake & Output 06/26/18 06/27/18 06/28/18 06/29/18 23:59 23:59 23:59 23:59 Weight 54.431 kg Imaging - Results Chest X-ray: Image Reviewed EKG: Image Reviewed (NSR) Problem List - Problems (1) Healthcare associated bacterial pneumonia Code(s): J15.9 - UNSPECIFIED BACTERIAL PNEUMONIA (2) Cough Code(s): R05 - COUGH (3) Coronary artery disease Code(s): I25.10 - ATHSCL HEART DISEASE OF [place] CORONARY ARTERY W/O ANG PCTRS Qualifiers: Coronary Disease-Associated Artery/Lesion type: [place] artery [place] vs. transplanted heart: [place] heart Associated angina: without angina Qualified Code(s): I25.10 - Atherosclerotic heart disease of [place] coronary artery without angina pectoris (4) Chronic ischemic heart disease Code(s): I25.9 - CHRONIC ISCHEMIC HEART DISEASE, UNSPECIFIED (5) Anxiety Code(s): F41.9 - ANXIETY DISORDER, UNSPECIFIED (6) Breast cancer Code(s): C50.919 - MALIGNANT NEOPLASM OF UNSP SITE OF UNSPECIFIED FEMALE BREAST (7) CVA (cerebral infarction) Code(s): I63.9 - CEREBRAL INFARCTION, UNSPECIFIED Qualifiers: Cerebral infarction mechanism: unspecified mechanism Qualified Code(s): I63.9 - Cerebral infarction, unspecified (8) Diabetes Code(s): E11.9 - TYPE 2 DIABETES MELLITUS WITHOUT COMPLICATIONS Qualifiers: Diabetes mellitus type: type 2 (9) Hyperlipidemia Code(s): E78.5 - HYPERLIPIDEMIA, UNSPECIFIED Qualifiers: Hyperlipidemia type: pure hypercholesterolemia Qualified Code(s): E78.00 - Pure hypercholesterolemia, unspecified; E78.0 - Pure hypercholesterolemia (10) Cirrhosis of liver Code(s): K74.60 - UNSPECIFIED CIRRHOSIS OF LIVER Qualifiers: Hepatic cirrhosis type: alcoholic cirrhosis Ascites presence: with ascites Qualified Code(s): K70.31 - Alcoholic cirrhosis of liver with ascites (11) Hypertension Code(s): I10 - ESSENTIAL (PRIMARY) HYPERTENSION (12) Low back pain Code(s): M54.5 - LOW BACK PAIN (13) S/P coronary artery stent placement Code(s): Z95.5 - PRESENCE OF CORONARY ANGIOPLASTY IMPLANT AND GRAFT Assessment/Plan This is a 77 y/o woman admitted for HAP for further evaluation of their emergent condition. Plan: Admit M/S Treat for HAP Blood Cultures-pending Sputum Culture-pending Urine Legionella- pending Urine Culture-pending UA- +4 urobilinogen Rapid Influenza- neg A+B Multiple ABX allergies Started on Vancomycin, Azetrenoam, will continue Appreciate ID consult Lactic Acid 2.2, will trend Fluid bolus O2 Duonebs prn +leukocytosis no shift- 2/2 HAP Monitor CBC, BMP Maintain MAP > 65 Continue home meds Fall Precautions FEN- PO fluids as tolerated, Replete lytes prn, Low Na, Diabetic Diet DVT ppx- OOB, SCDs, Heparin SQ Code Status: Full Code Dispo: Requires Inpatient Care Visit type - Emergency Visit Emergency Visit: Yes ED Registration Date: 06/28/18 Care time: The patient presented to the Emergency Department on the above date and was hospitalized for further evaluation of their emergent condition. - New Patient This patient is new to me today: Yes Date on this admission: 06/28/18 - Critical Care Critical Care patient: No
[2018-06-29] MEDS ORDERED: ACETAMINOPHEN 325 MG TABLET (FP) PO ONE (03:06)
[2018-06-29] MEDS: INSULIN SLIDING SCALE (NOVOLOG) 1 VIAL SQ SCH ×5 (07:30→21:21)
[2018-06-29] MEDS: FUROSEMIDE 40 MG TABLET (FP) PO SCH ×2 (07:53→14:48)
[2018-06-29] MEDS: CARBIDOPA/LEVODOPA 25/100 TABLET (FP) PO SCH ×3 (07:53→21:21)
[2018-06-29] MEDS: GABAPENTIN 100 MG CAPSULE (FP) PO SCH ×3 (07:53→21:21)
[2018-06-29 08:27] LABS: BASO % 0.6 % (0-2.0); EOS % 4.3 % (0-4.5); HEMATOCRIT 31.4 % (32.4-45.2); HEMOGLOBIN 11.2 GM/dL (10.7-15.3); LYMPH % 15.3 % (8-40); MCH 32.9 pg (25.7-33.7); MCHC 35.7 g/dl (32.0-36.0); MEAN PLT VOLUME 7.3 fl (7.5-11.1); MONO % 8.4 % (3.8-10.2); NEUT % 71.4 % (42.8-82.8); PLATELET COUNT 200 K/MM3 (134-434); RBC 3.41 M/mm3 (3.60-5.2); RDW 15.2 % (11.6-15.6); WHITE BLOOD COUNT 10.4 K/mm3 (4.0-10.0)
[2018-06-29] MEDS: ALBUTEROL SO4 2.5/IPRATROPIUM 0.5 INH SOL 3 ML VIAL.NEB. NEB SCH ×4 (08:38→20:48)
[2018-06-29] MEDS: BUDESONIDE 0.5 MG/2 ML INH SUSP VIAL NEB SCH ×2 (08:38→20:51)
[2018-06-29 09:03] LABS: ANION GAP 6 MMOL/L (8-16); BLOOD UREA NITROGEN 11 mg/dL (7-18); CALCIUM 8.7 mg/dL (8.5-10.1); CHLORIDE 99 mmol/L (98-107); CO2 31 mmol/L (21-32); CREATININE 0.6 mg/dL (0.55-1.3); GLUCOSE,RANDOM 137 mg/dL (74-106); POTASSIUM 3.4 mmol/L (3.5-5.1); SODIUM 136 mmol/L (136-145)
[2018-06-29] MEDS ORDERED: FLUTICASONE FUROATE 100 MCG IH SCH (10:00)
[2018-06-29] MEDS ORDERED: AZTREONAM 1 GM in DEXTROSE 5%-WATER - 50 ML IVPB SCH (10:00)
[2018-06-29] MEDS: POTASSIUM CHLORIDE ORAL LIQUID 20 MEQ/15 ML PO SCH (10:15)
[2018-06-29] MEDS: ESCITALOPRAM OXALATE 10 MG TABLET (FP) PO SCH (10:15)
[2018-06-29] MEDS: PANTOPRAZOLE 40 MG TABLET (FP) PO SCH (10:15)
[2018-06-29] MEDS: LOSARTAN POTASSIUM 25 MG TABLET PO SCH (10:15)
[2018-06-29] MEDS: HEPARIN NA (PORCINE) 5,000 UNITS/ML 1ML VIAL SQ SCH (10:15)
[2018-06-29] MEDS: ASPIRIN 81 MG CHEWABLE TABLETS PO SCH (10:15)
[2018-06-29] MEDS ORDERED: PT OWN MED DRAWER 7, Y5N ONE (11:26)
--- NOTE | 2018-06-29 11:59 | EKG ---
Test Reason : Blood Pressure : / mmHG Vent. Rate : 086 BPM Atrial Rate : 086 BPM P-R Int : 166 ms QRS Dur : 086 ms QT Int : 384 ms P-R-T Axes : 054 -20 065 degrees QTc Int : 459 ms POOR DATA QUALITY, INTERPRETATION MAY BE ADVERSELY AFFECTED NORMAL SINUS RHYTHM NORMAL ECG WHEN COMPARED WITH ECG OF 11-MAY-2018 08:56, NONSPECIFIC T WAVE ABNORMALITY NO LONGER EVIDENT IN INFERIOR LEADS T WAVE INVERSION NO LONGER EVIDENT IN ANTERIOR LEADS Confirmed by KEITH MIJARES MD ([id number]) on 06/29/2018 11:58:48 AM Referred By: Confirmed By:KEITH MIJARES MD
[2018-06-29] MEDS ORDERED: INSULIN (NOVOLOG) ASPART 100 UNITS/ML 10ML VIAL ONE ×2 (12:10→21:03)
[2018-06-29] MEDS: NORTRIPTYLINE HCL 25 MG CAPSULE PO SCH (12:19)
[2018-06-29] MEDS: NADOLOL 20 MG TABLET (FP) PO SCH (12:19)
[2018-06-29] MEDS: FLUDROCORTISONE ACETATE 0.1 MG TABLET (FP) PO SCH (12:19)
--- NOTE | 2018-06-29 13:22 | PN ---
Progress Note, Physician Chief Complaint: patient in bed - Current Medication List Current Medications: Active Medications Acetaminophen (Tylenol -) 650 mg PO Q6H PRN PRN Reason: PAIN LEVEL 4 - 6 Albuterol/Ipratropium (Duoneb -) 1 amp NEB RQID [facility] Last Admin: 06/29/18 12:06 Dose: 1 amp Aspirin (Asa -) 81 mg PO DAILY [facility] Last Admin: 06/29/18 10:15 Dose: 81 mg Atorvastatin Calcium (Lipitor -) 10 mg PO HS [facility] Budesonide (Pulmicort 0.5 Mg Nebulizer -) 1 amp NEB RBID [facility] Last Admin: 06/29/18 08:38 Dose: 1 amp Carbidopa/Levodopa (Sinemet 25/100 -) 1 each PO TID [facility] Last Admin: 06/29/18 07:53 Dose: 1 each Escitalopram Oxalate (Lexapro -) 10 mg PO DAILY [facility] Last Admin: 06/29/18 10:15 Dose: 10 mg Fludrocortisone Acetate (Florinef -) 0.1 mg PO DAILY [facility] Last Admin: 06/29/18 12:19 Dose: 0.1 mg Furosemide (Lasix -) 40 mg PO BIDLASIX [facility] Last Admin: 06/29/18 07:53 Dose: 40 mg Gabapentin (Neurontin -) 100 mg PO TID [facility] Last Admin: 06/29/18 07:53 Dose: 100 mg Heparin Sodium (Porcine) (Heparin -) 5,000 unit SQ BID [facility] Last Admin: 06/29/18 10:15 Dose: 5,000 unit Aztreonam 1 gm/ Dextrose 50 mls @ 100 mls/hr IVPB Q8H-IV [facility]; Protocol Aztreonam 1 gm/ Dextrose 50 mls @ 100 mls/hr IVPB Q8H-IV [facility]; Protocol Stop: 06/30/18 09:59 Last Admin: 06/29/18 10:54 Dose: 100 mls/hr Insulin Aspart (Novolog Vial Sliding Scale -) 1 vial SQ ACHS [facility]; Protocol Last Admin: 06/29/18 12:19 Dose: 6 units Insulin Detemir (Levemir Vial) 25 units SQ HS [facility] Losartan Potassium (Cozaar -) 25 mg PO DAILY [facility] Last Admin: 06/29/18 10:15 Dose: 25 mg Nadolol (Corgard -) 20 mg PO DAILY [facility] Last Admin: 06/29/18 12:19 Dose: 20 mg Non-Formulary Medication (Fluticasone Furoate [Arnuity Ellipta]) 100 mcg IH DAILY [facility] Nortriptyline HCl (Pamelor -) 25 mg PO DAILY [facility] Last Admin: 06/29/18 12:19 Dose: 25 mg Pantoprazole Sodium (Protonix -) 40 mg PO DAILY [facility] Last Admin: 06/29/18 10:15 Dose: 40 mg Potassium Chloride (Potassium Chloride Oral Liquid) 40 meq PO DAILY [facility] Last Admin: 06/29/18 10:15 Dose: 40 meq - Objective Vital Signs: Vital Signs Temperature 98.5 F 06/29/18 10:13 Pulse Rate 89 06/29/18 10:13 Respiratory Rate 20 06/29/18 10:13 Blood Pressure 118/70 06/29/18 10:13 O2 Sat by Pulse Oximetry (%) 94 L 06/29/18 06:40 Constitutional: Yes: Calm Cardiovascular: Yes: Regular Rate and Rhythm, S1, S2 Respiratory: Yes: Other (crackles) Gastrointestinal: Yes: Normal Bowel Sounds, Soft Edema: No Neurological: Yes: Alert Labs: CBC, BMP 06/29/18 08:00 06/29/18 08:00 Problem List - Problems (1) Healthcare associated bacterial pneumonia Assessment/Plan: id and pulm consult ct chest broad specutrum abx pcn,quinolones ,sulfa allergies dvt ppx Code(s): J15.9 - UNSPECIFIED BACTERIAL PNEUMONIA (2) Cough Assessment/Plan: see above Code(s): R05 - COUGH (3) Electrolyte abnormality Assessment/Plan: potasium repleted Code(s): E87.8 - OTH DISORDERS OF ELECTROLYTE AND FLUID BALANCE, NEC (4) Diabetes Assessment/Plan: sliding scale levemir Code(s): E11.9 - TYPE 2 DIABETES MELLITUS WITHOUT COMPLICATIONS Qualifiers: Diabetes mellitus type: type 2
--- NOTE | 2018-06-29 13:40 | PN ---
Progress Note (short form) - Note Progress Note: PULMONARY CONSULTATION DICTATED 06/29/18 IMP ACUTE HYPOXEMIC RESPIRATORY FAILURE PNEUMONIA COPD/ILD BRONCHIECTASIS PULMONARY NODULES H/O MAC HLD ASHD CIRRHOSIS H/O BREAST CA H/O CVA ELEVATED LACTATE LEVEL PLAN IV ABX O2 CULTURES INHALED BRONCHODILATORS SHORT COURSE OF MEDROL CHEST CT TREND LACTATE MONITOR LYTES F/U CHEST X-RAYS DR WESLEY Problem List - Problems (1) Pneumonia Code(s): J18.9 - PNEUMONIA, UNSPECIFIED ORGANISM (2) Asthma Code(s): J45.909 - UNSPECIFIED ASTHMA, UNCOMPLICATED Qualifiers: Asthma severity: unspecified severity Asthma complication type: uncomplicated (3) Breast cancer Code(s): C50.919 - MALIGNANT NEOPLASM OF UNSP SITE OF UNSPECIFIED FEMALE BREAST (4) CVA (cerebral infarction) Code(s): I63.9 - CEREBRAL INFARCTION, UNSPECIFIED Qualifiers: Cerebral infarction mechanism: unspecified mechanism Qualified Code(s): I63.9 - Cerebral infarction, unspecified (5) Coronary artery disease Code(s): I25.10 - ATHSCL HEART DISEASE OF [place] CORONARY ARTERY W/O ANG PCTRS Qualifiers: Coronary Disease-Associated Artery/Lesion type: [place] artery [place] vs. transplanted heart: [place] heart Associated angina: without angina Qualified Code(s): I25.10 - Atherosclerotic heart disease of [place] coronary artery without angina pectoris (6) Cough Code(s): R05 - COUGH (7) Dyspnea Code(s): R06.00 - DYSPNEA, UNSPECIFIED Qualifiers: Dyspnea type: shortness of breath Qualified Code(s): R06.02 - Shortness of breath (8) Hypertension Code(s): I10 - ESSENTIAL (PRIMARY) HYPERTENSION (9) Interstitial lung disease Code(s): J84.9 - INTERSTITIAL PULMONARY DISEASE, UNSPECIFIED (10) Pulmonary Mycobacterium avium complex (MAC) infection Code(s): A31.0 - PULMONARY MYCOBACTERIAL INFECTION (11) S/P coronary artery stent placement Code(s): Z95.5 - PRESENCE OF CORONARY ANGIOPLASTY IMPLANT AND GRAFT (12) Shortness of breath Code(s): R06.02 - SHORTNESS OF BREATH (13) Acute hypoxemic respiratory failure Code(s): J96.01 - ACUTE RESPIRATORY FAILURE WITH HYPOXIA
--- NOTE | 2018-06-29 16:22 | PN ---
Progress Note (short form) - Note Progress Note: ID CONSULT DICTATED RECURRENT PNEUMONIA EXACERBATION COPD HX MAC AWAIT C/S EMPIRIC CEFTAZIDIME/ ZITHROMAX MAY NEED RE-TREATMENT FOR MAC
[2018-06-29] MEDS: AZITHROMYCIN 250 MG TABLET PO SCH (17:21)
--- NOTE | 2018-06-29 17:37 | CONS ---
DATE OF CONSULTATION: DATE OF DICTATION: 06/29/2018 HISTORY OF PRESENT ILLNESS: The patient is a 77-year-old female with a history of COPD, recurrent pneumonia and a history of pulmonary MAC, now readmitted with recurrent pneumonia. She was admitted to the hospital on April 27, 2018 with worsening shortness of breath and a cough productive of brownish sputum. She was found to have worsening nodular infiltrates on chest x-ray. She was empirically treated with vancomycin and Azactam because of multiple antibiotic allergies. A CT scan has been ordered. The patient complains of cough productive of brownish sputum and shortness of breath. No reported fever or chills. No chest pain. Of note, the patient was diagnosed with pulmonary MAC in 2015. At that time, she was treated with a long course of therapy. She has been hospitalized at least twice in the last six months for recurrent pneumonia, in January and in April of 2018. One sputum specimen that was obtained for AFB in January was positive for MAC, so her sputum culture was positive for pseudomonas. PAST MEDICAL HISTORY: Positive for COPD, pulmonary MAC, diabetes mellitus, hypertension, stroke, hyperlipidemia, breast cancer, chronic liver disease. PAST SURGICAL HISTORY: Status post right total hip replacement. ALLERGIES: LEVAQUIN, PENICILLIN AND SULFA (rash was reported). She has tolerated cephalosporins in the past as well as Aztreonam. MEDICATIONS: Pulmicort, Florinef, Tylenol, Cozaar, Neurontin, Lexapro, Pamelor, Corgard, Sinemet, Lipitor, Lasix, aspirin, Protonix. SOCIAL HISTORY: She is [place] speaking. She is presently residing in a jail facility. Nonsmoker, nondrinker. REVIEW OF SYSTEMS: Neurologic: No loss of consciousness, seizure activity or focal weakness. Cardiac: Negative for chest pain or palpitations. Respiratory: As per HPI. Gastrointestinal: Negative for vomiting or diarrhea. Genitourinary: Negative for urinary tract infection. LABORATORY DATA: White count 10.4, hematocrit 31.3, platelet count 200, BUN 11, creatinine 0.6. Urinalysis negative. PHYSICAL EXAMINATION: General: The patient is slightly short of breath at rest in bed with nasal cannula. She has a productive cough. Vital Signs: Temperature 98.2, pulse 87 and regular, blood pressure 125/67, respiratory rate 21 per minute. HEENT:: Sclerae anicteric. Heart: Heart sounds S1, S2. Lungs: Coarse rhonchi bilaterally and crepitations throughout both lung ross. Abdomen: Soft and nontender. Extremities: Negative for edema. IMPRESSION: 1. Recurrent pneumonia. 2. Exacerbation of chronic obstructive pulmonary disease. 3. History of pulmonary MAC. PLAN: 1. Await cultures. Will empirically treat for healthcare-associated pneumonia as well as previously isolated pseudomonas with ceftazidime, 1 gram IV piggyback every 8 hours. 2. Will add Zithromax for coverage of atypical pathogens pending cultures. 3. Follow up CT scan. May require re-treatment for MAC. However, this is best done at a center where susceptibility testing can be done on her previous MAC isolate, given her potential need for a long course of antibiotic therapy and multiple comorbidities. JAY SAMUELS M.D. [id number]
[2018-06-29] MEDS: CEFTAZIDIME PENTAHYDRATE 1 GM in DEXTROSE 5%-WATER - 50 ML IVPB SCH (17:55)
[2018-06-29] MEDS ORDERED: ALBUTEROL SO4 0.083% IH SOL 2.5 MG/3 ML VIAL.NEB. NEB PRN (19:08)
--- NOTE | 2018-06-29 19:53 | CONS ---
DATE OF CONSULTATION: 06/29/2018 REFERRING PHYSICIAN: Jose Harman M.D. HISTORY OF PRESENT ILLNESS: The patient is a 77-year-old female known to me from previous hospitalizations, past medical history of COPD, interstitial lung disease, history of MAC, ASHD status post stents, CVA residual deficit, hypertension, breast CA, diabetes, anemia, anxiety, cirrhosis, admitted to [facility] secondary to cough, chest congestion, and hypoxemia. Apparently according to the [facility] residence, the patient has been having cough with thick, brown sputum for 7 days. Apparently on the day of admission there was increasing shortness of breath, congestion, noted to be hypoxic, at which time she was transferred to [facility] ER. In the ER, she had a chest x-ray performed which revealed possible pneumonia. She was admitted to the floor and started on broad-spectrum antibiotics. She is a nonsmoker. There is no history of occupational exposure to chemicals or fumes. PAST MEDICAL HISTORY: As stated before, past medical history again includes ASHD status post stents, hypertension, mycobacterium avium and intracellulare, CVA, residual deficits, breast CA, anemia, diabetes, anxiety, ascites, esophageal varices, history of banding, history of GI bleeds, peptic ulcer. REVIEW OF SYSTEMS: Positive cough. Positive shortness of breath. No fever. No chills. No hemoptysis. No abdominal pain. CURRENT MEDICATIONS: Include Pulmicort, , Tylenol, Cozaar, Zithromax, ceftazidime, heparin, Neurontin, Lexapro, Pamelor, DuoNeb, Corgard, Sinemet, Lipitor, Levemir, Lasix, aspirin, Protonix. PHYSICAL EXAMINATION: GENERAL: The patient is a well-developed, well-nourished female, awake, alert, currently in no acute distress. She is afebrile. VITAL SIGNS: Blood pressure 125/69, respiratory rate 20, O2 saturation 94% on 2 L. HEENT: Normocephalic, atraumatic. NECK: Supple. HEART: Regular S1, S2. CHEST: Bilateral rhonchi. ABDOMEN: Soft, bowel sounds positive. EXTREMITIES: No cyanosis, edema. LABORATORY: WBC 10.4, hemoglobin 11.2, hematocrit 31.4, platelet count 200,000. BUN 11, creatinine 0.6. Chest x-ray reveals diffuse interstitial and nodular changes bilaterally, possible superimposed infiltrate in right lung field. IMPRESSION: Acute hypoxemic respiratory failure secondary to: 1. Likely pneumonia. 2. Interstitial lung disease/bronchiectasis. 3. Pulmonary nodules. 4. History of metastases. 5. Arteriosclerotic heart disease status post stents. 6. History of cirrhosis. 7. History of breast carcinoma. 8. Elevated lactate level. 9. History of cerebrovascular accident. PLAN: IV antibiotics, supplemental O2. Cultures, inhaled steroid, short course Solu-Medrol, CT scan of chest, trend lactate, monitor electrolytes. EDI WESLEY M.D. [id number]
--- NOTE | 2018-06-29 21:16 | HOSP ---
Subjective - Review of Symptoms Events since last encounter: Hospitalist Encounter Notified via microblog by the RN, that the patient had an episode of hemoptysis , and was asked to evaluate the patient. Subjective: Arrived to bedside, patient is alert, awake and oriented, she had her nasal cannula off, was lying at the bedside in mild resp distress. Patient denies chest pain, palpitations. Observed the cup that contained a walnut sized blood clot. See EMR for PE Assessment: This is a 77 y/o woman from [facility] with a PMHx of CAD s/p Stents, HTN, CVA ( residual deficits), DM, Breast Ca, Anemia, Anxiety, Ascites (Alcohol Cirrhosis). Admitted for Pneumonia. Plan: Hold Heparin tonight Albuterol neb x1 now Continue nasal cannula with humidified O2 Continue to monitor overnight RN to inform PMD of overnights events Pulmonary: Yes: Other (hemoptysis) Physical Examination Vital Signs: Vital Signs Temperature 98.2 F 06/29/18 14:27 Pulse Rate 87 06/29/18 14:27 Respiratory Rate 21 H 06/29/18 14:27 Blood Pressure 125/69 06/29/18 14:27 O2 Sat by Pulse Oximetry (%) 96 06/29/18 09:00 Constitutional: Yes: Mild Distress Eyes: Yes: Conjunctiva Clear, PERRL Labs: CBC, BMP 06/29/18 08:00 06/29/18 08:00
[2018-06-29] MEDS ORDERED: ALBUTEROL SO4 0.083% IH SOL 2.5 MG/3 ML VIAL.NEB. NEB ONE (21:18)
[2018-06-29] MEDS: INSULIN (LEVEMIR) 100 UNITS/ML UNITS SQ SCH (21:20)
[2018-06-29] MEDS: methylPREDNISolone NA SUCC 40 MG/1 ML VIAL IVPUSH SCH (21:20)
[2018-06-29] MEDS: ATORVASTATIN CA 10 MG TABLET (FP) PO SCH (21:21)
[2018-06-30] MEDS: CEFTAZIDIME PENTAHYDRATE 1 GM in DEXTROSE 5%-WATER - 50 ML IVPB SCH ×3 (01:59→20:12)
[2018-06-30] MEDS: methylPREDNISolone NA SUCC 40 MG/1 ML VIAL IVPUSH SCH ×4 (01:59→22:46)
[2018-06-30] MEDS: GABAPENTIN 100 MG CAPSULE (FP) PO SCH ×3 (06:13→22:46)
[2018-06-30] MEDS: FUROSEMIDE 40 MG TABLET (FP) PO SCH ×2 (06:13→18:36)
[2018-06-30] MEDS: CARBIDOPA/LEVODOPA 25/100 TABLET (FP) PO SCH ×3 (06:14→22:46)
[2018-06-30] MEDS: INSULIN SLIDING SCALE (NOVOLOG) 1 VIAL SQ SCH ×4 (06:39→22:49)
[2018-06-30 07:27] LABS: EOS % 0.1 % (0-4.5); HEMATOCRIT 33.3 % (32.4-45.2); HEMOGLOBIN 11.9 GM/dL (10.7-15.3); LYMPH % 8.8 % (8-40); MCH 32.8 pg (25.7-33.7); MCHC 35.8 g/dl (32.0-36.0); MEAN CELL VOLUME 91.6 fl (80-96); MEAN PLT VOLUME 7.4 fl (7.5-11.1); MONO % 1.1 % (3.8-10.2); PLATELET COUNT 221 K/MM3 (134-434); RBC 3.64 M/mm3 (3.60-5.2); RDW 15.1 % (11.6-15.6); WHITE BLOOD COUNT 10.4 K/mm3 (4.0-10.0)
[2018-06-30] MEDS: ALBUTEROL SO4 2.5/IPRATROPIUM 0.5 INH SOL 3 ML VIAL.NEB. NEB SCH ×4 (07:30→21:00)
[2018-06-30] MEDS: BUDESONIDE 0.5 MG/2 ML INH SUSP VIAL NEB SCH ×2 (07:30→21:02)
[2018-06-30 07:50] LABS: ALBUMIN 2.1 g/dl (3.4-5.0); ALK PHOS 228 U/L (45-117); ANION GAP 8 MMOL/L (8-16); BILIRUBIN,TOTAL 1.1 mg/dL (0.2-1); BLOOD UREA NITROGEN 13 mg/dL (7-18); CALCIUM 9.1 mg/dL (8.5-10.1); CHLORIDE 97 mmol/L (98-107); CO2 31 mmol/L (21-32); CREATININE 0.8 mg/dL (0.55-1.3); GLUCOSE,RANDOM 251 mg/dL (74-106); POTASSIUM 3.7 mmol/L (3.5-5.1); SGOT/AST 28 U/L (15-37); SGPT/ALT 16 U/L (13-61); SODIUM 136 mmol/L (136-145); TOT PROT 7.8 g/dl (6.4-8.2)
[2018-06-30 08:46] LABS: INR 1.3 (0.83-1.09); PROTHROMBIN TIME (PATIENT) 15.4 SEC (9.7-13.0)
[2018-06-30 08:49] LABS: ACTIVATED PTT 37.5 SECONDS (25.2-36.5)
[2018-06-30] MEDS: POTASSIUM CHLORIDE ORAL LIQUID 20 MEQ/15 ML PO SCH (11:09)
[2018-06-30] MEDS: PANTOPRAZOLE 40 MG TABLET (FP) PO SCH (11:10)
[2018-06-30] MEDS: AZITHROMYCIN 250 MG TABLET PO SCH (11:10)
[2018-06-30] MEDS: LOSARTAN POTASSIUM 25 MG TABLET PO SCH (11:10)
[2018-06-30] MEDS: ESCITALOPRAM OXALATE 10 MG TABLET (FP) PO SCH (11:10)
[2018-06-30] MEDS: ASPIRIN 81 MG CHEWABLE TABLETS PO SCH (11:10)
[2018-06-30] MEDS: NADOLOL 20 MG TABLET (FP) PO SCH (11:12)
[2018-06-30] MEDS: HEPARIN NA (PORCINE) 5,000 UNITS/ML 1ML VIAL SQ SCH ×2 (11:13→22:44)
[2018-06-30] MEDS: FLUDROCORTISONE ACETATE 0.1 MG TABLET (FP) PO SCH (11:13)
[2018-06-30] MEDS: NORTRIPTYLINE HCL 25 MG CAPSULE PO SCH (11:14)
[2018-06-30] MEDS: ACETAMINOPHEN 325 MG TABLET (FP) PO PRN (11:51)
--- NOTE | 2018-06-30 12:22 | PN ---
Progress Note, Physician Chief Complaint: episode of hemoptysis last night h/h stable - Current Medication List Current Medications: Active Medications Acetaminophen (Tylenol -) 650 mg PO Q6H PRN PRN Reason: PAIN LEVEL 4 - 6 Last Admin: 06/30/18 11:51 Dose: 650 mg Albuterol Sulfate (Ventolin 0.083% Nebulizer Soln -) 1 amp NEB Q4H PRN PRN Reason: SHORT OF BREATH/WHEEZING Albuterol/Ipratropium (Duoneb -) 1 amp NEB RQID [facility] Last Admin: 06/30/18 11:30 Dose: 1 amp Aspirin (Asa -) 81 mg PO DAILY [facility] Last Admin: 06/30/18 11:10 Dose: 81 mg Atorvastatin Calcium (Lipitor -) 10 mg PO HS [facility] Last Admin: 06/29/18 21:21 Dose: 10 mg Azithromycin (Zithromax -) 500 mg PO DAILY [facility] Last Admin: 06/30/18 11:10 Dose: 500 mg Budesonide (Pulmicort 0.5 Mg Nebulizer -) 1 amp NEB RBID [facility] Last Admin: 06/30/18 07:30 Dose: 1 amp Carbidopa/Levodopa (Sinemet 25/100 -) 1 each PO TID [facility] Last Admin: 06/30/18 06:14 Dose: 1 each Escitalopram Oxalate (Lexapro -) 10 mg PO DAILY [facility] Last Admin: 06/30/18 11:10 Dose: 10 mg Fludrocortisone Acetate (Florinef -) 0.1 mg PO DAILY [facility] Last Admin: 06/30/18 11:13 Dose: 0.1 mg Furosemide (Lasix -) 40 mg PO BIDLASIX [facility] Last Admin: 06/30/18 06:13 Dose: 40 mg Gabapentin (Neurontin -) 100 mg PO TID [facility] Last Admin: 06/30/18 06:13 Dose: 100 mg Heparin Sodium (Porcine) (Heparin -) 5,000 unit SQ BID [facility] Last Admin: 06/30/18 11:13 Dose: 5,000 unit Ceftazidime 1 gm/ Dextrose 50 mls @ 100 mls/hr IVPB Q8H-IV [facility]; Protocol Last Admin: 06/30/18 11:13 Dose: 100 mls/hr Insulin Aspart (Novolog Vial Sliding Scale -) 1 vial SQ ACHS [facility]; Protocol Last Admin: 06/30/18 12:01 Dose: 8 unit Insulin Detemir (Levemir Vial) 25 units SQ HS [facility] Last Admin: 06/29/18 21:20 Dose: 25 units Losartan Potassium (Cozaar -) 25 mg PO DAILY [facility] Last Admin: 06/30/18 11:10 Dose: 25 mg Methylprednisolone Sodium Succinate (Solu-Medrol -) 40 mg IVPUSH Q6H-IV [facility] Last Admin: 06/30/18 11:12 Dose: 40 mg Nadolol (Corgard -) 20 mg PO DAILY [facility] Last Admin: 06/30/18 11:12 Dose: 20 mg Non-Formulary Medication (Fluticasone Furoate [Arnuity Ellipta]) 100 mcg IH DAILY [facility] Nortriptyline HCl (Pamelor -) 25 mg PO DAILY [facility] Last Admin: 06/30/18 11:14 Dose: 25 mg Pantoprazole Sodium (Protonix -) 40 mg PO DAILY [facility] Last Admin: 06/30/18 11:10 Dose: 40 mg Potassium Chloride (Potassium Chloride Oral Liquid) 40 meq PO DAILY [facility] Last Admin: 06/30/18 11:09 Dose: 40 meq - Objective Vital Signs: Vital Signs Temperature 99.4 F 06/30/18 02:00 Pulse Rate 50 L 06/30/18 02:00 Respiratory Rate 20 06/30/18 02:00 Blood Pressure 119/65 06/30/18 02:00 O2 Sat by Pulse Oximetry (%) 93 L 06/29/18 21:00 Constitutional: Yes: Calm Cardiovascular: Yes: Regular Rate and Rhythm, S1, S2 Respiratory: Yes: Other (crqackl;es) Gastrointestinal: Yes: Normal Bowel Sounds, Soft Edema: No Neurological: Yes: Alert Labs: CBC, BMP 06/30/18 06:00 06/30/18 06:00 INR, PTT INR 1.30 (0.83-1.09) H 06/30/18 07:45 Problem List - Problems (1) Healthcare associated bacterial pneumonia Assessment/Plan: id and pulm consult ct chest increase bilateral airspace disease with opacities broad specutrum abx pcn,quinolones ,sulfa allergies dvt ppx Code(s): J15.9 - UNSPECIFIED BACTERIAL PNEUMONIA (2) Cough Assessment/Plan: fortaz and azithromycin Microbiology 06/29/18 10:30 Urine For Antigen Detection Legionella Antigen - Final 06/29/18 10:30 Urine For Antigen Detection Streptococcus pneumoniae Antigen (M - Final 06/28/18 18:20 Urine - Urine Clean Catch Urine Culture - Final NO GROWTH OBTAINED 06/28/18 03:19 Sputum - Expectorated Gram Stain - Final 06/28/18 18:32 Blood - Peripheral Venous Blood Culture - Preliminary NO GROWTH OBTAINED AFTER 24 HOURS, INCUBATION TO CONTINUE FOR 4 DAYS. 06/28/18 18:20 Blood - Peripheral Venous Blood Culture - Preliminary NO GROWTH OBTAINED AFTER 24 HOURS, INCUBATION TO CONTINUE FOR 4 DAYS. 06/28/18 03:19 Sputum - Expectorated Sputum Culture - Preliminary Pseudomonas Species steroids iv 40 q6n Code(s): R05 - COUGH (3) Electrolyte abnormality Assessment/Plan: potasium repleted Code(s): E87.8 - OTH DISORDERS OF ELECTROLYTE AND FLUID BALANCE, NEC (4) Diabetes Assessment/Plan: sliding scale levemir Code(s): E11.9 - TYPE 2 DIABETES MELLITUS WITHOUT COMPLICATIONS Qualifiers: Diabetes mellitus type: type 2
[2018-06-30 13:36] VITALS: BMI 26.0
--- NOTE | 2018-06-30 14:04 | PN ---
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
--- NOTE | 2018-06-30 14:58 | PN ---
Progress Note, Physician History of Present Illness: PT AWAKENED FROM SLEEP EPISODE OF HEMOPTYSIS LAST NIGHT SLIGHTLY TACHYPNEIC AT REST ON NASAL CANNULA AFEBRILE ON STEROIDS SPUTUM C/S PSEUDOMONAS SP. LEGIONELLA/PNEUMOCOCCAL AG (-) BC (-) - Current Medication List Current Medications: Active Medications Acetaminophen (Tylenol -) 650 mg PO Q6H PRN PRN Reason: PAIN LEVEL 4 - 6 Last Admin: 06/30/18 11:51 Dose: 650 mg Albuterol Sulfate (Ventolin 0.083% Nebulizer Soln -) 1 amp NEB Q4H PRN PRN Reason: SHORT OF BREATH/WHEEZING Albuterol/Ipratropium (Duoneb -) 1 amp NEB RQID [facility] Last Admin: 06/30/18 11:30 Dose: 1 amp Aspirin (Asa -) 81 mg PO DAILY [facility] Last Admin: 06/30/18 11:10 Dose: 81 mg Atorvastatin Calcium (Lipitor -) 10 mg PO HS [facility] Last Admin: 06/29/18 21:21 Dose: 10 mg Azithromycin (Zithromax -) 500 mg PO DAILY [facility] Last Admin: 06/30/18 11:10 Dose: 500 mg Budesonide (Pulmicort 0.5 Mg Nebulizer -) 1 amp NEB RBID [facility] Last Admin: 06/30/18 07:30 Dose: 1 amp Carbidopa/Levodopa (Sinemet 25/100 -) 1 each PO TID [facility] Last Admin: 06/30/18 06:14 Dose: 1 each Escitalopram Oxalate (Lexapro -) 10 mg PO DAILY [facility] Last Admin: 06/30/18 11:10 Dose: 10 mg Fludrocortisone Acetate (Florinef -) 0.1 mg PO DAILY [facility] Last Admin: 06/30/18 11:13 Dose: 0.1 mg Furosemide (Lasix -) 40 mg PO BIDLASIX [facility] Last Admin: 06/30/18 06:13 Dose: 40 mg Gabapentin (Neurontin -) 100 mg PO TID [facility] Last Admin: 06/30/18 06:13 Dose: 100 mg Heparin Sodium (Porcine) (Heparin -) 5,000 unit SQ BID [facility] Last Admin: 06/30/18 11:13 Dose: 5,000 unit Ceftazidime 1 gm/ Dextrose 50 mls @ 100 mls/hr IVPB Q8H-IV [facility]; Protocol Last Admin: 06/30/18 11:13 Dose: 100 mls/hr Insulin Aspart (Novolog Vial Sliding Scale -) 1 vial SQ ACHS [facility]; Protocol Last Admin: 06/30/18 12:01 Dose: 8 unit Insulin Detemir (Levemir Vial) 25 units SQ HS [facility] Last Admin: 06/29/18 21:20 Dose: 25 units Losartan Potassium (Cozaar -) 25 mg PO DAILY [facility] Last Admin: 06/30/18 11:10 Dose: 25 mg Methylprednisolone Sodium Succinate (Solu-Medrol -) 40 mg IVPUSH Q6H-IV [facility] Last Admin: 06/30/18 11:12 Dose: 40 mg Nadolol (Corgard -) 20 mg PO DAILY [facility] Last Admin: 06/30/18 11:12 Dose: 20 mg Non-Formulary Medication (Fluticasone Furoate [Arnuity Ellipta]) 100 mcg IH DAILY [facility] Nortriptyline HCl (Pamelor -) 25 mg PO DAILY [facility] Last Admin: 06/30/18 11:14 Dose: 25 mg Pantoprazole Sodium (Protonix -) 40 mg PO DAILY [facility] Last Admin: 06/30/18 11:10 Dose: 40 mg Potassium Chloride (K-Dur -) 40 meq PO DAILY [facility] - Objective Vital Signs: Vital Signs Temperature 99.4 F 06/30/18 02:00 Pulse Rate 50 L 06/30/18 02:00 Respiratory Rate 20 06/30/18 02:00 Blood Pressure 119/65 06/30/18 02:00 O2 Sat by Pulse Oximetry (%) 93 L 06/29/18 21:00 Constitutional: Yes: No Distress Cardiovascular: Yes: Regular Rate and Rhythm, S1, S2 Respiratory: Yes: Other (+ COARSE RHONCHI AND RALES DIFFUSELY BOTH LUNG LEVY) Gastrointestinal: Yes: Normal Bowel Sounds, Soft. No: Tenderness Extremities: Yes: Other Edema: No Labs: CBC, BMP 06/30/18 06:00 06/30/18 06:00 INR, PTT INR 1.30 (0.83-1.09) H 06/30/18 07:45 Assessment/Plan WORSENING BILATERAL INFILTRATES ? PSEUDOMONAS ? MAC EXACERBATION COPD CHRONIC LIVER DISEASE CONTINUE EMPIRIC CEFTAZIDIME/ ZITHROMAX SPUTUM [employer]
[2018-06-30] MEDS: POTASSIUM CHLORIDE TABS 20 MEQ TABLET.ER (FP) PO SCH (18:35)
[2018-06-30] MEDS ORDERED: PT OWN MED DRAWER 7, Y5N ONE (19:12)
[2018-06-30] MEDS ORDERED: INSULIN (NOVOLOG) ASPART 100 UNITS/ML 10ML VIAL ONE (20:51)
[2018-06-30] MEDS: ATORVASTATIN CA 10 MG TABLET (FP) PO SCH (22:46)
[2018-06-30] MEDS: INSULIN (LEVEMIR) 100 UNITS/ML UNITS SQ SCH (22:50)
[2018-07-01] MEDS ORDERED: PT OWN MED DRAWER 7, Y5N ONE ×3 (00:28→16:58)
[2018-07-01] MEDS: methylPREDNISolone NA SUCC 40 MG/1 ML VIAL IVPUSH SCH ×4 (02:05→20:24)
[2018-07-01] MEDS: CEFTAZIDIME PENTAHYDRATE 1 GM in DEXTROSE 5%-WATER - 50 ML IVPB SCH ×3 (02:05→16:59)
[2018-07-01] MEDS: CARBIDOPA/LEVODOPA 25/100 TABLET (FP) PO SCH ×3 (06:54→22:05)
[2018-07-01] MEDS: INSULIN SLIDING SCALE (NOVOLOG) 1 VIAL SQ SCH ×4 (06:54→21:19)
[2018-07-01] MEDS: GABAPENTIN 100 MG CAPSULE (FP) PO SCH ×3 (06:54→22:05)
[2018-07-01] MEDS: FUROSEMIDE 40 MG TABLET (FP) PO SCH ×2 (06:54→14:11)
[2018-07-01] MEDS: ALBUTEROL SO4 2.5/IPRATROPIUM 0.5 INH SOL 3 ML VIAL.NEB. NEB SCH ×4 (07:01→20:50)
[2018-07-01] MEDS: BUDESONIDE 0.5 MG/2 ML INH SUSP VIAL NEB SCH ×2 (07:03→21:00)
[2018-07-01 08:53] LABS: ALK PHOS 205 U/L (45-117); ANION GAP 5 MMOL/L (8-16); BILIRUBIN,TOTAL 0.6 mg/dL (0.2-1); BLOOD UREA NITROGEN 18 mg/dL (7-18); CALCIUM 9.8 mg/dL (8.5-10.1); CHLORIDE 99 mmol/L (98-107); CO2 31 mmol/L (21-32); CREATININE 0.7 mg/dL (0.55-1.3); GLUCOSE,RANDOM 167 mg/dL (74-106); POTASSIUM 3.9 mmol/L (3.5-5.1); SGOT/AST 26 U/L (15-37); SGPT/ALT 7 U/L (13-61); SODIUM 136 mmol/L (136-145); TOT PROT 7.3 g/dl (6.4-8.2)
[2018-07-01] MEDS: HEPARIN NA (PORCINE) 5,000 UNITS/ML 1ML VIAL SQ SCH ×2 (09:23→22:05)
[2018-07-01] MEDS: LOSARTAN POTASSIUM 25 MG TABLET PO SCH (09:24)
[2018-07-01] MEDS: AZITHROMYCIN 250 MG TABLET PO SCH (09:24)
[2018-07-01] MEDS: PANTOPRAZOLE 40 MG TABLET (FP) PO SCH (09:25)
[2018-07-01] MEDS: POTASSIUM CHLORIDE TABS 20 MEQ TABLET.ER (FP) PO SCH (09:25)
[2018-07-01] MEDS: ESCITALOPRAM OXALATE 10 MG TABLET (FP) PO SCH (09:25)
[2018-07-01] MEDS: MULTIVITAMINS (DAILY MVI) TABLET (FP) PO SCH (09:25)
[2018-07-01] MEDS: NADOLOL 20 MG TABLET (FP) PO SCH (09:25)
[2018-07-01] MEDS: ASPIRIN 81 MG CHEWABLE TABLETS PO SCH (09:25)
[2018-07-01] MEDS: NORTRIPTYLINE HCL 25 MG CAPSULE PO SCH (09:26)
[2018-07-01] MEDS: FLUDROCORTISONE ACETATE 0.1 MG TABLET (FP) PO SCH (09:26)
[2018-07-01] MEDS ORDERED: INSULIN (NOVOLOG) ASPART 100 UNITS/ML 10ML VIAL ONE (11:37)
--- NOTE | 2018-07-01 15:00 | PN ---
Progress Note, Physician Chief Complaint: SOB Hemoptysis History of Present Illness: NAD On nasal O2 Seen by Pulmonary and ID Sputum + for pseudomonas-concern for pseudomonas MAC sputum AFB results pending - Current Medication List Current Medications: Active Medications Acetaminophen (Tylenol -) 650 mg PO Q6H PRN PRN Reason: PAIN LEVEL 4 - 6 Last Admin: 06/30/18 11:51 Dose: 650 mg Albuterol Sulfate (Ventolin 0.083% Nebulizer Soln -) 1 amp NEB Q4H PRN PRN Reason: SHORT OF BREATH/WHEEZING Albuterol/Ipratropium (Duoneb -) 1 amp NEB RQID [facility] Last Admin: 07/01/18 11:10 Dose: 1 amp Aspirin (Asa -) 81 mg PO DAILY [facility] Last Admin: 07/01/18 09:25 Dose: 81 mg Atorvastatin Calcium (Lipitor -) 10 mg PO HS [facility] Last Admin: 06/30/18 22:46 Dose: 10 mg Azithromycin (Zithromax -) 500 mg PO DAILY [facility] Last Admin: 07/01/18 09:24 Dose: 500 mg Budesonide (Pulmicort 0.5 Mg Nebulizer -) 1 amp NEB RBID [facility] Last Admin: 07/01/18 07:03 Dose: 1 amp Carbidopa/Levodopa (Sinemet 25/100 -) 1 each PO TID [facility] Last Admin: 07/01/18 14:12 Dose: 1 each Escitalopram Oxalate (Lexapro -) 10 mg PO DAILY [facility] Last Admin: 07/01/18 09:25 Dose: 10 mg Fludrocortisone Acetate (Florinef -) 0.1 mg PO DAILY [facility] Last Admin: 07/01/18 09:26 Dose: 0.1 mg Furosemide (Lasix -) 40 mg PO BIDLASIX [facility] Last Admin: 07/01/18 14:11 Dose: 40 mg Gabapentin (Neurontin -) 100 mg PO TID [facility] Last Admin: 07/01/18 14:12 Dose: 100 mg Heparin Sodium (Porcine) (Heparin -) 5,000 unit SQ BID [facility] Last Admin: 07/01/18 09:23 Dose: 5,000 unit Ceftazidime 1 gm/ Dextrose 50 mls @ 100 mls/hr IVPB Q8H-IV [facility]; Protocol Last Admin: 07/01/18 09:25 Dose: 100 mls/hr Insulin Aspart (Novolog Vial Sliding Scale -) 1 vial SQ ACHS [facility]; Protocol Last Admin: 07/01/18 11:52 Dose: 6 unit Insulin Detemir (Levemir Vial) 25 units SQ HS [facility] Last Admin: 06/30/18 22:50 Dose: 25 units Losartan Potassium (Cozaar -) 25 mg PO DAILY [facility] Last Admin: 07/01/18 09:24 Dose: 25 mg Methylprednisolone Sodium Succinate (Solu-Medrol -) 40 mg IVPUSH Q6H-IV [facility] Last Admin: 07/01/18 14:12 Dose: 40 mg Multivitamins/Minerals/Vitamin C (Tab-A-Vit -) 1 tab PO DAILY [facility] Last Admin: 07/01/18 09:25 Dose: 1 tab Nadolol (Corgard -) 20 mg PO DAILY [facility] Last Admin: 07/01/18 09:25 Dose: 20 mg Non-Formulary Medication (Fluticasone Furoate [Arnuity Ellipta]) 100 mcg IH DAILY [facility] Nortriptyline HCl (Pamelor -) 25 mg PO DAILY [facility] Last Admin: 07/01/18 09:26 Dose: 25 mg Pantoprazole Sodium (Protonix -) 40 mg PO DAILY [facility] Last Admin: 07/01/18 09:25 Dose: 40 mg Potassium Chloride (K-Dur -) 40 meq PO DAILY [facility] Last Admin: 07/01/18 09:25 Dose: 40 meq - Objective Vital Signs: Vital Signs Temperature 97.7 F 07/01/18 14:05 Pulse Rate 92 H 07/01/18 14:05 Respiratory Rate 18 07/01/18 14:05 Blood Pressure 125/63 07/01/18 14:05 O2 Sat by Pulse Oximetry (%) 93 L 07/01/18 09:00 Constitutional: Yes: Well Nourished, No Distress, Calm Cardiovascular: Yes: Regular Rate and Rhythm Respiratory: Yes: Regular Genitourinary: Yes: WNL Musculoskeletal: Yes: WNL Extremities: Yes: WNL Edema: No Peripheral Pulses WNL: Yes Neurological: Yes: Alert, Oriented Psychiatric: Yes: Alert, Oriented Labs: CBC, BMP 06/30/18 06:00 07/01/18 07:50 INR, PTT INR 1.30 (0.83-1.09) H 06/30/18 07:45 Problem List - Problems (1) Diabetes Assessment/Plan: -BGM AC HS -Last a1c at 6.8 -Diabetic diet -Novolog sliding scale -Levemir Code(s): E11.9 - TYPE 2 DIABETES MELLITUS WITHOUT COMPLICATIONS Qualifiers: Diabetes mellitus type: type 2 (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 06/28/18 18:20 Blood - Peripheral Venous Blood Culture - Preliminary NO GROWTH OBTAINED AFTER 48 HOURS, INCUBATION TO CONTINUE FOR 3 DAYS. 06/29/18 10:30 Urine For Antigen Detection Legionella Antigen - Final 06/29/18 10:30 Urine For Antigen Detection Streptococcus pneumoniae Antigen (M - Final 06/28/18 18:20 Urine - Urine Clean Catch Urine Culture - Final NO GROWTH OBTAINED Code(s): A31.0 - PULMONARY MYCOBACTERIAL INFECTION (3) Anxiety Code(s): F41.9 - ANXIETY DISORDER, UNSPECIFIED (4) Hypokalemia Assessment/Plan: -resolved -monitor trend Code(s): E87.6 - HYPOKALEMIA Assessment/Plan see problem list Physical therapy
--- NOTE | 2018-07-01 15:18 | PN ---
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 [place] [facility] O2 SPUTUMS FOR AFB INHALED BRONCHODILATORS SHORT COURSE OF MEDROL TREND LACTATE MONITOR LYTES F/U CHEST X-RAYS Omega AMARO MD
[2018-07-01] MEDS: ACETAMINOPHEN 325 MG TABLET (FP) PO PRN (20:00)
--- NOTE | 2018-07-01 20:31 | CONSULT ---
Consult Consult Specialty:: endocrine Referred by:: audrey harding Reason for Consultation:: diabetes mellitus - History of Present Illness Chief Complaint: high sugars History of Present Illness: 77 y/o woman from [facility] with a PMHx of DM 2 CAD s/p Stents, HTN, CVA ( residual deficits), Breast Ca, Anemia, Anxiety, Ascites (Alcohol Cirrhosis). Who presents to the ED for evaluation of productive cough- brown phlegm, chest congestion and hypoxia 88% at [place]. she has back pain,cough and congestion. Patient denies low sugar,fever, chills, MEI, dizziness, CP, or palpitations. 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 poor prep in past.), Stent (cardiac), Tonsillectomy, Upper Endoscopy (h/o esoph varices. on nadalol. s/p banding. due to surveillance egd in 04/10/15) - Alcohol/Substance Use Hx Alcohol Use: No History of Substance Use: reports: None - Smoking History Smoking history: Never smoked Have you smoked in the past 12 months: No Aproximately how many cigarettes per day: 0 If you are a former smoker, when did you quit?: over 30 years ago - Social History Usual Living Arrangement: Alone ADL: Support Services History of Recent Travel: Yes Home Medications - Allergies Allergies/Adverse Reactions: Allergies Allergy/AdvReac Type Severity Reaction Status Date / Time levofloxacin [From Levaquin] Allergy Intermediate Rash Verified 06/28/18 17:22 Penicillins Allergy Rash Verified 06/28/18 17:22 sulfamethoxazole AdvReac Intermediate Verified 06/28/18 17:22 [From Bactrim] trimethoprim [From Bactrim] AdvReac Intermediate Verified 06/28/18 17:22 - Home Medications Home Medications: Ambulatory Orders Aspirin [ASA -] 81 mg PO DAILY 10/09/14 Nadolol [Corgard -] 20 mg PO DAILY tablet 09/05/17 Escitalopram Oxalate [Lexapro -] 10 mg PO DAILY 01/24/18 Fludrocortisone Acetate [Florinef -] 0.1 mg PO DAILY 01/24/18 Fluticasone Furoate [Arnuity Ellipta] 100 mcg IH DAILY 01/24/18 Pantoprazole Sodium [Protonix] 40 mg PO DAILY 01/24/18 Atorvastatin Calcium [Lipitor] 10 mg PO HS 05/07/18 Insulin (Levemir) [Levemir Vial] 25 units SQ HS 05/07/18 Nortriptyline HCl [Pamelor -] 25 mg PO DAILY 05/07/18 Acetaminophen [Tylenol .Regular Strength -] 650 mg PO Q6H PRN tablet 05/13/18 Budesonide [Pulmicort 0.5 mg Nebulizer -] 1 amp NEB RBID amp 05/13/18 Carbidopa/Levodopa 25/100 [Sinemet 25/100 -] 1 each PO TID tablet 05/13/18 Furosemide [Lasix] 40 mg PO BID #60 tablet 05/13/18 Gabapentin [Neurontin -] 100 mg PO TID capsule 05/13/18 Heparin - 5,000 unit SQ BID vial 05/13/18 Insulin Sliding Scale [Novolog Vial Sliding Scale -] 1 vial SQ ACHS units 05/13 Losartan Potassium [Cozaar -] 25 mg PO DAILY tablet 05/13/18 Potassium Chloride [Potassium Chloride Oral Liquid] 40 meq PO DAILY cup Ipratropium/Albuterol Sulfate [Iprat-Albut 0.5-3(2.5) mg/3 ml] 3 ml IH Q6H 06/28 Nystatin Cream [Mycostatin] 1 applic TP BID 06/28/18 Zinc Oxide 20% Topical Oint 454 gm NR ASDIR 06/28/18 Family Disease History - Family Disease History Family Disease History: Diabetes: Brother (4 brothers), Other: Father ( 80's: unclear cancer), Mother ( 90's, unclear cause), Brother, Sister ( 7 sisters), Son (3, 1 : does not recall cause), Daughter (3) Review of Systems - Review of Systems Constitutional: reports: Loss of Appetite Eyes: reports: No Symptoms HENT: reports: No Symptoms Cardiovascular: reports: Shortness of Breath Respiratory: reports: Exercise Intolerance, SOB on Exertion Gastrointestinal: reports: Bloating, Constipation Genitourinary: reports: No Symptoms Breasts: reports: No Symptoms Reported Integumentary: reports: No Symptoms Neurological: reports: Numbness Endocrine: reports: No Symptoms Physical Exam Vital Signs: Vital Signs Temperature 97.3 F L 07/01/18 18:05 Pulse Rate 89 07/01/18 19:59 Respiratory Rate 20 07/01/18 19:59 Blood Pressure 129/67 07/01/18 19:59 O2 Sat by Pulse Oximetry (%) 93 L 07/01/18 09:00 Constitutional: Yes: Anxious Eyes: Yes: EOM Intact HENT: Yes: Normocephalic Neck: Yes: Trachea Midline Cardiovascular: Yes: Tachycardia Respiratory: Yes: On Nasal O2 Gastrointestinal: Yes: Normal Bowel Sounds Musculoskeletal: Yes: WNL Extremities: Yes: WNL Edema: No Neurological: Yes: Alert Labs: CBC, BMP 06/30/18 06:00 07/01/18 07:50 Problem List - Problems (1) Acute hypoxemic respiratory failure Code(s): J96.01 - ACUTE RESPIRATORY FAILURE WITH HYPOXIA (2) Pneumonia Code(s): J18.9 - PNEUMONIA, UNSPECIFIED ORGANISM (3) Angina pectoris Code(s): I20.9 - ANGINA PECTORIS, UNSPECIFIED (4) Anterior epistaxis Code(s): R04.0 - EPISTAXIS (5) Back pain Code(s): M54.9 - DORSALGIA, UNSPECIFIED (6) Diabetes Code(s): E11.9 - TYPE 2 DIABETES MELLITUS WITHOUT COMPLICATIONS Qualifiers: Diabetes mellitus type: type 2 Assessment/Plan Current Active Problems Acute hypoxemic respiratory failure (Acute) Healthcare associated bacterial pneumonia (Acute) Pneumonia (Acute) diabetes mellitus hyperglycemia diabetic neuropathy Abnormal Lab Results 07/01/18 07:50 Anion Gap 5 L Random Glucose 167 H ALT 7 L Alkaline Phosphatase 205 H Albumin 2.0 L Laboratory Results - last 24 hr 02/22/19 02/23/19 02/23/19 22:48 06:53 07:50 Sodium 136 Potassium 3.9 Chloride 99 Carbon Dioxide 31 Anion Gap 5 L BUN 18 Creatinine 0.7 Creat Clearance w eGFR > 60 POC Glucometer 291 158 Random Glucose 167 H Calcium 9.8 Total Bilirubin 0.6 AST 26 ALT 7 L Alkaline Phosphatase 205 H Total Protein 7.3 Albumin 2.0 L 07/01/18 07/01/18 11:34 16:21 Sodium Potassium Chloride Carbon Dioxide Anion Gap BUN Creatinine Creat Clearance w eGFR POC Glucometer 299 341 Random Glucose Calcium Total Bilirubin AST ALT Alkaline Phosphatase Total Protein Albumin plan: bgm qid novolog insulin levemir 35 units am levemir 10 units hs ck [id number]
[2018-07-01] MEDS ORDERED: INSULIN (LEVEMIR) 100 UNITS/ML UNITS SQ SCH ×2 (20:38→22:00)
[2018-07-01] MEDS: ATORVASTATIN CA 10 MG TABLET (FP) PO SCH (22:05)
[2018-07-02] MEDS ORDERED: MELATONIN 5 MG TABLETS PO ONE ×2 (00:42→01:45)
[2018-07-02] MEDS: ACETAMINOPHEN 325 MG TABLET (FP) PO PRN (02:00)
[2018-07-02] MEDS: CEFTAZIDIME PENTAHYDRATE 1 GM in DEXTROSE 5%-WATER - 50 ML IVPB SCH ×3 (02:13→17:13)
[2018-07-02] MEDS: methylPREDNISolone NA SUCC 40 MG/1 ML VIAL IVPUSH SCH ×4 (02:58→21:28)
[2018-07-02] MEDS: FUROSEMIDE 40 MG TABLET (FP) PO SCH ×2 (05:33→14:26)
[2018-07-02] MEDS: CARBIDOPA/LEVODOPA 25/100 TABLET (FP) PO SCH ×3 (05:34→21:38)
[2018-07-02] MEDS: GABAPENTIN 100 MG CAPSULE (FP) PO SCH ×3 (05:34→21:38)
[2018-07-02] MEDS: INSULIN SLIDING SCALE (NOVOLOG) 1 VIAL SQ SCH ×4 (06:02→21:39)
[2018-07-02] MEDS ORDERED: INSULIN (LEVEMIR) 100 UNITS/ML UNITS SQ SCH (07:00)
[2018-07-02] MEDS: ALBUTEROL SO4 2.5/IPRATROPIUM 0.5 INH SOL 3 ML VIAL.NEB. NEB SCH ×4 (08:16→19:45)
[2018-07-02] MEDS: BUDESONIDE 0.5 MG/2 ML INH SUSP VIAL NEB SCH ×2 (08:17→20:05)
[2018-07-02] MEDS: HEPARIN NA (PORCINE) 5,000 UNITS/ML 1ML VIAL SQ SCH ×2 (10:08→22:07)
[2018-07-02] MEDS: POTASSIUM CHLORIDE TABS 20 MEQ TABLET.ER (FP) PO SCH (10:09)
[2018-07-02] MEDS: AZITHROMYCIN 250 MG TABLET PO SCH (10:09)
[2018-07-02] MEDS: ASPIRIN 81 MG CHEWABLE TABLETS PO SCH (10:09)
[2018-07-02] MEDS: MULTIVITAMINS (DAILY MVI) TABLET (FP) PO SCH (10:09)
[2018-07-02] MEDS: LOSARTAN POTASSIUM 25 MG TABLET PO SCH (10:09)
[2018-07-02] MEDS: ESCITALOPRAM OXALATE 10 MG TABLET (FP) PO SCH (10:09)
[2018-07-02] MEDS: NADOLOL 20 MG TABLET (FP) PO SCH (10:23)
[2018-07-02] MEDS: PANTOPRAZOLE 40 MG TABLET (FP) PO SCH (10:23)
[2018-07-02] MEDS: NORTRIPTYLINE HCL 25 MG CAPSULE PO SCH (10:23)
[2018-07-02] MEDS: FLUDROCORTISONE ACETATE 0.1 MG TABLET (FP) PO SCH (10:23)
[2018-07-02] MEDS ORDERED: guaiFENesin/D-M SUGAR-FREE/ACLHOL-FREE 118 ML BOTTLE PO PRN (11:28)
[2018-07-02] MEDS ORDERED: BENZOCAINE/MENTH/CETYLPYRD CL 1 EACH LOZENGE MM PRN (11:28)
--- NOTE | 2018-07-02 11:28 | PN ---
Progress Note, Physician Chief Complaint: SOB Hemoptysis History of Present Illness: NAD On nasal O2 Seen by Pulmonary and ID Sputum + for pseudomonas-concern for pseudomonas MAC sputum AFB results pending - Current Medication List Current Medications: Active Medications Acetaminophen (Tylenol -) 650 mg PO Q6H PRN PRN Reason: PAIN LEVEL 4 - 6 Last Admin: 07/02/18 02:00 Dose: 650 mg Albuterol Sulfate (Ventolin 0.083% Nebulizer Soln -) 1 amp NEB Q4H PRN PRN Reason: SHORT OF BREATH/WHEEZING Albuterol/Ipratropium (Duoneb -) 1 amp NEB RQID [facility] Last Admin: 07/02/18 11:15 Dose: 1 amp Aspirin (Asa -) 81 mg PO DAILY [facility] Last Admin: 07/02/18 10:09 Dose: 81 mg Atorvastatin Calcium (Lipitor -) 10 mg PO HS [facility] Last Admin: 07/01/18 22:05 Dose: 10 mg Azithromycin (Zithromax -) 500 mg PO DAILY [facility] Last Admin: 07/02/18 10:09 Dose: 500 mg Budesonide (Pulmicort 0.5 Mg Nebulizer -) 1 amp NEB RBID [facility] Last Admin: 07/02/18 08:17 Dose: 1 amp Carbidopa/Levodopa (Sinemet 25/100 -) 1 each PO TID [facility] Last Admin: 07/02/18 05:34 Dose: 1 each Escitalopram Oxalate (Lexapro -) 10 mg PO DAILY [facility] Last Admin: 07/02/18 10:09 Dose: 10 mg Fludrocortisone Acetate (Florinef -) 0.1 mg PO DAILY [facility] Last Admin: 07/02/18 10:23 Dose: 0.1 mg Furosemide (Lasix -) 40 mg PO BIDLASIX [facility] Last Admin: 07/02/18 05:33 Dose: 40 mg Gabapentin (Neurontin -) 100 mg PO TID [facility] Last Admin: 07/02/18 05:34 Dose: 100 mg Heparin Sodium (Porcine) (Heparin -) 5,000 unit SQ BID [facility] Last Admin: 07/02/18 10:08 Dose: 5,000 unit Ceftazidime 1 gm/ Dextrose 50 mls @ 100 mls/hr IVPB Q8H-IV [facility]; Protocol Last Admin: 07/02/18 10:08 Dose: 100 mls/hr Insulin Aspart (Novolog Vial Sliding Scale -) 1 vial SQ ACHS [facility]; Protocol Last Admin: 07/02/18 11:23 Dose: 10 units Insulin Detemir (Levemir Vial) 35 units SQ AM [facility] Last Admin: 07/02/18 06:02 Dose: 35 units Insulin Detemir (Levemir Vial) 10 units SQ HS [facility] Last Admin: 07/01/18 21:18 Dose: 10 units Losartan Potassium (Cozaar -) 25 mg PO DAILY [facility] Last Admin: 07/02/18 10:09 Dose: 25 mg Methylprednisolone Sodium Succinate (Solu-Medrol -) 40 mg IVPUSH Q6H-IV [facility] Last Admin: 07/02/18 10:08 Dose: 40 mg Multivitamins/Minerals/Vitamin C (Tab-A-Vit -) 1 tab PO DAILY [facility] Last Admin: 07/02/18 10:09 Dose: 1 tab Nadolol (Corgard -) 20 mg PO DAILY [facility] Last Admin: 07/02/18 10:23 Dose: 20 mg Non-Formulary Medication (Fluticasone Furoate [Arnuity Ellipta]) 100 mcg IH DAILY [facility] Nortriptyline HCl (Pamelor -) 25 mg PO DAILY [facility] Last Admin: 07/02/18 10:23 Dose: 25 mg Pantoprazole Sodium (Protonix -) 40 mg PO DAILY [facility] Last Admin: 07/02/18 10:23 Dose: 40 mg Potassium Chloride (K-Dur -) 40 meq PO DAILY [facility] Last Admin: 07/02/18 10:09 Dose: 40 meq - Objective Vital Signs: Vital Signs Temperature 97.6 F 07/02/18 06:00 Pulse Rate 84 07/02/18 06:00 Respiratory Rate 20 07/02/18 06:00 Blood Pressure 133/75 07/02/18 06:00 O2 Sat by Pulse Oximetry (%) 94 L 07/01/18 21:00 Constitutional: Yes: Well Nourished, No Distress, Calm Cardiovascular: Yes: Regular Rate and Rhythm Respiratory: Yes: Regular Gastrointestinal: Yes: Normal Bowel Sounds, Soft Genitourinary: Yes: WNL Musculoskeletal: Yes: Muscle Weakness Extremities: Yes: WNL Edema: No Peripheral Pulses WNL: Yes Neurological: Yes: Alert, Pre-Existing Deficit Psychiatric: Yes: Alert Labs: CBC, BMP 06/30/18 06:00 07/01/18 07:50 INR, PTT INR 1.30 (0.83-1.09) H 06/30/18 07:45 Problem List - Problems (1) Diabetes Assessment/Plan: -BGM AC HS -Last a1c at 6.8 -Diabetic diet -Novolog sliding scale -Levemir Code(s): E11.9 - TYPE 2 DIABETES MELLITUS WITHOUT COMPLICATIONS Qualifiers: Diabetes mellitus type: type 2 (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 06/28/18 18:20 Blood - Peripheral Venous Blood Culture - Preliminary NO GROWTH OBTAINED AFTER 48 HOURS, INCUBATION TO CONTINUE FOR 3 DAYS. 06/29/18 10:30 Urine For Antigen Detection Legionella Antigen - Final 06/29/18 10:30 Urine For Antigen Detection Streptococcus pneumoniae Antigen (M - Final 06/28/18 18:20 Urine - Urine Clean Catch Urine Culture - Final NO GROWTH OBTAINED Code(s): A31.0 - PULMONARY MYCOBACTERIAL INFECTION (3) Anxiety Code(s): F41.9 - ANXIETY DISORDER, UNSPECIFIED (4) Hypokalemia Assessment/Plan: -resolved -monitor trend Code(s): E87.6 - HYPOKALEMIA Assessment/Plan see problem list Physical therapy
--- NOTE | 2018-07-02 12:22 | PN ---
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
--- NOTE | 2018-07-02 12:31 | PN ---
Progress Note, Physician Chief Complaint: dyspnea at rest hyperglycemia - Current Medication List Current Medications: Active Medications Acetaminophen (Tylenol -) 650 mg PO Q6H PRN PRN Reason: PAIN LEVEL 4 - 6 Last Admin: 07/02/18 02:00 Dose: 650 mg Albuterol Sulfate (Ventolin 0.083% Nebulizer Soln -) 1 amp NEB Q4H PRN PRN Reason: SHORT OF BREATH/WHEEZING Albuterol/Ipratropium (Duoneb -) 1 amp NEB RQID [facility] Last Admin: 07/02/18 11:15 Dose: 1 amp Aspirin (Asa -) 81 mg PO DAILY [facility] Last Admin: 07/02/18 10:09 Dose: 81 mg Atorvastatin Calcium (Lipitor -) 10 mg PO HS [facility] Last Admin: 07/01/18 22:05 Dose: 10 mg Azithromycin (Zithromax -) 500 mg PO DAILY [facility] Last Admin: 07/02/18 10:09 Dose: 500 mg Benzocaine/Menthol (Cepacol Lozenge -) 1 each MM PRN PRN PRN Reason: SORE THROAT Budesonide (Pulmicort 0.5 Mg Nebulizer -) 1 amp NEB RBID [facility] Last Admin: 07/02/18 08:17 Dose: 1 amp Carbidopa/Levodopa (Sinemet 25/100 -) 1 each PO TID [facility] Last Admin: 07/02/18 05:34 Dose: 1 each Escitalopram Oxalate (Lexapro -) 10 mg PO DAILY [facility] Last Admin: 07/02/18 10:09 Dose: 10 mg Fludrocortisone Acetate (Florinef -) 0.1 mg PO DAILY [facility] Last Admin: 07/02/18 10:23 Dose: 0.1 mg Furosemide (Lasix -) 40 mg PO BIDLASIX [facility] Last Admin: 07/02/18 05:33 Dose: 40 mg Gabapentin (Neurontin -) 100 mg PO TID [facility] Last Admin: 07/02/18 05:34 Dose: 100 mg Guaifenesin (Diabetic Tussin Dm -) 10 ml PO Q4H PRN PRN Reason: COUGH Heparin Sodium (Porcine) (Heparin -) 5,000 unit SQ BID [facility] Last Admin: 07/02/18 10:08 Dose: 5,000 unit Ceftazidime 1 gm/ Dextrose 50 mls @ 100 mls/hr IVPB Q8H-IV [facility]; Protocol Last Admin: 07/02/18 10:08 Dose: 100 mls/hr Insulin Aspart (Novolog Vial Sliding Scale -) 1 vial SQ ACHS [facility]; Protocol Last Admin: 07/02/18 11:23 Dose: 10 units Insulin Detemir (Levemir Vial) 35 units SQ AM [facility] Last Admin: 07/02/18 06:02 Dose: 35 units Insulin Detemir (Levemir Vial) 10 units SQ HS [facility] Last Admin: 07/01/18 21:18 Dose: 10 units Losartan Potassium (Cozaar -) 25 mg PO DAILY [facility] Last Admin: 07/02/18 10:09 Dose: 25 mg Methylprednisolone Sodium Succinate (Solu-Medrol -) 40 mg IVPUSH Q6H-IV [facility] Last Admin: 07/02/18 10:08 Dose: 40 mg Multivitamins/Minerals/Vitamin C (Tab-A-Vit -) 1 tab PO DAILY [facility] Last Admin: 07/02/18 10:09 Dose: 1 tab Nadolol (Corgard -) 20 mg PO DAILY [facility] Last Admin: 07/02/18 10:23 Dose: 20 mg Non-Formulary Medication (Fluticasone Furoate [Arnuity Ellipta]) 100 mcg IH DAILY [facility] Nortriptyline HCl (Pamelor -) 25 mg PO DAILY [facility] Last Admin: 07/02/18 10:23 Dose: 25 mg Pantoprazole Sodium (Protonix -) 40 mg PO DAILY [facility] Last Admin: 07/02/18 10:23 Dose: 40 mg Potassium Chloride (K-Dur -) 40 meq PO DAILY [facility] Last Admin: 07/02/18 10:09 Dose: 40 meq - Objective Vital Signs: Vital Signs Temperature 97.6 F 07/02/18 06:00 Pulse Rate 84 07/02/18 06:00 Respiratory Rate 20 07/02/18 06:00 Blood Pressure 133/75 07/02/18 06:00 O2 Sat by Pulse Oximetry (%) 94 L 07/01/18 21:00 Constitutional: Yes: Anxious Eyes: Yes: EOM Intact HENT: Yes: Normocephalic Neck: Yes: Trachea Midline Cardiovascular: Yes: Tachycardia Respiratory: Yes: On Nasal O2, Rhonchi, SOB, Tachypnea Gastrointestinal: Yes: Normal Bowel Sounds ...Rectal Exam: Yes: Deferred Genitourinary: Yes: WNL Musculoskeletal: Yes: Back Pain, Joint Swelling, Muscle Weakness Edema: No Neurological: Yes: Alert, Numbness, Tingling, Weakness Labs: CBC, BMP 06/30/18 06:00 07/01/18 07:50 INR, PTT INR 1.30 (0.83-1.09) H 06/30/18 07:45 Problem List - Problems (1) Acute hypoxemic respiratory failure Code(s): J96.01 - ACUTE RESPIRATORY FAILURE WITH HYPOXIA (2) Pneumonia Code(s): J18.9 - PNEUMONIA, UNSPECIFIED ORGANISM (3) Angina pectoris Code(s): I20.9 - ANGINA PECTORIS, UNSPECIFIED (4) Anterior epistaxis Code(s): R04.0 - EPISTAXIS (5) Back pain Code(s): M54.9 - DORSALGIA, UNSPECIFIED (6) Diabetes Code(s): E11.9 - TYPE 2 DIABETES MELLITUS WITHOUT COMPLICATIONS Qualifiers: Diabetes mellitus type: type 2 Assessment/Plan Current Active Problems Acute hypoxemic respiratory failure (Acute) Healthcare associated bacterial pneumonia (Acute) Pneumonia (Acute) diabetes mellitus hyperglycemia insulin resistant steroid sensitive Laboratory Results - last 24 hr 07/01/18 07/01/18 07/02/18 16:21 21:17 05:31 POC Glucometer [phone] 07/02/18 11:16 POC Glucometer 413 plan: bgm qid novolog dose titration for steroid sensitivity levemir 35 unit bid
[2018-07-02] MEDS ORDERED: PT OWN MED DRAWER 7, Y5N ONE (17:07)
--- NOTE | 2018-07-02 17:15 | PN ---
Progress Note, Physician History of Present Illness: APPEARS MORE COMFORTABLE AFEBRILE ON STEROIDS SPUTUM C/S PSEUDOMONAS LEGIONELLA/PNEUMOCOCCAL AG (-) BC (-) - Current Medication List Current Medications: Active Medications Acetaminophen (Tylenol -) 650 mg PO Q6H PRN PRN Reason: PAIN LEVEL 4 - 6 Last Admin: 07/02/18 02:00 Dose: 650 mg Albuterol Sulfate (Ventolin 0.083% Nebulizer Soln -) 1 amp NEB Q4H PRN PRN Reason: SHORT OF BREATH/WHEEZING Albuterol/Ipratropium (Duoneb -) 1 amp NEB RQID [facility] Last Admin: 07/02/18 15:00 Dose: 1 amp Aspirin (Asa -) 81 mg PO DAILY [facility] Last Admin: 07/02/18 10:09 Dose: 81 mg Atorvastatin Calcium (Lipitor -) 10 mg PO HS [facility] Last Admin: 07/01/18 22:05 Dose: 10 mg Azithromycin (Zithromax -) 500 mg PO DAILY [facility] Last Admin: 07/02/18 10:09 Dose: 500 mg Benzocaine/Menthol (Cepacol Lozenge -) 1 each MM PRN PRN PRN Reason: SORE THROAT Budesonide (Pulmicort 0.5 Mg Nebulizer -) 1 amp NEB RBID [facility] Last Admin: 07/02/18 08:17 Dose: 1 amp Carbidopa/Levodopa (Sinemet 25/100 -) 1 each PO TID [facility] Last Admin: 07/02/18 14:26 Dose: 1 each Escitalopram Oxalate (Lexapro -) 10 mg PO DAILY [facility] Last Admin: 07/02/18 10:09 Dose: 10 mg Fludrocortisone Acetate (Florinef -) 0.1 mg PO DAILY [facility] Last Admin: 07/02/18 10:23 Dose: 0.1 mg Furosemide (Lasix -) 40 mg PO BIDLASIX [facility] Last Admin: 07/02/18 14:26 Dose: 40 mg Gabapentin (Neurontin -) 100 mg PO TID [facility] Last Admin: 07/02/18 14:26 Dose: 100 mg Guaifenesin (Diabetic Tussin Dm -) 10 ml PO Q4H PRN PRN Reason: COUGH Heparin Sodium (Porcine) (Heparin -) 5,000 unit SQ BID [facility] Last Admin: 07/02/18 10:08 Dose: 5,000 unit Ceftazidime 1 gm/ Dextrose 50 mls @ 100 mls/hr IVPB Q8H-IV [facility]; Protocol Last Admin: 07/02/18 10:08 Dose: 100 mls/hr Insulin Aspart (Novolog Vial Sliding Scale -) 1 vial SQ ACHS [facility]; Protocol Insulin Detemir (Levemir Vial) 40 units SQ AM [facility] Insulin Detemir (Levemir Vial) 35 units SQ HS [facility] Losartan Potassium (Cozaar -) 25 mg PO DAILY [facility] Last Admin: 07/02/18 10:09 Dose: 25 mg Methylprednisolone Sodium Succinate (Solu-Medrol -) 40 mg IVPUSH Q6H-IV [facility] Last Admin: 07/02/18 14:26 Dose: 40 mg Multivitamins/Minerals/Vitamin C (Tab-A-Vit -) 1 tab PO DAILY [facility] Last Admin: 07/02/18 10:09 Dose: 1 tab Nadolol (Corgard -) 20 mg PO DAILY [facility] Last Admin: 07/02/18 10:23 Dose: 20 mg Non-Formulary Medication (Fluticasone Furoate [Arnuity Ellipta]) 100 mcg IH DAILY [facility] Nortriptyline HCl (Pamelor -) 25 mg PO DAILY [facility] Last Admin: 07/02/18 10:23 Dose: 25 mg Pantoprazole Sodium (Protonix -) 40 mg PO DAILY [facility] Last Admin: 07/02/18 10:23 Dose: 40 mg Potassium Chloride (K-Dur -) 40 meq PO DAILY [facility] Last Admin: 07/02/18 10:09 Dose: 40 meq - Objective Vital Signs: Vital Signs Temperature 98.1 F 07/02/18 15:00 Pulse Rate 80 07/02/18 15:00 Respiratory Rate 20 07/02/18 15:00 Blood Pressure 120/70 07/02/18 15:00 O2 Sat by Pulse Oximetry (%) 94 L 07/02/18 09:00 Constitutional: Yes: No Distress Cardiovascular: Yes: Regular Rate and Rhythm, S1, S2 Respiratory: Yes: Other (+ B/L RONCHI, CREPITATIONS) Gastrointestinal: Yes: Normal Bowel Sounds, Soft. No: Tenderness Edema: No Labs: CBC, BMP 06/30/18 06:00 07/01/18 07:50 INR, PTT INR 1.30 (0.83-1.09) H 06/30/18 07:45 Assessment/Plan WORSENING BILATERAL INFILTRATES ? PSEUDOMONAS ? MAC EXACERBATION COPD CHRONIC LIVER DISEASE CONTINUE EMPIRIC CEFTAZIDIME/ ZITHROMAX [employer]
[2018-07-02] MEDS: INSULIN (LEVEMIR) 100 UNITS/ML UNITS SQ SCH (21:38)
[2018-07-02] MEDS: ATORVASTATIN CA 10 MG TABLET (FP) PO SCH (21:38)
[2018-07-03] MEDS: CEFTAZIDIME PENTAHYDRATE 1 GM in DEXTROSE 5%-WATER - 50 ML IVPB SCH ×3 (01:17→18:19)
[2018-07-03] MEDS: methylPREDNISolone NA SUCC 40 MG/1 ML VIAL IVPUSH SCH ×4 (02:35→21:13)
[2018-07-03] MEDS: INSULIN SLIDING SCALE (NOVOLOG) 1 VIAL SQ SCH ×4 (06:08→21:14)
[2018-07-03] MEDS: CARBIDOPA/LEVODOPA 25/100 TABLET (FP) PO SCH ×3 (06:10→21:13)
[2018-07-03] MEDS: FUROSEMIDE 40 MG TABLET (FP) PO SCH ×2 (06:10→15:10)
[2018-07-03] MEDS: GABAPENTIN 100 MG CAPSULE (FP) PO SCH ×3 (06:10→21:13)
[2018-07-03] MEDS: ACETAMINOPHEN 325 MG TABLET (FP) PO PRN ×2 (06:13→16:23)
[2018-07-03] MEDS: INSULIN (LEVEMIR) 100 UNITS/ML UNITS SQ SCH ×2 (06:36→21:13)
[2018-07-03] MEDS ORDERED: INSULIN (NOVOLOG MIX 70/30) 100 UNITS/ML MDV SQ ONE (06:52)
[2018-07-03] MEDS ORDERED: INSULIN (NOVOLOG) ASPART 100 UNITS/ML 10ML VIAL ONE (06:52)
[2018-07-03] MEDS: ALBUTEROL SO4 2.5/IPRATROPIUM 0.5 INH SOL 3 ML VIAL.NEB. NEB SCH ×4 (07:28→19:12)
[2018-07-03] MEDS: BUDESONIDE 0.5 MG/2 ML INH SUSP VIAL NEB SCH ×2 (07:30→19:13)
[2018-07-03] MEDS ORDERED: PT OWN MED DRAWER 7, Y5N ONE ×3 (09:58→18:16)
[2018-07-03] MEDS: AZITHROMYCIN 250 MG TABLET PO SCH (11:15)
[2018-07-03] MEDS: PANTOPRAZOLE 40 MG TABLET (FP) PO SCH (11:16)
[2018-07-03] MEDS: LOSARTAN POTASSIUM 25 MG TABLET PO SCH (11:16)
[2018-07-03] MEDS: ASPIRIN 81 MG CHEWABLE TABLETS PO SCH (11:16)
[2018-07-03] MEDS: ESCITALOPRAM OXALATE 10 MG TABLET (FP) PO SCH (11:16)
[2018-07-03] MEDS: FLUDROCORTISONE ACETATE 0.1 MG TABLET (FP) PO SCH (11:16)
[2018-07-03] MEDS: POTASSIUM CHLORIDE TABS 20 MEQ TABLET.ER (FP) PO SCH (11:16)
[2018-07-03] MEDS: MULTIVITAMINS (DAILY MVI) TABLET (FP) PO SCH (11:17)
[2018-07-03] MEDS: NADOLOL 20 MG TABLET (FP) PO SCH (11:17)
[2018-07-03] MEDS: NORTRIPTYLINE HCL 25 MG CAPSULE PO SCH (11:17)
[2018-07-03] MEDS: HEPARIN NA (PORCINE) 5,000 UNITS/ML 1ML VIAL SQ SCH ×2 (11:17→21:13)
--- NOTE | 2018-07-03 11:32 | PN ---
Progress Note (short form) - Note Progress Note: PULMONARY Breathing about the same. Still with cough and wheezing. Vital Signs Period Temp Pulse Resp BP Sys/Donovan Pulse Ox Last 24 Hr 97.9 F-98.3 F 74-80 20-20 113-141/64-76 94 Gen: tachypneic at rest Heart: RRR Lung: scattered rhonchi Abd: soft, nontender Ext: no edema CBC, BMP 06/30/18 06:00 07/01/18 07:50 Active Medications Acetaminophen (Tylenol -) 650 mg PO Q6H PRN PRN Reason: PAIN LEVEL 4 - 6 Last Admin: 07/03/18 06:13 Dose: 650 mg Albuterol Sulfate (Ventolin 0.083% Nebulizer Soln -) 1 amp NEB Q4H PRN PRN Reason: SHORT OF BREATH/WHEEZING Albuterol/Ipratropium (Duoneb -) 1 amp NEB RQID [facility] Last Admin: 07/03/18 11:24 Dose: 1 amp Aspirin (Asa -) 81 mg PO DAILY [facility] Last Admin: 07/03/18 11:16 Dose: 81 mg Atorvastatin Calcium (Lipitor -) 10 mg PO HS [facility] Last Admin: 07/02/18 21:38 Dose: 10 mg Azithromycin (Zithromax -) 500 mg PO DAILY [facility] Last Admin: 07/03/18 11:15 Dose: 500 mg Benzocaine/Menthol (Cepacol Lozenge -) 1 each MM PRN PRN PRN Reason: SORE THROAT Budesonide (Pulmicort 0.5 Mg Nebulizer -) 1 amp NEB RBID [facility] Last Admin: 07/03/18 07:30 Dose: 1 amp Carbidopa/Levodopa (Sinemet 25/100 -) 1 each PO TID [facility] Last Admin: 07/03/18 06:10 Dose: 1 each Escitalopram Oxalate (Lexapro -) 10 mg PO DAILY [facility] Last Admin: 07/03/18 11:16 Dose: 10 mg Fludrocortisone Acetate (Florinef -) 0.1 mg PO DAILY [facility] Last Admin: 07/03/18 11:16 Dose: 0.1 mg Furosemide (Lasix -) 40 mg PO BIDLASIX [facility] Last Admin: 07/03/18 06:10 Dose: 40 mg Gabapentin (Neurontin -) 100 mg PO TID [facility] Last Admin: 07/03/18 06:10 Dose: 100 mg Guaifenesin (Diabetic Tussin Dm -) 10 ml PO Q4H PRN PRN Reason: COUGH Heparin Sodium (Porcine) (Heparin -) 5,000 unit SQ BID [facility] Last Admin: 07/03/18 11:17 Dose: 5,000 unit Ceftazidime 1 gm/ Dextrose 50 mls @ 100 mls/hr IVPB Q8H-IV [facility]; Protocol Last Admin: 07/03/18 11:15 Dose: 100 mls/hr Insulin Aspart (Novolog Vial Sliding Scale -) 1 vial SQ ACHS [facility]; Protocol Last Admin: 07/03/18 06:08 Dose: Not Given Insulin Detemir (Levemir Vial) 40 units SQ AM [facility] Last Admin: 07/03/18 06:36 Dose: 40 units Insulin Detemir (Levemir Vial) 35 units SQ HS [facility] Last Admin: 07/02/18 21:38 Dose: 35 units Losartan Potassium (Cozaar -) 25 mg PO DAILY [facility] Last Admin: 07/03/18 11:16 Dose: 25 mg Methylprednisolone Sodium Succinate (Solu-Medrol -) 40 mg IVPUSH Q6H-IV [facility] Last Admin: 07/03/18 10:10 Dose: 40 mg Multivitamins/Minerals/Vitamin C (Tab-A-Vit -) 1 tab PO DAILY [facility] Last Admin: 07/03/18 11:17 Dose: 1 tab Nadolol (Corgard -) 20 mg PO DAILY [facility] Last Admin: 07/03/18 11:17 Dose: 20 mg Non-Formulary Medication (Fluticasone Furoate [Arnuity Ellipta]) 100 mcg IH DAILY [facility] Nortriptyline HCl (Pamelor -) 25 mg PO DAILY [facility] Last Admin: 07/03/18 11:17 Dose: 25 mg Pantoprazole Sodium (Protonix -) 40 mg PO DAILY [facility] Last Admin: 07/03/18 11:16 Dose: 40 mg Potassium Chloride (K-Dur -) 40 meq PO DAILY [facility] Last Admin: 07/03/18 11:16 Dose: 40 meq A/P Acute Hypoxic Respiratory Failure Pneumonia h/o Atypical Mycobacterial Infection CAD Liver Cirrhosis Hyperlipidemia - continue antibiotics per ID - f/u cultures - continue medrol - inhaled bronchodilators standing and PRN - O2 to keep SpO2 >90% - glucose control while on systemic steroids - DVT prophylaxis
--- NOTE | 2018-07-03 14:49 | PN ---
Progress Note, Physician History of Present Illness: APPEARS COMFORTABLE IN BED ON NASAL CANNULA AFEBRILE ON STEROIDS SPUTUM C/S PSEUDOMONAS LEGIONELLA/PNEUMOCOCCAL AG (-) BC (-) - Current Medication List Current Medications: Active Medications Acetaminophen (Tylenol -) 650 mg PO Q6H PRN PRN Reason: PAIN LEVEL 4 - 6 Last Admin: 07/03/18 06:13 Dose: 650 mg Albuterol Sulfate (Ventolin 0.083% Nebulizer Soln -) 1 amp NEB Q4H PRN PRN Reason: SHORT OF BREATH/WHEEZING Albuterol/Ipratropium (Duoneb -) 1 amp NEB RQID [facility] Last Admin: 07/03/18 11:24 Dose: 1 amp Aspirin (Asa -) 81 mg PO DAILY [facility] Last Admin: 07/03/18 11:16 Dose: 81 mg Atorvastatin Calcium (Lipitor -) 10 mg PO HS [facility] Last Admin: 07/02/18 21:38 Dose: 10 mg Azithromycin (Zithromax -) 500 mg PO DAILY [facility] Last Admin: 07/03/18 11:15 Dose: 500 mg Benzocaine/Menthol (Cepacol Lozenge -) 1 each MM PRN PRN PRN Reason: SORE THROAT Budesonide (Pulmicort 0.5 Mg Nebulizer -) 1 amp NEB RBID [facility] Last Admin: 07/03/18 07:30 Dose: 1 amp Carbidopa/Levodopa (Sinemet 25/100 -) 1 each PO TID [facility] Last Admin: 07/03/18 06:10 Dose: 1 each Escitalopram Oxalate (Lexapro -) 10 mg PO DAILY [facility] Last Admin: 07/03/18 11:16 Dose: 10 mg Fludrocortisone Acetate (Florinef -) 0.1 mg PO DAILY [facility] Last Admin: 07/03/18 11:16 Dose: 0.1 mg Furosemide (Lasix -) 40 mg PO BIDLASIX [facility] Last Admin: 07/03/18 06:10 Dose: 40 mg Gabapentin (Neurontin -) 100 mg PO TID [facility] Last Admin: 07/03/18 06:10 Dose: 100 mg Guaifenesin (Diabetic Tussin Dm -) 10 ml PO Q4H PRN PRN Reason: COUGH Heparin Sodium (Porcine) (Heparin -) 5,000 unit SQ BID [facility] Last Admin: 07/03/18 11:17 Dose: 5,000 unit Ceftazidime 1 gm/ Dextrose 50 mls @ 100 mls/hr IVPB Q8H-IV [facility]; Protocol Last Admin: 07/03/18 11:15 Dose: 100 mls/hr Insulin Aspart (Novolog Vial Sliding Scale -) 1 vial SQ ACHS [facility]; Protocol Last Admin: 07/03/18 12:06 Dose: 10 units Insulin Detemir (Levemir Vial) 40 units SQ AM [facility] Last Admin: 07/03/18 06:36 Dose: 40 units Insulin Detemir (Levemir Vial) 35 units SQ HS [facility] Last Admin: 07/02/18 21:38 Dose: 35 units Losartan Potassium (Cozaar -) 25 mg PO DAILY [facility] Last Admin: 07/03/18 11:16 Dose: 25 mg Methylprednisolone Sodium Succinate (Solu-Medrol -) 40 mg IVPUSH Q6H-IV [facility] Last Admin: 07/03/18 10:10 Dose: 40 mg Multivitamins/Minerals/Vitamin C (Tab-A-Vit -) 1 tab PO DAILY [facility] Last Admin: 07/03/18 11:17 Dose: 1 tab Nadolol (Corgard -) 20 mg PO DAILY [facility] Last Admin: 07/03/18 11:17 Dose: 20 mg Non-Formulary Medication (Fluticasone Furoate [Arnuity Ellipta]) 100 mcg IH DAILY [facility] Nortriptyline HCl (Pamelor -) 25 mg PO DAILY [facility] Last Admin: 07/03/18 11:17 Dose: 25 mg Pantoprazole Sodium (Protonix -) 40 mg PO DAILY [facility] Last Admin: 07/03/18 11:16 Dose: 40 mg Potassium Chloride (K-Dur -) 40 meq PO DAILY [facility] Last Admin: 07/03/18 11:16 Dose: 40 meq - Objective Vital Signs: Vital Signs Temperature 97.9 F 07/03/18 06:00 Pulse Rate 77 07/03/18 06:00 Respiratory Rate 20 07/03/18 06:00 Blood Pressure 141/76 07/03/18 06:00 O2 Sat by Pulse Oximetry (%) 94 L 07/02/18 21:00 Constitutional: Yes: No Distress Cardiovascular: Yes: Regular Rate and Rhythm, S1, S2 Respiratory: Yes: Other (+ RHONCHI/ CREPITATIONS B/L) Gastrointestinal: Yes: Normal Bowel Sounds, Soft. No: Tenderness Edema: No Labs: CBC, BMP 06/30/18 06:00 07/01/18 07:50 INR, PTT INR 1.30 (0.83-1.09) H 06/30/18 07:45 Assessment/Plan WORSENING BILATERAL INFILTRATES ? PSEUDOMONAS ? MAC EXACERBATION COPD CHRONIC LIVER DISEASE CONTINUE EMPIRIC CEFTAZIDIME/ ZITHROMAX [employer]
--- NOTE | 2018-07-03 16:02 | PN ---
Progress Note, Physician Chief Complaint: PNA Hemopytsis SOB History of Present Illness: Previous notes and events reviewed awake and chante BROWN continues to have SOB - Current Medication List Current Medications: Active Medications Acetaminophen (Tylenol -) 650 mg PO Q6H PRN PRN Reason: PAIN LEVEL 4 - 6 Last Admin: 07/03/18 06:13 Dose: 650 mg Albuterol Sulfate (Ventolin 0.083% Nebulizer Soln -) 1 amp NEB Q4H PRN PRN Reason: SHORT OF BREATH/WHEEZING Albuterol/Ipratropium (Duoneb -) 1 amp NEB RQID [facility] Last Admin: 07/03/18 11:24 Dose: 1 amp Aspirin (Asa -) 81 mg PO DAILY [facility] Last Admin: 07/03/18 11:16 Dose: 81 mg Atorvastatin Calcium (Lipitor -) 10 mg PO HS [facility] Last Admin: 07/02/18 21:38 Dose: 10 mg Azithromycin (Zithromax -) 500 mg PO DAILY [facility] Last Admin: 07/03/18 11:15 Dose: 500 mg Benzocaine/Menthol (Cepacol Lozenge -) 1 each MM PRN PRN PRN Reason: SORE THROAT Budesonide (Pulmicort 0.5 Mg Nebulizer -) 1 amp NEB RBID [facility] Last Admin: 07/03/18 07:30 Dose: 1 amp Carbidopa/Levodopa (Sinemet 25/100 -) 1 each PO TID [facility] Last Admin: 07/03/18 06:10 Dose: 1 each Escitalopram Oxalate (Lexapro -) 10 mg PO DAILY [facility] Last Admin: 07/03/18 11:16 Dose: 10 mg Fludrocortisone Acetate (Florinef -) 0.1 mg PO DAILY [facility] Last Admin: 07/03/18 11:16 Dose: 0.1 mg Furosemide (Lasix -) 40 mg PO BIDLASIX [facility] Last Admin: 07/03/18 06:10 Dose: 40 mg Gabapentin (Neurontin -) 100 mg PO TID [facility] Last Admin: 07/03/18 06:10 Dose: 100 mg Guaifenesin (Diabetic Tussin Dm -) 10 ml PO Q4H PRN PRN Reason: COUGH Heparin Sodium (Porcine) (Heparin -) 5,000 unit SQ BID [facility] Last Admin: 07/03/18 11:17 Dose: 5,000 unit Ceftazidime 1 gm/ Dextrose 50 mls @ 100 mls/hr IVPB Q8H-IV [facility]; Protocol Last Admin: 07/03/18 11:15 Dose: 100 mls/hr Insulin Aspart (Novolog Vial Sliding Scale -) 1 vial SQ ACHS [facility]; Protocol Last Admin: 07/03/18 12:06 Dose: 10 units Insulin Detemir (Levemir Vial) 40 units SQ AM [facility] Last Admin: 07/03/18 06:36 Dose: 40 units Insulin Detemir (Levemir Vial) 35 units SQ HS [facility] Last Admin: 07/02/18 21:38 Dose: 35 units Losartan Potassium (Cozaar -) 25 mg PO DAILY [facility] Last Admin: 07/03/18 11:16 Dose: 25 mg Methylprednisolone Sodium Succinate (Solu-Medrol -) 40 mg IVPUSH Q6H-IV [facility] Last Admin: 07/03/18 10:10 Dose: 40 mg Multivitamins/Minerals/Vitamin C (Tab-A-Vit -) 1 tab PO DAILY [facility] Last Admin: 07/03/18 11:17 Dose: 1 tab Nadolol (Corgard -) 20 mg PO DAILY [facility] Last Admin: 07/03/18 11:17 Dose: 20 mg Non-Formulary Medication (Fluticasone Furoate [Arnuity Ellipta]) 100 mcg IH DAILY [facility] Nortriptyline HCl (Pamelor -) 25 mg PO DAILY [facility] Last Admin: 07/03/18 11:17 Dose: 25 mg Pantoprazole Sodium (Protonix -) 40 mg PO DAILY [facility] Last Admin: 07/03/18 11:16 Dose: 40 mg Potassium Chloride (K-Dur -) 40 meq PO DAILY [facility] Last Admin: 07/03/18 11:16 Dose: 40 meq - Objective Vital Signs: Vital Signs Temperature 97.9 F 07/03/18 06:00 Pulse Rate 77 07/03/18 06:00 Respiratory Rate 20 07/03/18 06:00 Blood Pressure 141/76 07/03/18 06:00 O2 Sat by Pulse Oximetry (%) 94 L 07/02/18 21:00 Constitutional: Yes: No Distress, Calm Eyes: Yes: Conjunctiva Clear HENT: Yes: Atraumatic Neck: Yes: Supple Cardiovascular: Yes: Regular Rate and Rhythm Respiratory: Yes: Regular, On Nasal O2, Rhonchi Gastrointestinal: Yes: Normal Bowel Sounds, Soft, Other (non tender) Musculoskeletal: Yes: Muscle Weakness Extremities: Yes: WNL Edema: No Neurological: Yes: Alert, Oriented Psychiatric: Yes: Alert, Oriented Labs: CBC, BMP 06/30/18 06:00 07/01/18 07:50 INR, PTT INR 1.30 (0.83-1.09) H 06/30/18 07:45 - ....Imaging Cat Scan: Report Reviewed Problem List - Problems (1) Pneumonia Assessment/Plan: -Pulmonary and ID on board -continue IV ceftazidime and PO zithromax -O2 via NC -keep SpO2 >90% -IV solumedrol -albuterol neb tx PRN for SOB and Duoneb QID Code(s): J18.9 - PNEUMONIA, UNSPECIFIED ORGANISM (2) Diabetes Assessment/Plan: -BGM ACHS -ISS, Levemir -endo on board -diabetic diet Code(s): E11.9 - TYPE 2 DIABETES MELLITUS WITHOUT COMPLICATIONS Qualifiers: Diabetes mellitus type: type 2 (3) Hypertension Assessment/Plan: -low Na diet -continue cozaar, nadolol, -monitor BP Code(s): I10 - ESSENTIAL (PRIMARY) HYPERTENSION (4) Hypokalemia Assessment/Plan: -most recent K 3.9 -will monitor trend -continue with Kdur 40mEq PO daily Code(s): E87.6 - HYPOKALEMIA (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
[2018-07-03] MEDS: ATORVASTATIN CA 10 MG TABLET (FP) PO SCH (21:14)
[2018-07-03] MEDS: NYSTATIN 100,000 UNIT/GM TOPICAL CREAM 15 GM TUBE TP SCH (21:14)
[2018-07-04] MEDS: CEFTAZIDIME PENTAHYDRATE 1 GM in DEXTROSE 5%-WATER - 50 ML IVPB SCH ×3 (01:32→17:27)
[2018-07-04] MEDS: methylPREDNISolone NA SUCC 40 MG/1 ML VIAL IVPUSH SCH ×3 (02:50→17:26)
[2018-07-04] MEDS: GABAPENTIN 100 MG CAPSULE (FP) PO SCH ×3 (05:34→22:45)
[2018-07-04] MEDS: FUROSEMIDE 40 MG TABLET (FP) PO SCH ×2 (05:34→14:30)
[2018-07-04] MEDS: CARBIDOPA/LEVODOPA 25/100 TABLET (FP) PO SCH ×3 (05:34→22:45)
[2018-07-04] MEDS ORDERED: PT OWN MED DRAWER 7, Y5N ONE ×4 (06:49→21:01)
[2018-07-04] MEDS: INSULIN SLIDING SCALE (NOVOLOG) 1 VIAL SQ SCH ×4 (07:39→22:50)
[2018-07-04] MEDS: INSULIN (LEVEMIR) 100 UNITS/ML UNITS SQ SCH ×2 (07:40→22:44)
[2018-07-04 07:44] LABS: HEMATOCRIT 33.5 % (32.4-45.2); HEMOGLOBIN 11.8 GM/dL (10.7-15.3); MCH 32.3 pg (25.7-33.7); MCHC 35.3 g/dl (32.0-36.0); MEAN CELL VOLUME 91.7 fl (80-96); MEAN PLT VOLUME 7.7 fl (7.5-11.1); PLATELET COUNT 206 K/MM3 (134-434); RBC 3.66 M/mm3 (3.60-5.2); RDW 14.5 % (11.6-15.6)
[2018-07-04 08:18] LABS: ALK PHOS 175 U/L (45-117); ANION GAP 5 MMOL/L (8-16); BLOOD UREA NITROGEN 19 mg/dL (7-18); CHLORIDE 97 mmol/L (98-107); CO2 36 mmol/L (21-32); CREATININE 0.8 mg/dL (0.55-1.3); GLUCOSE,RANDOM 113 mg/dL (74-106); POTASSIUM 3.4 mmol/L (3.5-5.1); SGOT/AST 52 U/L (15-37); SGPT/ALT 15 U/L (13-61); SODIUM 138 mmol/L (136-145); TOT PROT 6.9 g/dl (6.4-8.2)
[2018-07-04] MEDS: BUDESONIDE 0.5 MG/2 ML INH SUSP VIAL NEB SCH ×2 (09:44→21:40)
[2018-07-04] MEDS: HEPARIN NA (PORCINE) 5,000 UNITS/ML 1ML VIAL SQ SCH ×2 (10:00→22:44)
[2018-07-04] MEDS: PANTOPRAZOLE 40 MG TABLET (FP) PO SCH (10:03)
[2018-07-04] MEDS: AZITHROMYCIN 250 MG TABLET PO SCH (10:03)
[2018-07-04] MEDS: ASPIRIN 81 MG CHEWABLE TABLETS PO SCH (10:03)
[2018-07-04] MEDS: POTASSIUM CHLORIDE TABS 20 MEQ TABLET.ER (FP) PO SCH (10:03)
[2018-07-04] MEDS: LOSARTAN POTASSIUM 25 MG TABLET PO SCH (10:04)
[2018-07-04] MEDS: NADOLOL 20 MG TABLET (FP) PO SCH (10:04)
[2018-07-04] MEDS: MULTIVITAMINS (DAILY MVI) TABLET (FP) PO SCH (10:04)
[2018-07-04] MEDS: FLUDROCORTISONE ACETATE 0.1 MG TABLET (FP) PO SCH (10:04)
[2018-07-04] MEDS: ESCITALOPRAM OXALATE 10 MG TABLET (FP) PO SCH (10:04)
[2018-07-04] MEDS: NYSTATIN 100,000 UNIT/GM TOPICAL CREAM 15 GM TUBE TP SCH ×2 (10:05→22:45)
[2018-07-04] MEDS: NORTRIPTYLINE HCL 25 MG CAPSULE PO SCH (10:05)
--- NOTE | 2018-07-04 11:26 | PN ---
Progress Note (short form) - Note Progress Note: PULMONARY Breathing slightly beter today. Still with cough with dark blood and wheezing. Vital Signs Period Temp Pulse Resp BP Sys/Donovan Pulse Ox Last 24 Hr 97.6 F-98 F 72-84 20-20 115-147/65-86 94 Gen: less tachypneic at rest Heart: RRR Lung: scattered rhonchi Abd: soft, nontender Ext: no edema CBC, BMP 07/04/18 06:35 07/04/18 06:35 Active Medications Acetaminophen (Tylenol -) 650 mg PO Q6H PRN PRN Reason: PAIN LEVEL 4 - 6 Last Admin: 07/03/18 16:23 Dose: 650 mg Albuterol Sulfate (Ventolin 0.083% Nebulizer Soln -) 1 amp NEB Q4H PRN PRN Reason: SHORT OF BREATH/WHEEZING Aspirin (Asa -) 81 mg PO DAILY [facility] Last Admin: 07/04/18 10:03 Dose: 81 mg Atorvastatin Calcium (Lipitor -) 10 mg PO HS [facility] Last Admin: 07/03/18 21:14 Dose: 10 mg Azithromycin (Zithromax -) 500 mg PO DAILY [facility] Last Admin: 07/04/18 10:03 Dose: 500 mg Benzocaine/Menthol (Cepacol Lozenge -) 1 each MM PRN PRN PRN Reason: SORE THROAT Budesonide (Pulmicort 0.5 Mg Nebulizer -) 1 amp NEB RBID [facility] Last Admin: 07/04/18 09:44 Dose: 1 amp Carbidopa/Levodopa (Sinemet 25/100 -) 1 each PO TID [facility] Last Admin: 07/04/18 05:34 Dose: 1 each Escitalopram Oxalate (Lexapro -) 10 mg PO DAILY [facility] Last Admin: 07/04/18 10:04 Dose: 10 mg Fludrocortisone Acetate (Florinef -) 0.1 mg PO DAILY [facility] Last Admin: 07/04/18 10:04 Dose: 0.1 mg Furosemide (Lasix -) 40 mg PO BIDLASIX [facility] Last Admin: 07/04/18 05:34 Dose: 40 mg Gabapentin (Neurontin -) 100 mg PO TID [facility] Last Admin: 07/04/18 05:34 Dose: 100 mg Guaifenesin (Diabetic Tussin Dm -) 10 ml PO Q4H PRN PRN Reason: COUGH Heparin Sodium (Porcine) (Heparin -) 5,000 unit SQ BID [facility] Last Admin: 07/04/18 10:00 Dose: 5,000 unit Ceftazidime 1 gm/ Dextrose 50 mls @ 100 mls/hr IVPB Q8H-IV [facility]; Protocol Last Admin: 07/04/18 09:56 Dose: 100 mls/hr Insulin Aspart (Novolog Vial Sliding Scale -) 1 vial SQ ACHS [facility]; Protocol Last Admin: 07/04/18 07:39 Dose: Not Given Insulin Detemir (Levemir Vial) 40 units SQ AM [facility] Last Admin: 07/04/18 07:40 Dose: 40 units Insulin Detemir (Levemir Vial) 35 units SQ HS [facility] Last Admin: 07/03/18 21:13 Dose: 35 units Losartan Potassium (Cozaar -) 25 mg PO DAILY [facility] Last Admin: 07/04/18 10:04 Dose: 25 mg Methylprednisolone Sodium Succinate (Solu-Medrol -) 40 mg IVPUSH Q6H-IV [facility] Last Admin: 07/04/18 09:57 Dose: 40 mg Multivitamins/Minerals/Vitamin C (Tab-A-Vit -) 1 tab PO DAILY [facility] Last Admin: 07/04/18 10:04 Dose: 1 tab Nadolol (Corgard -) 20 mg PO DAILY [facility] Last Admin: 07/04/18 10:04 Dose: 20 mg Non-Formulary Medication (Fluticasone Furoate [Arnuity Ellipta]) 100 mcg IH DAILY [facility] Nortriptyline HCl (Pamelor -) 25 mg PO DAILY [facility] Last Admin: 07/04/18 10:05 Dose: 25 mg Nystatin (Mycostatin Cream -) 1 applic TP BID [facility] Last Admin: 07/04/18 10:05 Dose: 1 applic Pantoprazole Sodium (Protonix -) 40 mg PO DAILY [facility] Last Admin: 07/04/18 10:03 Dose: 40 mg Potassium Chloride (K-Dur -) 40 meq PO DAILY [facility] Last Admin: 07/04/18 10:03 Dose: 40 meq A/P Acute Hypoxic Respiratory Failure Pneumonia h/o Atypical Mycobacterial Infection CAD Liver Cirrhosis Hyperlipidemia - continue antibiotics per ID - f/u cultures - will decrease medrol to q8h - inhaled bronchodilators standing and PRN - O2 to keep SpO2 >90% - glucose control while on systemic steroids - DVT prophylaxis
--- NOTE | 2018-07-04 11:57 | PN ---
Progress Note, Physician Chief Complaint: patient seen and examined awake alert in chair - Current Medication List Current Medications: Active Medications Acetaminophen (Tylenol -) 650 mg PO Q6H PRN PRN Reason: PAIN LEVEL 4 - 6 Last Admin: 07/03/18 16:23 Dose: 650 mg Albuterol Sulfate (Ventolin 0.083% Nebulizer Soln -) 1 amp NEB Q4H PRN PRN Reason: SHORT OF BREATH/WHEEZING Aspirin (Asa -) 81 mg PO DAILY [facility] Last Admin: 07/04/18 10:03 Dose: 81 mg Atorvastatin Calcium (Lipitor -) 10 mg PO HS [facility] Last Admin: 07/03/18 21:14 Dose: 10 mg Azithromycin (Zithromax -) 500 mg PO DAILY [facility] Last Admin: 07/04/18 10:03 Dose: 500 mg Benzocaine/Menthol (Cepacol Lozenge -) 1 each MM PRN PRN PRN Reason: SORE THROAT Budesonide (Pulmicort 0.5 Mg Nebulizer -) 1 amp NEB RBID [facility] Last Admin: 07/04/18 09:44 Dose: 1 amp Carbidopa/Levodopa (Sinemet 25/100 -) 1 each PO TID [facility] Last Admin: 07/04/18 05:34 Dose: 1 each Escitalopram Oxalate (Lexapro -) 10 mg PO DAILY [facility] Last Admin: 07/04/18 10:04 Dose: 10 mg Fludrocortisone Acetate (Florinef -) 0.1 mg PO DAILY [facility] Last Admin: 07/04/18 10:04 Dose: 0.1 mg Furosemide (Lasix -) 40 mg PO BIDLASIX [facility] Last Admin: 07/04/18 05:34 Dose: 40 mg Gabapentin (Neurontin -) 100 mg PO TID [facility] Last Admin: 07/04/18 05:34 Dose: 100 mg Guaifenesin (Diabetic Tussin Dm -) 10 ml PO Q4H PRN PRN Reason: COUGH Heparin Sodium (Porcine) (Heparin -) 5,000 unit SQ BID [facility] Last Admin: 07/04/18 10:00 Dose: 5,000 unit Ceftazidime 1 gm/ Dextrose 50 mls @ 100 mls/hr IVPB Q8H-IV [facility]; Protocol Last Admin: 07/04/18 09:56 Dose: 100 mls/hr Insulin Aspart (Novolog Vial Sliding Scale -) 1 vial SQ ACHS [facility]; Protocol Last Admin: 07/04/18 11:44 Dose: 12 units Insulin Detemir (Levemir Vial) 40 units SQ AM [facility] Last Admin: 07/04/18 07:40 Dose: 40 units Insulin Detemir (Levemir Vial) 35 units SQ HS [facility] Last Admin: 07/03/18 21:13 Dose: 35 units Losartan Potassium (Cozaar -) 25 mg PO DAILY [facility] Last Admin: 07/04/18 10:04 Dose: 25 mg Methylprednisolone Sodium Succinate (Solu-Medrol -) 40 mg IVPUSH Q8H-IV [facility] Multivitamins/Minerals/Vitamin C (Tab-A-Vit -) 1 tab PO DAILY [facility] Last Admin: 07/04/18 10:04 Dose: 1 tab Nadolol (Corgard -) 20 mg PO DAILY [facility] Last Admin: 07/04/18 10:04 Dose: 20 mg Non-Formulary Medication (Fluticasone Furoate [Arnuity Ellipta]) 100 mcg IH DAILY [facility] Nortriptyline HCl (Pamelor -) 25 mg PO DAILY [facility] Last Admin: 07/04/18 10:05 Dose: 25 mg Nystatin (Mycostatin Cream -) 1 applic TP BID [facility] Last Admin: 07/04/18 10:05 Dose: 1 applic Pantoprazole Sodium (Protonix -) 40 mg PO DAILY [facility] Last Admin: 07/04/18 10:03 Dose: 40 mg Potassium Chloride (K-Dur -) 40 meq PO DAILY [facility] Last Admin: 07/04/18 10:03 Dose: 40 meq - Objective Vital Signs: Vital Signs Temperature 97.6 F 07/04/18 05:26 Pulse Rate 72 07/04/18 05:26 Respiratory Rate 20 07/04/18 05:26 Blood Pressure 115/65 07/04/18 05:26 O2 Sat by Pulse Oximetry (%) 94 L 07/03/18 21:00 Constitutional: Yes: Calm Cardiovascular: Yes: Regular Rate and Rhythm, S1, S2 Respiratory: Yes: Diminished Gastrointestinal: Yes: Normal Bowel Sounds, Soft Edema: No Neurological: Yes: Alert Labs: CBC, BMP 07/04/18 06:35 07/04/18 06:35 INR, PTT INR 1.30 (0.83-1.09) H 06/30/18 07:45 Problem List - Problems (1) Healthcare associated bacterial pneumonia Assessment/Plan: id and pulm consult appreciated on fortaz and azithromax ct chest increase bilateral airspace disease with opacities broad specutrum abx pcn,quinolones ,sulfa allergies dvt ppx Microbiology 06/28/18 03:19 Sputum - Expectorated Gram Stain - Final 06/28/18 03:19 Sputum - Expectorated Sputum Culture - Final Pseudomonas Aeruginosa Code(s): J15.9 - UNSPECIFIED BACTERIAL PNEUMONIA (2) Cough Assessment/Plan: fortaz and azithromycin Microbiology 06/29/18 10:30 Urine For Antigen Detection Legionella Antigen - Final 06/29/18 10:30 Urine For Antigen Detection Streptococcus pneumoniae Antigen (M - Final 06/28/18 18:20 Urine - Urine Clean Catch Urine Culture - Final NO GROWTH OBTAINED 06/28/18 03:19 Sputum - Expectorated Gram Stain - Final 06/28/18 18:32 Blood - Peripheral Venous Blood Culture - Preliminary NO GROWTH OBTAINED AFTER 24 HOURS, INCUBATION TO CONTINUE FOR 4 DAYS. 06/28/18 18:20 Blood - Peripheral Venous Blood Culture - Preliminary NO GROWTH OBTAINED AFTER 24 HOURS, INCUBATION TO CONTINUE FOR 4 DAYS. 06/28/18 03:19 Sputum - Expectorated Sputum Culture - Preliminary Pseudomonas Species steroids iv 40 q8hr Code(s): R05 - COUGH (3) Electrolyte abnormality Assessment/Plan: potasium repleted Code(s): E87.8 - OTH DISORDERS OF ELECTROLYTE AND FLUID BALANCE, NEC (4) Diabetes Assessment/Plan: sliding scale levemir taper the steroids to q8hr Code(s): E11.9 - TYPE 2 DIABETES MELLITUS WITHOUT COMPLICATIONS Qualifiers: Diabetes mellitus type: type 2
[2018-07-04] MEDS: ACETAMINOPHEN 325 MG TABLET (FP) PO PRN (17:26)
[2018-07-04] MEDS: ATORVASTATIN CA 10 MG TABLET (FP) PO SCH (22:45)
--- NOTE | 2018-07-05 00:52 | PN ---
Progress Note, Physician Chief Complaint: weak coughing and high sugars - Current Medication List Current Medications: Active Medications Acetaminophen (Tylenol -) 650 mg PO Q6H PRN PRN Reason: PAIN LEVEL 4 - 6 Last Admin: 07/04/18 17:26 Dose: 650 mg Albuterol Sulfate (Ventolin 0.083% Nebulizer Soln -) 1 amp NEB Q4H PRN PRN Reason: SHORT OF BREATH/WHEEZING Aspirin (Asa -) 81 mg PO DAILY [facility] Last Admin: 07/04/18 10:03 Dose: 81 mg Atorvastatin Calcium (Lipitor -) 10 mg PO HS [facility] Last Admin: 07/04/18 22:45 Dose: 10 mg Azithromycin (Zithromax -) 500 mg PO DAILY [facility] Last Admin: 07/04/18 10:03 Dose: 500 mg Benzocaine/Menthol (Cepacol Lozenge -) 1 each MM PRN PRN PRN Reason: SORE THROAT Budesonide (Pulmicort 0.5 Mg Nebulizer -) 1 amp NEB RBID [facility] Last Admin: 07/04/18 21:40 Dose: 1 amp Carbidopa/Levodopa (Sinemet 25/100 -) 1 each PO TID [facility] Last Admin: 07/04/18 22:45 Dose: 1 each Escitalopram Oxalate (Lexapro -) 10 mg PO DAILY [facility] Last Admin: 07/04/18 10:04 Dose: 10 mg Fludrocortisone Acetate (Florinef -) 0.1 mg PO DAILY [facility] Last Admin: 07/04/18 10:04 Dose: 0.1 mg Furosemide (Lasix -) 40 mg PO BIDLASIX [facility] Last Admin: 07/04/18 14:30 Dose: 40 mg Gabapentin (Neurontin -) 100 mg PO TID [facility] Last Admin: 07/04/18 22:45 Dose: 100 mg Guaifenesin (Diabetic Tussin Dm -) 10 ml PO Q4H PRN PRN Reason: COUGH Heparin Sodium (Porcine) (Heparin -) 5,000 unit SQ BID [facility] Last Admin: 07/04/18 22:44 Dose: 5,000 unit Ceftazidime 1 gm/ Dextrose 50 mls @ 100 mls/hr IVPB Q8H-IV [facility]; Protocol Last Admin: 07/04/18 17:27 Dose: 100 mls/hr Insulin Aspart (Novolog Vial Sliding Scale -) 1 vial SQ ACHS [facility]; Protocol Last Admin: 07/04/18 22:50 Dose: 12 units Insulin Detemir (Levemir Vial) 35 units SQ HS [facility] Last Admin: 07/04/18 22:44 Dose: 35 units Insulin Detemir (Levemir Vial) 50 units SQ AM [facility] Losartan Potassium (Cozaar -) 25 mg PO DAILY [facility] Last Admin: 07/04/18 10:04 Dose: 25 mg Methylprednisolone Sodium Succinate (Solu-Medrol -) 40 mg IVPUSH Q8H-IV [facility] Last Admin: 07/04/18 17:26 Dose: 40 mg Multivitamins/Minerals/Vitamin C (Tab-A-Vit -) 1 tab PO DAILY [facility] Last Admin: 07/04/18 10:04 Dose: 1 tab Nadolol (Corgard -) 20 mg PO DAILY [facility] Last Admin: 07/04/18 10:04 Dose: 20 mg Non-Formulary Medication (Fluticasone Furoate [Arnuity Ellipta]) 100 mcg IH DAILY [facility] Nortriptyline HCl (Pamelor -) 25 mg PO DAILY [facility] Last Admin: 07/04/18 10:05 Dose: 25 mg Nystatin (Mycostatin Cream -) 1 applic TP BID [facility] Last Admin: 07/04/18 22:45 Dose: 1 applic Pantoprazole Sodium (Protonix -) 40 mg PO DAILY [facility] Last Admin: 07/04/18 10:03 Dose: 40 mg Potassium Chloride (K-Dur -) 40 meq PO DAILY [facility] Last Admin: 07/04/18 10:03 Dose: 40 meq - Objective Vital Signs: Vital Signs Temperature 97.5 F L 07/04/18 18:00 Pulse Rate 59 L 07/04/18 23:21 Respiratory Rate 20 07/04/18 23:21 Blood Pressure 130/86 07/04/18 23:21 O2 Sat by Pulse Oximetry (%) 94 L 07/04/18 21:00 Constitutional: Yes: Calm Eyes: Yes: EOM Intact HENT: Yes: Normocephalic Neck: Yes: Trachea Midline Cardiovascular: Yes: Regular Rate and Rhythm Respiratory: Yes: Rhonchi, SOB, SOB on Exertion Gastrointestinal: Yes: Normal Bowel Sounds Musculoskeletal: Yes: Muscle Pain, Muscle Weakness Extremities: Yes: WNL Edema: No Integumentary: Yes: WNL Neurological: Yes: Alert Labs: CBC, BMP 07/04/18 06:35 07/04/18 06:35 INR, PTT INR 1.30 (0.83-1.09) H 06/30/18 07:45 Problem List - Problems (1) Acute hypoxemic respiratory failure Code(s): J96.01 - ACUTE RESPIRATORY FAILURE WITH HYPOXIA (2) Pneumonia Code(s): J18.9 - PNEUMONIA, UNSPECIFIED ORGANISM (3) Angina pectoris Code(s): I20.9 - ANGINA PECTORIS, UNSPECIFIED (4) Anterior epistaxis Code(s): R04.0 - EPISTAXIS (5) Back pain Code(s): M54.9 - DORSALGIA, UNSPECIFIED (6) Diabetes Code(s): E11.9 - TYPE 2 DIABETES MELLITUS WITHOUT COMPLICATIONS Qualifiers: Diabetes mellitus type: type 2 Assessment/Plan Current Active Problems dm 2 hyperglycemia uncontrolled Acute hypoxemic respiratory failure (Acute) Healthcare associated bacterial pneumonia (Acute) Pneumonia (Acute) Abnormal Lab Results 07/04/18 07/04/18 06:35 06:35 WBC 12.0 H Potassium 3.4 L Chloride 97 L Carbon Dioxide 36 H Anion Gap 5 L BUN 19 H Random Glucose 113 H AST 52 H Alkaline Phosphatase 175 H Albumin 2.0 L Laboratory Results - last 24 hr 07/04/18 07/04/18 07/04/18 05:33 06:35 06:35 WBC 12.0 H RBC 3.66 Hgb 11.8 Hct 33.5 MCV 91.7 MCH 32.3 MCHC 35.3 RDW 14.5 Plt Count 206 MPV 7.7 Sodium 138 Potassium 3.4 L Chloride 97 L Carbon Dioxide 36 H Anion Gap 5 L BUN 19 H Creatinine 0.8 Creat Clearance w eGFR > 60 POC Glucometer 137 Random Glucose 113 H Calcium 9.0 Total Bilirubin 1.0 AST 52 H ALT 15 Alkaline Phosphatase 175 H Total Protein 6.9 Albumin 2.0 L 07/04/18 07/04/18 07/04/18 11:36 17:17 22:47 WBC RBC Hgb Hct MCV MCH MCHC RDW Plt Count MPV Sodium Potassium Chloride Carbon Dioxide Anion Gap BUN Creatinine Creat Clearance w eGFR POC Glucometer 347 357 338 Random Glucose Calcium Total Bilirubin AST ALT Alkaline Phosphatase Total Protein Albumin plan: levemir 50 units am levemir 35 hs will need further titration dose insulin as labile control expected
[2018-07-05] MEDS ORDERED: PT OWN MED DRAWER 7, Y5N ONE ×2 (00:59→17:21)
[2018-07-05] MEDS: methylPREDNISolone NA SUCC 40 MG/1 ML VIAL IVPUSH SCH ×3 (01:57→17:39)
[2018-07-05] MEDS: CEFTAZIDIME PENTAHYDRATE 1 GM in DEXTROSE 5%-WATER - 50 ML IVPB SCH ×3 (01:57→17:23)
[2018-07-05] MEDS: CARBIDOPA/LEVODOPA 25/100 TABLET (FP) PO SCH ×3 (06:15→21:49)
[2018-07-05] MEDS: GABAPENTIN 100 MG CAPSULE (FP) PO SCH ×4 (06:15→21:51)
[2018-07-05] MEDS: FUROSEMIDE 40 MG TABLET (FP) PO SCH ×2 (06:15→15:11)
[2018-07-05] MEDS: INSULIN (LEVEMIR) 100 UNITS/ML UNITS SQ SCH ×2 (06:16→21:50)
[2018-07-05] MEDS: INSULIN SLIDING SCALE (NOVOLOG) 1 VIAL SQ SCH ×4 (06:22→21:52)
[2018-07-05 08:05] LABS: ALK PHOS 171 U/L (45-117); ANION GAP 6 MMOL/L (8-16); BILIRUBIN,TOTAL 0.7 mg/dL (0.2-1); BLOOD UREA NITROGEN 22 mg/dL (7-18); CALCIUM 9.1 mg/dL (8.5-10.1); CHLORIDE 98 mmol/L (98-107); CO2 37 mmol/L (21-32); CREATININE 0.9 mg/dL (0.55-1.3); GLUCOSE,RANDOM 243 mg/dL (74-106); POTASSIUM 3.7 mmol/L (3.5-5.1); SGOT/AST 58 U/L (15-37); SGPT/ALT 19 U/L (13-61); SODIUM 141 mmol/L (136-145); TOT PROT 6.5 g/dl (6.4-8.2)
[2018-07-05] MEDS: BUDESONIDE 0.5 MG/2 ML INH SUSP VIAL NEB SCH ×2 (09:30→21:54)
--- NOTE | 2018-07-05 10:31 | PN ---
Progress Note, Physician Chief Complaint: SOB Hemoptysis History of Present Illness: NAD On nasal O2 Seen by Pulmonary and ID Sputum + for pseudomonas-concern for pseudomonas MAC sputum AFB results pending-unable to expectorate sample - Current Medication List Current Medications: Active Medications Acetaminophen (Tylenol -) 650 mg PO Q6H PRN PRN Reason: PAIN LEVEL 4 - 6 Last Admin: 07/04/18 17:26 Dose: 650 mg Albuterol Sulfate (Ventolin 0.083% Nebulizer Soln -) 1 amp NEB Q4H PRN PRN Reason: SHORT OF BREATH/WHEEZING Aspirin (Asa -) 81 mg PO DAILY [facility] Last Admin: 07/04/18 10:03 Dose: 81 mg Atorvastatin Calcium (Lipitor -) 10 mg PO HS [facility] Last Admin: 07/04/18 22:45 Dose: 10 mg Azithromycin (Zithromax -) 500 mg PO DAILY [facility] Last Admin: 07/04/18 10:03 Dose: 500 mg Benzocaine/Menthol (Cepacol Lozenge -) 1 each MM PRN PRN PRN Reason: SORE THROAT Budesonide (Pulmicort 0.5 Mg Nebulizer -) 1 amp NEB RBID [facility] Last Admin: 07/04/18 21:40 Dose: 1 amp Carbidopa/Levodopa (Sinemet 25/100 -) 1 each PO TID [facility] Last Admin: 07/05/18 06:15 Dose: 1 each Escitalopram Oxalate (Lexapro -) 10 mg PO DAILY [facility] Last Admin: 07/04/18 10:04 Dose: 10 mg Fludrocortisone Acetate (Florinef -) 0.1 mg PO DAILY [facility] Last Admin: 07/04/18 10:04 Dose: 0.1 mg Furosemide (Lasix -) 40 mg PO BIDLASIX [facility] Last Admin: 07/05/18 06:15 Dose: 40 mg Gabapentin (Neurontin -) 100 mg PO TID [facility] Last Admin: 07/05/18 06:15 Dose: 100 mg Guaifenesin (Diabetic Tussin Dm -) 10 ml PO Q4H PRN PRN Reason: COUGH Heparin Sodium (Porcine) (Heparin -) 5,000 unit SQ BID [facility] Last Admin: 07/04/18 22:44 Dose: 5,000 unit Ceftazidime 1 gm/ Dextrose 50 mls @ 100 mls/hr IVPB Q8H-IV [facility]; Protocol Last Admin: 07/05/18 01:57 Dose: 100 mls/hr Insulin Aspart (Novolog Vial Sliding Scale -) 1 vial SQ ACHS [facility]; Protocol Last Admin: 07/05/18 06:22 Dose: 8 units Insulin Detemir (Levemir Vial) 35 units SQ HS [facility] Last Admin: 07/04/18 22:44 Dose: 35 units Insulin Detemir (Levemir Vial) 50 units SQ AM [facility] Last Admin: 07/05/18 06:16 Dose: 50 units Losartan Potassium (Cozaar -) 25 mg PO DAILY [facility] Last Admin: 07/04/18 10:04 Dose: 25 mg Methylprednisolone Sodium Succinate (Solu-Medrol -) 40 mg IVPUSH Q8H-IV [facility] Last Admin: 07/05/18 01:57 Dose: 40 mg Multivitamins/Minerals/Vitamin C (Tab-A-Vit -) 1 tab PO DAILY [facility] Last Admin: 07/04/18 10:04 Dose: 1 tab Nadolol (Corgard -) 20 mg PO DAILY [facility] Last Admin: 07/04/18 10:04 Dose: 20 mg Non-Formulary Medication (Fluticasone Furoate [Arnuity Ellipta]) 100 mcg IH DAILY [facility] Nortriptyline HCl (Pamelor -) 25 mg PO DAILY [facility] Last Admin: 07/04/18 10:05 Dose: 25 mg Nystatin (Mycostatin Cream -) 1 applic TP BID [facility] Last Admin: 07/04/18 22:45 Dose: 1 applic Pantoprazole Sodium (Protonix -) 40 mg PO DAILY [facility] Last Admin: 07/04/18 10:03 Dose: 40 mg Potassium Chloride (K-Dur -) 40 meq PO DAILY [facility] Last Admin: 07/04/18 10:03 Dose: 40 meq - Objective Vital Signs: Vital Signs Temperature 97.6 F 07/05/18 06:00 Pulse Rate 78 07/05/18 06:00 Respiratory Rate 20 07/05/18 06:00 Blood Pressure 124/71 07/05/18 06:00 O2 Sat by Pulse Oximetry (%) 94 L 07/04/18 21:00 Constitutional: Yes: Well Nourished, No Distress, Calm Cardiovascular: Yes: Regular Rate and Rhythm Respiratory: Yes: Regular Gastrointestinal: Yes: Normal Bowel Sounds, Soft Musculoskeletal: Yes: WNL Extremities: Yes: WNL Edema: No Peripheral Pulses WNL: Yes Neurological: Yes: Alert, Pre-Existing Deficit Psychiatric: Yes: Alert Labs: CBC, BMP 07/04/18 06:35 07/05/18 06:50 INR, PTT INR 1.30 (0.83-1.09) H 06/30/18 07:45 Problem List - Problems (1) Diabetes Assessment/Plan: -BGM AC HS -BG elevated 2/2 to medrol -Last a1c at 6.8 -Diabetic diet -Novolog sliding scale -Levemir Code(s): E11.9 - TYPE 2 DIABETES MELLITUS WITHOUT COMPLICATIONS Qualifiers: Diabetes mellitus type: type 2 (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 06/28/18 18:20 Blood - Peripheral Venous Blood Culture - Preliminary NO GROWTH OBTAINED AFTER 48 HOURS, INCUBATION TO CONTINUE FOR 3 DAYS. 06/29/18 10:30 Urine For Antigen Detection Legionella Antigen - Final 06/29/18 10:30 Urine For Antigen Detection Streptococcus pneumoniae Antigen (M - Final 06/28/18 18:20 Urine - Urine Clean Catch Urine Culture - Final NO GROWTH OBTAINED Code(s): A31.0 - PULMONARY MYCOBACTERIAL INFECTION (3) Anxiety Code(s): F41.9 - ANXIETY DISORDER, UNSPECIFIED (4) Hypokalemia Assessment/Plan: -resolved -monitor trend Code(s): E87.6 - HYPOKALEMIA Assessment/Plan see problem list Physical therapy
[2018-07-05] MEDS: HEPARIN NA (PORCINE) 5,000 UNITS/ML 1ML VIAL SQ SCH ×2 (10:44→21:50)
[2018-07-05] MEDS: LOSARTAN POTASSIUM 25 MG TABLET PO SCH (10:44)
[2018-07-05] MEDS: AZITHROMYCIN 250 MG TABLET PO SCH (10:44)
[2018-07-05] MEDS: ASPIRIN 81 MG CHEWABLE TABLETS PO SCH (10:44)
[2018-07-05] MEDS: MULTIVITAMINS (DAILY MVI) TABLET (FP) PO SCH (10:44)
[2018-07-05] MEDS: PANTOPRAZOLE 40 MG TABLET (FP) PO SCH (10:44)
[2018-07-05] MEDS: ESCITALOPRAM OXALATE 10 MG TABLET (FP) PO SCH (10:45)
[2018-07-05] MEDS: POTASSIUM CHLORIDE TABS 20 MEQ TABLET.ER (FP) PO SCH (10:45)
[2018-07-05] MEDS: NADOLOL 20 MG TABLET (FP) PO SCH (10:47)
[2018-07-05] MEDS: FLUDROCORTISONE ACETATE 0.1 MG TABLET (FP) PO SCH (10:47)
[2018-07-05] MEDS: NYSTATIN 100,000 UNIT/GM TOPICAL CREAM 15 GM TUBE TP SCH ×2 (10:47→21:51)
[2018-07-05] MEDS: NORTRIPTYLINE HCL 25 MG CAPSULE PO SCH (10:48)
--- NOTE | 2018-07-05 12:45 | PN ---
Progress Note, Physician History of Present Illness: pulmonary AWAKE,aLERT,STILL DYSPNEIC,MILDLY TACHYPNEIC AT REST - Current Medication List Current Medications: Active Medications Acetaminophen (Tylenol -) 650 mg PO Q6H PRN PRN Reason: PAIN LEVEL 4 - 6 Last Admin: 07/04/18 17:26 Dose: 650 mg Albuterol Sulfate (Ventolin 0.083% Nebulizer Soln -) 1 amp NEB Q4H PRN PRN Reason: SHORT OF BREATH/WHEEZING Aspirin (Asa -) 81 mg PO DAILY [facility] Last Admin: 07/05/18 10:44 Dose: 81 mg Atorvastatin Calcium (Lipitor -) 10 mg PO HS [facility] Last Admin: 07/04/18 22:45 Dose: 10 mg Azithromycin (Zithromax -) 500 mg PO DAILY [facility] Last Admin: 07/05/18 10:44 Dose: 500 mg Benzocaine/Menthol (Cepacol Lozenge -) 1 each MM PRN PRN PRN Reason: SORE THROAT Budesonide (Pulmicort 0.5 Mg Nebulizer -) 1 amp NEB RBID [facility] Last Admin: 07/05/18 09:30 Dose: 1 amp Carbidopa/Levodopa (Sinemet 25/100 -) 1 each PO TID [facility] Last Admin: 07/05/18 06:15 Dose: 1 each Escitalopram Oxalate (Lexapro -) 10 mg PO DAILY [facility] Last Admin: 07/05/18 10:45 Dose: 10 mg Fludrocortisone Acetate (Florinef -) 0.1 mg PO DAILY [facility] Last Admin: 07/05/18 10:47 Dose: 0.1 mg Furosemide (Lasix -) 40 mg PO BIDLASIX [facility] Last Admin: 07/05/18 06:15 Dose: 40 mg Gabapentin (Neurontin -) 100 mg PO TID [facility] Last Admin: 07/05/18 06:15 Dose: 100 mg Guaifenesin (Diabetic Tussin Dm -) 10 ml PO Q4H PRN PRN Reason: COUGH Heparin Sodium (Porcine) (Heparin -) 5,000 unit SQ BID [facility] Last Admin: 07/05/18 10:44 Dose: 5,000 unit Ceftazidime 1 gm/ Dextrose 50 mls @ 100 mls/hr IVPB Q8H-IV [facility]; Protocol Last Admin: 07/05/18 10:46 Dose: 100 mls/hr Insulin Aspart (Novolog Vial Sliding Scale -) 1 vial SQ ACHS [facility]; Protocol Last Admin: 07/05/18 12:14 Dose: 10 units Insulin Detemir (Levemir Vial) 35 units SQ HS [facility] Last Admin: 07/04/18 22:44 Dose: 35 units Insulin Detemir (Levemir Vial) 50 units SQ AM [facility] Last Admin: 07/05/18 06:16 Dose: 50 units Losartan Potassium (Cozaar -) 25 mg PO DAILY [facility] Last Admin: 07/05/18 10:44 Dose: 25 mg Methylprednisolone Sodium Succinate (Solu-Medrol -) 40 mg IVPUSH Q8H-IV [facility] Last Admin: 07/05/18 10:44 Dose: 40 mg Multivitamins/Minerals/Vitamin C (Tab-A-Vit -) 1 tab PO DAILY [facility] Last Admin: 07/05/18 10:44 Dose: 1 tab Nadolol (Corgard -) 20 mg PO DAILY [facility] Last Admin: 07/05/18 10:47 Dose: 20 mg Non-Formulary Medication (Fluticasone Furoate [Arnuity Ellipta]) 100 mcg IH DAILY [facility] Nortriptyline HCl (Pamelor -) 25 mg PO DAILY [facility] Last Admin: 07/05/18 10:48 Dose: 25 mg Nystatin (Mycostatin Cream -) 1 applic TP BID [facility] Last Admin: 07/05/18 10:47 Dose: 1 applic Pantoprazole Sodium (Protonix -) 40 mg PO DAILY [facility] Last Admin: 07/05/18 10:44 Dose: 40 mg Potassium Chloride (K-Dur -) 40 meq PO DAILY [facility] Last Admin: 07/05/18 10:45 Dose: 40 meq - Objective Vital Signs: Vital Signs Temperature 98.0 F 07/05/18 10:00 Pulse Rate 90 07/05/18 10:00 Respiratory Rate 18 07/05/18 10:00 Blood Pressure 145/77 07/05/18 10:00 O2 Sat by Pulse Oximetry (%) 94 L 07/04/18 21:00 Constitutional: Yes: Well Nourished, Calm, Other (DYSPNEIC) Eyes: Yes: WNL HENT: Yes: WNL Neck: Yes: WNL Cardiovascular: Yes: Regular Rate and Rhythm, S1, S2 Respiratory: Yes: Rales (BILATERAL CRACKLES AND RHONCHI), Rhonchi Gastrointestinal: Yes: Normal Bowel Sounds, Soft Extremities: Yes: WNL Edema: No Labs: CBC, BMP 07/04/18 06:35 07/05/18 06:50 INR, PTT INR 1.30 (0.83-1.09) H 06/30/18 07:45 Problem List - Problems (1) Pneumonia Code(s): J18.9 - PNEUMONIA, UNSPECIFIED ORGANISM (2) Asthma Code(s): J45.909 - UNSPECIFIED ASTHMA, UNCOMPLICATED Qualifiers: Asthma severity: unspecified severity Asthma complication type: uncomplicated (3) Breast cancer Code(s): C50.919 - MALIGNANT NEOPLASM OF UNSP SITE OF UNSPECIFIED FEMALE BREAST (4) CVA (cerebral infarction) Code(s): I63.9 - CEREBRAL INFARCTION, UNSPECIFIED Qualifiers: Cerebral infarction mechanism: unspecified mechanism Qualified Code(s): I63.9 - Cerebral infarction, unspecified (5) Coronary artery disease Code(s): I25.10 - ATHSCL HEART DISEASE OF [place] CORONARY ARTERY W/O ANG PCTRS Qualifiers: Coronary Disease-Associated Artery/Lesion type: [place] artery [place] vs. 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 Code(s): A31.0 - PULMONARY MYCOBACTERIAL INFECTION (11) S/P coronary artery stent placement Code(s): Z95.5 - PRESENCE OF CORONARY ANGIOPLASTY IMPLANT AND GRAFT (12) Shortness of breath Code(s): R06.02 - SHORTNESS OF BREATH (13) Acute hypoxemic respiratory failure Code(s): J96.01 - ACUTE RESPIRATORY FAILURE WITH HYPOXIA Assessment/Plan IMP ACUTE HYPOXEMIC RESPIRATORY FAILURE PNEUMONIA COPD/ILD BRONCHIECTASIS PULMONARY NODULES H/O MAC HLD ASHD CIRRHOSIS H/O BREAST CA H/O CVA PLAN IV ABX O2 INHALED BRONCHODILATORS MEDROL MONITOR LYTES F/U CHEST X-RAYS DR WESLEY Problem List - Problems (1) Pneumonia Code(s): J18.9 - PNEUMONIA, UNSPECIFIED ORGANISM (2) Asthma Code(s): J45.909 - UNSPECIFIED ASTHMA, UNCOMPLICATED Qualifiers: Asthma severity: unspecified severity Asthma complication type: uncomplicated (3) Breast cancer Code(s): C50.919 - MALIGNANT NEOPLASM OF UNSP SITE OF UNSPECIFIED FEMALE BREAST (4) CVA (cerebral infarction) Code(s): I63.9 - CEREBRAL INFARCTION, UNSPECIFIED Qualifiers: Cerebral infarction mechanism: unspecified mechanism Qualified Code(s): I63.9 - Cerebral infarction, unspecified (5) Coronary artery disease Code(s): I25.10 - ATHSCL HEART DISEASE OF [place] CORONARY ARTERY W/O ANG PCTRS Qualifiers: Coronary Disease-Associated Artery/Lesion type: [place] artery [place] vs. 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
[2018-07-05] MEDS ORDERED: INSULIN (NOVOLOG) ASPART 100 UNITS/ML 10ML VIAL ONE (17:22)
--- NOTE | 2018-07-05 17:28 | PN ---
Progress Note, Physician History of Present Illness: APPEARS COMFORTABLE IN BED ON NASAL CANNULA NO C/O DYSPNEA/ CHEST PAIN NO HEMOPTYSIS AFEBRILE ON STEROIDS SPUTUM C/S PSEUDOMONAS LEGIONELLA/PNEUMOCOCCAL AG (-) BC (-) FOLLOW UP CXR LOOKS BETTER- OFFICIAL READING PENDING - Current Medication List Current Medications: Active Medications Acetaminophen (Tylenol -) 650 mg PO Q6H PRN PRN Reason: PAIN LEVEL 4 - 6 Last Admin: 07/04/18 17:26 Dose: 650 mg Albuterol Sulfate (Ventolin 0.083% Nebulizer Soln -) 1 amp NEB Q4H PRN PRN Reason: SHORT OF BREATH/WHEEZING Aspirin (Asa -) 81 mg PO DAILY [facility] Last Admin: 07/05/18 10:44 Dose: 81 mg Atorvastatin Calcium (Lipitor -) 10 mg PO HS [facility] Last Admin: 07/04/18 22:45 Dose: 10 mg Azithromycin (Zithromax -) 500 mg PO DAILY [facility] Last Admin: 07/05/18 10:44 Dose: 500 mg Benzocaine/Menthol (Cepacol Lozenge -) 1 each MM PRN PRN PRN Reason: SORE THROAT Budesonide (Pulmicort 0.5 Mg Nebulizer -) 1 amp NEB RBID [facility] Last Admin: 07/05/18 09:30 Dose: 1 amp Carbidopa/Levodopa (Sinemet 25/100 -) 1 each PO TID [facility] Last Admin: 07/05/18 15:11 Dose: 1 each Escitalopram Oxalate (Lexapro -) 10 mg PO DAILY [facility] Last Admin: 07/05/18 10:45 Dose: 10 mg Fludrocortisone Acetate (Florinef -) 0.1 mg PO DAILY [facility] Last Admin: 07/05/18 10:47 Dose: 0.1 mg Furosemide (Lasix -) 40 mg PO BIDLASIX [facility] Last Admin: 07/05/18 15:11 Dose: 40 mg Gabapentin (Neurontin -) 100 mg PO TID [facility] Last Admin: 07/05/18 15:10 Dose: 100 mg Guaifenesin (Diabetic Tussin Dm -) 10 ml PO Q4H PRN PRN Reason: COUGH Heparin Sodium (Porcine) (Heparin -) 5,000 unit SQ BID [facility] Last Admin: 07/05/18 10:44 Dose: 5,000 unit Ceftazidime 1 gm/ Dextrose 50 mls @ 100 mls/hr IVPB Q8H-IV [facility]; Protocol Last Admin: 07/05/18 17:23 Dose: 100 mls/hr Insulin Aspart (Novolog Vial Sliding Scale -) 1 vial SQ ACHS [facility]; Protocol Last Admin: 07/05/18 17:22 Dose: 8 units Insulin Detemir (Levemir Vial) 35 units SQ HS [facility] Last Admin: 07/04/18 22:44 Dose: 35 units Insulin Detemir (Levemir Vial) 50 units SQ AM [facility] Last Admin: 07/05/18 06:16 Dose: 50 units Losartan Potassium (Cozaar -) 25 mg PO DAILY [facility] Last Admin: 07/05/18 10:44 Dose: 25 mg Methylprednisolone Sodium Succinate (Solu-Medrol -) 40 mg IVPUSH Q8H-IV [facility] Last Admin: 07/05/18 10:44 Dose: 40 mg Multivitamins/Minerals/Vitamin C (Tab-A-Vit -) 1 tab PO DAILY [facility] Last Admin: 07/05/18 10:44 Dose: 1 tab Nadolol (Corgard -) 20 mg PO DAILY [facility] Last Admin: 07/05/18 10:47 Dose: 20 mg Non-Formulary Medication (Fluticasone Furoate [Arnuity Ellipta]) 100 mcg IH DAILY [facility] Nortriptyline HCl (Pamelor -) 25 mg PO DAILY [facility] Last Admin: 07/05/18 10:48 Dose: 25 mg Nystatin (Mycostatin Cream -) 1 applic TP BID [facility] Last Admin: 07/05/18 10:47 Dose: 1 applic Pantoprazole Sodium (Protonix -) 40 mg PO DAILY [facility] Last Admin: 07/05/18 10:44 Dose: 40 mg Potassium Chloride (K-Dur -) 40 meq PO DAILY [facility] Last Admin: 07/05/18 10:45 Dose: 40 meq - Objective Vital Signs: Vital Signs Temperature 97.7 F 07/05/18 14:53 Pulse Rate 78 07/05/18 14:53 Respiratory Rate 18 07/05/18 14:53 Blood Pressure 119/65 07/05/18 14:53 O2 Sat by Pulse Oximetry (%) 94 L 07/04/18 21:00 Constitutional: Yes: No Distress, Cachectic Cardiovascular: Yes: Regular Rate and Rhythm, S1, S2 Respiratory: Yes: Other (+ B/L RHONCHI/ WHEEZE) Gastrointestinal: Yes: Normal Bowel Sounds, Soft. No: Tenderness Edema: No Labs: CBC, BMP 07/04/18 06:35 07/05/18 06:50 INR, PTT INR 1.30 (0.83-1.09) H 06/30/18 07:45 Assessment/Plan WORSENING BILATERAL INFILTRATES ? PSEUDOMONAS ? MAC EXACERBATION COPD CHRONIC LIVER DISEASE CONTINUE EMPIRIC CEFTAZIDIME/ ZITHROMAX SP[employer]
[2018-07-05] MEDS: ATORVASTATIN CA 10 MG TABLET (FP) PO SCH (21:50)
[2018-07-06] MEDS ORDERED: PT OWN MED DRAWER 7, Y5N ONE (00:43)
[2018-07-06] MEDS: CEFTAZIDIME PENTAHYDRATE 1 GM in DEXTROSE 5%-WATER - 50 ML IVPB SCH ×3 (02:06→17:29)
[2018-07-06] MEDS: methylPREDNISolone NA SUCC 40 MG/1 ML VIAL IVPUSH SCH ×4 (02:06→23:35)
[2018-07-06] MEDS: GABAPENTIN 100 MG CAPSULE (FP) PO SCH ×3 (06:26→23:32)
[2018-07-06] MEDS: FUROSEMIDE 40 MG TABLET (FP) PO SCH ×2 (06:26→14:48)
[2018-07-06] MEDS: CARBIDOPA/LEVODOPA 25/100 TABLET (FP) PO SCH ×3 (06:26→23:32)
[2018-07-06] MEDS: INSULIN (LEVEMIR) 100 UNITS/ML UNITS SQ SCH ×2 (06:27→23:31)
[2018-07-06] MEDS: INSULIN SLIDING SCALE (NOVOLOG) 1 VIAL SQ SCH ×4 (06:28→23:33)
--- NOTE | 2018-07-06 07:04 | FALL ---
Fall Exam - Event Witnessed fall: No Location of Fall: Patient Room Fall from: Bed - Pre-Fall Mental Status: Alert Current Medications: Current Medications Generic Name Dose Route Start Last Admin Trade Name Freq PRN Reason Stop Dose Admin Acetaminophen 650 mg 06/29/18 06:06 07/04/18 17:26 Tylenol - PO 650 mg Q6H PRN Administration PAIN LEVEL 4 - 6 Albuterol Sulfate 1 amp 06/29/18 19:08 Ventolin 0.083% Nebulizer Soln - NEB Q4H PRN SHORT OF BREATH/WHEEZING Aspirin 81 mg 06/29/18 10:00 07/05/18 10:44 Asa - PO 81 mg DAILY [facility] Administration Atorvastatin Calcium 10 mg 06/29/18 22:00 07/05/18 21:50 Lipitor - PO 10 mg HS [facility] Administration Azithromycin 500 mg 06/29/18 16:15 07/05/18 10:44 Zithromax - PO 500 mg DAILY [facility] Administration Benzocaine/Menthol 1 each 07/02/18 11:28 Cepacol Lozenge - MM PRN PRN SORE THROAT Budesonide 1 amp 06/29/18 08:00 07/05/18 21:54 Pulmicort 0.5 Mg Nebulizer - NEB 1 amp RBID [facility] Administration Carbidopa/Levodopa 1 each 06/29/18 06:15 07/06/18 06:26 Sinemet 25/100 - PO 1 each TID [facility] Administration Escitalopram Oxalate 10 mg 06/29/18 10:00 07/05/18 10:45 Lexapro - PO 10 mg DAILY [facility] Administration Fludrocortisone Acetate 0.1 mg 06/29/18 10:00 07/05/18 10:47 Florinef - PO 0.1 mg DAILY [facility] Administration Furosemide 40 mg 06/29/18 06:15 07/06/18 06:26 Lasix - PO 40 mg BIDLASIX [facility] Administration Gabapentin 100 mg 06/29/18 06:15 07/06/18 06:26 Neurontin - PO 100 mg TID [facility] Administration Guaifenesin 10 ml 07/02/18 11:28 Diabetic Tussin Dm - PO Q4H PRN COUGH Heparin Sodium (Porcine) 5,000 unit 06/29/18 10:00 07/05/18 21:50 Heparin - SQ 5,000 unit BID [facility] Administration Ceftazidime 1 gm/ Dextrose 50 mls @ 100 mls/hr 06/29/18 18:00 07/06/18 02:06 IVPB 100 mls/hr Q8H-IV [facility] Administration Protocol Insulin Aspart 1 vial 07/02/18 12:36 07/06/18 06:28 Novolog Vial Sliding Scale - SQ Not Given ACHS [facility] Protocol Insulin Detemir 35 units 07/02/18 12:36 07/05/18 21:50 Levemir Vial SQ 35 units HS [facility] Administration Insulin Detemir 50 units 07/05/18 07:00 07/06/18 06:27 Levemir Vial SQ 50 units AM [facility] Administration Losartan Potassium 25 mg 06/29/18 10:00 07/05/18 10:44 Cozaar - PO 25 mg DAILY [facility] Administration Methylprednisolone Sodium Succinate 40 mg 07/04/18 18:00 07/06/18 02:06 Solu-Medrol - IVPUSH 40 mg Q8H-IV [facility] Administration Multivitamins/Minerals/Vitamin C 1 tab 07/01/18 10:00 07/05/18 10:44 Tab-A-Vit - PO 1 tab DAILY [facility] Administration Nadolol 20 mg 06/29/18 10:00 07/05/18 10:47 Corgard - PO 20 mg DAILY [facility] Administration Nortriptyline HCl 25 mg 06/29/18 10:00 07/05/18 10:48 Pamelor - PO 25 mg DAILY [facility] Administration Nystatin 1 applic 07/03/18 22:00 07/05/18 21:51 Mycostatin Cream - TP 1 applic BID [facility] Administration Pantoprazole Sodium 40 mg 06/29/18 10:00 07/05/18 10:44 Protonix - PO 40 mg DAILY [facility] Administration Potassium Chloride 40 meq 06/30/18 12:30 07/05/18 10:45 K-Dur - PO 40 meq DAILY [facility] Administration - Post-Fall Patient Outcome: No Injury Exam Findings: awake, alert, confused (baseline as per nursing staff). Motor strength 5/5, sensation intact Treatment: None Vital Signs: Vital Signs Temperature 97.4 F L 07/05/18 18:00 Pulse Rate 73 07/06/18 00:00 Respiratory Rate 18 07/06/18 00:00 Blood Pressure 136/84 07/06/18 00:00 O2 Sat by Pulse Oximetry (%) 94 L 07/05/18 21:00 LOC Post-Fall: Awake, Alert Identify factors for HIGH RISK for Head Injury: Pt on anticoagulant
[2018-07-06] MEDS: BUDESONIDE 0.5 MG/2 ML INH SUSP VIAL NEB SCH ×2 (09:00→20:10)
--- NOTE | 2018-07-06 10:48 | PN ---
Progress Note (short form) - Note Progress Note: PULMONARY Breathing continues to improve. Fell overnight. Vital Signs Period Temp Pulse Resp BP Sys/Donovan Pulse Ox Last 24 Hr 97.4 F-97.9 F 62-99 18-22 119-142/65-84 94 Gen: less tachypneic at rest Heart: RRR Lung: scattered rhonchi Abd: soft, nontender Ext: no edema CBC, BMP 07/04/18 06:35 07/05/18 06:50 Active Medications Acetaminophen (Tylenol -) 650 mg PO Q6H PRN PRN Reason: PAIN LEVEL 4 - 6 Last Admin: 07/04/18 17:26 Dose: 650 mg Albuterol Sulfate (Ventolin 0.083% Nebulizer Soln -) 1 amp NEB Q4H PRN PRN Reason: SHORT OF BREATH/WHEEZING Aspirin (Asa -) 81 mg PO DAILY [facility] Last Admin: 07/05/18 10:44 Dose: 81 mg Atorvastatin Calcium (Lipitor -) 10 mg PO HS [facility] Last Admin: 07/05/18 21:50 Dose: 10 mg Azithromycin (Zithromax -) 500 mg PO DAILY [facility] Last Admin: 07/05/18 10:44 Dose: 500 mg Benzocaine/Menthol (Cepacol Lozenge -) 1 each MM PRN PRN PRN Reason: SORE THROAT Budesonide (Pulmicort 0.5 Mg Nebulizer -) 1 amp NEB RBID [facility] Last Admin: 07/06/18 09:00 Dose: Not Given Carbidopa/Levodopa (Sinemet 25/100 -) 1 each PO TID [facility] Last Admin: 07/06/18 06:26 Dose: 1 each Escitalopram Oxalate (Lexapro -) 10 mg PO DAILY [facility] Last Admin: 07/05/18 10:45 Dose: 10 mg Fludrocortisone Acetate (Florinef -) 0.1 mg PO DAILY [facility] Last Admin: 07/05/18 10:47 Dose: 0.1 mg Furosemide (Lasix -) 40 mg PO BIDLASIX [facility] Last Admin: 07/06/18 06:26 Dose: 40 mg Gabapentin (Neurontin -) 100 mg PO TID [facility] Last Admin: 07/06/18 06:26 Dose: 100 mg Guaifenesin (Diabetic Tussin Dm -) 10 ml PO Q4H PRN PRN Reason: COUGH Heparin Sodium (Porcine) (Heparin -) 5,000 unit SQ BID [facility] Last Admin: 07/05/18 21:50 Dose: 5,000 unit Ceftazidime 1 gm/ Dextrose 50 mls @ 100 mls/hr IVPB Q8H-IV [facility]; Protocol Last Admin: 07/06/18 02:06 Dose: 100 mls/hr Insulin Aspart (Novolog Vial Sliding Scale -) 1 vial SQ ACHS [facility]; Protocol Last Admin: 07/06/18 06:28 Dose: Not Given Insulin Detemir (Levemir Vial) 35 units SQ HS [facility] Last Admin: 07/05/18 21:50 Dose: 35 units Insulin Detemir (Levemir Vial) 50 units SQ AM [facility] Last Admin: 07/06/18 06:27 Dose: 50 units Losartan Potassium (Cozaar -) 25 mg PO DAILY [facility] Last Admin: 07/05/18 10:44 Dose: 25 mg Methylprednisolone Sodium Succinate (Solu-Medrol -) 40 mg IVPUSH Q8H-IV [facility] Last Admin: 07/06/18 02:06 Dose: 40 mg Multivitamins/Minerals/Vitamin C (Tab-A-Vit -) 1 tab PO DAILY [facility] Last Admin: 07/05/18 10:44 Dose: 1 tab Nadolol (Corgard -) 20 mg PO DAILY [facility] Last Admin: 07/05/18 10:47 Dose: 20 mg Nortriptyline HCl (Pamelor -) 25 mg PO DAILY [facility] Last Admin: 07/05/18 10:48 Dose: 25 mg Nystatin (Mycostatin Cream -) 1 applic TP BID [facility] Last Admin: 07/05/18 21:51 Dose: 1 applic Pantoprazole Sodium (Protonix -) 40 mg PO DAILY [facility] Last Admin: 07/05/18 10:44 Dose: 40 mg Potassium Chloride (K-Dur -) 40 meq PO DAILY [facility] Last Admin: 07/05/18 10:45 Dose: 40 meq A/P Acute Hypoxic Respiratory Failure Pneumonia h/o Atypical Mycobacterial Infection CAD Liver Cirrhosis Hyperlipidemia - continue antibiotics per ID - will decrease medrol to q12h - inhaled bronchodilators standing and PRN - O2 to keep SpO2 >90% - glucose control while on systemic steroids - DVT prophylaxis
[2018-07-06] MEDS: AZITHROMYCIN 250 MG TABLET PO SCH (11:25)
[2018-07-06] MEDS: ASPIRIN 81 MG CHEWABLE TABLETS PO SCH (11:26)
[2018-07-06] MEDS: POTASSIUM CHLORIDE TABS 20 MEQ TABLET.ER (FP) PO SCH (11:27)
[2018-07-06] MEDS: PANTOPRAZOLE 40 MG TABLET (FP) PO SCH (11:27)
[2018-07-06] MEDS: ESCITALOPRAM OXALATE 10 MG TABLET (FP) PO SCH (11:27)
[2018-07-06] MEDS: HEPARIN NA (PORCINE) 5,000 UNITS/ML 1ML VIAL SQ SCH ×2 (11:28→23:32)
[2018-07-06] MEDS: LOSARTAN POTASSIUM 25 MG TABLET PO SCH (11:29)
[2018-07-06] MEDS: NADOLOL 20 MG TABLET (FP) PO SCH (11:30)
[2018-07-06] MEDS: MULTIVITAMINS (DAILY MVI) TABLET (FP) PO SCH (11:30)
[2018-07-06] MEDS: FLUDROCORTISONE ACETATE 0.1 MG TABLET (FP) PO SCH (11:31)
[2018-07-06] MEDS: NYSTATIN 100,000 UNIT/GM TOPICAL CREAM 15 GM TUBE TP SCH ×2 (11:31→23:33)
[2018-07-06] MEDS: NORTRIPTYLINE HCL 25 MG CAPSULE PO SCH (11:31)
--- NOTE | 2018-07-06 12:52 | PN ---
Progress Note, Physician - Current Medication List Current Medications: Active Medications Acetaminophen (Tylenol -) 650 mg PO Q6H PRN PRN Reason: PAIN LEVEL 4 - 6 Last Admin: 07/04/18 17:26 Dose: 650 mg Albuterol Sulfate (Ventolin 0.083% Nebulizer Soln -) 1 amp NEB Q4H PRN PRN Reason: SHORT OF BREATH/WHEEZING Aspirin (Asa -) 81 mg PO DAILY [facility] Last Admin: 07/05/18 10:44 Dose: 81 mg Atorvastatin Calcium (Lipitor -) 10 mg PO HS [facility] Last Admin: 07/05/18 21:50 Dose: 10 mg Azithromycin (Zithromax -) 500 mg PO DAILY [facility] Last Admin: 07/05/18 10:44 Dose: 500 mg Benzocaine/Menthol (Cepacol Lozenge -) 1 each MM PRN PRN PRN Reason: SORE THROAT Budesonide (Pulmicort 0.5 Mg Nebulizer -) 1 amp NEB RBID [facility] Last Admin: 07/06/18 09:00 Dose: Not Given Carbidopa/Levodopa (Sinemet 25/100 -) 1 each PO TID [facility] Last Admin: 07/06/18 06:26 Dose: 1 each Escitalopram Oxalate (Lexapro -) 10 mg PO DAILY [facility] Last Admin: 07/05/18 10:45 Dose: 10 mg Fludrocortisone Acetate (Florinef -) 0.1 mg PO DAILY [facility] Last Admin: 07/05/18 10:47 Dose: 0.1 mg Furosemide (Lasix -) 40 mg PO BIDLASIX [facility] Last Admin: 07/06/18 06:26 Dose: 40 mg Gabapentin (Neurontin -) 100 mg PO TID [facility] Last Admin: 07/06/18 06:26 Dose: 100 mg Guaifenesin (Diabetic Tussin Dm -) 10 ml PO Q4H PRN PRN Reason: COUGH Heparin Sodium (Porcine) (Heparin -) 5,000 unit SQ BID [facility] Last Admin: 07/05/18 21:50 Dose: 5,000 unit Ceftazidime 1 gm/ Dextrose 50 mls @ 100 mls/hr IVPB Q8H-IV [facility]; Protocol Last Admin: 07/06/18 02:06 Dose: 100 mls/hr Insulin Aspart (Novolog Vial Sliding Scale -) 1 vial SQ ACHS [facility]; Protocol Last Admin: 07/06/18 06:28 Dose: Not Given Insulin Detemir (Levemir Vial) 35 units SQ HS [facility] Last Admin: 07/05/18 21:50 Dose: 35 units Insulin Detemir (Levemir Vial) 50 units SQ AM [facility] Last Admin: 07/06/18 06:27 Dose: 50 units Losartan Potassium (Cozaar -) 25 mg PO DAILY [facility] Last Admin: 07/05/18 10:44 Dose: 25 mg Methylprednisolone Sodium Succinate (Solu-Medrol -) 40 mg IVPUSH BID [facility] Multivitamins/Minerals/Vitamin C (Tab-A-Vit -) 1 tab PO DAILY [facility] Last Admin: 07/05/18 10:44 Dose: 1 tab Nadolol (Corgard -) 20 mg PO DAILY [facility] Last Admin: 07/05/18 10:47 Dose: 20 mg Nortriptyline HCl (Pamelor -) 25 mg PO DAILY [facility] Last Admin: 07/05/18 10:48 Dose: 25 mg Nystatin (Mycostatin Cream -) 1 applic TP BID [facility] Last Admin: 07/05/18 21:51 Dose: 1 applic Pantoprazole Sodium (Protonix -) 40 mg PO DAILY [facility] Last Admin: 07/05/18 10:44 Dose: 40 mg Potassium Chloride (K-Dur -) 40 meq PO DAILY [facility] Last Admin: 07/05/18 10:45 Dose: 40 meq - Objective Vital Signs: Vital Signs Temperature 97.9 F 07/06/18 07:04 Pulse Rate 99 H 07/06/18 07:04 Respiratory Rate 22 H 07/06/18 07:04 Blood Pressure 142/79 07/06/18 07:04 O2 Sat by Pulse Oximetry (%) 94 L 07/05/18 21:00 Constitutional: Yes: Calm Cardiovascular: Yes: Regular Rate and Rhythm, S1, S2 Respiratory: Yes: Other (crackles) Gastrointestinal: Yes: Normal Bowel Sounds, Soft Edema: No Neurological: Yes: Alert Labs: CBC, BMP 07/04/18 06:35 07/05/18 06:50 INR, PTT INR 1.30 (0.83-1.09) H 06/30/18 07:45 Problem List - Problems (1) Healthcare associated bacterial pneumonia Assessment/Plan: id and pulm consult appreciated on fortaz and azithromax ct chest increase bilateral airspace disease with opacities broad specutrum abx pcn,quinolones ,sulfa allergies dvt ppx Microbiology 06/28/18 03:19 Sputum - Expectorated Gram Stain - Final 06/28/18 03:19 Sputum - Expectorated Sputum Culture - Final Pseudomonas Aeruginosa Code(s): J15.9 - UNSPECIFIED BACTERIAL PNEUMONIA (2) Cough Assessment/Plan: fortaz and azithromycin Microbiology 06/29/18 10:30 Urine For Antigen Detection Legionella Antigen - Final 06/29/18 10:30 Urine For Antigen Detection Streptococcus pneumoniae Antigen (M - Final 06/28/18 18:20 Urine - Urine Clean Catch Urine Culture - Final NO GROWTH OBTAINED 06/28/18 03:19 Sputum - Expectorated Gram Stain - Final 06/28/18 18:32 Blood - Peripheral Venous Blood Culture - Preliminary NO GROWTH OBTAINED AFTER 24 HOURS, INCUBATION TO CONTINUE FOR 4 DAYS. 06/28/18 18:20 Blood - Peripheral Venous Blood Culture - Preliminary NO GROWTH OBTAINED AFTER 24 HOURS, INCUBATION TO CONTINUE FOR 4 DAYS. 06/28/18 03:19 Sputum - Expectorated Sputum Culture - Preliminary Pseudomonas Species steroids iv 40 q8hr Code(s): R05 - COUGH (3) Electrolyte abnormality Assessment/Plan: potasium repleted Code(s): E87.8 - OTH DISORDERS OF ELECTROLYTE AND FLUID BALANCE, NEC (4) Diabetes Assessment/Plan: sliding scale levemir taper the steroids to q12hr Code(s): E11.9 - TYPE 2 DIABETES MELLITUS WITHOUT COMPLICATIONS Qualifiers: Diabetes mellitus type: type 2
[2018-07-06] MEDS: ATORVASTATIN CA 10 MG TABLET (FP) PO SCH (23:32)
[2018-07-07] MEDS ORDERED: PT OWN MED DRAWER 7, Y5N ONE ×3 (00:57→15:43)
[2018-07-07] MEDS: CEFTAZIDIME PENTAHYDRATE 1 GM in DEXTROSE 5%-WATER - 50 ML IVPB SCH ×3 (02:11→17:16)
[2018-07-07] MEDS: GABAPENTIN 100 MG CAPSULE (FP) PO SCH ×2 (06:36→15:46)
[2018-07-07] MEDS: INSULIN SLIDING SCALE (NOVOLOG) 1 VIAL SQ SCH ×3 (06:36→17:16)
[2018-07-07] MEDS: CARBIDOPA/LEVODOPA 25/100 TABLET (FP) PO SCH ×2 (06:36→15:46)
[2018-07-07] MEDS: FUROSEMIDE 40 MG TABLET (FP) PO SCH ×2 (06:36→15:45)
[2018-07-07] MEDS: INSULIN (LEVEMIR) 100 UNITS/ML UNITS SQ SCH (06:44)
[2018-07-07] MEDS ORDERED: INSULIN (NOVOLOG) ASPART 100 UNITS/ML 10ML VIAL ONE (07:30)
[2018-07-07] MEDS: BUDESONIDE 0.5 MG/2 ML INH SUSP VIAL NEB SCH (08:16)
[2018-07-07] MEDS: methylPREDNISolone NA SUCC 40 MG/1 ML VIAL IVPUSH SCH (09:52)
[2018-07-07] MEDS: HEPARIN NA (PORCINE) 5,000 UNITS/ML 1ML VIAL SQ SCH (09:57)
[2018-07-07] MEDS: POTASSIUM CHLORIDE TABS 20 MEQ TABLET.ER (FP) PO SCH (09:58)
[2018-07-07] MEDS: MULTIVITAMINS (DAILY MVI) TABLET (FP) PO SCH (09:58)
[2018-07-07] MEDS: LOSARTAN POTASSIUM 25 MG TABLET PO SCH (09:59)
[2018-07-07] MEDS: AZITHROMYCIN 250 MG TABLET PO SCH (09:59)
[2018-07-07] MEDS: ESCITALOPRAM OXALATE 10 MG TABLET (FP) PO SCH (09:59)
[2018-07-07] MEDS: PANTOPRAZOLE 40 MG TABLET (FP) PO SCH (09:59)
[2018-07-07] MEDS: FLUDROCORTISONE ACETATE 0.1 MG TABLET (FP) PO SCH (10:00)
[2018-07-07] MEDS: NADOLOL 20 MG TABLET (FP) PO SCH (10:01)
[2018-07-07] MEDS: NORTRIPTYLINE HCL 25 MG CAPSULE PO SCH (10:01)
[2018-07-07] MEDS: ASPIRIN 81 MG CHEWABLE TABLETS PO SCH (10:01)
[2018-07-07] MEDS: ACETAMINOPHEN 325 MG TABLET (FP) PO PRN (10:03)
--- NOTE | 2018-07-07 10:46 | PN ---
Progress Note, Physician Chief Complaint: SOB Hemoptysis History of Present Illness: NAD On nasal O2 Seen by Pulmonary and ID Sputum + for pseudomonas-concern for pseudomonas MAC sputum AFB results pending-unable to expectorate sample Fell yesterday am-CT head negative Breathing improving on medrol - Current Medication List Current Medications: Active Medications Acetaminophen (Tylenol -) 650 mg PO Q6H PRN PRN Reason: PAIN LEVEL 4 - 6 Last Admin: 07/07/18 10:03 Dose: 650 mg Albuterol Sulfate (Ventolin 0.083% Nebulizer Soln -) 1 amp NEB Q4H PRN PRN Reason: SHORT OF BREATH/WHEEZING Last Admin: 07/06/18 20:20 Dose: 1 amp Aspirin (Asa -) 81 mg PO DAILY [facility] Last Admin: 07/07/18 10:01 Dose: 81 mg Atorvastatin Calcium (Lipitor -) 10 mg PO HS [facility] Last Admin: 07/06/18 23:32 Dose: 10 mg Azithromycin (Zithromax -) 500 mg PO DAILY [facility] Last Admin: 07/07/18 09:59 Dose: 500 mg Benzocaine/Menthol (Cepacol Lozenge -) 1 each MM PRN PRN PRN Reason: SORE THROAT Budesonide (Pulmicort 0.5 Mg Nebulizer -) 1 amp NEB RBID [facility] Last Admin: 07/07/18 08:16 Dose: 1 amp Carbidopa/Levodopa (Sinemet 25/100 -) 1 each PO TID [facility] Last Admin: 07/07/18 06:36 Dose: 1 each Escitalopram Oxalate (Lexapro -) 10 mg PO DAILY [facility] Last Admin: 07/07/18 09:59 Dose: 10 mg Fludrocortisone Acetate (Florinef -) 0.1 mg PO DAILY [facility] Last Admin: 07/07/18 10:00 Dose: 0.1 mg Furosemide (Lasix -) 40 mg PO BIDLASIX [facility] Last Admin: 07/07/18 06:36 Dose: 40 mg Gabapentin (Neurontin -) 100 mg PO TID [facility] Last Admin: 07/07/18 06:36 Dose: 100 mg Guaifenesin (Diabetic Tussin Dm -) 10 ml PO Q4H PRN PRN Reason: COUGH Heparin Sodium (Porcine) (Heparin -) 5,000 unit SQ BID [facility] Last Admin: 07/07/18 09:57 Dose: 5,000 unit Ceftazidime 1 gm/ Dextrose 50 mls @ 100 mls/hr IVPB Q8H-IV [facility]; Protocol Last Admin: 07/07/18 09:52 Dose: 100 mls/hr Insulin Aspart (Novolog Vial Sliding Scale -) 1 vial SQ ACHS [facility]; Protocol Last Admin: 07/07/18 06:36 Dose: Not Given Insulin Detemir (Levemir Vial) 35 units SQ HS [facility] Last Admin: 07/06/18 23:31 Dose: 35 units Insulin Detemir (Levemir Vial) 50 units SQ AM [facility] Last Admin: 07/07/18 06:44 Dose: Not Given Losartan Potassium (Cozaar -) 25 mg PO DAILY [facility] Last Admin: 07/07/18 09:59 Dose: 25 mg Methylprednisolone Sodium Succinate (Solu-Medrol -) 40 mg IVPUSH BID [facility] Last Admin: 07/07/18 09:52 Dose: 40 mg Multivitamins/Minerals/Vitamin C (Tab-A-Vit -) 1 tab PO DAILY [facility] Last Admin: 07/07/18 09:58 Dose: 1 tab Nadolol (Corgard -) 20 mg PO DAILY [facility] Last Admin: 07/07/18 10:01 Dose: 20 mg Nortriptyline HCl (Pamelor -) 25 mg PO DAILY [facility] Last Admin: 07/07/18 10:01 Dose: 25 mg Nystatin (Mycostatin Cream -) 1 applic TP BID [facility] Last Admin: 07/06/18 23:33 Dose: 1 applic Pantoprazole Sodium (Protonix -) 40 mg PO DAILY [facility] Last Admin: 07/07/18 09:59 Dose: 40 mg Potassium Chloride (K-Dur -) 40 meq PO DAILY [facility] Last Admin: 07/07/18 09:58 Dose: 40 meq - Objective Vital Signs: Vital Signs Temperature 98.0 F 07/07/18 06:00 Pulse Rate 73 07/07/18 06:00 Respiratory Rate 18 07/07/18 06:00 Blood Pressure 127/67 07/07/18 06:00 O2 Sat by Pulse Oximetry (%) 95 07/06/18 21:00 Constitutional: Yes: Well Nourished, No Distress, Calm Cardiovascular: Yes: Regular Rate and Rhythm Respiratory: Yes: Regular, Wheezes (diffuse BL) Gastrointestinal: Yes: WNL Musculoskeletal: Yes: Muscle Weakness Extremities: Yes: WNL Edema: No Peripheral Pulses WNL: Yes Neurological: Yes: Alert, Pre-Existing Deficit Psychiatric: Yes: Alert Labs: CBC, BMP 07/04/18 06:35 07/05/18 06:50 INR, PTT INR 1.30 (0.83-1.09) H 06/30/18 07:45 Problem List - Problems (1) Diabetes Assessment/Plan: -BGM AC HS -BG elevated 2/2 to medrol -Last a1c at 6.8 -Diabetic diet -Novolog sliding scale -Levemir -repeat A1c today Code(s): E11.9 - TYPE 2 DIABETES MELLITUS WITHOUT COMPLICATIONS Qualifiers: Diabetes mellitus type: type 2 (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 06/28/18 18:20 Blood - Peripheral Venous Blood Culture - Preliminary NO GROWTH OBTAINED AFTER 48 HOURS, INCUBATION TO CONTINUE FOR 3 DAYS. 06/29/18 10:30 Urine For Antigen Detection Legionella Antigen - Final 06/29/18 10:30 Urine For Antigen Detection Streptococcus pneumoniae Antigen (M - Final 06/28/18 18:20 Urine - Urine Clean Catch Urine Culture - Final NO GROWTH OBTAINED Code(s): A31.0 - PULMONARY MYCOBACTERIAL INFECTION (3) Anxiety Code(s): F41.9 - ANXIETY DISORDER, UNSPECIFIED (4) Hypokalemia Assessment/Plan: -resolved -monitor trend Code(s): E87.6 - HYPOKALEMIA Assessment/Plan see problem list Physical therapy- did poorly, candidate for SNF
[2018-07-07] MEDS: NYSTATIN 100,000 UNIT/GM TOPICAL CREAM 15 GM TUBE TP SCH (11:28)
--- NOTE | 2018-07-07 11:35 | PN ---
Progress Note, Physician History of Present Illness: OOB IN CHAIR APPEARS COMFORTABLE ON NASAL CANNULA NO C/O DYSPNEA/ CHEST PAIN NO HEMOPTYSIS AFEBRILE ON STEROIDS SPUTUM C/S PSEUDOMONAS LEGIONELLA/PNEUMOCOCCAL AG (-) BC (-) - Current Medication List Current Medications: Active Medications Acetaminophen (Tylenol -) 650 mg PO Q6H PRN PRN Reason: PAIN LEVEL 4 - 6 Last Admin: 07/07/18 10:03 Dose: 650 mg Albuterol Sulfate (Ventolin 0.083% Nebulizer Soln -) 1 amp NEB Q4H PRN PRN Reason: SHORT OF BREATH/WHEEZING Last Admin: 07/06/18 20:20 Dose: 1 amp Aspirin (Asa -) 81 mg PO DAILY [facility] Last Admin: 07/07/18 10:01 Dose: 81 mg Atorvastatin Calcium (Lipitor -) 10 mg PO HS [facility] Last Admin: 07/06/18 23:32 Dose: 10 mg Azithromycin (Zithromax -) 500 mg PO DAILY [facility] Last Admin: 07/07/18 09:59 Dose: 500 mg Benzocaine/Menthol (Cepacol Lozenge -) 1 each MM PRN PRN PRN Reason: SORE THROAT Budesonide (Pulmicort 0.5 Mg Nebulizer -) 1 amp NEB RBID [facility] Last Admin: 07/07/18 08:16 Dose: 1 amp Carbidopa/Levodopa (Sinemet 25/100 -) 1 each PO TID [facility] Last Admin: 07/07/18 06:36 Dose: 1 each Escitalopram Oxalate (Lexapro -) 10 mg PO DAILY [facility] Last Admin: 07/07/18 09:59 Dose: 10 mg Fludrocortisone Acetate (Florinef -) 0.1 mg PO DAILY [facility] Last Admin: 07/07/18 10:00 Dose: 0.1 mg Furosemide (Lasix -) 40 mg PO BIDLASIX [facility] Last Admin: 07/07/18 06:36 Dose: 40 mg Gabapentin (Neurontin -) 100 mg PO TID [facility] Last Admin: 07/07/18 06:36 Dose: 100 mg Guaifenesin (Diabetic Tussin Dm -) 10 ml PO Q4H PRN PRN Reason: COUGH Heparin Sodium (Porcine) (Heparin -) 5,000 unit SQ BID [facility] Last Admin: 07/07/18 09:57 Dose: 5,000 unit Ceftazidime 1 gm/ Dextrose 50 mls @ 100 mls/hr IVPB Q8H-IV [facility]; Protocol Last Admin: 07/07/18 09:52 Dose: 100 mls/hr Insulin Aspart (Novolog Vial Sliding Scale -) 1 vial SQ ACHS [facility]; Protocol Last Admin: 07/07/18 11:28 Dose: 6 units Insulin Detemir (Levemir Vial) 35 units SQ HS [facility] Last Admin: 07/06/18 23:31 Dose: 35 units Insulin Detemir (Levemir Vial) 50 units SQ AM [facility] Last Admin: 07/07/18 06:44 Dose: Not Given Losartan Potassium (Cozaar -) 25 mg PO DAILY [facility] Last Admin: 07/07/18 09:59 Dose: 25 mg Methylprednisolone Sodium Succinate (Solu-Medrol -) 40 mg IVPUSH BID [facility] Last Admin: 07/07/18 09:52 Dose: 40 mg Multivitamins/Minerals/Vitamin C (Tab-A-Vit -) 1 tab PO DAILY [facility] Last Admin: 07/07/18 09:58 Dose: 1 tab Nadolol (Corgard -) 20 mg PO DAILY [facility] Last Admin: 07/07/18 10:01 Dose: 20 mg Nortriptyline HCl (Pamelor -) 25 mg PO DAILY [facility] Last Admin: 07/07/18 10:01 Dose: 25 mg Nystatin (Mycostatin Cream -) 1 applic TP BID [facility] Last Admin: 07/07/18 11:28 Dose: 1 applic Pantoprazole Sodium (Protonix -) 40 mg PO DAILY [facility] Last Admin: 07/07/18 09:59 Dose: 40 mg Potassium Chloride (K-Dur -) 40 meq PO DAILY [facility] Last Admin: 07/07/18 09:58 Dose: 40 meq - Objective Vital Signs: Vital Signs Temperature 98.0 F 07/07/18 06:00 Pulse Rate 73 07/07/18 06:00 Respiratory Rate 18 07/07/18 06:00 Blood Pressure 127/67 07/07/18 06:00 O2 Sat by Pulse Oximetry (%) 95 07/06/18 21:00 Constitutional: Yes: No Distress Cardiovascular: Yes: Regular Rate and Rhythm, S1, S2 Respiratory: Yes: Other (DECREASED RONCHI AND CREPITATIONS BILATERALLY) Gastrointestinal: Yes: Normal Bowel Sounds, Soft. No: Tenderness Labs: CBC, BMP 07/04/18 06:35 07/05/18 06:50 INR, PTT INR 1.30 (0.83-1.09) H 06/30/18 07:45 Assessment/Plan WORSENING BILATERAL INFILTRATES ? PSEUDOMONAS ? MAC EXACERBATION COPD CHRONIC LIVER DISEASE ADVISE PICC FOR OUTPATIENT ANTIBIOTICS CEFTAZIDIME 1GM IVPB Q8H X 10D OUTPATIENT F/U CT CHEST AND PULMONARY EVALUATION OUTPATIENT SPUTUM FOR MAC
[2018-07-07 11:59] LABS: BASO % 0.4 % (0-2.0); HEMATOCRIT 36.4 % (32.4-45.2); HEMOGLOBIN 12.5 GM/dL (10.7-15.3); LYMPH % 3.4 % (8-40); MCH 32.6 pg (25.7-33.7); MCHC 34.2 g/dl (32.0-36.0); MEAN CELL VOLUME 95.3 fl (80-96); MEAN PLT VOLUME 8.5 fl (7.5-11.1); MONO % 3.7 % (3.8-10.2); NEUT % 92.5 % (42.8-82.8); PLATELET COUNT 143 K/MM3 (134-434); RBC 3.82 M/mm3 (3.60-5.2); RDW 15.4 % (11.6-15.6); WHITE BLOOD COUNT 23.4 K/mm3 (4.0-10.0)
--- NOTE | 2018-07-07 11:59 | DS ---
Physical Examination Vital Signs: Vital Signs Temperature 98.0 F 07/07/18 06:00 Pulse Rate 73 07/07/18 06:00 Respiratory Rate 18 07/07/18 06:00 Blood Pressure 127/67 07/07/18 06:00 O2 Sat by Pulse Oximetry (%) 95 07/06/18 21:00 Findings/Remarks: This is a 77 y/o woman from [facility] with a PMHx of CAD s/p Stents, HTN, CVA ( residual deficits), DM, Breast Ca, Anemia, Anxiety, Ascites (Alcohol Cirrhosis) . Who presents to the ED for evaluation of productive cough- brown phlegm, chest congestion and hypoxia 88% at [place]. Patient reports having a thick brown cough x 7 days, via registered dietician (healthcare worker at bedside). Patient denies fever, chills, MEI, dizziness, CP, palpitations. Patient denies AP, N/V/D, constipation, dysuria Constitutional: Yes: Well Nourished, No Distress, Calm Cardiovascular: Yes: Regular Rate and Rhythm Respiratory: Yes: Regular Gastrointestinal: Yes: Normal Bowel Sounds, Soft Musculoskeletal: Yes: Muscle Weakness Extremities: Yes: WNL Edema: No Peripheral Pulses WNL: Yes Neurological: Yes: Alert, Oriented Psychiatric: Yes: Alert, Oriented Discharge Summary Reason For Visit: PNEUMONIA Current Active Problems Acute hypoxemic respiratory failure (Acute) Healthcare associated bacterial pneumonia (Acute) Pneumonia (Acute) Condition: Stable - Instructions Diet, Activity, Other Instructions: -Ceftazidime 1 gm Q8H for 10 days via PICC line -Prednisone tapering dose 40 mg po BID for 2 days, then 30 mg po bid x 2 days, then 20 mg po bid x 2 days, then 10 mg po bid x 2 days, then 10 mg po daily x 2 days, then stop Referrals: Jose Harman MD [Primary Care Provider] - [facility]position: [facility] - Home Medications Comprehensive Discharge Medication List: Ambulatory Orders Aspirin [ASA -] 81 mg PO DAILY 10/09/14 Nadolol [Corgard -] 20 mg PO DAILY tablet 09/05/17 Escitalopram Oxalate [Lexapro -] 10 mg PO DAILY 01/24/18 Fludrocortisone Acetate [Florinef -] 0.1 mg PO DAILY 01/24/18 Fluticasone Furoate [Arnuity Ellipta] 100 mcg IH DAILY 01/24/18 Pantoprazole Sodium [Protonix] 40 mg PO DAILY 01/24/18 Atorvastatin Calcium [Lipitor] 10 mg PO HS 05/07/18 Insulin (Levemir) [Levemir Vial] 25 units SQ HS 05/07/18 Nortriptyline HCl [Pamelor -] 25 mg PO DAILY 05/07/18 Acetaminophen [Tylenol .Regular Strength -] 650 mg PO Q6H PRN tablet 05/13/18 Budesonide [Pulmicort 0.5 mg Nebulizer -] 1 amp NEB RBID amp 05/13/18 Carbidopa/Levodopa 25/100 [Sinemet 25/100 -] 1 each PO TID tablet 05/13/18 Furosemide [Lasix] 40 mg PO BID #60 tablet 05/13/18 Gabapentin [Neurontin -] 100 mg PO TID capsule 05/13/18 Heparin - 5,000 unit SQ BID vial 05/13/18 Insulin Sliding Scale [Novolog Vial Sliding Scale -] 1 vial SQ ACHS units 05/13 Losartan Potassium [Cozaar -] 25 mg PO DAILY tablet 05/13/18 Potassium Chloride [Potassium Chloride Oral Liquid] 40 meq PO DAILY cup Ipratropium/Albuterol Sulfate [Iprat-Albut 0.5-3(2.5) mg/3 ml] 3 ml IH Q6H 06/28 Nystatin Cream [Mycostatin] 1 applic TP BID 06/28/18 Zinc Oxide 20% Topical Oint 454 gm NR ASDIR 06/28/18 Albuterol 0.083% Nebulizer Elizabeth [Ventolin 0.083% Nebulizer Soln -] 1 amp NEB Q4H PRN amp 07/07/18 Ceftazidime Pentahydrate [Fortaz (Restricted To Id) -] 1 gm IVPB Q8H-IV #30 vial 07/07/18 Guaifenesin/D-Methorphan Hb [Diabetic Tussin Dm -] 10 ml PO Q4H PRN ml Insulin (Levemir) [Levemir Vial] 35 units SQ HS units 07/07/18 Insulin Sliding Scale [Novolog Vial Sliding Scale -] 1 vial SQ ACHS units 07/07 Multivitamins [Multivit ([facility] Formul[facility])] 1 tab PO DAILY tab 07/07/18 Nystatin Cream [Mycostatin Cream -] 1 applic TP BID applic 07/07/18 Potassium Chloride [K-Dur -] 40 meq PO DAILY tablet.er 07/07/18 Prednisone 10 mg PO ASDIR #32 tablet 07/07/18
[2018-07-07 12:33] LABS: ALBUMIN 2.2 g/dl (3.4-5.0); ALK PHOS 157 U/L (45-117); ANION GAP 5 MMOL/L (8-16); BILIRUBIN,TOTAL 2.1 mg/dL (0.2-1); BLOOD UREA NITROGEN 27 mg/dL (7-18); CHLORIDE 98 mmol/L (98-107); CO2 37 mmol/L (21-32); CREATININE 0.9 mg/dL (0.55-1.3); GLUCOSE,RANDOM 185 mg/dL (74-106); POTASSIUM 3.9 mmol/L (3.5-5.1); SGOT/AST 75 U/L (15-37); SGPT/ALT 25 U/L (13-61); SODIUM 139 mmol/L (136-145); TOT PROT 6.6 g/dl (6.4-8.2)
[2018-07-07 14:12] LABS: ANISOCYTOSIS 1+; MACROCYTOSIS 1+; PLATELET ESTIMATE DECREASED
[2018-07-07 15:52] VITALS: BP 128/74; PULSE 76; TEMP 97.9
== END 2018-07-07 18:09 | DRG 177 ==
LOC: JER 17:21 → J5S 20:06 → JER 21:54 → J5S 21:54
PROVIDERS: ADMIT Family Medicine; ATTEND Family Medicine
DX: J15.1 Pneumonia due to Pseudomonas (principal); J96.01 Acute respiratory failure with hypoxia; J44.1 Chronic obstructive pulmonary disease with (acute) exacerbation; J84.9 Interstitial pulmonary disease, unspecified; I69.354 Hemiplegia and hemiparesis following cerebral infarction affecting left non-dominant side; I85.00 Esophageal varices without bleeding; K70.31 Alcoholic cirrhosis of liver with ascites; E11.65 Type 2 diabetes mellitus with hyperglycemia; I10 Essential (primary) hypertension; E87.8 Other disorders of electrolyte and fluid balance, not elsewhere classified; E78.5 Hyperlipidemia, unspecified; I25.9 Chronic ischemic heart disease, unspecified; E87.6 Hypokalemia; C50.912 Malignant neoplasm of unspecified site of left female breast; I25.10 Atherosclerotic heart disease of native coronary artery without angina pectoris; Z79.4 Long term (current) use of insulin; Z95.5 Presence of coronary angioplasty implant and graft; Z87.891 Personal history of nicotine dependence; D64.9 Anemia, unspecified; Z88.0 Allergy status to penicillin; F41.9 Anxiety disorder, unspecified; R91.8 Other nonspecific abnormal finding of lung field; R04.0 Epistaxis
CPT/HCPCS: 36415; 36569; 70450-TC; 71045-TC-FY; 71250-TC; 77001-TC-FY; 80048; 80053; 81003; 82550; 82962; 83036; 83605; 84484; 85025; 85027; 85610; 85730; 87040; 87070; 87086; 87186; 87205; 87804; 87899; 93005; 93010; 94640; 97116-GP; 97161-GP; 99284-25; C1751; J1644

== ENCOUNTER 2018-07-08 12:00 | Inpatient (IN) | payer OTHER ==
[2018-07-08 12:14] VITALS: BMI 24.2
--- NOTE | 2018-07-08 12:20 | PDOC ---
History of Present Illness - General Chief Complaint: Chest Pain Stated Complaint: CHEST PAIN Time Seen by Provider: 07/08/18 12:19 - History of Present Illness Initial Comments: 07/08/18 13:08 77 y/o woman from [facility] with a PMHx of CAD s/p Stents, HTN, CVA (residual deficits), DM, Breast Ca, Anemia, Anxiety, Ascites (Alcohol Cirrhosis) sent from [facility] after patient was complaining of chest pain this morning and found to be hypoxic at 99% on room air. She was just discharged yesterday from our hospital for pseudomonas Sputum + pneumonia treated with Ceftazidime. She had originally presented with productive cough- brown phlegm, chest congestion and hypoxia for 7 days before admission. Patient denies fever, chills, MEI, dizziness, palpitations. Patient denies AP, N/ V/D, constipation, dysuria Past History - Past Medical History Allergies/Adverse Reactions: Allergies Allergy/AdvReac Type Severity Reaction Status Date / Time levofloxacin [From Levaquin] Allergy Intermediate Rash Verified 07/08/18 12:11 Penicillins Allergy Rash Verified 07/08/18 12:11 sulfamethoxazole AdvReac Intermediate Verified 07/08/18 12:11 [From Bactrim] trimethoprim [From Bactrim] AdvReac Intermediate Verified 07/08/18 12:11 Home Medications: Ambulatory Orders Aspirin [ASA -] 81 mg PO DAILY 10/09/14 Nadolol [Corgard -] 20 mg PO DAILY tablet 09/05/17 Escitalopram Oxalate [Lexapro -] 10 mg PO DAILY 01/24/18 Fludrocortisone Acetate [Florinef -] 0.1 mg PO DAILY 01/24/18 Fluticasone Furoate [Arnuity Ellipta] 100 mcg IH DAILY 01/24/18 Pantoprazole Sodium [Protonix] 40 mg PO DAILY 01/24/18 Atorvastatin Calcium [Lipitor] 10 mg PO HS 05/07/18 Nortriptyline HCl [Pamelor -] 25 mg PO DAILY 05/07/18 Acetaminophen [Tylenol .Regular Strength -] 650 mg PO Q6H PRN tablet 05/13/18 Budesonide [Pulmicort 0.5 mg Nebulizer -] 1 amp NEB RBID amp 05/13/18 Carbidopa/Levodopa 25/100 [Sinemet 25/100 -] 1 each PO TID tablet 05/13/18 Furosemide [Lasix] 40 mg PO BID #60 tablet 05/13/18 Gabapentin [Neurontin -] 100 mg PO TID capsule 05/13/18 Heparin - 5,000 unit SQ BID vial 05/13/18 Losartan Potassium [Cozaar -] 25 mg PO DAILY tablet 05/13/18 Ipratropium/Albuterol Sulfate [Iprat-Albut 0.5-3(2.5) mg/3 ml] 3 ml IH Q6H 06/28 Zinc Oxide 20% Topical Oint 454 gm NR ASDIR 06/28/18 Ceftazidime Pentahydrate [Fortaz (Restricted To Id) -] 1 gm IVPB Q8H-IV #30 vial 07/07/18 Guaifenesin/D-Methorphan Hb [Diabetic Tussin Dm -] 10 ml PO Q4H PRN ml Insulin (Levemir) [Levemir Vial] 35 units SQ HS units 07/07/18 Nystatin Cream [Mycostatin Cream -] 1 applic TP BID applic 07/07/18 Potassium Chloride [K-Dur -] 40 meq PO DAILY tablet.er 07/07/18 Prednisone 10 mg PO ASDIR #32 tablet 07/07/18 Insulin Lispro [Humalog] 0 unit SQ ASDIR 07/08/18 Anemia: Yes Asthma: Yes Cancer: Yes (breast : Left lumpectomy) Cardiac Disorders: Yes (CAD with stents) CVA: Yes COPD: Yes CHF: No Dementia: Yes Diabetes: Yes GI Disorders: Yes (HX. ULCERS,ESOPHAGEAL VARICES) Disorders: No HTN: Yes Hypercholesterolemia: Yes Liver Disease: Yes (ALCOHOL CIRRHOSIS??-ASCITES) Psychiatric Problems: Yes (ANXIETY.) Seizures: No Thyroid Disease: No - Surgical History Abdominal Surgery: No Appendectomy: No Cardiac Surgery: Yes (STENT X 1 in [place]AD 1978) Cholecystectomy: No Neurologic Surgery: No Orthopedic Surgery: No - Immunization History Immunization Up to Date: Yes - Suicide/Smoking/Psychosocial Hx Smoking Status: Yes Smoking History: Unknown if ever smoked Years of Tobacco Use: 5 Have you smoked in the past 12 months: No Number of Cigarettes Smoked Daily: 0 If you are a former smoker, when did you quit?: over 30 years ago Information on smoking cessation initiated: No Hx Alcohol Use: No Drug/Substance Use Hx: No Substance Use Type: None Hx Substance Use Treatment: No Cardiac Specific PMH - Complaint Specific PMHX Pacemaker: No Review of Systems - Review of Systems Constitutional: No: Symptoms Reported HEENTM: No: Symptoms Reported Respiratory: Yes: Shortness of Breath Cardiac (ROS): Yes: Chest Pain ABD/GI: No: Symptoms Reported : No: Symptoms Reported All Other Systems: Reviewed and Negative *Physical Exam - Vital Signs Last Vital Signs Temp Pulse Resp BP Pulse Ox 97.4 F L 77 22 H 121/70 96 07/08/18 12:33 07/08/18 14:16 07/08/18 14:16 07/08/18 14:16 07/08/18 14:16 - Physical Exam General Appearance: Yes: Nourished, Appropriately Dressed, Mild Distress HEENT: positive: EOMI, QUYEN, Normal ENT Inspection Respiratory/Chest: positive: Rapid RR, Crackles (diffuse), Rales (diffuse). negative: Chest Tender, Normal Breath Sounds Cardiovascular: positive: Regular Rhythm, Regular Rate, S1, S2 Gastrointestinal/Abdominal: positive: Tenderness, Other (Hematoma over lower left and right quadrant. Tender over lower left quadrant. ) Moderate Sedation - Procedure Monitoring Vital Signs: Procedure Monitoring Vital Signs Temperature 97.4 F L 07/08/18 12:33 Pulse Rate 77 07/08/18 14:16 Respiratory Rate 22 H 07/08/18 14:16 Blood Pressure 121/70 07/08/18 14:16 O2 Sat by Pulse Oximetry (%) 96 07/08/18 14:16 ED Treatment Course - LABORATORY CBC & Chemistry Diagram: 07/08/18 13:20 07/08/18 13:20 - ADDITIONAL ORDERS Additional order review: Laboratory Results 07/08/18 07/08/18 13:20 13:20 Sodium 141 Potassium 3.6 Chloride 98 Carbon Dioxide 38 H Anion Gap 6 L BUN 27 H Creatinine 0.8 Creat Clearance w eGFR > 60 Random Glucose 182 H Lactic Acid 2.4 H* Calcium 8.8 Phosphorus 2.8 Magnesium 2.4 Total Bilirubin 2.0 H AST 55 H ALT 22 Alkaline Phosphatase 155 H Troponin I 0.04 Total Protein 6.1 L Albumin 2.0 L 07/08/18 13:20 RBC 3.70 MCV 95.0 MCHC 34.7 RDW 15.2 MPV 8.6 Neutrophils % 90.3 H Lymphocytes % 5.6 L D Monocytes % 3.3 L Eosinophils % 0.6 D Basophils % 0.2 - RADIOLOGY Radiology Studies Ordered: Category Date Time Status CHEST X-RAY PORTABLE* [RAD] Stat Radiology 07/08/18 12:47 Completed Medical Decision Making - Medical Decision Making 07/08/18 14:25 Worsening pneumonia vs ME vs Aortic dissection Single AP view of the chest reveals some progressive alveolar changes superimposed on chronic interstitial and vague nodular findings. There is a large heart, lordotic aortic knob and right subclavian line with tip in SVC. There is no sign of a pneumothorax. The bones and soft tissues are intact. Correlation and follow-up recommended. 07/08/18 14:31 WBC still increasing from last visit. May need to change abx 07/08/18 14:[address] Gonzales, ID, asked to start patient on meropenem for one dose. Admitted to floor under Dr. Valente, with consult from Dr. Rodriges. 07/08/18 15:22 LActed elevated at 2.4 *DC/Admit/Observation/Transfer Diagnosis at time of Disposition: Pneumonia - Discharge Dispostion Decision to Admit order: Yes - Referrals - Patient Instructions - Post Discharge Activity
--- NOTE | 2018-07-08 12:46 | PDOC ---
Attending Attestation - Resident Resident Name: Gustabo Copeland - [facility] HPI: 07/08/18 14:07 The patient is a 77-year-old female with a past medical history significant for CAD (with stents), DM, HTN, anemia, CVA (L-sided residual), and breast CA presents to the emergency department from [facility] via ambulance with flushed skin. Per [place], around 11:18 am the patient complained for chest pain and the nurse reported the patient's face looked red and flushed. The patient was noted to be desaturated to 88% and was placed on non-rebreather. The patient was discharged from the hospital yesterday, was admitted to the ICU. The patient sputum was positive for Pseudomonas and was receiving treatment for pneumonia. The patient was discharged to [facility] with a prescription for Ceftazidime. The patient received her first dose of abx at 6: 00 am today. Allergies: levofloxacin, Penicillins, sulfamethoxazole, trimethoprim. Social history Former smoker. Surgical history: Stents. PCP: From [facility]. - Physicial Exam PE: 07/08/18 14:08 CONSTITUTIONAL: The patient is thin, appears flushed, fragile and weak. Appears dehydrated. HEAD: Normocephalic; atraumatic EYES: PERRL; EOM intact ENMT: +dry mucous membranes. External appears normal; normal oropharynx NECK: Supple; non-tender; no cervical lymphadenopathy CARD: Normal S1, S2; no murmurs, rubs, or gallops RESP: +crackles at the base. No wheezing, rhonchi or rales. Normal chest excursion with respiration; breath sounds clear and equal bilaterally. ABD: Soft, non-distended; non-tender; no palpable organomegaly, no palpable hernias EXT: Normal ROM in all four extremities; non-tender to palpation; distal pulses intact SKIN: +Warm, dry, no rash NEURO: No focal neurological deficiencies. - Medical Decision Making 07/08/18 14:08 Documentation prepared by Maria Antonia Lorenzo, acting as medical assistant instructor for Munira Xavier MD. <Maria Antonia Lorenzo - Last Filed: 07/08/18 14:07> - Medical Decision Making 07/08/18 16:37 77 y/o female seen and examined by myself at the bedside, with her family in attendance. PT was discharged from hospital yesterday after being treated for pneumonia. Pt brought back in today because she c/o chest pain and was hypoxic at the long-term, and is flushed. Pt's wbc is higher today, lactic acid is elevated, and xray has worsened. Will readmit to hospital for respiratory distress secondary to pneumonia,and having failed out pt antibiotics <Munira Xavier - Last Filed: 07/08/18 16:43>
[2018-07-08 13:51] LABS: BASO % 0.2 % (0-2.0); EOS % 0.6 % (0-4.5); HEMATOCRIT 35.2 % (32.4-45.2); HEMOGLOBIN 12.2 GM/dL (10.7-15.3); LYMPH % 5.6 % (8-40); MCH 32.9 pg (25.7-33.7); MCHC 34.7 g/dl (32.0-36.0); MEAN PLT VOLUME 8.6 fl (7.5-11.1); MONO % 3.3 % (3.8-10.2); NEUT % 90.3 % (42.8-82.8); PLATELET COUNT 123 K/MM3 (134-434); RDW 15.2 % (11.6-15.6); WHITE BLOOD COUNT 23.7 K/mm3 (4.0-10.0)
[2018-07-08] MEDS ORDERED: MEROPENEM 1 GM in DEXTROSE 5%-WATER 100 ML IVPB ONE (14:37)
[2018-07-08] MEDS ORDERED: FUROSEMIDE 40 MG/4 ML INJECTABLE VIAL IVPUSH ONE (14:39)
[2018-07-08] MEDS ORDERED: FUROSEMIDE 40 MG/4 ML INJECTABLE VIAL ONE (15:05)
[2018-07-08 15:07] LABS: ALK PHOS 155 U/L (45-117); ANION GAP 6 MMOL/L (8-16); BLOOD UREA NITROGEN 27 mg/dL (7-18); CALCIUM 8.8 mg/dL (8.5-10.1); CHLORIDE 98 mmol/L (98-107); CO2 38 mmol/L (21-32); CREATININE 0.8 mg/dL (0.55-1.3); GLUCOSE,RANDOM 182 mg/dL (74-106); MAGNESIUM 2.4 mg/dL (1.8-2.4); PHOSPHOROUS 2.8 mg/dL (2.5-4.9); POTASSIUM 3.6 mmol/L (3.5-5.1); SGOT/AST 55 U/L (15-37); SGPT/ALT 22 U/L (13-61); SODIUM 141 mmol/L (136-145); TOT PROT 6.1 g/dl (6.4-8.2)
[2018-07-08 15:35] LABS: N-TERMINAL BNP 533.5 pg/ml (5-450)
[2018-07-08] MEDS ORDERED: ALBUTEROL SO4 2.5/IPRATROPIUM 0.5 INH SOL 3 ML VIAL.NEB. NEB PRN (15:41)
[2018-07-08 15:59] LABS: ANISOCYTOSIS 2+; MACROCYTOSIS 0; PLATELET ESTIMATE DECREASED; TEAR DROP CELLS 1+; TOXIC GRANULATION 2+
[2018-07-08] MEDS: INSULIN SLIDING SCALE (NOVOLOG) 1 VIAL SQ SCH ×2 (16:40→21:57)
[2018-07-08] MEDS ORDERED: VANCOMYCIN 1,000 MG in DEXTROSE 5%-WATER - 250 ML IVPB ONE (17:14)
--- NOTE | 2018-07-08 17:22 | CON.ID ---
Consult - History of Present Illness History of Present Illness: 77 y.o. female with PMH of CVA, CAD s/p stents, DM, Breast CA, alcoholic cirrhosis, esophageal varices, GI bleed, PUD, and HTN presents to the ER with c/ o shortness of breath and chest pain. She was recently treated in the hospital for Pseudomonas PNA and discharged yesterday on Ceftazidime to continue for 7 more days. She was noted to have hypoxia ( 88% O2 sat), elevated lactate and leukocytosis ( wbc 23.7K) with progressive changes on CXR. Pt remains afebrile, currently alert but complaining of generalized pain and Rt sided chest pain. No other specific complaints at this time. 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 poor prep in past.), Stent (cardiac), Tonsillectomy, Upper Endoscopy (h/o esoph varices. on nadalol. s/p banding. due to surveillance egd in 04/10/15) - Alcohol/Substance Use Hx Alcohol Use: No History of Substance Use: reports: None - Smoking History Smoking history: Unknown if ever smoked Have you smoked in the past 12 months: No Aproximately how many cigarettes per day: 0 If you are a former smoker, when did you quit?: over 30 years ago - Social History Usual Living Arrangement: Alone ADL: Support Services History of Recent Travel: Yes Home Medications - Allergies Allergies/Adverse Reactions: Allergies Allergy/AdvReac Type Severity Reaction Status Date / Time levofloxacin [From Levaquin] Allergy Intermediate Rash Verified 07/08/18 12:11 Penicillins Allergy Rash Verified 07/08/18 12:11 sulfamethoxazole AdvReac Intermediate Verified 07/08/18 12:11 [From Bactrim] trimethoprim [From Bactrim] AdvReac Intermediate Verified 07/08/18 12:11 - Home Medications Home Medications: Ambulatory Orders Aspirin [ASA -] 81 mg PO DAILY 10/09/14 Nadolol [Corgard -] 20 mg PO DAILY tablet 09/05/17 Escitalopram Oxalate [Lexapro -] 10 mg PO DAILY 01/24/18 Fludrocortisone Acetate [Florinef -] 0.1 mg PO DAILY 01/24/18 Fluticasone Furoate [Arnuity Ellipta] 100 mcg IH DAILY 01/24/18 Pantoprazole Sodium [Protonix] 40 mg PO DAILY 01/24/18 Atorvastatin Calcium [Lipitor] 10 mg PO HS 05/07/18 Nortriptyline HCl [Pamelor -] 25 mg PO DAILY 05/07/18 Acetaminophen [Tylenol .Regular Strength -] 650 mg PO Q6H PRN tablet 05/13/18 Budesonide [Pulmicort 0.5 mg Nebulizer -] 1 amp NEB RBID amp 05/13/18 Carbidopa/Levodopa 25/100 [Sinemet 25/100 -] 1 each PO TID tablet 05/13/18 Furosemide [Lasix] 40 mg PO BID #60 tablet 05/13/18 Gabapentin [Neurontin -] 100 mg PO TID capsule 05/13/18 Heparin - 5,000 unit SQ BID vial 05/13/18 Losartan Potassium [Cozaar -] 25 mg PO DAILY tablet 05/13/18 Ipratropium/Albuterol Sulfate [Iprat-Albut 0.5-3(2.5) mg/3 ml] 3 ml IH Q6H 06/28 Zinc Oxide 20% Topical Oint 454 gm NR ASDIR 06/28/18 Ceftazidime Pentahydrate [Fortaz (Restricted To Id) -] 1 gm IVPB Q8H-IV #30 vial 07/07/18 Guaifenesin/D-Methorphan Hb [Diabetic Tussin Dm -] 10 ml PO Q4H PRN ml Insulin (Levemir) [Levemir Vial] 35 units SQ HS units 07/07/18 Nystatin Cream [Mycostatin Cream -] 1 applic TP BID applic 07/07/18 Potassium Chloride [K-Dur -] 40 meq PO DAILY tablet.er 07/07/18 Prednisone 10 mg PO ASDIR #32 tablet 07/07/18 Insulin Lispro [Humalog] 0 unit SQ ASDIR 07/08/18 Family Disease History - Family Disease History Family Disease History: Diabetes: Brother (4 brothers), Other: Father ( 80's: unclear cancer), Mother ( 90's, unclear cause), Brother, Sister ( 7 sisters), Son (3, 1 : does not recall cause), Daughter (3) Review of Systems - Review of Systems Constitutional: reports: No Symptoms, Weakness Eyes: reports: No Symptoms. denies: Blind Spots, Blurred Vision, Double Vision , Eye Pain, Floaters, Photophobia, Recent Change in Vision, Other HENT: reports: No Symptoms. denies: Difficult Swallowing, Ear Discharge, Ear Pain, Epistaxis, Gingival Bleeding, Hearing Loss, Mouth Swelling, Nasal Congestion, Ocular Prosthesis, Throat Pain, Toothache, Ringing in Ears, Other Neck: reports: No Symptoms. denies: Decreased ROM, Lumps, Pain on Movement, Stiffness, Swollen Glands, Tenderness, Other Cardiovascular: reports: Chest Pain (Rt sided) Respiratory: reports: SOB Gastrointestinal: reports: No Symptoms Genitourinary: reports: No Symptoms Integumentary: reports: No Symptoms Neurological: reports: No Symptoms Endocrine: reports: Flushing Hematology/Lymphatic: reports: No Symptoms Physical Exam Vital Signs: Vital Signs Temperature 98 F 07/08/18 15:49 Pulse Rate 79 07/08/18 15:49 Respiratory Rate 22 H 07/08/18 15:49 Blood Pressure 123/79 07/08/18 15:49 O2 Sat by Pulse Oximetry (%) 96 07/08/18 15:49 Constitutional: Yes: Other (weak, no acute distress) Eyes: Yes: Conjunctiva Clear Cardiovascular: Yes: Regular Rate and Rhythm Respiratory: Yes: Other (diffuse crackles) Gastrointestinal: Yes: Normal Bowel Sounds, Soft Renal/: Yes: WNL Musculoskeletal: Yes: WNL Extremities: Yes: WNL Edema: No Integumentary: Yes: WNL Neurological: Yes: Alert Labs: CBC, BMP 07/08/18 13:20 03/02/19 13:20 Lactic Acid: 2.4 Imaging - Results X-ray: Report Reviewed Problem List - Problems (1) Pneumonia Code(s): J18.9 - PNEUMONIA, UNSPECIFIED ORGANISM (2) Acute hypoxemic respiratory failure Code(s): J96.01 - ACUTE RESPIRATORY FAILURE WITH HYPOXIA (3) Anxiety Code(s): F41.9 - ANXIETY DISORDER, UNSPECIFIED (4) Breast cancer Code(s): C50.919 - MALIGNANT NEOPLASM OF UNSP SITE OF UNSPECIFIED FEMALE BREAST (5) CVA (cerebral infarction) Code(s): I63.9 - CEREBRAL INFARCTION, UNSPECIFIED Qualifiers: Cerebral infarction mechanism: unspecified mechanism Qualified Code(s): I63.9 - Cerebral infarction, unspecified (6) Cirrhosis of liver Code(s): K74.60 - UNSPECIFIED CIRRHOSIS OF LIVER Qualifiers: Hepatic cirrhosis type: alcoholic cirrhosis Ascites presence: with ascites Qualified Code(s): K70.31 - Alcoholic cirrhosis of liver with ascites (7) Coronary artery disease Code(s): I25.10 - ATHSCL HEART DISEASE OF [place] CORONARY ARTERY W/O ANG PCTRS Qualifiers: Coronary Disease-Associated Artery/Lesion type: [place] artery [place] vs. transplanted heart: [place] heart Associated angina: without angina Qualified Code(s): I25.10 - Atherosclerotic heart disease of [place] coronary artery without angina pectoris (8) Diabetes Code(s): E11.9 - TYPE 2 DIABETES MELLITUS WITHOUT COMPLICATIONS Qualifiers: Diabetes mellitus type: type 2 (9) Esophageal varices without bleeding Code(s): I85.00 - ESOPHAGEAL VARICES WITHOUT BLEEDING (10) Hx of antibiotic allergy Code(s): Z88.1 - ALLERGY STATUS TO OTHER ANTIBIOTIC AGENTS STATUS (11) Hyperlipidemia Code(s): E78.5 - HYPERLIPIDEMIA, UNSPECIFIED Qualifiers: Hyperlipidemia type: pure hypercholesterolemia Qualified Code(s): E78.00 - Pure hypercholesterolemia, unspecified; E78.0 - Pure hypercholesterolemia (12) Hypertension Code(s): I10 - ESSENTIAL (PRIMARY) HYPERTENSION (13) Lactic acidosis Code(s): E87.2 - ACIDOSIS (14) Pneumonia Code(s): J18.9 - PNEUMONIA, UNSPECIFIED ORGANISM Qualifiers: (15) S/P coronary artery stent placement Code(s): Z95.5 - PRESENCE OF CORONARY ANGIOPLASTY IMPLANT AND GRAFT (16) Shortness of breath Code(s): R06.02 - SHORTNESS OF BREATH Assessment/Plan 77 y.o. female with PMH of CVA, CAD s/p stents, DM, HTN, Alcoholic cirrhosis, esophageal varices/GI bleed, PUD discharged to [place] on Ceftazidime to continue treatment for Pseudomonas PNA one day prior presents with c/o SOB/Rt side chest pain, hypoxia, leukocytosis, and elevated lactic acid level. CXR reveals progressive changes over chronic interstitial markings. PNA Acute hypoxemic resp failure Leukocytosis Lactic acidosis ?Pulmonary MAC CAD DM Hx of Breast CA Liver cirrhosis Hx of CVA - will start Meropenem IV Q8H ( RN instructed to monitor for signs of allergic reaction), Vancomycin x 1 dose for now -- Blood cultures, sputum culture, u/a, urine culture, urinary Ags, repeat lactic acid -- repeat cbc tomorrow, monitor wbc trend -- continue monitor vitals closely Will Follow Thank you
[2018-07-08] MEDS ORDERED: VANCOMYCIN 1 GM in D5W (PRE-DOCKED) 1,000 MG/250 ML IVPB ONE (17:30)
[2018-07-08] MEDS: NYSTATIN 500,000 UNITS/5 ML SUSPENSION PO SCH (17:39)
[2018-07-08] MEDS: ACETAMINOPHEN 325 MG TABLET (FP) PO PRN (18:07)
[2018-07-08 21:48] LABS: URINE APPEARANCE CLEAR; URINE BILIRUBIN NEGATIVE (<2.0 mg/dL); URINE COLOR YELLOW; URINE GLUCOSE (UA) NEGATIVE (NEGATIVE); URINE KETONE NEGATIVE (NEGATIVE); URINE LEUK ESTERASE NEGATIVE (NEGATIVE); URINE NITRITE NEGATIVE (NEGATIVE); URINE PROTEIN NEGATIVE (NEGATIVE)
[2018-07-08] MEDS: CARBIDOPA/LEVODOPA 25/100 TABLET (FP) PO SCH (21:57)
[2018-07-08] MEDS: HEPARIN NA (PORCINE) 5,000 UNITS/ML 1ML VIAL SQ SCH (21:57)
[2018-07-08] MEDS: GABAPENTIN 100 MG CAPSULE (FP) PO SCH (21:57)
[2018-07-08] MEDS: ATORVASTATIN CA 20 MG TABLET (FP) PO SCH (21:57)
[2018-07-08] MEDS: INSULIN (LEVEMIR) 100 UNITS/ML UNITS SQ SCH (21:58)
[2018-07-08] MEDS: NORTRIPTYLINE HCL 25 MG CAPSULE PO SCH (21:59)
[2018-07-08] MEDS: ZINC OXIDE 20% TOPICAL OINTMENT 30 GM TUBE TP SCH (21:59)
[2018-07-08] MEDS: NYSTATIN 100,000 UNIT/GM TOPICAL CREAM 15 GM TUBE TP SCH (22:00)
[2018-07-08] MEDS ORDERED: PT OWN MED DRAWER 7, Y5N ONE (22:17)
[2018-07-08] MEDS: MEROPENEM 1 GM in DEXTROSE 5%-WATER 100 ML IVPB SCH (22:18)
[2018-07-09] MEDS ORDERED: SODIUM CHLORIDE 250 ML IV STA (00:31)
[2018-07-09] MEDS: MELATONIN 5 MG TABLETS PO PRN ×2 (00:45→21:39)
[2018-07-09] MEDS: NYSTATIN 500,000 UNITS/5 ML SUSPENSION PO SCH ×4 (00:45→17:10)
[2018-07-09] MEDS: MEROPENEM 1 GM in DEXTROSE 5%-WATER 100 ML IVPB SCH ×3 (02:12→17:10)
[2018-07-09] MEDS: CARBIDOPA/LEVODOPA 25/100 TABLET (FP) PO SCH ×3 (05:34→21:39)
[2018-07-09] MEDS: GABAPENTIN 100 MG CAPSULE (FP) PO SCH ×3 (05:34→21:39)
[2018-07-09] MEDS: INSULIN SLIDING SCALE (NOVOLOG) 1 VIAL SQ SCH ×4 (06:14→21:40)
[2018-07-09 07:49] LABS: HEMATOCRIT 32.9 % (32.4-45.2); HEMOGLOBIN 11.3 GM/dL (10.7-15.3); MCH 32.6 pg (25.7-33.7); MCHC 34.4 g/dl (32.0-36.0); MEAN CELL VOLUME 94.7 fl (80-96); MEAN PLT VOLUME 8.6 fl (7.5-11.1); PLATELET COUNT 104 K/MM3 (134-434); RBC 3.47 M/mm3 (3.60-5.2); RDW 15.5 % (11.6-15.6)
[2018-07-09 07:51] LABS: ALBUMIN 1.9 g/dl (3.4-5.0); ALK PHOS 143 U/L (45-117); ANION GAP 4 MMOL/L (8-16); BILIRUBIN,TOTAL 1.7 mg/dL (0.2-1); BLOOD UREA NITROGEN 22 mg/dL (7-18); CALCIUM 8.3 mg/dL (8.5-10.1); CHLORIDE 100 mmol/L (98-107); CO2 37 mmol/L (21-32); CREATININE 0.7 mg/dL (0.55-1.3); GLUCOSE,RANDOM 85 mg/dL (74-106); POTASSIUM 3.6 mmol/L (3.5-5.1); SGOT/AST 41 U/L (15-37); SGPT/ALT 13 U/L (13-61); SODIUM 142 mmol/L (136-145); TOT PROT 5.8 g/dl (6.4-8.2)
[2018-07-09] MEDS ORDERED: PT OWN MED DRAWER 7, Y5N ONE (09:42)
[2018-07-09] MEDS: FUROSEMIDE 40 MG TABLET (FP) PO SCH (09:49)
[2018-07-09] MEDS: ASPIRIN COATED 81 MG TABLET.EC PO SCH (09:49)
[2018-07-09] MEDS: predniSONE 20 MG TABLET (UD) PO SCH (09:49)
[2018-07-09] MEDS: HEPARIN NA (PORCINE) 5,000 UNITS/ML 1ML VIAL SQ SCH ×2 (09:49→21:39)
[2018-07-09] MEDS: PANTOPRAZOLE 40 MG TABLET (FP) PO SCH (09:49)
[2018-07-09] MEDS: ESCITALOPRAM OXALATE 10 MG TABLET (FP) PO SCH (09:50)
[2018-07-09] MEDS: LOSARTAN POTASSIUM 50 MG TABLET (FP) PO SCH (09:50)
[2018-07-09] MEDS: NYSTATIN 100,000 UNIT/GM TOPICAL CREAM 15 GM TUBE TP SCH ×2 (09:55→21:41)
[2018-07-09] MEDS: ZINC OXIDE 20% TOPICAL OINTMENT 30 GM TUBE TP SCH ×2 (09:55→21:42)
--- NOTE | 2018-07-09 10:05 | PN ---
Progress Note, Physician - Current Medication List Current Medications: Active Medications Acetaminophen (Tylenol -) 650 mg PO Q6H PRN PRN Reason: FEVER Last Admin: 07/08/18 18:07 Dose: 650 mg Albuterol/Ipratropium (Duoneb -) 1 amp NEB Q6H PRN PRN Reason: SHORTNESS OF BREATH Aspirin (Ecotrin -) 81 mg PO DAILY [facility] Last Admin: 07/09/18 09:49 Dose: 81 mg Atorvastatin Calcium (Lipitor -) 20 mg PO HS [facility] Last Admin: 07/08/18 21:57 Dose: 20 mg Carbidopa/Levodopa (Sinemet 25/100 -) 1 each PO TID [facility] Last Admin: 07/09/18 05:34 Dose: 1 each Escitalopram Oxalate (Lexapro -) 10 mg PO DAILY [facility] Last Admin: 07/09/18 09:50 Dose: 10 mg Fludrocortisone Acetate (Florinef -) 0.1 mg PO DAILY [facility] Furosemide (Lasix -) 40 mg PO DAILY [facility] Last Admin: 07/09/18 09:49 Dose: 40 mg Gabapentin (Neurontin -) 100 mg PO TID [facility] Last Admin: 07/09/18 05:34 Dose: 100 mg Heparin Sodium (Porcine) (Heparin -) 5,000 unit SQ BID [facility] Last Admin: 07/09/18 09:49 Dose: 5,000 unit Meropenem 1 gm/ Dextrose 100 mls @ 200 mls/hr IVPB Q8H-IV [facility] Last Admin: 07/09/18 09:50 Dose: 200 mls/hr Insulin Aspart (Novolog Vial Sliding Scale -) 1 vial SQ [facility]; Protocol Last Admin: 07/09/18 06:14 Dose: Not Given Insulin Detemir (Levemir Vial) 35 units SQ HS [facility] Last Admin: 07/08/18 21:58 Dose: 35 units Losartan Potassium (Cozaar -) 100 mg PO DAILY [facility] Last Admin: 07/09/18 09:50 Dose: 100 mg Melatonin (Melatonin) 5 mg PO HS PRN PRN Reason: INSOMNIA Last Admin: 07/09/18 00:45 Dose: 5 mg Multi-Ingredient Ointment (Zinc Oxide) 1 applic TP BID [facility] Last Admin: 07/09/18 09:55 Dose: 1 applic Nadolol (Corgard -) 20 mg PO DAILY [facility] Nortriptyline HCl (Pamelor -) 25 mg PO HS [facility] Last Admin: 07/08/18 21:59 Dose: 25 mg Nystatin (Mycostatin Cream -) 1 applic TP BID [facility] Last Admin: 07/09/18 09:55 Dose: 1 applic Nystatin (Nystatin Oral Suspension -) 500,000 units PO Q6HPO [facility] Last Admin: 07/09/18 05:33 Dose: 500,000 units Pantoprazole Sodium (Protonix -) 40 mg PO DAILY [facility] Last Admin: 07/09/18 09:49 Dose: 40 mg Prednisone (Deltasone -) 20 mg PO DAILY [facility] Last Admin: 07/09/18 09:49 Dose: 20 mg - Objective Vital Signs: Vital Signs Temperature 98.6 F 07/09/18 06:00 Pulse Rate 91 H 07/09/18 06:00 Respiratory Rate 18 07/09/18 06:00 Blood Pressure 113/74 07/09/18 06:00 O2 Sat by Pulse Oximetry (%) 95 07/09/18 06:00 Labs: CBC, BMP 07/09/18 06:15 07/09/18 06:15
--- NOTE | 2018-07-09 10:06 | HP ---
Admitting History and Physical - Primary Care Physician PCP: Jose Harman - Admission Chief Complaint: RESPIRATORY DISTRESS History of Present Illness: The patient is a 77-year-old female with a past medical history significant for CAD (with stents), DM, HTN, anemia, CVA (L-sided residual), and breast CA presents to the emergency department from [facility] via ambulance with flushed skin. Per ID, around 11:18 am the patient complained for chest pain and the nurse reported the patient's face looked red and flushed. The patient was noted to be desaturated to 88% and was placed on non-rebreather. The patient was discharged from the hospital yesterday, was admitted to the ICU. The patient sputum was positive for Pseudomonas and was receiving treatment for pneumonia. The patient was discharged to [facility] with a prescription for Ceftazidime. The patient received her first dose of abx at 6: 00 am today. 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 poor prep in past.), Stent (cardiac), Tonsillectomy, Upper Endoscopy (h/o esoph varices. on nadalol. s/p banding. due to surveillance egd in 04/10/15) - Smoking History Smoking history: Unknown if ever smoked Have you smoked in the past 12 months: No Aproximately how many cigarettes per day: 0 If you are a former smoker, when did you quit?: over 30 years ago - Alcohol/Substance Use Hx Alcohol Use: No History of Substance Use: reports: None - Social History ADL: Support Services History of Recent Travel: Yes Home Medications - Allergies Allergies/Adverse Reactions: Allergies Allergy/AdvReac Type Severity Reaction Status Date / Time levofloxacin [From Levaquin] Allergy Intermediate Rash Verified 07/08/18 12:11 Penicillins Allergy Rash Verified 07/08/18 12:11 sulfamethoxazole AdvReac Intermediate Verified 07/08/18 12:11 [From Bactrim] trimethoprim [From Bactrim] AdvReac Intermediate Verified 07/08/18 12:11 - Home Medications Home Medications: Ambulatory Orders Aspirin [ASA -] 81 mg PO DAILY 10/09/14 Nadolol [Corgard -] 20 mg PO DAILY tablet 09/05/17 Escitalopram Oxalate [Lexapro -] 10 mg PO DAILY 01/24/18 Fludrocortisone Acetate [Florinef -] 0.1 mg PO DAILY 01/24/18 Fluticasone Furoate [Arnuity Ellipta] 100 mcg IH DAILY 01/24/18 Pantoprazole Sodium [Protonix] 40 mg PO DAILY 01/24/18 Atorvastatin Calcium [Lipitor] 10 mg PO HS 05/07/18 Nortriptyline HCl [Pamelor -] 25 mg PO DAILY 05/07/18 Acetaminophen [Tylenol .Regular Strength -] 650 mg PO Q6H PRN tablet 05/13/18 Budesonide [Pulmicort 0.5 mg Nebulizer -] 1 amp NEB RBID amp 05/13/18 Carbidopa/Levodopa 25/100 [Sinemet 25/100 -] 1 each PO TID tablet 05/13/18 Furosemide [Lasix] 40 mg PO BID #60 tablet 05/13/18 Gabapentin [Neurontin -] 100 mg PO TID capsule 05/13/18 Heparin - 5,000 unit SQ BID vial 05/13/18 Losartan Potassium [Cozaar -] 25 mg PO DAILY tablet 05/13/18 Ipratropium/Albuterol Sulfate [Iprat-Albut 0.5-3(2.5) mg/3 ml] 3 ml IH Q6H 06/28 Zinc Oxide 20% Topical Oint 454 gm NR ASDIR 06/28/18 Ceftazidime Pentahydrate [Fortaz (Restricted To Id) -] 1 gm IVPB Q8H-IV #30 vial 07/07/18 Guaifenesin/D-Methorphan Hb [Diabetic Tussin Dm -] 10 ml PO Q4H PRN ml Insulin (Levemir) [Levemir Vial] 35 units SQ HS units 07/07/18 Nystatin Cream [Mycostatin Cream -] 1 applic TP BID applic 07/07/18 Potassium Chloride [K-Dur -] 40 meq PO DAILY tablet.er 07/07/18 Prednisone 10 mg PO ASDIR #32 tablet 07/07/18 Insulin Lispro [Humalog] 0 unit SQ ASDIR 07/08/18 Family Disease History - Family Disease History Family Disease History: Diabetes: Brother (4 brothers), Other: Father ( 80's: unclear cancer), Mother ( 90's, unclear cause), Brother, Sister ( 7 sisters), Son (3, 1 : does not recall cause), Daughter (3) Review of Systems - Review of Systems Constitutional: reports: Loss of Appetite, Weakness Cardiovascular: reports: Shortness of Breath Respiratory: reports: Cough, SOB Gastrointestinal: reports: No Symptoms Musculoskeletal: reports: Back Pain, Decreased ROM, Joint Pain Physical Examination Vital Signs: Vital Signs Temperature 98.6 F 07/09/18 06:00 Pulse Rate 91 H 07/09/18 06:00 Respiratory Rate 18 07/09/18 06:00 Blood Pressure 113/74 07/09/18 06:00 O2 Sat by Pulse Oximetry (%) 95 07/09/18 06:00 Constitutional: Yes: Mild Distress Eyes: Yes: WNL HENT: Yes: WNL Neck: Yes: WNL Cardiovascular: Yes: Pulse Irregular Respiratory: Yes: Diminished, On Nasal O2, SOB Gastrointestinal: Yes: Soft Musculoskeletal: Yes: Back Pain, Muscle Weakness Extremities: Yes: Other Wound/Incision: Yes: Clean/Dry Neurological: Yes: Pre-Existing Deficit, Weakness ...Motor Strength: LLE, RLE Labs: CBC, BMP 07/09/18 06:15 07/09/18 06:15 Imaging - Results Cat Scan: Report Reviewed Problem List - Problems (1) Leg pain Code(s): M79.606 - PAIN IN LEG, UNSPECIFIED (2) Pneumonia Code(s): J18.9 - PNEUMONIA, UNSPECIFIED ORGANISM (3) Acute hypoxemic respiratory failure Code(s): J96.01 - ACUTE RESPIRATORY FAILURE WITH HYPOXIA (4) Anxiety Code(s): F41.9 - ANXIETY DISORDER, UNSPECIFIED (5) Back pain Code(s): M54.9 - DORSALGIA, UNSPECIFIED (6) Cirrhosis of liver Code(s): K74.60 - UNSPECIFIED CIRRHOSIS OF LIVER Qualifiers: Hepatic cirrhosis type: alcoholic cirrhosis Ascites presence: with ascites Qualified Code(s): K70.31 - Alcoholic cirrhosis of liver with ascites (7) Cough Code(s): R05 - COUGH Assessment/Plan IV ABX NEBS STEROIDS PULM EVAL ORTHOPEDIC EVAL BACK/LEG PAIN GET CT SPINE AND HIPS R/O COMPRESSION FRACTURE PAIN CONTROL PT EVAL
[2018-07-09] MEDS ORDERED: ALBUTEROL SO4 2.5/IPRATROPIUM 0.5 INH SOL 3 ML VIAL.NEB. NEB ONE (10:34)
--- NOTE | 2018-07-09 11:00 | CON.PULM ---
Consult Consult Specialty:: PULM/CCM Referred by:: MANOLO Reason for Consultation:: PNA - History of Present Illness Chief Complaint: SOB History of Present Illness: 77 F, CVA, CAD s/p stents, DM, Breast CA, alcoholic cirrhosis, esophageal varices, GI bleed, PUD, and HTN. Admitted via the ER due to shortness of breath and chest pain. Recent admission and treatment for Pseudomonas PNA and discharged 07/07 on Ceftazidime to continue for 7 more days. She was noted to have hypoxic to 88% with an elevated lactate and leukocytosis to 23.7K. 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 No: Cancer, Previously Intubated, Pulmonary Embolus, Pulmonary Fibrosis, Sleep Apnea Gastrointestinal: Yes: Ascites (h/o sbp intolerant to bactrim and levaquin), Esophageal Varices (h/o bleeding, banding and on nadalol), GI Bleed (variceal and duodenal ulcer), Peptic Ulcer Disease, Other (diabetic gastropareis, h/o hpylori rxed with pylera) Hepatobiliary: Yes: Cirrhosis Psych: Yes: Depression Endocrine: Yes: Diabetes Mellitus (historically poor control) Dermatology: Yes: Other (SACRAL DECUBITI) - Past Surgical History Past Surgical History: Yes: Colonoscopy (multiple large polyps. poor prep in past.), Stent (cardiac), Tonsillectomy, Upper Endoscopy (h/o esoph varices. on nadalol. s/p banding. due to surveillance egd in 04/10/15) - Alcohol/Substance Use Hx Alcohol Use: No History of Substance Use: reports: None - Smoking History Smoking history: Unknown if ever smoked Have you smoked in the past 12 months: No Aproximately how many cigarettes per day: 0 If you are a former smoker, when did you quit?: over 30 years ago - Social History Usual Living Arrangement: Alone ADL: Support Services History of Recent Travel: Yes Home Medications - Allergies Allergies/Adverse Reactions: Allergies Allergy/AdvReac Type Severity Reaction Status Date / Time levofloxacin [From Levaquin] Allergy Intermediate Rash Verified 07/08/18 12:11 Penicillins Allergy Rash Verified 07/08/18 12:11 sulfamethoxazole AdvReac Intermediate Verified 07/08/18 12:11 [From Bactrim] trimethoprim [From Bactrim] AdvReac Intermediate Verified 07/08/18 12:11 - Home Medications Home Medications: Ambulatory Orders Aspirin [ASA -] 81 mg PO DAILY 10/09/14 Nadolol [Corgard -] 20 mg PO DAILY tablet 09/05/17 Escitalopram Oxalate [Lexapro -] 10 mg PO DAILY 01/24/18 Fludrocortisone Acetate [Florinef -] 0.1 mg PO DAILY 01/24/18 Fluticasone Furoate [Arnuity Ellipta] 100 mcg IH DAILY 01/24/18 Pantoprazole Sodium [Protonix] 40 mg PO DAILY 01/24/18 Atorvastatin Calcium [Lipitor] 10 mg PO HS 05/07/18 Nortriptyline HCl [Pamelor -] 25 mg PO DAILY 05/07/18 Acetaminophen [Tylenol .Regular Strength -] 650 mg PO Q6H PRN tablet 05/13/18 Budesonide [Pulmicort 0.5 mg Nebulizer -] 1 amp NEB RBID amp 05/13/18 Carbidopa/Levodopa 25/100 [Sinemet 25/100 -] 1 each PO TID tablet 05/13/18 Furosemide [Lasix] 40 mg PO BID #60 tablet 05/13/18 Gabapentin [Neurontin -] 100 mg PO TID capsule 05/13/18 Heparin - 5,000 unit SQ BID vial 05/13/18 Losartan Potassium [Cozaar -] 25 mg PO DAILY tablet 05/13/18 Ipratropium/Albuterol Sulfate [Iprat-Albut 0.5-3(2.5) mg/3 ml] 3 ml IH Q6H 06/28 Zinc Oxide 20% Topical Oint 454 gm NR ASDIR 06/28/18 Ceftazidime Pentahydrate [Fortaz (Restricted To Id) -] 1 gm IVPB Q8H-IV #30 vial 07/07/18 Guaifenesin/D-Methorphan Hb [Diabetic Tussin Dm -] 10 ml PO Q4H PRN ml Insulin (Levemir) [Levemir Vial] 35 units SQ HS units 07/07/18 Nystatin Cream [Mycostatin Cream -] 1 applic TP BID applic 07/07/18 Potassium Chloride [K-Dur -] 40 meq PO DAILY tablet.er 07/07/18 Prednisone 10 mg PO ASDIR #32 tablet 07/07/18 Insulin Lispro [Humalog] 0 unit SQ ASDIR 07/08/18 Family Disease History - Family Disease History Family Disease History: Diabetes: Brother (4 brothers), Other: Father ( 80's: unclear cancer), Mother ( 90's, unclear cause), Brother, Sister ( 7 sisters), Son (3, 1 : does not recall cause), Daughter (3) Review of Systems - Review of Systems Constitutional: reports: Chills, Fever, Malaise. denies: Night Sweats, Unintentional Wgt. Loss Eyes: reports: No Symptoms HENT: reports: No Symptoms Neck: reports: No Symptoms Cardiovascular: reports: Chest Pain, Shortness of Breath. denies: Edema, Palpitations Respiratory: reports: Cough, SOB, SOB on Exertion. denies: Hemoptysis, Snoring , Wheezing Gastrointestinal: reports: No Symptoms Genitourinary: reports: No Symptoms Breasts: reports: No Symptoms Reported Musculoskeletal: reports: No Symptoms Integumentary: reports: No Symptoms Neurological: reports: No Symptoms Endocrine: reports: No Symptoms Hematology/Lymphatic: reports: No Symptoms Psychiatric: reports: No Symptoms Physical Exam Vital Sings: Vital Signs Temperature 98.6 F 07/09/18 06:00 Pulse Rate 91 H 07/09/18 06:00 Respiratory Rate 18 07/09/18 06:00 Blood Pressure 113/74 07/09/18 06:00 O2 Sat by Pulse Oximetry (%) 95 07/09/18 06:00 Constitutional: Yes: No Distress Eyes: Yes: Conjunctiva Clear, EOM Intact HENT: Yes: Atraumatic, Normocephalic Neck: Yes: Supple, Trachea Midline Cardiovascular: Yes: Regular Rate and Rhythm Respiratory: Yes: Cough, Diminished, Rhonchi, SOB, SOB on Exertion, Tachypnea. No: Accessory Muscle Use, Rales, Stridor, Wheezes ...Inspection: Yes: WNL ...Clubbing: No Gastrointestinal: Yes: Normal Bowel Sounds, Soft Renal/: Yes: WNL Musculoskeletal: Yes: WNL Extremities: Yes: WNL Edema: No Peripheral Pulses WNL: Yes Integumentary: Yes: WNL Neurological: Yes: WNL, Alert, Oriented ...Motor Strength: WNL Psychiatric: Yes: WNL, Alert, Oriented Labs: CBC, BMP 07/09/18 06:15 07/09/18 06:15 Imaging - Results Chest X-ray: Report Reviewed, Image Reviewed Problem List - Problems (1) Pneumonia Code(s): J18.9 - PNEUMONIA, UNSPECIFIED ORGANISM (2) Angina pectoris Code(s): I20.9 - ANGINA PECTORIS, UNSPECIFIED (3) Anxiety Code(s): F41.9 - ANXIETY DISORDER, UNSPECIFIED (4) Asthma Code(s): J45.909 - UNSPECIFIED ASTHMA, UNCOMPLICATED Qualifiers: Asthma severity: unspecified severity Asthma complication type: uncomplicated (5) Back pain Code(s): M54.9 - DORSALGIA, UNSPECIFIED (6) Breast cancer Code(s): C50.919 - MALIGNANT NEOPLASM OF UNSP SITE OF UNSPECIFIED FEMALE BREAST (7) Cirrhosis of liver Code(s): K74.60 - UNSPECIFIED CIRRHOSIS OF LIVER Qualifiers: Hepatic cirrhosis type: alcoholic cirrhosis Ascites presence: with ascites Qualified Code(s): K70.31 - Alcoholic cirrhosis of liver with ascites (8) Coronary artery disease Code(s): I25.10 - ATHSCL HEART DISEASE OF [place] CORONARY ARTERY W/O ANG PCTRS Qualifiers: Coronary Disease-Associated Artery/Lesion type: [place] artery [place] vs. transplanted heart: [place] heart Associated angina: without angina Qualified Code(s): I25.10 - Atherosclerotic heart disease of [place] coronary artery without angina pectoris (9) Cough Code(s): R05 - COUGH (10) Depression Code(s): F32.9 - MAJOR DEPRESSIVE DISORDER, SINGLE EPISODE, UNSPECIFIED (11) Diabetes Code(s): E11.9 - TYPE 2 DIABETES MELLITUS WITHOUT COMPLICATIONS Qualifiers: Diabetes mellitus type: type 2 (12) Elevated lactic acid level Code(s): R79.89 - OTHER SPECIFIED ABNORMAL FINDINGS OF BLOOD CHEMISTRY (13) Hx of antibiotic allergy Code(s): Z88.1 - ALLERGY STATUS TO OTHER ANTIBIOTIC AGENTS STATUS (14) Hyperlipidemia Code(s): E78.5 - HYPERLIPIDEMIA, UNSPECIFIED Qualifiers: Hyperlipidemia type: pure hypercholesterolemia Qualified Code(s): E78.00 - Pure hypercholesterolemia, unspecified; E78.0 - Pure hypercholesterolemia (15) Hypertension Code(s): I10 - ESSENTIAL (PRIMARY) HYPERTENSION (16) Interstitial lung disease Code(s): J84.9 - INTERSTITIAL PULMONARY DISEASE, UNSPECIFIED (17) Lactic acidosis Code(s): E87.2 - ACIDOSIS (18) Pneumonia Code(s): J18.9 - PNEUMONIA, UNSPECIFIED ORGANISM Qualifiers: (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 Assessment/Plan ABX per ID O2 as needed BD TX: standing and PRN Noted Prednisone VTE prophylaxis Lasix Will D/W ID if [place]UC[place] requires treatment Will follow Thank you. Dr Viveros
--- NOTE | 2018-07-09 11:00 | CONSULT ---
Consult - text type - Consultation Consultation Note: ORTHOPEDIC SURGERY CONSULTATION NOTE Department of Orthopedic Surgery HISTORY OF PRESENT ILLNESS Ms. Ribera is a 77 year old female with past medical history significant for CAD (with stents), DM, HTN, anemia, CVA (L-sided residual), and breast CA presents to the emergency department from [facility] via ambulance with flushed skin. The patient was discharged from the hospital yesterday, where she was admitted to the ICU. Per [facility], around 11am the patient complained for chest pain and the nurse reported the patient's face looked red and flushed. The patient was noted to be desaturated to 88% and was placed on non- rebreather. The orthopedic service was consulted by Dr. Valente for lower back and bilateral hip pain. Denies any other injuries. Denies numbness, tingling or other constitutional complaints. Denies tobacco use, drug use, alcohol abuse. The patient uses no assistive devices at baseline. FAMILY HISTORY non-contributory REVIEW OF SYMPTOMS A twelve-point review of systems was performed and was negative except as noted in HPI. PHYSICAL EXAM Constitutional: Alert and oriented to person, place, and time. Appears well- developed and well-nourished. No acute distress, appropriate mood and affect. Right Upper Extremity: Skin warm, dry, and intact; no lesions, rashes or ulcers noted. Muscle mass equal and symmetric to contralateral side. No atrophy noted. No masses or effusions noted. No tenderness to palpation all joints; nontender throughout rest of extremity. Full passive and active ROM, free from pain. Joints stable with no pathologic laxity. M/R/U/MSK/AX motor intact; SILT distally; 2+ radial pulses; Cap refill brisk. Tone and reflexes normal. Left Upper Extremity: Skin warm, dry, and intact; no lesions, rashes or ulcers noted. Muscle mass equal and symmetric to contralateral side. No atrophy noted. No masses or effusions noted. No tenderness to palpation all joints; nontender throughout rest of extremity. Full passive and active ROM, free from pain. Joints stable with no pathologic laxity. M/R/U/MSK/AX motor intact; SILT distally; 2+ radial pulses; Cap refill brisk. Tone and reflexes normal. Right Lower Extremity: Skin warm, dry, and intact; no lesions, rashes or ulcers noted. Muscle mass equal and symmetric to contralateral side. No atrophy noted. No masses or effusions noted. No tenderness to palpation all joints; nontender throughout rest of extremity. No cords or calf tenderness No significant calf/ankle edema. Full passive and active ROM of the knee and ankle, free from pain. FROM passive of the hip in flexion and rotation. Joints stable with no pathologic laxity. EHL/TA/GS motor intact; SILT distally; 2+ DP pulses; Cap refill brisk. Tone and reflexes normal. Has difficulty SLR but is able to perform it. Negative log roll test. Left Lower Extremity: Skin warm, dry, and intact; no lesions, rashes or ulcers noted. Muscle mass equal and symmetric to contralateral side. No atrophy noted. No masses or effusions noted. No tenderness to palpation all joints; nontender throughout rest of extremity. No cords or calf tenderness No significant calf/ankle edema. Full passive and active ROM, free from pain. Joints stable with no pathologic laxity. EHL/TA/GS motor intact; SILT distally; 2+ DP pulses; Cap refill brisk. Tone and reflexes normal. Able to SLR and has negative log roll test. 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 Hx Alcohol Use No History of Substance Use None Usual Living Arrangement Alone ADL Support Services History of Recent Travel Yes Allergies Allergy/AdvReac Type Severity Reaction Status Date / Time levofloxacin [From Levaquin] Allergy Intermediate Rash Verified 07/08/18 12:11 Penicillins Allergy Rash Verified 07/08/18 12:11 sulfamethoxazole AdvReac Intermediate Verified 07/08/18 12:11 [From Bactrim] trimethoprim [From Bactrim] AdvReac Intermediate Verified 07/08/18 12:11 Active Medications Generic Name Dose Route Start Last Admin Trade Name Freq PRN Reason Stop Dose Admin Acetaminophen 650 mg 07/08/18 15:41 07/08/18 18:07 Tylenol - PO 650 mg Q6H PRN Administration FEVER Albuterol/Ipratropium 1 amp 07/08/18 15:41 Duoneb - NEB Q6H PRN SHORTNESS OF BREATH Albuterol/Ipratropium 1 amp 07/09/18 14:00 Duoneb - NEB RTID KANNAN Aspirin 81 mg 07/09/18 10:00 07/09/18 09:49 Ecotrin - PO 81 mg DAILY KANNAN Administration Atorvastatin Calcium 20 mg 07/08/18 22:00 07/08/18 21:57 Lipitor - PO 20 mg HS KANNAN Administration Carbidopa/Levodopa 1 each 07/08/18 22:00 07/09/18 05:34 Sinemet 25/100 - PO 1 each TID KANNAN Administration Escitalopram Oxalate 10 mg 07/09/18 10:00 07/09/18 09:50 Lexapro - PO 10 mg DAILY KANNAN Administration Fludrocortisone Acetate 0.1 mg 07/09/18 10:00 Florinef - PO DAILY KANNAN Furosemide 40 mg 07/09/18 10:00 07/09/18 09:49 Lasix - PO 40 mg DAILY KANNAN Administration Gabapentin 100 mg 07/08/18 22:00 07/09/18 05:34 Neurontin - PO 100 mg TID KANNAN Administration Heparin Sodium (Porcine) 5,000 unit 07/08/18 22:00 07/09/18 09:49 Heparin - SQ 5,000 unit BID KANNAN Administration Meropenem 1 gm/ Dextrose 100 mls @ 200 mls/hr 07/08/18 23:00 07/09/18 09:50 IVPB 200 mls/hr Q8H-IV KANNAN Administration Insulin Aspart 1 vial 07/08/18 16:30 07/09/18 06:14 Novolog Vial Sliding Scale - SQ Not Given ACHS [facility] Protocol Insulin Detemir 35 units 07/08/18 22:00 07/08/18 21:58 Levemir Vial SQ 35 units HS KANNAN Administration Losartan Potassium 100 mg 07/09/18 10:00 07/09/18 09:50 Cozaar - PO 100 mg DAILY KANNAN Administration Melatonin 5 mg 07/09/18 00:30 07/09/18 00:45 Melatonin PO 5 mg HS PRN Administration INSOMNIA Multi-Ingredient Ointment 1 applic 07/08/18 22:00 07/09/18 09:55 Zinc Oxide TP 1 applic BID KANNAN Administration Nadolol 20 mg 07/09/18 10:00 Corgard - PO DAILY KANNAN Nortriptyline HCl 25 mg 07/08/18 22:00 07/08/18 21:59 Pamelor - PO 25 mg HS KANNAN Administration Nystatin 1 applic 07/08/18 22:00 07/09/18 09:55 Mycostatin Cream - TP 1 applic BID KANNAN Administration Nystatin 500,000 units 07/08/18 18:00 07/09/18 05:33 Nystatin Oral Suspension - PO 500,000 units Q6HPO KANNAN Administration Pantoprazole Sodium 40 mg 07/09/18 10:00 07/09/18 09:49 Protonix - PO 40 mg DAILY KANNAN Administration Prednisone 20 mg 07/09/18 10:00 07/09/18 09:49 Deltasone - PO 20 mg DAILY KANNAN Administration Vital Signs (last) Temp Pulse Resp BP Pulse Ox 98.6 F 91 H 18 113/74 95 07/09/18 06:00 07/09/18 06:00 07/09/18 06:00 07/09/18 06:00 07/09/18 06:00 Intake and Output 07/07/18 07/08/18 07/09/18 23:59 23:59 23:59 Intake Total 450 Balance 450 Intake: IV 250 Normal Saline - 250 ml @ 250 250 mls/hr IV ASDIR STA Rx#:[id number] IVPB 200 Other: Voiding Method Incontinent Incontinent Weight 120 lb Height 4 ft 11 in Body Mass Index (BMI) 24.2 Weight Measurement Method Est/Stated by Patient Laboratory 07/09/18 06:15 07/09/18 06:[address] thoracolumbar spine and CT pelvis pending. ASSESSMENT AND PLAN Ms. Ribera is a 77 year old female presenting with lower back pain and bilateral hip pain. - Pain control - DVT prophylaxis - Follow up imaging of spine and bilateral hips - Continue medical management - Will follow closely All questions were answered. Thank you for involving our team in the care of this patient. Please call our office with any questions: [phone]. Reynaldo Mcgovern, DO Orthopedic Surgery
[2018-07-09] MEDS: FLUDROCORTISONE ACETATE 0.1 MG TABLET (FP) PO SCH (11:21)
[2018-07-09] MEDS: NADOLOL 20 MG TABLET (FP) PO SCH (11:21)
[2018-07-09] MEDS: ACETAMINOPHEN 325 MG TABLET (FP) PO PRN ×2 (11:21→17:10)
[2018-07-09] MEDS: ALBUTEROL SO4 2.5/IPRATROPIUM 0.5 INH SOL 3 ML VIAL.NEB. NEB SCH ×2 (14:13→20:30)
--- NOTE | 2018-07-09 15:04 | PN ---
Progress Note, Physician History of Present Illness: Pt states she feels better today. Denies CP and is less short of breath, remains afebrile. c/o back pain. Tolerating antibiotic. - Current Medication List Current Medications: Active Medications Acetaminophen (Tylenol -) 650 mg PO Q6H PRN PRN Reason: FEVER Last Admin: 07/09/18 11:21 Dose: 650 mg Albuterol/Ipratropium (Duoneb -) 1 amp NEB Q6H PRN PRN Reason: SHORTNESS OF BREATH Albuterol/Ipratropium (Duoneb -) 1 amp NEB RTID [facility] Last Admin: 07/09/18 14:13 Dose: 1 amp Aspirin (Ecotrin -) 81 mg PO DAILY [facility] Last Admin: 07/09/18 09:49 Dose: 81 mg Atorvastatin Calcium (Lipitor -) 20 mg PO HS [facility] Last Admin: 07/08/18 21:57 Dose: 20 mg Carbidopa/Levodopa (Sinemet 25/100 -) 1 each PO TID [facility] Last Admin: 07/09/18 14:24 Dose: 1 each Escitalopram Oxalate (Lexapro -) 10 mg PO DAILY [facility] Last Admin: 07/09/18 09:50 Dose: 10 mg Fludrocortisone Acetate (Florinef -) 0.1 mg PO DAILY [facility] Last Admin: 07/09/18 11:21 Dose: 0.1 mg Furosemide (Lasix -) 40 mg PO DAILY [facility] Last Admin: 07/09/18 09:49 Dose: 40 mg Gabapentin (Neurontin -) 100 mg PO TID [facility] Last Admin: 07/09/18 14:24 Dose: 100 mg Heparin Sodium (Porcine) (Heparin -) 5,000 unit SQ BID [facility] Last Admin: 07/09/18 09:49 Dose: 5,000 unit Meropenem 1 gm/ Dextrose 100 mls @ 200 mls/hr IVPB Q8H-IV [facility] Last Admin: 07/09/18 09:50 Dose: 200 mls/hr Insulin Aspart (Novolog Vial Sliding Scale -) 1 vial SQ [facility]; Protocol Last Admin: 07/09/18 11:28 Dose: Not Given Insulin Detemir (Levemir Vial) 35 units SQ HS [facility] Last Admin: 07/08/18 21:58 Dose: 35 units Losartan Potassium (Cozaar -) 100 mg PO DAILY [facility] Last Admin: 07/09/18 09:50 Dose: 100 mg Melatonin (Melatonin) 5 mg PO HS PRN PRN Reason: INSOMNIA Last Admin: 07/09/18 00:45 Dose: 5 mg Multi-Ingredient Ointment (Zinc Oxide) 1 applic TP BID [facility] Last Admin: 07/09/18 09:55 Dose: 1 applic Nadolol (Corgard -) 20 mg PO DAILY [facility] Last Admin: 07/09/18 11:21 Dose: 20 mg Nortriptyline HCl (Pamelor -) 25 mg PO HS [facility] Last Admin: 07/08/18 21:59 Dose: 25 mg Nystatin (Mycostatin Cream -) 1 applic TP BID [facility] Last Admin: 07/09/18 09:55 Dose: 1 applic Nystatin (Nystatin Oral Suspension -) 500,000 units PO Q6HPO [facility] Last Admin: 07/09/18 14:24 Dose: 500,000 units Pantoprazole Sodium (Protonix -) 40 mg PO DAILY [facility] Last Admin: 07/09/18 09:49 Dose: 40 mg Prednisone (Deltasone -) 20 mg PO DAILY [facility] Last Admin: 07/09/18 09:49 Dose: 20 mg - Objective Vital Signs: Vital Signs Temperature 98.6 F 07/09/18 06:00 Pulse Rate 91 H 07/09/18 06:00 Respiratory Rate 18 07/09/18 06:00 Blood Pressure 113/74 07/09/18 06:00 O2 Sat by Pulse Oximetry (%) 96 07/09/18 09:00 Constitutional: Yes: No Distress, Calm Cardiovascular: Yes: Regular Rate and Rhythm Respiratory: Yes: Other (diffuse crackles) Gastrointestinal: Yes: Normal Bowel Sounds, Soft Extremities: Yes: WNL Integumentary: Yes: WNL Neurological: Yes: Alert Labs: CBC, BMP 07/09/18 06:15 07/09/18 06:15 Microbiology 07/08/18 18:45 Sputum - Expectorated Gram Stain - Final 07/08/18 20:30 Urine For Antigen Detection Legionella Antigen - Final 07/08/18 20:30 Urine For Antigen Detection Streptococcus pneumoniae Antigen (M - Final Blood/Urine cultures, resp isolates - pending Problem List - Problems (1) Pneumonia Code(s): J18.9 - PNEUMONIA, UNSPECIFIED ORGANISM (2) Acute hypoxemic respiratory failure Code(s): J96.01 - ACUTE RESPIRATORY FAILURE WITH HYPOXIA (3) Anxiety Code(s): F41.9 - ANXIETY DISORDER, UNSPECIFIED (4) Breast cancer Code(s): C50.919 - MALIGNANT NEOPLASM OF UNSP SITE OF UNSPECIFIED FEMALE BREAST (5) CVA (cerebral infarction) Code(s): I63.9 - CEREBRAL INFARCTION, UNSPECIFIED Qualifiers: Cerebral infarction mechanism: unspecified mechanism Qualified Code(s): I63.9 - Cerebral infarction, unspecified (6) Cirrhosis of liver Code(s): K74.60 - UNSPECIFIED CIRRHOSIS OF LIVER Qualifiers: Hepatic cirrhosis type: alcoholic cirrhosis Ascites presence: with ascites Qualified Code(s): K70.31 - Alcoholic cirrhosis of liver with ascites (7) Coronary artery disease Code(s): I25.10 - ATHSCL HEART DISEASE OF [place] CORONARY ARTERY W/O ANG PCTRS Qualifiers: Coronary Disease-Associated Artery/Lesion type: [place] artery [place] vs. transplanted heart: [place] heart Associated angina: without angina Qualified Code(s): I25.10 - Atherosclerotic heart disease of [place] coronary artery without angina pectoris (8) Diabetes Code(s): E11.9 - TYPE 2 DIABETES MELLITUS WITHOUT COMPLICATIONS Qualifiers: Diabetes mellitus type: type 2 (9) Esophageal varices without bleeding Code(s): I85.00 - ESOPHAGEAL VARICES WITHOUT BLEEDING (10) Hx of antibiotic allergy Code(s): Z88.1 - ALLERGY STATUS TO OTHER ANTIBIOTIC AGENTS STATUS (11) Hyperlipidemia Code(s): E78.5 - HYPERLIPIDEMIA, UNSPECIFIED Qualifiers: Hyperlipidemia type: pure hypercholesterolemia Qualified Code(s): E78.00 - Pure hypercholesterolemia, unspecified; E78.0 - Pure hypercholesterolemia (12) Hypertension Code(s): I10 - ESSENTIAL (PRIMARY) HYPERTENSION (13) Lactic acidosis Code(s): E87.2 - ACIDOSIS (14) Pneumonia Code(s): J18.9 - PNEUMONIA, UNSPECIFIED ORGANISM Qualifiers: (15) S/P coronary artery stent placement Code(s): Z95.5 - PRESENCE OF CORONARY ANGIOPLASTY IMPLANT AND GRAFT (16) Shortness of breath Code(s): R06.02 - SHORTNESS OF BREATH Assessment/Plan 77 y.o. female with PMH of CVA, CAD s/p stents, DM, HTN, Alcoholic cirrhosis, esophageal varices/GI bleed, PUD discharged to NH on Ceftazidime to continue treatment for Pseudomonas PNA one day prior presents with c/o SOB/Rt side chest pain, hypoxia, leukocytosis, and elevated lactic acid level. CXR reveals progressive changes over chronic interstitial markings. PNA Acute hypoxemic resp failure Leukocytosis - wbc decreased Lactic acidosis - resolved ?Pulmonary MAC CAD DM Hx of Breast CA Liver cirrhosis Hx of CVA - continue Meropenem for now --follow up culture results, Urinary ag neg for legionella/strep --collect sputum AFB, previously grew MAC --continue monitor wbc trend, vitals
[2018-07-09] MEDS ORDERED: INSULIN (NOVOLOG) ASPART 100 UNITS/ML 10ML VIAL ONE (17:08)
[2018-07-09] MEDS: ATORVASTATIN CA 20 MG TABLET (FP) PO SCH (21:39)
[2018-07-09] MEDS: NORTRIPTYLINE HCL 25 MG CAPSULE PO SCH (21:40)
[2018-07-09] MEDS: INSULIN (LEVEMIR) 100 UNITS/ML UNITS SQ SCH (21:40)
[2018-07-10] MEDS: ACETAMINOPHEN 325 MG TABLET (FP) PO PRN ×3 (00:06→22:13)
[2018-07-10] MEDS: NYSTATIN 500,000 UNITS/5 ML SUSPENSION PO SCH ×5 (00:07→23:38)
[2018-07-10] MEDS: MEROPENEM 1 GM in DEXTROSE 5%-WATER 100 ML IVPB SCH ×3 (02:00→17:26)
[2018-07-10] MEDS: GABAPENTIN 100 MG CAPSULE (FP) PO SCH ×3 (05:31→22:12)
[2018-07-10] MEDS: CARBIDOPA/LEVODOPA 25/100 TABLET (FP) PO SCH ×3 (05:31→22:13)
[2018-07-10] MEDS: INSULIN SLIDING SCALE (NOVOLOG) 1 VIAL SQ SCH ×4 (06:06→22:12)
[2018-07-10] MEDS: ALBUTEROL SO4 2.5/IPRATROPIUM 0.5 INH SOL 3 ML VIAL.NEB. NEB SCH ×2 (07:04→20:04)
[2018-07-10] MEDS ORDERED: PT OWN MED DRAWER 7, Y5N ONE ×4 (09:24→22:04)
[2018-07-10] MEDS: PANTOPRAZOLE 40 MG TABLET (FP) PO SCH (09:29)
[2018-07-10] MEDS: FUROSEMIDE 40 MG TABLET (FP) PO SCH (09:29)
[2018-07-10] MEDS: ESCITALOPRAM OXALATE 10 MG TABLET (FP) PO SCH (09:29)
[2018-07-10] MEDS: LIDOCAINE 5% TOPICAL PATCH TP SCH (09:29)
[2018-07-10] MEDS: LOSARTAN POTASSIUM 50 MG TABLET (FP) PO SCH (09:29)
[2018-07-10] MEDS: ASPIRIN COATED 81 MG TABLET.EC PO SCH (09:29)
[2018-07-10] MEDS: predniSONE 20 MG TABLET (UD) PO SCH (09:29)
[2018-07-10] MEDS: HEPARIN NA (PORCINE) 5,000 UNITS/ML 1ML VIAL SQ SCH ×2 (09:29→22:11)
[2018-07-10] MEDS: FLUDROCORTISONE ACETATE 0.1 MG TABLET (FP) PO SCH (09:30)
[2018-07-10] MEDS: NYSTATIN 100,000 UNIT/GM TOPICAL CREAM 15 GM TUBE TP SCH ×2 (09:30→22:12)
[2018-07-10] MEDS: ZINC OXIDE 20% TOPICAL OINTMENT 30 GM TUBE TP SCH ×2 (09:30→22:13)
[2018-07-10] MEDS: NADOLOL 20 MG TABLET (FP) PO SCH (09:30)
--- NOTE | 2018-07-10 10:48 | EKG ---
Test Reason : Blood Pressure : / mmHG Vent. Rate : 086 BPM Atrial Rate : 086 BPM P-R Int : 144 ms QRS Dur : 080 ms QT Int : 390 ms P-R-T Axes : 059 -24 046 degrees QTc Int : 466 ms NORMAL SINUS RHYTHM NORMAL ECG WHEN COMPARED WITH ECG OF 28-JUN-2018 19:13, NO SIGNIFICANT CHANGE WAS FOUND Confirmed by GELA YANG MD ([id number]) on 07/10/2018 10:48:14 AM Referred By: Confirmed By:GELA YANG MD
[2018-07-10] MEDS ORDERED: INSULIN (NOVOLOG) ASPART 100 UNITS/ML 10ML VIAL ONE (11:05)
--- NOTE | 2018-07-10 11:37 | PN ---
Progress Note (short form) - Note Progress Note: ORTHOPEDIC SURGERY PROGRESS NOTE Department of Orthopedic Surgery SUBJECTIVE No acute events overnight. No complaints currently. Denies chest pain, shortness of breath, or calf pain. No nausea or vomiting. Tolerating oral intake. Pain control difficult overnight, but improving. PHYSICAL EXAMINATION Right Lower Extremity: Skin warm, dry, and intact; no lesions, rashes or ulcers noted. Muscle mass equal and symmetric to contralateral side. No atrophy noted. No masses or effusions noted. No tenderness to palpation all joints; nontender throughout rest of extremity. No cords or calf tenderness No significant calf/ankle edema. Full passive and active ROM of the knee and ankle, free from pain. FROM passive of the hip in flexion and rotation. Joints stable with no pathologic laxity. EHL/TA/GS motor 4/5; SILT distally; 2+ DP pulses; Cap refill brisk. Tone and reflexes normal. Has difficulty SLR but is able to perform it. Negative log roll test. Left Lower Extremity: Skin warm, dry, and intact; no lesions, rashes or ulcers noted. Muscle mass equal and symmetric to contralateral side. No atrophy noted. No masses or effusions noted. No tenderness to palpation all joints; nontender throughout rest of extremity. No cords or calf tenderness No significant calf/ankle edema. Full passive and active ROM, free from pain. Joints stable with no pathologic laxity. EHL/TA/GS motor 4/5; SILT distally; 2+ DP pulses; Cap refill brisk. Tone and reflexes normal. Able to SLR and has negative log roll test. DVT Exam: No evidence of DVT seen on physical exam; No cords or calf tenderness ; No significant calf/ankle edema. Intake & Output 07/08/18 07/09/18 07/10/18 23:59 23:59 23:59 Intake Total 1450 100 Balance 1450 100 Intake: IV 250 Normal Saline - 250 ml @ 250 250 mls/hr IV ASDIR STA Rx#:[id number] IVPB 400 100 Oral 800 Other: Voiding Method Incontinent Bedpan # Unmeasured Voids Void 3 Bowel Movement Yes # Bowel Movements 2 Weight 120 lb Height 4 ft 11 in Body Mass Index (BMI) 24.2 Weight Measurement Method Est/Stated by Patient Active Medications Generic Name Dose Route Start Last Admin Trade Name Freq PRN Reason Stop Dose Admin Acetaminophen 650 mg 07/08/18 15:41 07/10/18 00:06 Tylenol - PO 650 mg Q6H PRN Administration FEVER Albuterol/Ipratropium 1 amp 07/08/18 15:41 Duoneb - NEB Q6H PRN SHORTNESS OF BREATH Albuterol/Ipratropium 1 amp 07/09/18 14:00 07/10/18 07:04 Duoneb - NEB 1 amp RTID KANNAN Administration Aspirin 81 mg 07/09/18 10:00 07/10/18 09:29 Ecotrin - PO 81 mg DAILY KANNAN Administration Atorvastatin Calcium 20 mg 07/08/18 22:00 07/09/18 21:39 Lipitor - PO 20 mg HS KANNAN Administration Carbidopa/Levodopa 1 each 07/08/18 22:00 07/10/18 05:31 Sinemet 25/100 - PO 1 each TID KANNAN Administration Escitalopram Oxalate 10 mg 07/09/18 10:00 07/10/18 09:29 Lexapro - PO 10 mg DAILY KANNAN Administration Fludrocortisone Acetate 0.1 mg 07/09/18 10:00 07/10/18 09:30 Florinef - PO 0.1 mg DAILY KANNAN Administration Furosemide 40 mg 07/09/18 10:00 07/10/18 09:29 Lasix - PO 40 mg DAILY KANNAN Administration Gabapentin 100 mg 07/08/18 22:00 07/10/18 05:31 Neurontin - PO 100 mg TID KANNAN Administration Heparin Sodium (Porcine) 5,000 unit 07/08/18 22:00 07/10/18 09:29 Heparin - SQ 5,000 unit BID KANNAN Administration Meropenem 1 gm/ Dextrose 100 mls @ 200 mls/hr 07/08/18 23:00 07/10/18 09:29 IVPB 200 mls/hr Q8H-IV KANNAN Administration Insulin Aspart 1 vial 07/08/18 16:30 07/10/18 11:06 Novolog Vial Sliding Scale - SQ 6 units ACHS KANNAN Administration Protocol Insulin Detemir 35 units 07/08/18 22:00 07/09/18 21:40 Levemir Vial SQ 35 units HS KANNAN Administration Lidocaine 1 patch 07/10/18 10:00 07/10/18 09:29 Lidoderm Patch - TP 1 patch DAILY [facility]NAN Administration Losartan Potassium 100 mg 07/09/18 10:00 07/10/18 09:29 Cozaar - PO 100 mg DAILY KANNAN Administration Melatonin 5 mg 07/09/18 00:30 07/09/18 21:39 Melatonin PO 5 mg HS PRN Administration INSOMNIA Miscellaneous 1 each 07/10/18 22:00 Lidoderm Patch Removal MC DAILY@2200 KANNAN Multi-Ingredient Ointment 1 applic 07/08/18 22:00 07/10/18 09:30 Zinc Oxide TP 1 applic BID [facility]NAN Administration Nadolol 20 mg 07/09/18 10:00 07/10/18 09:30 Corgard - PO 20 mg DAILY [facility]NAN Administration Nortriptyline HCl 25 mg 07/08/18 22:00 07/09/18 21:40 Pamelor - PO 25 mg HS KANNAN Administration Nystatin 1 applic 07/08/18 22:00 07/10/18 09:30 Mycostatin Cream - TP 1 applic BID [facility]NAN Administration Nystatin 500,000 units 07/08/18 18:00 07/10/18 11:06 Nystatin Oral Suspension - PO 500,000 units Q6HPO KANNAN Administration Pantoprazole Sodium 40 mg 07/09/18 10:00 07/10/18 09:29 Protonix - PO 40 mg DAILY KANNAN Administration Prednisone 20 mg 07/09/18 10:00 07/10/18 09:29 Deltasone - PO 20 mg DAILY KANNAN Administration Vital Signs (last) Temp Pulse Resp BP Pulse Ox 97.8 F 78 20 124/71 96 07/10/18 09:00 07/10/18 09:00 07/10/18 09:00 07/10/18 09:00 07/09/18 22:00 Laboratory 07/09/18 06:15 07/09/18 06:[address] Thoraco Lumbar spine and Pelvis: Pending ASSESSMENT AND PLAN Ms. Ribera is a 77 year old female presenting with lower back pain and bilateral hip pain. - Pain control - Recommend Neurosurgery consult - Dr. Rai followed at last visit. - DVT prophylaxis - Follow up imaging of spine and bilateral hips - Continue medical management - Will follow closely All questions were answered. Thank you for involving our team in the care of this patient. Please call our office with any questions: [phone]. Reynaldo Mcgovern, DO Orthopedic Surgery
--- NOTE | 2018-07-10 12:09 | PN ---
Progress Note (short form) - Note Progress Note: Breathing feels a little better today. Less SOB. No change in cough. No CP. Intake & Output 07/07/18 07/08/18 07/09/18 07/10/18 23:59 23:59 23:59 23:59 Intake Total 1450 100 Balance 1450 100 Weight 120 lb Last Vital Signs Temp Pulse Resp BP Pulse Ox 97.8 F 78 20 124/71 95 07/10/18 09:00 07/10/18 09:00 07/10/18 09:00 07/10/18 09:00 07/10/18 09:00 Active Medications Acetaminophen (Tylenol -) 650 mg PO Q6H PRN PRN Reason: FEVER Last Admin: 07/10/18 00:06 Dose: 650 mg Albuterol/Ipratropium (Duoneb -) 1 amp NEB Q6H PRN PRN Reason: SHORTNESS OF BREATH Albuterol/Ipratropium (Duoneb -) 1 amp NEB RTID [facility] Last Admin: 07/10/18 07:04 Dose: 1 amp Aspirin (Ecotrin -) 81 mg PO DAILY [facility] Last Admin: 07/10/18 09:29 Dose: 81 mg Atorvastatin Calcium (Lipitor -) 20 mg PO HS [facility] Last Admin: 07/09/18 21:39 Dose: 20 mg Carbidopa/Levodopa (Sinemet 25/100 -) 1 each PO TID [facility] Last Admin: 07/10/18 05:31 Dose: 1 each Escitalopram Oxalate (Lexapro -) 10 mg PO DAILY [facility] Last Admin: 07/10/18 09:29 Dose: 10 mg Fludrocortisone Acetate (Florinef -) 0.1 mg PO DAILY [facility] Last Admin: 07/10/18 09:30 Dose: 0.1 mg Furosemide (Lasix -) 40 mg PO DAILY [facility] Last Admin: 07/10/18 09:29 Dose: 40 mg Gabapentin (Neurontin -) 100 mg PO TID [facility] Last Admin: 07/10/18 05:31 Dose: 100 mg Heparin Sodium (Porcine) (Heparin -) 5,000 unit SQ BID [facility] Last Admin: 07/10/18 09:29 Dose: 5,000 unit Meropenem 1 gm/ Dextrose 100 mls @ 200 mls/hr IVPB Q8H-IV [facility] Last Admin: 07/10/18 09:29 Dose: 200 mls/hr Insulin Aspart (Novolog Vial Sliding Scale -) 1 vial SQ ACHS [facility]; Protocol Last Admin: 07/10/18 11:06 Dose: 6 units Insulin Detemir (Levemir Vial) 35 units SQ HS [facility] Last Admin: 07/09/18 21:40 Dose: 35 units Lidocaine (Lidoderm Patch -) 1 patch TP DAILY [facility] Last Admin: 07/10/18 09:29 Dose: 1 patch Losartan Potassium (Cozaar -) 100 mg PO DAILY [facility] Last Admin: 07/10/18 09:29 Dose: 100 mg Melatonin (Melatonin) 5 mg PO HS PRN PRN Reason: INSOMNIA Last Admin: 07/09/18 21:39 Dose: 5 mg Miscellaneous (Lidoderm Patch Removal) 1 each MC DAILY@2200 [facility] Multi-Ingredient Ointment (Zinc Oxide) 1 applic TP BID [facility] Last Admin: 07/10/18 09:30 Dose: 1 applic Nadolol (Corgard -) 20 mg PO DAILY [facility] Last Admin: 07/10/18 09:30 Dose: 20 mg Nortriptyline HCl (Pamelor -) 25 mg PO HS [facility] Last Admin: 07/09/18 21:40 Dose: 25 mg Nystatin (Mycostatin Cream -) 1 applic TP BID [facility] Last Admin: 07/10/18 09:30 Dose: 1 applic Nystatin (Nystatin Oral Suspension -) 500,000 units PO Q6HPO [facility] Last Admin: 07/10/18 11:06 Dose: 500,000 units Pantoprazole Sodium (Protonix -) 40 mg PO DAILY [facility] Last Admin: 07/10/18 09:29 Dose: 40 mg Prednisone (Deltasone -) 20 mg PO DAILY [facility] Last Admin: 07/10/18 09:29 Dose: 20 mg Constitutional: Yes: No Distress Eyes: Yes: Conjunctiva Clear, EOM Intact HENT: Yes: Atraumatic, Normocephalic Neck: Yes: Supple, Trachea Midline Cardiovascular: Yes: Regular Rate and Rhythm Respiratory: Yes: Cough, Diminished, Rhonchi, SOB on Exertion. No: Accessory Muscle Use, Rales, Stridor, Wheezes ...Inspection: Yes: WNL ...Clubbing: No Gastrointestinal: Yes: Normal Bowel Sounds, Soft Renal/: Yes: WNL Musculoskeletal: Yes: WNL Extremities: Yes: WNL Edema: No Peripheral Pulses WNL: Yes Integumentary: Yes: WNL Neurological: Yes: WNL, Alert, Oriented ...Motor Strength: WNL Psychiatric: Yes: WNL, Alert, Oriented Labs: Laboratory Results - last 24 hr 07/09/18 07/09/18 07/10/18 17:07 21:36 05:30 POC Glucometer 290 386 188 07/10/18 11:03 POC Glucometer 266 Problem List - Problems (1) Pneumonia Code(s): J18.9 - PNEUMONIA, UNSPECIFIED ORGANISM (2) Angina pectoris Code(s): I20.9 - ANGINA PECTORIS, UNSPECIFIED (3) Anxiety Code(s): F41.9 - ANXIETY DISORDER, UNSPECIFIED (4) Asthma Code(s): J45.909 - UNSPECIFIED ASTHMA, UNCOMPLICATED Qualifiers: Asthma severity: unspecified severity Asthma complication type: uncomplicated (5) Back pain Code(s): M54.9 - DORSALGIA, UNSPECIFIED (6) Breast cancer Code(s): C50.919 - MALIGNANT NEOPLASM OF UNSP SITE OF UNSPECIFIED FEMALE BREAST (7) Cirrhosis of liver Code(s): K74.60 - UNSPECIFIED CIRRHOSIS OF LIVER Qualifiers: Hepatic cirrhosis type: alcoholic cirrhosis Ascites presence: with ascites Qualified Code(s): K70.31 - Alcoholic cirrhosis of liver with ascites (8) Coronary artery disease Code(s): I25.10 - ATHSCL HEART DISEASE OF [place] CORONARY ARTERY W/O ANG PCTRS Qualifiers: Coronary Disease-Associated Artery/Lesion type: [place] artery [place] vs. transplanted heart: [place] heart Associated angina: without angina Qualified Code(s): I25.10 - Atherosclerotic heart disease of [place] coronary artery without angina pectoris (9) Cough Code(s): R05 - COUGH (10) Depression Code(s): F32.9 - MAJOR DEPRESSIVE DISORDER, SINGLE EPISODE, UNSPECIFIED (11) Diabetes Code(s): E11.9 - TYPE 2 DIABETES MELLITUS WITHOUT COMPLICATIONS Qualifiers: Diabetes mellitus type: type 2 (12) Elevated lactic acid level Code(s): R79.89 - OTHER SPECIFIED ABNORMAL FINDINGS OF BLOOD CHEMISTRY (13) Hx of antibiotic allergy Code(s): Z88.1 - ALLERGY STATUS TO OTHER ANTIBIOTIC AGENTS STATUS (14) Hyperlipidemia Code(s): E78.5 - HYPERLIPIDEMIA, UNSPECIFIED Qualifiers: Hyperlipidemia type: pure hypercholesterolemia Qualified Code(s): E78.00 - Pure hypercholesterolemia, unspecified; E78.0 - Pure hypercholesterolemia (15) Hypertension Code(s): I10 - ESSENTIAL (PRIMARY) HYPERTENSION (16) Interstitial lung disease Code(s): J84.9 - INTERSTITIAL PULMONARY DISEASE, UNSPECIFIED (17) Lactic acidosis Code(s): E87.2 - ACIDOSIS (18) Pneumonia Code(s): J18.9 - PNEUMONIA, UNSPECIFIED ORGANISM Qualifiers: (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 Assessment/Plan ABX per ID O2 as needed BD TX: standing and PRN Noted Prednisone VTE prophylaxis Lasix Will D/W ID if [place] requires treatment Dr Viveros Problem List - Problems (1) Pneumonia Code(s): J18.9 - PNEUMONIA, UNSPECIFIED ORGANISM (2) Angina pectoris Code(s): I20.9 - ANGINA PECTORIS, UNSPECIFIED (3) Anxiety Code(s): F41.9 - ANXIETY DISORDER, UNSPECIFIED (4) Asthma Code(s): J45.909 - UNSPECIFIED ASTHMA, UNCOMPLICATED Qualifiers: Asthma severity: unspecified severity Asthma complication type: uncomplicated (5) Back pain Code(s): M54.9 - DORSALGIA, UNSPECIFIED (6) Breast cancer Code(s): C50.919 - MALIGNANT NEOPLASM OF UNSP SITE OF UNSPECIFIED FEMALE BREAST (7) Cirrhosis of liver Code(s): K74.60 - UNSPECIFIED CIRRHOSIS OF LIVER Qualifiers: Hepatic cirrhosis type: alcoholic cirrhosis Ascites presence: with ascites Qualified Code(s): K70.31 - Alcoholic cirrhosis of liver with ascites (8) Coronary artery disease Code(s): I25.10 - ATHSCL HEART DISEASE OF [place] CORONARY ARTERY W/O ANG PCTRS Qualifiers: Coronary Disease-Associated Artery/Lesion type: [place] artery [place] vs. transplanted heart: [place] heart Associated angina: without angina Qualified Code(s): I25.10 - Atherosclerotic heart disease of [place] coronary artery without angina pectoris (9) Cough Code(s): R05 - COUGH (10) Depression Code(s): F32.9 - MAJOR DEPRESSIVE DISORDER, SINGLE EPISODE, UNSPECIFIED (11) Diabetes Code(s): E11.9 - TYPE 2 DIABETES MELLITUS WITHOUT COMPLICATIONS Qualifiers: Diabetes mellitus type: type 2 (12) Elevated lactic acid level Code(s): R79.89 - OTHER SPECIFIED ABNORMAL FINDINGS OF BLOOD CHEMISTRY (13) Hx of antibiotic allergy Code(s): Z88.1 - ALLERGY STATUS TO OTHER ANTIBIOTIC AGENTS STATUS (14) Hyperlipidemia Code(s): E78.5 - HYPERLIPIDEMIA, UNSPECIFIED Qualifiers: Hyperlipidemia type: pure hypercholesterolemia Qualified Code(s): E78.00 - Pure hypercholesterolemia, unspecified; E78.0 - Pure hypercholesterolemia (15) Hypertension Code(s): I10 - ESSENTIAL (PRIMARY) HYPERTENSION (16) Interstitial lung disease Code(s): J84.9 - INTERSTITIAL PULMONARY DISEASE, UNSPECIFIED (17) Lactic acidosis Code(s): E87.2 - ACIDOSIS (18) Pneumonia Code(s): J18.9 - PNEUMONIA, UNSPECIFIED ORGANISM Qualifiers: (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
--- NOTE | 2018-07-10 13:49 | PN ---
Progress Note, Physician History of Present Illness: patient feels better breathing today c/o of rt sided pain back - Current Medication List Current Medications: Active Medications Acetaminophen (Tylenol -) 650 mg PO Q6H PRN PRN Reason: FEVER Last Admin: 07/10/18 12:23 Dose: 650 mg Albuterol/Ipratropium (Duoneb -) 1 amp NEB Q6H PRN PRN Reason: SHORTNESS OF BREATH Albuterol/Ipratropium (Duoneb -) 1 amp NEB RTID [facility] Last Admin: 07/10/18 07:04 Dose: 1 amp Aspirin (Ecotrin -) 81 mg PO DAILY [facility] Last Admin: 07/10/18 09:29 Dose: 81 mg Atorvastatin Calcium (Lipitor -) 20 mg PO HS [facility] Last Admin: 07/09/18 21:39 Dose: 20 mg Carbidopa/Levodopa (Sinemet 25/100 -) 1 each PO TID [facility] Last Admin: 07/10/18 13:38 Dose: 1 each Escitalopram Oxalate (Lexapro -) 10 mg PO DAILY [facility] Last Admin: 07/10/18 09:29 Dose: 10 mg Fludrocortisone Acetate (Florinef -) 0.1 mg PO DAILY [facility] Last Admin: 07/10/18 09:30 Dose: 0.1 mg Furosemide (Lasix -) 40 mg PO DAILY [facility] Last Admin: 07/10/18 09:29 Dose: 40 mg Gabapentin (Neurontin -) 100 mg PO TID [facility] Last Admin: 07/10/18 13:38 Dose: 100 mg Heparin Sodium (Porcine) (Heparin -) 5,000 unit SQ BID [facility] Last Admin: 07/10/18 09:29 Dose: 5,000 unit Meropenem 1 gm/ Dextrose 100 mls @ 200 mls/hr IVPB Q8H-IV [facility] Last Admin: 07/10/18 09:29 Dose: 200 mls/hr Insulin Aspart (Novolog Vial Sliding Scale -) 1 vial SQ [facility]; Protocol Last Admin: 07/10/18 11:06 Dose: 6 units Insulin Detemir (Levemir Vial) 35 units SQ HS [facility] Last Admin: 07/09/18 21:40 Dose: 35 units Lidocaine (Lidoderm Patch -) 1 patch TP DAILY [facility] Last Admin: 07/10/18 09:29 Dose: 1 patch Losartan Potassium (Cozaar -) 100 mg PO DAILY [facility] Last Admin: 07/10/18 09:29 Dose: 100 mg Melatonin (Melatonin) 5 mg PO HS PRN PRN Reason: INSOMNIA Last Admin: 07/09/18 21:39 Dose: 5 mg Miscellaneous (Lidoderm Patch Removal) 1 each MC DAILY@2200 [facility] Multi-Ingredient Ointment (Zinc Oxide) 1 applic TP BID [facility] Last Admin: 07/10/18 09:30 Dose: 1 applic Nadolol (Corgard -) 20 mg PO DAILY [facility] Last Admin: 07/10/18 09:30 Dose: 20 mg Nortriptyline HCl (Pamelor -) 25 mg PO HS [facility] Last Admin: 07/09/18 21:40 Dose: 25 mg Nystatin (Mycostatin Cream -) 1 applic TP BID [facility] Last Admin: 07/10/18 09:30 Dose: 1 applic Nystatin (Nystatin Oral Suspension -) 500,000 units PO Q6HPO [facility] Last Admin: 07/10/18 11:06 Dose: 500,000 units Pantoprazole Sodium (Protonix -) 40 mg PO DAILY [facility] Last Admin: 07/10/18 09:29 Dose: 40 mg Prednisone (Deltasone -) 20 mg PO DAILY [facility] Last Admin: 07/10/18 09:29 Dose: 20 mg - Objective Vital Signs: Vital Signs Temperature 97.8 F 07/10/18 09:00 Pulse Rate 78 07/10/18 09:00 Respiratory Rate 20 07/10/18 09:00 Blood Pressure 124/71 07/10/18 09:00 O2 Sat by Pulse Oximetry (%) 95 07/10/18 09:00 Constitutional: Yes: No Distress, Calm Cardiovascular: Yes: S1, S2 Respiratory: Yes: Poor Air Entry, Rhonchi Gastrointestinal: Yes: Normal Bowel Sounds, Soft Musculoskeletal: Yes: WNL Extremities: Yes: WNL Neurological: Yes: Alert Psychiatric: Yes: Alert Labs: CBC, BMP 07/09/18 06:15 07/09/18 06:15 Assessment/Plan Problem List - Problems (1) Pneumonia Code(s): J18.9 - PNEUMONIA, UNSPECIFIED ORGANISM (2) Angina pectoris Code(s): I20.9 - ANGINA PECTORIS, UNSPECIFIED (3) Anxiety Code(s): F41.9 - ANXIETY DISORDER, UNSPECIFIED (4) Asthma Code(s): J45.909 - UNSPECIFIED ASTHMA, UNCOMPLICATED Qualifiers: Asthma severity: unspecified severity Asthma complication type: uncomplicated (5) Back pain Code(s): M54.9 - DORSALGIA, UNSPECIFIED (6) Breast cancer Code(s): C50.919 - MALIGNANT NEOPLASM OF UNSP SITE OF UNSPECIFIED FEMALE BREAST (7) Cirrhosis of liver Code(s): K74.60 - UNSPECIFIED CIRRHOSIS OF LIVER Qualifiers: Hepatic cirrhosis type: alcoholic cirrhosis Ascites presence: with ascites Qualified Code(s): K70.31 - Alcoholic cirrhosis of liver with ascites (8) Coronary artery disease Code(s): I25.10 - ATHSCL HEART DISEASE OF [place] CORONARY ARTERY W/O ANG PCTRS Qualifiers: Coronary Disease-Associated Artery/Lesion type: [place] artery [place] vs. transplanted heart: [place] heart Associated angina: without angina Qualified Code(s): I25.10 - Atherosclerotic heart disease of [place] coronary artery without angina pectoris (9) Cough Code(s): R05 - COUGH (10) Depression Code(s): F32.9 - MAJOR DEPRESSIVE DISORDER, SINGLE EPISODE, UNSPECIFIED (11) Diabetes Code(s): E11.9 - TYPE 2 DIABETES MELLITUS WITHOUT COMPLICATIONS Qualifiers: Diabetes mellitus type: type 2 (12) Elevated lactic acid level Code(s): R79.89 - OTHER SPECIFIED ABNORMAL FINDINGS OF BLOOD CHEMISTRY (13) Hx of antibiotic allergy Code(s): Z88.1 - ALLERGY STATUS TO OTHER ANTIBIOTIC AGENTS STATUS (14) Hyperlipidemia Code(s): E78.5 - HYPERLIPIDEMIA, UNSPECIFIED Qualifiers: Hyperlipidemia type: pure hypercholesterolemia Qualified Code(s): E78.00 - Pure hypercholesterolemia, unspecified; E78.0 - Pure hypercholesterolemia (15) Hypertension Code(s): I10 - ESSENTIAL (PRIMARY) HYPERTENSION (16) Interstitial lung disease Code(s): J84.9 - INTERSTITIAL PULMONARY DISEASE, UNSPECIFIED (17) Lactic acidosis Code(s): E87.2 - ACIDOSIS (18) Pneumonia Code(s): J18.9 - PNEUMONIA, UNSPECIFIED ORGANISM Qualifiers: (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
--- NOTE | 2018-07-10 14:25 | PN ---
Progress Note, Physician Chief Complaint: patient seen and examined - Current Medication List Current Medications: Active Medications Acetaminophen (Tylenol -) 650 mg PO Q6H PRN PRN Reason: FEVER Last Admin: 07/10/18 12:23 Dose: 650 mg Albuterol/Ipratropium (Duoneb -) 1 amp NEB Q6H PRN PRN Reason: SHORTNESS OF BREATH Albuterol/Ipratropium (Duoneb -) 1 amp NEB RTID [facility] Last Admin: 07/10/18 07:04 Dose: 1 amp Amino Acids (Prosource No Carb Liquid Pkt) 30 ml PO BID@0800,1730 [facility] Aspirin (Ecotrin -) 81 mg PO DAILY [facility] Last Admin: 07/10/18 09:29 Dose: 81 mg Atorvastatin Calcium (Lipitor -) 20 mg PO HS [facility] Last Admin: 07/09/18 21:39 Dose: 20 mg Carbidopa/Levodopa (Sinemet 25/100 -) 1 each PO TID [facility] Last Admin: 07/10/18 13:38 Dose: 1 each Escitalopram Oxalate (Lexapro -) 10 mg PO DAILY [facility] Last Admin: 07/10/18 09:29 Dose: 10 mg Fludrocortisone Acetate (Florinef -) 0.1 mg PO DAILY [facility] Last Admin: 07/10/18 09:30 Dose: 0.1 mg Furosemide (Lasix -) 40 mg PO DAILY [facility] Last Admin: 07/10/18 09:29 Dose: 40 mg Gabapentin (Neurontin -) 100 mg PO TID [facility] Last Admin: 07/10/18 13:38 Dose: 100 mg Heparin Sodium (Porcine) (Heparin -) 5,000 unit SQ BID [facility] Last Admin: 07/10/18 09:29 Dose: 5,000 unit Meropenem 1 gm/ Dextrose 100 mls @ 200 mls/hr IVPB Q8H-IV [facility] Last Admin: 07/10/18 09:29 Dose: 200 mls/hr Insulin Aspart (Novolog Vial Sliding Scale -) 1 vial SQ ACHS [facility]; Protocol Last Admin: 07/10/18 11:06 Dose: 6 units Insulin Detemir (Levemir Vial) 35 units SQ HS [facility] Last Admin: 07/09/18 21:40 Dose: 35 units Lidocaine (Lidoderm Patch -) 1 patch TP DAILY [facility] Last Admin: 07/10/18 09:29 Dose: 1 patch Losartan Potassium (Cozaar -) 100 mg PO DAILY [facility] Last Admin: 07/10/18 09:29 Dose: 100 mg Melatonin (Melatonin) 5 mg PO HS PRN PRN Reason: INSOMNIA Last Admin: 07/09/18 21:39 Dose: 5 mg Miscellaneous (Lidoderm Patch Removal) 1 each MC DAILY@2200 [facility] Multi-Ingredient Ointment (Zinc Oxide) 1 applic TP BID [facility] Last Admin: 07/10/18 09:30 Dose: 1 applic Nadolol (Corgard -) 20 mg PO DAILY [facility] Last Admin: 07/10/18 09:30 Dose: 20 mg Nortriptyline HCl (Pamelor -) 25 mg PO HS [facility] Last Admin: 07/09/18 21:40 Dose: 25 mg Nystatin (Mycostatin Cream -) 1 applic TP BID [facility] Last Admin: 07/10/18 09:30 Dose: 1 applic Nystatin (Nystatin Oral Suspension -) 500,000 units PO Q6HPO [facility] Last Admin: 07/10/18 11:06 Dose: 500,000 units Pantoprazole Sodium (Protonix -) 40 mg PO DAILY [facility] Last Admin: 07/10/18 09:29 Dose: 40 mg Prednisone (Deltasone -) 20 mg PO DAILY [facility] Last Admin: 07/10/18 09:29 Dose: 20 mg - Objective Vital Signs: Vital Signs Temperature 97.8 F 07/10/18 09:00 Pulse Rate 78 07/10/18 09:00 Respiratory Rate 20 07/10/18 09:00 Blood Pressure 124/71 07/10/18 09:00 O2 Sat by Pulse Oximetry (%) 95 07/10/18 09:00 Constitutional: Yes: Calm Cardiovascular: Yes: Regular Rate and Rhythm, S1, S2 Respiratory: Yes: CTA Bilaterally Edema: No Neurological: Yes: Alert Labs: CBC, BMP 07/09/18 06:15 07/09/18 06:15 Problem List - Problems (1) Pneumonia Assessment/Plan: iv abx Microbiology 07/08/18 18:45 Sputum - Expectorated Gram Stain - Final 07/08/18 18:45 Sputum - Expectorated Sputum Culture - Preliminary Pseudomonas Species prednsione nebs Code(s): J18.9 - PNEUMONIA, UNSPECIFIED ORGANISM (2) Back pain Assessment/Plan: MRI of spine noted compression fracture of L1-L4 ortho consult noted dr owen consulted -ANSELMO Code(s): M54.9 - DORSALGIA, UNSPECIFIED (3) Anxiety Assessment/Plan: dr willy garcia Code(s): F41.9 - ANXIETY DISORDER, UNSPECIFIED (4) Diabetes Assessment/Plan: bgm insulin sliding scale Code(s): E11.9 - TYPE 2 DIABETES MELLITUS WITHOUT COMPLICATIONS Qualifiers: Diabetes mellitus type: type 2
--- NOTE | 2018-07-10 16:57 | PN ---
Progress Note (short form) - Note Progress Note: ORTHOPEDIC SURGERY PROGRESS NOTE Department of Orthopedic Surgery SUBJECTIVE No acute events overnight. No complaints currently. Denies chest pain, shortness of breath, or calf pain. No nausea or vomiting. Tolerating oral intake. Pain control improving. PHYSICAL EXAMINATION No change in physical exam since this morning. Intake & Output 07/08/18 07/09/18 07/10/18 23:59 23:59 23:59 Intake Total 1450 550 Balance 1450 550 Intake: IV 250 Normal Saline - 250 ml @ 250 250 mls/hr IV ASDIR STA Rx#:[id number] IVPB 400 100 Oral 800 450 Other: Voiding Method Incontinent Bedpan Incontinent # Unmeasured Voids Void 3 2 Bowel Movement Yes No # Bowel Movements 2 Weight 120 lb 120 lb Height 4 ft 11 in 4 ft 11 in Body Mass Index (BMI) 24.2 24.2 Weight Measurement Method Est/Stated by Patient Active Medications Generic Name Dose Route Start Last Admin Trade Name Freq PRN Reason Stop Dose Admin Acetaminophen 650 mg 07/08/18 15:41 07/10/18 12:23 Tylenol - PO 650 mg Q6H PRN Administration FEVER Albuterol/Ipratropium 1 amp 07/08/18 15:41 Duoneb - NEB Q6H PRN SHORTNESS OF BREATH Albuterol/Ipratropium 1 amp 07/09/18 14:00 07/10/18 07:04 Duoneb - NEB 1 amp RTID [facility] Administration Amino Acids 30 ml 07/10/18 17:30 Prosource No Carb Liquid Pkt PO BID@0800,1730 [facility] Aspirin 81 mg 07/09/18 10:00 07/10/18 09:29 Ecotrin - PO 81 mg DAILY [facility] Administration Atorvastatin Calcium 20 mg 07/08/18 22:00 07/09/18 21:39 Lipitor - PO 20 mg HS [facility] Administration Carbidopa/Levodopa 1 each 07/08/18 22:00 07/10/18 13:38 Sinemet 25/100 - PO 1 each TID [facility] Administration Escitalopram Oxalate 10 mg 07/09/18 10:00 07/10/18 09:29 Lexapro - PO 10 mg DAILY [facility] Administration Fludrocortisone Acetate 0.1 mg 07/09/18 10:00 07/10/18 09:30 Florinef - PO 0.1 mg DAILY [facility] Administration Furosemide 40 mg 07/09/18 10:00 07/10/18 09:29 Lasix - PO 40 mg DAILY [facility] Administration Gabapentin 100 mg 07/08/18 22:00 07/10/18 13:38 Neurontin - PO 100 mg TID [facility] Administration Heparin Sodium (Porcine) 5,000 unit 07/08/18 22:00 07/10/18 09:29 Heparin - SQ 5,000 unit BID [facility] Administration Meropenem 1 gm/ Dextrose 100 mls @ 200 mls/hr 07/08/18 23:00 07/10/18 09:29 IVPB 200 mls/hr Q8H-IV [facility] Administration Insulin Aspart 1 vial 07/08/18 16:30 07/10/18 11:06 Novolog Vial Sliding Scale - SQ 6 units ACHS [facility] Administration Protocol Insulin Detemir 35 units 07/08/18 22:00 07/09/18 21:40 Levemir Vial SQ 35 units HS [facility] Administration Lidocaine 1 patch 07/10/18 10:00 07/10/18 09:29 Lidoderm Patch - TP 1 patch DAILY [facility] Administration Losartan Potassium 100 mg 07/09/18 10:00 07/10/18 09:29 Cozaar - PO 100 mg DAILY [facility] Administration Melatonin 5 mg 07/09/18 00:30 07/09/18 21:39 Melatonin PO 5 mg HS PRN Administration INSOMNIA Miscellaneous 1 each 07/10/18 22:00 Lidoderm Patch Removal MC DAILY@2200 [facility] Multi-Ingredient Ointment 1 applic 07/08/18 22:00 07/10/18 09:30 Zinc Oxide TP 1 applic BID [facility] Administration Nadolol 20 mg 07/09/18 10:00 07/10/18 09:30 Corgard - PO 20 mg DAILY [facility] Administration Nortriptyline HCl 25 mg 07/08/18 22:00 07/09/18 21:40 Pamelor - PO 25 mg HS [facility] Administration Nystatin 1 applic 07/08/18 22:00 07/10/18 09:30 Mycostatin Cream - TP 1 applic BID [facility] Administration Nystatin 500,000 units 07/08/18 18:00 07/10/18 11:06 Nystatin Oral Suspension - PO 500,000 units Q6HPO [facility] Administration Pantoprazole Sodium 40 mg 07/09/18 10:00 07/10/18 09:29 Protonix - PO 40 mg DAILY [facility] Administration Prednisone 20 mg 07/09/18 10:00 07/10/18 09:29 Deltasone - PO 20 mg DAILY [facility] Administration Vital Signs (last) Temp Pulse Resp BP Pulse Ox 98.2 F 80 20 106/48 L 95 07/10/18 15:33 07/10/18 15:33 07/10/18 09:00 07/10/18 15:33 07/10/18 09:00 Laboratory 07/09/18 06:15 07/09/18 06:[address] Pelvis: Right minimally displaced inferior/superior pubic rami fracture at the symphisis. ASSESSMENT AND PLAN Ms. Ribera is a 77 year old female presenting with a minimally displaced right inferior/superior pubic rami fracture. - Pain control - WBAT RLE from orthopedic standpoint - Recommend Neurosurgery consult - DVT prophylaxis - Continue medical management - No further orthopedic surgical intervention at this time. All questions were answered. Thank you for involving our team in the care of this patient. Please call our office with any questions: [phone]. Reynaldo Mcgovern, DO Orthopedic Surgery
[2018-07-10] MEDS: AMINO ACIDS/PROTEIN HYDROLYS 30 ML LIQUID.PKT PO SCH (17:27)
[2018-07-10] MEDS: INSULIN (LEVEMIR) 100 UNITS/ML UNITS SQ SCH (22:11)
[2018-07-10] MEDS: LIDOCAINE PATCH REMOVAL MC SCH (22:11)
[2018-07-10] MEDS: ATORVASTATIN CA 20 MG TABLET (FP) PO SCH (22:12)
[2018-07-10] MEDS: NORTRIPTYLINE HCL 25 MG CAPSULE PO SCH (22:12)
[2018-07-10] MEDS: MELATONIN 5 MG TABLETS PO PRN (22:13)
[2018-07-11] MEDS ORDERED: PT OWN MED DRAWER 7, Y5N ONE ×5 (02:18→21:19)
[2018-07-11] MEDS: MEROPENEM 1 GM in DEXTROSE 5%-WATER 100 ML IVPB SCH ×3 (02:41→17:50)
[2018-07-11] MEDS: CARBIDOPA/LEVODOPA 25/100 TABLET (FP) PO SCH ×3 (06:21→21:48)
[2018-07-11] MEDS: INSULIN SLIDING SCALE (NOVOLOG) 1 VIAL SQ SCH ×4 (06:21→21:48)
[2018-07-11] MEDS: GABAPENTIN 100 MG CAPSULE (FP) PO SCH ×3 (06:21→21:47)
[2018-07-11] MEDS: NYSTATIN 500,000 UNITS/5 ML SUSPENSION PO SCH ×3 (06:21→17:15)
[2018-07-11] MEDS: AMINO ACIDS/PROTEIN HYDROLYS 30 ML LIQUID.PKT PO SCH ×2 (08:08→17:15)
[2018-07-11] MEDS: ALBUTEROL SO4 2.5/IPRATROPIUM 0.5 INH SOL 3 ML VIAL.NEB. NEB SCH ×3 (08:39→20:15)
--- NOTE | 2018-07-11 09:51 | PN ---
Progress Note (short form) - Note Progress Note: OOB to chair. Breathing feels a little better today. Less SOB. No change in cough. No CP. Reports some mild right hip/inguinal area discomfort. Intake & Output 07/08/18 07/09/18 07/10/18 07/11/18 23:59 23:59 23:59 23:59 Intake Total 1450 550 Balance 1450 550 Weight 120 lb 120 lb Last Vital Signs Temp Pulse Resp BP Pulse Ox 97.6 F 94 H 20 114/54 L 96 07/11/18 05:00 07/11/18 09:29 07/11/18 09:29 07/11/18 09:29 07/10/18 21:00 Active Medications Acetaminophen (Tylenol -) 650 mg PO Q6H PRN PRN Reason: FEVER Last Admin: 07/10/18 22:13 Dose: 650 mg Albuterol/Ipratropium (Duoneb -) 1 amp NEB Q6H PRN PRN Reason: SHORTNESS OF BREATH Albuterol/Ipratropium (Duoneb -) 1 amp NEB RTID [facility] Last Admin: 07/11/18 08:39 Dose: 1 amp Amino Acids (Prosource No Carb Liquid Pkt) 30 ml PO BID@0800,1730 [facility] Last Admin: 07/11/18 08:08 Dose: 30 ml Aspirin (Ecotrin -) 81 mg PO DAILY [facility] Last Admin: 07/10/18 09:29 Dose: 81 mg Atorvastatin Calcium (Lipitor -) 20 mg PO HS [facility] Last Admin: 07/10/18 22:12 Dose: 20 mg Carbidopa/Levodopa (Sinemet 25/100 -) 1 each PO TID [facility] Last Admin: 07/11/18 06:21 Dose: 1 each Escitalopram Oxalate (Lexapro -) 10 mg PO DAILY [facility] Last Admin: 07/10/18 09:29 Dose: 10 mg Fludrocortisone Acetate (Florinef -) 0.1 mg PO DAILY [facility] Last Admin: 07/10/18 09:30 Dose: 0.1 mg Furosemide (Lasix -) 40 mg PO DAILY [facility] Last Admin: 07/10/18 09:29 Dose: 40 mg Gabapentin (Neurontin -) 100 mg PO TID [facility] Last Admin: 07/11/18 06:21 Dose: 100 mg Heparin Sodium (Porcine) (Heparin -) 5,000 unit SQ BID [facility] Last Admin: 07/10/18 22:11 Dose: 5,000 unit Meropenem 1 gm/ Dextrose 100 mls @ 200 mls/hr IVPB Q8H-IV [facility] Last Admin: 07/11/18 02:41 Dose: 200 mls/hr Insulin Aspart (Novolog Vial Sliding Scale -) 1 vial SQ ACHS [facility]; Protocol Last Admin: 07/11/18 06:21 Dose: Not Given Insulin Detemir (Levemir Vial) 35 units SQ HS [facility] Last Admin: 07/10/18 22:11 Dose: 35 units Lidocaine (Lidoderm Patch -) 1 patch TP DAILY [facility] Last Admin: 07/10/18 09:29 Dose: 1 patch Losartan Potassium (Cozaar -) 100 mg PO DAILY [facility] Last Admin: 07/10/18 09:29 Dose: 100 mg Melatonin (Melatonin) 5 mg PO HS PRN PRN Reason: INSOMNIA Last Admin: 07/10/18 22:13 Dose: 5 mg Miscellaneous (Lidoderm Patch Removal) 1 each MC DAILY@2200 [facility] Last Admin: 07/10/18 22:11 Dose: 1 each Multi-Ingredient Ointment (Zinc Oxide) 1 applic TP BID [facility] Last Admin: 07/10/18 22:13 Dose: 1 applic Nadolol (Corgard -) 20 mg PO DAILY [facility] Last Admin: 07/10/18 09:30 Dose: 20 mg Nortriptyline HCl (Pamelor -) 25 mg PO HS [facility] Last Admin: 07/10/18 22:12 Dose: 25 mg Nystatin (Mycostatin Cream -) 1 applic TP BID [facility] Last Admin: 07/10/18 22:12 Dose: 1 applic Nystatin (Nystatin Oral Suspension -) 500,000 units PO Q6HPO [facility] Last Admin: 07/11/18 06:21 Dose: 500,000 units Pantoprazole Sodium (Protonix -) 40 mg PO DAILY [facility] Last Admin: 07/10/18 09:29 Dose: 40 mg Prednisone (Deltasone -) 20 mg PO DAILY [facility] Last Admin: 07/10/18 09:29 Dose: 20 mg Constitutional: Yes: No Distress Eyes: Yes: Conjunctiva Clear, EOM Intact HENT: Yes: Atraumatic, Normocephalic Neck: Yes: Supple, Trachea Midline Cardiovascular: Yes: Regular Rate and Rhythm Respiratory: Yes: Cough, Diminished, Rhonchi, SOB on Exertion. No: Accessory Muscle Use, Rales, Stridor, Wheezes ...Inspection: Yes: WNL ...Clubbing: No Gastrointestinal: Yes: Normal Bowel Sounds, Soft Renal/: Yes: WNL Musculoskeletal: Yes: WNL Extremities: Yes: WNL Edema: No Peripheral Pulses WNL: Yes Integumentary: Yes: WNL Neurological: Yes: WNL, Alert, Oriented ...Motor Strength: WNL Psychiatric: Yes: WNL, Alert, Oriented Labs: Laboratory Results - last 24 hr 07/10/18 07/10/18 07/10/18 11:03 16:51 22:10 POC Glucometer 266 390 396 07/11/18 06:20 POC Glucometer 116 Problem List - Problems (1) Pneumonia Code(s): J18.9 - PNEUMONIA, UNSPECIFIED ORGANISM (2) Angina pectoris Code(s): I20.9 - ANGINA PECTORIS, UNSPECIFIED (3) Anxiety Code(s): F41.9 - ANXIETY DISORDER, UNSPECIFIED (4) Asthma Code(s): J45.909 - UNSPECIFIED ASTHMA, UNCOMPLICATED Qualifiers: Asthma severity: unspecified severity Asthma complication type: uncomplicated (5) Back pain Code(s): M54.9 - DORSALGIA, UNSPECIFIED (6) Breast cancer Code(s): C50.919 - MALIGNANT NEOPLASM OF UNSP SITE OF UNSPECIFIED FEMALE BREAST (7) Cirrhosis of liver Code(s): K74.60 - UNSPECIFIED CIRRHOSIS OF LIVER Qualifiers: Hepatic cirrhosis type: alcoholic cirrhosis Ascites presence: with ascites Qualified Code(s): K70.31 - Alcoholic cirrhosis of liver with ascites (8) Coronary artery disease Code(s): I25.10 - ATHSCL HEART DISEASE OF [place] CORONARY ARTERY W/O ANG PCTRS Qualifiers: Coronary Disease-Associated Artery/Lesion type: [place] artery [place] vs. transplanted heart: [place] heart Associated angina: without angina Qualified Code(s): I25.10 - Atherosclerotic heart disease of [place] coronary artery without angina pectoris (9) Cough Code(s): R05 - COUGH (10) Depression Code(s): F32.9 - MAJOR DEPRESSIVE DISORDER, SINGLE EPISODE, UNSPECIFIED (11) Diabetes Code(s): E11.9 - TYPE 2 DIABETES MELLITUS WITHOUT COMPLICATIONS Qualifiers: Diabetes mellitus type: type 2 (12) Elevated lactic acid level Code(s): R79.89 - OTHER SPECIFIED ABNORMAL FINDINGS OF BLOOD CHEMISTRY (13) Hx of antibiotic allergy Code(s): Z88.1 - ALLERGY STATUS TO OTHER ANTIBIOTIC AGENTS STATUS (14) Hyperlipidemia Code(s): E78.5 - HYPERLIPIDEMIA, UNSPECIFIED Qualifiers: Hyperlipidemia type: pure hypercholesterolemia Qualified Code(s): E78.00 - Pure hypercholesterolemia, unspecified; E78.0 - Pure hypercholesterolemia (15) Hypertension Code(s): I10 - ESSENTIAL (PRIMARY) HYPERTENSION (16) Interstitial lung disease Code(s): J84.9 - INTERSTITIAL PULMONARY DISEASE, UNSPECIFIED (17) Lactic acidosis Code(s): E87.2 - ACIDOSIS (18) Pneumonia Code(s): J18.9 - PNEUMONIA, UNSPECIFIED ORGANISM Qualifiers: (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 Assessment/Plan ABX per ID O2 as needed BD TX: standing and PRN Noted Prednisone VTE prophylaxis Lasix D/W ID: no treatment for [place] at this time Dr Viveros Problem List - Problems (1) Pneumonia Code(s): J18.9 - PNEUMONIA, UNSPECIFIED ORGANISM (2) Angina pectoris Code(s): I20.9 - ANGINA PECTORIS, UNSPECIFIED (3) Anxiety Code(s): F41.9 - ANXIETY DISORDER, UNSPECIFIED (4) Asthma Code(s): J45.909 - UNSPECIFIED ASTHMA, UNCOMPLICATED Qualifiers: Asthma severity: unspecified severity Asthma complication type: uncomplicated (5) Back pain Code(s): M54.9 - DORSALGIA, UNSPECIFIED (6) Breast cancer Code(s): C50.919 - MALIGNANT NEOPLASM OF UNSP SITE OF UNSPECIFIED FEMALE BREAST (7) Cirrhosis of liver Code(s): K74.60 - UNSPECIFIED CIRRHOSIS OF LIVER Qualifiers: Hepatic cirrhosis type: alcoholic cirrhosis Ascites presence: with ascites Qualified Code(s): K70.31 - Alcoholic cirrhosis of liver with ascites (8) Coronary artery disease Code(s): I25.10 - ATHSCL HEART DISEASE OF [place] CORONARY ARTERY W/O ANG PCTRS Qualifiers: Coronary Disease-Associated Artery/Lesion type: [place] artery [place] vs. transplanted heart: [place] heart Associated angina: without angina Qualified Code(s): I25.10 - Atherosclerotic heart disease of [place] coronary artery without angina pectoris (9) Cough Code(s): R05 - COUGH (10) Depression Code(s): F32.9 - MAJOR DEPRESSIVE DISORDER, SINGLE EPISODE, UNSPECIFIED (11) Diabetes Code(s): E11.9 - TYPE 2 DIABETES MELLITUS WITHOUT COMPLICATIONS Qualifiers: Diabetes mellitus type: type 2 (12) Elevated lactic acid level Code(s): R79.89 - OTHER SPECIFIED ABNORMAL FINDINGS OF BLOOD CHEMISTRY (13) Hx of antibiotic allergy Code(s): Z88.1 - ALLERGY STATUS TO OTHER ANTIBIOTIC AGENTS STATUS (14) Hyperlipidemia Code(s): E78.5 - HYPERLIPIDEMIA, UNSPECIFIED Qualifiers: Hyperlipidemia type: pure hypercholesterolemia Qualified Code(s): E78.00 - Pure hypercholesterolemia, unspecified; E78.0 - Pure hypercholesterolemia (15) Hypertension Code(s): I10 - ESSENTIAL (PRIMARY) HYPERTENSION (16) Interstitial lung disease Code(s): J84.9 - INTERSTITIAL PULMONARY DISEASE, UNSPECIFIED (17) Lactic acidosis Code(s): E87.2 - ACIDOSIS (18) Pneumonia Code(s): J18.9 - PNEUMONIA, UNSPECIFIED ORGANISM Qualifiers: (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
[2018-07-11] MEDS: ASPIRIN COATED 81 MG TABLET.EC PO SCH (10:23)
[2018-07-11] MEDS: predniSONE 20 MG TABLET (UD) PO SCH (10:23)
[2018-07-11] MEDS: FLUDROCORTISONE ACETATE 0.1 MG TABLET (FP) PO SCH (10:23)
[2018-07-11] MEDS: LIDOCAINE 5% TOPICAL PATCH TP SCH (10:24)
[2018-07-11] MEDS: HEPARIN NA (PORCINE) 5,000 UNITS/ML 1ML VIAL SQ SCH ×2 (10:24→21:46)
[2018-07-11] MEDS: ESCITALOPRAM OXALATE 10 MG TABLET (FP) PO SCH (10:24)
[2018-07-11] MEDS: NYSTATIN 100,000 UNIT/GM TOPICAL CREAM 15 GM TUBE TP SCH ×2 (10:25→21:47)
[2018-07-11] MEDS: PANTOPRAZOLE 40 MG TABLET (FP) PO SCH (10:25)
[2018-07-11] MEDS: ZINC OXIDE 20% TOPICAL OINTMENT 30 GM TUBE TP SCH ×2 (10:25→21:48)
[2018-07-11] MEDS: NADOLOL 20 MG TABLET (FP) PO SCH (11:10)
[2018-07-11] MEDS: FUROSEMIDE 40 MG TABLET (FP) PO SCH (11:10)
--- NOTE | 2018-07-11 11:18 | PN ---
Progress Note, Physician Chief Complaint: Respiratory distress History of Present Illness: Known to Dr Song's service Previous sputum culture showed Pseudomnas Aerugenosa CT lumbar spine: Extensive compression deformity of L1 vertebral body (vertebra plana) is seen with retropulsion causing central spinal canal stenosis. Vacuum phenomena within the compressed vertebral body resolved. The height of compressed vertebral body unchanged from June 29, 2018, increased in comparison to MRI of lumbosacral spine May 21, 2018. L4. Chronic compression fracture status post vertebroplasty. Unchanged height of the vertebral body in comparison to MRI of lumbosacral spine June 07, 2018. New compression deformities are seen. The contour, height of vertebral bodies unchanged from prior examinations. CT Thoracic spine: Demineralized osseous structures. Extensive compression deformity of L1 vertebral body (vertebra plana) is seen with retropulsion causing central spinal canal stenosis. Vacuum phenomena within the compressed vertebral body resolved. The height of compressed vertebral body unchanged from June 29, 2018, increased in comparison to MRI of lumbosacral spine May 21, 2018. L4. Chronic compression fracture status post vertebroplasty. Unchanged height of the vertebral body in comparison to MRI of lumbosacral spine June 07, 2018. New compression deformities are seen. The contour, height of vertebral bodies unchanged from prior examinations. CT pelvis: Fractures of the right superior and inferior right rami at the symphysis pubis. Please see above discussion. - Current Medication List Current Medications: Active Medications Acetaminophen (Tylenol -) 650 mg PO Q6H PRN PRN Reason: FEVER Last Admin: 07/10/18 22:13 Dose: 650 mg Albuterol/Ipratropium (Duoneb -) 1 amp NEB Q6H PRN PRN Reason: SHORTNESS OF BREATH Albuterol/Ipratropium (Duoneb -) 1 amp NEB RTID [facility] Last Admin: 07/11/18 08:39 Dose: 1 amp Amino Acids (Prosource No Carb Liquid Pkt) 30 ml PO BID@0800,1730 [facility] Last Admin: 07/11/18 08:08 Dose: 30 ml Aspirin (Ecotrin -) 81 mg PO DAILY [facility] Last Admin: 07/11/18 10:23 Dose: 81 mg Atorvastatin Calcium (Lipitor -) 20 mg PO HS [facility] Last Admin: 07/10/18 22:12 Dose: 20 mg Carbidopa/Levodopa (Sinemet 25/100 -) 1 each PO TID [facility] Last Admin: 07/11/18 06:21 Dose: 1 each Escitalopram Oxalate (Lexapro -) 10 mg PO DAILY [facility] Last Admin: 07/11/18 10:24 Dose: 10 mg Fludrocortisone Acetate (Florinef -) 0.1 mg PO DAILY [facility] Last Admin: 07/11/18 10:23 Dose: 0.1 mg Furosemide (Lasix -) 40 mg PO DAILY [facility] Last Admin: 07/11/18 11:10 Dose: 40 mg Gabapentin (Neurontin -) 100 mg PO TID [facility] Last Admin: 07/11/18 06:21 Dose: 100 mg Heparin Sodium (Porcine) (Heparin -) 5,000 unit SQ BID [facility] Last Admin: 07/11/18 10:24 Dose: 5,000 unit Meropenem 1 gm/ Dextrose 100 mls @ 200 mls/hr IVPB Q8H-IV [facility] Last Admin: 07/11/18 10:24 Dose: 200 mls/hr Insulin Aspart (Novolog Vial Sliding Scale -) 1 vial SQ [facility]; Protocol Last Admin: 07/11/18 06:21 Dose: Not Given Insulin Detemir (Levemir Vial) 35 units SQ HS [facility] Last Admin: 07/10/18 22:11 Dose: 35 units Lidocaine (Lidoderm Patch -) 1 patch TP DAILY [facility] Last Admin: 07/11/18 10:24 Dose: 1 patch Losartan Potassium (Cozaar -) 100 mg PO DAILY [facility] Last Admin: 07/10/18 09:29 Dose: 100 mg Melatonin (Melatonin) 5 mg PO HS PRN PRN Reason: INSOMNIA Last Admin: 07/10/18 22:13 Dose: 5 mg Miscellaneous (Lidoderm Patch Removal) 1 each MC DAILY@2200 [facility] Last Admin: 07/10/18 22:11 Dose: 1 each Multi-Ingredient Ointment (Zinc Oxide) 1 applic TP BID [facility] Last Admin: 07/11/18 10:25 Dose: 1 applic Nadolol (Corgard -) 20 mg PO DAILY [facility] Last Admin: 07/11/18 11:10 Dose: 20 mg Nortriptyline HCl (Pamelor -) 25 mg PO HS [facility] Last Admin: 07/10/18 22:12 Dose: 25 mg Nystatin (Mycostatin Cream -) 1 applic TP BID [facility] Last Admin: 07/11/18 10:25 Dose: 1 applic Nystatin (Nystatin Oral Suspension -) 500,000 units PO Q6HPO [facility] Last Admin: 07/11/18 06:21 Dose: 500,000 units Pantoprazole Sodium (Protonix -) 40 mg PO DAILY [facility] Last Admin: 07/11/18 10:25 Dose: 40 mg Prednisone (Deltasone -) 20 mg PO DAILY [facility] Last Admin: 07/11/18 10:23 Dose: 20 mg - Objective Vital Signs: Vital Signs Temperature 97.6 F 07/11/18 05:00 Pulse Rate 94 H 07/11/18 09:29 Respiratory Rate 20 07/11/18 09:29 Blood Pressure 120/60 07/11/18 11:09 O2 Sat by Pulse Oximetry (%) 96 07/10/18 21:00 Constitutional: Yes: Well Nourished, No Distress, Calm Cardiovascular: Yes: Regular Rate and Rhythm Respiratory: Yes: Regular Gastrointestinal: Yes: WNL Genitourinary: Yes: WNL Musculoskeletal: Yes: WNL Extremities: Yes: WNL Edema: No Peripheral Pulses WNL: Yes Neurological: Yes: Alert, Pre-Existing Deficit Psychiatric: Yes: Alert Labs: CBC, BMP 07/09/18 06:15 07/09/18 06:15 Problem List - Problems (1) Pneumonia Assessment/Plan: -repeat sputum culture shows same; Microbiology 07/08/18 18:45 Sputum - Expectorated Gram Stain - Final 07/08/18 18:45 Sputum - Expectorated Sputum Culture - Final Pseudomonas Aeruginosa 07/08/18 18:29 Blood - Peripheral Venous Blood Culture - Preliminary NO GROWTH OBTAINED AFTER 72 HOURS, INCUBATION TO CONTINUE FOR 2 DAYS. 07/08/18 18:27 Blood - Peripheral Venous Blood Culture - Preliminary NO GROWTH OBTAINED AFTER 72 HOURS, INCUBATION TO CONTINUE FOR 2 DAYS. 07/08/18 20:30 Urine - Urine Clean Catch Urine Culture - Final NO GROWTH OBTAINED 07/08/18 20:30 Urine For Antigen Detection Legionella Antigen - Final 07/08/18 20:30 Urine For Antigen Detection Streptococcus pneumoniae Antigen (M - Final -ID on board -IV abx -leukocytosis improving -labs today and daily -afebrile Code(s): J18.9 - PNEUMONIA, UNSPECIFIED ORGANISM (2) Fracture of ramus of right pubis with routine healing Assessment/Plan: -Inferior and superior -Seen by orthopedic surgery -conservative measurement -pain management -Physical therapy Code(s): S32.591D - OTH FRACTURE OF RIGHT PUBIS, SUBS FOR FX W ROUTN HEAL (3) Lumbar canal stenosis Assessment/Plan: -Seen by Neurosurgery -Physical therapy -Abdominal binder -Pain management Code(s): M48.061 - SPINAL STENOSIS, LUMBAR REGION WITHOUT NEUROGENIC IRVIN (4) Compression fracture of L4 vertebra Assessment/Plan: -chronic -Had vertoblasty -Seen by NS -Abdominal binder -Pain management -Physical therapy Code(s): S32.040A - WEDGE COMPRESSION FRACTURE OF FOURTH LUMBAR VERTEBRA, INIT Assessment/Plan see problem list
[2018-07-11] MEDS ORDERED: INSULIN (NOVOLOG) ASPART 100 UNITS/ML 10ML VIAL ONE ×2 (11:31→17:12)
[2018-07-11] MEDS: LOSARTAN POTASSIUM 50 MG TABLET (FP) PO SCH (11:37)
--- NOTE | 2018-07-11 16:22 | CONSULT ---
Consult - text type - Consultation Consultation Note: Patient known to me from May 2018 admission with new osteoporotic spine fracture. Patient presents with increased pain and is not wearing TLSO brace. - consider Abdominal binder to address mechanical pain - GI/DVT prophylaxis - will follow
--- NOTE | 2018-07-11 16:46 | PN ---
Progress Note (short form) - Note Progress Note: patient known to our service from multiple admissions-history of pulmonary MAC, liver cirrhosis, diabetes chart reviewed treated in 2015 for MAC just admitted 06/28 to 07/07 with worsening cough, hemoptysis, hypoxia sputum grew pseudomonas and she was discharged back to the [place] for 10 days 07/07 she was readmitted the next day with hypoxia she was on steroids antibiotics were changed to meropenem she remains dyspneic with productive cough, no hemoptysis she was noted to have leg/pelvic pain and found to have a nondisplaced pelvic fracture- she denies falls cxray with increased alveolar pattern 07/08 no fevers meds reviewed pmh reviewed allergies reviewed Vital Signs Period Temp Pulse Resp BP Sys/Donovan Pulse Ox Last 24 Hr 97.6 F-98.3 F 83-106 20 110-122/54-70 94-96 frail elderly female cor-rrr llungs crackles throughout abd soft,nt ext no edema CBC, BMP 07/09/18 06:15 07/09/18 06:15 Microbiology 07/08/18 18:45 Sputum - Expectorated Gram Stain - Final 07/08/18 18:45 Sputum - Expectorated Sputum Culture - Preliminary Pseudomonas Species 07/08/18 18:29 Blood - Peripheral Venous Blood Culture - Preliminary NO GROWTH OBTAINED AFTER 48 HOURS, INCUBATION TO CONTINUE FOR 3 DAYS. 07/08/18 18:27 Blood - Peripheral Venous Blood Culture - Preliminary NO GROWTH OBTAINED AFTER 48 HOURS, INCUBATION TO CONTINUE FOR 3 DAYS. 07/08/18 20:30 Urine - Urine Clean Catch Urine Culture - Final NO GROWTH OBTAINED 07/08/18 20:30 Urine For Antigen Detection Legionella Antigen - Final 07/08/18 20:30 Urine For Antigen Detection Streptococcus pneumoniae Antigen (M - Final Current Medications Acetaminophen (Tylenol -) 650 mg PO Q6H PRN PRN Reason: FEVER Last Admin: 07/10/18 22:13 Dose: 650 mg Albuterol/Ipratropium (Duoneb -) 1 amp NEB Q6H PRN PRN Reason: SHORTNESS OF BREATH Albuterol/Ipratropium (Duoneb -) 1 amp NEB RTID [facility] Last Admin: 07/11/18 14:51 Dose: 1 amp Amino Acids (Prosource No Carb Liquid Pkt) 30 ml PO BID@0800,1730 [facility] Last Admin: 07/11/18 08:08 Dose: 30 ml Aspirin (Ecotrin -) 81 mg PO DAILY [facility] Last Admin: 07/11/18 10:23 Dose: 81 mg Atorvastatin Calcium (Lipitor -) 20 mg PO HS [facility] Last Admin: 07/10/18 22:12 Dose: 20 mg Carbidopa/Levodopa (Sinemet 25/100 -) 1 each PO TID [facility] Last Admin: 07/11/18 14:27 Dose: 1 each Escitalopram Oxalate (Lexapro -) 10 mg PO DAILY [facility] Last Admin: 07/11/18 10:24 Dose: 10 mg Fludrocortisone Acetate (Florinef -) 0.1 mg PO DAILY [facility] Last Admin: 07/11/18 10:23 Dose: 0.1 mg Furosemide (Lasix -) 40 mg PO DAILY [facility] Last Admin: 07/11/18 11:10 Dose: 40 mg Gabapentin (Neurontin -) 100 mg PO TID [facility] Last Admin: 07/11/18 14:27 Dose: 100 mg Heparin Sodium (Porcine) (Heparin -) 5,000 unit SQ BID [facility] Last Admin: 07/11/18 10:24 Dose: 5,000 unit Meropenem 1 gm/ Dextrose 100 mls @ 200 mls/hr IVPB Q8H-IV [facility] Last Admin: 07/11/18 10:24 Dose: 200 mls/hr Insulin Aspart (Novolog Vial Sliding Scale -) 1 vial SQ [facility]; Protocol Last Admin: 07/11/18 11:39 Dose: 6 units Insulin Detemir (Levemir Vial) 35 units SQ HS [facility] Last Admin: 07/10/18 22:11 Dose: 35 units Lidocaine (Lidoderm Patch -) 1 patch TP DAILY [facility] Last Admin: 07/11/18 10:24 Dose: 1 patch Losartan Potassium (Cozaar -) 100 mg PO DAILY [facility] Last Admin: 07/11/18 11:37 Dose: 100 mg Melatonin (Melatonin) 5 mg PO HS PRN PRN Reason: INSOMNIA Last Admin: 07/10/18 22:13 Dose: 5 mg Miscellaneous (Lidoderm Patch Removal) 1 each MC DAILY@2200 [facility] Last Admin: 07/10/18 22:11 Dose: 1 each Multi-Ingredient Ointment (Zinc Oxide) 1 applic TP BID [facility] Last Admin: 07/11/18 10:25 Dose: 1 applic Nadolol (Corgard -) 20 mg PO DAILY [facility] Last Admin: 07/11/18 11:10 Dose: 20 mg Nortriptyline HCl (Pamelor -) 25 mg PO HS [facility] Last Admin: 07/10/18 22:12 Dose: 25 mg Nystatin (Mycostatin Cream -) 1 applic TP BID [facility] Last Admin: 07/11/18 10:25 Dose: 1 applic Nystatin (Nystatin Oral Suspension -) 500,000 units PO Q6HPO [facility] Last Admin: 07/11/18 12:35 Dose: 500,000 units Pantoprazole Sodium (Protonix -) 40 mg PO DAILY [facility] Last Admin: 07/11/18 10:25 Dose: 40 mg Prednisone (Deltasone -) 20 mg PO DAILY [facility] Last Admin: 07/11/18 10:23 Dose: 20 mg a/p ?superimposed CHF-would check echo, repeat cxray pseudomonas pneumonia- continue meropenem history of pulmonary MAC-plan to refer to specialty clinic for mac sputum culture sensitivities and f/u after discharge history of DM multiple antibiotic allergies send sputum fungal culture, aspergillus galactomannam, fungitell
[2018-07-11] MEDS: INSULIN (LEVEMIR) 100 UNITS/ML UNITS SQ SCH (21:47)
[2018-07-11] MEDS: ATORVASTATIN CA 20 MG TABLET (FP) PO SCH (21:47)
[2018-07-11] MEDS: LIDOCAINE PATCH REMOVAL MC SCH (21:47)
[2018-07-11] MEDS: NORTRIPTYLINE HCL 25 MG CAPSULE PO SCH (21:48)
[2018-07-12] MEDS: NYSTATIN 500,000 UNITS/5 ML SUSPENSION PO SCH ×4 (00:11→17:56)
[2018-07-12] MEDS ORDERED: PT OWN MED DRAWER 7, Y5N ONE ×3 (02:35→17:33)
[2018-07-12] MEDS: MEROPENEM 1 GM in DEXTROSE 5%-WATER 100 ML IVPB SCH ×3 (02:41→17:55)
[2018-07-12] MEDS: INSULIN SLIDING SCALE (NOVOLOG) 1 VIAL SQ SCH ×4 (06:24→21:59)
[2018-07-12] MEDS: GABAPENTIN 100 MG CAPSULE (FP) PO SCH ×3 (06:25→21:59)
[2018-07-12] MEDS: CARBIDOPA/LEVODOPA 25/100 TABLET (FP) PO SCH ×3 (06:25→21:59)
[2018-07-12] MEDS: ALBUTEROL SO4 2.5/IPRATROPIUM 0.5 INH SOL 3 ML VIAL.NEB. NEB SCH ×3 (07:50→21:05)
[2018-07-12] MEDS: ACETAMINOPHEN 325 MG TABLET (FP) PO PRN (08:53)
[2018-07-12] MEDS: AMINO ACIDS/PROTEIN HYDROLYS 30 ML LIQUID.PKT PO SCH ×2 (08:53→17:55)
--- NOTE | 2018-07-12 11:36 | PN ---
Progress Note, Physician Chief Complaint: Respiratory distress History of Present Illness: Known to Dr Song's service Previous sputum culture showed Pseudomnas Aerugenosa - Current Medication List Current Medications: Active Medications Acetaminophen (Tylenol -) 650 mg PO Q6H PRN PRN Reason: FEVER Last Admin: 07/12/18 08:53 Dose: 650 mg Albuterol/Ipratropium (Duoneb -) 1 amp NEB Q6H PRN PRN Reason: SHORTNESS OF BREATH Albuterol/Ipratropium (Duoneb -) 1 amp NEB RTID [facility] Last Admin: 07/12/18 07:50 Dose: 1 amp Amino Acids (Prosource No Carb Liquid Pkt) 30 ml PO BID@0800,1730 [facility] Last Admin: 07/12/18 08:53 Dose: 30 ml Aspirin (Ecotrin -) 81 mg PO DAILY [facility] Last Admin: 07/11/18 10:23 Dose: 81 mg Atorvastatin Calcium (Lipitor -) 20 mg PO HS [facility] Last Admin: 07/11/18 21:47 Dose: 20 mg Carbidopa/Levodopa (Sinemet 25/100 -) 1 each PO TID [facility] Last Admin: 07/12/18 06:25 Dose: 1 each Escitalopram Oxalate (Lexapro -) 10 mg PO DAILY [facility] Last Admin: 07/11/18 10:24 Dose: 10 mg Fludrocortisone Acetate (Florinef -) 0.1 mg PO DAILY [facility] Last Admin: 07/11/18 10:23 Dose: 0.1 mg Furosemide (Lasix -) 40 mg PO DAILY [facility] Last Admin: 07/11/18 11:10 Dose: 40 mg Gabapentin (Neurontin -) 100 mg PO TID [facility] Last Admin: 07/12/18 06:25 Dose: 100 mg Heparin Sodium (Porcine) (Heparin -) 5,000 unit SQ BID [facility] Last Admin: 07/11/18 21:46 Dose: 5,000 unit Meropenem 1 gm/ Dextrose 100 mls @ 200 mls/hr IVPB Q8H-IV [facility] Last Admin: 07/12/18 02:41 Dose: 200 mls/hr Insulin Aspart (Novolog Vial Sliding Scale -) 1 vial SQ [facility]; Protocol Last Admin: 07/12/18 06:24 Dose: 4 units Insulin Detemir (Levemir Vial) 35 units SQ HS [facility] Last Admin: 07/11/18 21:47 Dose: 35 units Lidocaine (Lidoderm Patch -) 1 patch TP DAILY [facility] Last Admin: 07/11/18 10:24 Dose: 1 patch Losartan Potassium (Cozaar -) 100 mg PO DAILY [facility] Last Admin: 07/11/18 11:37 Dose: 100 mg Melatonin (Melatonin) 5 mg PO HS PRN PRN Reason: INSOMNIA Last Admin: 07/10/18 22:13 Dose: 5 mg Miscellaneous (Lidoderm Patch Removal) 1 each MC DAILY@2200 [facility] Last Admin: 07/11/18 21:47 Dose: 1 each Multi-Ingredient Ointment (Zinc Oxide) 1 applic TP BID [facility] Last Admin: 07/11/18 21:48 Dose: 1 applic Nadolol (Corgard -) 20 mg PO DAILY [facility] Last Admin: 07/11/18 11:10 Dose: 20 mg Nortriptyline HCl (Pamelor -) 25 mg PO HS [facility] Last Admin: 07/11/18 21:48 Dose: 25 mg Nystatin (Mycostatin Cream -) 1 applic TP BID [facility] Last Admin: 07/11/18 21:47 Dose: 1 applic Nystatin (Nystatin Oral Suspension -) 500,000 units PO Q6HPO [facility] Last Admin: 07/12/18 06:28 Dose: 500,000 units Pantoprazole Sodium (Protonix -) 40 mg PO DAILY [facility] Last Admin: 07/11/18 10:25 Dose: 40 mg Prednisone (Deltasone -) 20 mg PO DAILY [facility] Last Admin: 07/11/18 10:23 Dose: 20 mg - Objective Vital Signs: Vital Signs Temperature 97.5 F L 07/12/18 06:00 Pulse Rate 82 07/12/18 06:00 Respiratory Rate 20 07/12/18 06:00 Blood Pressure 131/76 07/12/18 06:00 O2 Sat by Pulse Oximetry (%) 94 L 07/11/18 09:00 Constitutional: Yes: Well Nourished, No Distress, Calm Cardiovascular: Yes: Regular Rate and Rhythm Respiratory: Yes: On Nasal O2, SOB on Exertion, Wheezes (diffuse) Musculoskeletal: Yes: Muscle Weakness Extremities: Yes: WNL Edema: No Peripheral Pulses WNL: Yes Neurological: Yes: Alert, Oriented Psychiatric: Yes: Alert, Oriented Labs: CBC, BMP 07/09/18 06:15 07/09/18 06:15 Problem List - Problems (1) Pneumonia Assessment/Plan: -repeat sputum culture shows same; Microbiology 07/08/18 18:45 Sputum - Expectorated Gram Stain - Final 07/08/18 18:45 Sputum - Expectorated Sputum Culture - Final Pseudomonas Aeruginosa 07/08/18 18:29 Blood - Peripheral Venous Blood Culture - Preliminary NO GROWTH OBTAINED AFTER 72 HOURS, INCUBATION TO CONTINUE FOR 2 DAYS. 07/08/18 18:27 Blood - Peripheral Venous Blood Culture - Preliminary NO GROWTH OBTAINED AFTER 72 HOURS, INCUBATION TO CONTINUE FOR 2 DAYS. 07/08/18 20:30 Urine - Urine Clean Catch Urine Culture - Final NO GROWTH OBTAINED 07/08/18 20:30 Urine For Antigen Detection Legionella Antigen - Final 07/08/18 20:30 Urine For Antigen Detection Streptococcus pneumoniae Antigen (M - Final -ID on board -IV abx -leukocytosis improving -labs today and daily -afebrile Code(s): J18.9 - PNEUMONIA, UNSPECIFIED ORGANISM (2) Diabetes Assessment/Plan: -BGM AC HS -Insulin: levemir+ novolog -Also increase secondary to steroids -Increase levemir from 35 to 37 U -Diabetic diet -Last A1c 7.5 Code(s): E11.9 - TYPE 2 DIABETES MELLITUS WITHOUT COMPLICATIONS Qualifiers: Diabetes mellitus type: type 2 (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 -Seen by NS -Abdominal binder -Pain management -Physical therapy Code(s): S32.040A - WEDGE COMPRESSION FRACTURE OF FOURTH LUMBAR VERTEBRA, INIT (4) Fracture of ramus of right pubis with routine healing Assessment/Plan: -Inferior and superior -Seen by orthopedic surgery -conservative measurement -pain management -Physical therapy Code(s): S32.591D - OTH FRACTURE OF RIGHT PUBIS, SUBS FOR FX W ROUTN HEAL (5) Lumbar canal stenosis Assessment/Plan: -Seen by Neurosurgery -Physical therapy -Abdominal binder -Pain management Code(s): M48.061 - SPINAL STENOSIS, LUMBAR REGION WITHOUT NEUROGENIC IRVIN (6) Anxiety Assessment/Plan: -Seen by Psychiatry -On lexapro Code(s): F41.9 - ANXIETY DISORDER, UNSPECIFIED Assessment/Plan see problem list physical therapy
[2018-07-12] MEDS: ESCITALOPRAM OXALATE 10 MG TABLET (FP) PO SCH (11:52)
[2018-07-12] MEDS: FUROSEMIDE 40 MG TABLET (FP) PO SCH (11:52)
[2018-07-12] MEDS: ASPIRIN COATED 81 MG TABLET.EC PO SCH (11:52)
[2018-07-12] MEDS: FLUDROCORTISONE ACETATE 0.1 MG TABLET (FP) PO SCH (11:53)
[2018-07-12] MEDS: NADOLOL 20 MG TABLET (FP) PO SCH (11:54)
[2018-07-12] MEDS: ZINC OXIDE 20% TOPICAL OINTMENT 30 GM TUBE TP SCH ×2 (11:56→21:59)
[2018-07-12] MEDS: NYSTATIN 100,000 UNIT/GM TOPICAL CREAM 15 GM TUBE TP SCH ×2 (11:56→21:57)
[2018-07-12] MEDS: LOSARTAN POTASSIUM 50 MG TABLET (FP) PO SCH (12:08)
[2018-07-12] MEDS: PANTOPRAZOLE 40 MG TABLET (FP) PO SCH (12:08)
[2018-07-12] MEDS: predniSONE 20 MG TABLET (UD) PO SCH (12:09)
[2018-07-12] MEDS: HEPARIN NA (PORCINE) 5,000 UNITS/ML 1ML VIAL SQ SCH ×2 (12:09→21:58)
[2018-07-12] MEDS: LIDOCAINE 5% TOPICAL PATCH TP SCH (12:11)
--- NOTE | 2018-07-12 12:38 | CON.PSY ---
Psychiatry Consult Chief Complaint: 77 year old female a [facility] . history of severe cardiac problems, cva, Parkinsons disease , [id number] a nd anxirty. Pt seen for psych eval , on Pamelor and lexapro. Symptoms: reports: Anxiety - Previous Psychiatric Treatment Outpatient: None Inpatient: None - Previous Substance Abuse Treatment Outpatient: None Inpatient: None - Reason for Previous Treatment Reason for Previous Treatment: Major Depression - Current Medications Current Medications: Active Medications Acetaminophen (Tylenol -) 650 mg PO Q6H PRN PRN Reason: FEVER Last Admin: 07/12/18 08:53 Dose: 650 mg Albuterol/Ipratropium (Duoneb -) 1 amp NEB Q6H PRN PRN Reason: SHORTNESS OF BREATH Albuterol/Ipratropium (Duoneb -) 1 amp NEB RTID [facility] Last Admin: 07/12/18 07:50 Dose: 1 amp Amino Acids (Prosource No Carb Liquid Pkt) 30 ml PO BID@0800,1730 [facility] Last Admin: 07/12/18 08:53 Dose: 30 ml Aspirin (Ecotrin -) 81 mg PO DAILY [facility] Last Admin: 07/12/18 11:52 Dose: 81 mg Atorvastatin Calcium (Lipitor -) 20 mg PO HS [facility] Last Admin: 07/11/18 21:47 Dose: 20 mg Carbidopa/Levodopa (Sinemet 25/100 -) 1 each PO TID [facility] Last Admin: 07/12/18 06:25 Dose: 1 each Escitalopram Oxalate (Lexapro -) 10 mg PO DAILY [facility] Last Admin: 07/12/18 11:52 Dose: 10 mg Fludrocortisone Acetate (Florinef -) 0.1 mg PO DAILY [facility] Last Admin: 07/12/18 11:53 Dose: 0.1 mg Furosemide (Lasix -) 40 mg PO DAILY [facility] Last Admin: 07/12/18 11:52 Dose: 40 mg Gabapentin (Neurontin -) 100 mg PO TID [facility] Last Admin: 07/12/18 06:25 Dose: 100 mg Heparin Sodium (Porcine) (Heparin -) 5,000 unit SQ BID [facility] Last Admin: 07/12/18 12:09 Dose: 5,000 unit Meropenem 1 gm/ Dextrose 100 mls @ 200 mls/hr IVPB Q8H-IV [facility] Last Admin: 07/12/18 11:55 Dose: 200 mls/hr Insulin Aspart (Novolog Vial Sliding Scale -) 1 vial SQ [facility]; Protocol Last Admin: 07/12/18 12:18 Dose: 6 units Insulin Detemir (Levemir Vial) 37 units SQ HS [facility] Lidocaine (Lidoderm Patch -) 1 patch TP DAILY [facility] Last Admin: 07/12/18 12:11 Dose: 1 patch Losartan Potassium (Cozaar -) 100 mg PO DAILY [facility] Last Admin: 07/12/18 12:08 Dose: 100 mg Melatonin (Melatonin) 5 mg PO HS PRN PRN Reason: INSOMNIA Last Admin: 07/10/18 22:13 Dose: 5 mg Miscellaneous (Lidoderm Patch Removal) 1 each MC DAILY@2200 [facility] Last Admin: 07/11/18 21:47 Dose: 1 each Multi-Ingredient Ointment (Zinc Oxide) 1 applic TP BID [facility] Last Admin: 07/12/18 11:56 Dose: 1 applic Nadolol (Corgard -) 20 mg PO DAILY [facility] Last Admin: 07/12/18 11:54 Dose: 20 mg Nortriptyline HCl (Pamelor -) 25 mg PO HS [facility] Last Admin: 07/11/18 21:48 Dose: 25 mg Nystatin (Mycostatin Cream -) 1 applic TP BID [facility] Last Admin: 07/12/18 11:56 Dose: 1 applic Nystatin (Nystatin Oral Suspension -) 500,000 units PO Q6HPO [facility] Last Admin: 07/12/18 12:08 Dose: 500,000 units Pantoprazole Sodium (Protonix -) 40 mg PO DAILY [facility] Last Admin: 07/12/18 12:08 Dose: 40 mg Prednisone (Deltasone -) 20 mg PO DAILY [facility] Last Admin: 07/12/18 12:09 Dose: 20 mg - Allergies Allergies: Allergies Allergy/AdvReac Type Severity Reaction Status Date / Time levofloxacin [From Levaquin] Allergy Intermediate Rash Verified 07/08/18 12:11 Penicillins Allergy Rash Verified 07/08/18 12:11 sulfamethoxazole AdvReac Intermediate Verified 07/08/18 12:11 [From Bactrim] trimethoprim [From Bactrim] AdvReac Intermediate Verified 07/08/18 12:11 - Current Living Status Usual Living Arrangement: Correction - Current Mental Status Evaluation Appearance: Well Groomed Attitude: Cooperative - Affect Affect: Flat Appropriateness: Appropriate to Content - Mood Mood: Angry - Speech/Language Expressive: Coherent, Delayed - Psychomotor Activity Psychomotor Activity: Normal, Slowed - Thought Process Thought Process: Intact - Thought Content Hallucinations: Absent Delusions: Absent - Self Perception Self Perception: No Impairment - Cognition Attention: Alert Orientation: Time Memory, Immediate Recall: Impaired Memory, Short Term: 2/3 Memory, Remote with Promptin/3 - Concentration Serial Sevens Intact: No Simple Calculations Intact: No - Abstraction Proverb Interpretation: Impaired Judgement: Intact - Insight Insight: Impaired - Impulse Control Impulse Control: Good Control - Suicidal Ideation Suicidal Ideation: No - Homicidal Ideation Homicidal Ideation: No Assessment/Plan 1 Continue with Lexapro 10 mg po od. 2) d/c Pamelor
--- NOTE | 2018-07-12 13:44 | PN ---
Progress Note, Physician History of Present Illness: PULMONARY ALERT,STILL C/O SOB,COUGH - Current Medication List Current Medications: Active Medications Acetaminophen (Tylenol -) 650 mg PO Q6H PRN PRN Reason: FEVER Last Admin: 07/12/18 08:53 Dose: 650 mg Albuterol/Ipratropium (Duoneb -) 1 amp NEB Q6H PRN PRN Reason: SHORTNESS OF BREATH Albuterol/Ipratropium (Duoneb -) 1 amp NEB RTID [facility] Last Admin: 07/12/18 07:50 Dose: 1 amp Amino Acids (Prosource No Carb Liquid Pkt) 30 ml PO BID@0800,1730 [facility] Last Admin: 07/12/18 08:53 Dose: 30 ml Aspirin (Ecotrin -) 81 mg PO DAILY [facility] Last Admin: 07/12/18 11:52 Dose: 81 mg Atorvastatin Calcium (Lipitor -) 20 mg PO HS [facility] Last Admin: 07/11/18 21:47 Dose: 20 mg Carbidopa/Levodopa (Sinemet 25/100 -) 1 each PO TID [facility] Last Admin: 07/12/18 06:25 Dose: 1 each Escitalopram Oxalate (Lexapro -) 10 mg PO DAILY [facility] Last Admin: 07/12/18 11:52 Dose: 10 mg Fludrocortisone Acetate (Florinef -) 0.1 mg PO DAILY [facility] Last Admin: 07/12/18 11:53 Dose: 0.1 mg Furosemide (Lasix -) 40 mg PO DAILY [facility] Last Admin: 07/12/18 11:52 Dose: 40 mg Gabapentin (Neurontin -) 100 mg PO TID [facility] Last Admin: 07/12/18 06:25 Dose: 100 mg Heparin Sodium (Porcine) (Heparin -) 5,000 unit SQ BID [facility] Last Admin: 07/12/18 12:09 Dose: 5,000 unit Meropenem 1 gm/ Dextrose 100 mls @ 200 mls/hr IVPB Q8H-IV [facility] Last Admin: 07/12/18 11:55 Dose: 200 mls/hr Insulin Aspart (Novolog Vial Sliding Scale -) 1 vial SQ ACHS [facility]; Protocol Last Admin: 07/12/18 12:18 Dose: 6 units Insulin Detemir (Levemir Vial) 37 units SQ [facility] Lidocaine (Lidoderm Patch -) 1 patch TP DAILY [facility] Last Admin: 07/12/18 12:11 Dose: 1 patch Losartan Potassium (Cozaar -) 100 mg PO DAILY [facility] Last Admin: 07/12/18 12:08 Dose: 100 mg Melatonin (Melatonin) 5 mg PO HS PRN PRN Reason: INSOMNIA Last Admin: 07/10/18 22:13 Dose: 5 mg Miscellaneous (Lidoderm Patch Removal) 1 each MC DAILY@2200 [facility] Last Admin: 07/11/18 21:47 Dose: 1 each Multi-Ingredient Ointment (Zinc Oxide) 1 applic TP BID [facility] Last Admin: 07/12/18 11:56 Dose: 1 applic Nadolol (Corgard -) 20 mg PO DAILY [facility] Last Admin: 07/12/18 11:54 Dose: 20 mg Nystatin (Mycostatin Cream -) 1 applic TP BID [facility] Last Admin: 07/12/18 11:56 Dose: 1 applic Nystatin (Nystatin Oral Suspension -) 500,000 units PO Q6HPO [facility] Last Admin: 07/12/18 12:08 Dose: 500,000 units Pantoprazole Sodium (Protonix -) 40 mg PO DAILY [facility] Last Admin: 07/12/18 12:08 Dose: 40 mg Prednisone (Deltasone -) 20 mg PO DAILY [facility] Last Admin: 07/12/18 12:09 Dose: 20 mg - Objective Vital Signs: Vital Signs Temperature 97.5 F L 07/12/18 06:00 Pulse Rate 82 07/12/18 06:00 Respiratory Rate 20 07/12/18 06:00 Blood Pressure 131/76 07/12/18 06:00 O2 Sat by Pulse Oximetry (%) 94 L 07/11/18 09:00 Constitutional: Yes: Well Nourished, Calm Eyes: Yes: WNL HENT: Yes: WNL Neck: Yes: WNL Cardiovascular: Yes: Regular Rate and Rhythm, S1, S2 Respiratory: Yes: Rales (BILATERAL RALES AND RHONCHI), Rhonchi Gastrointestinal: Yes: Normal Bowel Sounds, Soft Extremities: Yes: WNL Edema: No Labs: CBC, BMP 07/09/18 06:15 07/09/18 06:15 Assessment/Plan Problem List - Problems (1) Pneumonia Code(s): J18.9 - PNEUMONIA, UNSPECIFIED ORGANISM (2) Angina pectoris Code(s): I20.9 - ANGINA PECTORIS, UNSPECIFIED (3) Anxiety Code(s): F41.9 - ANXIETY DISORDER, UNSPECIFIED (4) Asthma Code(s): J45.909 - UNSPECIFIED ASTHMA, UNCOMPLICATED Qualifiers: Asthma severity: unspecified severity Asthma complication type: uncomplicated (5) Back pain Code(s): M54.9 - DORSALGIA, UNSPECIFIED (6) Breast cancer Code(s): C50.919 - MALIGNANT NEOPLASM OF UNSP SITE OF UNSPECIFIED FEMALE BREAST (7) Cirrhosis of liver Code(s): K74.60 - UNSPECIFIED CIRRHOSIS OF LIVER Qualifiers: Hepatic cirrhosis type: alcoholic cirrhosis Ascites presence: with ascites Qualified Code(s): K70.31 - Alcoholic cirrhosis of liver with ascites (8) Coronary artery disease Code(s): I25.10 - ATHSCL HEART DISEASE OF [place] CORONARY ARTERY W/O ANG PCTRS Qualifiers: Coronary Disease-Associated Artery/Lesion type: [place] artery [place] vs. transplanted heart: [place] heart Associated angina: without angina Qualified Code(s): I25.10 - Atherosclerotic heart disease of [place] coronary artery without angina pectoris (9) Cough Code(s): R05 - COUGH (10) Depression Code(s): F32.9 - MAJOR DEPRESSIVE DISORDER, SINGLE EPISODE, UNSPECIFIED (11) Diabetes Code(s): E11.9 - TYPE 2 DIABETES MELLITUS WITHOUT COMPLICATIONS Qualifiers: Diabetes mellitus type: type 2 (12) Elevated lactic acid level Code(s): R79.89 - OTHER SPECIFIED ABNORMAL FINDINGS OF BLOOD CHEMISTRY (13) Hx of antibiotic allergy Code(s): Z88.1 - ALLERGY STATUS TO OTHER ANTIBIOTIC AGENTS STATUS (14) Hyperlipidemia Code(s): E78.5 - HYPERLIPIDEMIA, UNSPECIFIED Qualifiers: Hyperlipidemia type: pure hypercholesterolemia Qualified Code(s): E78.00 - Pure hypercholesterolemia, unspecified; E78.0 - Pure hypercholesterolemia (15) Hypertension Code(s): I10 - ESSENTIAL (PRIMARY) HYPERTENSION (16) Interstitial lung disease Code(s): J84.9 - INTERSTITIAL PULMONARY DISEASE, UNSPECIFIED (17) Lactic acidosis Code(s): E87.2 - ACIDOSIS (18) Pneumonia Code(s): J18.9 - PNEUMONIA, UNSPECIFIED ORGANISM Qualifiers: (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 Assessment/Plan ABX per ID O2 as needed BD TX: standing and PRN VTE prophylaxis Lasix D/W ID: no treatment for [place]UC[place] at this time DR WESLEY Problem List - Problems (1) Pneumonia Code(s): J18.9 - PNEUMONIA, UNSPECIFIED ORGANISM (2) Angina pectoris Code(s): I20.9 - ANGINA PECTORIS, UNSPECIFIED (3) Anxiety Code(s): F41.9 - ANXIETY DISORDER, UNSPECIFIED (4) Asthma Code(s): J45.909 - UNSPECIFIED ASTHMA, UNCOMPLICATED Qualifiers: Asthma severity: unspecified severity Asthma complication type: uncomplicated (5) Back pain Code(s): M54.9 - DORSALGIA, UNSPECIFIED (6) Breast cancer Code(s): C50.919 - MALIGNANT NEOPLASM OF UNSP SITE OF UNSPECIFIED FEMALE BREAST (7) Cirrhosis of liver Code(s): K74.60 - UNSPECIFIED CIRRHOSIS OF LIVER Qualifiers: Hepatic cirrhosis type: alcoholic cirrhosis Ascites presence: with ascites Qualified Code(s): K70.31 - Alcoholic cirrhosis of liver with ascites (8) Coronary artery disease Code(s): I25.10 - ATHSCL HEART DISEASE OF [place] CORONARY ARTERY W/O ANG PCTRS Qualifiers: Coronary Disease-Associated Artery/Lesion type: [place] artery [place] vs. transplanted heart: [place] heart Associated angina: without angina Qualified Code(s): I25.10 - Atherosclerotic heart disease of [place] coronary artery without angina pectoris (9) Cough Code(s): R05 - COUGH (10) Depression Code(s): F32.9 - MAJOR DEPRESSIVE DISORDER, SINGLE EPISODE, UNSPECIFIED (11) Diabetes Code(s): E11.9 - TYPE 2 DIABETES MELLITUS WITHOUT COMPLICATIONS Qualifiers: Diabetes mellitus type: type 2 (12) Elevated lactic acid level Code(s): R79.89 - OTHER SPECIFIED ABNORMAL FINDINGS OF BLOOD CHEMISTRY (13) Hx of antibiotic allergy Code(s): Z88.1 - ALLERGY STATUS TO OTHER ANTIBIOTIC AGENTS STATUS (14) Hyperlipidemia Code(s): E78.5 - HYPERLIPIDEMIA, UNSPECIFIED Qualifiers: Hyperlipidemia type: pure hypercholesterolemia Qualified Code(s): E78.00 - Pure hypercholesterolemia, unspecified; E78.0 - Pure hypercholesterolemia (15) Hypertension Code(s): I10 - ESSENTIAL (PRIMARY) HYPERTENSION (16) Interstitial lung disease Code(s): J84.9 - INTERSTITIAL PULMONARY DISEASE, UNSPECIFIED (17) Lactic acidosis Code(s): E87.2 - ACIDOSIS (18) Pneumonia Code(s): J18.9 - PNEUMONIA, UNSPECIFIED ORGANISM Qualifiers: (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
--- NOTE | 2018-07-12 14:00 | ECHO ---
Name: VIOLETA LEON Exam:Adult Echocardiogram Study Date: 07/12/2018 10:39 AM Age: 77 yrs Reason For Study: CHF Height: 59 in Weight: 120 lb BSA: 1.5 m2 MMode/2D Measurements & Calculations IVSd: 1.0 cm Ao root diam: 2.6 cm LVIDd: 3.7 cm LA dimension: 2.2 cm LVIDs: 2.3 cm LVPWd: 0.98 cm EDV(Teich): 58.2 ml LVOT diam: 2.0 cm ESV(Teich): 18.3 ml LAV (MOD-bp): 40.1 ml Doppler Measurements & Calculations MV E max jamie: 77.1 cm/sec Ao V2 max: 193.0 cm/sec MV A max jamie: 147.0 cm/sec Ao max P.9 mmHg MV E/A: 0.52 Ao V2 mean: 129.5 cm/sec MV dec time: 0.11 sec Ao mean P.5 mmHg Ao V2 VTI: 37.3 cm TOMER(I,D): 2.5 cm2 AI P1/2t: 566.9 msec TOMER(V,D): 2.6 cm2 AI max jamie: 354.0 cm/sec LV V1 max P.3 mmHg AI max P.2 mmHg LV V1 mean P.0 mmHg AI dec slope: 183.0 cm/sec2 LV V1 max: 168.0 cm/sec LV V1 mean: 114.0 cm/sec LV V1 VTI: 30.7 cm SV(LVOT): 93.0 ml TR max jamie: 288.0 cm/sec TR max P.5 mmHg PA V2 max: 143.0 cm/sec Med Peak E' Jamie: 7.0 cm/sec PA max P.2 mmHg Med E/e': 11.1 Lat Peak E' Jamie: 7.9 cm/sec Lat E/e': 9.7 Procedure A two-dimensional transthoracic echocardiogram with color flow and Doppler was performed. Left Ventricle The left ventricular size, thickness and function are normal. The left ventricular ejection fraction is normal. E/A reversal consistent with but not diagnostic of poor LV compliance. The left ventricular w all motion is normal. Right Ventricle The right ventricle is normal in size and function. Atria Normal left and right atrial size and function. Mitral Valve There is mild mitral valve thickening. There is no mitral valve stenosis. There is trace to mild mitr al regurgitation. Tricuspid Valve There is mild tricuspid valve thickening. There is no tricuspid stenosis. There is moderate to severe tricuspid regurgitation. Right ventricular systolic pressure is elevated at 40-50mmHg. Aortic Valve The aortic valve is normal in structure and function. No hemodynamically significant valvular aortic stenosis. Moderate aortic regurgitation. Pulmonic Valve The pulmonic valve is not well visualized. There is no pulmonic valvular stenosis. There is no pulmon ic valvular regurgitation. Great Vessels The aortic root is normal size. Pericardium/Pleura There is no pericardial effusion. Interpretation Summary The left ventricular wall motion is normal. There is trace to mild mitral regurgitation. There is moderate to severe tricuspid regurgitation. Right ventricular systolic pressure is elevated at 40-50mmHg. E/A reversal consistent with but not diagnostic of poor LV compliance The left ventricular size, thickness and function are normal The left ventricular ejection fraction is normal. Moderate aortic regurgitation. MD Zaid Moreno 07/12/2018 01:59 PM
--- NOTE | 2018-07-12 14:11 | PN ---
Progress Note (short form) - Note Progress Note: Resting comfortably NEUROSURGERY CONSULTATION - Abdominal binder as initial treatment for fracture (will reserve TLSO for failure to control pain with abdominal binder) - GI/DVT prophylaxis - OOB with Physical Therapy
[2018-07-12 18:29] LABS: BASO % 0.1 % (0-2.0); EOS % 2.7 % (0-4.5); HEMATOCRIT 33.3 % (32.4-45.2); HEMOGLOBIN 11.5 GM/dL (10.7-15.3); MCH 33.3 pg (25.7-33.7); MCHC 34.5 g/dl (32.0-36.0); MEAN CELL VOLUME 96.6 fl (80-96); MEAN PLT VOLUME 8.8 fl (7.5-11.1); MONO % 5.4 % (3.8-10.2); NEUT % 87.8 % (42.8-82.8); PLATELET COUNT 118 K/MM3 (134-434); RBC 3.44 M/mm3 (3.60-5.2); RDW 15.8 % (11.6-15.6); WHITE BLOOD COUNT 15.4 K/mm3 (4.0-10.0)
[2018-07-12 18:53] LABS: ALK PHOS 188 U/L (45-117); ANION GAP 7 MMOL/L (8-16); BILIRUBIN,TOTAL 1.2 mg/dL (0.2-1); BLOOD UREA NITROGEN 22 mg/dL (7-18); CALCIUM 8.4 mg/dL (8.5-10.1); CHLORIDE 97 mmol/L (98-107); CO2 34 mmol/L (21-32); CREATININE 0.8 mg/dL (0.55-1.3); GLUCOSE,RANDOM 295 mg/dL (74-106); POTASSIUM 4.1 mmol/L (3.5-5.1); SGOT/AST 52 U/L (15-37); SGPT/ALT 46 U/L (13-61); SODIUM 138 mmol/L (136-145); TOT PROT 6.3 g/dl (6.4-8.2)
[2018-07-12] MEDS: LIDOCAINE PATCH REMOVAL MC SCH (21:58)
[2018-07-12] MEDS: ATORVASTATIN CA 20 MG TABLET (FP) PO SCH (21:58)
[2018-07-12] MEDS: INSULIN (LEVEMIR) 100 UNITS/ML UNITS SQ SCH (21:58)
[2018-07-13] MEDS: NYSTATIN 500,000 UNITS/5 ML SUSPENSION PO SCH ×4 (00:17→17:04)
[2018-07-13] MEDS ORDERED: PT OWN MED DRAWER 7, Y5N ONE ×4 (02:41→20:56)
[2018-07-13] MEDS: MEROPENEM 1 GM in DEXTROSE 5%-WATER 100 ML IVPB SCH ×3 (02:43→17:04)
[2018-07-13] MEDS: GABAPENTIN 100 MG CAPSULE (FP) PO SCH ×3 (06:16→21:40)
[2018-07-13] MEDS: CARBIDOPA/LEVODOPA 25/100 TABLET (FP) PO SCH ×3 (06:16→21:40)
[2018-07-13] MEDS: ACETAMINOPHEN 325 MG TABLET (FP) PO PRN ×2 (06:16→17:02)
[2018-07-13] MEDS: INSULIN SLIDING SCALE (NOVOLOG) 1 VIAL SQ SCH ×4 (06:19→21:41)
[2018-07-13] MEDS: ALBUTEROL SO4 2.5/IPRATROPIUM 0.5 INH SOL 3 ML VIAL.NEB. NEB SCH ×3 (07:40→19:52)
[2018-07-13 08:00] LABS: BASO % 0.1 % (0-2.0); EOS % 3.4 % (0-4.5); HEMATOCRIT 29.7 % (32.4-45.2); HEMOGLOBIN 10.2 GM/dL (10.7-15.3); LYMPH % 9.3 % (8-40); MCH 32.8 pg (25.7-33.7); MCHC 34.4 g/dl (32.0-36.0); MEAN CELL VOLUME 95.4 fl (80-96); MEAN PLT VOLUME 8.3 fl (7.5-11.1); MONO % 6.7 % (3.8-10.2); NEUT % 80.5 % (42.8-82.8); PLATELET COUNT 104 K/MM3 (134-434); RBC 3.11 M/mm3 (3.60-5.2); RDW 15.4 % (11.6-15.6); WHITE BLOOD COUNT 13.2 K/mm3 (4.0-10.0)
[2018-07-13 08:20] LABS: ALBUMIN 1.8 g/dl (3.4-5.0); ALK PHOS 168 U/L (45-117); ANION GAP 6 MMOL/L (8-16); BLOOD UREA NITROGEN 21 mg/dL (7-18); CALCIUM 8.2 mg/dL (8.5-10.1); CHLORIDE 99 mmol/L (98-107); CO2 35 mmol/L (21-32); CREATININE 0.7 mg/dL (0.55-1.3); GLUCOSE,RANDOM 207 mg/dL (74-106); POTASSIUM 3.2 mmol/L (3.5-5.1); SGOT/AST 45 U/L (15-37); SGPT/ALT 24 U/L (13-61); SODIUM 139 mmol/L (136-145); TOT PROT 5.7 g/dl (6.4-8.2)
[2018-07-13] MEDS: AMINO ACIDS/PROTEIN HYDROLYS 30 ML LIQUID.PKT PO SCH ×2 (08:47→16:58)
--- NOTE | 2018-07-13 09:48 | PN ---
Progress Note (short form) - Note Progress Note: OOB to chair. Breathing feels a little better today. Less SOB. No change in cough. No CP. Reports some mild right hip/inguinal area discomfort. Intake & Output 07/08/18 07/09/18 07/10/18 07/11/18 23:59 23:59 23:59 23:59 Intake Total 1450 550 Balance 1450 550 Weight 120 lb 120 lb Last Vital Signs Temp Pulse Resp BP Pulse Ox 97.6 F 94 H 20 114/54 L 96 07/11/18 05:00 07/11/18 09:29 07/11/18 09:29 07/11/18 09:29 07/10/18 21:00 Active Medications Acetaminophen (Tylenol -) 650 mg PO Q6H PRN PRN Reason: FEVER Last Admin: 07/10/18 22:13 Dose: 650 mg Albuterol/Ipratropium (Duoneb -) 1 amp NEB Q6H PRN PRN Reason: SHORTNESS OF BREATH Albuterol/Ipratropium (Duoneb -) 1 amp NEB RTID [facility] Last Admin: 07/11/18 08:39 Dose: 1 amp Amino Acids (Prosource No Carb Liquid Pkt) 30 ml PO BID@0800,1730 [facility] Last Admin: 07/11/18 08:08 Dose: 30 ml Aspirin (Ecotrin -) 81 mg PO DAILY [facility] Last Admin: 07/10/18 09:29 Dose: 81 mg Atorvastatin Calcium (Lipitor -) 20 mg PO HS [facility] Last Admin: 07/10/18 22:12 Dose: 20 mg Carbidopa/Levodopa (Sinemet 25/100 -) 1 each PO TID [facility] Last Admin: 07/11/18 06:21 Dose: 1 each Escitalopram Oxalate (Lexapro -) 10 mg PO DAILY [facility] Last Admin: 07/10/18 09:29 Dose: 10 mg Fludrocortisone Acetate (Florinef -) 0.1 mg PO DAILY [facility] Last Admin: 07/10/18 09:30 Dose: 0.1 mg Furosemide (Lasix -) 40 mg PO DAILY [facility] Last Admin: 07/10/18 09:29 Dose: 40 mg Gabapentin (Neurontin -) 100 mg PO TID [facility] Last Admin: 07/11/18 06:21 Dose: 100 mg Heparin Sodium (Porcine) (Heparin -) 5,000 unit SQ BID [facility] Last Admin: 07/10/18 22:11 Dose: 5,000 unit Meropenem 1 gm/ Dextrose 100 mls @ 200 mls/hr IVPB Q8H-IV [facility] Last Admin: 07/11/18 02:41 Dose: 200 mls/hr Insulin Aspart (Novolog Vial Sliding Scale -) 1 vial SQ ACHS [facility]; Protocol Last Admin: 07/11/18 06:21 Dose: Not Given Insulin Detemir (Levemir Vial) 35 units SQ HS [facility] Last Admin: 07/10/18 22:11 Dose: 35 units Lidocaine (Lidoderm Patch -) 1 patch TP DAILY [facility] Last Admin: 07/10/18 09:29 Dose: 1 patch Losartan Potassium (Cozaar -) 100 mg PO DAILY [facility] Last Admin: 07/10/18 09:29 Dose: 100 mg Melatonin (Melatonin) 5 mg PO HS PRN PRN Reason: INSOMNIA Last Admin: 07/10/18 22:13 Dose: 5 mg Miscellaneous (Lidoderm Patch Removal) 1 each MC DAILY@2200 [facility] Last Admin: 07/10/18 22:11 Dose: 1 each Multi-Ingredient Ointment (Zinc Oxide) 1 applic TP BID [facility] Last Admin: 07/10/18 22:13 Dose: 1 applic Nadolol (Corgard -) 20 mg PO DAILY [facility] Last Admin: 07/10/18 09:30 Dose: 20 mg Nortriptyline HCl (Pamelor -) 25 mg PO HS [facility] Last Admin: 07/10/18 22:12 Dose: 25 mg Nystatin (Mycostatin Cream -) 1 applic TP BID [facility] Last Admin: 07/10/18 22:12 Dose: 1 applic Nystatin (Nystatin Oral Suspension -) 500,000 units PO Q6HPO [facility] Last Admin: 07/11/18 06:21 Dose: 500,000 units Pantoprazole Sodium (Protonix -) 40 mg PO DAILY [facility] Last Admin: 07/10/18 09:29 Dose: 40 mg Prednisone (Deltasone -) 20 mg PO DAILY [facility] Last Admin: 07/10/18 09:29 Dose: 20 mg Constitutional: Yes: No Distress Eyes: Yes: Conjunctiva Clear, EOM Intact HENT: Yes: Atraumatic, Normocephalic Neck: Yes: Supple, Trachea Midline Cardiovascular: Yes: Regular Rate and Rhythm Respiratory: Yes: Cough, Diminished, Rhonchi, SOB on Exertion. No: Accessory Muscle Use, Rales, Stridor, Wheezes ...Inspection: Yes: WNL ...Clubbing: No Gastrointestinal: Yes: Normal Bowel Sounds, Soft Renal/: Yes: WNL Musculoskeletal: Yes: WNL Extremities: Yes: WNL Edema: No Peripheral Pulses WNL: Yes Integumentary: Yes: WNL Neurological: Yes: WNL, Alert, Oriented ...Motor Strength: WNL Psychiatric: Yes: WNL, Alert, Oriented Labs: Laboratory Results - last 24 hr 07/10/18 07/10/18 07/10/18 11:03 16:51 22:10 POC Glucometer 266 390 396 07/11/18 06:20 POC Glucometer 116 Problem List - Problems (1) Pneumonia Code(s): J18.9 - PNEUMONIA, UNSPECIFIED ORGANISM (2) Angina pectoris Code(s): I20.9 - ANGINA PECTORIS, UNSPECIFIED (3) Anxiety Code(s): F41.9 - ANXIETY DISORDER, UNSPECIFIED (4) Asthma Code(s): J45.909 - UNSPECIFIED ASTHMA, UNCOMPLICATED Qualifiers: Asthma severity: unspecified severity Asthma complication type: uncomplicated (5) Back pain Code(s): M54.9 - DORSALGIA, UNSPECIFIED (6) Breast cancer Code(s): C50.919 - MALIGNANT NEOPLASM OF UNSP SITE OF UNSPECIFIED FEMALE BREAST (7) Cirrhosis of liver Code(s): K74.60 - UNSPECIFIED CIRRHOSIS OF LIVER Qualifiers: Hepatic cirrhosis type: alcoholic cirrhosis Ascites presence: with ascites Qualified Code(s): K70.31 - Alcoholic cirrhosis of liver with ascites (8) Coronary artery disease Code(s): I25.10 - ATHSCL HEART DISEASE OF [place] CORONARY ARTERY W/O ANG PCTRS Qualifiers: Coronary Disease-Associated Artery/Lesion type: [place] artery [place] vs. transplanted heart: [place] heart Associated angina: without angina Qualified Code(s): I25.10 - Atherosclerotic heart disease of [place] coronary artery without angina pectoris (9) Cough Code(s): R05 - COUGH (10) Depression Code(s): F32.9 - MAJOR DEPRESSIVE DISORDER, SINGLE EPISODE, UNSPECIFIED (11) Diabetes Code(s): E11.9 - TYPE 2 DIABETES MELLITUS WITHOUT COMPLICATIONS Qualifiers: Diabetes mellitus type: type 2 (12) Elevated lactic acid level Code(s): R79.89 - OTHER SPECIFIED ABNORMAL FINDINGS OF BLOOD CHEMISTRY (13) Hx of antibiotic allergy Code(s): Z88.1 - ALLERGY STATUS TO OTHER ANTIBIOTIC AGENTS STATUS (14) Hyperlipidemia Code(s): E78.5 - HYPERLIPIDEMIA, UNSPECIFIED Qualifiers: Hyperlipidemia type: pure hypercholesterolemia Qualified Code(s): E78.00 - Pure hypercholesterolemia, unspecified; E78.0 - Pure hypercholesterolemia (15) Hypertension Code(s): I10 - ESSENTIAL (PRIMARY) HYPERTENSION (16) Interstitial lung disease Code(s): J84.9 - INTERSTITIAL PULMONARY DISEASE, UNSPECIFIED (17) Lactic acidosis Code(s): E87.2 - ACIDOSIS (18) Pneumonia Code(s): J18.9 - PNEUMONIA, UNSPECIFIED ORGANISM Qualifiers: (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 Assessment/Plan ABX per ID O2 as needed BD TX: standing and PRN Noted Prednisone VTE prophylaxis Lasix D/W ID: no treatment for [place] at this time Dr Viveros Problem List - Problems (1) Pneumonia Code(s): J18.9 - PNEUMONIA, UNSPECIFIED ORGANISM (2) Angina pectoris Code(s): I20.9 - ANGINA PECTORIS, UNSPECIFIED (3) Anxiety Code(s): F41.9 - ANXIETY DISORDER, UNSPECIFIED (4) Asthma Code(s): J45.909 - UNSPECIFIED ASTHMA, UNCOMPLICATED Qualifiers: Asthma severity: unspecified severity Asthma complication type: uncomplicated (5) Back pain Code(s): M54.9 - DORSALGIA, UNSPECIFIED (6) Breast cancer Code(s): C50.919 - MALIGNANT NEOPLASM OF UNSP SITE OF UNSPECIFIED FEMALE BREAST (7) Cirrhosis of liver Code(s): K74.60 - UNSPECIFIED CIRRHOSIS OF LIVER Qualifiers: Hepatic cirrhosis type: alcoholic cirrhosis Ascites presence: with ascites Qualified Code(s): K70.31 - Alcoholic cirrhosis of liver with ascites (8) Coronary artery disease Code(s): I25.10 - ATHSCL HEART DISEASE OF [place] CORONARY ARTERY W/O ANG PCTRS Qualifiers: Coronary Disease-Associated Artery/Lesion type: [place] artery [place] vs. transplanted heart: [place] heart Associated angina: without angina Qualified Code(s): I25.10 - Atherosclerotic heart disease of [place] coronary artery without angina pectoris (9) Cough Code(s): R05 - COUGH (10) Depression Code(s): F32.9 - MAJOR DEPRESSIVE DISORDER, SINGLE EPISODE, UNSPECIFIED (11) Diabetes Code(s): E11.9 - TYPE 2 DIABETES MELLITUS WITHOUT COMPLICATIONS Qualifiers: Diabetes mellitus type: type 2 (12) Elevated lactic acid level Code(s): R79.89 - OTHER SPECIFIED ABNORMAL FINDINGS OF BLOOD CHEMISTRY (13) Hx of antibiotic allergy Code(s): Z88.1 - ALLERGY STATUS TO OTHER ANTIBIOTIC AGENTS STATUS (14) Hyperlipidemia Code(s): E78.5 - HYPERLIPIDEMIA, UNSPECIFIED Qualifiers: Hyperlipidemia type: pure hypercholesterolemia Qualified Code(s): E78.00 - Pure hypercholesterolemia, unspecified; E78.0 - Pure hypercholesterolemia (15) Hypertension Code(s): I10 - ESSENTIAL (PRIMARY) HYPERTENSION (16) Interstitial lung disease Code(s): J84.9 - INTERSTITIAL PULMONARY DISEASE, UNSPECIFIED (17) Lactic acidosis Code(s): E87.2 - ACIDOSIS (18) Pneumonia Code(s): J18.9 - PNEUMONIA, UNSPECIFIED ORGANISM Qualifiers: (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
[2018-07-13] MEDS: LIDOCAINE 5% TOPICAL PATCH TP SCH (10:45)
[2018-07-13] MEDS: FUROSEMIDE 40 MG TABLET (FP) PO SCH (10:46)
[2018-07-13] MEDS: NADOLOL 20 MG TABLET (FP) PO SCH (10:46)
[2018-07-13] MEDS: ESCITALOPRAM OXALATE 10 MG TABLET (FP) PO SCH (10:46)
[2018-07-13] MEDS: ASPIRIN COATED 81 MG TABLET.EC PO SCH (10:46)
[2018-07-13] MEDS: predniSONE 20 MG TABLET (UD) PO SCH (10:46)
[2018-07-13] MEDS: LOSARTAN POTASSIUM 50 MG TABLET (FP) PO SCH (10:46)
[2018-07-13] MEDS: PANTOPRAZOLE 40 MG TABLET (FP) PO SCH (10:46)
[2018-07-13] MEDS: HEPARIN NA (PORCINE) 5,000 UNITS/ML 1ML VIAL SQ SCH ×2 (10:46→21:41)
[2018-07-13] MEDS: FLUDROCORTISONE ACETATE 0.1 MG TABLET (FP) PO SCH (10:46)
[2018-07-13] MEDS: NYSTATIN 100,000 UNIT/GM TOPICAL CREAM 15 GM TUBE TP SCH ×2 (11:01→21:40)
[2018-07-13] MEDS: ZINC OXIDE 20% TOPICAL OINTMENT 30 GM TUBE TP SCH ×2 (11:02→21:42)
[2018-07-13] MEDS ORDERED: INSULIN (NOVOLOG) ASPART 100 UNITS/ML 10ML VIAL ONE (11:08)
--- NOTE | 2018-07-13 13:12 | PN ---
Progress Note, Physician Chief Complaint: patient in bed awake alert - Current Medication List Current Medications: Active Medications Acetaminophen (Tylenol -) 650 mg PO Q6H PRN PRN Reason: FEVER Last Admin: 07/13/18 06:16 Dose: 650 mg Albuterol/Ipratropium (Duoneb -) 1 amp NEB Q6H PRN PRN Reason: SHORTNESS OF BREATH Albuterol/Ipratropium (Duoneb -) 1 amp NEB RTID [facility] Last Admin: 07/13/18 07:40 Dose: 1 amp Amino Acids (Prosource No Carb Liquid Pkt) 30 ml PO BID@0800,1730 [facility] Last Admin: 07/13/18 08:47 Dose: 30 ml Aspirin (Ecotrin -) 81 mg PO DAILY [facility] Last Admin: 07/13/18 10:46 Dose: 81 mg Atorvastatin Calcium (Lipitor -) 20 mg PO HS [facility] Last Admin: 07/12/18 21:58 Dose: 20 mg Carbidopa/Levodopa (Sinemet 25/100 -) 1 each PO TID [facility] Last Admin: 07/13/18 06:16 Dose: 1 each Escitalopram Oxalate (Lexapro -) 10 mg PO DAILY [facility] Last Admin: 07/13/18 10:46 Dose: 10 mg Fludrocortisone Acetate (Florinef -) 0.1 mg PO DAILY [facility] Last Admin: 07/13/18 10:46 Dose: 0.1 mg Furosemide (Lasix -) 40 mg PO DAILY [facility] Last Admin: 07/13/18 10:46 Dose: 40 mg Gabapentin (Neurontin -) 100 mg PO TID [facility] Last Admin: 07/13/18 06:16 Dose: 100 mg Heparin Sodium (Porcine) (Heparin -) 5,000 unit SQ BID [facility] Last Admin: 07/13/18 10:46 Dose: 5,000 unit Meropenem 1 gm/ Dextrose 100 mls @ 200 mls/hr IVPB Q8H-IV [facility] Last Admin: 07/13/18 10:45 Dose: 200 mls/hr Insulin Aspart (Novolog Vial Sliding Scale -) 1 vial SQ [facility]; Protocol Last Admin: 07/13/18 11:12 Dose: 4 units Insulin Detemir (Levemir Vial) 37 units SQ HS [facility] Last Admin: 07/12/18 21:58 Dose: 37 units Lidocaine (Lidoderm Patch -) 1 patch TP DAILY [facility] Last Admin: 07/13/18 10:45 Dose: 1 patch Losartan Potassium (Cozaar -) 100 mg PO DAILY [facility] Last Admin: 07/13/18 10:46 Dose: 100 mg Melatonin (Melatonin) 5 mg PO HS PRN PRN Reason: INSOMNIA Last Admin: 07/10/18 22:13 Dose: 5 mg Miscellaneous (Lidoderm Patch Removal) 1 each MC DAILY@2200 [facility] Last Admin: 07/12/18 21:58 Dose: 1 each Multi-Ingredient Ointment (Zinc Oxide) 1 applic TP BID [facility] Last Admin: 07/13/18 11:02 Dose: 1 applic Nadolol (Corgard -) 20 mg PO DAILY [facility] Last Admin: 07/13/18 10:46 Dose: 20 mg Nystatin (Mycostatin Cream -) 1 applic TP BID [facility] Last Admin: 07/13/18 11:01 Dose: 1 applic Nystatin (Nystatin Oral Suspension -) 500,000 units PO Q6HPO [facility] Last Admin: 07/13/18 12:35 Dose: 500,000 units Pantoprazole Sodium (Protonix -) 40 mg PO DAILY [facility] Last Admin: 07/13/18 10:46 Dose: 40 mg Potassium Chloride (K-Dur -) 40 meq PO ONCE ONE Stop: 07/13/18 13:08 Prednisone (Deltasone -) 20 mg PO DAILY [facility] Last Admin: 07/13/18 10:46 Dose: 20 mg - Objective Vital Signs: Vital Signs Temperature 97.8 F 07/13/18 09:00 Pulse Rate 93 H 07/13/18 09:00 Respiratory Rate 20 07/13/18 09:00 Blood Pressure 132/75 07/13/18 09:00 O2 Sat by Pulse Oximetry (%) 94 L 07/13/18 09:00 Constitutional: Yes: Calm Cardiovascular: Yes: Regular Rate and Rhythm, S1, S2 Respiratory: Yes: Diminished, Other (crackles) Gastrointestinal: Yes: Normal Bowel Sounds, Soft Edema: No Neurological: Yes: Alert Labs: CBC, BMP 07/13/18 06:00 07/13/18 06:00 Problem List - Problems (1) Pneumonia Assessment/Plan: iv abx meropenem Microbiology 07/08/18 18:45 Sputum - Expectorated Gram Stain - Final 03/02/19 18:45 Sputum - Expectorated Sputum Culture - Preliminary Pseudomonas Species prednsione nebs Code(s): J18.9 - PNEUMONIA, UNSPECIFIED ORGANISM (2) Back pain Assessment/Plan: MRI of spine noted compression fracture of L1-L4 abdominal binder dr owen consulted -ANSELMO Code(s): M54.9 - DORSALGIA, UNSPECIFIED (3) Anxiety Assessment/Plan: dr willy garcia Code(s): F41.9 - ANXIETY DISORDER, UNSPECIFIED (4) Diabetes Assessment/Plan: bgm insulin sliding scale Code(s): E11.9 - TYPE 2 DIABETES MELLITUS WITHOUT COMPLICATIONS Qualifiers: Diabetes mellitus type: type 2 (5) Hypokalemia Assessment/Plan: add potassium Code(s): E87.6 - HYPOKALEMIA
[2018-07-13] MEDS ORDERED: POTASSIUM CHLORIDE TABS 20 MEQ TABLET.ER (FP) PO ONE (13:15)
--- NOTE | 2018-07-13 17:03 | PN ---
Progress Note (short form) - Note Progress Note: feels much better less pain Vital Signs Period Temp Pulse Resp BP Sys/Donovan Pulse Ox Last 24 Hr 97.8 F-98.5 F 84-98 20-20 112-132/62-75 94 cor-rrr lungs decreased bs at bases abd soft,nt ext no edema CBC, BMP 07/13/18 06:00 07/13/18 06:00 Microbiology 07/08/18 18:29 Blood - Peripheral Venous Blood Culture - Preliminary NO GROWTH OBTAINED AFTER 96 HOURS, INCUBATION TO CONTINUE FOR 1 DAYS. 07/08/18 18:27 Blood - Peripheral Venous Blood Culture - Preliminary NO GROWTH OBTAINED AFTER 96 HOURS, INCUBATION TO CONTINUE FOR 1 DAYS. 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
[2018-07-13] MEDS: ATORVASTATIN CA 20 MG TABLET (FP) PO SCH (21:40)
[2018-07-13] MEDS: LIDOCAINE PATCH REMOVAL MC SCH (21:40)
[2018-07-13] MEDS: INSULIN (LEVEMIR) 100 UNITS/ML UNITS SQ SCH (21:41)
[2018-07-14] MEDS: NYSTATIN 500,000 UNITS/5 ML SUSPENSION PO SCH ×4 (00:38→17:40)
[2018-07-14] MEDS: MEROPENEM 1 GM in DEXTROSE 5%-WATER 100 ML IVPB SCH ×3 (01:53→17:39)
[2018-07-14] MEDS: CARBIDOPA/LEVODOPA 25/100 TABLET (FP) PO SCH ×3 (05:48→23:24)
[2018-07-14] MEDS: GABAPENTIN 100 MG CAPSULE (FP) PO SCH ×3 (05:48→23:23)
[2018-07-14] MEDS: INSULIN SLIDING SCALE (NOVOLOG) 1 VIAL SQ SCH ×4 (06:22→23:23)
[2018-07-14 06:48] LABS: EOS % 1.8 % (0-4.5); HEMATOCRIT 30.3 % (32.4-45.2); HEMOGLOBIN 10.6 GM/dL (10.7-15.3); LYMPH % 8.9 % (8-40); MCH 33.9 pg (25.7-33.7); MCHC 35.2 g/dl (32.0-36.0); MEAN CELL VOLUME 96.5 fl (80-96); MEAN PLT VOLUME 8.4 fl (7.5-11.1); MONO % 5.8 % (3.8-10.2); NEUT % 83.5 % (42.8-82.8); PLATELET COUNT 98 K/MM3 (134-434); RBC 3.14 M/mm3 (3.60-5.2); RDW 15.5 % (11.6-15.6); WHITE BLOOD COUNT 11.2 K/mm3 (4.0-10.0)
[2018-07-14] MEDS: ALBUTEROL SO4 2.5/IPRATROPIUM 0.5 INH SOL 3 ML VIAL.NEB. NEB SCH ×3 (07:49→21:30)
[2018-07-14 08:09] LABS: ALBUMIN 1.9 g/dl (3.4-5.0); ALK PHOS 184 U/L (45-117); ANION GAP 4 MMOL/L (8-16); BILIRUBIN,TOTAL 1.2 mg/dL (0.2-1); BLOOD UREA NITROGEN 23 mg/dL (7-18); CALCIUM 8.8 mg/dL (8.5-10.1); CHLORIDE 103 mmol/L (98-107); CO2 35 mmol/L (21-32); CREATININE 0.8 mg/dL (0.55-1.3); GLUCOSE,RANDOM 205 mg/dL (74-106); SGOT/AST 47 U/L (15-37); SGPT/ALT 32 U/L (13-61); SODIUM 142 mmol/L (136-145); TOT PROT 6.1 g/dl (6.4-8.2)
[2018-07-14] MEDS ORDERED: PT OWN MED DRAWER 7, Y5N ONE (09:23)
[2018-07-14] MEDS: PANTOPRAZOLE 40 MG TABLET (FP) PO SCH (09:44)
[2018-07-14] MEDS: ASPIRIN COATED 81 MG TABLET.EC PO SCH (09:44)
[2018-07-14] MEDS: predniSONE 20 MG TABLET (UD) PO SCH (09:44)
[2018-07-14] MEDS: ESCITALOPRAM OXALATE 10 MG TABLET (FP) PO SCH (09:44)
[2018-07-14] MEDS: AMINO ACIDS/PROTEIN HYDROLYS 30 ML LIQUID.PKT PO SCH ×2 (09:44→17:40)
[2018-07-14] MEDS: FLUDROCORTISONE ACETATE 0.1 MG TABLET (FP) PO SCH (09:44)
[2018-07-14] MEDS: HEPARIN NA (PORCINE) 5,000 UNITS/ML 1ML VIAL SQ SCH ×2 (09:44→23:21)
[2018-07-14] MEDS: LOSARTAN POTASSIUM 50 MG TABLET (FP) PO SCH (09:44)
[2018-07-14] MEDS: NADOLOL 20 MG TABLET (FP) PO SCH (09:44)
[2018-07-14] MEDS: FUROSEMIDE 40 MG TABLET (FP) PO SCH (09:44)
[2018-07-14] MEDS: LIDOCAINE 5% TOPICAL PATCH TP SCH (09:45)
[2018-07-14] MEDS: NYSTATIN 100,000 UNIT/GM TOPICAL CREAM 15 GM TUBE TP SCH ×2 (09:58→23:23)
[2018-07-14] MEDS: ZINC OXIDE 20% TOPICAL OINTMENT 30 GM TUBE TP SCH ×2 (09:59→23:24)
[2018-07-14] MEDS ORDERED: INSULIN (NOVOLOG) ASPART 100 UNITS/ML 10ML VIAL ONE (11:36)
--- NOTE | 2018-07-14 13:42 | PN ---
Progress Note, Physician Chief Complaint: PNA compression fracture L1-L4 History of Present Illness: Previous notes and events reviewed awake and alert NAD complain of pain to R hip - Current Medication List Current Medications: Active Medications Acetaminophen (Tylenol -) 650 mg PO Q6H PRN PRN Reason: FEVER Last Admin: 07/13/18 17:02 Dose: 650 mg Albuterol/Ipratropium (Duoneb -) 1 amp NEB Q6H PRN PRN Reason: SHORTNESS OF BREATH Albuterol/Ipratropium (Duoneb -) 1 amp NEB RTID [facility] Last Admin: 07/14/18 13:22 Dose: 1 amp Amino Acids (Prosource No Carb Liquid Pkt) 30 ml PO BID@0800,1730 [facility] Last Admin: 07/14/18 09:44 Dose: 30 ml Aspirin (Ecotrin -) 81 mg PO DAILY [facility] Last Admin: 07/14/18 09:44 Dose: 81 mg Atorvastatin Calcium (Lipitor -) 20 mg PO HS [facility] Last Admin: 07/13/18 21:40 Dose: 20 mg Carbidopa/Levodopa (Sinemet 25/100 -) 1 each PO TID [facility] Last Admin: 07/14/18 05:48 Dose: 1 each Escitalopram Oxalate (Lexapro -) 10 mg PO DAILY [facility] Last Admin: 07/14/18 09:44 Dose: 10 mg Fludrocortisone Acetate (Florinef -) 0.1 mg PO DAILY [facility] Last Admin: 07/14/18 09:44 Dose: 0.1 mg Furosemide (Lasix -) 40 mg PO DAILY [facility] Last Admin: 07/14/18 09:44 Dose: 40 mg Gabapentin (Neurontin -) 100 mg PO TID [facility] Last Admin: 07/14/18 05:48 Dose: 100 mg Heparin Sodium (Porcine) (Heparin -) 5,000 unit SQ BID [facility] Last Admin: 07/14/18 09:44 Dose: 5,000 unit Meropenem 1 gm/ Dextrose 100 mls @ 200 mls/hr IVPB Q8H-IV [facility] Last Admin: 07/14/18 09:43 Dose: 200 mls/hr Insulin Aspart (Novolog Vial Sliding Scale -) [address] [facility]; Protocol Last Admin: 07/14/18 11:45 Dose: Not Given Insulin Detemir (Levemir Vial) 37 units SQ [facility] Last Admin: 07/13/18 21:41 Dose: 37 units Lidocaine (Lidoderm Patch -) 1 patch TP DAILY [facility] Last Admin: 07/14/18 09:45 Dose: 1 patch Losartan Potassium (Cozaar -) 100 mg PO DAILY [facility] Last Admin: 07/14/18 09:44 Dose: 100 mg Melatonin (Melatonin) 5 mg PO HS PRN PRN Reason: INSOMNIA Last Admin: 07/10/18 22:13 Dose: 5 mg Miscellaneous (Lidoderm Patch Removal) 1 each MC DAILY@2200 [facility] Last Admin: 07/13/18 21:40 Dose: 1 each Multi-Ingredient Ointment (Zinc Oxide) 1 applic TP BID [facility] Last Admin: 07/14/18 09:59 Dose: 1 applic Nadolol (Corgard -) 20 mg PO DAILY [facility] Last Admin: 07/14/18 09:44 Dose: 20 mg Nystatin (Mycostatin Cream -) 1 applic TP BID [facility] Last Admin: 07/14/18 09:58 Dose: 1 applic Nystatin (Nystatin Oral Suspension -) 500,000 units PO Q6HPO [facility] Last Admin: 07/14/18 11:45 Dose: 500,000 units Pantoprazole Sodium (Protonix -) 40 mg PO DAILY [facility] Last Admin: 07/14/18 09:44 Dose: 40 mg Prednisone (Deltasone -) 20 mg PO DAILY [facility] Last Admin: 07/14/18 09:44 Dose: 20 mg - Objective Vital Signs: Vital Signs Temperature 98.1 F 07/14/18 13:39 Pulse Rate 99 H 07/14/18 13:39 Respiratory Rate 18 07/14/18 09:40 Blood Pressure 148/78 07/14/18 09:40 O2 Sat by Pulse Oximetry (%) 97 07/14/18 09:00 Constitutional: Yes: Well Nourished, No Distress, Calm Eyes: Yes: Conjunctiva Clear HENT: Yes: Atraumatic Cardiovascular: Yes: Regular Rate and Rhythm Respiratory: Yes: On Nasal O2, Rhonchi Gastrointestinal: Yes: Normal Bowel Sounds, Soft, Other (distention) Musculoskeletal: Yes: Muscle Weakness Extremities: Yes: WNL Edema: No Peripheral Pulses WNL: Yes Neurological: Yes: Alert, Oriented Psychiatric: Yes: Alert, Oriented Labs: CBC, BMP 07/14/18 05:40 07/14/18 05:40 Laboratory Results - last 24 hr 07/12/18 07/13/18 07/13/18 06:00 16:38 21:39 WBC RBC Hgb Hct MCV MCH MCHC RDW Plt Count MPV Absolute Neuts (auto) Neutrophils % Lymphocytes % Monocytes % Eosinophils % Basophils % Nucleated RBC % Sodium Potassium Chloride Carbon Dioxide Anion Gap BUN Creatinine Creat Clearance w eGFR POC Glucometer 290 377 Random Glucose Calcium Total Bilirubin AST ALT Alkaline Phosphatase Total Protein Albumin Aspergillus Antibody 0.03 Beta-(1,3)-D-Glucan < 31 07/14/18 07/14/18 07/14/18 05:40 05:40 05:46 WBC 11.2 H RBC 3.14 L Hgb 10.6 L Hct 30.3 L MCV 96.5 H MCH 33.9 H MCHC 35.2 RDW 15.5 Plt Count 98 L MPV 8.4 Absolute Neuts (auto) 9.4 H Neutrophils % 83.5 H Lymphocytes % 8.9 Monocytes % 5.8 Eosinophils % 1.8 Basophils % 0.0 Nucleated RBC % 0 Sodium 142 Potassium 4.0 Chloride 103 Carbon Dioxide 35 H Anion Gap 4 L BUN 23 H Creatinine 0.8 Creat Clearance w eGFR > 60 POC Glucometer 201 Random Glucose 205 H Calcium 8.8 Total Bilirubin 1.2 H AST 47 H ALT 32 Alkaline Phosphatase 184 H Total Protein 6.1 L Albumin 1.9 L Aspergillus Antibody Beta-(1,3)-D-Glucan 07/14/18 11:39 WBC RBC Hgb Hct MCV MCH MCHC RDW Plt Count MPV Absolute Neuts (auto) Neutrophils % Lymphocytes % Monocytes % Eosinophils % Basophils % Nucleated RBC % Sodium Potassium Chloride Carbon Dioxide Anion Gap BUN Creatinine Creat Clearance w eGFR POC Glucometer 159 Random Glucose Calcium Total Bilirubin AST ALT Alkaline Phosphatase Total Protein Albumin Aspergillus Antibody Beta-(1,3)-D-Glucan Problem List - Problems (1) Compression fracture of L4 vertebra Assessment/Plan: -neurosurgery on board -continue with abdominal binder -pain management -Lumbar CT scan reviewed -PT Code(s): S32.040A - WEDGE COMPRESSION FRACTURE OF FOURTH LUMBAR VERTEBRA, INIT (2) Hypokalemia Assessment/Plan: -resolved -current K 4.0 -will monitor and trend Code(s): E87.6 - HYPOKALEMIA (3) Pneumonia Assessment/Plan: -ID and pulmonary on board -continue with meropenem -sputum culture positive with pseudomonas -continue with duo neb tx -continue with prednisone Code(s): J18.9 - PNEUMONIA, UNSPECIFIED ORGANISM (4) Anxiety Assessment/Plan: -continue with lexapro Code(s): F41.9 - ANXIETY DISORDER, UNSPECIFIED (5) Diabetes Assessment/Plan: -BGM ACHS -continue with levemir, ISS -diabetic diet -HgA1c 7.5% Code(s): E11.9 - TYPE 2 DIABETES MELLITUS WITHOUT COMPLICATIONS Qualifiers: Diabetes mellitus type: type 2 (6) Hypertension Assessment/Plan: -continue with nadolol and lasix Code(s): I10 - ESSENTIAL (PRIMARY) HYPERTENSION (7) Hip pain, right Assessment/Plan: -xray ordered -pain management Code(s): M25.551 - PAIN IN RIGHT HIP Assessment/Plan dvt ppx see problem list
--- NOTE | 2018-07-14 15:34 | PN ---
Progress Note, Physician History of Present Illness: PULMONARY ALERT,FEELING BETTER,LESS DYSPNEIC.C/O R HIP PAIN - Current Medication List Current Medications: Active Medications Acetaminophen (Tylenol -) 650 mg PO Q6H PRN PRN Reason: FEVER Last Admin: 07/13/18 17:02 Dose: 650 mg Albuterol/Ipratropium (Duoneb -) 1 amp NEB Q6H PRN PRN Reason: SHORTNESS OF BREATH Albuterol/Ipratropium (Duoneb -) 1 amp NEB RTID [facility] Last Admin: 07/14/18 13:22 Dose: 1 amp Amino Acids (Prosource No Carb Liquid Pkt) 30 ml PO BID@0800,1730 [facility] Last Admin: 07/14/18 09:44 Dose: 30 ml Aspirin (Ecotrin -) 81 mg PO DAILY [facility] Last Admin: 07/14/18 09:44 Dose: 81 mg Atorvastatin Calcium (Lipitor -) 20 mg PO [facility] Last Admin: 07/13/18 21:40 Dose: 20 mg Carbidopa/Levodopa (Sinemet 25/100 -) 1 each PO TID [facility] Last Admin: 07/14/18 14:42 Dose: 1 each Escitalopram Oxalate (Lexapro -) 10 mg PO DAILY [facility] Last Admin: 07/14/18 09:44 Dose: 10 mg Fludrocortisone Acetate (Florinef -) 0.1 mg PO DAILY [facility] Last Admin: 07/14/18 09:44 Dose: 0.1 mg Furosemide (Lasix -) 40 mg PO DAILY [facility] Last Admin: 07/14/18 09:44 Dose: 40 mg Gabapentin (Neurontin -) 100 mg PO TID [facility] Last Admin: 07/14/18 14:42 Dose: 100 mg Heparin Sodium (Porcine) (Heparin -) 5,000 unit SQ BID [facility] Last Admin: 07/14/18 09:44 Dose: 5,000 unit Meropenem 1 gm/ Dextrose 100 mls @ 200 mls/hr IVPB Q8H-IV [facility] Last Admin: 07/14/18 09:43 Dose: 200 mls/hr Insulin Aspart (Novolog Vial Sliding Scale -) 1 vial SQ [facility]; Protocol Last Admin: 07/14/18 11:45 Dose: Not Given Insulin Detemir (Levemir Vial) 37 units SQ [facility] Last Admin: 07/13/18 21:41 Dose: 37 units Lidocaine (Lidoderm Patch -) 1 patch TP DAILY [facility] Last Admin: 07/14/18 09:45 Dose: 1 patch Losartan Potassium (Cozaar -) 100 mg PO DAILY [facility] Last Admin: 07/14/18 09:44 Dose: 100 mg Melatonin (Melatonin) 5 mg PO HS PRN PRN Reason: INSOMNIA Last Admin: 07/10/18 22:13 Dose: 5 mg Miscellaneous (Lidoderm Patch Removal) 1 each MC DAILY@2200 [facility] Last Admin: 07/13/18 21:40 Dose: 1 each Multi-Ingredient Ointment (Zinc Oxide) 1 applic TP BID [facility] Last Admin: 07/14/18 09:59 Dose: 1 applic Nadolol (Corgard -) 20 mg PO DAILY [facility] Last Admin: 07/14/18 09:44 Dose: 20 mg Nystatin (Mycostatin Cream -) 1 applic TP BID [facility] Last Admin: 07/14/18 09:58 Dose: 1 applic Nystatin (Nystatin Oral Suspension -) 500,000 units PO Q6HPO [facility] Last Admin: 07/14/18 11:45 Dose: 500,000 units Pantoprazole Sodium (Protonix -) 40 mg PO DAILY [facility] Last Admin: 07/14/18 09:44 Dose: 40 mg Prednisone (Deltasone -) 20 mg PO DAILY [facility] Last Admin: 07/14/18 09:44 Dose: 20 mg - Objective Vital Signs: Vital Signs Temperature 98.1 F 07/14/18 13:39 Pulse Rate 99 H 07/14/18 13:39 Respiratory Rate 18 07/14/18 09:40 Blood Pressure 148/78 07/14/18 09:40 O2 Sat by Pulse Oximetry (%) 97 07/14/18 09:00 Constitutional: Yes: Well Nourished, Calm Eyes: Yes: WNL HENT: Yes: WNL Neck: Yes: WNL Cardiovascular: Yes: Regular Rate and Rhythm, S1, S2 Respiratory: Yes: Rales (MAEVE RALES AND RHONCHI), Rhonchi Gastrointestinal: Yes: Normal Bowel Sounds, Soft Extremities: Yes: WNL Edema: No Labs: CBC, BMP 07/14/18 05:40 07/14/18 05:40 Assessment/Plan Problem List - Problems (1) Pneumonia Code(s): J18.9 - PNEUMONIA, UNSPECIFIED ORGANISM (2) Angina pectoris Code(s): I20.9 - ANGINA PECTORIS, UNSPECIFIED (3) Anxiety Code(s): F41.9 - ANXIETY DISORDER, UNSPECIFIED (4) Asthma Code(s): J45.909 - UNSPECIFIED ASTHMA, UNCOMPLICATED Qualifiers: Asthma severity: unspecified severity Asthma complication type: uncomplicated (5) Back pain Code(s): M54.9 - DORSALGIA, UNSPECIFIED (6) Breast cancer Code(s): C50.919 - MALIGNANT NEOPLASM OF UNSP SITE OF UNSPECIFIED FEMALE BREAST (7) Cirrhosis of liver Code(s): K74.60 - UNSPECIFIED CIRRHOSIS OF LIVER Qualifiers: Hepatic cirrhosis type: alcoholic cirrhosis Ascites presence: with ascites Qualified Code(s): K70.31 - Alcoholic cirrhosis of liver with ascites (8) Coronary artery disease Code(s): I25.10 - ATHSCL HEART DISEASE OF [place] CORONARY ARTERY W/O ANG PCTRS Qualifiers: Coronary Disease-Associated Artery/Lesion type: [place] artery [place] vs. transplanted heart: [place] heart Associated angina: without angina Qualified Code(s): I25.10 - Atherosclerotic heart disease of [place] coronary artery without angina pectoris (9) Cough Code(s): R05 - COUGH (10) Depression Code(s): F32.9 - MAJOR DEPRESSIVE DISORDER, SINGLE EPISODE, UNSPECIFIED (11) Diabetes Code(s): E11.9 - TYPE 2 DIABETES MELLITUS WITHOUT COMPLICATIONS Qualifiers: Diabetes mellitus type: type 2 (12) Elevated lactic acid level Code(s): R79.89 - OTHER SPECIFIED ABNORMAL FINDINGS OF BLOOD CHEMISTRY (13) Hx of antibiotic allergy Code(s): Z88.1 - ALLERGY STATUS TO OTHER ANTIBIOTIC AGENTS STATUS (14) Hyperlipidemia Code(s): E78.5 - HYPERLIPIDEMIA, UNSPECIFIED Qualifiers: Hyperlipidemia type: pure hypercholesterolemia Qualified Code(s): E78.00 - Pure hypercholesterolemia, unspecified; E78.0 - Pure hypercholesterolemia (15) Hypertension Code(s): I10 - ESSENTIAL (PRIMARY) HYPERTENSION (16) Interstitial lung disease Code(s): J84.9 - INTERSTITIAL PULMONARY DISEASE, UNSPECIFIED (17) Lactic acidosis Code(s): E87.2 - ACIDOSIS (18) Pneumonia Code(s): J18.9 - PNEUMONIA, UNSPECIFIED ORGANISM Qualifiers: (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 Assessment/Plan ABX per ID O2 as needed BD TX: standing and PRN VTE prophylaxis Lasix D/W ID: no treatment for LUCIL[place] at this time DR WESLEY Problem List - Problems (1) Pneumonia Code(s): J18.9 - PNEUMONIA, UNSPECIFIED ORGANISM (2) Angina pectoris Code(s): I20.9 - ANGINA PECTORIS, UNSPECIFIED (3) Anxiety Code(s): F41.9 - ANXIETY DISORDER, UNSPECIFIED (4) Asthma Code(s): J45.909 - UNSPECIFIED ASTHMA, UNCOMPLICATED Qualifiers: Asthma severity: unspecified severity Asthma complication type: uncomplicated (5) Back pain Code(s): M54.9 - DORSALGIA, UNSPECIFIED (6) Breast cancer Code(s): C50.919 - MALIGNANT NEOPLASM OF UNSP SITE OF UNSPECIFIED FEMALE BREAST (7) Cirrhosis of liver Code(s): K74.60 - UNSPECIFIED CIRRHOSIS OF LIVER Qualifiers: Hepatic cirrhosis type: alcoholic cirrhosis Ascites presence: with ascites Qualified Code(s): K70.31 - Alcoholic cirrhosis of liver with ascites (8) Coronary artery disease Code(s): I25.10 - ATHSCL HEART DISEASE OF [place] CORONARY ARTERY W/O ANG PCTRS Qualifiers: Coronary Disease-Associated Artery/Lesion type: [place] artery [place] vs. transplanted heart: [place] heart Associated angina: without angina Qualified Code(s): I25.10 - Atherosclerotic heart disease of [place] coronary artery without angina pectoris (9) Cough Code(s): R05 - COUGH (10) Depression Code(s): F32.9 - MAJOR DEPRESSIVE DISORDER, SINGLE EPISODE, UNSPECIFIED (11) Diabetes Code(s): E11.9 - TYPE 2 DIABETES MELLITUS WITHOUT COMPLICATIONS Qualifiers: Diabetes mellitus type: type 2 (12) Elevated lactic acid level Code(s): R79.89 - OTHER SPECIFIED ABNORMAL FINDINGS OF BLOOD CHEMISTRY (13) Hx of antibiotic allergy Code(s): Z88.1 - ALLERGY STATUS TO OTHER ANTIBIOTIC AGENTS STATUS (14) Hyperlipidemia Code(s): E78.5 - HYPERLIPIDEMIA, UNSPECIFIED Qualifiers: Hyperlipidemia type: pure hypercholesterolemia Qualified Code(s): E78.00 - Pure hypercholesterolemia, unspecified; E78.0 - Pure hypercholesterolemia (15) Hypertension Code(s): I10 - ESSENTIAL (PRIMARY) HYPERTENSION (16) Interstitial lung disease Code(s): J84.9 - INTERSTITIAL PULMONARY DISEASE, UNSPECIFIED (17) Lactic acidosis Code(s): E87.2 - ACIDOSIS (18) Pneumonia Code(s): J18.9 - PNEUMONIA, UNSPECIFIED ORGANISM Qualifiers: (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
[2018-07-14] MEDS: INSULIN (LEVEMIR) 100 UNITS/ML UNITS SQ SCH (23:22)
[2018-07-14] MEDS: ATORVASTATIN CA 20 MG TABLET (FP) PO SCH (23:23)
[2018-07-14] MEDS: LIDOCAINE PATCH REMOVAL MC SCH (23:23)
[2018-07-15] MEDS: NYSTATIN 500,000 UNITS/5 ML SUSPENSION PO SCH ×5 (00:05→23:34)
[2018-07-15] MEDS: MEROPENEM 1 GM in DEXTROSE 5%-WATER 100 ML IVPB SCH ×3 (01:40→17:04)
[2018-07-15] MEDS: GABAPENTIN 100 MG CAPSULE (FP) PO SCH ×3 (06:21→23:34)
[2018-07-15] MEDS: CARBIDOPA/LEVODOPA 25/100 TABLET (FP) PO SCH ×3 (06:21→23:34)
[2018-07-15] MEDS: INSULIN SLIDING SCALE (NOVOLOG) 1 VIAL SQ SCH ×4 (06:25→23:40)
[2018-07-15 06:53] LABS: BASO % 0.2 % (0-2.0); EOS % 1.5 % (0-4.5); HEMATOCRIT 28.8 % (32.4-45.2); HEMOGLOBIN 9.9 GM/dL (10.7-15.3); LYMPH % 7.4 % (8-40); MCH 33.2 pg (25.7-33.7); MCHC 34.4 g/dl (32.0-36.0); MEAN CELL VOLUME 96.7 fl (80-96); MEAN PLT VOLUME 8.3 fl (7.5-11.1); MONO % 6.3 % (3.8-10.2); NEUT % 84.6 % (42.8-82.8); PLATELET COUNT 83 K/MM3 (134-434); RBC 2.98 M/mm3 (3.60-5.2); RDW 15.8 % (11.6-15.6)
[2018-07-15] MEDS: ALBUTEROL SO4 2.5/IPRATROPIUM 0.5 INH SOL 3 ML VIAL.NEB. NEB SCH ×3 (07:10→21:25)
[2018-07-15 07:51] LABS: ALBUMIN 1.8 g/dl (3.4-5.0); ALK PHOS 189 U/L (45-117); ANION GAP 2 MMOL/L (8-16); BILIRUBIN,TOTAL 0.9 mg/dL (0.2-1); BLOOD UREA NITROGEN 21 mg/dL (7-18); CALCIUM 8.7 mg/dL (8.5-10.1); CHLORIDE 102 mmol/L (98-107); CO2 36 mmol/L (21-32); CREATININE 0.9 mg/dL (0.55-1.3); GLUCOSE,RANDOM 180 mg/dL (74-106); POTASSIUM 3.5 mmol/L (3.5-5.1); SGOT/AST 57 U/L (15-37); SGPT/ALT 39 U/L (13-61); SODIUM 140 mmol/L (136-145); TOT PROT 5.8 g/dl (6.4-8.2)
[2018-07-15] MEDS: FUROSEMIDE 40 MG TABLET (FP) PO SCH (09:51)
[2018-07-15] MEDS: ASPIRIN COATED 81 MG TABLET.EC PO SCH (09:51)
[2018-07-15] MEDS: PANTOPRAZOLE 40 MG TABLET (FP) PO SCH (09:51)
[2018-07-15] MEDS: LOSARTAN POTASSIUM 50 MG TABLET (FP) PO SCH (09:52)
[2018-07-15] MEDS: predniSONE 20 MG TABLET (UD) PO SCH (09:52)
[2018-07-15] MEDS: ESCITALOPRAM OXALATE 10 MG TABLET (FP) PO SCH (09:52)
[2018-07-15] MEDS: HEPARIN NA (PORCINE) 5,000 UNITS/ML 1ML VIAL SQ SCH (09:52)
[2018-07-15] MEDS: LIDOCAINE 5% TOPICAL PATCH TP SCH (09:53)
[2018-07-15] MEDS: AMINO ACIDS/PROTEIN HYDROLYS 30 ML LIQUID.PKT PO SCH ×2 (09:54→17:04)
[2018-07-15] MEDS: NYSTATIN 100,000 UNIT/GM TOPICAL CREAM 15 GM TUBE TP SCH ×2 (10:12→23:35)
[2018-07-15] MEDS: ZINC OXIDE 20% TOPICAL OINTMENT 30 GM TUBE TP SCH ×2 (10:12→23:36)
[2018-07-15] MEDS: NADOLOL 20 MG TABLET (FP) PO SCH (10:30)
[2018-07-15] MEDS: FLUDROCORTISONE ACETATE 0.1 MG TABLET (FP) PO SCH (10:30)
[2018-07-15] MEDS ORDERED: INSULIN (NOVOLOG) ASPART 100 UNITS/ML 10ML VIAL ONE (11:15)
--- NOTE | 2018-07-15 12:33 | PN ---
Progress Note, Physician - Current Medication List Current Medications: Active Medications Acetaminophen (Tylenol -) 650 mg PO Q6H PRN PRN Reason: FEVER Last Admin: 07/13/18 17:02 Dose: 650 mg Albuterol/Ipratropium (Duoneb -) 1 amp NEB Q6H PRN PRN Reason: SHORTNESS OF BREATH Albuterol/Ipratropium (Duoneb -) 1 amp NEB RTID [facility] Last Admin: 07/15/18 07:10 Dose: 1 amp Amino Acids (Prosource No Carb Liquid Pkt) 30 ml PO BID@0800,1730 [facility] Last Admin: 07/15/18 09:54 Dose: 30 ml Aspirin (Ecotrin -) 81 mg PO DAILY [facility] Last Admin: 07/15/18 09:51 Dose: 81 mg Atorvastatin Calcium (Lipitor -) 20 mg PO HS [facility] Last Admin: 07/14/18 23:23 Dose: 20 mg Carbidopa/Levodopa (Sinemet 25/100 -) 1 each PO TID [facility] Last Admin: 07/15/18 06:21 Dose: 1 each Escitalopram Oxalate (Lexapro -) 10 mg PO DAILY [facility] Last Admin: 07/15/18 09:52 Dose: 10 mg Fludrocortisone Acetate (Florinef -) 0.1 mg PO DAILY [facility] Last Admin: 07/15/18 10:30 Dose: 0.1 mg Furosemide (Lasix -) 40 mg PO DAILY [facility] Last Admin: 07/15/18 09:51 Dose: 40 mg Gabapentin (Neurontin -) 100 mg PO TID [facility] Last Admin: 07/15/18 06:21 Dose: 100 mg Heparin Sodium (Porcine) (Heparin -) 5,000 unit SQ BID [facility] Last Admin: 07/15/18 09:52 Dose: 5,000 unit Meropenem 1 gm/ Dextrose 100 mls @ 200 mls/hr IVPB Q8H-IV [facility] Last Admin: 07/15/18 10:31 Dose: 200 mls/hr Insulin Aspart (Novolog Vial Sliding Scale -) 1 vial SQ [facility]; Protocol Last Admin: 07/15/18 11:24 Dose: 6 units Insulin Detemir (Levemir Vial) 37 units SQ HS [facility] Last Admin: 07/14/18 23:22 Dose: 37 units Lidocaine (Lidoderm Patch -) 1 patch TP DAILY [facility] Last Admin: 07/15/18 09:53 Dose: 1 patch Losartan Potassium (Cozaar -) 100 mg PO DAILY [facility] Last Admin: 07/15/18 09:52 Dose: 100 mg Melatonin (Melatonin) 5 mg PO HS PRN PRN Reason: INSOMNIA Last Admin: 07/10/18 22:13 Dose: 5 mg Miscellaneous (Lidoderm Patch Removal) 1 each MC DAILY@2200 [facility] Last Admin: 07/14/18 23:23 Dose: 1 each Multi-Ingredient Ointment (Zinc Oxide) 1 applic TP BID [facility] Last Admin: 07/15/18 10:12 Dose: 1 applic Nadolol (Corgard -) 20 mg PO DAILY [facility] Last Admin: 07/15/18 10:30 Dose: 20 mg Nystatin (Mycostatin Cream -) 1 applic TP BID [facility] Last Admin: 07/15/18 10:12 Dose: 1 applic Nystatin (Nystatin Oral Suspension -) 500,000 units PO Q6HPO [facility] Last Admin: 07/15/18 11:36 Dose: 500,000 units Pantoprazole Sodium (Protonix -) 40 mg PO DAILY [facility] Last Admin: 07/15/18 09:51 Dose: 40 mg Prednisone (Deltasone -) 20 mg PO DAILY [facility] Last Admin: 07/15/18 09:52 Dose: 20 mg - Objective Vital Signs: Vital Signs Temperature 97.8 F 07/15/18 09:05 Pulse Rate 90 07/15/18 09:05 Respiratory Rate 22 H 07/15/18 09:05 Blood Pressure 128/69 07/15/18 09:05 O2 Sat by Pulse Oximetry (%) 99 07/15/18 09:10 Cardiovascular: Yes: S1, S2 Respiratory: Yes: Regular, CTA Bilaterally Gastrointestinal: Yes: Normal Bowel Sounds, Soft Labs: CBC, BMP 07/15/18 06:15 07/15/18 06:15 Assessment/Plan - Problems (1) Compression fracture of L4 vertebra Assessment/Plan: -neurosurgery on board -continue with abdominal binder -pain management -Lumbar CT scan reviewed -PT Code(s): S32.040A - WEDGE COMPRESSION FRACTURE OF FOURTH LUMBAR VERTEBRA, INIT (2) Hypokalemia Assessment/Plan: -resolved -current K 4.0 -will monitor and trend Code(s): E87.6 - HYPOKALEMIA (3) Pneumonia Assessment/Plan: -ID and pulmonary on board -continue with meropenem day 5/10 -sputum culture positive with pseudomonas -continue with duo neb tx -continue with prednisone Code(s): J18.9 - PNEUMONIA, UNSPECIFIED ORGANISM (4) Anxiety Assessment/Plan: -continue with lexapro Code(s): F41.9 - ANXIETY DISORDER, UNSPECIFIED (5) Diabetes Assessment/Plan: -BGM ACHS -continue with levemir, ISS -diabetic diet -HgA1c 7.5% Code(s): E11.9 - TYPE 2 DIABETES MELLITUS WITHOUT COMPLICATIONS Qualifiers: Diabetes mellitus type: type 2 (6) Hypertension Assessment/Plan: -continue with nadolol and lasix Code(s): I10 - ESSENTIAL (PRIMARY) HYPERTENSION (7) Hip pain, right Assessment/Plan: -xray ordered -pain management Code(s): M25.551 - PAIN IN RIGHT HIP
--- NOTE | 2018-07-15 14:12 | PN ---
Progress Note, Physician History of Present Illness: PULMONARY ALERT,NO ACUTE DISTRESS,LESS DYSPNEIC - Current Medication List Current Medications: Active Medications Acetaminophen (Tylenol -) 650 mg PO Q6H PRN PRN Reason: FEVER Last Admin: 07/13/18 17:02 Dose: 650 mg Albuterol/Ipratropium (Duoneb -) 1 amp NEB Q6H PRN PRN Reason: SHORTNESS OF BREATH Albuterol/Ipratropium (Duoneb -) 1 amp NEB RTID [facility] Last Admin: 07/15/18 13:37 Dose: 1 amp Amino Acids (Prosource No Carb Liquid Pkt) 30 ml PO BID@0800,1730 [facility] Last Admin: 07/15/18 09:54 Dose: 30 ml Aspirin (Ecotrin -) 81 mg PO DAILY [facility] Last Admin: 07/15/18 09:51 Dose: 81 mg Atorvastatin Calcium (Lipitor -) 20 mg PO HS [facility] Last Admin: 07/14/18 23:23 Dose: 20 mg Carbidopa/Levodopa (Sinemet 25/100 -) 1 each PO TID [facility] Last Admin: 07/15/18 13:50 Dose: 1 each Escitalopram Oxalate (Lexapro -) 10 mg PO DAILY [facility] Last Admin: 07/15/18 09:52 Dose: 10 mg Fludrocortisone Acetate (Florinef -) 0.1 mg PO DAILY [facility] Last Admin: 07/15/18 10:30 Dose: 0.1 mg Furosemide (Lasix -) 40 mg PO DAILY [facility] Last Admin: 07/15/18 09:51 Dose: 40 mg Gabapentin (Neurontin -) 100 mg PO TID [facility] Last Admin: 07/15/18 13:50 Dose: 100 mg Heparin Sodium (Porcine) (Heparin -) 5,000 unit SQ BID [facility] Last Admin: 07/15/18 09:52 Dose: 5,000 unit Meropenem 1 gm/ Dextrose 100 mls @ 200 mls/hr IVPB Q8H-IV [facility] Last Admin: 07/15/18 10:31 Dose: 200 mls/hr Insulin Aspart (Novolog Vial Sliding Scale -) 1 vial SQ [facility]; Protocol Last Admin: 07/15/18 11:24 Dose: 6 units Insulin Detemir (Levemir Vial) 37 units SQ [facility] Last Admin: 07/14/18 23:22 Dose: 37 units Lidocaine (Lidoderm Patch -) 1 patch TP DAILY [facility] Last Admin: 07/15/18 09:53 Dose: 1 patch Losartan Potassium (Cozaar -) 100 mg PO DAILY [facility] Last Admin: 07/15/18 09:52 Dose: 100 mg Melatonin (Melatonin) 5 mg PO HS PRN PRN Reason: INSOMNIA Last Admin: 07/10/18 22:13 Dose: 5 mg Miscellaneous (Lidoderm Patch Removal) 1 each MC DAILY@2200 [facility] Last Admin: 07/14/18 23:23 Dose: 1 each Multi-Ingredient Ointment (Zinc Oxide) 1 applic TP BID [facility] Last Admin: 07/15/18 10:12 Dose: 1 applic Nadolol (Corgard -) 20 mg PO DAILY [facility] Last Admin: 07/15/18 10:30 Dose: 20 mg Nystatin (Mycostatin Cream -) 1 applic TP BID [facility] Last Admin: 07/15/18 10:12 Dose: 1 applic Nystatin (Nystatin Oral Suspension -) 500,000 units PO Q6HPO [facility] Last Admin: 07/15/18 11:36 Dose: 500,000 units Pantoprazole Sodium (Protonix -) 40 mg PO DAILY [facility] Last Admin: 07/15/18 09:51 Dose: 40 mg Prednisone (Deltasone -) 20 mg PO DAILY [facility] Last Admin: 07/15/18 09:52 Dose: 20 mg - Objective Vital Signs: Vital Signs Temperature 97.8 F 07/15/18 09:05 Pulse Rate 90 07/15/18 09:05 Respiratory Rate 22 H 07/15/18 09:05 Blood Pressure 128/69 07/15/18 09:05 O2 Sat by Pulse Oximetry (%) 99 07/15/18 09:10 Constitutional: Yes: Well Nourished, Calm Eyes: Yes: WNL HENT: Yes: WNL Neck: Yes: WNL Cardiovascular: Yes: Regular Rate and Rhythm, S1, S2 Respiratory: Yes: Rhonchi (MAEVE RHONCHI) Gastrointestinal: Yes: Normal Bowel Sounds, Soft Extremities: Yes: WNL Edema: No Labs: CBC, BMP 07/15/18 06:15 07/15/18 06:15 Assessment/Plan Problem List - Problems (1) Pneumonia Code(s): J18.9 - PNEUMONIA, UNSPECIFIED ORGANISM (2) Angina pectoris Code(s): I20.9 - ANGINA PECTORIS, UNSPECIFIED (3) Anxiety Code(s): F41.9 - ANXIETY DISORDER, UNSPECIFIED (4) Asthma Code(s): J45.909 - UNSPECIFIED ASTHMA, UNCOMPLICATED Qualifiers: Asthma severity: unspecified severity Asthma complication type: uncomplicated (5) Back pain Code(s): M54.9 - DORSALGIA, UNSPECIFIED (6) Breast cancer Code(s): C50.919 - MALIGNANT NEOPLASM OF UNSP SITE OF UNSPECIFIED FEMALE BREAST (7) Cirrhosis of liver Code(s): K74.60 - UNSPECIFIED CIRRHOSIS OF LIVER Qualifiers: Hepatic cirrhosis type: alcoholic cirrhosis Ascites presence: with ascites Qualified Code(s): K70.31 - Alcoholic cirrhosis of liver with ascites (8) Coronary artery disease Code(s): I25.10 - ATHSCL HEART DISEASE OF [place] CORONARY ARTERY W/O ANG PCTRS Qualifiers: Coronary Disease-Associated Artery/Lesion type: [place] artery [place] vs. transplanted heart: [place] heart Associated angina: without angina Qualified Code(s): I25.10 - Atherosclerotic heart disease of [place] coronary artery without angina pectoris (9) Cough Code(s): R05 - COUGH (10) Depression Code(s): F32.9 - MAJOR DEPRESSIVE DISORDER, SINGLE EPISODE, UNSPECIFIED (11) Diabetes Code(s): E11.9 - TYPE 2 DIABETES MELLITUS WITHOUT COMPLICATIONS Qualifiers: Diabetes mellitus type: type 2 (12) Elevated lactic acid level Code(s): R79.89 - OTHER SPECIFIED ABNORMAL FINDINGS OF BLOOD CHEMISTRY (13) Hx of antibiotic allergy Code(s): Z88.1 - ALLERGY STATUS TO OTHER ANTIBIOTIC AGENTS STATUS (14) Hyperlipidemia Code(s): E78.5 - HYPERLIPIDEMIA, UNSPECIFIED Qualifiers: Hyperlipidemia type: pure hypercholesterolemia Qualified Code(s): E78.00 - Pure hypercholesterolemia, unspecified; E78.0 - Pure hypercholesterolemia (15) Hypertension Code(s): I10 - ESSENTIAL (PRIMARY) HYPERTENSION (16) Interstitial lung disease Code(s): J84.9 - INTERSTITIAL PULMONARY DISEASE, UNSPECIFIED (17) Lactic acidosis Code(s): E87.2 - ACIDOSIS (18) Pneumonia Code(s): J18.9 - PNEUMONIA, UNSPECIFIED ORGANISM Qualifiers: (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 Assessment/Plan ABX per ID O2 as needed BD TX: standing and PRN VTE prophylaxis Lasix D/W ID: no treatment for LUCILLE at this time DR WESLEY Problem List - Problems (1) Pneumonia Code(s): J18.9 - PNEUMONIA, UNSPECIFIED ORGANISM (2) Angina pectoris Code(s): I20.9 - ANGINA PECTORIS, UNSPECIFIED (3) Anxiety Code(s): F41.9 - ANXIETY DISORDER, UNSPECIFIED (4) Asthma Code(s): J45.909 - UNSPECIFIED ASTHMA, UNCOMPLICATED Qualifiers: Asthma severity: unspecified severity Asthma complication type: uncomplicated (5) Back pain Code(s): M54.9 - DORSALGIA, UNSPECIFIED (6) Breast cancer Code(s): C50.919 - MALIGNANT NEOPLASM OF UNSP SITE OF UNSPECIFIED FEMALE BREAST (7) Cirrhosis of liver Code(s): K74.60 - UNSPECIFIED CIRRHOSIS OF LIVER Qualifiers: Hepatic cirrhosis type: alcoholic cirrhosis Ascites presence: with ascites Qualified Code(s): K70.31 - Alcoholic cirrhosis of liver with ascites (8) Coronary artery disease Code(s): I25.10 - ATHSCL HEART DISEASE OF [place] CORONARY ARTERY W/O ANG PCTRS Qualifiers: Coronary Disease-Associated Artery/Lesion type: [place] artery [place] vs. transplanted heart: [place] heart Associated angina: without angina Qualified Code(s): I25.10 - Atherosclerotic heart disease of [place] coronary artery without angina pectoris (9) Cough Code(s): R05 - COUGH (10) Depression Code(s): F32.9 - MAJOR DEPRESSIVE DISORDER, SINGLE EPISODE, UNSPECIFIED (11) Diabetes Code(s): E11.9 - TYPE 2 DIABETES MELLITUS WITHOUT COMPLICATIONS Qualifiers: Diabetes mellitus type: type 2 (12) Elevated lactic acid level Code(s): R79.89 - OTHER SPECIFIED ABNORMAL FINDINGS OF BLOOD CHEMISTRY (13) Hx of antibiotic allergy Code(s): Z88.1 - ALLERGY STATUS TO OTHER ANTIBIOTIC AGENTS STATUS (14) Hyperlipidemia Code(s): E78.5 - HYPERLIPIDEMIA, UNSPECIFIED Qualifiers: Hyperlipidemia type: pure hypercholesterolemia Qualified Code(s): E78.00 - Pure hypercholesterolemia, unspecified; E78.0 - Pure hypercholesterolemia (15) Hypertension Code(s): I10 - ESSENTIAL (PRIMARY) HYPERTENSION (16) Interstitial lung disease Code(s): J84.9 - INTERSTITIAL PULMONARY DISEASE, UNSPECIFIED (17) Lactic acidosis Code(s): E87.2 - ACIDOSIS (18) Pneumonia Code(s): J18.9 - PNEUMONIA, UNSPECIFIED ORGANISM Qualifiers: (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
[2018-07-15] MEDS ORDERED: PT OWN MED DRAWER 7, Y5N ONE (16:15)
[2018-07-15] MEDS: ATORVASTATIN CA 20 MG TABLET (FP) PO SCH (23:34)
[2018-07-15] MEDS: LIDOCAINE PATCH REMOVAL MC SCH (23:35)
[2018-07-15] MEDS: INSULIN (LEVEMIR) 100 UNITS/ML UNITS SQ SCH (23:39)
[2018-07-15] MEDS: ACETAMINOPHEN 325 MG TABLET (FP) PO PRN (23:51)
[2018-07-16] MEDS: NYSTATIN 500,000 UNITS/5 ML SUSPENSION PO SCH ×3 (06:29→17:13)
[2018-07-16 06:30] LABS: BASO % 0.2 % (0-2.0); EOS % 5.8 % (0-4.5); HEMATOCRIT 29.5 % (32.4-45.2); HEMOGLOBIN 10.1 GM/dL (10.7-15.3); LYMPH % 12.2 % (8-40); MCH 33.1 pg (25.7-33.7); MCHC 34.3 g/dl (32.0-36.0); MEAN CELL VOLUME 96.4 fl (80-96); MEAN PLT VOLUME 8.2 fl (7.5-11.1); NEUT % 76.8 % (42.8-82.8); PLATELET COUNT 73 K/MM3 (134-434); RBC 3.06 M/mm3 (3.60-5.2); RDW 15.5 % (11.6-15.6)
[2018-07-16] MEDS: CARBIDOPA/LEVODOPA 25/100 TABLET (FP) PO SCH ×3 (06:30→21:55)
[2018-07-16] MEDS: ACETAMINOPHEN 325 MG TABLET (FP) PO PRN ×2 (06:30→18:19)
[2018-07-16] MEDS: GABAPENTIN 100 MG CAPSULE (FP) PO SCH ×3 (06:30→21:56)
[2018-07-16] MEDS: INSULIN SLIDING SCALE (NOVOLOG) 1 VIAL SQ SCH ×4 (06:32→22:02)
[2018-07-16 06:57] LABS: ALBUMIN 1.8 g/dl (3.4-5.0); ALK PHOS 196 U/L (45-117); ANION GAP 4 MMOL/L (8-16); BLOOD UREA NITROGEN 21 mg/dL (7-18); CALCIUM 8.7 mg/dL (8.5-10.1); CHLORIDE 101 mmol/L (98-107); CO2 35 mmol/L (21-32); CREATININE 0.8 mg/dL (0.55-1.3); GLUCOSE,RANDOM 188 mg/dL (74-106); POTASSIUM 3.4 mmol/L (3.5-5.1); SGOT/AST 44 U/L (15-37); SGPT/ALT 12 U/L (13-61); SODIUM 141 mmol/L (136-145); TOT PROT 5.8 g/dl (6.4-8.2)
[2018-07-16] MEDS: ALBUTEROL SO4 2.5/IPRATROPIUM 0.5 INH SOL 3 ML VIAL.NEB. NEB SCH ×3 (07:15→20:20)
[2018-07-16] MEDS ORDERED: PT OWN MED DRAWER 7, Y5N ONE (10:22)
[2018-07-16] MEDS: LIDOCAINE 5% TOPICAL PATCH TP SCH (10:30)
[2018-07-16] MEDS: AMINO ACIDS/PROTEIN HYDROLYS 30 ML LIQUID.PKT PO SCH ×2 (10:31→17:13)
[2018-07-16] MEDS: PANTOPRAZOLE 40 MG TABLET (FP) PO SCH (10:32)
[2018-07-16] MEDS: LOSARTAN POTASSIUM 50 MG TABLET (FP) PO SCH (10:33)
[2018-07-16] MEDS: FUROSEMIDE 40 MG TABLET (FP) PO SCH (10:33)
[2018-07-16] MEDS: ESCITALOPRAM OXALATE 10 MG TABLET (FP) PO SCH (10:33)
[2018-07-16] MEDS: predniSONE 20 MG TABLET (UD) PO SCH (10:33)
[2018-07-16] MEDS: ASPIRIN COATED 81 MG TABLET.EC PO SCH (10:33)
[2018-07-16] MEDS: FLUDROCORTISONE ACETATE 0.1 MG TABLET (FP) PO SCH (10:34)
[2018-07-16] MEDS: ZINC OXIDE 20% TOPICAL OINTMENT 30 GM TUBE TP SCH ×2 (10:41→21:58)
[2018-07-16] MEDS: NYSTATIN 100,000 UNIT/GM TOPICAL CREAM 15 GM TUBE TP SCH ×2 (10:41→21:58)
[2018-07-16] MEDS: NADOLOL 20 MG TABLET (FP) PO SCH (10:42)
--- NOTE | 2018-07-16 11:36 | PN ---
Progress Note (short form) - Note Progress Note: Patient continues to remain in bed due to pain on weight bearing. I encouraged her to attempt to ambulate with PT using binder. If patient cannot bear weight, TLSO brace may need to be replaced will follow
[2018-07-16 12:10] LABS: ASPERGIL AG 0.03 Index (0.00-0.49)
[2018-07-16] MEDS: MEROPENEM 1 GM in DEXTROSE 5%-WATER 100 ML IVPB SCH ×2 (12:38→17:13)
--- NOTE | 2018-07-16 14:44 | PN ---
Progress Note, Physician History of Present Illness: pulmonary alert,less dyspneic,less cough - Current Medication List Current Medications: Active Medications Acetaminophen (Tylenol -) 650 mg PO Q6H PRN PRN Reason: FEVER Last Admin: 07/16/18 06:30 Dose: 650 mg Albuterol/Ipratropium (Duoneb -) 1 amp NEB Q6H PRN PRN Reason: SHORTNESS OF BREATH Albuterol/Ipratropium (Duoneb -) 1 amp NEB RTID [facility] Last Admin: 07/16/18 14:07 Dose: 1 amp Amino Acids (Prosource No Carb Liquid Pkt) 30 ml PO BID@0800,1730 [facility] Last Admin: 07/16/18 10:31 Dose: 30 ml Aspirin (Ecotrin -) 81 mg PO DAILY [facility] Last Admin: 07/16/18 10:33 Dose: 81 mg Atorvastatin Calcium (Lipitor -) 20 mg PO HS [facility] Last Admin: 07/15/18 23:34 Dose: 20 mg Carbidopa/Levodopa (Sinemet 25/100 -) 1 each PO TID [facility] Last Admin: 07/16/18 13:14 Dose: 1 each Escitalopram Oxalate (Lexapro -) 10 mg PO DAILY [facility] Last Admin: 07/16/18 10:33 Dose: 10 mg Fludrocortisone Acetate (Florinef -) 0.1 mg PO DAILY [facility] Last Admin: 07/16/18 10:34 Dose: 0.1 mg Furosemide (Lasix -) 40 mg PO DAILY [facility] Last Admin: 07/16/18 10:33 Dose: 40 mg Gabapentin (Neurontin -) 100 mg PO TID [facility] Last Admin: 07/16/18 13:14 Dose: 100 mg Meropenem 1 gm/ Dextrose 100 mls @ 200 mls/hr IVPB Q8H-IV [facility] Last Admin: 07/16/18 12:38 Dose: 200 mls/hr Insulin Aspart (Novolog Vial Sliding Scale -) 1 vial SQ [facility]; Protocol Last Admin: 07/16/18 11:08 Dose: Not Given Insulin Detemir (Levemir Vial) 37 units SQ HS [facility] Last Admin: 07/15/18 23:39 Dose: 37 units Lidocaine (Lidoderm Patch -) 1 patch TP DAILY [facility] Last Admin: 07/16/18 10:30 Dose: 1 patch Losartan Potassium (Cozaar -) 100 mg PO DAILY [facility] Last Admin: 07/16/18 10:33 Dose: 100 mg Melatonin (Melatonin) 5 mg PO HS PRN PRN Reason: INSOMNIA Last Admin: 07/10/18 22:13 Dose: 5 mg Miscellaneous (Lidoderm Patch Removal) 1 each MC DAILY@2200 [facility] Last Admin: 07/15/18 23:35 Dose: 1 each Multi-Ingredient Ointment (Zinc Oxide) 1 applic TP BID [facility] Last Admin: 07/16/18 10:41 Dose: 1 applic Nadolol (Corgard -) 20 mg PO DAILY [facility] Last Admin: 07/16/18 10:42 Dose: 20 mg Nystatin (Mycostatin Cream -) 1 applic TP BID [facility] Last Admin: 07/16/18 10:41 Dose: 1 applic Nystatin (Nystatin Oral Suspension -) 500,000 units PO Q6HPO [facility] Last Admin: 07/16/18 11:08 Dose: 500,000 units Pantoprazole Sodium (Protonix -) 40 mg PO DAILY [facility] Last Admin: 07/16/18 10:32 Dose: 40 mg Prednisone (Deltasone -) 20 mg PO DAILY [facility] Last Admin: 07/16/18 10:33 Dose: 20 mg - Objective Vital Signs: Vital Signs Temperature 98.0 F 07/16/18 08:39 Pulse Rate 72 07/16/18 08:39 Respiratory Rate 15 07/16/18 08:39 Blood Pressure 110/67 07/16/18 08:39 O2 Sat by Pulse Oximetry (%) 99 07/15/18 21:00 Constitutional: Yes: Well Nourished, Calm Eyes: Yes: WNL HENT: Yes: WNL Neck: Yes: WNL Cardiovascular: Yes: Regular Rate and Rhythm, S1, S2 Respiratory: Yes: Rhonchi (bilateral rhonchi) Gastrointestinal: Yes: Normal Bowel Sounds, Soft Extremities: Yes: WNL Edema: No Labs: CBC, BMP 07/16/18 05:15 07/16/18 05:15 Assessment/Plan Problem List - Problems (1) Pneumonia Code(s): J18.9 - PNEUMONIA, UNSPECIFIED ORGANISM (2) Angina pectoris Code(s): I20.9 - ANGINA PECTORIS, UNSPECIFIED (3) Anxiety Code(s): F41.9 - ANXIETY DISORDER, UNSPECIFIED (4) Asthma Code(s): J45.909 - UNSPECIFIED ASTHMA, UNCOMPLICATED Qualifiers: Asthma severity: unspecified severity Asthma complication type: uncomplicated (5) Back pain Code(s): M54.9 - DORSALGIA, UNSPECIFIED (6) Breast cancer Code(s): C50.919 - MALIGNANT NEOPLASM OF UNSP SITE OF UNSPECIFIED FEMALE BREAST (7) Cirrhosis of liver Code(s): K74.60 - UNSPECIFIED CIRRHOSIS OF LIVER Qualifiers: Hepatic cirrhosis type: alcoholic cirrhosis Ascites presence: with ascites Qualified Code(s): K70.31 - Alcoholic cirrhosis of liver with ascites (8) Coronary artery disease Code(s): I25.10 - ATHSCL HEART DISEASE OF [place] CORONARY ARTERY W/O ANG PCTRS Qualifiers: Coronary Disease-Associated Artery/Lesion type: [place] artery [place] vs. transplanted heart: [place] heart Associated angina: without angina Qualified Code(s): I25.10 - Atherosclerotic heart disease of [place] coronary artery without angina pectoris (9) Cough Code(s): R05 - COUGH (10) Depression Code(s): F32.9 - MAJOR DEPRESSIVE DISORDER, SINGLE EPISODE, UNSPECIFIED (11) Diabetes Code(s): E11.9 - TYPE 2 DIABETES MELLITUS WITHOUT COMPLICATIONS Qualifiers: Diabetes mellitus type: type 2 (12) Elevated lactic acid level Code(s): R79.89 - OTHER SPECIFIED ABNORMAL FINDINGS OF BLOOD CHEMISTRY (13) Hx of antibiotic allergy Code(s): Z88.1 - ALLERGY STATUS TO OTHER ANTIBIOTIC AGENTS STATUS (14) Hyperlipidemia Code(s): E78.5 - HYPERLIPIDEMIA, UNSPECIFIED Qualifiers: Hyperlipidemia type: pure hypercholesterolemia Qualified Code(s): E78.00 - Pure hypercholesterolemia, unspecified; E78.0 - Pure hypercholesterolemia (15) Hypertension Code(s): I10 - ESSENTIAL (PRIMARY) HYPERTENSION (16) Interstitial lung disease Code(s): J84.9 - INTERSTITIAL PULMONARY DISEASE, UNSPECIFIED (17) Lactic acidosis Code(s): E87.2 - ACIDOSIS (18) Pneumonia Code(s): J18.9 - PNEUMONIA, UNSPECIFIED ORGANISM Qualifiers: (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 Assessment/Plan ABX per ID O2 as needed BD TX: standing and PRN VTE prophylaxis Lasix D/W ID: no treatment for LUCILLE at this time prednisone DR WESLEY Problem List - Problems (1) Pneumonia Code(s): J18.9 - PNEUMONIA, UNSPECIFIED ORGANISM (2) Angina pectoris Code(s): I20.9 - ANGINA PECTORIS, UNSPECIFIED (3) Anxiety Code(s): F41.9 - ANXIETY DISORDER, UNSPECIFIED (4) Asthma Code(s): J45.909 - UNSPECIFIED ASTHMA, UNCOMPLICATED Qualifiers: Asthma severity: unspecified severity Asthma complication type: uncomplicated (5) Back pain Code(s): M54.9 - DORSALGIA, UNSPECIFIED (6) Breast cancer Code(s): C50.919 - MALIGNANT NEOPLASM OF UNSP SITE OF UNSPECIFIED FEMALE BREAST (7) Cirrhosis of liver Code(s): K74.60 - UNSPECIFIED CIRRHOSIS OF LIVER Qualifiers: Hepatic cirrhosis type: alcoholic cirrhosis Ascites presence: with ascites Qualified Code(s): K70.31 - Alcoholic cirrhosis of liver with ascites (8) Coronary artery disease Code(s): I25.10 - ATHSCL HEART DISEASE OF [place] CORONARY ARTERY W/O ANG PCTRS Qualifiers: Coronary Disease-Associated Artery/Lesion type: [place] artery [place] vs. transplanted heart: [place] heart Associated angina: without angina Qualified Code(s): I25.10 - Atherosclerotic heart disease of [place] coronary artery without angina pectoris (9) Cough Code(s): R05 - COUGH (10) Depression Code(s): F32.9 - MAJOR DEPRESSIVE DISORDER, SINGLE EPISODE, UNSPECIFIED (11) Diabetes Code(s): E11.9 - TYPE 2 DIABETES MELLITUS WITHOUT COMPLICATIONS Qualifiers: Diabetes mellitus type: type 2 (12) Elevated lactic acid level Code(s): R79.89 - OTHER SPECIFIED ABNORMAL FINDINGS OF BLOOD CHEMISTRY (13) Hx of antibiotic allergy Code(s): Z88.1 - ALLERGY STATUS TO OTHER ANTIBIOTIC AGENTS STATUS (14) Hyperlipidemia Code(s): E78.5 - HYPERLIPIDEMIA, UNSPECIFIED Qualifiers: Hyperlipidemia type: pure hypercholesterolemia Qualified Code(s): E78.00 - Pure hypercholesterolemia, unspecified; E78.0 - Pure hypercholesterolemia (15) Hypertension Code(s): I10 - ESSENTIAL (PRIMARY) HYPERTENSION (16) Interstitial lung disease Code(s): J84.9 - INTERSTITIAL PULMONARY DISEASE, UNSPECIFIED (17) Lactic acidosis Code(s): E87.2 - ACIDOSIS (18) Pneumonia Code(s): J18.9 - PNEUMONIA, UNSPECIFIED ORGANISM Qualifiers: (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
--- NOTE | 2018-07-16 15:13 | PN ---
Progress Note, Physician - Current Medication List Current Medications: Active Medications Acetaminophen (Tylenol -) 650 mg PO Q6H PRN PRN Reason: FEVER Last Admin: 07/16/18 06:30 Dose: 650 mg Albuterol/Ipratropium (Duoneb -) 1 amp NEB Q6H PRN PRN Reason: SHORTNESS OF BREATH Albuterol/Ipratropium (Duoneb -) 1 amp NEB RTID [facility] Last Admin: 07/16/18 14:07 Dose: 1 amp Amino Acids (Prosource No Carb Liquid Pkt) 30 ml PO BID@0800,1730 [facility] Last Admin: 07/16/18 10:31 Dose: 30 ml Aspirin (Ecotrin -) 81 mg PO DAILY [facility] Last Admin: 07/16/18 10:33 Dose: 81 mg Atorvastatin Calcium (Lipitor -) 20 mg PO HS [facility] Last Admin: 07/15/18 23:34 Dose: 20 mg Carbidopa/Levodopa (Sinemet 25/100 -) 1 each PO TID [facility] Last Admin: 07/16/18 13:14 Dose: 1 each Escitalopram Oxalate (Lexapro -) 10 mg PO DAILY [facility] Last Admin: 07/16/18 10:33 Dose: 10 mg Fludrocortisone Acetate (Florinef -) 0.1 mg PO DAILY [facility] Last Admin: 07/16/18 10:34 Dose: 0.1 mg Furosemide (Lasix -) 40 mg PO DAILY [facility] Last Admin: 07/16/18 10:33 Dose: 40 mg Gabapentin (Neurontin -) 100 mg PO TID [facility] Last Admin: 07/16/18 13:14 Dose: 100 mg Meropenem 1 gm/ Dextrose 100 mls @ 200 mls/hr IVPB Q8H-IV [facility] Last Admin: 07/16/18 12:38 Dose: 200 mls/hr Insulin Aspart (Novolog Vial Sliding Scale -) 1 vial SQ ACHS [facility]; Protocol Last Admin: 07/16/18 11:08 Dose: Not Given Insulin Detemir (Levemir Vial) 37 units SQ HS [facility] Last Admin: 07/15/18 23:39 Dose: 37 units Lidocaine (Lidoderm Patch -) 1 patch TP DAILY [facility] Last Admin: 07/16/18 10:30 Dose: 1 patch Losartan Potassium (Cozaar -) 100 mg PO DAILY [facility] Last Admin: 07/16/18 10:33 Dose: 100 mg Melatonin (Melatonin) 5 mg PO HS PRN PRN Reason: INSOMNIA Last Admin: 07/10/18 22:13 Dose: 5 mg Miscellaneous (Lidoderm Patch Removal) 1 each MC DAILY@2200 [facility] Last Admin: 07/15/18 23:35 Dose: 1 each Multi-Ingredient Ointment (Zinc Oxide) 1 applic TP BID [facility] Last Admin: 07/16/18 10:41 Dose: 1 applic Nadolol (Corgard -) 20 mg PO DAILY [facility] Last Admin: 07/16/18 10:42 Dose: 20 mg Nystatin (Mycostatin Cream -) 1 applic TP BID [facility] Last Admin: 07/16/18 10:41 Dose: 1 applic Nystatin (Nystatin Oral Suspension -) 500,000 units PO Q6HPO [facility] Last Admin: 07/16/18 11:08 Dose: 500,000 units Pantoprazole Sodium (Protonix -) 40 mg PO DAILY [facility] Last Admin: 07/16/18 10:32 Dose: 40 mg Prednisone (Deltasone -) 20 mg PO DAILY [facility] Last Admin: 07/16/18 10:33 Dose: 20 mg - Objective Vital Signs: Vital Signs Temperature 98.0 F 07/16/18 08:39 Pulse Rate 72 07/16/18 08:39 Respiratory Rate 15 07/16/18 08:39 Blood Pressure 110/67 07/16/18 08:39 O2 Sat by Pulse Oximetry (%) 99 07/15/18 21:00 Cardiovascular: Yes: S1, S2 Respiratory: Yes: Regular, CTA Bilaterally Gastrointestinal: Yes: Normal Bowel Sounds, Soft Labs: CBC, BMP 07/16/18 05:15 07/16/18 05:15 Assessment/Plan - Problems (1) Compression fracture of L4 vertebra Assessment/Plan: -neurosurgery on board -continue with abdominal binder -pain management -Lumbar CT scan reviewed -PT Code(s): S32.040A - WEDGE COMPRESSION FRACTURE OF FOURTH LUMBAR VERTEBRA, INIT (2) Hypokalemia Assessment/Plan: -resolved -current K 4.0 -will monitor and trend Code(s): E87.6 - HYPOKALEMIA (3) Pneumonia Assessment/Plan: -ID and pulmonary on board -continue with meropenem day 5/10 -sputum culture positive with pseudomonas -continue with duo neb tx -continue with prednisone Code(s): J18.9 - PNEUMONIA, UNSPECIFIED ORGANISM (4) Anxiety Assessment/Plan: -continue with lexapro Code(s): F41.9 - ANXIETY DISORDER, UNSPECIFIED (5) Diabetes Assessment/Plan: -BGM ACHS -continue with levemir, ISS -diabetic diet -HgA1c 7.5% Code(s): E11.9 - TYPE 2 DIABETES MELLITUS WITHOUT COMPLICATIONS Qualifiers: Diabetes mellitus type: type 2 (6) Hypertension Assessment/Plan: -continue with nadolol and lasix Code(s): I10 - ESSENTIAL (PRIMARY) HYPERTENSION (7) Hip pain, right Assessment/Plan: -xray ordered -pain management Code(s): M25.551 - PAIN IN RIGHT HIP
[2018-07-16] MEDS ORDERED: SODIUM CHLORIDE NASAL SPRAY 44 ML BOTTLE NS ONE (18:31)
[2018-07-16] MEDS: INSULIN (LEVEMIR) 100 UNITS/ML UNITS SQ SCH (21:55)
[2018-07-16] MEDS: ATORVASTATIN CA 20 MG TABLET (FP) PO SCH (21:56)
[2018-07-16] MEDS: LIDOCAINE PATCH REMOVAL MC SCH (22:00)
[2018-07-17] MEDS: NYSTATIN 500,000 UNITS/5 ML SUSPENSION PO SCH ×4 (00:30→17:39)
[2018-07-17] MEDS: MEROPENEM 1 GM in DEXTROSE 5%-WATER 100 ML IVPB SCH ×5 (01:04→17:39)
[2018-07-17] MEDS: GABAPENTIN 100 MG CAPSULE (FP) PO SCH ×3 (06:16→23:03)
[2018-07-17] MEDS: CARBIDOPA/LEVODOPA 25/100 TABLET (FP) PO SCH ×3 (06:16→23:03)
[2018-07-17] MEDS: INSULIN SLIDING SCALE (NOVOLOG) 1 VIAL SQ SCH ×4 (06:19→23:09)
[2018-07-17 06:49] LABS: BASO % 0.3 % (0-2.0); EOS % 3.9 % (0-4.5); HEMATOCRIT 28.5 % (32.4-45.2); HEMOGLOBIN 9.9 GM/dL (10.7-15.3); LYMPH % 10.1 % (8-40); MCH 33.2 pg (25.7-33.7); MCHC 34.9 g/dl (32.0-36.0); MEAN CELL VOLUME 95.2 fl (80-96); MEAN PLT VOLUME 8.1 fl (7.5-11.1); NEUT % 80.7 % (42.8-82.8); PLATELET COUNT 66 K/MM3 (134-434); RBC 2.99 M/mm3 (3.60-5.2); RDW 15.6 % (11.6-15.6); WHITE BLOOD COUNT 8.6 K/mm3 (4.0-10.0)
[2018-07-17] MEDS: ALBUTEROL SO4 2.5/IPRATROPIUM 0.5 INH SOL 3 ML VIAL.NEB. NEB SCH ×3 (07:15→20:26)
[2018-07-17 07:26] LABS: ALBUMIN 1.8 g/dl (3.4-5.0); ALK PHOS 208 U/L (45-117); ANION GAP 4 MMOL/L (8-16); BLOOD UREA NITROGEN 24 mg/dL (7-18); CALCIUM 8.2 mg/dL (8.5-10.1); CHLORIDE 101 mmol/L (98-107); CO2 36 mmol/L (21-32); CREATININE 0.7 mg/dL (0.55-1.3); GLUCOSE,RANDOM 103 mg/dL (74-106); POTASSIUM 3.1 mmol/L (3.5-5.1); SGOT/AST 46 U/L (15-37); SGPT/ALT 27 U/L (13-61); SODIUM 142 mmol/L (136-145); TOT PROT 5.7 g/dl (6.4-8.2)
[2018-07-17] MEDS ORDERED: PT OWN MED DRAWER 7, Y5N ONE ×2 (09:25→17:15)
[2018-07-17] MEDS: predniSONE 20 MG TABLET (UD) PO SCH (09:30)
[2018-07-17] MEDS: PANTOPRAZOLE 40 MG TABLET (FP) PO SCH (09:30)
[2018-07-17] MEDS: AMINO ACIDS/PROTEIN HYDROLYS 30 ML LIQUID.PKT PO SCH ×2 (09:30→17:39)
[2018-07-17] MEDS: LOSARTAN POTASSIUM 50 MG TABLET (FP) PO SCH (09:30)
[2018-07-17] MEDS: ASPIRIN COATED 81 MG TABLET.EC PO SCH (09:30)
[2018-07-17] MEDS: FUROSEMIDE 40 MG TABLET (FP) PO SCH (09:30)
[2018-07-17] MEDS: ESCITALOPRAM OXALATE 10 MG TABLET (FP) PO SCH (09:30)
[2018-07-17] MEDS: LIDOCAINE 5% TOPICAL PATCH TP SCH ×2 (09:32→14:38)
[2018-07-17] MEDS: NADOLOL 20 MG TABLET (FP) PO SCH (09:33)
[2018-07-17] MEDS: FLUDROCORTISONE ACETATE 0.1 MG TABLET (FP) PO SCH (09:33)
--- NOTE | 2018-07-17 10:53 | PN ---
Progress Note (short form) - Note Progress Note: PULMONARY Breathing about the same. c/o back pain. No fevers or chills. Vital Signs Period Temp Pulse Resp BP Sys/Donovan Pulse Ox Last 24 Hr 97.4 F-98.1 F 75-82 18-20 110-124/57-75 98 Gen: mildly tachypneic with speaking Heart: RRR Lung: bibasilar rales, scattered rhonchi Abd: soft, nontender Ext: no edema CBC, BMP 07/17/18 06:15 07/17/18 06:15 Active Medications Acetaminophen (Tylenol -) 650 mg PO Q6H PRN PRN Reason: FEVER Last Admin: 07/16/18 18:19 Dose: 650 mg Albuterol/Ipratropium (Duoneb -) 1 amp NEB Q6H PRN PRN Reason: SHORTNESS OF BREATH Albuterol/Ipratropium (Duoneb -) 1 amp NEB RTID [facility] Last Admin: 07/17/18 07:15 Dose: 1 amp Amino Acids (Prosource No Carb Liquid Pkt) 30 ml PO BID@0800,1730 [facility] Last Admin: 07/17/18 09:30 Dose: 30 ml Aspirin (Ecotrin -) 81 mg PO DAILY [facility] Last Admin: 07/17/18 09:30 Dose: 81 mg Atorvastatin Calcium (Lipitor -) 20 mg PO HS [facility] Last Admin: 07/16/18 21:56 Dose: 20 mg Carbidopa/Levodopa (Sinemet 25/100 -) 1 each PO TID [facility] Last Admin: 07/17/18 06:16 Dose: 1 each Escitalopram Oxalate (Lexapro -) 10 mg PO DAILY [facility] Last Admin: 07/17/18 09:30 Dose: 10 mg Fludrocortisone Acetate (Florinef -) 0.1 mg PO DAILY [facility] Last Admin: 07/17/18 09:33 Dose: 0.1 mg Furosemide (Lasix -) 40 mg PO DAILY [facility] Last Admin: 07/17/18 09:30 Dose: 40 mg Gabapentin (Neurontin -) 100 mg PO TID [facility] Last Admin: 07/17/18 06:16 Dose: 100 mg Meropenem 1 gm/ Dextrose 100 mls @ 200 mls/hr IVPB Q8H-IV [facility] Last Admin: 07/17/18 09:32 Dose: 200 mls/hr Insulin Aspart (Novolog Vial Sliding Scale -) 1 vial SQ ACHS [facility]; Protocol Last Admin: 07/17/18 06:19 Dose: Not Given Insulin Detemir (Levemir Vial) 37 units SQ HS [facility] Last Admin: 07/16/18 21:55 Dose: 37 units Lidocaine (Lidoderm Patch -) 1 patch TP DAILY [facility] Last Admin: 07/17/18 09:32 Dose: 1 patch Losartan Potassium (Cozaar -) 100 mg PO DAILY [facility] Last Admin: 07/17/18 09:30 Dose: 100 mg Melatonin (Melatonin) 5 mg PO HS PRN PRN Reason: INSOMNIA Last Admin: 07/10/18 22:13 Dose: 5 mg Miscellaneous (Lidoderm Patch Removal) 1 each MC DAILY@2200 [facility] Last Admin: 07/16/18 22:00 Dose: 1 each Multi-Ingredient Ointment (Zinc Oxide) 1 applic TP BID [facility] Last Admin: 07/16/18 21:58 Dose: 1 applic Nadolol (Corgard -) 20 mg PO DAILY [facility] Last Admin: 07/17/18 09:33 Dose: 20 mg Nystatin (Mycostatin Cream -) 1 applic TP BID [facility] Last Admin: 07/16/18 21:58 Dose: 1 applic Nystatin (Nystatin Oral Suspension -) 500,000 units PO Q6HPO [facility] Last Admin: 07/17/18 06:16 Dose: 500,000 units Pantoprazole Sodium (Protonix -) 40 mg PO DAILY [facility] Last Admin: 07/17/18 09:30 Dose: 40 mg Prednisone (Deltasone -) 20 mg PO DAILY [facility] Last Admin: 07/17/18 09:30 Dose: 20 mg A/P Pneumonia Atypical Mycobacteria Lumbar Compression Fracture CAD h/o CVA Liver Cirrhosis HTN Hyperlipidemia Parkinsons Disease DM - continue antibiotics per ID - slow prednisone taper - inhaled bronchodilators - O2 to keep Spo2 >90% - replete lytes - DVT prophylaxis
[2018-07-17] MEDS: NYSTATIN 100,000 UNIT/GM TOPICAL CREAM 15 GM TUBE TP SCH ×2 (11:48→23:04)
[2018-07-17] MEDS: ZINC OXIDE 20% TOPICAL OINTMENT 30 GM TUBE TP SCH ×2 (11:54→23:03)
[2018-07-17] MEDS ORDERED: POTASSIUM CHLORIDE ORAL LIQUID 20 MEQ/15 ML PO ONE (12:42)
--- NOTE | 2018-07-17 13:31 | PN ---
Progress Note, Physician Chief Complaint: PNA compression fracture L1-L4 History of Present Illness: Previous notes and events reviewed awake and alert NAD complain of pain to R hip - Current Medication List Current Medications: Active Medications Acetaminophen (Tylenol -) 650 mg PO Q6H PRN PRN Reason: FEVER Last Admin: 07/16/18 18:19 Dose: 650 mg Albuterol/Ipratropium (Duoneb -) 1 amp NEB Q6H PRN PRN Reason: SHORTNESS OF BREATH Albuterol/Ipratropium (Duoneb -) 1 amp NEB RTID [facility] Last Admin: 07/17/18 13:20 Dose: 1 amp Amino Acids (Prosource No Carb Liquid Pkt) 30 ml PO BID@0800,1730 [facility] Last Admin: 07/17/18 09:30 Dose: 30 ml Aspirin (Ecotrin -) 81 mg PO DAILY [facility] Last Admin: 07/17/18 09:30 Dose: 81 mg Atorvastatin Calcium (Lipitor -) 20 mg PO HS [facility] Last Admin: 07/16/18 21:56 Dose: 20 mg Carbidopa/Levodopa (Sinemet 25/100 -) 1 each PO TID [facility] Last Admin: 07/17/18 06:16 Dose: 1 each Escitalopram Oxalate (Lexapro -) 10 mg PO DAILY [facility] Last Admin: 07/17/18 09:30 Dose: 10 mg Fludrocortisone Acetate (Florinef -) 0.1 mg PO DAILY [facility] Last Admin: 07/17/18 09:33 Dose: 0.1 mg Furosemide (Lasix -) 40 mg PO DAILY [facility] Last Admin: 07/17/18 09:30 Dose: 40 mg Gabapentin (Neurontin -) 100 mg PO TID [facility] Last Admin: 07/17/18 06:16 Dose: 100 mg Meropenem 1 gm/ Dextrose 100 mls @ 200 mls/hr IVPB Q8H-IV [facility] Last Admin: 07/17/18 09:32 Dose: 200 mls/hr Insulin Aspart (Novolog Vial Sliding Scale -) 1 vial SQ ACHS [facility]; Protocol Last Admin: 07/17/18 11:47 Dose: Not Given Insulin Detemir (Levemir Vial) 37 units SQ HS [facility] Last Admin: 07/16/18 21:55 Dose: 37 units Lidocaine (Lidoderm Patch -) 1 patch TP DAILY [facility] Last Admin: 07/17/18 09:32 Dose: 1 patch Losartan Potassium (Cozaar -) 100 mg PO DAILY [facility] Last Admin: 07/17/18 09:30 Dose: 100 mg Melatonin (Melatonin) 5 mg PO HS PRN PRN Reason: INSOMNIA Last Admin: 07/10/18 22:13 Dose: 5 mg Miscellaneous (Lidoderm Patch Removal) 1 each MC DAILY@2200 [facility] Last Admin: 07/16/18 22:00 Dose: 1 each Multi-Ingredient Ointment (Zinc Oxide) 1 applic TP BID [facility] Last Admin: 07/17/18 11:54 Dose: 1 applic Nadolol (Corgard -) 20 mg PO DAILY [facility] Last Admin: 07/17/18 09:33 Dose: 20 mg Nystatin (Mycostatin Cream -) 1 applic TP BID [facility] Last Admin: 07/17/18 11:48 Dose: 1 applic Nystatin (Nystatin Oral Suspension -) 500,000 units PO Q6HPO [facility] Last Admin: 07/17/18 11:58 Dose: 500,000 units Pantoprazole Sodium (Protonix -) 40 mg PO DAILY [facility] Last Admin: 07/17/18 09:30 Dose: 40 mg Prednisone (Deltasone -) 20 mg PO DAILY [facility] Last Admin: 07/17/18 09:30 Dose: 20 mg - Objective Vital Signs: Vital Signs Temperature 98.5 F 07/17/18 10:00 Pulse Rate 83 07/17/18 10:00 Respiratory Rate 20 07/17/18 10:00 Blood Pressure 156/98 07/17/18 10:00 O2 Sat by Pulse Oximetry (%) 98 07/17/18 09:00 Constitutional: Yes: No Distress, Calm Eyes: Yes: Conjunctiva Clear HENT: Yes: Atraumatic Cardiovascular: Yes: Regular Rate and Rhythm Respiratory: Yes: On Nasal O2, Rhonchi Gastrointestinal: Yes: Normal Bowel Sounds, Soft, Other (non tender) Genitourinary: Yes: Incontinence Musculoskeletal: Yes: Muscle Weakness Extremities: Yes: WNL Edema: No Neurological: Yes: Alert, Oriented Psychiatric: Yes: Alert, Oriented Labs: CBC, BMP 07/17/18 06:15 07/17/18 06:15 Microbiology 07/08/18 18:29 Blood - Peripheral Venous Blood Culture - Final NO GROWTH AFTER 5 DAYS INCUBATION 07/08/18 18:27 Blood - Peripheral Venous Blood Culture - Final NO GROWTH AFTER 5 DAYS INCUBATION 07/08/18 18:45 Sputum - Expectorated Gram Stain - Final 07/08/18 18:45 Sputum - Expectorated Sputum Culture - Final Pseudomonas Aeruginosa 07/08/18 20:30 Urine - Urine Clean Catch Urine Culture - Final NO GROWTH OBTAINED 07/08/18 20:30 Urine For Antigen Detection Legionella Antigen - Final 07/08/18 20:30 Urine For Antigen Detection Streptococcus pneumoniae Antigen (M - Final Problem List - Problems (1) Compression fracture of L4 vertebra Assessment/Plan: -neurosurgery on board -continue with abdominal binder -pain management -Lumbar CT scan reviewed -PT Code(s): S32.040A - WEDGE COMPRESSION FRACTURE OF FOURTH LUMBAR VERTEBRA, INIT (2) Hypokalemia Assessment/Plan: -resolved -current K 3.1--KCl 40mEq PO x 1 ordered -will monitor and replete as necessary Code(s): E87.6 - HYPOKALEMIA (3) Pneumonia Assessment/Plan: -ID and pulmonary on board -continue with meropenem day 6 of 10 -sputum culture positive with pseudomonas -continue with duo neb tx -continue with prednisone Code(s): J18.9 - PNEUMONIA, UNSPECIFIED ORGANISM (4) Anxiety Assessment/Plan: -continue with lexapro Code(s): F41.9 - ANXIETY DISORDER, UNSPECIFIED (5) Diabetes Assessment/Plan: -BGM ACHS -continue with levemir, ISS -diabetic diet -HgA1c 7.5% Code(s): E11.9 - TYPE 2 DIABETES MELLITUS WITHOUT COMPLICATIONS Qualifiers: Diabetes mellitus type: type 2 (6) Hypertension Assessment/Plan: -continue with nadolol and lasix Code(s): I10 - ESSENTIAL (PRIMARY) HYPERTENSION (7) Hip pain, right Assessment/Plan: -xray ordered -pain management Code(s): M25.551 - PAIN IN RIGHT HIP
[2018-07-17] MEDS ORDERED: INSULIN (NOVOLOG) ASPART 100 UNITS/ML 10ML VIAL ONE ×2 (17:16→23:24)
[2018-07-17] MEDS: ATORVASTATIN CA 20 MG TABLET (FP) PO SCH (23:03)
[2018-07-17] MEDS: INSULIN (LEVEMIR) 100 UNITS/ML UNITS SQ SCH (23:03)
[2018-07-17] MEDS: LIDOCAINE PATCH REMOVAL MC SCH ×2 (23:04)
[2018-07-17] MEDS ORDERED: INSULIN (LEVEMIR) 100 UNITS/ML UNITS SQ ONE (23:24)
[2018-07-18] MEDS: NYSTATIN 500,000 UNITS/5 ML SUSPENSION PO SCH ×4 (00:40→17:45)
[2018-07-18] MEDS ORDERED: PT OWN MED DRAWER 7, Y5N ONE ×3 (00:53→17:32)
[2018-07-18] MEDS: MEROPENEM 1 GM in DEXTROSE 5%-WATER 100 ML IVPB SCH ×3 (01:05→17:45)
[2018-07-18] MEDS: INSULIN SLIDING SCALE (NOVOLOG) 1 VIAL SQ SCH ×4 (06:23→23:05)
[2018-07-18] MEDS: GABAPENTIN 100 MG CAPSULE (FP) PO SCH ×3 (06:23→23:00)
[2018-07-18] MEDS: CARBIDOPA/LEVODOPA 25/100 TABLET (FP) PO SCH ×3 (06:23→23:00)
[2018-07-18 08:05] LABS: HEMATOCRIT 30.2 % (32.4-45.2); HEMOGLOBIN 10.6 GM/dL (10.7-15.3); MCH 33.5 pg (25.7-33.7); MCHC 35.1 g/dl (32.0-36.0); MEAN CELL VOLUME 95.6 fl (80-96); MEAN PLT VOLUME 8.5 fl (7.5-11.1); PLATELET COUNT 67 K/MM3 (134-434); RBC 3.16 M/mm3 (3.60-5.2); RDW 15.3 % (11.6-15.6); WHITE BLOOD COUNT 10.3 K/mm3 (4.0-10.0)
[2018-07-18 08:46] LABS: ALBUMIN 1.9 g/dl (3.4-5.0); ALK PHOS 260 U/L (45-117); ANION GAP 4 MMOL/L (8-16); BILIRUBIN,TOTAL 1.3 mg/dL (0.2-1); BLOOD UREA NITROGEN 22 mg/dL (7-18); CALCIUM 8.5 mg/dL (8.5-10.1); CHLORIDE 100 mmol/L (98-107); CO2 36 mmol/L (21-32); CREATININE 0.7 mg/dL (0.55-1.3); GLUCOSE,RANDOM 220 mg/dL (74-106); POTASSIUM 3.1 mmol/L (3.5-5.1); SGOT/AST 48 U/L (15-37); SGPT/ALT 15 U/L (13-61); SODIUM 140 mmol/L (136-145); TOT PROT 6.1 g/dl (6.4-8.2)
[2018-07-18] MEDS: ALBUTEROL SO4 2.5/IPRATROPIUM 0.5 INH SOL 3 ML VIAL.NEB. NEB SCH ×3 (08:46→20:15)
[2018-07-18] MEDS: AMINO ACIDS/PROTEIN HYDROLYS 30 ML LIQUID.PKT PO SCH ×2 (09:09→16:49)
[2018-07-18] MEDS: predniSONE 20 MG TABLET (UD) PO SCH (09:56)
[2018-07-18] MEDS: LOSARTAN POTASSIUM 50 MG TABLET (FP) PO SCH (09:56)
[2018-07-18] MEDS: ESCITALOPRAM OXALATE 10 MG TABLET (FP) PO SCH (09:56)
[2018-07-18] MEDS: FLUDROCORTISONE ACETATE 0.1 MG TABLET (FP) PO SCH (09:56)
[2018-07-18] MEDS: NADOLOL 20 MG TABLET (FP) PO SCH (09:56)
[2018-07-18] MEDS: ASPIRIN COATED 81 MG TABLET.EC PO SCH (09:56)
[2018-07-18] MEDS: PANTOPRAZOLE 40 MG TABLET (FP) PO SCH (09:56)
[2018-07-18] MEDS: FUROSEMIDE 40 MG TABLET (FP) PO SCH (09:56)
[2018-07-18] MEDS: NYSTATIN 100,000 UNIT/GM TOPICAL CREAM 15 GM TUBE TP SCH ×2 (09:57→23:01)
[2018-07-18] MEDS: LIDOCAINE 5% TOPICAL PATCH TP SCH ×2 (09:57)
[2018-07-18] MEDS: ZINC OXIDE 20% TOPICAL OINTMENT 30 GM TUBE TP SCH ×2 (09:57→23:10)
--- NOTE | 2018-07-18 10:28 | PN ---
Progress Note (short form) - Note Progress Note: PULMONARY Breathing about the same. c/o back/leg pain. No fevers or chills. Vital Signs Period Temp Pulse Resp BP Sys/Donovan Pulse Ox Last 24 Hr 97.4 F-98.8 F 80-89 20-20 119-131/60-73 98 Gen: mildly tachypneic with speaking Heart: RRR Lung: bibasilar rales, scattered rhonchi Abd: soft, nontender Ext: no edema CBC, BMP 07/18/18 07:00 07/18/18 07:00 Active Medications Acetaminophen (Tylenol -) 650 mg PO Q6H PRN PRN Reason: FEVER Last Admin: 07/16/18 18:19 Dose: 650 mg Albuterol/Ipratropium (Duoneb -) 1 amp NEB Q6H PRN PRN Reason: SHORTNESS OF BREATH Albuterol/Ipratropium (Duoneb -) 1 amp NEB RTID [facility] Last Admin: 07/18/18 08:46 Dose: 1 amp Amino Acids (Prosource No Carb Liquid Pkt) 30 ml PO BID@0800,1730 [facility] Last Admin: 07/18/18 09:09 Dose: 30 ml Aspirin (Ecotrin -) 81 mg PO DAILY [facility] Last Admin: 07/18/18 09:56 Dose: 81 mg Atorvastatin Calcium (Lipitor -) 20 mg PO HS [facility] Last Admin: 07/17/18 23:03 Dose: 20 mg Carbidopa/Levodopa (Sinemet 25/100 -) 1 each PO TID [facility] Last Admin: 07/18/18 06:23 Dose: 1 each Escitalopram Oxalate (Lexapro -) 10 mg PO DAILY [facility] Last Admin: 07/18/18 09:56 Dose: 10 mg Fludrocortisone Acetate (Florinef -) 0.1 mg PO DAILY [facility] Last Admin: 07/18/18 09:56 Dose: 0.1 mg Furosemide (Lasix -) 40 mg PO DAILY [facility] Last Admin: 07/18/18 09:56 Dose: 40 mg Gabapentin (Neurontin -) 100 mg PO TID [facility] Last Admin: 07/18/18 06:23 Dose: 100 mg Meropenem 1 gm/ Dextrose 100 mls @ 200 mls/hr IVPB Q8H-IV [facility] Last Admin: 07/18/18 09:56 Dose: 200 mls/hr Insulin Aspart (Novolog Vial Sliding Scale -) 1 vial SQ ACHS [facility]; Protocol Last Admin: 07/18/18 06:23 Dose: 4 units Insulin Detemir (Levemir Vial) 37 units SQ HS [facility] Last Admin: 07/17/18 23:03 Dose: 37 units Lidocaine (Lidoderm Patch -) 1 patch TP DAILY [facility] Last Admin: 07/18/18 09:57 Dose: 1 patch Lidocaine (Lidoderm Patch -) 1 patch TP DAILY [facility] Last Admin: 07/18/18 09:57 Dose: 1 patch Losartan Potassium (Cozaar -) 100 mg PO DAILY [facility] Last Admin: 07/18/18 09:56 Dose: 100 mg Melatonin (Melatonin) 5 mg PO HS PRN PRN Reason: INSOMNIA Last Admin: 07/10/18 22:13 Dose: 5 mg Miscellaneous (Lidoderm Patch Removal) 1 each MC DAILY@2200 [facility] Last Admin: 07/17/18 23:04 Dose: 1 each Miscellaneous (Lidoderm Patch Removal) 1 each MC DAILY@2200 [facility] Last Admin: 07/17/18 23:04 Dose: 1 each Multi-Ingredient Ointment (Zinc Oxide) 1 applic TP BID [facility] Last Admin: 07/18/18 09:57 Dose: 1 applic Nadolol (Corgard -) 20 mg PO DAILY [facility] Last Admin: 07/18/18 09:56 Dose: 20 mg Nystatin (Mycostatin Cream -) 1 applic TP BID [facility] Last Admin: 07/18/18 09:57 Dose: 1 applic Nystatin (Nystatin Oral Suspension -) 500,000 units PO Q6HPO [facility] Last Admin: 07/18/18 06:23 Dose: 500,000 units Pantoprazole Sodium (Protonix -) 40 mg PO DAILY [facility] Last Admin: 07/18/18 09:56 Dose: 40 mg Prednisone (Deltasone -) 20 mg PO DAILY [facility] Last Admin: 07/18/18 09:56 Dose: 20 mg A/P Pneumonia Atypical Mycobacteria Lumbar Compression Fracture CAD h/o CVA Liver Cirrhosis HTN Hyperlipidemia Parkinsons Disease DM - continue antibiotics per ID - slow prednisone taper - inhaled bronchodilators - O2 to keep Spo2 >90% - replete lytes - rehab/PT - DVT prophylaxis
--- NOTE | 2018-07-18 11:37 | PN ---
Progress Note, Physician Chief Complaint: Respiratory distress History of Present Illness: Known to Dr Song's service Previous sputum culture showed Pseudomnas Aerugenosa - Current Medication List Current Medications: Active Medications Acetaminophen (Tylenol -) 650 mg PO Q6H PRN PRN Reason: FEVER Last Admin: 07/16/18 18:19 Dose: 650 mg Albuterol/Ipratropium (Duoneb -) 1 amp NEB Q6H PRN PRN Reason: SHORTNESS OF BREATH Albuterol/Ipratropium (Duoneb -) 1 amp NEB RTID [facility] Last Admin: 07/18/18 08:46 Dose: 1 amp Amino Acids (Prosource No Carb Liquid Pkt) 30 ml PO BID@0800,1730 [facility] Last Admin: 07/18/18 09:09 Dose: 30 ml Aspirin (Ecotrin -) 81 mg PO DAILY [facility] Last Admin: 07/18/18 09:56 Dose: 81 mg Atorvastatin Calcium (Lipitor -) 20 mg PO HS [facility] Last Admin: 07/17/18 23:03 Dose: 20 mg Carbidopa/Levodopa (Sinemet 25/100 -) 1 each PO TID [facility] Last Admin: 07/18/18 06:23 Dose: 1 each Escitalopram Oxalate (Lexapro -) 10 mg PO DAILY [facility] Last Admin: 07/18/18 09:56 Dose: 10 mg Fludrocortisone Acetate (Florinef -) 0.1 mg PO DAILY [facility] Last Admin: 07/18/18 09:56 Dose: 0.1 mg Furosemide (Lasix -) 40 mg PO DAILY [facility] Last Admin: 07/18/18 09:56 Dose: 40 mg Gabapentin (Neurontin -) 100 mg PO TID [facility] Last Admin: 07/18/18 06:23 Dose: 100 mg Meropenem 1 gm/ Dextrose 100 mls @ 200 mls/hr IVPB Q8H-IV [facility] Last Admin: 07/18/18 09:56 Dose: 200 mls/hr Insulin Aspart (Novolog Vial Sliding Scale -) 1 vial SQ ACHS [facility]; Protocol Last Admin: 07/18/18 06:23 Dose: 4 units Insulin Detemir (Levemir Vial) 37 units SQ HS [facility] Last Admin: 07/17/18 23:03 Dose: 37 units Lidocaine (Lidoderm Patch -) 1 patch TP DAILY [facility] Last Admin: 07/18/18 09:57 Dose: 1 patch Lidocaine (Lidoderm Patch -) 1 patch TP DAILY [facility] Last Admin: 07/18/18 09:57 Dose: 1 patch Losartan Potassium (Cozaar -) 100 mg PO DAILY [facility] Last Admin: 07/18/18 09:56 Dose: 100 mg Melatonin (Melatonin) 5 mg PO HS PRN PRN Reason: INSOMNIA Last Admin: 07/10/18 22:13 Dose: 5 mg Miscellaneous (Lidoderm Patch Removal) 1 each MC DAILY@2200 [facility] Last Admin: 07/17/18 23:04 Dose: 1 each Miscellaneous (Lidoderm Patch Removal) 1 each MC DAILY@2200 [facility] Last Admin: 07/17/18 23:04 Dose: 1 each Multi-Ingredient Ointment (Zinc Oxide) 1 applic TP BID [facility] Last Admin: 07/18/18 09:57 Dose: 1 applic Nadolol (Corgard -) 20 mg PO DAILY [facility] Last Admin: 07/18/18 09:56 Dose: 20 mg Nystatin (Mycostatin Cream -) 1 applic TP BID [facility] Last Admin: 07/18/18 09:57 Dose: 1 applic Nystatin (Nystatin Oral Suspension -) 500,000 units PO Q6HPO [facility] Last Admin: 07/18/18 06:23 Dose: 500,000 units Pantoprazole Sodium (Protonix -) 40 mg PO DAILY [facility] Last Admin: 07/18/18 09:56 Dose: 40 mg Prednisone (Deltasone -) 20 mg PO DAILY [facility] Last Admin: 07/18/18 09:56 Dose: 20 mg - Objective Vital Signs: Vital Signs Temperature 98.6 F 07/18/18 09:45 Pulse Rate 89 07/18/18 09:45 Respiratory Rate 20 07/18/18 09:45 Blood Pressure 131/71 07/18/18 09:45 O2 Sat by Pulse Oximetry (%) 98 07/17/18 20:39 Constitutional: Yes: Well Nourished, No Distress, Calm Cardiovascular: Yes: Regular Rate and Rhythm Respiratory: Yes: On Nasal O2, Rhonchi (diffuse), Wheezes (diffuse) Musculoskeletal: Yes: Muscle Weakness Edema: Yes Edema: LLE: Trace, RLE: Trace Peripheral Pulses WNL: Yes Neurological: Yes: Alert, Pre-Existing Deficit Psychiatric: Yes: Alert Labs: CBC, BMP 07/18/18 07:00 07/18/18 07:00 Problem List - Problems (1) Pneumonia Assessment/Plan: -repeat sputum culture shows same: Microbiology 07/08/18 18:29 Blood - Peripheral Venous Blood Culture - Final NO GROWTH AFTER 5 DAYS INCUBATION 07/08/18 18:27 Blood - Peripheral Venous Blood Culture - Final NO GROWTH AFTER 5 DAYS INCUBATION 07/08/18 18:45 Sputum - Expectorated Gram Stain - Final 07/08/18 18:45 Sputum - Expectorated Sputum Culture - Final Pseudomonas Aeruginosa 07/08/18 20:30 Urine - Urine Clean Catch Urine Culture - Final NO GROWTH OBTAINED 07/08/18 20:30 Urine For Antigen Detection Legionella Antigen - Final 07/08/18 20:30 Urine For Antigen Detection Streptococcus pneumoniae Antigen (M - Final -IV abx-meropenem -On prednisone -afebrile Code(s): J18.9 - PNEUMONIA, UNSPECIFIED ORGANISM (2) Diabetes Assessment/Plan: -BGM AC HS -Insulin: levemir+ novolog -Also increase secondary to steroids -Increase levemir from 35 to 37 U -Diabetic diet -Last A1c 7.5 Code(s): E11.9 - TYPE 2 DIABETES MELLITUS WITHOUT COMPLICATIONS Qualifiers: Diabetes mellitus type: type 2 (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 -Seen by NS -Abdominal binder -Pain management -Physical therapy Code(s): S32.040A - WEDGE COMPRESSION FRACTURE OF FOURTH LUMBAR VERTEBRA, INIT (4) Fracture of ramus of right pubis with routine healing Assessment/Plan: -Inferior and superior -Seen by orthopedic surgery -conservative measurement -pain management -Physical therapy Code(s): S32.591D - OTH FRACTURE OF RIGHT PUBIS, SUBS FOR FX W ROUTN HEAL (5) Lumbar canal stenosis Assessment/Plan: -Seen by Neurosurgery -Physical therapy -Abdominal binder -Pain management-lidocaine patch with gabapentin Code(s): M48.061 - SPINAL STENOSIS, LUMBAR REGION WITHOUT NEUROGENIC IRVIN (6) Anxiety Assessment/Plan: -Seen by Psychiatry -On lexapro Code(s): F41.9 - ANXIETY DISORDER, UNSPECIFIED (7) Anemia Assessment/Plan: -stable -check iron studies and stool ob -monitor trend Code(s): D64.9 - ANEMIA, UNSPECIFIED Assessment/Plan see problem list physical therapy-poor performance
[2018-07-18] MEDS: POTASSIUM CHLORIDE ORAL LIQUID 20 MEQ/15 ML PO SCH ×2 (12:59→23:00)
[2018-07-18] MEDS: HEPARIN NA (PORCINE) 5,000 UNITS/ML 1ML VIAL SQ SCH ×2 (12:59→23:10)
[2018-07-18] MEDS: KCL 10 MEQ IVPB 10 MEQ/100 ML INFUS.BAG IVPB SCH ×3 (12:59→15:58)
[2018-07-18] MEDS ORDERED: INSULIN (NOVOLOG) ASPART 100 UNITS/ML 10ML VIAL ONE (16:46)
[2018-07-18] MEDS: INSULIN (LEVEMIR) 100 UNITS/ML UNITS SQ SCH (23:00)
[2018-07-18] MEDS: ATORVASTATIN CA 20 MG TABLET (FP) PO SCH (23:00)
[2018-07-18] MEDS: LIDOCAINE PATCH REMOVAL MC SCH ×2 (23:00)
[2018-07-18] MEDS: ACETAMINOPHEN 325 MG TABLET (FP) PO PRN (23:14)
[2018-07-18] MEDS: MELATONIN 5 MG TABLETS PO PRN (23:14)
[2018-07-19] MEDS: NYSTATIN 500,000 UNITS/5 ML SUSPENSION PO SCH ×4 (00:11→17:18)
[2018-07-19] MEDS: MEROPENEM 1 GM in DEXTROSE 5%-WATER 100 ML IVPB SCH ×3 (01:49→17:18)
[2018-07-19 04:15] LABS: SERUM IRON SATURATION 31 % (15-55); TOTAL IRON BINDING CAPACITY 209 ug/dL (250-450); UIBC 145 ug/dL (118-369)
[2018-07-19] MEDS: CARBIDOPA/LEVODOPA 25/100 TABLET (FP) PO SCH ×3 (06:21→22:42)
[2018-07-19] MEDS: INSULIN SLIDING SCALE (NOVOLOG) 1 VIAL SQ SCH ×4 (06:21→22:41)
[2018-07-19] MEDS: GABAPENTIN 100 MG CAPSULE (FP) PO SCH ×3 (06:21→22:41)
[2018-07-19] MEDS: ALBUTEROL SO4 2.5/IPRATROPIUM 0.5 INH SOL 3 ML VIAL.NEB. NEB SCH ×3 (07:29→20:45)
[2018-07-19] MEDS: ACETAMINOPHEN 325 MG TABLET (FP) PO PRN ×3 (08:00→22:42)
[2018-07-19] MEDS: AMINO ACIDS/PROTEIN HYDROLYS 30 ML LIQUID.PKT PO SCH ×2 (08:00→17:18)
[2018-07-19 08:08] LABS: BASO % 0.3 % (0-2.0); EOS % 4.4 % (0-4.5); HEMATOCRIT 30.7 % (32.4-45.2); HEMOGLOBIN 10.6 GM/dL (10.7-15.3); LYMPH % 10.8 % (8-40); MCH 33.4 pg (25.7-33.7); MCHC 34.6 g/dl (32.0-36.0); MEAN CELL VOLUME 96.6 fl (80-96); MEAN PLT VOLUME 8.3 fl (7.5-11.1); MONO % 4.7 % (3.8-10.2); NEUT % 79.8 % (42.8-82.8); PLATELET COUNT 66 K/MM3 (134-434); RBC 3.18 M/mm3 (3.60-5.2); RDW 15.9 % (11.6-15.6); WHITE BLOOD COUNT 10.5 K/mm3 (4.0-10.0)
[2018-07-19 08:36] LABS: ALBUMIN 1.8 g/dl (3.4-5.0); ALK PHOS 246 U/L (45-117); ANION GAP 3 MMOL/L (8-16); BILIRUBIN,TOTAL 1.2 mg/dL (0.2-1); BLOOD UREA NITROGEN 20 mg/dL (7-18); CALCIUM 8.7 mg/dL (8.5-10.1); CHLORIDE 104 mmol/L (98-107); CO2 34 mmol/L (21-32); CREATININE 0.7 mg/dL (0.55-1.3); GLUCOSE,RANDOM 127 mg/dL (74-106); POTASSIUM 3.7 mmol/L (3.5-5.1); SGOT/AST 46 U/L (15-37); SGPT/ALT 20 U/L (13-61); SODIUM 140 mmol/L (136-145); TOT PROT 5.8 g/dl (6.4-8.2)
[2018-07-19] MEDS: LIDOCAINE 5% TOPICAL PATCH TP SCH ×2 (09:32→09:33)
[2018-07-19] MEDS: NYSTATIN 100,000 UNIT/GM TOPICAL CREAM 15 GM TUBE TP SCH ×2 (09:33→22:41)
[2018-07-19] MEDS: ZINC OXIDE 20% TOPICAL OINTMENT 30 GM TUBE TP SCH ×2 (09:33→22:42)
[2018-07-19] MEDS: POTASSIUM CHLORIDE ORAL LIQUID 20 MEQ/15 ML PO SCH ×2 (09:33→22:42)
[2018-07-19] MEDS: LOSARTAN POTASSIUM 50 MG TABLET (FP) PO SCH (09:34)
[2018-07-19] MEDS: predniSONE 20 MG TABLET (UD) PO SCH (09:34)
[2018-07-19] MEDS: ASPIRIN COATED 81 MG TABLET.EC PO SCH (09:34)
[2018-07-19] MEDS: ESCITALOPRAM OXALATE 10 MG TABLET (FP) PO SCH (09:34)
[2018-07-19] MEDS: NADOLOL 20 MG TABLET (FP) PO SCH (09:34)
[2018-07-19] MEDS: FLUDROCORTISONE ACETATE 0.1 MG TABLET (FP) PO SCH (09:34)
[2018-07-19] MEDS: PANTOPRAZOLE 40 MG TABLET (FP) PO SCH (09:34)
[2018-07-19] MEDS: FUROSEMIDE 40 MG TABLET (FP) PO SCH (09:34)
[2018-07-19] MEDS: HEPARIN NA (PORCINE) 5,000 UNITS/ML 1ML VIAL SQ SCH ×2 (09:34→22:40)
--- NOTE | 2018-07-19 10:47 | PN ---
Progress Note, Physician Chief Complaint: Respiratory distress History of Present Illness: Known to Dr Song's service Previous sputum culture showed Pseudomnas Aerugenosa - Current Medication List Current Medications: Active Medications Acetaminophen (Tylenol -) 650 mg PO Q6H PRN PRN Reason: FEVER Last Admin: 07/19/18 08:00 Dose: 650 mg Albuterol/Ipratropium (Duoneb -) 1 amp NEB Q6H PRN PRN Reason: SHORTNESS OF BREATH Albuterol/Ipratropium (Duoneb -) 1 amp NEB RTID [facility] Last Admin: 07/19/18 07:29 Dose: 1 amp Amino Acids (Prosource No Carb Liquid Pkt) 30 ml PO BID@0800,1730 [facility] Last Admin: 07/19/18 08:00 Dose: 30 ml Aspirin (Ecotrin -) 81 mg PO DAILY [facility] Last Admin: 07/19/18 09:34 Dose: 81 mg Atorvastatin Calcium (Lipitor -) 20 mg PO HS [facility] Last Admin: 07/18/18 23:00 Dose: 20 mg Carbidopa/Levodopa (Sinemet 25/100 -) 1 each PO TID [facility] Last Admin: 07/19/18 06:21 Dose: 1 each Escitalopram Oxalate (Lexapro -) 10 mg PO DAILY [facility] Last Admin: 07/19/18 09:34 Dose: 10 mg Fludrocortisone Acetate (Florinef -) 0.1 mg PO DAILY [facility] Last Admin: 07/19/18 09:34 Dose: 0.1 mg Furosemide (Lasix -) 40 mg PO DAILY [facility] Last Admin: 07/19/18 09:34 Dose: 40 mg Gabapentin (Neurontin -) 100 mg PO TID [facility] Last Admin: 07/19/18 06:21 Dose: 100 mg Heparin Sodium (Porcine) (Heparin -) 5,000 unit SQ BID [facility] Last Admin: 07/19/18 09:34 Dose: 5,000 unit Meropenem 1 gm/ Dextrose 100 mls @ 200 mls/hr IVPB Q8H-IV [facility] Last Admin: 07/19/18 01:49 Dose: 200 mls/hr Insulin Aspart (Novolog Vial Sliding Scale -) 1 vial SQ [facility]; Protocol Last Admin: 07/19/18 06:21 Dose: Not Given Insulin Detemir (Levemir Vial) 40 units SQ [facility] Last Admin: 03/12/19 23:00 Dose: 40 units Lidocaine (Lidoderm Patch -) 1 patch TP DAILY [facility] Last Admin: 07/19/18 09:32 Dose: 1 patch Lidocaine (Lidoderm Patch -) 1 patch TP DAILY [facility] Last Admin: 07/19/18 09:33 Dose: 1 patch Losartan Potassium (Cozaar -) 100 mg PO DAILY [facility] Last Admin: 07/19/18 09:34 Dose: 100 mg Melatonin (Melatonin) 5 mg PO HS PRN PRN Reason: INSOMNIA Last Admin: 07/18/18 23:14 Dose: 5 mg Miscellaneous (Lidoderm Patch Removal) 1 each MC DAILY@2200 [facility] Last Admin: 07/18/18 23:00 Dose: 1 each Miscellaneous (Lidoderm Patch Removal) 1 each MC DAILY@2200 [facility] Last Admin: 07/18/18 23:00 Dose: 1 each Multi-Ingredient Ointment (Zinc Oxide) 1 applic TP BID [facility] Last Admin: 07/19/18 09:33 Dose: 1 applic Nadolol (Corgard -) 20 mg PO DAILY [facility] Last Admin: 07/19/18 09:34 Dose: 20 mg Nystatin (Mycostatin Cream -) 1 applic TP BID [facility] Last Admin: 07/19/18 09:33 Dose: 1 applic Nystatin (Nystatin Oral Suspension -) 500,000 units PO Q6HPO [facility] Last Admin: 07/19/18 06:21 Dose: 500,000 units Pantoprazole Sodium (Protonix -) 40 mg PO DAILY [facility] Last Admin: 07/19/18 09:34 Dose: 40 mg Potassium Chloride (Potassium Chloride Oral Liquid) 40 meq PO BID [facility] Last Admin: 07/19/18 09:33 Dose: 40 meq Prednisone (Deltasone -) 20 mg PO DAILY [facility] Last Admin: 07/19/18 09:34 Dose: 20 mg - Objective Vital Signs: Vital Signs Temperature 98.3 F 07/19/18 09:39 Pulse Rate 94 H 07/19/18 09:39 Respiratory Rate 20 07/19/18 09:39 Blood Pressure 115/60 07/19/18 09:39 O2 Sat by Pulse Oximetry (%) 98 07/19/18 09:39 Constitutional: Yes: Well Nourished, No Distress, Calm Cardiovascular: Yes: Regular Rate and Rhythm Respiratory: Yes: Regular, On Nasal O2, Rhonchi (diffuse) Musculoskeletal: Yes: Muscle Weakness Edema: No Peripheral Pulses WNL: Yes Neurological: Yes: Alert, Oriented Psychiatric: Yes: Alert, Oriented Labs: CBC, BMP 07/19/18 07:45 07/19/18 07:45 Problem List - Problems (1) Pneumonia Assessment/Plan: -repeat sputum culture shows same: Microbiology 07/08/18 18:29 Blood - Peripheral Venous Blood Culture - Final NO GROWTH AFTER 5 DAYS INCUBATION 07/08/18 18:27 Blood - Peripheral Venous Blood Culture - Final NO GROWTH AFTER 5 DAYS INCUBATION 07/08/18 18:45 Sputum - Expectorated Gram Stain - Final 07/08/18 18:45 Sputum - Expectorated Sputum Culture - Final Pseudomonas Aeruginosa 07/08/18 20:30 Urine - Urine Clean Catch Urine Culture - Final NO GROWTH OBTAINED 07/08/18 20:30 Urine For Antigen Detection Legionella Antigen - Final 07/08/18 20:30 Urine For Antigen Detection Streptococcus pneumoniae Antigen (M - Final -IV abx-meropenem -On prednisone -afebrile Code(s): J18.9 - PNEUMONIA, UNSPECIFIED ORGANISM (2) Diabetes Assessment/Plan: -BGM AC HS -Insulin: levemir+ novolog -Also increase secondary to steroids -Increase levemir from 35 to 37 U -Diabetic diet -Last A1c 7.5 Code(s): E11.9 - TYPE 2 DIABETES MELLITUS WITHOUT COMPLICATIONS Qualifiers: Diabetes mellitus type: type 2 (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 -Seen by NS -Abdominal binder -Pain management -Physical therapy Code(s): S32.040A - WEDGE COMPRESSION FRACTURE OF FOURTH LUMBAR VERTEBRA, INIT (4) Fracture of ramus of right pubis with routine healing Assessment/Plan: -Inferior and superior -Seen by orthopedic surgery -conservative measurement -pain management -Physical therapy Code(s): S32.591D - OTH FRACTURE OF RIGHT PUBIS, SUBS FOR FX W ROUTN HEAL (5) Lumbar canal stenosis Assessment/Plan: -Seen by Neurosurgery -Physical therapy -Abdominal binder -Pain management-lidocaine patch with gabapentin Code(s): M48.061 - SPINAL STENOSIS, LUMBAR REGION WITHOUT NEUROGENIC IRVIN (6) Anxiety Assessment/Plan: -Seen by Psychiatry -On lexapro Code(s): F41.9 - ANXIETY DISORDER, UNSPECIFIED (7) Anemia Assessment/Plan: -stable -check iron studies and stool ob -monitor trend Code(s): D64.9 - ANEMIA, UNSPECIFIED Assessment/Plan see problem list physical therapy-poor performance
[2018-07-19] MEDS ORDERED: INSULIN (NOVOLOG) ASPART 100 UNITS/ML 10ML VIAL ONE ×2 (11:33→22:25)
--- NOTE | 2018-07-19 13:27 | PN ---
Progress Note (short form) - Note Progress Note: PULMONARY Breathing about the same. +nonproductive cough. No fevers or chills. Vital Signs Period Temp Pulse Resp BP Sys/Donovan Pulse Ox Last 24 Hr 97.1 F-98.6 F 73-94 20-21 114-134/53-75 98-98 Gen: mildly tachypneic with speaking Heart: RRR Lung: bibasilar rales, scattered rhonchi Abd: soft, nontender Ext: no edema CBC, BMP 07/19/18 07:45 07/19/18 07:45 Active Medications Acetaminophen (Tylenol -) 650 mg PO Q6H PRN PRN Reason: FEVER Last Admin: 07/19/18 08:00 Dose: 650 mg Albuterol/Ipratropium (Duoneb -) 1 amp NEB Q6H PRN PRN Reason: SHORTNESS OF BREATH Albuterol/Ipratropium (Duoneb -) 1 amp NEB RTID [facility] Last Admin: 07/19/18 07:29 Dose: 1 amp Amino Acids (Prosource No Carb Liquid Pkt) 30 ml PO BID@0800,1730 [facility] Last Admin: 07/19/18 08:00 Dose: 30 ml Aspirin (Ecotrin -) 81 mg PO DAILY [facility] Last Admin: 07/19/18 09:34 Dose: 81 mg Atorvastatin Calcium (Lipitor -) 20 mg PO HS [facility] Last Admin: 07/18/18 23:00 Dose: 20 mg Carbidopa/Levodopa (Sinemet 25/100 -) 1 each PO TID [facility] Last Admin: 07/19/18 06:21 Dose: 1 each Escitalopram Oxalate (Lexapro -) 10 mg PO DAILY [facility] Last Admin: 07/19/18 09:34 Dose: 10 mg Fludrocortisone Acetate (Florinef -) 0.1 mg PO DAILY [facility] Last Admin: 07/19/18 09:34 Dose: 0.1 mg Furosemide (Lasix -) 40 mg PO DAILY [facility] Last Admin: 07/19/18 09:34 Dose: 40 mg Gabapentin (Neurontin -) 100 mg PO TID [facility] Last Admin: 07/19/18 06:21 Dose: 100 mg Heparin Sodium (Porcine) (Heparin -) 5,000 unit SQ BID [facility] Last Admin: 07/19/18 09:34 Dose: 5,000 unit Meropenem 1 gm/ Dextrose 100 mls @ 200 mls/hr IVPB Q8H-IV [facility] Last Admin: 07/19/18 11:09 Dose: Not Given Insulin Aspart (Novolog Vial Sliding Scale -) 1 vial SQ ACHS [facility]; Protocol Last Admin: 07/19/18 11:31 Dose: 4 units Insulin Detemir (Levemir Vial) 40 units SQ HS [facility] Last Admin: 07/18/18 23:00 Dose: 40 units Lidocaine (Lidoderm Patch -) 1 patch TP DAILY [facility] Last Admin: 07/19/18 09:32 Dose: 1 patch Lidocaine (Lidoderm Patch -) 1 patch TP DAILY [facility] Last Admin: 07/19/18 09:33 Dose: 1 patch Losartan Potassium (Cozaar -) 100 mg PO DAILY [facility] Last Admin: 07/19/18 09:34 Dose: 100 mg Melatonin (Melatonin) 5 mg PO HS PRN PRN Reason: INSOMNIA Last Admin: 07/18/18 23:14 Dose: 5 mg Miscellaneous (Lidoderm Patch Removal) 1 each MC DAILY@2200 [facility] Last Admin: 07/18/18 23:00 Dose: 1 each Miscellaneous (Lidoderm Patch Removal) 1 each MC DAILY@2200 [facility] Last Admin: 07/18/18 23:00 Dose: 1 each Multi-Ingredient Ointment (Zinc Oxide) 1 applic TP BID [facility] Last Admin: 07/19/18 09:33 Dose: 1 applic Nadolol (Corgard -) 20 mg PO DAILY [facility] Last Admin: 07/19/18 09:34 Dose: 20 mg Nystatin (Mycostatin Cream -) 1 applic TP BID [facility] Last Admin: 07/19/18 09:33 Dose: 1 applic Nystatin (Nystatin Oral Suspension -) 500,000 units PO Q6HPO [facility] Last Admin: 07/19/18 11:58 Dose: 500,000 units Pantoprazole Sodium (Protonix -) 40 mg PO DAILY [facility] Last Admin: 07/19/18 09:34 Dose: 40 mg Potassium Chloride (Potassium Chloride Oral Liquid) 40 meq PO BID [facility] Last Admin: 07/19/18 09:33 Dose: 40 meq Prednisone (Deltasone -) 20 mg PO DAILY [facility] Last Admin: 07/19/18 09:34 Dose: 20 mg A/P Pneumonia Atypical Mycobacteria Lumbar Compression Fracture CAD h/o CVA Liver Cirrhosis HTN Hyperlipidemia Parkinsons Disease DM - continue antibiotics per ID - slow prednisone taper - inhaled bronchodilators - O2 to keep Spo2 >90% - replete lytes - rehab/PT - DVT prophylaxis
--- NOTE | 2018-07-19 16:50 | DS ---
Physical Examination Vital Signs: Vital Signs Temperature 97.9 F 07/19/18 14:00 Pulse Rate 79 07/19/18 14:00 Respiratory Rate 18 07/19/18 14:00 Blood Pressure 112/66 07/19/18 14:00 O2 Sat by Pulse Oximetry (%) 98 07/19/18 09:39 Findings/Remarks: The patient is a 77-year-old female with a past medical history significant for CAD (with stents), DM, HTN, anemia, CVA (L-sided residual), and breast CA presents to the emergency department from [facility] via ambulance with flushed skin. Per CA, around 11:18 am the patient complained for chest pain and the nurse reported the patient's face looked red and flushed. The patient was noted to be desaturated to 88% and was placed on non-rebreather. The patient was discharged from the hospital yesterday, was admitted to the ICU. The patient sputum was positive for Pseudomonas and was receiving treatment for pneumonia. The patient was discharged to [facility] with a prescription for Ceftazidime. The patient received her first dose of abx at 6: 00 am today. During her stay she was evaluated by ID, was treated with Meropenem for 10 days Constitutional: Yes: Well Nourished, No Distress, Calm Cardiovascular: Yes: Regular Rate and Rhythm Respiratory: Yes: Regular, Cough, Rales (diffuse) Gastrointestinal: Yes: Normal Bowel Sounds, Soft Musculoskeletal: Yes: Muscle Weakness Edema: No Peripheral Pulses WNL: Yes Neurological: Yes: Alert, Pre-Existing Deficit Psychiatric: Yes: Alert Labs: CBC, BMP 07/19/18 07:45 07/19/18 07:45 Discharge Summary Reason For Visit: PNEUMONIA Current Active Problems Anemia (Acute) Compression fracture of L4 vertebra (Acute) Fracture of ramus of right pubis with routine healing (Acute) Hip pain, right (Acute) Hypokalemia (Acute) Leg pain (Acute) Lumbar canal stenosis (Acute) Pneumonia (Acute) Hospital Course: Laboratory Last Values WBC 10.5 K/mm3 (4.0-10.0) H 07/19/18 07:45 RBC 3.18 M/mm3 (3.60-5.2) L 07/19/18 07:45 Hgb 10.6 GM/dL (10.7-15.3) L 07/19/18 07:45 Hct 30.7 % (32.4-45.2) L 07/19/18 07:45 MCV 96.6 fl (80-96) H 07/19/18 07:45 MCH 33.4 pg (25.7-33.7) 07/19/18 07:45 MCHC 34.6 g/dl (32.0-36.0) 07/19/18 07:45 RDW 15.9 % (11.6-15.6) H 07/19/18 07:45 Plt Count 66 K/MM3 (134-434) L 07/19/18 07:45 MPV 8.3 fl (7.5-11.1) 07/19/18 07:45 Absolute Neuts (auto) 8.4 K/mm3 (1.5-8.0) H 07/19/18 07:45 Neutrophils % (Manual) 86.9 % (42.8-82.8) H 07/08/18 13:20 Band Neutrophils % 2.0 % 07/08/18 13:20 Neutrophils % 79.8 % (42.8-82.8) 07/19/18 07:45 Lymphocytes % (Manual) 6.1 % (8-40) L D 07/08/18 13:20 Lymphocytes % 10.8 % (8-40) 07/19/18 07:45 Monocytes % (Manual) 2 % (3.8-10.2) L 07/08/18 13:20 Eosinophils % (Manual) 0.0 % (0-4.5) 07/08/18 13:20 Monocytes % 4.7 % (3.8-10.2) 07/19/18 07:45 Basophils % (Manual) 0.0 % (0-2.0) 07/08/18 13:20 Eosinophils % 4.4 % (0-4.5) 07/19/18 07:45 Myelocytes % (Man) 0 % (0-2) 07/08/18 13:20 Basophils % 0.3 % (0-2.0) 07/19/18 07:45 Promyelocytes % (Man) 0 % (0-2) 07/08/18 13:20 Blast Cells % (Manual) 0 % (0-0) 07/08/18 13:20 Nucleated RBC % 0 % (0-0) 07/19/18 07:45 Metamyelocytes 0 % (0-2) 07/08/18 13:20 Hypochromia 0 07/08/18 13:20 Toxic Granulation 2+ 07/08/18 13:20 Platelet Estimate Decreased 07/08/18 13:20 Platelet Comment Present 07/08/18 13:20 Polychromasia 0 07/08/18 13:20 Poikilocytosis 3+ 07/08/18 13:20 Anisocytosis 2+ 07/08/18 13:20 Microcytosis 1+ 07/08/18 13:20 Macrocytosis 0 07/08/18 13:20 Spherocytes 2+ 07/08/18 13:20 Tear Drop Cells 1+ 07/08/18 13:20 Sodium 140 mmol/L (136-145) 07/19/18 07:45 Potassium 3.7 mmol/L (3.5-5.1) 07/19/18 07:45 Chloride 104 mmol/L (98-107) 07/19/18 07:45 Carbon Dioxide 34 mmol/L (21-32) H 07/19/18 07:45 Anion Gap 3 MMOL/L (8-16) L 07/19/18 07:45 BUN 20 mg/dL (7-18) H 07/19/18 07:45 Creatinine 0.7 mg/dL (0.55-1.3) 07/19/18 07:45 Creat Clearance w eGFR > 60 (>60) 07/19/18 07:45 POC Glucometer 221 UNITS (80-120) 07/19/18 11:23 Random Glucose 127 mg/dL (74-106) H 07/19/18 07:45 Hemoglobin A1c % 7.5 % (4.2-6.3) H 07/12/18 17:00 Lactic Acid 1.6 mmol/L (0.4-2.0) 07/09/18 03:06 Calcium 8.7 mg/dL (8.5-10.1) 07/19/18 07:45 Phosphorus 2.8 mg/dL (2.5-4.9) 07/08/18 13:20 Magnesium 2.4 mg/dL (1.8-2.4) 07/08/18 13:20 Iron 64 ug/dL (27-139) 07/18/18 11:45 TIBC 209 ug/dL (250-450) L 07/18/18 11:45 Iron Saturation 31 % (15-55) 07/18/18 11:45 Ferritin 145.2 ng/ml (8-388) 07/18/18 07:00 Total Bilirubin 1.2 mg/dL (0.2-1) H 07/19/18 07:45 AST 46 U/L (15-37) H 07/19/18 07:45 ALT 20 U/L (13-61) 07/19/18 07:45 Alkaline Phosphatase 246 U/L (45-117) H 07/19/18 07:45 Troponin I 0.04 ng/ml (0.00-0.05) 07/08/18 13:20 B-Natriuretic Peptide 533.5 pg/ml (5-450) H 07/08/18 13:20 Total Protein 5.8 g/dl (6.4-8.2) L 07/19/18 07:45 Albumin 1.8 g/dl (3.4-5.0) L 07/19/18 07:45 Urine Color Yellow 07/08/18 20:30 Urine Appearance Clear 07/08/18 20:30 Urine pH 7.0 (5.0-8.0) 07/08/18 20:30 Ur Specific Norco 1.012 (1.010-1.035) 07/08/18 20:30 Urine Protein Negative (NEGATIVE) 07/08/18 20:30 Urine Glucose (UA) Negative (NEGATIVE) 07/08/18 20:30 Urine Ketones Negative (NEGATIVE) 07/08/18 20:30 Urine Blood Negative (NEGATIVE) 07/08/18 20:30 Urine Nitrite Negative (NEGATIVE) 07/08/18 20:30 Urine Bilirubin Negative (<2.0 mg/dL) 07/08/18 20:30 Urine Urobilinogen 2.0 mg/dL (0.2-1.0) H 07/08/18 20:30 Ur Leukocyte Esterase Negative (NEGATIVE) 07/08/18 20:30 Aspergillus Antibody 0.03 Index (0.00-0.49) 07/12/18 06:00 Beta-(1,3)-D-Glucan < 31 pg/mL (<80) 07/12/18 06:00 Microbiology 07/08/18 18:29 Blood - Peripheral Venous Blood Culture - Final NO GROWTH AFTER 5 DAYS INCUBATION 07/08/18 18:27 Blood - Peripheral Venous Blood Culture - Final NO GROWTH AFTER 5 DAYS INCUBATION 07/08/18 18:45 Sputum - Expectorated Gram Stain - Final 07/08/18 18:45 Sputum - Expectorated Sputum Culture - Final Pseudomonas Aeruginosa 07/08/18 20:30 Urine - Urine Clean Catch Urine Culture - Final NO GROWTH OBTAINED 07/08/18 20:30 Urine For Antigen Detection Legionella Antigen - Final 07/08/18 20:30 Urine For Antigen Detection Streptococcus pneumoniae Antigen (M - Final Vital Signs Temp 97.9 F 07/19/18 14:00 Pulse 79 07/19/18 14:00 Resp 18 07/19/18 14:00 BP 112/66 07/19/18 14:00 Pulse Ox 98 07/19/18 09:39 Intake & Output 07/18/18 07/19/18 07/19/18 23:59 11:59 23:59 Intake Total 550 600 400 Balance 550 600 400 Intake: IVPB 300 100 Oral 250 500 400 Other: Voiding Method Bedpan Bedpan Bedpan # Unmeasured Voids Void 6 3 1 Bowel Movement Yes Yes: LARGE SOFT BOWEL M. # Bowel Movements 4 1 Body Mass Index (BMI) 24.2 Condition: Stable - Instructions Diet, Activity, Other Instructions: Repeat CBC,CMP in 1 week Follow up at [facility] [place] [facility] [place] for Pseudomonas MAC Disposition: [facility] HOME FACILITY - Home Medications Comprehensive Discharge Medication List: Ambulatory Orders Aspirin [ASA -] 81 mg PO DAILY 10/09/14 Nadolol [Corgard -] 20 mg PO DAILY tablet 09/05/17 Escitalopram Oxalate [Lexapro -] 10 mg PO DAILY 01/24/18 Fludrocortisone Acetate [Florinef -] 0.1 mg PO DAILY 01/24/18 Pantoprazole Sodium [Protonix] 40 mg PO DAILY 01/24/18 Atorvastatin Calcium [Lipitor] 10 mg PO HS 05/07/18 Nortriptyline HCl [Pamelor -] 25 mg PO DAILY 05/07/18 Acetaminophen [Tylenol .Regular Strength -] 650 mg PO Q6H PRN tablet 05/13/18 Budesonide [Pulmicort 0.5 mg Nebulizer -] 1 amp NEB RBID amp 05/13/18 Carbidopa/Levodopa 25/100 [Sinemet 25/100 -] 1 each PO TID tablet 05/13/18 Furosemide [Lasix] 40 mg PO BID #60 tablet 05/13/18 Gabapentin [Neurontin -] 100 mg PO TID capsule 05/13/18 Heparin - 5,000 unit SQ BID vial 05/13/18 Losartan Potassium [Cozaar -] 25 mg PO DAILY tablet 05/13/18 Ipratropium/Albuterol Sulfate [Iprat-Albut 0.5-3(2.5) mg/3 ml] 3 ml IH Q6H 06/28 Zinc Oxide 20% Topical Oint 454 gm NR ASDIR 06/28/18 Ceftazidime Pentahydrate [Fortaz (Restricted To Id) -] 1 gm IVPB Q8H-IV #30 vial 07/07/18 Guaifenesin/D-Methorphan Hb [Diabetic Tussin Dm -] 10 ml PO Q4H PRN ml Insulin (Levemir) [Levemir Vial] 35 units SQ HS units 07/07/18 Nystatin Cream [Mycostatin Cream -] 1 applic TP BID applic 07/07/18 Potassium Chloride [K-Dur -] 40 meq PO DAILY tablet.er 07/07/18 Prednisone 10 mg PO ASDIR #32 tablet 07/07/18 Insulin Lispro [Humalog] 0 unit SQ ASDIR 07/08/18 Acetaminophen [Tylenol .Regular Strength -] 650 mg PO Q6H PRN tablet 07/19/18 Albuterol 2.5/Ipratropium 0.5 [Duoneb -] 1 amp NEB Q6H PRN amp 07/19/18 Albuterol 2.5/Ipratropium 0.5 [Duoneb -] 1 amp NEB RTID amp 07/19/18 Amino Acids/Protein Hydrolys [Prosource No Carb Liquid Pkt] 30 ml PO BID@0800, 1730 packet 07/19/18 Aspirin Coated [Ecotrin -] 81 mg PO DAILY tablet.ec 07/19/18 Atorvastatin Ca [Lipitor] 20 mg PO HS tablet 07/19/18 Carbidopa/Levodopa 25/100 [Sinemet 25/100 -] 1 each PO TID tablet 07/19/18 Escitalopram Oxalate [Lexapro -] 10 mg PO DAILY tablet 07/19/18 Fludrocortisone Acetate [Florinef -] 0.1 mg PO DAILY tablet 07/19/18 Furosemide [Lasix -] 40 mg PO DAILY tablet 07/19/18 Gabapentin [Neurontin -] 200 mg PO TID capsule 07/19/18 Heparin - 5,000 unit SQ BID vial 07/19/18 Insulin (Levemir) [Levemir Vial] 37 units SQ HS units 07/19/18 Insulin (Levemir) [Levemir Vial] 40 units SQ HS units 07/19/18 Insulin Sliding Scale [Novolog Vial Sliding Scale -] 1 vial SQ ACHS units 07/19 Lidocaine 5% Patch [Lidoderm -] 1 patch TP DAILY patch 07/19/18 Losartan Potassium [Cozaar -] 100 mg PO DAILY tablet 07/19/18 Melatonin 5 mg PO HS PRN tab 07/19/18 Nadolol [Corgard -] 20 mg PO DAILY tablet 07/19/18 Nystatin Cream [Mycostatin Cream -] 1 applic TP BID applic 07/19/18 Pantoprazole Sodium [Protonix -] 40 mg PO DAILY tablet.ec 07/19/18 Potassium Chloride [Potassium Chloride Oral Liquid] 40 meq PO BID cup 07/19/18 Zinc Oxide 1 applic TP BID tube 07/19/18 predniSONE [Deltasone -] 20 mg PO DAILY tablet 07/19/18
--- NOTE | 2018-07-19 22:10 | PN ---
Progress Note (short form) - Note Progress Note: Patient sitting in bed in NAD. No complaints of pain, however, she relates significant pain upon standing. Only minimal efforts with PT. Patient on Oxygen by nasal cannula today. Patient is stable, however, not ambulating. - Consider TLSO if patient cannot ambulate with abdominal binder alone - Continue PT - GI/DVT prophylaxis - Patient ready for SNF/Rehab from Neurosurgery standpoint
[2018-07-19] MEDS: INSULIN (LEVEMIR) 100 UNITS/ML UNITS SQ SCH (22:41)
[2018-07-19] MEDS: LIDOCAINE PATCH REMOVAL MC SCH ×2 (22:41)
[2018-07-19] MEDS: ATORVASTATIN CA 20 MG TABLET (FP) PO SCH (22:41)
[2018-07-19] MEDS: MELATONIN 5 MG TABLETS PO PRN (22:42)
[2018-07-20] MEDS: NYSTATIN 500,000 UNITS/5 ML SUSPENSION PO SCH ×3 (01:13→13:26)
[2018-07-20] MEDS: GABAPENTIN 100 MG CAPSULE (FP) PO SCH ×2 (06:26→13:26)
[2018-07-20] MEDS: CARBIDOPA/LEVODOPA 25/100 TABLET (FP) PO SCH ×2 (06:27→13:27)
[2018-07-20] MEDS: INSULIN SLIDING SCALE (NOVOLOG) 1 VIAL SQ SCH ×2 (06:27→12:06)
[2018-07-20] MEDS: ALBUTEROL SO4 2.5/IPRATROPIUM 0.5 INH SOL 3 ML VIAL.NEB. NEB SCH ×2 (07:44→14:00)
[2018-07-20 07:57] LABS: ANION GAP 3 MMOL/L (8-16); BLOOD UREA NITROGEN 23 mg/dL (7-18); CALCIUM 8.6 mg/dL (8.5-10.1); CHLORIDE 106 mmol/L (98-107); CO2 33 mmol/L (21-32); CREATININE 0.6 mg/dL (0.55-1.3); GLUCOSE,RANDOM 127 mg/dL (74-106); SODIUM 142 mmol/L (136-145)
[2018-07-20] MEDS: ACETAMINOPHEN 325 MG TABLET (FP) PO PRN ×2 (09:36→14:44)
[2018-07-20] MEDS: AMINO ACIDS/PROTEIN HYDROLYS 30 ML LIQUID.PKT PO SCH (09:36)
[2018-07-20] MEDS: PANTOPRAZOLE 40 MG TABLET (FP) PO SCH (09:37)
[2018-07-20] MEDS: FLUDROCORTISONE ACETATE 0.1 MG TABLET (FP) PO SCH (09:38)
[2018-07-20] MEDS: LOSARTAN POTASSIUM 50 MG TABLET (FP) PO SCH (09:38)
[2018-07-20] MEDS: predniSONE 20 MG TABLET (UD) PO SCH (09:38)
[2018-07-20] MEDS: ESCITALOPRAM OXALATE 10 MG TABLET (FP) PO SCH (09:38)
[2018-07-20] MEDS: FUROSEMIDE 40 MG TABLET (FP) PO SCH (09:38)
[2018-07-20] MEDS: LIDOCAINE 5% TOPICAL PATCH TP SCH ×2 (09:38)
[2018-07-20] MEDS: NADOLOL 20 MG TABLET (FP) PO SCH (09:38)
[2018-07-20] MEDS: HEPARIN NA (PORCINE) 5,000 UNITS/ML 1ML VIAL SQ SCH (09:39)
[2018-07-20] MEDS: ASPIRIN COATED 81 MG TABLET.EC PO SCH (09:39)
[2018-07-20] MEDS: NYSTATIN 100,000 UNIT/GM TOPICAL CREAM 15 GM TUBE TP SCH (09:39)
[2018-07-20] MEDS: POTASSIUM CHLORIDE ORAL LIQUID 20 MEQ/15 ML PO SCH (09:39)
[2018-07-20] MEDS: ZINC OXIDE 20% TOPICAL OINTMENT 30 GM TUBE TP SCH (09:39)
--- NOTE | 2018-07-20 10:06 | PN ---
Progress Note (short form) - Note Progress Note: PULMONARY Breathing about the same. No fevers or chills. Gen: less tachypneic with speaking Heart: RRR Lung: bibasilar rales, scattered rhonchi Abd: soft, nontender Ext: no edema CBC, BMP 07/19/18 07:45 07/20/18 06:30 Active Medications Acetaminophen (Tylenol -) 650 mg PO Q6H PRN PRN Reason: FEVER Last Admin: 07/20/18 09:36 Dose: 650 mg Albuterol/Ipratropium (Duoneb -) 1 amp NEB Q6H PRN PRN Reason: SHORTNESS OF BREATH Albuterol/Ipratropium (Duoneb -) 1 amp NEB RTID [facility] Last Admin: 07/20/18 07:44 Dose: 1 amp Amino Acids (Prosource No Carb Liquid Pkt) 30 ml PO BID@0800,1730 [facility] Last Admin: 07/20/18 09:36 Dose: 30 ml Aspirin (Ecotrin -) 81 mg PO DAILY [facility] Last Admin: 07/20/18 09:39 Dose: 81 mg Atorvastatin Calcium (Lipitor -) 20 mg PO HS [facility] Last Admin: 07/19/18 22:41 Dose: 20 mg Carbidopa/Levodopa (Sinemet 25/100 -) 1 each PO TID [facility] Last Admin: 07/20/18 06:27 Dose: 1 each Escitalopram Oxalate (Lexapro -) 10 mg PO DAILY [facility] Last Admin: 07/20/18 09:38 Dose: 10 mg Fludrocortisone Acetate (Florinef -) 0.1 mg PO DAILY [facility] Last Admin: 07/20/18 09:38 Dose: 0.1 mg Furosemide (Lasix -) 40 mg PO DAILY [facility] Last Admin: 07/20/18 09:38 Dose: 40 mg Gabapentin (Neurontin -) 100 mg PO TID [facility] Last Admin: 07/20/18 06:26 Dose: 100 mg Heparin Sodium (Porcine) (Heparin -) 5,000 unit SQ BID [facility] Last Admin: 07/20/18 09:39 Dose: 5,000 unit Insulin Aspart (Novolog Vial Sliding Scale -) 1 vial SQ [facility]; Protocol Last Admin: 07/20/18 06:27 Dose: Not Given Insulin Detemir (Levemir Vial) 40 units SQ [facility] Last Admin: 07/19/18 22:41 Dose: 40 units Lidocaine (Lidoderm Patch -) 1 patch TP DAILY [facility] Last Admin: 07/20/18 09:38 Dose: 1 patch Lidocaine (Lidoderm Patch -) 1 patch TP DAILY [facility] Last Admin: 07/20/18 09:38 Dose: 1 patch Losartan Potassium (Cozaar -) 100 mg PO DAILY [facility] Last Admin: 07/20/18 09:38 Dose: 100 mg Melatonin (Melatonin) 5 mg PO HS PRN PRN Reason: INSOMNIA Last Admin: 07/19/18 22:42 Dose: 5 mg Miscellaneous (Lidoderm Patch Removal) 1 each MC DAILY@0 [facility] Last Admin: 07/19/18 22:41 Dose: 1 each Miscellaneous (Lidoderm Patch Removal) 1 each MC DAILY@0 [facility] Last Admin: 07/19/18 22:41 Dose: 1 each Multi-Ingredient Ointment (Zinc Oxide) 1 applic TP BID [facility] Last Admin: 07/20/18 09:39 Dose: 1 applic Nadolol (Corgard -) 20 mg PO DAILY [facility] Last Admin: 07/20/18 09:38 Dose: 20 mg Nystatin (Mycostatin Cream -) 1 applic TP BID [facility] Last Admin: 07/20/18 09:39 Dose: 1 applic Nystatin (Nystatin Oral Suspension -) 500,000 units PO Q6HPO [facility] Last Admin: 07/20/18 06:26 Dose: 500,000 units Pantoprazole Sodium (Protonix -) 40 mg PO DAILY [facility] Last Admin: 07/20/18 09:37 Dose: 40 mg Potassium Chloride (Potassium Chloride Oral Liquid) 40 meq PO BID [facility] Last Admin: 07/20/18 09:39 Dose: 40 meq Prednisone (Deltasone -) 20 mg PO DAILY [facility] Last Admin: 07/20/18 09:38 Dose: 20 mg A/P Pneumonia Atypical Mycobacteria Lumbar Compression Fracture CAD h/o CVA Liver Cirrhosis HTN Hyperlipidemia Parkinsons Disease DM - continue antibiotics per ID - slow prednisone taper - inhaled bronchodilators - O2 to keep Spo2 >90% - replete lytes - rehab/PT - DVT prophylaxis - outpt f/u at [facility] [place]
[2018-07-20 12:11] LABS: HEMATOCRIT 31.1 % (32.4-45.2); HEMOGLOBIN 10.8 GM/dL (10.7-15.3); MCH 33.8 pg (25.7-33.7); MCHC 34.7 g/dl (32.0-36.0); MEAN CELL VOLUME 97.2 fl (80-96); MEAN PLT VOLUME 8.5 fl (7.5-11.1); PLATELET COUNT 72 K/MM3 (134-434); RBC 3.19 M/mm3 (3.60-5.2); RDW 16.1 % (11.6-15.6)
--- NOTE | 2018-07-20 12:35 | PN ---
Progress Note (short form) - Note Progress Note: Patient eating breakfast in no acute distress. Awaiting TLSO
[2018-07-20 12:42] LABS: ALBUMIN 1.9 g/dl (3.4-5.0); ALK PHOS 289 U/L (45-117); ANION GAP 0 MMOL/L (8-16); BILIRUBIN,TOTAL 1.1 mg/dL (0.2-1); BLOOD UREA NITROGEN 22 mg/dL (7-18); CALCIUM 8.7 mg/dL (8.5-10.1); CHLORIDE 106 mmol/L (98-107); CO2 34 mmol/L (21-32); CREATININE 0.6 mg/dL (0.55-1.3); GLUCOSE,RANDOM 158 mg/dL (74-106); SGOT/AST 58 U/L (15-37); SGPT/ALT 19 U/L (13-61); SODIUM 139 mmol/L (136-145); TOT PROT 5.9 g/dl (6.4-8.2)
--- NOTE | 2018-07-20 13:47 | PN ---
Progress Note, Physician Chief Complaint: PNA compression fracture L1-L4 History of Present Illness: Previous notes and events reviewed awake and alert NAD PICC line removed without adverse effects patient is waiting to be transferred back to SNF - Current Medication List Current Medications: Active Medications Acetaminophen (Tylenol -) 650 mg PO Q6H PRN PRN Reason: FEVER Last Admin: 07/20/18 09:36 Dose: 650 mg Albuterol/Ipratropium (Duoneb -) 1 amp NEB Q6H PRN PRN Reason: SHORTNESS OF BREATH Albuterol/Ipratropium (Duoneb -) 1 amp NEB RTID [facility] Last Admin: 07/20/18 07:44 Dose: 1 amp Amino Acids (Prosource No Carb Liquid Pkt) 30 ml PO BID@0800,1730 [facility] Last Admin: 07/20/18 09:36 Dose: 30 ml Aspirin (Ecotrin -) 81 mg PO DAILY [facility] Last Admin: 07/20/18 09:39 Dose: 81 mg Atorvastatin Calcium (Lipitor -) 20 mg PO HS [facility] Last Admin: 07/19/18 22:41 Dose: 20 mg Carbidopa/Levodopa (Sinemet 25/100 -) 1 each PO TID [facility] Last Admin: 07/20/18 13:27 Dose: 1 each Escitalopram Oxalate (Lexapro -) 10 mg PO DAILY [facility] Last Admin: 07/20/18 09:38 Dose: 10 mg Fludrocortisone Acetate (Florinef -) 0.1 mg PO DAILY [facility] Last Admin: 07/20/18 09:38 Dose: 0.1 mg Furosemide (Lasix -) 40 mg PO DAILY [facility] Last Admin: 07/20/18 09:38 Dose: 40 mg Gabapentin (Neurontin -) 100 mg PO TID [facility] Last Admin: 07/20/18 13:26 Dose: 100 mg Heparin Sodium (Porcine) (Heparin -) 5,000 unit SQ BID [facility] Last Admin: 07/20/18 09:39 Dose: 5,000 unit Insulin Aspart (Novolog Vial Sliding Scale -) 1 vial SQ ACHS [facility]; Protocol Last Admin: 07/20/18 12:06 Dose: Not Given Insulin Detemir (Levemir Vial) 40 units SQ HS [facility] Last Admin: 07/19/18 22:41 Dose: 40 units Lidocaine (Lidoderm Patch -) 1 patch TP DAILY [facility] Last Admin: 07/20/18 09:38 Dose: 1 patch Lidocaine (Lidoderm Patch -) 1 patch TP DAILY [facility] Last Admin: 07/20/18 09:38 Dose: 1 patch Losartan Potassium (Cozaar -) 100 mg PO DAILY [facility] Last Admin: 07/20/18 09:38 Dose: 100 mg Melatonin (Melatonin) 5 mg PO HS PRN PRN Reason: INSOMNIA Last Admin: 07/19/18 22:42 Dose: 5 mg Miscellaneous (Lidoderm Patch Removal) 1 each MC DAILY@2200 [facility] Last Admin: 07/19/18 22:41 Dose: 1 each Miscellaneous (Lidoderm Patch Removal) 1 each MC DAILY@2200 [facility] Last Admin: 07/19/18 22:41 Dose: 1 each Multi-Ingredient Ointment (Zinc Oxide) 1 applic TP BID [facility] Last Admin: 07/20/18 09:39 Dose: 1 applic Nadolol (Corgard -) 20 mg PO DAILY [facility] Last Admin: 07/20/18 09:38 Dose: 20 mg Nystatin (Mycostatin Cream -) 1 applic TP BID [facility] Last Admin: 07/20/18 09:39 Dose: 1 applic Nystatin (Nystatin Oral Suspension -) 500,000 units PO Q6HPO [facility] Last Admin: 07/20/18 13:26 Dose: 500,000 units Pantoprazole Sodium (Protonix -) 40 mg PO DAILY [facility] Last Admin: 07/20/18 09:37 Dose: 40 mg Potassium Chloride (Potassium Chloride Oral Liquid) 40 meq PO BID [facility] Last Admin: 07/20/18 09:39 Dose: 40 meq Prednisone (Deltasone -) 20 mg PO DAILY [facility] Last Admin: 07/20/18 09:38 Dose: 20 mg - Objective Vital Signs: Vital Signs Temperature 97.9 F 07/20/18 10:00 Pulse Rate 92 H 07/20/18 10:00 Respiratory Rate 20 07/20/18 10:00 Blood Pressure 123/58 L 07/20/18 10:00 O2 Sat by Pulse Oximetry (%) 98 07/19/18 09:39 Constitutional: Yes: Well Nourished, No Distress, Calm Eyes: Yes: Conjunctiva Clear HENT: Yes: Atraumatic Cardiovascular: Yes: Regular Rate and Rhythm Respiratory: Yes: Regular, CTA Bilaterally Gastrointestinal: Yes: Normal Bowel Sounds, Soft Genitourinary: Yes: Incontinence Musculoskeletal: Yes: Muscle Weakness Extremities: Yes: WNL Edema: No Neurological: Yes: Alert, Pre-Existing Deficit Psychiatric: Yes: Alert Labs: CBC, BMP 07/20/18 11:30 07/20/18 11:30 Microbiology 07/08/18 18:29 Blood - Peripheral Venous Blood Culture - Final NO GROWTH AFTER 5 DAYS INCUBATION 07/08/18 18:27 Blood - Peripheral Venous Blood Culture - Final NO GROWTH AFTER 5 DAYS INCUBATION 07/08/18 18:45 Sputum - Expectorated Gram Stain - Final 07/08/18 18:45 Sputum - Expectorated Sputum Culture - Final Pseudomonas Aeruginosa 07/08/18 20:30 Urine - Urine Clean Catch Urine Culture - Final NO GROWTH OBTAINED 07/08/18 20:30 Urine For Antigen Detection Legionella Antigen - Final 07/08/18 20:30 Urine For Antigen Detection Streptococcus pneumoniae Antigen (M - Final Problem List - Problems (1) Compression fracture of L4 vertebra Assessment/Plan: -neurosurgery on board -continue with abdominal binder -pain management -Lumbar CT scan reviewed -PT Code(s): S32.040A - WEDGE COMPRESSION FRACTURE OF FOURTH LUMBAR VERTEBRA, INIT (2) Hypokalemia Assessment/Plan: -resolved Code(s): E87.6 - HYPOKALEMIA (3) Pneumonia Assessment/Plan: -ID and pulmonary on board -completed course of ABT -sputum culture positive with pseudomonas -continue with duo neb tx -continue with prednisone Code(s): J18.9 - PNEUMONIA, UNSPECIFIED ORGANISM (4) Anxiety Assessment/Plan: -continue with lexapro Code(s): F41.9 - ANXIETY DISORDER, UNSPECIFIED (5) Diabetes Assessment/Plan: -BGM ACHS -continue with levemir, ISS -diabetic diet -HgA1c 7.5% Code(s): E11.9 - TYPE 2 DIABETES MELLITUS WITHOUT COMPLICATIONS Qualifiers: Diabetes mellitus type: type 2 (6) Hypertension Assessment/Plan: -continue with nadolol and lasix Code(s): I10 - ESSENTIAL (PRIMARY) HYPERTENSION (7) Hip pain, right Assessment/Plan: -xray ordered -pain management Code(s): M25.551 - PAIN IN RIGHT HIP Assessment/Plan dvt ppx see problem list
[2018-07-20 14:43] VITALS: BP 142/71; PULSE 80; TEMP 98.5
== END 2018-07-20 16:59 | DRG 177 ==
LOC: JER 12:00 → JERBED 14:30 → J6S 16:34
PROVIDERS: ADMIT Family Medicine; ATTEND Family Medicine
DX: J15.1 Pneumonia due to Pseudomonas (principal); J96.01 Acute respiratory failure with hypoxia; S32.040A Wedge compression fracture of fourth lumbar vertebra, initial encounter for closed fracture; S32.010A Wedge compression fracture of first lumbar vertebra, initial encounter for closed fracture; I85.00 Esophageal varices without bleeding; E87.2 Acidosis; J84.9 Interstitial pulmonary disease, unspecified; I69.354 Hemiplegia and hemiparesis following cerebral infarction affecting left non-dominant side; K70.31 Alcoholic cirrhosis of liver with ascites; I25.10 Atherosclerotic heart disease of native coronary artery without angina pectoris; I10 Essential (primary) hypertension; D72.829 Elevated white blood cell count, unspecified; Z85.3 Personal history of malignant neoplasm of breast; A31.0 Pulmonary mycobacterial infection; E87.6 Hypokalemia; E11.9 Type 2 diabetes mellitus without complications; G20 Parkinson's disease; Z98.61 Coronary angioplasty status; M48.061 Spinal stenosis, lumbar region without neurogenic claudication; D64.9 Anemia, unspecified; M25.551 Pain in right hip; E78.5 Hyperlipidemia, unspecified; F41.8 Other specified anxiety disorders; X58.XXXA Exposure to other specified factors, initial encounter; Y93.9 Activity, unspecified; Y92.89 Other specified places as the place of occurrence of the external cause; Y99.9 Unspecified external cause status
CPT/HCPCS: 36415; 71045-TC-FY; 71046-TC-FY; 72128-TC; 72131-TC; 72192-TC; 73523-TC-FY; 74019-TC-FY; 80048; 80053; 81003; 82728; 82962; 83036; 83540; 83550; 83605; 83735; 83880; 84100; 84484; 85025; 85027; 87040; 87070; 87086; 87186; 87205; 87305; 87449; 87899; 93005; 93010; 93306-TC; 94640; 97116-GP; 97162-GP; 99284-25; J1644

== ENCOUNTER 2018-07-29 10:25 | Inpatient (IN) | payer OTHER ==
--- NOTE | 2018-07-29 11:46 | PDOC ---
Attending Attestation - Resident Resident Name: Caroline Garcia - ED Attending Attestation I have performed the following: I have examined & evaluated the patient, The case was reviewed & discussed with the resident, I agree w/resident's findings & plan, Exceptions are as noted - HPI HPI: 07/29/18 11:55 Ms Ribera is a 77yo F h/o CAD (with stents), DM, HTN, anemia, CVA (L-sided residual), and breast CA, repeat admissions for pneumonia (sputum + pseudomonas , treated with Meropenem) Pt reports 5 - 7 days of a cough No fevers or chills Pt is short of breath Denies chest pain - Physicial Exam PE: 07/29/18 13:04 GENERAL: The patient is in no acute distress, pt appears dyspneic. ENT: Ears normal, nares patent, oropharynx clear without exudates. Moist mucous membranes. NECK: Normal range of motion, supple, no nuchal rigidity LUNGS: rhoncherous breath sounds throughout HEART: Tachycardiac, regular ABDOMEN: Soft, nontender, normoactive bowel sounds. EXTREMITIES: Normal range of motion, no edema. NEUROLOGICAL: Cranial nerves II through XII grossly intact. Normal speech. No focal neurological deficits. SKIN: Warm, Dry, normal turgor, no rashes or lesions noted. - Medical Decision Making 77 yo F presenting with hypoglycemia and hypothermia Recent pneumonia admissions x 2 (dx with pseudomonas) 07/29/18 13:13 Laboratory Tests 07/29/18 07/29/18 07/29/18 10:34 11:00 11:00 WBC 11.6 H Hgb 11.4 Hct 33.7 Sodium 138 Potassium 5.0 Chloride 106 Carbon Dioxide 27 BUN 15 Creatinine 0.6 POC Glucometer 131 Alkaline Phosphatase 386 H Troponin I < 0.02 Urine Blood Urine Nitrite Ur Leukocyte Esterase Urine WBC (Auto) Urine RBC (Auto) Urine Bacteria (Auto) 07/29/18 12:23 WBC Hgb Hct Sodium Potassium Chloride Carbon Dioxide BUN Creatinine POC Glucometer Alkaline Phosphatase Troponin I Urine Blood Negative Urine Nitrite Negative Ur Leukocyte Esterase 1+ Urine WBC (Auto) 10 Urine RBC (Auto) 5 Urine Bacteria (Auto) 8.964 CXR- multifocal infiltrative process noted in both lungs Will admit Given Meropenam and Vancomycin 07/29/18 15:29 EKG - NSR rate of 98 bpm, axis nml, no st elevation or depression
--- NOTE | 2018-07-29 11:46 | PDOC ---
History of Present Illness - General Chief Complaint: Blood Sugar Problem Stated Complaint: HYPOGLYCEMIA Time Seen by Provider: 07/29/18 10:40 History Source: Patient, [facility] Records Exam Limitations: Language Barrier - History of Present Illness Initial Comments: 07/29/18 11:45 77yo F with PMH of CAD s/p stent, DM, COPD/Asthma, HTN, HLD, Cirrhosis, Anemia, Parkinsons, Breast Ca s/p lumpectomy BIBA from [facility] for hypoglycemia. Per records, fingerstick was found to be 34. She was given 2 of glucagon and repeat glucose was 41 and pt was saturating at 84%. EMS was called and pt was given D10W. Fingerstick here is 131. Pt is endorsing SOB (which she states she has been having for the past 9 months) but states that she has been having cough productive of a brownish sputum for the past 5 days. She had chest pain 2 days ago but is denying any pain now. Endorses chills. Denies fever, headache, congestion, abdominal pain, n/v/d, urinary symptoms. PMD: [place] PMH: see hpi PSH: see hpi Meds: see med rec Allergies: PCN, Bactrim, Levaquin Past History - Past Medical History Allergies/Adverse Reactions: Allergies Allergy/AdvReac Type Severity Reaction Status Date / Time levofloxacin [From Levaquin] Allergy Intermediate Rash Verified 07/08/18 12:11 Penicillins Allergy Rash Verified 07/08/18 12:11 sulfamethoxazole AdvReac Intermediate Verified 07/08/18 12:11 [From Bactrim] trimethoprim [From Bactrim] AdvReac Intermediate Verified 07/08/18 12:11 Home Medications: Ambulatory Orders Atorvastatin Calcium [Lipitor] 10 mg PO HS 05/07/18 Heparin - 5,000 unit SQ BID vial 05/13/18 Zinc Oxide 20% Topical Oint 454 gm NR ASDIR 06/28/18 Guaifenesin/D-Methorphan Hb [Diabetic Tussin Dm -] 10 ml PO Q4H PRN ml Insulin Lispro [Humalog] 0 unit SQ [facility]IR 07/08/18 Acetaminophen [Tylenol .Regular Strength -] 650 mg PO Q6H PRN tablet 07/19/18 Albuterol 2.5/Ipratropium 0.5 [Duoneb -] 1 amp NEB RTID amp 07/19/18 Aspirin Coated [Ecotrin -] 81 mg PO DAILY tablet.ec 07/19/18 Carbidopa/Levodopa 25/100 [Sinemet 25/100 -] 1 each PO TID tablet 07/19/18 Escitalopram Oxalate [Lexapro -] 10 mg PO DAILY tablet 07/19/18 Furosemide [Lasix -] 40 mg PO DAILY tablet 07/19/18 Gabapentin [Neurontin -] 200 mg PO TID capsule 07/19/18 Insulin (Levemir) [Levemir Vial] 40 units SQ HS units 07/19/18 Losartan Potassium [Cozaar -] 100 mg PO DAILY tablet 07/19/18 Melatonin 5 mg PO HS PRN tab 07/19/18 Nadolol [Corgard -] 20 mg PO DAILY tablet 07/19/18 Pantoprazole Sodium [Protonix -] 40 mg PO DAILY tablet.ec 07/19/18 Potassium Chloride [Potassium Chloride Oral Liquid] 40 meq PO BID cup 07/19/18 Fludrocortisone Acetate [Florinef -] 0.1 mg PO DAILY 07/29/18 Prednisone 20 mg PO DAILY 07/29/18 Anemia: Yes Asthma: Yes Cancer: Yes (breast : Left lumpectomy) Cardiac Disorders: Yes (CAD with stents) CVA: Yes COPD: Yes CHF: No Dementia: Yes Diabetes: Yes GI Disorders: Yes (HX. ULCERS,ESOPHAGEAL VARICES) Disorders: No HTN: Yes Hypercholesterolemia: Yes Liver Disease: Yes (ALCOHOL CIRRHOSIS??-ASCITES) Psychiatric Problems: Yes (ANXIETY.) Seizures: No Thyroid Disease: No - Surgical History Abdominal Surgery: No Appendectomy: No Cardiac Surgery: Yes (STENT X 1 in LAD 1978) Cholecystectomy: No Lung Surgery: No Neurologic Surgery: No Orthopedic Surgery: No - Immunization History Immunization Up to Date: Yes - Suicide/Smoking/Psychosocial Hx Smoking Status: Yes Smoking History: Unknown if ever smoked Years of Tobacco Use: 5 Have you smoked in the past 12 months: No Number of Cigarettes Smoked Daily: 0 If you are a former smoker, when did you quit?: over 30 years ago Information on smoking cessation initiated: No Hx Alcohol Use: No Drug/Substance Use Hx: No Substance Use Type: None Hx Substance Use Treatment: No Review of Systems - Review of Systems Constitutional: Yes: Chills, Weakness. No: Fever HEENTM: No: Symptoms Reported Respiratory: Yes: See HPI, Cough, Shortness of Breath, Productive cough Cardiac (ROS): No: Chest Pain, Lightheadedness, Palpitations, Syncope, Chest Tightness ABD/GI: No: Constipated, Diarrhea, Nausea, Vomiting, Abdominal cramping : No: Symptoms Reported Musculoskeletal: No: Back Pain, Joint Pain, Muscle Pain Integumentary: No: Symptoms Reported Neurological: No: Headache, Numbness, Tingling *Physical Exam - Vital Signs Last Vital Signs Temp Pulse Resp BP Pulse Ox 96.5 F L 96 H 20 134/54 L 87 L 07/29/18 10:44 07/29/18 10:44 07/29/18 10:44 07/29/18 10:44 07/29/18 10:44 - Physical Exam General Appearance: Yes: Appropriately Dressed, Cachetic, Thin, Other ( lethargic appearing). No: Apparent Distress HEENT: positive: EOMI, QUYEN, Other (dry mucosal membranes) Neck: positive: Trachea midline, Supple. negative: Lymphadenopathy (R), Lymphadenopathy (L) Respiratory/Chest: positive: Crackles, Other (coarse breath sounds bilaterally) Cardiovascular: positive: Regular Rhythm, Regular Rate, S1, S2, Systolic Murmur Vascular Pulses: Carotid (R): 2+, Carotid (L): 2+, Dorsalis-Pedis (R): 2+, Doralis-Pedis (L): 2+ Gastrointestinal/Abdominal: positive: Normal Bowel Sounds, Soft. negative: Guarding, Rebound, Tenderness, Hernia Musculoskeletal: negative: CVA Tenderness Extremity: positive: Normal Capillary Refill. negative: Pedal Edema, Swelling, Calf Tenderness Integumentary: positive: Other (bruising on abdomen. rash in diaper area. ) Neurologic: positive: senior dentist II-XII NML intact, Fully Oriented, Alert, Normal Mood/ Affect, Normal Response. negative: Motor Strength 5/5 (decreased strength in legs bilaterally), Sensory Deficit Moderate Sedation - Procedure Monitoring Vital Signs: Procedure Monitoring Vital Signs Temperature 96.5 F L 07/29/18 10:44 Pulse Rate 96 H 07/29/18 10:44 Respiratory Rate 20 07/29/18 10:44 Blood Pressure 134/54 L 07/29/18 10:44 O2 Sat by Pulse Oximetry (%) 87 L 07/29/18 10:44 ED Treatment Course - LABORATORY CBC & Chemistry Diagram: 07/29/18 11:00 07/29/18 11:00 - ADDITIONAL ORDERS Additional order review: Laboratory Results 07/29/18 10:34 POC Glucometer 131 07/29/18 10:34 POC Glucometer 131 - RADIOLOGY Radiology Studies Ordered: Category Date Time Status CHEST X-RAY PORTABLE* [RAD] Stat Radiology 07/29/18 11:00 Ordered Medical Decision Making - Medical Decision Making 77yo F with PMH of CAD s/p stent, DM, COPD/Asthma, HTN, HLD, Anemia, Parkinsons , Breast Ca s/p lumpectomy BIBA from [facility] for hypoglycemia. Per records, fingerstick was found to be 34. She was given 2 of glucagon and repeat glucose was 41 and pt was saturating at 84%. EMS was called and pt was given D10W. Fingerstick here is 131. Pt is endorsing SOB (which she states she has been having for the past 9 months) but states that she has been having cough productive of a brownish sputum for the past 5 days. She had chest pain 2 days ago but is denying any pain now. Endorses chills. Denies fever, headache, congestion, abdominal pain, n/v/d, urinary symptoms. Vitals: 88%RA on arrival, rectal temp 96 PE: course breath sounds with crackles. tired/ill appearing. Dry membranes. -septic w/u -cxr, ekg -zaida hugger O2 high 90s on 2L NC 07/29/18 13:33 was on merepenem last time, will give now. also vanc. ct chest bc last was in june and xray shows new consolidations. Will order CT chest. Labs significant for WBC 11, Lact 2.5. getting 500mL fluids. 07/29/18 19:25 CT: new infiltrates withing upper and lower lobes bilaterally. Numerous pulmonary nodules (prior). Small RUL increased focal lucency which may be on basis of bronchiectasis v. cavitation. Main pulm aa somewheat dilated. small to moderate amount of ascites in upper abdomen. Bilateral flank subq edema Hepatic cirrhosis Pt admitted for PNA, hypothermia *DC/Admit/Observation/Transfer Diagnosis at time of Disposition: Pneumonia Qualifiers: Pneumonia type: due to unspecified organism Laterality: bilateral Lung location : unspecified part of lung Qualified Code(s): J18.9 - Pneumonia, unspecified organism Hypothermia Qualifiers: Encounter type: initial encounter Qualified Code(s): T68.XXXA - Hypothermia, initial encounter - Discharge Dispostion Condition at time of disposition: Good - Referrals - Patient Instructions - Post Discharge Activity
[2018-07-29] MEDS ORDERED: SODIUM CHLORIDE 500 ML IV STA (11:47)
[2018-07-29] MEDS ORDERED: VANCOMYCIN 1 GM in D5W (PRE-DOCKED) 1,000 MG/250 ML IVPB ONE (12:01)
[2018-07-29] MEDS ORDERED: MEROPENEM 1 GM in DEXTROSE 5%-WATER 100 ML IVPB ONE (12:01)
[2018-07-29 12:10] LABS: VENOUS PH 7.31 (7.31-7.41); VENOUS PO2 51.1 mmHg (30-40)
[2018-07-29] MEDS ORDERED: VANCOMYCIN 1 GRAM (PRE-DOCKED) 1,000 MG/250 ML BAG IVPB ONE (12:13)
[2018-07-29 12:24] LABS: EOS % 0.6 % (0-4.5); HEMATOCRIT 33.7 % (32.4-45.2); HEMOGLOBIN 11.4 GM/dL (10.7-15.3); LYMPH % 5.8 % (8-40); MCH 32.6 pg (25.7-33.7); MEAN CELL VOLUME 95.9 fl (80-96); MEAN PLT VOLUME 7.5 fl (7.5-11.1); NEUT % 90.6 % (42.8-82.8); PLATELET COUNT 234 K/MM3 (134-434); RBC 3.51 M/mm3 (3.60-5.2); RDW 16.3 % (11.6-15.6); WHITE BLOOD COUNT 11.6 K/mm3 (4.0-10.0)
[2018-07-29 12:36] LABS: ALBUMIN 1.5 g/dl (3.4-5.0); ALK PHOS 386 U/L (45-117); ANION GAP 4 MMOL/L (8-16); BILIRUBIN,TOTAL 1.5 mg/dL (0.2-1); BLOOD UREA NITROGEN 15 mg/dL (7-18); CALCIUM 8.5 mg/dL (8.5-10.1); CHLORIDE 106 mmol/L (98-107); CO2 27 mmol/L (21-32); CREATININE 0.6 mg/dL (0.55-1.3); GLUCOSE,RANDOM 89 mg/dL (74-106); SGOT/AST 98 U/L (15-37); SGPT/ALT 53 U/L (13-61); SODIUM 138 mmol/L (136-145); TOT PROT 6.4 g/dl (6.4-8.2)
[2018-07-29 12:54] LABS: EPI CELLS 2.8 /HPF (0-5); PH,URINE 6.5 (5.0-8.0); URINE APPEARANCE CLEAR; URINE BACTERIA 8.964 /hpf (NEGATIVE); URINE BILIRUBIN NEGATIVE (<2.0 mg/dL); URINE CASTS 6 /hpf (0-8); URINE COLOR DK YELLOW; URINE GLUCOSE (UA) NEGATIVE (NEGATIVE); URINE KETONE NEGATIVE (NEGATIVE); URINE LEUK ESTERASE 1+ (NEGATIVE); URINE NITRITE NEGATIVE (NEGATIVE); URINE PROTEIN 1+ (NEGATIVE); URINE RBC 5 /hpf (0-4); URINE WBC 10 /hpf (0-5)
[2018-07-29] MEDS ORDERED: HEPARIN - 25,000 UNIT in SODIUM CHLORIDE 495 ML IV SCH (13:15)
[2018-07-29 14:44] LABS: ACTIVATED PTT 29.4 SECONDS (25.2-36.5)
[2018-07-29 14:48] LABS: INR 1.37 (0.82-1.09); PROTHROMBIN TIME (PATIENT) 15.2 SEC (10.2-13.0)
[2018-07-29] MEDS ORDERED: DEXTROSE 5%-NORMAL SALINE 1,000 ML IV SCH (18:00)
[2018-07-29] MEDS ORDERED: MELATONIN 5 MG TABLETS PO PRN (18:57)
[2018-07-29 19:14] LABS: ARTERIAL BLOOD GAS PCO2 39.6 mmHg (35-45); ARTERIAL BLOOD GAS PO2 65.7 mmHg (80-105); ARTERIAL BLOOD GAS pH 7.42 (7.35-7.45)
[2018-07-29 19:16] LABS: ALLENS TEST POSITIVE
[2018-07-29] MEDS: ACETAMINOPHEN 325 MG TABLET (FP) PO PRN (19:30)
--- NOTE | 2018-07-29 21:23 | HP ---
Admitting History and Physical - Admission Chief Complaint: Hypoglycemia. Cough x 5-7 days History of Present Illness: Patient is a 77 y/o female with past medical history of CAD (with stents), HTN, anemia, DM, CVA with L side residual, breast CA. Patient presented from [facility] with complaints of cough 7 days. Today patient was noted with BS 34mg/dL in NH, received glucagon x 2 and repeat BS 41mg/dL. EMS called and received D10W and BS increased to 131mg/dL. Chest CT scan shows new infiltrates in within upper and lower lobes bilaterally, small RUL infiltrate which demonstrates increased focal lucency which may be on the basis of bonchiectasis vs cavitation , numerous bilateral upper and lower lobe pulmonary nodules, main pulmonary artery appears somewhat dilated siggestive of increased pulmonary arterial pressure, bilateral flank subcutaneous edema, hepatic cirrhosis noted with splenomegaly. In ER noted with WBC 11.6, LA 2.8, and received vancomycin and meropenem. 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 poor prep in past.), Stent (cardiac), Tonsillectomy, Upper Endoscopy (h/o esoph varices. on nadalol. s/p banding. due to surveillance egd in 04/10/15) - Smoking History Smoking history: Unknown if ever smoked Have you smoked in the past 12 months: No Aproximately how many cigarettes per day: 0 If you are a former smoker, when did you quit?: over 30 years ago - Alcohol/Substance Use Hx Alcohol Use: No History of Substance Use: reports: None - Social History Usual Living Arrangement: Yes: Assisted ADL: Support Services History of Recent Travel: Yes Home Medications - Allergies Allergies/Adverse Reactions: Allergies Allergy/AdvReac Type Severity Reaction Status Date / Time levofloxacin [From Levaquin] Allergy Intermediate Rash Verified 07/08/18 12:11 Penicillins Allergy Rash Verified 07/08/18 12:11 sulfamethoxazole AdvReac Intermediate Verified 07/08/18 12:11 [From Bactrim] trimethoprim [From Bactrim] AdvReac Intermediate Verified 07/08/18 12:11 - Home Medications Home Medications: Ambulatory Orders Atorvastatin Calcium [Lipitor] 10 mg PO HS 05/07/18 Heparin - 5,000 unit SQ BID vial 05/13/18 Zinc Oxide 20% Topical Oint 454 gm NR ASDIR 06/28/18 Guaifenesin/D-Methorphan Hb [Diabetic Tussin Dm -] 10 ml PO Q4H PRN ml Insulin Lispro [Humalog] 0 unit SQ ASDIR 07/08/18 Acetaminophen [Tylenol .Regular Strength -] 650 mg PO Q6H PRN tablet 07/19/18 Albuterol 2.5/Ipratropium 0.5 [Duoneb -] 1 amp NEB RTID amp 07/19/18 Aspirin Coated [Ecotrin -] 81 mg PO DAILY tablet.ec 07/19/18 Carbidopa/Levodopa 25/100 [Sinemet 25/100 -] 1 each PO TID tablet 07/19/18 Escitalopram Oxalate [Lexapro -] 10 mg PO DAILY tablet 07/19/18 Furosemide [Lasix -] 40 mg PO DAILY tablet 07/19/18 Gabapentin [Neurontin -] 200 mg PO TID capsule 07/19/18 Insulin (Levemir) [Levemir Vial] 40 units SQ HS units 07/19/18 Losartan Potassium [Cozaar -] 100 mg PO DAILY tablet 07/19/18 Melatonin 5 mg PO HS PRN tab 07/19/18 Nadolol [Corgard -] 20 mg PO DAILY tablet 07/19/18 Pantoprazole Sodium [Protonix -] 40 mg PO DAILY tablet.ec 07/19/18 Potassium Chloride [Potassium Chloride Oral Liquid] 40 meq PO BID cup 07/19/18 Fludrocortisone Acetate [Florinef -] 0.1 mg PO DAILY 07/29/18 Prednisone 20 mg PO DAILY 07/29/18 Family Disease History - Family Disease History Family Disease History: Diabetes: Brother (4 brothers), Other: Father ( 80's: unclear cancer), Mother ( 90's, unclear cause), Brother, Sister ( 7 sisters), Son (3, 1 : does not recall cause), Daughter (3) Review of Systems - Review of Systems Constitutional: reports: Weakness Eyes: reports: No Symptoms HENT: reports: No Symptoms Neck: reports: No Symptoms Cardiovascular: reports: No Symptoms Respiratory: reports: Cough, SOB Gastrointestinal: reports: No Symptoms Genitourinary: reports: No Symptoms Breasts: reports: No Symptoms Reported Musculoskeletal: reports: No Symptoms Integumentary: reports: No Symptoms Neurological: reports: No Symptoms Endocrine: reports: No Symptoms Hematology/Lymphatic: reports: No Symptoms Psychiatric: reports: No Symptoms Physical Examination Vital Signs: Vital Signs Temperature 97.7 F 07/29/18 19:00 Pulse Rate 100 H 07/29/18 19:00 Respiratory Rate 22 H 07/29/18 19:00 Blood Pressure 142/69 07/29/18 19:00 O2 Sat by Pulse Oximetry (%) 98 07/29/18 15:43 Constitutional: Yes: Calm, Mild Distress Eyes: Yes: Conjunctiva Clear HENT: Yes: Atraumatic Cardiovascular: Yes: Regular Rate and Rhythm Respiratory: Yes: On Nasal O2, SOB, Tachypnea, Other (crackles) Gastrointestinal: Yes: Normal Bowel Sounds, Soft Musculoskeletal: Yes: Muscle Weakness Extremities: Yes: WNL Edema: No Integumentary: Yes: Bruising (R hip, abdomen) Neurological: Yes: Alert Psychiatric: Yes: Alert Labs: CBC, BMP 07/29/18 11:00 07/29/18 11:00 Imaging - Results Chest X-ray: Report Reviewed Cat Scan: Report Reviewed Problem List - Problems (1) Pneumonia Assessment/Plan: -ID consult placed -sputum culture ordered -BC pending -WBC 11.6 -afebrile -pulm consult -duo neb tx prn for sob -O2 via NC -keep SpO2 >90% Code(s): J18.9 - PNEUMONIA, UNSPECIFIED ORGANISM Qualifiers: Pneumonia type: due to unspecified organism Laterality: bilateral Lung location: unspecified part of lung Qualified Code(s): J18.9 - Pneumonia, unspecified organism (2) Hypothermia Assessment/Plan: -resolved -temp 97.7F Code(s): T68.XXXA - HYPOTHERMIA, INITIAL ENCOUNTER Qualifiers: Encounter type: initial encounter Qualified Code(s): T68.XXXA - Hypothermia , initial encounter (3) CVA (cerebral infarction) Assessment/Plan: -continue asa Code(s): I63.9 - CEREBRAL INFARCTION, UNSPECIFIED Qualifiers: Cerebral infarction mechanism: unspecified mechanism Qualified Code(s): I63.9 - Cerebral infarction, unspecified (4) Cirrhosis of liver Assessment/Plan: -elev AT 98 and Alk phos 386 -GI consult Code(s): K74.60 - UNSPECIFIED CIRRHOSIS OF LIVER Qualifiers: Hepatic cirrhosis type: alcoholic cirrhosis Ascites presence: with ascites Qualified Code(s): K70.31 - Alcoholic cirrhosis of liver with ascites (5) Compression fracture of L4 vertebra Assessment/Plan: -pain management Code(s): S32.040A - WEDGE COMPRESSION FRACTURE OF FOURTH LUMBAR VERTEBRA, INIT (6) Coronary artery disease Assessment/Plan: -cont asa and statin Code(s): I25.10 - ATHSCL HEART DISEASE OF [place] CORONARY ARTERY W/O ANG PCTRS Qualifiers: Coronary Disease-Associated Artery/Lesion type: [place] artery [place] vs. transplanted heart: [place] heart Associated angina: without angina Qualified Code(s): I25.10 - Atherosclerotic heart disease of [place] coronary artery without angina pectoris (7) Elevated lactic acid level Assessment/Plan: -LA 2.8 in ER, trending down 2.2 -will monitor for downtrend Code(s): R79.89 - OTHER SPECIFIED ABNORMAL FINDINGS OF BLOOD CHEMISTRY (8) Hip pain, right Assessment/Plan: -R hip xray due to ecchymosis -pain management Code(s): M25.551 - PAIN IN RIGHT HIP (9) Hyperlipidemia Assessment/Plan: -cont atorvastatin Code(s): E78.5 - HYPERLIPIDEMIA, UNSPECIFIED Qualifiers: Hyperlipidemia type: pure hypercholesterolemia Qualified Code(s): E78.00 - Pure hypercholesterolemia, unspecified; E78.0 - Pure hypercholesterolemia (10) Hypertension Assessment/Plan: -cont losartan Code(s): I10 - ESSENTIAL (PRIMARY) HYPERTENSION (11) Shortness of breath Assessment/Plan: -pulm consult -duoneb prn for sob -O2 via NC -keep SpO2 >90% Code(s): R06.02 - SHORTNESS OF BREATH (12) Hypoglycemia Assessment/Plan: -BGM q4h -hold levemir until BS more stable Code(s): E16.2 - HYPOGLYCEMIA, UNSPECIFIED Assessment/Plan see problem list dvt ppx
[2018-07-29] MEDS: GABAPENTIN 100 MG CAPSULE (FP) PO SCH (21:45)
[2018-07-29] MEDS: ATORVASTATIN CA 10 MG TABLET (FP) PO SCH (21:45)
[2018-07-29] MEDS: CARBIDOPA/LEVODOPA 25/100 TABLET (FP) PO SCH (21:45)
[2018-07-29] MEDS: INSULIN SLIDING SCALE (NOVOLOG) 1 VIAL SQ SCH (21:45)
[2018-07-29] MEDS ORDERED: INSULIN (LEVEMIR) 100 UNITS/ML UNITS SQ SCH (22:00)
[2018-07-30] MEDS: INSULIN SLIDING SCALE (NOVOLOG) 1 VIAL SQ SCH ×4 (06:04→22:00)
[2018-07-30] MEDS: GABAPENTIN 100 MG CAPSULE (FP) PO SCH ×3 (06:22→21:40)
[2018-07-30] MEDS: CARBIDOPA/LEVODOPA 25/100 TABLET (FP) PO SCH ×3 (06:22→21:40)
[2018-07-30 08:50] LABS: EOS % 0.9 % (0-4.5); HEMATOCRIT 32.5 % (32.4-45.2); HEMOGLOBIN 11.2 GM/dL (10.7-15.3); LYMPH % 5.6 % (8-40); MCH 32.7 pg (25.7-33.7); MCHC 34.3 g/dl (32.0-36.0); MEAN CELL VOLUME 95.3 fl (80-96); MEAN PLT VOLUME 7.6 fl (7.5-11.1); MONO % 4.4 % (3.8-10.2); NEUT % 89.1 % (42.8-82.8); PLATELET COUNT 136 K/MM3 (134-434); RBC 3.41 M/mm3 (3.60-5.2); RDW 16.7 % (11.6-15.6); WHITE BLOOD COUNT 16.2 K/mm3 (4.0-10.0)
[2018-07-30 09:04] LABS: ALBUMIN 1.5 g/dl (3.4-5.0); ALK PHOS 346 U/L (45-117); ANION GAP 7 MMOL/L (8-16); BILIRUBIN,TOTAL 1.4 mg/dL (0.2-1); BLOOD UREA NITROGEN 12 mg/dL (7-18); CALCIUM 8.3 mg/dL (8.5-10.1); CHLORIDE 108 mmol/L (98-107); CO2 25 mmol/L (21-32); CREATININE 0.6 mg/dL (0.55-1.3); GLUCOSE,RANDOM 85 mg/dL (74-106); MAGNESIUM 1.9 mg/dL (1.8-2.4); N-TERMINAL BNP 2477.4 pg/ml (5-450); PHOSPHOROUS 3.5 mg/dL (2.5-4.9); POTASSIUM 4.1 mmol/L (3.5-5.1); SGOT/AST 42 U/L (15-37); SGPT/ALT 16 U/L (13-61); SODIUM 140 mmol/L (136-145); TOT PROT 5.7 g/dl (6.4-8.2)
[2018-07-30] MEDS ORDERED: MAG HYDROX/AL HYDROX/SIMETH 30 ML UNIT-DOSE CUP PO PRN (09:14)
[2018-07-30] MEDS ORDERED: FUROSEMIDE 40 MG TABLET (FP) PO SCH (10:00)
[2018-07-30] MEDS ORDERED: predniSONE 20 MG TABLET (UD) PO SCH (10:00)
[2018-07-30] MEDS: ESCITALOPRAM OXALATE 10 MG TABLET (FP) PO SCH (10:27)
[2018-07-30] MEDS: ASPIRIN COATED 81 MG TABLET.EC PO SCH (10:27)
[2018-07-30] MEDS: LOSARTAN POTASSIUM 50 MG TABLET (FP) PO SCH (10:27)
[2018-07-30] MEDS: PANTOPRAZOLE 40 MG TABLET (FP) PO SCH (10:28)
[2018-07-30] MEDS: FLUDROCORTISONE ACETATE 0.1 MG TABLET (FP) PO SCH (10:29)
[2018-07-30] MEDS: ALBUTEROL SO4 2.5/IPRATROPIUM 0.5 INH SOL 3 ML VIAL.NEB. NEB PRN ×2 (10:36→15:18)
--- NOTE | 2018-07-30 11:23 | PN ---
Progress Note, Physician Chief Complaint: PNA Hypoglycemia History of Present Illness: Previous notes and events reviewed awake and alert tachycardic--EKG show sinus tachycardia leukocytosis and lactic acidosis afebrile rectal temp 98.6 - Current Medication List Current Medications: Active Medications Acetaminophen (Tylenol -) 650 mg PO Q6H PRN PRN Reason: PAIN LEVEL 1-5 Last Admin: 07/29/18 19:30 Dose: 650 mg Al Hydroxide/Mg Hydroxide (Mylanta Oral Suspension -) 30 ml PO Q6H PRN PRN Reason: DYSPEPSIA Last Admin: 07/30/18 10:28 Dose: 30 ml Albuterol Sulfate (Ventolin 0.083% Nebulizer Soln -) 1 amp NEB Q6H PRN PRN Reason: SHORT OF BREATH/WHEEZING Albuterol/Ipratropium (Duoneb -) 1 amp NEB Q6H PRN PRN Reason: SHORTNESS OF BREATH Last Admin: 07/30/18 10:36 Dose: 1 amp Aspirin (Ecotrin -) 81 mg PO DAILY [facility] Last Admin: 07/30/18 10:27 Dose: 81 mg Atorvastatin Calcium (Lipitor -) 10 mg PO HS [facility] Last Admin: 07/29/18 21:45 Dose: 10 mg Carbidopa/Levodopa (Sinemet 25/100 -) 1 each PO TID [facility] Last Admin: 07/30/18 06:22 Dose: 1 each Escitalopram Oxalate (Lexapro -) 10 mg PO DAILY [facility] Last Admin: 07/30/18 10:27 Dose: 10 mg Fludrocortisone Acetate (Florinef -) 0.1 mg PO DAILY [facility] Last Admin: 07/30/18 10:29 Dose: 0.1 mg Furosemide (Lasix Injection -) 40 mg IVPUSH DAILY [facility] Gabapentin (Neurontin -) 200 mg PO TID [facility] Last Admin: 07/30/18 06:22 Dose: 200 mg Meropenem 1 gm/ Dextrose 100 mls @ 200 mls/hr IVPB Q8H-IV [place] Insulin Aspart (Novolog Vial Sliding Scale -) 1 vial SQ ACHS [facility]; Protocol Last Admin: 07/30/18 06:04 Dose: Not Given Lidocaine (Lidoderm Patch -) 1 patch TP DAILY [facility] Losartan Potassium (Cozaar -) 100 mg PO DAILY [facility] Last Admin: 07/30/18 10:27 Dose: 100 mg Melatonin (Melatonin) 5 mg PO HS PRN PRN Reason: INSOMNIA Miscellaneous (Lidoderm Patch Removal) 1 each MC DAILY@2200 [facility] Pantoprazole Sodium (Protonix -) 40 mg PO DAILY [facility] Last Admin: 07/30/18 10:28 Dose: 40 mg - Objective Vital Signs: Vital Signs Temperature 98.2 F 07/30/18 10:00 Pulse Rate 126 H 07/30/18 10:00 Respiratory Rate 22 H 07/30/18 10:00 Blood Pressure 142/61 07/30/18 10:00 O2 Sat by Pulse Oximetry (%) 94 L 07/30/18 09:00 Constitutional: Yes: Mild Distress Eyes: Yes: Conjunctiva Clear HENT: Yes: Atraumatic Cardiovascular: Yes: Tachycardia Respiratory: Yes: Accessory Muscle Use, Cough, On Nasal O2, SOB, Tachypnea, Other (crackles B/L) Gastrointestinal: Yes: Normal Bowel Sounds, Soft, Distention Genitourinary: Yes: Incontinence Musculoskeletal: Yes: Muscle Weakness Extremities: Yes: WNL Neurological: Yes: Alert Psychiatric: Yes: Alert Labs: CBC, BMP 07/30/18 07:30 07/30/18 07:30 INR, PTT INR 1.37 (0.82-1.09) H 07/29/18 11:00 Troponin, BNP 07/29/18 07/29/18 07/30/18 11:00 11:00 07:30 Troponin I < 0.02 Cancelled < 0.02 B-Natriuretic Peptide 2477.4 H Problem List - Problems (1) Pneumonia Assessment/Plan: -ID on board -start meropenem IV -sputum culture ordered -BC pending -WBC 16.2 -LA 2.4 -afebrile -pulm on board -duo neb and albuterol tx prn for sob -methylprednisone -O2 via NC -keep SpO2 >90% -transfer to ICU Code(s): J18.9 - PNEUMONIA, UNSPECIFIED ORGANISM Qualifiers: Pneumonia type: due to unspecified organism Laterality: bilateral Lung location: unspecified part of lung Qualified Code(s): J18.9 - Pneumonia, unspecified organism (2) Hypothermia Assessment/Plan: -resolved Code(s): T68.XXXA - HYPOTHERMIA, INITIAL ENCOUNTER Qualifiers: Encounter type: initial encounter Qualified Code(s): T68.XXXA - Hypothermia , initial encounter (3) CVA (cerebral infarction) Assessment/Plan: -continue asa Code(s): I63.9 - CEREBRAL INFARCTION, UNSPECIFIED Qualifiers: Cerebral infarction mechanism: unspecified mechanism Qualified Code(s): I63.9 - Cerebral infarction, unspecified (4) Cirrhosis of liver Assessment/Plan: -elev AT 42 and Alk phos 346 -GI consult Code(s): K74.60 - UNSPECIFIED CIRRHOSIS OF LIVER Qualifiers: Hepatic cirrhosis type: alcoholic cirrhosis Ascites presence: with ascites Qualified Code(s): K70.31 - Alcoholic cirrhosis of liver with ascites (5) Compression fracture of L4 vertebra Assessment/Plan: -pain management Code(s): S32.040A - WEDGE COMPRESSION FRACTURE OF FOURTH LUMBAR VERTEBRA, INIT (6) Coronary artery disease Assessment/Plan: -cont asa and statin Code(s): I25.10 - ATHSCL HEART DISEASE OF [place] CORONARY ARTERY W/O ANG PCTRS Qualifiers: Coronary Disease-Associated Artery/Lesion type: [place] artery [place] vs. transplanted heart: [place] heart Associated angina: without angina Qualified Code(s): I25.10 - Atherosclerotic heart disease of [place] coronary artery without angina pectoris (7) Elevated lactic acid level Assessment/Plan: -LA 2.4 -will monitor for downtrend Code(s): R79.89 - OTHER SPECIFIED ABNORMAL FINDINGS OF BLOOD CHEMISTRY (8) Hip pain, right Assessment/Plan: -R hip xray due to ecchymosis-no acute signs of fracture or subluxation -pain management Code(s): M25.551 - PAIN IN RIGHT HIP (9) Hyperlipidemia Assessment/Plan: -cont atorvastatin Code(s): E78.5 - HYPERLIPIDEMIA, UNSPECIFIED Qualifiers: Hyperlipidemia type: pure hypercholesterolemia Qualified Code(s): E78.00 - Pure hypercholesterolemia, unspecified; E78.0 - Pure hypercholesterolemia (10) Hypertension Assessment/Plan: -cont losartan Code(s): I10 - ESSENTIAL (PRIMARY) HYPERTENSION (11) Shortness of breath Assessment/Plan: -pulm on board -duoneb and albuterol prn for sob -O2 via NC -keep SpO2 >90% Code(s): R06.02 - SHORTNESS OF BREATH (12) Hypoglycemia Assessment/Plan: -BGM q4h -hold levemir until BS more stable Code(s): E16.2 - HYPOGLYCEMIA, UNSPECIFIED (13) Sepsis Assessment/Plan: -sepsis criteria-LA 2.4, WBC 16.2, tachycardic 119bpm, tachypnea -ID on board -start meropenem IV -sputum culture ordered -BC pending -WBC 16.2 -LA 2.4 -afebrile -pulm on board -duo neb and albuterol tx prn for sob -methylprednisone -O2 via NC -keep SpO2 >90% -transfer to ICU Code(s): A41.9 - SEPSIS, UNSPECIFIED ORGANISM
--- NOTE | 2018-07-30 11:42 | PN ---
Progress Note (short form) - Note Progress Note: PULMONARY CONSULT 77 F, CVA, CAD s/p stents, DM, Breast CA, alcoholic cirrhosis, esophageal varices, GI bleed, PUD, and HTN. Admitted via the ER from the long term due to shortness of breath and chest pain. Recent admissions and treatment for Pseudomonas PNA and discharged 07/07 on Ceftazidime to continue for 7 more days. She is noted to be tachycardic and tachypneic,febrile and appearing septic. 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 No: Cancer, Previously Intubated, Pulmonary Embolus, Pulmonary Fibrosis, Sleep Apnea Gastrointestinal: Yes: Ascites (h/o sbp intolerant to bactrim and levaquin), Esophageal Varices (h/o bleeding, banding and on nadalol), GI Bleed (variceal and duodenal ulcer), Peptic Ulcer Disease, Other (diabetic gastropareis, h/o hpylori rxed with pylera) Hepatobiliary: Yes: Cirrhosis Psych: Yes: Depression Endocrine: Yes: Diabetes Mellitus (historically poor control) Dermatology: Yes: Other (SACRAL DECUBITI) - Past Surgical History Past Surgical History: Yes: Colonoscopy (multiple large polyps. poor prep in past.), Stent (cardiac), Tonsillectomy, Upper Endoscopy (h/o esoph varices. on nadalol. s/p banding. due to surveillance egd in 04/10/15) - Smoking History Smoking history: Unknown if ever smoked Have you smoked in the past 12 months: No Aproximately how many cigarettes per day: 0 If you are a former smoker, when did you quit?: over 30 years ago - Social History Usual Living Arrangement: snf ADL: Support Services History of Recent Travel: Yes Home Medications - Allergies Allergies/Adverse Reactions: Allergies Allergy/AdvReac Type Severity Reaction Status Date / Time levofloxacin [From Levaquin] Allergy Intermediate Rash Verified 07/08/18 12:11 Penicillins Allergy Rash Verified 07/08/18 12:11 sulfamethoxazole AdvReac Intermediate Verified 07/08/18 12:11 [From Bactrim] trimethoprim [From Bactrim] AdvReac Intermediate Verified 07/08/18 12:11 MEDS REVIEWED Family Disease History - Family Disease History Family Disease History: Diabetes: Brother (4 brothers), Other: Father ( 80's: unclear cancer), Mother ( 90's, unclear cause), Brother, Sister ( 7 sisters), Son (3, 1 : does not recall cause), Daughter (3) Review of Systems - Review of Systems Constitutional: reports: Chills, Fever, Malaise. denies: Night Sweats, Unintentional Wgt. Loss Eyes: reports: No Symptoms HENT: reports: No Symptoms Neck: reports: No Symptoms Cardiovascular: reports: Chest Pain, Shortness of Breath. denies: Edema, Palpitations Respiratory: reports: Cough, SOB, SOB on Exertion. denies: Hemoptysis, Snoring , Wheezing Gastrointestinal: reports: No Symptoms Genitourinary: reports: No Symptoms Breasts: reports: No Symptoms Reported Musculoskeletal: reports: No Symptoms Integumentary: reports: No Symptoms Neurological: reports: No Symptoms Endocrine: reports: No Symptoms Hematology/Lymphatic: reports: No Symptoms Psychiatric: reports: No Symptoms Constitutional: Yes: appears toxic Eyes: Yes: Conjunctiva Clear, EOM Intact HENT: Yes: Atraumatic, Normocephalic Neck: Yes: Supple, Trachea Midline Cardiovascular: Yes: Regular Rate and Rhythm tachy Respiratory: Yes: Cough, Diminished, Rhonchi, SOB, SOB on Exertion, Tachypnea. No: Accessory Muscle Use, Rales, Stridor, Wheezes ...Inspection: Yes: WNL ...Clubbing: No Gastrointestinal: Yes: Normal Bowel Sounds, Soft Renal/: Yes: WNL Musculoskeletal: Yes: WNL Extremities: Yes: WNL Edema: No Peripheral Pulses WNL: Yes Integumentary: Yes: WNL Neurological: Yes: WNL, Alert, Oriented ...Motor Strength: WNL Psychiatric: Yes: WNL, Alert, Oriented Labs: reviewed Imaging - Results Chest X-ray: Report Reviewed, Image Reviewed Problem List - Problems (1) Pneumonia Code(s): J18.9 - PNEUMONIA, UNSPECIFIED ORGANISM (2) Angina pectoris Code(s): I20.9 - ANGINA PECTORIS, UNSPECIFIED (3) Anxiety Code(s): F41.9 - ANXIETY DISORDER, UNSPECIFIED (4) Asthma Code(s): J45.909 - UNSPECIFIED ASTHMA, UNCOMPLICATED Qualifiers: Asthma severity: unspecified severity Asthma complication type: uncomplicated (5) Back pain Code(s): M54.9 - DORSALGIA, UNSPECIFIED (6) Breast cancer Code(s): C50.919 - MALIGNANT NEOPLASM OF UNSP SITE OF UNSPECIFIED FEMALE BREAST (7) Cirrhosis of liver Code(s): K74.60 - UNSPECIFIED CIRRHOSIS OF LIVER Qualifiers: Hepatic cirrhosis type: alcoholic cirrhosis Ascites presence: with ascites Qualified Code(s): K70.31 - Alcoholic cirrhosis of liver with ascites (8) Coronary artery disease Code(s): I25.10 - ATHSCL HEART DISEASE OF [place] CORONARY ARTERY W/O ANG PCTRS Qualifiers: Coronary Disease-Associated Artery/Lesion type: [place] artery [place] vs. transplanted heart: [place] heart Associated angina: without angina Qualified Code(s): I25.10 - Atherosclerotic heart disease of [place] coronary artery without angina pectoris (9) Cough Code(s): R05 - COUGH (10) Depression Code(s): F32.9 - MAJOR DEPRESSIVE DISORDER, SINGLE EPISODE, UNSPECIFIED (11) Diabetes Code(s): E11.9 - TYPE 2 DIABETES MELLITUS WITHOUT COMPLICATIONS Qualifiers: Diabetes mellitus type: type 2 (12) Elevated lactic acid level Code(s): R79.89 - OTHER SPECIFIED ABNORMAL FINDINGS OF BLOOD CHEMISTRY (13) Hx of antibiotic allergy Code(s): Z88.1 - ALLERGY STATUS TO OTHER ANTIBIOTIC AGENTS STATUS (14) Hyperlipidemia Code(s): E78.5 - HYPERLIPIDEMIA, UNSPECIFIED Qualifiers: Hyperlipidemia type: pure hypercholesterolemia Qualified Code(s): E78.00 - Pure hypercholesterolemia, unspecified; E78.0 - Pure hypercholesterolemia (15) Hypertension Code(s): I10 - ESSENTIAL (PRIMARY) HYPERTENSION (16) Interstitial lung disease Code(s): J84.9 - INTERSTITIAL PULMONARY DISEASE, UNSPECIFIED (17) Lactic acidosis Code(s): E87.2 - ACIDOSIS (18) Pneumonia Code(s): J18.9 - PNEUMONIA, UNSPECIFIED ORGANISM Qualifiers: (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 MRS RENE APPEARS SEPTIC, HER CT CHEST REVEALS WORSENING BILATERAL NODULES AND MASSES LIKELY C/W UNDERLYING MAC SHE HAS BEEN TREATED IN PAST FULL COURSE FOR MAC. GIVEN UNDERLYING CO-MORBID CONDITIONS LISTED HER PROGNOSIS APPEARS POOR. SHE ALSO HAD PSEUDOMONAS ISOLATED FROM SPUTUM LAST ADMISSION. WOULD TRANSFER TO ICU PATIENT IS A FULL CODE. ID FOLLOW UP/PANCULTURE/EMPIRIC ANTIBIOTICS PER ID/ WILL FOLLOW R SONDRA SHEPARD
[2018-07-30] MEDS: MEROPENEM 1 GM in DEXTROSE 5%-WATER 100 ML IVPB SCH ×2 (12:14→19:35)
--- NOTE | 2018-07-30 16:16 | PN ---
Progress Note (short form) - Note Progress Note: ID CONSULT DICTATED ACUTE EXACERBATION CHRONIC LUNG DISEASE PNEUMONIA HX + SPUTUM C/S PSEUDOMONAS HX PULMONARY MAC AWAIT C/S EMPIRIC MEROPENEM/ VANCOMYCIN
[2018-07-30] MEDS: VANCOMYCIN HCL 1,250 MG in DEXTROSE 5%-WATER - 250 ML IVPB SCH (17:40)
[2018-07-30] MEDS ORDERED: PT OWN MED DRAWER 7, Y5N ONE ×2 (17:42→21:19)
[2018-07-30] MEDS: ACETAMINOPHEN 325 MG TABLET (FP) PO PRN (17:50)
--- NOTE | 2018-07-30 20:10 | CONSULT ---
Consultation: REQUESTING PROVIDER: CONSULT REQUEST: We have been asked to medically evaluate this patient for ( worsening shortness of breath---ICU admission). HISTORY OF PRESENT ILLNESS: Patient is a 77 year old Trinid[place] speaking female sent from [facility] for hypoglycemic episode on 07/29/18. As per the EMR, her blood sugar was 34 mg/dl was given glucagon twice and repeat finger stick was 41 mg/dl. 911 was called, EMS started her on D10W and sugar increased to 131 mg/dl. Patient reports she also had cough x 7 days, productive. Patient was admitted on the floors and was being treated for Hospital acquired pneumonia. This morning, patient was found to have worsening shortness of breath hence transferred to the ICU for further monitoring and management. On arrival to the ED, patient was afebrile, started spiking fever from today, T max 101.9, tachycardic, tachpenic. Labs were significant for Leukocytosis of 16 , lactic acid of 2.8, BNP 2477. Chest CT scan shows new infiltrates in within upper and lower lobes bilaterally, small RUL infiltrate which demonstrates increased focal lucency which may be on the basis of bonchiectasis vs cavitation, numerous bilateral upper and lower lobe pulmonary nodules, main pulmonary artery appears somewhat dilated siggestive of increased pulmonary arterial pressure, bilateral flank subcutaneous edema, hepatic cirrhosis noted with splenomegaly. On IV Meropenam and Vancomycin. Upon assessment in the ICU, patient was lying in bed, complaining of pain in the left groin and burning urination. States her shortness of breath has improved. Otherwise, ROS is negative. Vitals: BP 140/68 mmHg, Pulse 110-115 bpm , RR-22, Spo2 97 % @ 2L NC. Patient was recently hospitalized on 07/08/18-07/20/18 for Pneumonia. PAST MEDICAL HISTORY: CAD (with stents), HTN, HLD, DM, Asthma, anemia, CVA with L side residual, breast CA, Depression, Ascites (h/o SBP intolerant to bactrim and levaquin), Esophageal Varices (h/o bleeding, banding and on nadalol) , GI Bleed (variceal and duodenal ulcer), Peptic Ulcer Disease ALLERGIES: Levofloxacin, Penicillins, sulfamethoxazole, Trimethoprim PAST SURGICAL HISTORY: Stent 2014, Tonsillectomy, Upper Endoscopy (h/o esoph varices. on nadalol. s/p banding. surveillance egd in 04/10/15) Colonoscopy ( multiple large polyps. 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: CONSTITUTIONAL: Absent: fever, chills, diaphoresis, generalized weakness, malaise, loss of appetite, weight change HEENT: Absent: rhinorrhea, nasal congestion, throat pain, throat swelling, difficulty swallowing, mouth swelling, ear pain, eye pain, visual changes CARDIOVASCULAR: Absent: chest pain, syncope, palpitations, irregular heart rate, lightheadedness , peripheral edema RESPIRATORY: Present: cough, shortness of breath Absent: dyspnea with exertion, orthopnea, wheezing, stridor, hemoptysis GASTROINTESTINAL: Absent: abdominal pain, abdominal distension, nausea, vomiting, diarrhea, constipation, melena, hematochezia GENITOURINARY: Present: Dysuria Absent: frequency, urgency, hesitancy, hematuria, flank pain, genital pain MUSCULOSKELETAL: Absent: myalgia, arthralgia, joint swelling, back pain, neck pain SKIN: Absent: rash, itching, pallor HEMATOLOGIC/IMMUNOLOGIC: Absent: easy bleeding, easy bruising, lymphadenopathy, frequent infections ENDOCRINE: Absent: unexplained weight gain, unexplained weight loss, heat intolerance, cold intolerance NEUROLOGIC: Absent: headache, focal weakness or paresthesias, dizziness, unsteady gait, seizure, mental status changes, bladder or bowel incontinence PSYCHIATRIC: Absent: anxiety, depression, suicidal or homicidal ideation, hallucinations. PHYSICAL EXAMINATION Vital Signs - 24 hr 07/29/18 07/29/18 07/29/18 21:00 21:41 22:00 Temperature 98 F Pulse Rate 127 H 96 H Respiratory 22 H 26 H 22 H Rate Blood Pressure 136/69 128/76 O2 Sat by Pulse 93 L Oximetry (%) 07/30/18 07/30/18 07/30/18 02:00 06:00 09:00 Temperature 98.2 F 98.0 F Pulse Rate 111 H 112 H Respiratory 24 H 20 Rate Blood Pressure 127/79 130/71 O2 Sat by Pulse 94 L Oximetry (%) 07/30/18 07/30/18 07/30/18 10:00 12:50 13:00 Temperature 98.2 F 99.8 F H Pulse Rate 126 H 130 H 128 H Respiratory 22 H 28 H 30 H Rate Blood Pressure 142/61 139/75 154/76 O2 Sat by Pulse 96 Oximetry (%) 07/30/18 07/30/18 07/30/18 14:00 15:00 17:53 Temperature 100.4 F H 101.9 F H Pulse Rate 126 H 128 H 130 H Respiratory 28 H 26 H 24 H Rate Blood Pressure 157/83 105/72 153/82 O2 Sat by Pulse Oximetry (%) GENERAL: Elderly female, lying in bed, Awake, alert, and oriented x2, in mild respiratory distress, able to speak full sentence. Marks inplace. EYES: EOM intact, no pallor or icterus. EARS, NOSE, THROAT: Moist mucous membranes. NECK: Supple, no JVD. LUNGS: Bibasilar crackles, occasional wheeze. HEART: Tachycardic, Regular rate and rhythm, normal S1 and S2 with systolic murmur. ABDOMEN: Ecchymosis +, distended abdomen, Soft, nontender, no organomegaly, BS + . UPPER EXTREMITIES: Swollen hands B/L. LOWER EXTREMITIES: No peripheral edema. NEUROLOGICAL: No facial droop. Normal speech.Gait not observed. SKIN: No rashes or lesions. Laboratory Results - last 24 hr 07/29/18 07/30/18 07/30/18 21:38 01:55 03:48 WBC RBC Hgb Hct MCV MCH MCHC RDW Plt Count MPV Absolute Neuts (auto) Neutrophils % Lymphocytes % Monocytes % Eosinophils % Basophils % Nucleated RBC % Sodium Potassium Chloride Carbon Dioxide Anion Gap BUN Creatinine Creat Clearance w eGFR POC Glucometer 119 104 86 Random Glucose Lactic Acid Calcium Phosphorus Magnesium Total Bilirubin AST ALT Alkaline Phosphatase Troponin I B-Natriuretic Peptide Total Protein Albumin Influenza A (Rapid) Influenza B (Rapid) 07/30/18 07/30/18 07/30/18 05:33 07:30 07:30 WBC 16.2 H RBC 3.41 L Hgb 11.2 Hct 32.5 MCV 95.3 MCH 32.7 MCHC 34.3 RDW 16.7 H Plt Count 136 D MPV 7.6 Absolute Neuts (auto) 14.5 H Neutrophils % 89.1 H Lymphocytes % 5.6 L Monocytes % 4.4 Eosinophils % 0.9 Basophils % 0.0 Nucleated RBC % 0 Sodium 140 Potassium 4.1 Chloride 108 H Carbon Dioxide 25 Anion Gap 7 L BUN 12 Creatinine 0.6 Creat Clearance w eGFR 97.46 POC Glucometer 103 Random Glucose 85 Lactic Acid Calcium 8.3 L Phosphorus 3.5 Magnesium 1.9 Total Bilirubin 1.4 H AST 42 H ALT 16 Alkaline Phosphatase 346 H Troponin I < 0.02 B-Natriuretic Peptide 2477.4 H Total Protein 5.7 L Albumin 1.5 L Influenza A (Rapid) Influenza B (Rapid) 07/30/18 07/30/18 07/30/18 07:30 10:13 12:00 WBC RBC Hgb Hct MCV MCH MCHC RDW Plt Count MPV Absolute Neuts (auto) Neutrophils % Lymphocytes % Monocytes % Eosinophils % Basophils % Nucleated RBC % Sodium Potassium Chloride Carbon Dioxide Anion Gap BUN Creatinine Creat Clearance w eGFR POC Glucometer 185 Random Glucose Lactic Acid 2.4 H* Calcium Phosphorus Magnesium Total Bilirubin AST ALT Alkaline Phosphatase Troponin I B-Natriuretic Peptide Total Protein Albumin Influenza A (Rapid) Negative Influenza B (Rapid) Negative 07/30/18 17:13 WBC RBC Hgb Hct MCV MCH MCHC RDW Plt Count MPV Absolute Neuts (auto) Neutrophils % Lymphocytes % Monocytes % Eosinophils % Basophils % Nucleated RBC % Sodium Potassium Chloride Carbon Dioxide Anion Gap BUN Creatinine Creat Clearance w eGFR POC Glucometer 216 Random Glucose Lactic Acid Calcium Phosphorus Magnesium Total Bilirubin AST ALT Alkaline Phosphatase Troponin I B-Natriuretic Peptide Total Protein Albumin Influenza A (Rapid) Influenza B (Rapid) Active Medications Generic Name Dose Route Start Last Admin Trade Name Freq PRN Reason Stop Dose Admin Acetaminophen 650 mg 07/29/18 19:01 07/30/18 17:50 Tylenol - PO 650 mg Q6H PRN Administration PAIN LEVEL 1-5 Al Hydroxide/Mg Hydroxide 30 ml 07/30/18 09:14 07/30/18 10:28 Mylanta Oral Suspension - PO 30 ml Q6H PRN Administration DYSPEPSIA Albuterol Sulfate 1 amp 07/30/18 09:15 Ventolin 0.083% Nebulizer Soln - NEB Q6H PRN SHORT OF BREATH/WHEEZING Albuterol/Ipratropium 1 amp 07/29/18 18:58 07/30/18 15:18 Duoneb - NEB 1 amp Q6H PRN Administration SHORTNESS OF BREATH Aspirin 81 mg 07/30/18 10:00 07/30/18 10:27 Ecotrin - PO 81 mg DAILY KANNAN Administration Atorvastatin Calcium 10 mg 07/29/18 22:00 07/29/18 21:45 Lipitor - PO 10 mg HS KANNAN Administration Carbidopa/Levodopa 1 each 07/29/18 22:00 07/30/18 14:15 Sinemet 25/100 - PO 1 each TID KANNAN Administration Escitalopram Oxalate 10 mg 07/30/18 10:00 07/30/18 10:27 Lexapro - PO 10 mg DAILY KANNAN Administration Fludrocortisone Acetate 0.1 mg 07/30/18 10:00 07/30/18 10:29 Florinef - PO 0.1 mg DAILY KANNAN Administration Furosemide 40 mg 07/31/18 10:00 Lasix Injection - IVPUSH DAILY KANNAN Gabapentin 200 mg 07/29/18 22:00 07/30/18 14:15 Neurontin - PO 200 mg TID KANNAN Administration Meropenem 1 gm/ Dextrose 100 mls @ 200 mls/hr 07/30/18 12:00 07/30/18 19:35 IVPB 200 mls/hr Q8H-IV KANNAN Administration Vancomycin HCl 1,250 mg/ 250 mls @ 166.667 mls/hr 07/30/18 17:00 07/30/18 17: 40 Dextrose IVPB 166.667 mls/hr Q12H KANNAN Administration Protocol Insulin Aspart 1 vial 07/29/18 22:00 07/30/18 17:38 Novolog Vial Sliding Scale - SQ 2 units ACHS KANNAN Administration Protocol Lidocaine 1 patch 07/31/18 10:00 Lidoderm Patch - TP DAILY KANNAN Losartan Potassium 100 mg 07/30/18 10:00 07/30/18 10:27 Cozaar - PO 100 mg DAILY KANNAN Administration Melatonin 5 mg 07/29/18 18:57 Melatonin PO HS PRN INSOMNIA Miscellaneous 1 each 07/30/18 22:00 Lidoderm Patch Removal MC DAILY@2200 KANNAN Pantoprazole Sodium 40 mg 07/30/18 10:00 07/30/18 10:28 Protonix - PO 40 mg DAILY KANNAN Administration IMAGIN07/30/18 HIP/PELVIS x-ray: Impression: No acute change since prior study of 2018. 07/29/[address]: In comparison to a prior chest CT exam of 06/29/2018 new infiltrates are seen within the upper and lower lobes bilaterally. A small right upper lobe infiltrate is again noted which demonstrates increased focal lucency which may be on the basis of bronchiectasis versus cavitation. As on the prior study very numerous bilateral upper and lower lobe pulmonary nodules are seen. Also as on the prior study patchy bilateral upper and lower lobe infiltrates are noted with associated bronchiectasis. The main pulmonary artery appears somewhat dilated suggestive of increased pulmonary arterial pressure. Interval development of a small to moderate amount of ascites is seen within the upper abdomen bilaterally. Development of bilateral flank subcutaneous edema is noted. Hepatic cirrhosis is again noted with associated splenomegaly. A marked subacute/chronic L1 vertebral body compression fracture is again seen with prominent bony retropulsion. ASSESSMENT/PLAN: Patient is a 77 year old Trin[place] speaking female with PMHx of DM, HTN, HLD, CAD s/p stents, breast cancer, ascites, recently admitted for pneumonia sent from [facility] for hypoglycemic today. # Acute hypoxic respiratory failure likely secondary to HAP with Sepsis ABG 07/29/18: pH 7.42, Pco2 39, Po2 65 Recently admitted at [facility] (07/08-07/20/18) for pneumonia, there was a suspicion for MOTTS, was discussed with ID last admission, there was no indication for treatment at that time for MOTTS Now comes in with productive cough x [address] chest suggestive of new infiltrates Transferred to ICU today for worsening shortness of breath. Saturation normal at 2L NC, shortness of breath improving. Continue IV Meropenam and IV Vancomycin, ID on board, blood cultures pending lactic acid on admission, 2.8--> 2.4--> pending, will trend IV Fluids given yesterday, will be cautious to give IV fluids, given BNP of 2477 (BNP 513 07/08/18). On IV Lasix 40 mg daily . At this time, vitals are stable. 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 Kinsey. X-ray of Hip/pelvis 07/30/18 shows No acute change since prior study of 2018 If pain persists, further imaging with CT or MR may be of help. # Hypoglycemia-resolved # CVA Continue Aspirin # CAD s/p stents Continue aspirin and statin # HLD Continue statin # HTN-controlled Continue Losartan 100 mg PO daily. # Cirrhosis of liver Ascites (h/o SBP intolerant to bactrim and levaquin), Esophageal Varices (h/ o bleeding, banding and on nadalol), GI Bleed (variceal and duodenal ulcer), Peptic Ulcer Disease # Depression Continue lexapro # Parkinsons Disease Continue Sinemet # Breast Cancer (dx in 2014) As per EMR:- 11/2014 - left breast lumpectomy with left axiallary sentinel lymph node and nonsentinal node: pT1b pN0 no mets, ER/GA positive, HER2 negative, Ki67 index low - lymph nodes negative for metastatic carcinoma - lumpectomy: invasive mucinous carcinoa, hypocellular type, low nuclear grade, 8mm, surgical margins uninvolved by carcinoma, no skin or lymphovasc invasion Needs Heme/onc f/up as outpatient # FEN Not on IV fluids Electrolytes WNL Low salt diet # Prophylaxis For DVT: On Heparin 5000 IU sq TID For GI: On IV Protonix # Code Status: Full Code Illness, Investigation and plan of care explained to the patient. She verbalized understanding. Lisbet Lopez-PGY 3. Dispo: We will continue to follow the patient. Thank you for this consultative opportunity. Visit type - Emergency Visit Emergency Visit: Yes ED Registration Date: 07/29/18 Care time: The patient presented to the Emergency Department on the above date and was hospitalized for further evaluation of their emergent condition. - New Patient This patient is new to me today: Yes Date on this admission: 07/30/18 - Critical Care Critical Care patient: Yes Total Critical Care Time (in minutes): 35 Critical Care Statement: The care of this patient involved high complexity decision making to prevent further life threatening deterioration of the patient 's condition and/or to evaluate & treat vital organ system(s) failure or risk of failure.
[2018-07-30] MEDS ORDERED: ACETAMINOPHEN 1000 MG/100 ML VIAL (NON FORMULARY) IVPB ONE (21:37)
[2018-07-30] MEDS: ATORVASTATIN CA 10 MG TABLET (FP) PO SCH (21:40)
[2018-07-30] MEDS: LIDOCAINE PATCH REMOVAL MC SCH (22:00)
--- NOTE | 2018-07-30 23:46 | EKG ---
Test Reason : Blood Pressure : / mmHG Vent. Rate : 119 BPM Atrial Rate : 119 BPM P-R Int : 144 ms QRS Dur : 078 ms QT Int : 330 ms P-R-T Axes : 060 -23 069 degrees QTc Int : 464 ms SINUS TACHYCARDIA OTHERWISE NORMAL ECG WHEN COMPARED WITH ECG OF 29-JUL-2018 14:38, T WAVE INVERSION NO LONGER EVIDENT IN ANTERIOR LEADS Confirmed by DANELLE SHEPARD, ASH ([id number]) on 07/30/2018 11:46:27 PM Referred By: Huey NAZARIO Confirmed By:ASH MCCLENDON MD
--- NOTE | 2018-07-30 23:51 | EKG ---
Test Reason : Blood Pressure : / mmHG Vent. Rate : 098 BPM Atrial Rate : 098 BPM P-R Int : 144 ms QRS Dur : 090 ms QT Int : 362 ms P-R-T Axes : 061 -22 035 degrees QTc Int : 462 ms NORMAL SINUS RHYTHM POSSIBLE LEFT ATRIAL ENLARGEMENT INFERIOR INFARCT , AGE UNDETERMINED POSSIBLE ANTERIOR INFARCT , AGE UNDETERMINED ABNORMAL ECG WHEN COMPARED WITH ECG OF 08-JUL-2018 12:10, BORDERLINE CRITERIA FOR ANTERIOR INFARCT ARE NOW PRESENT NO SIGNIFICANT CHANGE WAS FOUND Confirmed by ASH MCCLENDON MD ([id number]) on 07/30/2018 11:51:40 PM Referred By: KURTIS JEAN Confirmed By:ASH MCCLENDON MD
[2018-07-31] MEDS: MEROPENEM 1 GM in DEXTROSE 5%-WATER 100 ML IVPB SCH ×3 (03:45→17:09)
[2018-07-31] MEDS: CARBIDOPA/LEVODOPA 25/100 TABLET (FP) PO SCH ×3 (06:16→22:54)
[2018-07-31] MEDS: GABAPENTIN 100 MG CAPSULE (FP) PO SCH ×3 (06:16→22:53)
[2018-07-31] MEDS: HEPARIN NA (PORCINE) 5,000 UNITS/ML 1ML VIAL SQ SCH ×3 (06:17→22:53)
[2018-07-31] MEDS: INSULIN SLIDING SCALE (NOVOLOG) 1 VIAL SQ SCH ×4 (06:27→22:53)
[2018-07-31] MEDS: VANCOMYCIN HCL 1,250 MG in DEXTROSE 5%-WATER - 250 ML IVPB SCH ×2 (06:28→16:07)
[2018-07-31 06:42] LABS: HEMATOCRIT 28.4 % (32.4-45.2); HEMOGLOBIN 10.2 GM/dL (10.7-15.3); MCHC 35.9 g/dl (32.0-36.0); MEAN CELL VOLUME 94.5 fl (80-96); MEAN PLT VOLUME 7.6 fl (7.5-11.1); PLATELET COUNT 132 K/MM3 (134-434); RBC 3.01 M/mm3 (3.60-5.2); RDW 16.5 % (11.6-15.6); WHITE BLOOD COUNT 10.9 K/mm3 (4.0-10.0)
[2018-07-31 06:44] LABS: ALBUMIN 1.4 g/dl (3.4-5.0); ALK PHOS 320 U/L (45-117); ANION GAP 5 MMOL/L (8-16); BILIRUBIN,TOTAL 1.2 mg/dL (0.2-1); BLOOD UREA NITROGEN 14 mg/dL (7-18); CALCIUM 8.1 mg/dL (8.5-10.1); CHLORIDE 103 mmol/L (98-107); CO2 29 mmol/L (21-32); CREATININE 0.6 mg/dL (0.55-1.3); GLUCOSE,RANDOM 213 mg/dL (74-106); MAGNESIUM 1.8 mg/dL (1.8-2.4); PHOSPHOROUS 3.7 mg/dL (2.5-4.9); POTASSIUM 3.6 mmol/L (3.5-5.1); SGOT/AST 32 U/L (15-37); SGPT/ALT 9 U/L (13-61); SODIUM 136 mmol/L (136-145); TOT PROT 5.4 g/dl (6.4-8.2)
[2018-07-31] MEDS: ALBUTEROL SO4 2.5/IPRATROPIUM 0.5 INH SOL 3 ML VIAL.NEB. NEB PRN ×2 (07:30→15:09)
--- NOTE | 2018-07-31 07:30 | PN ---
Physical Exam: SUBJECTIVE: Patient seen and examined, reported shortness of breath. OBJECTIVE: Vital Signs Period Temp Pulse Resp BP Sys/Donovan Pulse Ox Last 24 Hr 98.2 F-101.9 F 111-130 19-30 105-168/61-87 94-97 GENERAL: The patient is awake, alert in no acute distress. HEAD: Normal with no signs of trauma. EYES: PERRL, extraocular movements intact, sclera anicteric, conjunctiva clear. No ptosis. ENT: Ears normal, nares patent, oropharynx clear without exudates, moist mucous membranes. NECK: Trachea midline, full range of motion, supple. LUNGS: Breath sounds equal, bibasilar crackles. no stridor. speaking full sentences. actively coughing. tachypneic. HEART: Regular rate and rhythm, S1, S2 without murmur, rub or gallop. ABDOMEN: diffuse ecchymoses. Soft, nontender, nondistended, normoactive bowel sounds, no guarding, no rebound, no hepatosplenomegaly, no masses. EXTREMITIES: 2+ pulses, warm, well-perfused, no edema. NEUROLOGICAL: Cranial nerves II through XII grossly intact. Normal speech, gait not observed. PSYCH: Normal mood, normal affect. SKIN: Warm, dry, normal turgor, no rashes or lesions noted Laboratory Results - last 24 hr 07/30/18 07/30/18 07/30/18 07:30 07:30 07:30 WBC 16.2 H RBC 3.41 L Hgb 11.2 Hct 32.5 MCV 95.3 MCH 32.7 MCHC 34.3 RDW 16.7 H Plt Count 136 D MPV 7.6 Absolute Neuts (auto) 14.5 H Neutrophils % 89.1 H Lymphocytes % 5.6 L Monocytes % 4.4 Eosinophils % 0.9 Basophils % 0.0 Nucleated RBC % 0 Sodium 140 Potassium 4.1 Chloride 108 H Carbon Dioxide 25 Anion Gap 7 L BUN 12 Creatinine 0.6 Creat Clearance w eGFR 97.46 POC Glucometer Random Glucose 85 Lactic Acid 2.4 H* Calcium 8.3 L Phosphorus 3.5 Magnesium 1.9 Total Bilirubin 1.4 H AST 42 H ALT 16 Alkaline Phosphatase 346 H Troponin I < 0.02 B-Natriuretic Peptide 2477.4 H Total Protein 5.7 L Albumin 1.5 L Influenza A (Rapid) Influenza B (Rapid) 07/30/18 07/30/18 07/30/18 10:13 12:00 17:13 WBC RBC Hgb Hct MCV MCH MCHC RDW Plt Count MPV Absolute Neuts (auto) Neutrophils % Lymphocytes % Monocytes % Eosinophils % Basophils % Nucleated RBC % Sodium Potassium Chloride Carbon Dioxide Anion Gap BUN Creatinine Creat Clearance w eGFR POC Glucometer 185 216 Random Glucose Lactic Acid Calcium Phosphorus Magnesium Total Bilirubin AST ALT Alkaline Phosphatase Troponin I B-Natriuretic Peptide Total Protein Albumin Influenza A (Rapid) Negative Influenza B (Rapid) Negative 07/30/18 07/30/18 07/31/18 21:54 23:00 05:30 WBC RBC Hgb Hct MCV MCH MCHC RDW Plt Count MPV Absolute Neuts (auto) Neutrophils % Lymphocytes % Monocytes % Eosinophils % Basophils % Nucleated RBC % Sodium 136 Potassium 3.6 Chloride 103 Carbon Dioxide 29 Anion Gap 5 L BUN 14 Creatinine 0.6 Creat Clearance w eGFR 97.20 POC Glucometer 188 Random Glucose 213 H Lactic Acid 2.0 Calcium 8.1 L Phosphorus 3.7 Magnesium 1.8 Total Bilirubin 1.2 H AST 32 ALT 9 L Alkaline Phosphatase 320 H Troponin I B-Natriuretic Peptide Total Protein 5.4 L Albumin 1.4 L Influenza A (Rapid) Influenza B (Rapid) 07/31/18 06:27 WBC RBC Hgb Hct MCV MCH MCHC RDW Plt Count MPV Absolute Neuts (auto) Neutrophils % Lymphocytes % Monocytes % Eosinophils % Basophils % Nucleated RBC % Sodium Potassium Chloride Carbon Dioxide Anion Gap BUN Creatinine Creat Clearance w eGFR POC Glucometer 182 Random Glucose Lactic Acid Calcium Phosphorus Magnesium Total Bilirubin AST ALT Alkaline Phosphatase Troponin I B-Natriuretic Peptide Total Protein Albumin Influenza A (Rapid) Influenza B (Rapid) Active Medications Generic Name Dose Route Start Last Admin Trade Name Freq PRN Reason Stop Dose Admin Acetaminophen 650 mg 07/29/18 19:01 07/30/18 17:50 Tylenol - PO 650 mg Q6H PRN Administration PAIN LEVEL 1-5 Al Hydroxide/Mg Hydroxide 30 ml 07/30/18 09:14 07/30/18 10:28 Mylanta Oral Suspension - PO 30 ml Q6H PRN Administration DYSPEPSIA Albuterol Sulfate 1 amp 07/30/18 09:15 Ventolin 0.083% Nebulizer Soln - NEB Q6H PRN SHORT OF BREATH/WHEEZING Albuterol/Ipratropium 1 amp 07/29/18 18:58 07/30/18 15:18 Duoneb - NEB 1 amp Q6H PRN Administration SHORTNESS OF BREATH Aspirin 81 mg 07/30/18 10:00 07/30/18 10:27 Ecotrin - PO 81 mg DAILY KANNAN Administration Atorvastatin Calcium 10 mg 07/29/18 22:00 07/30/18 21:40 Lipitor - PO 10 mg HS KANNAN Administration Carbidopa/Levodopa 1 each 07/29/18 22:00 07/31/18 06:16 Sinemet 25/100 - PO 1 each TID KANNAN Administration Escitalopram Oxalate 10 mg 07/30/18 10:00 07/30/18 10:27 Lexapro - PO 10 mg DAILY KANNAN Administration Fludrocortisone Acetate 0.1 mg 07/30/18 10:00 07/30/18 10:29 Florinef - PO 0.1 mg DAILY KANNAN Administration Furosemide 40 mg 07/31/18 10:00 Lasix Injection - IVPUSH DAILY KANNAN Gabapentin 200 mg 07/29/18 22:00 07/31/18 06:16 Neurontin - PO 200 mg TID KANNAN Administration Heparin Sodium (Porcine) 5,000 unit 07/31/18 06:00 07/31/18 06:17 Heparin - SQ 5,000 unit TID KANNAN Administration Meropenem 1 gm/ Dextrose 100 mls @ 200 mls/hr 07/30/18 12:00 07/31/18 03:45 IVPB 200 mls/hr Q8H-IV KANNAN Administration Vancomycin HCl 1,250 mg/ 250 mls @ 166.667 mls/hr 07/30/18 17:00 07/31/18 06: 28 Dextrose IVPB 166.667 mls/hr Q12H KANNAN Administration Protocol Insulin Aspart 1 vial 07/29/18 22:00 07/31/18 06:27 Novolog Vial Sliding Scale - SQ Not Given ACHS KANNAN Protocol Lidocaine 1 patch 07/31/18 10:00 Lidoderm Patch - TP DAILY KANNAN Losartan Potassium 100 mg 07/30/18 10:00 07/30/18 10:27 Cozaar - PO 100 mg DAILY KANNAN Administration Melatonin 5 mg 07/29/18 18:57 Melatonin PO HS PRN INSOMNIA Miscellaneous 1 each 07/30/18 22:00 07/30/18 22:00 Lidoderm Patch Removal MC 1 each DAILY@2200 KANNAN Administration Pantoprazole Sodium 40 mg 07/30/18 10:00 07/30/18 10:28 Protonix - PO 40 mg DAILY KANNAN Administration ASSESSMENT/PLAN: 78 year old female with PMH COPD, asthma, cirrhosis secondary to ETOH abuse, esophageal varices, HTN, HLD, anemia, breast cancer s/p lumpectomy, parkinsons, SBP presented to ED for hypoglycemia and hypoxia. Pt was found to be hypoxic on the floors with BIPAP and transferred to ICU. NEURO -Alert and oriented -Continue to monitor -On home Lexapro 10 mg PO daily -On home Melatonin 5 mg PO HS #HX PARKINSONS -On home carbidopa/levodopa 25/100 1 each PO TID CARDIOVASCULAR #HX HTN -On home Losartan 100 mg PO daily -Pt has been tachycardic, home Nadolol 20 mg PO daily started #HX CAD -On home ASA 81 mg PO daily #HX CHF -On home Lasix 40 mg IV daily -BNP elevation with no peripheral edema likely due to pulmonary HTN #HX HLD -On home Atorvastatin 10 mg PO HS RESPIRATORY #BILATERAL UPPER AND LOWER LOBE INFILTRATES -HX of MAC and Pseudamonas -Multiple attempts were made to have pt follow up outpatient for MAC treatment, which she never received. -Contact [place] for MAC treatment plan -Meropenem per ID -Vancomycin per ID -HOB elevated #ACUTE HYPOXIA -High Flow 40/40 -Continue to monitor #HX COPD/ASTHMA -On home Duonebs 1 amp NEB Q6H PRN -On home Fludrocortisone Acetate 0.1 mg PO daily GI HX GERD -On home protonix 40 mg PO daily ENDO #HX OF DIABETES -Insulin sliding scale PPX -Protonix 40 mg PO daily -Heparin 5000U SQ TID FEN -No IVF -Low sodium diet -Monitor electrolytes DISPO ICU Visit type - Emergency Visit Emergency Visit: Yes ED Registration Date: 07/29/18 Care time: The patient presented to the Emergency Department on the above date and was hospitalized for further evaluation of their emergent condition. - New Patient This patient is new to me today: Yes Date on this admission: 07/31/18 - Critical Care Critical Care patient: Yes Total Critical Care Time (in minutes): 35 Critical Care Statement: The care of this patient involved high complexity decision making to prevent further life threatening deterioration of the patient 's condition and/or to evaluate & treat vital organ system(s) failure or risk of failure. - Discharge Referral Referred to [facility] No
[2018-07-31] MEDS ORDERED: FUROSEMIDE 40 MG/4 ML INJECTABLE VIAL ONE (07:59)
[2018-07-31] MEDS ORDERED: PT OWN MED DRAWER 7, Y5N ONE ×3 (08:37→15:15)
[2018-07-31] MEDS: FLUDROCORTISONE ACETATE 0.1 MG TABLET (FP) PO SCH (09:50)
[2018-07-31] MEDS: LOSARTAN POTASSIUM 50 MG TABLET (FP) PO SCH (09:50)
[2018-07-31] MEDS: ASPIRIN COATED 81 MG TABLET.EC PO SCH (09:50)
[2018-07-31] MEDS: FUROSEMIDE 40 MG/4 ML INJECTABLE VIAL IVPUSH SCH (09:50)
[2018-07-31] MEDS: ESCITALOPRAM OXALATE 10 MG TABLET (FP) PO SCH (09:50)
[2018-07-31] MEDS: LIDOCAINE 5% TOPICAL PATCH TP SCH (09:51)
[2018-07-31] MEDS: PANTOPRAZOLE 40 MG TABLET (FP) PO SCH (09:51)
[2018-07-31] MEDS: ACETAMINOPHEN 325 MG TABLET (FP) PO PRN (09:58)
[2018-07-31 12:20] LABS: ARTERIAL BLD GAS O2 SATURATION 92.5 % (95-98); ARTERIAL BLOOD GAS BASE EXCESS 4.1 meq/l (-2-2); ARTERIAL BLOOD GAS PCO2 41.5 mmHg (35-45); ARTERIAL BLOOD GAS PO2 65.4 mmHg (80-105); ARTERIAL BLOOD GAS pH 7.45 (7.35-7.45)
[2018-07-31 12:22] LABS: ALLENS TEST POSITIVE
[2018-07-31 12:29] VITALS: BMI 28.0
--- NOTE | 2018-07-31 12:34 | PN ---
Teaching Attending Note Name of Resident: Kadie Crowder ATTENDING PHYSICIAN STATEMENT I saw and evaluated the patient. I reviewed the resident's note and discussed the case with the resident. I agree with the resident's findings and plan as documented. SUBJECTIVE: Patient seen and examined in the ICU. More tachypneic and was placed on HFOT. No hemoptysis. ABG pending. D/W ID: will contact [facility] for input for LUCIL[place] treatment. CT: worsening bilateral infiltrates / no evidence of cardiac decompensation. Intake & Output 07/28/18 07/29/18 07/30/18 07/31/18 23:59 23:59 23:59 23:59 Intake Total 500 1000 400 Output Total 1800 Balance 500 1000 -1400 Weight 134 lb 1 oz 128 lb 1.6 oz 139 lb Last Vital Signs Temp Pulse Resp BP Pulse Ox 99.6 F 132 H 26 H 124/74 96 07/31/18 11:07 07/31/18 11:07 07/31/18 11:07 07/31/18 11:07 07/31/18 10:38 Active Medications Acetaminophen (Tylenol -) 650 mg PO Q6H PRN PRN Reason: PAIN LEVEL 1-5 Last Admin: 07/31/18 09:58 Dose: 650 mg Al Hydroxide/Mg Hydroxide (Mylanta Oral Suspension -) 30 ml PO Q6H PRN PRN Reason: DYSPEPSIA Last Admin: 07/30/18 10:28 Dose: 30 ml Albuterol Sulfate (Ventolin 0.083% Nebulizer Soln -) 1 amp NEB Q6H PRN PRN Reason: SHORT OF BREATH/WHEEZING Albuterol/Ipratropium (Duoneb -) 1 amp NEB Q6H PRN PRN Reason: SHORTNESS OF BREATH Last Admin: 07/31/18 07:30 Dose: 1 amp Aspirin (Ecotrin -) 81 mg PO DAILY [facility] Last Admin: 07/31/18 09:50 Dose: 81 mg Atorvastatin Calcium (Lipitor -) 10 mg PO HS [facility] Last Admin: 07/30/18 21:40 Dose: 10 mg Carbidopa/Levodopa (Sinemet 25/100 -) 1 each PO TID [facility] Last Admin: 07/31/18 06:16 Dose: 1 each Escitalopram Oxalate (Lexapro -) 10 mg PO DAILY [facility] Last Admin: 07/31/18 09:50 Dose: 10 mg Fludrocortisone Acetate (Florinef -) 0.1 mg PO DAILY [facility] Last Admin: 07/31/18 09:50 Dose: 0.1 mg Furosemide (Lasix Injection -) 40 mg IVPUSH DAILY [facility] Last Admin: 07/31/18 09:50 Dose: 40 mg Gabapentin (Neurontin -) 200 mg PO TID [facility] Last Admin: 07/31/18 06:16 Dose: 200 mg Heparin Sodium (Porcine) (Heparin -) 5,000 unit SQ TID [facility] Last Admin: 07/31/18 06:17 Dose: 5,000 unit Meropenem 1 gm/ Dextrose 100 mls @ 200 mls/hr IVPB Q8H-IV [facility] Last Admin: 07/31/18 09:51 Dose: 200 mls/hr Vancomycin HCl 1,250 mg/ (Dextrose) 250 mls @ 166.667 mls/hr IVPB Q12H [facility]; Protocol Last Admin: 07/31/18 06:28 Dose: 166.667 mls/hr Insulin Aspart (Novolog Vial Sliding Scale -) 1 vial SQ ACHS [facility]; Protocol Last Admin: 07/31/18 11:05 Dose: 4 units Lidocaine (Lidoderm Patch -) 1 patch TP DAILY [facility] Last Admin: 07/31/18 09:51 Dose: 1 patch Losartan Potassium (Cozaar -) 100 mg PO DAILY [facility] Last Admin: 07/31/18 09:50 Dose: 100 mg Melatonin (Melatonin) 5 mg PO HS PRN PRN Reason: INSOMNIA Miscellaneous (Lidoderm Patch Removal) 1 each MC DAILY@2200 [facility] Last Admin: 07/30/18 22:00 Dose: 1 each Pantoprazole Sodium (Protonix -) 40 mg PO DAILY [facility] Last Admin: 07/31/18 09:51 Dose: 40 mg Constitutional: Yes: awake, mildly tachypneic Eyes: Yes: Conjunctiva Clear, EOM Intact HENT: Yes: Atraumatic, Normocephalic Neck: Yes: Supple, Trachea Midline Cardiovascular: Yes: Regular Rate and Rhythm tachy Respiratory: Yes: Cough, Diminished, Rhonchi, SOB, SOB on Exertion, Tachypnea, Accessory Muscle Use ...Inspection: Yes: WNL ...Clubbing: No Gastrointestinal: Yes: Normal Bowel Sounds, Soft Renal/: Yes: WNL Musculoskeletal: Yes: WNL Extremities: Yes: WNL Edema: No Peripheral Pulses WNL: Yes Integumentary: Yes: WNL Neurological: Yes: WNL, Alert, Oriented ...Motor Strength: WNL Psychiatric: Yes: WNL, Alert, Oriented Labs: reviewed Laboratory Results - last 24 hr 07/30/18 07/30/18 07/30/18 12:00 17:13 21:54 WBC RBC Hgb Hct MCV MCH MCHC RDW Plt Count MPV Puncture Site ABG pH ABG pCO2 at Pt Temp ABG pO2 at Pt Temp ABG HCO3 ABG O2 Sat (Measured) ABG O2 Content ABG Base Excess Samir Test O2 Delivery Device Oxygen Flow Rate Sodium Potassium Chloride Carbon Dioxide Anion Gap BUN Creatinine Creat Clearance w eGFR POC Glucometer 216 188 Random Glucose Lactic Acid Calcium Phosphorus Magnesium Total Bilirubin AST ALT Alkaline Phosphatase Total Protein Albumin Influenza A (Rapid) Negative Influenza B (Rapid) Negative 07/30/18 07/31/18 07/31/18 23:00 05:30 05:30 WBC 10.9 H RBC 3.01 L Hgb 10.2 L Hct 28.4 L MCV 94.5 MCH 34.0 H MCHC 35.9 RDW 16.5 H Plt Count 132 L MPV 7.6 Puncture Site ABG pH ABG pCO2 at Pt Temp ABG pO2 at Pt Temp ABG HCO3 ABG O2 Sat (Measured) ABG O2 Content ABG Base Excess Samir Test O2 Delivery Device Oxygen Flow Rate Sodium 136 Potassium 3.6 Chloride 103 Carbon Dioxide 29 Anion Gap 5 L BUN 14 Creatinine 0.6 Creat Clearance w eGFR 97.20 POC Glucometer Random Glucose 213 H Lactic Acid 2.0 Calcium 8.1 L Phosphorus 3.7 Magnesium 1.8 Total Bilirubin 1.2 H AST 32 ALT 9 L Alkaline Phosphatase 320 H Total Protein 5.4 L Albumin 1.4 L Influenza A (Rapid) Influenza B (Rapid) 07/31/18 07/31/18 07/31/18 06:27 11:04 12:05 WBC RBC Hgb Hct MCV MCH MCHC RDW Plt Count MPV Puncture Site Right radial ABG pH 7.45 ABG pCO2 at Pt Temp 41.5 ABG pO2 at Pt Temp 65.4 L ABG HCO3 28.1 H ABG O2 Sat (Measured) 92.5 L ABG O2 Content 13.5 L ABG Base Excess 4.1 H Samir Test Positive O2 Delivery Device High flow Oxygen Flow Rate 40% Sodium Potassium Chloride Carbon Dioxide Anion Gap BUN Creatinine Creat Clearance w eGFR POC Glucometer 182 284 Random Glucose Lactic Acid Calcium Phosphorus Magnesium Total Bilirubin AST ALT Alkaline Phosphatase Total Protein Albumin Influenza A (Rapid) Influenza B (Rapid) Problem List - Problems (1) Pneumonia Code(s): J18.9 - PNEUMONIA, UNSPECIFIED ORGANISM (2) Angina pectoris Code(s): I20.9 - ANGINA PECTORIS, UNSPECIFIED (3) Anxiety Code(s): F41.9 - ANXIETY DISORDER, UNSPECIFIED (4) Asthma Code(s): J45.909 - UNSPECIFIED ASTHMA, UNCOMPLICATED Qualifiers: Asthma severity: unspecified severity Asthma complication type: uncomplicated (5) Back pain Code(s): M54.9 - DORSALGIA, UNSPECIFIED (6) Breast cancer Code(s): C50.919 - MALIGNANT NEOPLASM OF UNSP SITE OF UNSPECIFIED FEMALE BREAST (7) Cirrhosis of liver Code(s): K74.60 - UNSPECIFIED CIRRHOSIS OF LIVER Qualifiers: Hepatic cirrhosis type: alcoholic cirrhosis Ascites presence: with ascites Qualified Code(s): K70.31 - Alcoholic cirrhosis of liver with ascites (8) Coronary artery disease Code(s): I25.10 - ATHSCL HEART DISEASE OF [place] CORONARY ARTERY W/O ANG PCTRS Qualifiers: Coronary Disease-Associated Artery/Lesion type: [place] artery [place] vs. transplanted heart: [place] heart Associated angina: without angina Qualified Code(s): I25.10 - Atherosclerotic heart disease of [place] coronary artery without angina pectoris (9) Cough Code(s): R05 - COUGH (10) Depression Code(s): F32.9 - MAJOR DEPRESSIVE DISORDER, SINGLE EPISODE, UNSPECIFIED (11) Diabetes Code(s): E11.9 - TYPE 2 DIABETES MELLITUS WITHOUT COMPLICATIONS Qualifiers: Diabetes mellitus type: type 2 (12) Elevated lactic acid level Code(s): R79.89 - OTHER SPECIFIED ABNORMAL FINDINGS OF BLOOD CHEMISTRY (13) Hx of antibiotic allergy Code(s): Z88.1 - ALLERGY STATUS TO OTHER ANTIBIOTIC AGENTS STATUS (14) Hyperlipidemia Code(s): E78.5 - HYPERLIPIDEMIA, UNSPECIFIED Qualifiers: Hyperlipidemia type: pure hypercholesterolemia Qualified Code(s): E78.00 - Pure hypercholesterolemia, unspecified; E78.0 - Pure hypercholesterolemia (15) Hypertension Code(s): I10 - ESSENTIAL (PRIMARY) HYPERTENSION (16) Interstitial lung disease Code(s): J84.9 - INTERSTITIAL PULMONARY DISEASE, UNSPECIFIED (17) Lactic acidosis Code(s): E87.2 - ACIDOSIS (18) Pneumonia Code(s): J18.9 - PNEUMONIA, UNSPECIFIED ORGANISM Qualifiers: (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 PLAN: ABX per ID Trial of HFOT Low threshold for intubation BD TX Would not aggressively diurese as I do not have a high clinical suspicion of CHF Will have house staff reach out to [facility] for input and possible transfer. Suspect that worsening infiltrates may be due to LUCIL[place] progression Judicious IVF Strict I & O Follow cultures VTE prophylaxis Requires ICU monitoring due to tenuous respiratory status Dr Viveros Critical care time spent in reviewing chart, evaluating patient and formulating plan - 36 minutes.
--- NOTE | 2018-07-31 12:51 | CONS ---
DATE OF CONSULTATION: DATE OF DICTATION: 07/31/2018 The patient is a 78-year-old female, known to our service for multiple recent hospital admissions. She has a history of chronic lung disease and a history of pulmonary MAC, now re-admitted with symptomatic hypoglycemia. She was recently admitted for pneumonia. Sputum cultures were positive for Pseudomonas. She received a course of IV meropenem and was discharged to the longterm to complete a full course of IV antibiotic therapy. At the longterm, she was noted to be hypoglycemic with a blood sugars of 34. The patient also complained of shortness of breath and cough productive of brownish sputum. A followup CAT scan was performed and revealed increased upper lobe infiltrates as well as left lower lobe infiltrate compared to previous CAT scans. She is awake. She is chronically dyspneic. She denies any hemoptysis. The patient was recently hospitalized at [facility] from July 08 through July 20 for pneumonia. She also has a history of pulmonary MAC that was treated in the past. The plan was to refer her to [facility] [place] at [place] post discharge for treatment of suspected recurrent MAC. Past medical history positive for COPD, pulmonary MAC, diabetes mellitus, hypertension, hyperlipidemia, breast cancer, chronic liver disease. PAST SURGICAL HISTORY: Status post right total hip replacement. Allergies to LEVAQUIN, PENICILLIN, and SULFA (rash). She has tolerated cephalosporins as well as Azactam and meropenem in the past. Medications include Lipitor, heparin, Tylenol, aspirin, Sinemet, Lexapro, Lasix, Neurontin, Cozaar, melatonin, Coreg, Protonix. SOCIAL HISTORY: Presently living in half-way facility for rehabilitation. LABORATORY DATA: White count on admission 16.2, presently 16.2. Hematocrit 32.5. Platelet count 136. BUN 12, creatinine 0.6. Urinalysis: 10 white cells, cultures are pending. PHYSICAL EXAMINATION: General: The patient is awake. She is dyspneic at rest on supplemental oxygen. Vital Signs: Temperature 99.8. Pulse 130. Blood pressure 136/69. Respirations 24 per minute. Eyes: Sclerae anicteric. Heart Sounds: S1, S2. Lungs: Coarse rhonchi and crepitations bilaterally. Abdomen: Slightly distended, soft, nontender. Extremities: Positive for edema. IMPRESSION: 1. Acute exacerbation of chronic lung disease. 2. Rule out healthcare-acquired pneumonia. 3. History of positive sputum culture Pseudomonas. 4. History of pulmonary Mycobacterium avium complex. Await cultures. Empiric antibiotic coverage for healthcare-associated pathogens with meropenem and vancomycin. Suspect patient may have progression of her pulmonary MAC and will require treatment for this once her initial acute respiratory tract illness is stabilized. As before, plan is to refer her to [facility] [place] for treatment of her MAC in light of the complexity of condition, including previous treatment and history of chronic liver disease. Thank you for the kind referral. JAY SAMUELS M.D. [id number]
[2018-07-31] MEDS ORDERED: NADOLOL 20 MG TABLET (FP) PO SCH (14:00)
[2018-07-31] MEDS ORDERED: INSULIN (NOVOLOG) ASPART 100 UNITS/ML 10ML VIAL SQ ONE (15:03)
--- NOTE | 2018-07-31 15:37 | PN ---
Progress Note, Physician Chief Complaint: EVENTS AND NOTES REVIEWED PATIENT IN RESPIRATORY DISTRESS WHEN SEEN ICU TEAM TREATING PATIENT FOR HYPOXIA - Current Medication List Current Medications: Active Medications Acetaminophen (Tylenol -) 650 mg PO Q6H PRN PRN Reason: PAIN LEVEL 1-5 Last Admin: 07/31/18 09:58 Dose: 650 mg Al Hydroxide/Mg Hydroxide (Mylanta Oral Suspension -) 30 ml PO Q6H PRN PRN Reason: DYSPEPSIA Last Admin: 07/30/18 10:28 Dose: 30 ml Albuterol Sulfate (Ventolin 0.083% Nebulizer Soln -) 1 amp NEB Q6H PRN PRN Reason: SHORT OF BREATH/WHEEZING Albuterol/Ipratropium (Duoneb -) 1 amp NEB Q6H PRN PRN Reason: SHORTNESS OF BREATH Last Admin: 07/31/18 15:09 Dose: 1 amp Aspirin (Ecotrin -) 81 mg PO DAILY [facility] Last Admin: 07/31/18 09:50 Dose: 81 mg Atorvastatin Calcium (Lipitor -) 10 mg PO HS [facility] Last Admin: 07/30/18 21:40 Dose: 10 mg Carbidopa/Levodopa (Sinemet 25/100 -) 1 each PO TID [facility] Last Admin: 07/31/18 14:11 Dose: 1 each Escitalopram Oxalate (Lexapro -) 10 mg PO DAILY [facility] Last Admin: 07/31/18 09:50 Dose: 10 mg Fludrocortisone Acetate (Florinef -) 0.1 mg PO DAILY [facility] Last Admin: 07/31/18 09:50 Dose: 0.1 mg Furosemide (Lasix Injection -) 40 mg IVPUSH DAILY [facility] Last Admin: 07/31/18 09:50 Dose: 40 mg Gabapentin (Neurontin -) 200 mg PO TID [facility] Last Admin: 07/31/18 14:11 Dose: 200 mg Heparin Sodium (Porcine) (Heparin -) 5,000 unit SQ TID [facility] Last Admin: 07/31/18 14:11 Dose: 5,000 unit Meropenem 1 gm/ Dextrose 100 mls @ 200 mls/hr IVPB Q8H-IV [facility] Last Admin: 07/31/18 09:51 Dose: 200 mls/hr Vancomycin HCl 1,250 mg/ (Dextrose) 250 mls @ 166.667 mls/hr IVPB Q12H [facility]; Protocol Last Admin: 07/31/18 06:28 Dose: 166.667 mls/hr Insulin Aspart (Novolog Vial Sliding Scale -) 1 vial SQ ACHS [facility]; Protocol Last Admin: 07/31/18 11:05 Dose: 4 units Lidocaine (Lidoderm Patch -) 1 patch TP DAILY [facility] Last Admin: 07/31/18 09:51 Dose: 1 patch Losartan Potassium (Cozaar -) 100 mg PO DAILY [facility] Last Admin: 07/31/18 09:50 Dose: 100 mg Melatonin (Melatonin) 5 mg PO HS PRN PRN Reason: INSOMNIA Miscellaneous (Lidoderm Patch Removal) 1 each MC DAILY@2200 [facility] Last Admin: 07/30/18 22:00 Dose: 1 each Nadolol (Corgard -) 20 mg PO DAILY [facility] Last Admin: 07/31/18 15:00 Dose: 20 mg Pantoprazole Sodium (Protonix -) 40 mg PO DAILY [facility] Last Admin: 07/31/18 09:51 Dose: 40 mg - Objective Vital Signs: Vital Signs Temperature 99.2 F 07/31/18 15:33 Pulse Rate 141 H 07/31/18 14:15 Respiratory Rate 27 H 07/31/18 14:15 Blood Pressure 153/72 07/31/18 14:15 O2 Sat by Pulse Oximetry (%) 96 07/31/18 10:38 Constitutional: Yes: Moderate Distress Cardiovascular: Yes: Tachycardia Respiratory: Yes: Nick-Purcell, On Venti-Mask Gastrointestinal: Yes: Soft Genitourinary: Yes: Incontinence Extremities: Yes: Other Labs: CBC, BMP 07/31/18 05:30 07/31/18 05:30 INR, PTT INR 1.37 (0.82-1.09) H 07/29/18 11:00 Problem List - Problems (1) Hypoglycemia Code(s): E16.2 - HYPOGLYCEMIA, UNSPECIFIED (2) Hypothermia Code(s): T68.XXXA - HYPOTHERMIA, INITIAL ENCOUNTER Qualifiers: Encounter type: initial encounter Qualified Code(s): T68.XXXA - Hypothermia , initial encounter (3) Pneumonia Code(s): J18.9 - PNEUMONIA, UNSPECIFIED ORGANISM Qualifiers: Pneumonia type: due to unspecified organism Laterality: bilateral Lung location: unspecified part of lung Qualified Code(s): J18.9 - Pneumonia, unspecified organism (4) Sepsis Code(s): A41.9 - SEPSIS, UNSPECIFIED ORGANISM (5) Acute hypoxemic respiratory failure Code(s): J96.01 - ACUTE RESPIRATORY FAILURE WITH HYPOXIA (6) Anemia Code(s): D64.9 - ANEMIA, UNSPECIFIED (7) Angina pectoris Code(s): I20.9 - ANGINA PECTORIS, UNSPECIFIED (8) Anxiety Code(s): F41.9 - ANXIETY DISORDER, UNSPECIFIED (9) Pulmonary Mycobacterium avium complex (MAC) infection Code(s): A31.0 - PULMONARY MYCOBACTERIAL INFECTION (10) Type 2 diabetes mellitus with diabetic neuropathic arthropathy Code(s): E11.610 - TYPE 2 DIABETES MELLITUS W DIABETIC NEUROPATHIC ARTHROPATHY Assessment/Plan IV ABX PER ID PULMONARY F/U INTUBATE IF NEEDED PATIENT HAS NOT RECEIVED MAC TREATMENT AT [facility] AND HAS BEEN NON-COMPLIANT WITH HER MEDICAL REGIMEN. ICU ADMISSION AND FOLLOW UP PPI DVT PROPHYLAXIS ADVANCED DIRECTIVE
[2018-07-31] MEDS: ALBUTEROL SO4 0.083% IH SOL 2.5 MG/3 ML VIAL.NEB. NEB PRN (21:30)
[2018-07-31] MEDS ORDERED: NYSTATIN 100,000 UNIT/GM TOPICAL CREAM 15 GM TUBE TP SCH (22:00)
[2018-07-31] MEDS ORDERED: LORazepam 2 MG/ML SDV VIAL ONE (22:23)
[2018-07-31 22:48] LABS: ARTERIAL BLOOD GAS pH 7.32 (7.35-7.45)
[2018-07-31 22:49] LABS: ARTERIAL BLD GAS O2 SATURATION 83.7 % (95-98); ARTERIAL BLOOD GAS BASE EXCESS 1.7 meq/l (-2-2); ARTERIAL BLOOD GAS PCO2 55.4 mmHg (35-45); ARTERIAL BLOOD GAS PO2 56.6 mmHg (80-105)
[2018-07-31] MEDS: ATORVASTATIN CA 10 MG TABLET (FP) PO SCH (22:53)
[2018-07-31] MEDS: LIDOCAINE PATCH REMOVAL MC SCH (22:53)
[2018-07-31] MEDS: SILVER SULFADIAZINE 1% TOP CREAM 50 GM JAR TP SCH (22:54)
--- NOTE | 2018-07-31 22:59 | PN ---
Progress Note (short form) - Note Progress Note: 07/31/18 Monitor at the nurses station showed Aystole, BP 143/93 mmHg, Spo2 undetectable. Immediately went to patient's bed side, called code 99 at 10:21 pm, checked the carotid pulse first before starting chest compressions, patient had feeble pulse. Patient had taken off the high flow oxygen so it was placed back. Slowly heart rate went up to 70's-80's without any medication, saturation was 98 % at 50 % Fio2 HFO. Stat ABG done which showed pH 7.32; Co2- 55.4; Po2 56. On the monitor, there was a pause of 7.23 sec Case discussed with Dr. Viveros, low threshold for intubation. 08/01/18 At 3:46, RN noticed patient went into bradycardia from 26--> 20 bpm then went into asystole. Code 99 called at 3:47 AM, after few seconds, HR went back up to 70-s-80 bpm without any medications, no chest compressions required. Patient had taken out the high flow oxygen, after placing it back, Spo2 was 95 % . Patient started talking. Stat ABG done: pH 7.31, Pco2 60.6, Po2 81. On the monitor, she had 3 pauses, each < 3 seconds. Upon reassessment, patient on High flow oxygen maintaining oxygen saturation 95 % but has worsening shortness of breath with RR about 30 consistently. Explained to the patient, that if her breathing worsens, plan is to intubate her. Patient denied. Call placed to the son Ji Pace at 4:45 AM, there was no answer. He called back after 5 minutes, explained to him that if needed, patient requires intubation, he agreed for intubation and reinforced that patient is a FULL CODE. Explained to the patient, she agrees for Intubation if needed. Repeat ABG shows: pH 7,31; Dcf608.1, Po2 60.7 at 50 % Fio2 HFO. Increased Fio2 . Call placed to [facility] transfer center to get an update of the status of the transfer. Last night, transfer center had called the day resident, case was discussed with Dr. Norris (Fellow). Spoke with Dr. Norris this and updated. He accepts the patient, awaiting for bed availability. They requested for face sheet and disc of CT scan. Signed out to the day team.
[2018-07-31] MEDS ORDERED: LORazepam 2 MG/ML SDV VIAL IVPUSH ONE (23:06)
--- NOTE | 2018-08-01 00:14 | PN ---
Progress Note (short form) - Note Progress Note: Episodic Note 08/01@11pm Code 99 was called by ICU team for asystole. She regained consciousness without defibrillation or medications. As per ICU resident patient became hypoxic after removing high flow oxygen therapy and was found to have asystole. 12am Followed up with patient at bedside and she has no evidence of hypoxia on high flow oxygen therapy. She is in no acute respiratory distress, no use of accessory muscles. She denies shortness of breath. Heart rate 96, BP 160/70 Oxygen saturation 96%. Continue to monitor on telemetry, oxygen saturation levels and hemodynamic status closely. Visit type - Emergency Visit Emergency Visit: Yes ED Registration Date: 07/29/18 Care time: The patient presented to the Emergency Department on the above date and was hospitalized for further evaluation of their emergent condition. - New Patient This patient is new to me today: Yes Date on this admission: 08/01/18 - Critical Care Critical Care patient: Yes Total Critical Care Time (in minutes): 10 - Discharge Referral Referred to [facility] No
[2018-08-01] MEDS ORDERED: PT OWN MED DRAWER 7, Y5N ONE ×3 (02:08→17:14)
[2018-08-01] MEDS: MEROPENEM 1 GM in DEXTROSE 5%-WATER 100 ML IVPB SCH ×3 (02:09→17:19)
[2018-08-01] MEDS ORDERED: LOSARTAN POTASSIUM 50 MG TABLET (FP) PO ONE (03:57)
[2018-08-01 04:01] LABS: ARTERIAL BLD GAS O2 SATURATION 93.9 % (95-98); ARTERIAL BLOOD GAS BASE EXCESS 2.9 meq/l (-2-2)
[2018-08-01 04:02] LABS: ALLENS TEST POSITIVE
[2018-08-01 04:03] LABS: ARTERIAL BLOOD GAS PCO2 60.6 mmHg (35-45); ARTERIAL BLOOD GAS pH 7.31 (7.35-7.45)
[2018-08-01] MEDS ORDERED: hydrALAZINE HCL 20 MG/ML VIAL IVPUSH ONE (04:12)
[2018-08-01] MEDS ORDERED: hydrALAZINE HCL 20 MG/ML VIAL ONE (04:16)
[2018-08-01] MEDS: ALBUTEROL SO4 0.083% IH SOL 2.5 MG/3 ML VIAL.NEB. NEB PRN (04:45)
[2018-08-01] MEDS: VANCOMYCIN HCL 1,250 MG in DEXTROSE 5%-WATER - 250 ML IVPB SCH (05:07)
[2018-08-01 05:20] LABS: ARTERIAL BLD GAS O2 SATURATION 90.9 % (95-98); ARTERIAL BLOOD GAS BASE EXCESS 5.5 meq/l (-2-2); ARTERIAL BLOOD GAS PCO2 44.1 mmHg (35-45); ARTERIAL BLOOD GAS PO2 60.7 mmHg (80-105); ARTERIAL BLOOD GAS pH 7.45 (7.35-7.45)
[2018-08-01 05:21] LABS: ALLENS TEST POSITIVE
[2018-08-01] MEDS: CARBIDOPA/LEVODOPA 25/100 TABLET (FP) PO SCH ×2 (06:03→13:21)
[2018-08-01] MEDS: GABAPENTIN 100 MG CAPSULE (FP) PO SCH ×2 (06:03→13:21)
[2018-08-01] MEDS: HEPARIN NA (PORCINE) 5,000 UNITS/ML 1ML VIAL SQ SCH ×2 (06:03→13:20)
[2018-08-01] MEDS: INSULIN SLIDING SCALE (NOVOLOG) 1 VIAL SQ SCH ×3 (06:20→17:56)
[2018-08-01 07:01] LABS: BASO % 0.2 % (0-2.0); EOS % 1.5 % (0-4.5); HEMATOCRIT 32.7 % (32.4-45.2); HEMOGLOBIN 11.2 GM/dL (10.7-15.3); LYMPH % 6.4 % (8-40); MCH 31.9 pg (25.7-33.7); MCHC 34.3 g/dl (32.0-36.0); MEAN PLT VOLUME 7.6 fl (7.5-11.1); MONO % 4.1 % (3.8-10.2); NEUT % 87.8 % (42.8-82.8); PLATELET COUNT 189 K/MM3 (134-434); RBC 3.52 M/mm3 (3.60-5.2); RDW 16.8 % (11.6-15.6); WHITE BLOOD COUNT 21.2 K/mm3 (4.0-10.0)
--- NOTE | 2018-08-01 07:21 | PN ---
Physical Exam: SUBJECTIVE: Patient seen and examined, reported abdominal discomfort. Pt denied shortness of breath. Admitted to productive cough. OBJECTIVE: Vital Signs Period Temp Pulse Resp BP Sys/Donovan Pulse Ox Last 24 Hr 99.2 F-99.6 F 93-141 24-32 124-157/67-87 94-100 GENERAL: The patient is awake, alert, and fully oriented, in no acute distress. HEAD: Normal with no signs of trauma. EYES: PERRL, extraocular movements intact, sclera anicteric, conjunctiva clear. No ptosis. ENT: Ears normal, nares patent, oropharynx clear without exudates, moist mucous membranes. NECK: Trachea midline, full range of motion, supple. LUNGS: Breath sounds equal, bilateral crackles. using accessory muscles. unable to speak full sentences. HEART: Regular rate and rhythm, S1, S2 without murmur, rub or gallop. ABDOMEN: Soft, diffuse tenderness, distended, normoactive bowel sounds, no guarding, no rebound, no hepatosplenomegaly, no masses. EXTREMITIES: 2+ pulses, warm, well-perfused, no edema. NEUROLOGICAL: Cranial nerves II through XII grossly intact. Normal speech, gait not observed. PSYCH: Normal mood, normal affect. SKIN: Warm, dry. stage 1 sacral and gluteal ulcer. Laboratory Results - last 24 hr 07/31/18 07/31/18 07/31/18 05:30 11:04 12:05 WBC 10.9 H RBC 3.01 L Hgb 10.2 L Hct 28.4 L MCV 94.5 MCH 34.0 H MCHC 35.9 RDW 16.5 H Plt Count 132 L MPV 7.6 Anticoagulation Therapy Puncture Site Right radial ABG pH 7.45 ABG pCO2 at Pt Temp 41.5 ABG pO2 at Pt Temp 65.4 L ABG HCO3 28.1 H ABG O2 Sat (Measured) 92.5 L ABG O2 Content 13.5 L ABG Base Excess 4.1 H Samir Test Positive O2 Delivery Device High flow Oxygen Flow Rate 40% Vent Mode Vent Rate Mechanical Rate PEEP Pressure Support Vent POC Glucometer 284 07/31/18 07/31/18 07/31/18 14:52 16:28 22:30 WBC RBC Hgb Hct MCV MCH MCHC RDW Plt Count MPV Anticoagulation Therapy No Result Required. Puncture Site No Result Required. ABG pH 7.32 L ABG pCO2 at Pt Temp 55.4 H ABG pO2 at Pt Temp 56.6 L ABG HCO3 27.9 H ABG O2 Sat (Measured) 83.7 L ABG O2 Content No Result Required. ABG Base Excess 1.7 Samir Test No Result Required. O2 Delivery Device No Result Required. Oxygen Flow Rate No Result Required. Vent Mode No Result Required. Vent Rate No Result Required. Mechanical Rate No Result Required. PEEP Pressure Support Vent No Result Required. POC Glucometer 306 358 07/31/18 08/01/18 08/01/18 22:32 03:55 05:10 WBC RBC Hgb Hct MCV MCH MCHC RDW Plt Count MPV Anticoagulation Therapy Puncture Site Right radial Right radial ABG pH 7.31 L 7.45 ABG pCO2 at Pt Temp 60.6 H 44.1 ABG pO2 at Pt Temp 81.0 60.7 L ABG HCO3 29.8 H 29.8 H ABG O2 Sat (Measured) 93.9 L 90.9 L ABG O2 Content 15.0 14.4 L ABG Base Excess 2.9 H 5.5 H Samir Test Positive Positive O2 Delivery Device High flow nc High flow nc Oxygen Flow Rate 60l/ 80% 50l/ 50% Vent Mode Vent Rate Mechanical Rate PEEP 0.0 0.0 Pressure Support Vent POC Glucometer 290 08/01/18 06:19 WBC RBC Hgb Hct MCV MCH MCHC RDW Plt Count MPV Anticoagulation Therapy Puncture Site ABG pH ABG pCO2 at Pt Temp ABG pO2 at Pt Temp ABG HCO3 ABG O2 Sat (Measured) ABG O2 Content ABG Base Excess Samir Test O2 Delivery Device Oxygen Flow Rate Vent Mode Vent Rate Mechanical Rate PEEP Pressure Support Vent POC Glucometer 162 Active Medications Generic Name Dose Route Start Last Admin Trade Name Freq PRN Reason Stop Dose Admin Acetaminophen 650 mg 07/29/18 19:01 07/31/18 09:58 Tylenol - PO 650 mg Q6H PRN Administration PAIN LEVEL 1-5 Al Hydroxide/Mg Hydroxide 30 ml 07/30/18 09:14 07/30/18 10:28 Mylanta Oral Suspension - PO 30 ml Q6H PRN Administration DYSPEPSIA Albuterol Sulfate 1 amp 07/30/18 09:15 08/01/18 04:45 Ventolin 0.083% Nebulizer Soln - NEB 1 amp Q6H PRN Administration SHORT OF BREATH/WHEEZING Albuterol/Ipratropium 1 amp 07/29/18 18:58 07/31/18 15:09 Duoneb - NEB 1 amp Q6H PRN Administration SHORTNESS OF BREATH Aspirin 81 mg 07/30/18 10:00 07/31/18 09:50 Ecotrin - PO 81 mg DAILY KANNAN Administration Atorvastatin Calcium 10 mg 07/29/18 22:00 07/31/18 22:53 Lipitor - PO 10 mg HS KANNAN Administration Carbidopa/Levodopa 1 each 07/29/18 22:00 08/01/18 06:03 Sinemet 25/100 - PO 1 each TID KANNAN Administration Escitalopram Oxalate 10 mg 07/30/18 10:00 07/31/18 09:50 Lexapro - PO 10 mg DAILY KANNAN Administration Fludrocortisone Acetate 0.1 mg 07/30/18 10:00 07/31/18 09:50 Florinef - PO 0.1 mg DAILY KANNAN Administration Furosemide 40 mg 07/31/18 10:00 07/31/18 09:50 Lasix Injection - IVPUSH 40 mg DAILY KANNAN Administration Gabapentin 200 mg 07/29/18 22:00 08/01/18 06:03 Neurontin - PO 200 mg TID KANNAN Administration Heparin Sodium (Porcine) 5,000 unit 07/31/18 06:00 08/01/18 06:03 Heparin - SQ 5,000 unit TID KANNAN Administration Meropenem 1 gm/ Dextrose 100 mls @ 200 mls/hr 07/30/18 12:00 08/01/18 02:09 IVPB 200 mls/hr Q8H-IV KANNAN Administration Vancomycin HCl 1,250 mg/ 250 mls @ 166.667 mls/hr 07/30/18 17:00 08/01/18 05: 07 Dextrose IVPB 166.667 mls/hr Q12H KANNAN Administration Protocol Insulin Aspart 1 vial 07/29/18 22:00 08/01/18 06:20 Novolog Vial Sliding Scale - SQ Not Given ACHS KANNAN Protocol Lidocaine 1 patch 07/31/18 10:00 07/31/18 09:51 Lidoderm Patch - TP 1 patch DAILY KANNAN Administration Losartan Potassium 100 mg 07/30/18 10:00 07/31/18 09:50 Cozaar - PO 100 mg DAILY KANNAN Administration Miscellaneous 1 each 07/30/18 22:00 07/31/18 22:53 Lidoderm Patch Removal MC 1 each DAILY@2200 KANNAN Administration Nadolol 20 mg 07/31/18 14:00 07/31/18 15:00 Corgard - PO 20 mg DAILY KANNAN Administration Pantoprazole Sodium 40 mg 07/30/18 10:00 07/31/18 09:51 Protonix - PO 40 mg DAILY KANNAN Administration Saliva Substitute 1 applic 08/01/18 10:00 Mouthkote Solution - MM DAILY KANNAN Silver Sulfadiazine 1 applic 07/31/18 22:00 07/31/18 22:54 Silvadene - TP 1 applic BID KANNAN Administration ASSESSMENT/PLAN: 78 year old female with PMH COPD, asthma, cirrhosis secondary to ETOH abuse, esophageal varices, HTN, HLD, anemia, breast cancer s/p lumpectomy, parkinsons, SBP presented to ED for hypoglycemia and hypoxia. Pt was found to be hypoxic on the floors with BIPAP and transferred to ICU. NEURO -Alert and oriented -Continue to monitor -Lexapro 10 mg PO daily -Melatonin 5 mg PO HS #HX PARKINSONS -Carbidopa/levodopa 25/100 1 each PO TID CARDIOVASCULAR #ASYSTOLE OVERNIGHT -Pt had 2 episodes of asystole overnight, both episodes occurring after she removed the high flow O2 -No chest compressions or ACLS medications were given, pt resolved with replacement of high flow O2 -Wrist restraints placed -Continue to monitor -Cardiology consulted -Hold Nadolol per cardiology #HX HTN -Losartan 100 mg PO daily -Hold Nadolol 20 mg PO daily per cardio -1 dose Hydralazine 5 mg IV given overnight for HTN 170/90 -Continue to monitor #HX CAD -On home ASA 81 mg PO daily #HX CHF -Lasix 40 mg IV daily -BNP elevation with no peripheral edema likely due to pulmonary HTN #HX HLD -Atorvastatin 10 mg PO HS RESPIRATORY #BILATERAL UPPER AND LOWER LOBE INFILTRATES -HX of MAC and Pseudamonas -Multiple attempts were made to have pt follow up outpatient for MAC treatment, which she never received. -Pt accepted to [place], plan for transfer today -Meropenem per ID -Vancomycin per ID -HOB elevated -WBC increasing 10.9>>21.2 -CXR similar to prior -Sputum gram stain: moderate polymorphonuclear cells, gram negative bacilli #ACUTE HYPOXIA -High Flow switched to BIPAP rate 12, 12/6, FiO2 40% -Continue to monitor #HX COPD/ASTHMA -On home Duonebs 1 amp NEB Q6H PRN -On home Fludrocortisone Acetate 0.1 mg PO daily GI HX GERD -On home protonix 40 mg PO daily ABDOMINAL DISTENSION -KUB: air filled loops of small and large bowel. no free air. -Likely secondary to positive pressure ventilation -Will monitor ENDO #HX OF DIABETES -Insulin sliding scale SKIN #STAGE 1 SACRAL AND GLUTEAL ULCER -Sulfasalazine ordered PPX -Protonix 40 mg PO daily -Heparin 5000U SQ TID FEN -No IVF -Low sodium diet -Monitor electrolytes -Replete Mg DISPO Transfer to [place] for suspected MAC treatment Primary team, Dr. Valente, contacted. Transfer documents signed by pt's son. Visit type - Emergency Visit Emergency Visit: Yes ED Registration Date: 07/29/18 Care time: The patient presented to the Emergency Department on the above date and was hospitalized for further evaluation of their emergent condition. - New Patient This patient is new to me today: No - Critical Care Critical Care patient: Yes Total Critical Care Time (in minutes): 35 Critical Care Statement: The care of this patient involved high complexity decision making to prevent further life threatening deterioration of the patient 's condition and/or to evaluate & treat vital organ system(s) failure or risk of failure. - Discharge Referral Referred to [facility] No
[2018-08-01 07:31] LABS: ALBUMIN 1.5 g/dl (3.4-5.0); ALK PHOS 374 U/L (45-117); ANION GAP 9 MMOL/L (8-16); BILIRUBIN,TOTAL 1.7 mg/dL (0.2-1); BLOOD UREA NITROGEN 17 mg/dL (7-18); CHLORIDE 103 mmol/L (98-107); CO2 29 mmol/L (21-32); CREATININE 0.7 mg/dL (0.55-1.3); GLUCOSE,RANDOM 173 mg/dL (74-106); MAGNESIUM 1.5 mg/dL (1.8-2.4); N-TERMINAL BNP 4102.2 pg/ml (5-450); POTASSIUM 3.7 mmol/L (3.5-5.1); SGOT/AST 43 U/L (15-37); SGPT/ALT 9 U/L (13-61); SODIUM 140 mmol/L (136-145); TOT PROT 6.2 g/dl (6.4-8.2)
[2018-08-01] MEDS ORDERED: MAGNESIUM SULF 50% (8.12 MEQ/2 ML-1 GM VIAL) IVPB ONE (08:45)
--- NOTE | 2018-08-01 09:07 | PN ---
Progress Note (short form) - Note Progress Note: Spoke with Patient's son -Ji Pace this morning at 9.06. He says he is the health care proxy initially thought health care documentation was not on file, but on conversation with Meghan, saw it is scanned in and dated 2011 with Jakob son as second in line as healthcare proxy. Over the phone, Ji Pace Confirmed mother is full code. Ji Pace gave consent over the phone to transfer mother to [facility]. Consent over the phone was witnessed by Dr Crowder. Ji Pace also came in and signed hard copy transfer consent for the mom.
[2018-08-01] MEDS: LIDOCAINE 5% TOPICAL PATCH TP SCH (09:37)
[2018-08-01] MEDS: FUROSEMIDE 40 MG/4 ML INJECTABLE VIAL IVPUSH SCH (09:37)
[2018-08-01] MEDS: FLUDROCORTISONE ACETATE 0.1 MG TABLET (FP) PO SCH (09:38)
[2018-08-01] MEDS: SILVER SULFADIAZINE 1% TOP CREAM 50 GM JAR TP SCH (09:40)
[2018-08-01] MEDS ORDERED: LYTES/YERBA SANTA 240 ML BOTTLE MM SCH (10:00)
--- NOTE | 2018-08-01 10:01 | PN ---
Progress Note, Physician History of Present Illness: Recently admitted at [facility] (07/08-07/20/18) for pneumonia, there was a suspicion for MOTTS, was discussed with ID last admission, there was no indication for treatment at that time for MOTTS Now comes in with productive cough x [address] chest suggestive of new infiltrates Transferred to ICU for worsening shortness of breath. - Current Medication List Current Medications: Active Medications Acetaminophen (Tylenol -) 650 mg PO Q6H PRN PRN Reason: PAIN LEVEL 1-5 Last Admin: 07/31/18 09:58 Dose: 650 mg Al Hydroxide/Mg Hydroxide (Mylanta Oral Suspension -) 30 ml PO Q6H PRN PRN Reason: DYSPEPSIA Last Admin: 07/30/18 10:28 Dose: 30 ml Albuterol Sulfate (Ventolin 0.083% Nebulizer Soln -) 1 amp NEB Q6H PRN PRN Reason: SHORT OF BREATH/WHEEZING Last Admin: 08/01/18 04:45 Dose: 1 amp Albuterol/Ipratropium (Duoneb -) 1 amp NEB Q6H PRN PRN Reason: SHORTNESS OF BREATH Last Admin: 07/31/18 15:09 Dose: 1 amp Aspirin (Ecotrin -) 81 mg PO DAILY [facility] Last Admin: 07/31/18 09:50 Dose: 81 mg Atorvastatin Calcium (Lipitor -) 10 mg PO HS [facility] Last Admin: 07/31/18 22:53 Dose: 10 mg Carbidopa/Levodopa (Sinemet 25/100 -) 1 each PO TID KANNAN Last Admin: 08/01/18 06:03 Dose: 1 each Escitalopram Oxalate (Lexapro -) 10 mg PO DAILY [facility] Last Admin: 07/31/18 09:50 Dose: 10 mg Fludrocortisone Acetate (Florinef -) 0.1 mg PO DAILY [facility] Last Admin: 08/01/18 09:38 Dose: 0.1 mg Furosemide (Lasix Injection -) 40 mg IVPUSH DAILY [facility] Last Admin: 08/01/18 09:37 Dose: 40 mg Gabapentin (Neurontin -) 200 mg PO TID KANNAN Last Admin: 08/01/18 06:03 Dose: 200 mg Heparin Sodium (Porcine) (Heparin -) 5,000 unit SQ TID KANNAN Last Admin: 08/01/18 06:03 Dose: 5,000 unit Meropenem 1 gm/ Dextrose 100 mls @ 200 mls/hr IVPB Q8H-IV [facility] Last Admin: 08/01/18 09:36 Dose: 200 mls/hr Vancomycin HCl 1,250 mg/ (Dextrose) 250 mls @ 166.667 mls/hr IVPB Q12H [facility]; Protocol Last Admin: 08/01/18 05:07 Dose: 166.667 mls/hr Insulin Aspart (Novolog Vial Sliding Scale -) 1 vial SQ ACHS [facility]; Protocol Last Admin: 08/01/18 06:20 Dose: Not Given Lidocaine (Lidoderm Patch -) 1 patch TP DAILY [facility] Last Admin: 08/01/18 09:37 Dose: 1 patch Losartan Potassium (Cozaar -) 100 mg PO DAILY [facility] Last Admin: 07/31/18 09:50 Dose: 100 mg Miscellaneous (Lidoderm Patch Removal) 1 each MC DAILY@2200 [facility] Last Admin: 07/31/18 22:53 Dose: 1 each Nadolol (Corgard -) 20 mg PO DAILY [facility] Last Admin: 07/31/18 15:00 Dose: 20 mg Pantoprazole Sodium (Protonix -) 40 mg PO DAILY [facility] Last Admin: 07/31/18 09:51 Dose: 40 mg Saliva Substitute (Mouthkote Solution -) 1 applic MM DAILY [facility] Silver Sulfadiazine (Silvadene -) 1 applic TP BID [facility] Last Admin: 08/01/18 09:40 Dose: 1 applic - Objective Vital Signs: Vital Signs Temperature 99.2 F 07/31/18 15:33 Pulse Rate 96 H 08/01/18 08:00 Respiratory Rate 27 H 08/01/18 09:00 Blood Pressure 132/76 08/01/18 08:00 O2 Sat by Pulse Oximetry (%) 94 L 08/01/18 09:00 Cardiovascular: Yes: S1, S2 Respiratory: Yes: Diminished, Rales, Rhonchi Labs: CBC, BMP 08/01/18 05:30 08/01/18 05:30 INR, PTT INR 1.37 (0.82-1.09) H 07/29/18 11:00 Problem List - Problems (1) Acute hypoxemic respiratory failure Assessment/Plan: high flow o2 Continue IV Meropenam and IV Vancomycin, ID on board, blood cultures pending lactic acid on admission, 2.8--> 2.4--> pending, will trend Flu negative Continue duoneb/Albuterol Code(s): J96.01 - ACUTE RESPIRATORY FAILURE WITH HYPOXIA (2) Pneumonia Assessment/Plan: -For Transfer to [facility] for tertiary care Code(s): J18.9 - PNEUMONIA, UNSPECIFIED ORGANISM Qualifiers: Pneumonia type: due to unspecified organism Laterality: bilateral Lung location: unspecified part of lung Qualified Code(s): J18.9 - Pneumonia, unspecified organism (3) Arrhythmia Assessment/Plan: when off o2 avoid b-blockers cardio consult Code(s): I49.9 - CARDIAC ARRHYTHMIA, UNSPECIFIED
[2018-08-01] MEDS: ESCITALOPRAM OXALATE 10 MG TABLET (FP) PO SCH (11:25)
[2018-08-01] MEDS: ASPIRIN COATED 81 MG TABLET.EC PO SCH (11:25)
[2018-08-01] MEDS: LOSARTAN POTASSIUM 50 MG TABLET (FP) PO SCH (11:25)
[2018-08-01] MEDS: PANTOPRAZOLE 40 MG TABLET (FP) PO SCH (11:25)
--- NOTE | 2018-08-01 11:35 | CON.CARD ---
Consult Consult Specialty:: Cardiology Referred by:: Dr. Valente, ICU Reason for Consultation:: sinus pauses, bradycardia, sinus tach - History of Present Illness Chief Complaint: sob History of Present Illness: 78 year old woman with pmh CAD s/p stent many years ago unknown details, COPD, asthma, etoh cirrhosis with esophageal varices, HTN, HLD, breast ca s/p lumpectomy, parkinsons, admitted with hypoglycemia and hypoxic resp failure. requiring high flow O2. Pt noted to have multiple episodes of bradyarrhythmia, significant sinus pauses all occurring during episodes of hypoxia when her high flow O2 has been off. otherwise sinus tachycardia. pt seen and examined today, sob. family at bedside. pt is planned for transfer to [facility] today. pt denies any chest pain, palpitations, lightheadedness, dizziness. no syncope or near syncope prior to admission. - History Source History Provided By: Patient, Family Member Limitations to Obtaining History: No Limitations - Past Medical History [employer]: Yes: CVA Cardio/Vascular: Yes: CAD (stent), HTN, Hyperlipdemia Pulmonary: Yes: Asthma Gastrointestinal: Yes: Ascites (h/o sbp intolerant to bactrim and levaquin), Esophageal Varices (h/o bleeding, banding and on nadalol), GI Bleed (variceal and duodenal ulcer), Peptic Ulcer Disease, Other (diabetic gastropareis, h/o hpylori rxed with pylera) Hepatobiliary: Yes: Cirrhosis Psych: Yes: Depression Endocrine: Yes: Diabetes Mellitus (historically poor control) Dermatology: Yes: Other (SACRAL DECUBITI) - Past Surgical History Past Surgical History: Yes: Colonoscopy (multiple large polyps. poor prep in past.), Stent (cardiac), Tonsillectomy, Upper Endoscopy (h/o esoph varices. on nadalol. s/p banding. due to surveillance egd in 04/10/15) - Alcohol/Substance Use Hx Alcohol Use: No History of Substance Use: reports: None - Smoking History Smoking history: Unknown if ever smoked Have you smoked in the past 12 months: No Aproximately how many cigarettes per day: 0 If you are a former smoker, when did you quit?: over 30 years ago - Social History Usual Living Arrangement: Custodial ADL: Support Services History of Recent Travel: Yes Home Medications - Allergies Allergies/Adverse Reactions: Allergies Allergy/AdvReac Type Severity Reaction Status Date / Time levofloxacin [From Levaquin] Allergy Intermediate Rash Verified 07/08/18 12:11 Penicillins Allergy Rash Verified 07/08/18 12:11 sulfamethoxazole AdvReac Intermediate Verified 07/08/18 12:11 [From Bactrim] trimethoprim [From Bactrim] AdvReac Intermediate Verified 07/08/18 12:11 - Home Medications Home Medications: Ambulatory Orders Atorvastatin Calcium [Lipitor] 10 mg PO HS 05/07/18 Heparin - 5,000 unit SQ BID vial 05/13/18 Zinc Oxide 20% Topical Oint 454 gm NR ASDIR 06/28/18 Guaifenesin/D-Methorphan Hb [Diabetic Tussin Dm -] 10 ml PO Q4H PRN ml Insulin Lispro [Humalog] 0 unit SQ ASDIR 07/08/18 Acetaminophen [Tylenol .Regular Strength -] 650 mg PO Q6H PRN tablet 07/19/18 Albuterol 2.5/Ipratropium 0.5 [Duoneb -] 1 amp NEB RTID amp 07/19/18 Aspirin Coated [Ecotrin -] 81 mg PO DAILY tablet.ec 07/19/18 Carbidopa/Levodopa 25/100 [Sinemet 25/100 -] 1 each PO TID tablet 07/19/18 Escitalopram Oxalate [Lexapro -] 10 mg PO DAILY tablet 07/19/18 Furosemide [Lasix -] 40 mg PO DAILY tablet 07/19/18 Gabapentin [Neurontin -] 200 mg PO TID capsule 07/19/18 Insulin (Levemir) [Levemir Vial] 40 units SQ HS units 07/19/18 Losartan Potassium [Cozaar -] 100 mg PO DAILY tablet 07/19/18 Melatonin 5 mg PO HS PRN tab 07/19/18 Nadolol [Corgard -] 20 mg PO DAILY tablet 07/19/18 Pantoprazole Sodium [Protonix -] 40 mg PO DAILY tablet.ec 07/19/18 Potassium Chloride [Potassium Chloride Oral Liquid] 40 meq PO BID cup 07/19/18 Fludrocortisone Acetate [Florinef -] 0.1 mg PO DAILY 07/29/18 Prednisone 20 mg PO DAILY 07/29/18 Family Disease History - Family Disease History Family Disease History: Diabetes: Brother (4 brothers), Other: Father ( 80's: unclear cancer), Mother ( 90's, unclear cause), Brother, Sister ( 7 sisters), Son (3, 1 : does not recall cause), Daughter (3) Review of Systems - Review of Systems Constitutional: reports: Lethargy, Weakness. denies: No Symptoms, Chills, Diaphoresis, Fever, Loss of Appetite, Malaise, Night Sweats, Unintentional Wgt. Loss, Other Eyes: denies: No Symptoms, Blind Spots, Blurred Vision, Double Vision, Eye Pain , Floaters, Photophobia, Recent Change in Vision, Other HENT: denies: No Symptoms, Difficult Swallowing, Ear Discharge, Ear Pain, Epistaxis, Gingival Bleeding, Hearing Loss, Mouth Swelling, Nasal Congestion, Ocular Prosthesis, Throat Pain, Toothache, Ringing in Ears, Other Neck: denies: No Symptoms, Decreased ROM, Lumps, Pain on Movement, Stiffness, Swollen Glands, Tenderness, Other Cardiovascular: reports: Shortness of Breath. denies: No Symptoms, Chest Pain, Edema, Palpitations, Other Respiratory: reports: SOB, SOB on Exertion. denies: No Symptoms, Cough, Exercise Intolerance, Hemoptysis, Orthopnea, PND, Snoring, Wheezing, Other Gastrointestinal: denies: No Symptoms, Abdominal Pain, Bloating, Constipation, Diarrhea, Dysphagia, Indigestion, Melena, Nausea, Rectal Bleeding, Vomiting, Vomiting Blood, Other Genitourinary: denies: No Symptoms, Burning, Discharge, Dysuria, Flank Pain, Frequency, Hematuria, Incontinence, Lesions, Menses, Pain, Testicular Mass, Testicular Pain, Testicular Swelling, Urgency, Vaginal Bleeding, Other Breasts: denies: No Symptoms Reported, See HPI, Breast Implants, Discharge from Nipple, Lumps, Pain, Skin Changes, Other Musculoskeletal: denies: No Symptoms, Back Pain, Crepitus, Decreased ROM, Extremity Pain, Joint Pain, Joint Swelling, Muscle Pain, Muscle Cramps, Muscle Weakness, Other Integumentary: denies: No Symptoms, Blister, Bruising, Change in Color, Eczema, Erythema, Incision, Lesions, Lump, Pallor, Pruritis, Rash, Wound, Other Neurological: denies: No Symptoms, Change in LOC, Change in Speech, Confusion, Dizziness, Headache, Incoordination, Numbness, Parasthesia, Pre-Existing Deficit , Seizure, Syncope, Tremors, Unsteady Gait, Weakness, Other Endocrine: denies: No Symptoms, Excessive Sweating, Flushing, Increased Hunger, Increased Thirst, Intolerance to Cold, Intolerance to Heat, Unexplained Weight Gain, Unexplained Weight Loss, Other Hematology/Lymphatic: denies: No Symptoms, Easily Bruised, Excessive Bleeding, Swollen Glands, Other Psychiatric: denies: No Symptoms, Altered Sleep Pattern, Anxiety, Depression, Hallucinations, Panic, Paranoia, Suicidal, Other - Risk Factors Known Risk Factors: Yes: Age, Hypercholesterolemia, Hypertension Vital Signs: Vital Signs Temperature 99.2 F 07/31/18 15:33 Pulse Rate 96 H 08/01/18 08:00 Respiratory Rate 27 H 08/01/18 09:00 Blood Pressure 132/76 08/01/18 08:00 O2 Sat by Pulse Oximetry (%) 94 L 08/01/18 09:00 Constitutional: Yes: Mild Distress Eyes: Yes: Conjunctiva Clear, EOM Intact HENT: Yes: Atraumatic, Normocephalic Neck: Yes: Supple, Trachea Midline Respiratory: Yes: Regular, On Venti-Mask, Rhonchi, SOB, Tachypnea. No: Rales Gastrointestinal: Yes: Normal Bowel Sounds, Soft Cardiovascular: Yes: Tachycardia. No: Regular Rate and Rhythm, Bradycardia, Pulse Irregular, Gallop, Rub, Varicosities JVD: No Carotid Bruit: No PMI: Non-Displaced Heart Sounds: Yes: S1, S2. No: Split S2, S3, S4, Clicks, Gallop, Rub, Bruit Murmur: No: Systolic Murmur, Diastolic Murmur Extremities: Yes: WNL Edema: No Peripheral Pulses WNL: Yes Neurological: Yes: Alert, Oriented Psychiatric: Yes: Alert, Oriented - Other Data Labs, Other Data: CBC, BMP 08/01/18 05:30 08/01/18 05:30 INR, PTT INR 1.37 (0.82-1.09) H 07/29/18 11:00 Troponin, BNP 08/01/18 05:30 B-Natriuretic Peptide 4102.2 H Troponin, BNP 08/01/18 05:30 B-Natriuretic Peptide 4102.2 H ekg sinus tach 119bpm otherwise normal ecg Imaging - Results Chest X-ray: Report Reviewed, Image Reviewed EKG: Report Reviewed, Image Reviewed Other: Report Reviewed, Image Reviewed (tele-sinus tach, episodes of sinus pauses up to 7 sec) Assessment/Plan 78 year old woman with pmh CAD s/p stent many years ago unknown details, COPD, asthma, etoh cirrhosis with esophageal varices, HTN, HLD, breast ca s/p lumpectomy, parkinsons, admitted with hypoglycemia and hypoxic resp failure. requiring high flow O2. Pt noted to have multiple episodes of bradyarrhythmia, significant sinus pauses all occurring during episodes of hypoxia when her high flow O2 has been off. otherwise sinus tachycardia. pt is planned for transfer to [facility] today. pt denies any chest pain, palpitations, lightheadedness, dizziness. no syncope or near syncope prior to admission. arrhythmia-frequent sinus pauses all occurring when pt hypoxic after removing her high flow O2 -otherwise has been sinus tach -maintain SaO2 -stop nadolol if safe from GI standpoint (on it for portal HTN not cardiac reasons), would not aggressively treat sinus tach with AV geovany blockers as it is driven by her sob, hypoxia -no indication for PPM at this time and does not require TVP if SaO2 maintained. -pt planned for transfer to [facility] today -no other cardiac work up needed currently Please call with any additional questions.
--- NOTE | 2018-08-01 12:24 | PN ---
Progress Note, Physician History of Present Illness: AWAKE ON BIPAP SL TACHYPNEIC FEBRILE OVERNIGHT SPUTUM C/S GROWING PSEUDOMONAS/ YLO - Current Medication List Current Medications: Active Medications Acetaminophen (Tylenol -) 650 mg PO Q6H PRN PRN Reason: PAIN LEVEL 1-5 Last Admin: 07/31/18 09:58 Dose: 650 mg Al Hydroxide/Mg Hydroxide (Mylanta Oral Suspension -) 30 ml PO Q6H PRN PRN Reason: DYSPEPSIA Last Admin: 07/30/18 10:28 Dose: 30 ml Albuterol Sulfate (Ventolin 0.083% Nebulizer Soln -) 1 amp NEB Q6H PRN PRN Reason: SHORT OF BREATH/WHEEZING Last Admin: 08/01/18 04:45 Dose: 1 amp Albuterol/Ipratropium (Duoneb -) 1 amp NEB Q6H PRN PRN Reason: SHORTNESS OF BREATH Last Admin: 07/31/18 15:09 Dose: 1 amp Aspirin (Ecotrin -) 81 mg PO DAILY [facility] Last Admin: 08/01/18 11:25 Dose: Not Given Atorvastatin Calcium (Lipitor -) 10 mg PO HS [facility] Last Admin: 07/31/18 22:53 Dose: 10 mg Carbidopa/Levodopa (Sinemet 25/100 -) 1 each PO TID [facility] Last Admin: 08/01/18 06:03 Dose: 1 each Escitalopram Oxalate (Lexapro -) 10 mg PO DAILY [facility] Last Admin: 08/01/18 11:25 Dose: Not Given Fludrocortisone Acetate (Florinef -) 0.1 mg PO DAILY [facility] Last Admin: 08/01/18 09:38 Dose: 0.1 mg Furosemide (Lasix Injection -) 40 mg IVPUSH DAILY [facility] Last Admin: 08/01/18 09:37 Dose: 40 mg Gabapentin (Neurontin -) 200 mg PO TID [facility] Last Admin: 08/01/18 06:03 Dose: 200 mg Heparin Sodium (Porcine) (Heparin -) 5,000 unit SQ TID [facility] Last Admin: 08/01/18 06:03 Dose: 5,000 unit Meropenem 1 gm/ Dextrose 100 mls @ 200 mls/hr IVPB Q8H-IV [facility] Last Admin: 08/01/18 09:36 Dose: 200 mls/hr Vancomycin HCl 1,250 mg/ (Dextrose) 250 mls @ 166.667 mls/hr IVPB Q12H [facility]; Protocol Last Admin: 08/01/18 05:07 Dose: 166.667 mls/hr Insulin Aspart (Novolog Vial Sliding Scale -) 1 vial SQ ACHS [facility]; Protocol Last Admin: 08/01/18 11:25 Dose: Not Given Lidocaine (Lidoderm Patch -) 1 patch TP DAILY [facility] Last Admin: 08/01/18 09:37 Dose: 1 patch Losartan Potassium (Cozaar -) 100 mg PO DAILY [facility] Last Admin: 08/01/18 11:25 Dose: Not Given Miscellaneous (Lidoderm Patch Removal) 1 each MC DAILY@2200 [facility] Last Admin: 07/31/18 22:53 Dose: 1 each Pantoprazole Sodium (Protonix -) 40 mg PO DAILY [facility] Last Admin: 08/01/18 11:25 Dose: Not Given Saliva Substitute (Mouthkote Solution -) 1 applic MM DAILY [facility] Last Admin: 08/01/18 11:25 Dose: Not Given Silver Sulfadiazine (Silvadene -) 1 applic TP BID [facility] Last Admin: 08/01/18 09:40 Dose: 1 applic - Objective Vital Signs: Vital Signs Temperature 99.2 F 07/31/18 15:33 Pulse Rate 96 H 08/01/18 08:00 Respiratory Rate 27 H 08/01/18 09:00 Blood Pressure 132/76 08/01/18 08:00 O2 Sat by Pulse Oximetry (%) 94 L 08/01/18 09:00 Constitutional: Yes: No Distress Cardiovascular: Yes: Regular Rate and Rhythm, S1, S2 Respiratory: Yes: Rales, Rhonchi Gastrointestinal: Yes: Normal Bowel Sounds, Soft. No: Tenderness Edema: Yes Labs: CBC, BMP 08/01/18 05:30 08/01/18 05:30 INR, PTT INR 1.37 (0.82-1.09) H 07/29/18 11:00 Assessment/Plan ACUTE EXACERBATION CHRONIC LUNG DISEASE PNEUMONIC INFILTRATES ? PSEUDOMONAS ?MAC ?FUMGAL WILL CONTINUE MEROPENEM ADD ANTIFUNGAL TX
--- NOTE | 2018-08-01 12:39 | PN ---
Teaching Attending Note Name of Resident: Kadie Crowder ATTENDING PHYSICIAN STATEMENT I saw and evaluated the patient. I reviewed the resident's note and discussed the case with the resident. I agree with the resident's findings and plan as documented. SUBJECTIVE: Patient seen and examined in the ICU. Events overnight noted. Sinus arrest noted, likely related to hypoxemia as the patient was observed to remove remove her HFOT. Now awake and responsive. On NIPPV for about 1 hour and appears stable. Intake & Output 07/29/18 07/30/18 07/31/18 08/01/18 23:59 23:59 23:59 23:59 Intake Total 500 1000 1550 300 Output Total 2000 Balance 500 1000 -450 300 Weight 134 lb 1 oz 128 lb 1.6 oz 139 lb Last Vital Signs Temp Pulse Resp BP Pulse Ox 99.2 F 96 H 27 H 132/76 94 L 07/31/18 15:33 08/01/18 08:00 08/01/18 09:00 08/01/18 08:00 08/01/18 09:00 Active Medications Acetaminophen (Tylenol -) 650 mg PO Q6H PRN PRN Reason: PAIN LEVEL 1-5 Last Admin: 07/31/18 09:58 Dose: 650 mg Al Hydroxide/Mg Hydroxide (Mylanta Oral Suspension -) 30 ml PO Q6H PRN PRN Reason: DYSPEPSIA Last Admin: 07/30/18 10:28 Dose: 30 ml Albuterol Sulfate (Ventolin 0.083% Nebulizer Soln -) 1 amp NEB Q6H PRN PRN Reason: SHORT OF BREATH/WHEEZING Last Admin: 08/01/18 04:45 Dose: 1 amp Albuterol/Ipratropium (Duoneb -) 1 amp NEB Q6H PRN PRN Reason: SHORTNESS OF BREATH Last Admin: 07/31/18 15:09 Dose: 1 amp Aspirin (Ecotrin -) 81 mg PO DAILY [facility] Last Admin: 08/01/18 11:25 Dose: Not Given Atorvastatin Calcium (Lipitor -) 10 mg PO HS [facility] Last Admin: 07/31/18 22:53 Dose: 10 mg Carbidopa/Levodopa (Sinemet 25/100 -) 1 each PO TID [facility] Last Admin: 08/01/18 06:03 Dose: 1 each Escitalopram Oxalate (Lexapro -) 10 mg PO DAILY [facility] Last Admin: 08/01/18 11:25 Dose: Not Given Fludrocortisone Acetate (Florinef -) 0.1 mg PO DAILY [facility] Last Admin: 08/01/18 09:38 Dose: 0.1 mg Furosemide (Lasix Injection -) 40 mg IVPUSH DAILY [facility] Last Admin: 08/01/18 09:37 Dose: 40 mg Gabapentin (Neurontin -) 200 mg PO TID [facility] Last Admin: 08/01/18 06:03 Dose: 200 mg Heparin Sodium (Porcine) (Heparin -) 5,000 unit SQ TID [facility] Last Admin: 08/01/18 06:03 Dose: 5,000 unit Meropenem 1 gm/ Dextrose 100 mls @ 200 mls/hr IVPB Q8H-IV [facility] Last Admin: 08/01/18 09:36 Dose: 200 mls/hr Caspofungin 70 mg/ Sodium (Chloride) 250 mls @ 250 mls/hr IVPB ONCE ONE Stop: 08/01/18 13:59 Insulin Aspart (Novolog Vial Sliding Scale -) 1 vial SQ ACHS [facility]; Protocol Last Admin: 08/01/18 11:25 Dose: Not Given Lidocaine (Lidoderm Patch -) 1 patch TP DAILY [facility] Last Admin: 08/01/18 09:37 Dose: 1 patch Losartan Potassium (Cozaar -) 100 mg PO DAILY [facility] Last Admin: 08/01/18 11:25 Dose: Not Given Miscellaneous (Lidoderm Patch Removal) 1 each MC DAILY@2200 [facility] Last Admin: 07/31/18 22:53 Dose: 1 each Pantoprazole Sodium (Protonix -) 40 mg PO DAILY [facility] Last Admin: 08/01/18 11:25 Dose: Not Given Saliva Substitute (Mouthkote Solution -) 1 applic MM DAILY [facility] Last Admin: 08/01/18 11:25 Dose: Not Given Silver Sulfadiazine (Silvadene -) 1 applic TP BID [facility] Last Admin: 08/01/18 09:40 Dose: 1 applic Constitutional: Yes: awake, mildly tachypneic on NIPPV Eyes: Yes: Conjunctiva Clear, EOM Intact HENT: Yes: Atraumatic, Normocephalic Neck: Yes: Supple, Trachea Midline Cardiovascular: Yes: Regular Rate and Rhythm tachy Respiratory: Yes: Cough, Diminished, Rhonchi, SOB, on NIPPV, Tachypnea, (+) Accessory Muscle Use ...Inspection: Yes: WNL ...Clubbing: No Gastrointestinal: Yes: Normal Bowel Sounds, Soft Renal/: Yes: WNL Musculoskeletal: Yes: WNL Extremities: Yes: WNL Edema: No Peripheral Pulses WNL: Yes Integumentary: Yes: WNL Neurological: Yes: WNL, Alert, Oriented ...Motor Strength: WNL Psychiatric: Yes: WNL, Alert, Oriented Labs: reviewed Laboratory Results - last 24 hr 07/31/18 07/31/18 07/31/18 14:52 16:28 22:30 WBC RBC Hgb Hct MCV MCH MCHC RDW Plt Count MPV Absolute Neuts (auto) Neutrophils % Lymphocytes % Monocytes % Eosinophils % Basophils % Nucleated RBC % Anticoagulation Therapy No Result Required. Puncture Site No Result Required. ABG pH 7.32 L ABG pCO2 at Pt Temp 55.4 H ABG pO2 at Pt Temp 56.6 L ABG HCO3 27.9 H ABG O2 Sat (Measured) 83.7 L ABG O2 Content No Result Required. ABG Base Excess 1.7 Samir Test No Result Required. O2 Delivery Device No Result Required. Oxygen Flow Rate No Result Required. Vent Mode No Result Required. Vent Rate No Result Required. Mechanical Rate No Result Required. PEEP Pressure Support Vent No Result Required. Sodium Potassium Chloride Carbon Dioxide Anion Gap BUN Creatinine Creat Clearance w eGFR POC Glucometer 306 358 Random Glucose Calcium Phosphorus Magnesium Total Bilirubin AST ALT Alkaline Phosphatase B-Natriuretic Peptide Total Protein Albumin 07/31/18 08/01/18 08/01/18 22:32 03:55 05:10 WBC RBC Hgb Hct MCV MCH MCHC RDW Plt Count MPV Absolute Neuts (auto) Neutrophils % Lymphocytes % Monocytes % Eosinophils % Basophils % Nucleated RBC % Anticoagulation Therapy Puncture Site Right radial Right radial ABG pH 7.31 L 7.45 ABG pCO2 at Pt Temp 60.6 H 44.1 ABG pO2 at Pt Temp 81.0 60.7 L ABG HCO3 29.8 H 29.8 H ABG O2 Sat (Measured) 93.9 L 90.9 L ABG O2 Content 15.0 14.4 L ABG Base Excess 2.9 H 5.5 H Samir Test Positive Positive O2 Delivery Device High flow nc High flow nc Oxygen Flow Rate 60l/ 80% 50l/ 50% Vent Mode Vent Rate Mechanical Rate PEEP 0.0 0.0 Pressure Support Vent Sodium Potassium Chloride Carbon Dioxide Anion Gap BUN Creatinine Creat Clearance w eGFR POC Glucometer 290 Random Glucose Calcium Phosphorus Magnesium Total Bilirubin AST ALT Alkaline Phosphatase B-Natriuretic Peptide Total Protein Albumin 08/01/18 08/01/18 08/01/18 05:30 05:30 06:19 WBC 21.2 H RBC 3.52 L Hgb 11.2 Hct 32.7 D MCV 93.0 MCH 31.9 MCHC 34.3 RDW 16.8 H Plt Count 189 D MPV 7.6 Absolute Neuts (auto) 18.6 H Neutrophils % 87.8 H Lymphocytes % 6.4 L Monocytes % 4.1 Eosinophils % 1.5 Basophils % 0.2 D Nucleated RBC % 0 Anticoagulation Therapy Puncture Site ABG pH ABG pCO2 at Pt Temp ABG pO2 at Pt Temp ABG HCO3 ABG O2 Sat (Measured) ABG O2 Content ABG Base Excess Samir Test O2 Delivery Device Oxygen Flow Rate Vent Mode Vent Rate Mechanical Rate PEEP Pressure Support Vent Sodium 140 Potassium 3.7 Chloride 103 Carbon Dioxide 29 Anion Gap 9 BUN 17 Creatinine 0.7 Creat Clearance w eGFR 81.36 POC Glucometer 162 Random Glucose 173 H Calcium 8.0 L Phosphorus 3.0 Magnesium 1.5 L Total Bilirubin 1.7 H AST 43 H ALT 9 L Alkaline Phosphatase 374 H B-Natriuretic Peptide 4102.2 H Total Protein 6.2 L Albumin 1.5 L 08/01/18 11:11 WBC RBC Hgb Hct MCV MCH MCHC RDW Plt Count MPV Absolute Neuts (auto) Neutrophils % Lymphocytes % Monocytes % Eosinophils % Basophils % Nucleated RBC % Anticoagulation Therapy Puncture Site ABG pH ABG pCO2 at Pt Temp ABG pO2 at Pt Temp ABG HCO3 ABG O2 Sat (Measured) ABG O2 Content ABG Base Excess Samir Test O2 Delivery Device Oxygen Flow Rate Vent Mode Vent Rate Mechanical Rate PEEP Pressure Support Vent Sodium Potassium Chloride Carbon Dioxide Anion Gap BUN Creatinine Creat Clearance w eGFR POC Glucometer 175 Random Glucose Calcium Phosphorus Magnesium Total Bilirubin AST ALT Alkaline Phosphatase B-Natriuretic Peptide Total Protein Albumin Problem List - Problems (1) Pneumonia Code(s): J18.9 - PNEUMONIA, UNSPECIFIED ORGANISM (2) Angina pectoris Code(s): I20.9 - ANGINA PECTORIS, UNSPECIFIED (3) Anxiety Code(s): F41.9 - ANXIETY DISORDER, UNSPECIFIED (4) Asthma Code(s): J45.909 - UNSPECIFIED ASTHMA, UNCOMPLICATED Qualifiers: Asthma severity: unspecified severity Asthma complication type: uncomplicated (5) Back pain Code(s): M54.9 - DORSALGIA, UNSPECIFIED (6) Breast cancer Code(s): C50.919 - MALIGNANT NEOPLASM OF UNSP SITE OF UNSPECIFIED FEMALE BREAST (7) Cirrhosis of liver Code(s): K74.60 - UNSPECIFIED CIRRHOSIS OF LIVER Qualifiers: Hepatic cirrhosis type: alcoholic cirrhosis Ascites presence: with ascites Qualified Code(s): K70.31 - Alcoholic cirrhosis of liver with ascites (8) Coronary artery disease Code(s): I25.10 - ATHSCL HEART DISEASE OF [place]' CORONARY ARTERY W/O ANG PCTRS Qualifiers: Coronary Disease-Associated Artery/Lesion type: [place] artery [place] vs. transplanted heart: [place] heart Associated angina: without angina Qualified Code(s): I25.10 - Atherosclerotic heart disease of [place] coronary artery without angina pectoris (9) Cough Code(s): R05 - COUGH (10) Depression Code(s): F32.9 - MAJOR DEPRESSIVE DISORDER, SINGLE EPISODE, UNSPECIFIED (11) Diabetes Code(s): E11.9 - TYPE 2 DIABETES MELLITUS WITHOUT COMPLICATIONS Qualifiers: Diabetes mellitus type: type 2 (12) Elevated lactic acid level Code(s): R79.89 - OTHER SPECIFIED ABNORMAL FINDINGS OF BLOOD CHEMISTRY (13) Hx of antibiotic allergy Code(s): Z88.1 - ALLERGY STATUS TO OTHER ANTIBIOTIC AGENTS STATUS (14) Hyperlipidemia Code(s): E78.5 - HYPERLIPIDEMIA, UNSPECIFIED Qualifiers: Hyperlipidemia type: pure hypercholesterolemia Qualified Code(s): E78.00 - Pure hypercholesterolemia, unspecified; E78.0 - Pure hypercholesterolemia (15) Hypertension Code(s): I10 - ESSENTIAL (PRIMARY) HYPERTENSION (16) Interstitial lung disease Code(s): J84.9 - INTERSTITIAL PULMONARY DISEASE, UNSPECIFIED (17) Lactic acidosis Code(s): E87.2 - ACIDOSIS (18) Pneumonia Code(s): J18.9 - PNEUMONIA, UNSPECIFIED ORGANISM Qualifiers: (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 PLAN: ABX per ID NIPPV support: patient appears comfortable after 1 hour of use. Should be appropriate for transfer with NIPPV in place. Low threshold for intubation BD TX Cautious IVF hydration Strict I & O Follow cultures VTE prophylaxis Requires ICU monitoring due to tenuous respiratory status Will be transferred to [facility] for tertiary respiratory/cardiac support/care Dr Viveros Critical care time spent in reviewing chart, evaluating patient and formulating plan - 36 minutes.
[2018-08-01] MEDS ORDERED: CASPOFUNGIN ACETATE 70 MG in SODIUM CHLORIDE 250 ML IVPB ONE (13:00)
[2018-08-01 13:40] LABS: ANISOCYTOSIS 1+; MACROCYTOSIS 1+; OVALOCYTE 1+; PLATELET ESTIMATE NORMAL
[2018-08-01 17:40] VITALS: PULSE 93
[2018-08-01 17:58] VITALS: TEMP 99.5
[2018-08-01 18:32] VITALS: BP 126/63
--- NOTE | 2018-08-01 21:58 | EKG ---
Test Reason : Blood Pressure : / mmHG Vent. Rate : 094 BPM Atrial Rate : 094 BPM P-R Int : 142 ms QRS Dur : 086 ms QT Int : 368 ms P-R-T Axes : 055 -19 019 degrees QTc Int : 460 ms NORMAL SINUS RHYTHM NORMAL ECG WHEN COMPARED WITH ECG OF 30-JUL-2018 10:07, NO SIGNIFICANT CHANGE WAS FOUND Confirmed by MD RUTHY, ELLE ([id number]) on 08/01/2018 9:58:21 PM Referred By: MARCO OSBORN Confirmed By:ELLE BLISS MD
== END 2018-08-01 19:15 | disposition short-term general hospital (02) | DRG 871 ==
LOC: JER 10:25 → JERBED 13:17 → J6S 15:19 → JICU 07-30 13:23
PROVIDERS: ADMIT Family Medicine; ATTEND Family Medicine
PROC: 5A09357 Assistance with Respiratory Ventilation, Less than 24 Consecutive Hours, Continuous Positive Airway Pressure (ICD-10-PCS; principal; 2018-08-01)
DX: A41.9 Sepsis, unspecified organism (principal); J18.9 Pneumonia, unspecified organism; J96.01 Acute respiratory failure with hypoxia; R18.8 Other ascites; I69.354 Hemiplegia and hemiparesis following cerebral infarction affecting left non-dominant side; J84.9 Interstitial pulmonary disease, unspecified; E87.2 Acidosis; J44.1 Chronic obstructive pulmonary disease with (acute) exacerbation; E11.9 Type 2 diabetes mellitus without complications; I25.10 Atherosclerotic heart disease of native coronary artery without angina pectoris; G20 Parkinson's disease; D64.9 Anemia, unspecified; M48.56XD Collapsed vertebra, not elsewhere classified, lumbar region, subsequent encounter for fracture with routine healing; F03.90 Unspecified dementia, unspecified severity, without behavioral disturbance, psychotic disturbance, mood disturbance, and anxiety; R68.0 Hypothermia, not associated with low environmental temperature; F41.8 Other specified anxiety disorders; E11.649 Type 2 diabetes mellitus with hypoglycemia without coma; K70.31 Alcoholic cirrhosis of liver with ascites; I49.9 Cardiac arrhythmia, unspecified; R00.0 Tachycardia, unspecified; M25.551 Pain in right hip; K21.9 Gastro-esophageal reflux disease without esophagitis; R79.89 Other specified abnormal findings of blood chemistry; E11.43 Type 2 diabetes mellitus with diabetic autonomic (poly)neuropathy; K31.84 Gastroparesis; M54.9 Dorsalgia, unspecified; R05 Cough; R00.1 Bradycardia, unspecified; Z88.0 Allergy status to penicillin; Z87.11 Personal history of peptic ulcer disease; Z95.5 Presence of coronary angioplasty implant and graft; Z85.3 Personal history of malignant neoplasm of breast; Z86.73 Personal history of transient ischemic attack (TIA), and cerebral infarction without residual deficits
CPT/HCPCS: 36415; 36600; 71045-TC-FY; 71250-TC; 73523-TC-FY; 74018-TC-FY; 80053; 81003; 82803; 82962; 83605; 83735; 83880; 84100; 84484; 85025; 85027; 85610; 85730; 87040; 87070; 87077; 87086; 87184; 87186; 87205; 87804; 87899; 93005; 93010; 94640; 99284-25; J0131; J1644; J7030